=== PATIENT | female | born 1985 | race Two or more races ===

== ENCOUNTER 2019-12-15 15:09 | Outpatient (CLI) | payer OTHER, SELFPAY ==
--- NOTE | ~2019-12-15 | XR_ITS ---
EXAMINATION: XR knee LT 2V DATE: 12/15/2019 15:41 INDICATION: Left knee pain. TECHNIQUE: 2 views of left knee were obtained. COMPARISON: None. FINDINGS: Bone alignment is normal. No fracture. Joint spaces are well maintained. There is no knee j oint effusion. IMPRESSION: 1. Normal left knee. Reviewed, dictated and finalized at location A. IMPRESSION: 1. Normal left knee.
== END 2019-12-15 15:10 | disposition home or self-care (01) ==
PROVIDERS: PCP Emergency Medicine; Visit Provider Emergency Medicine
DX: M25.562 Pain in left knee (principal)
CPT/HCPCS: 73560

== ENCOUNTER 2020-07-22 13:12 | Emergency (ER) | payer OTHER, SELFPAY ==
--- NOTE | ~2020-07-22 | XR_ITS ---
EXAMINATION: XR lumbar spine 2-3V DATE: 07/22/2020 14:59 INDICATION: Low back pain. TECHNIQUE: 3 views of lumbar spine were obtained. COMPARISON: None. FINDINGS: Bone alignment is normal. Vertebral body heights and intervertebral disc heights are normal . The facet joints are unremarkable. There is an intrauterine device in expected position. IMPRESSION: 1. Normal lumbar spine. Reviewed, dictated and finalized at location A. IMPRESSION: 1. Normal lumbar spine.
--- NOTE | ~2020-07-22 | XR_ITS ---
EXAMINATION: XR pelvis 1-2V DATE: 07/22/2020 14:59 INDICATION: Right sacroiliac joint pain. TECHNIQUE: An anteroposterior view of the pelvis was obtained. COMPARISON: CT abdomen and pelvis 08/07/2018 FINDINGS: Bone alignment is normal. No fracture. There is mild osteoarthritis of the hips. The sacroi liac joints are normal. There is an intrauterine device in expected position. IMPRESSION: 1. Mild osteoarthritis of the hips. Reviewed, dictated and finalized at location A.
[2020-07-22 13:16] VITALS: BP 110/71; PULSE 92; RESP 20; TEMP 36.6; O2SAT 100
--- NOTE | 2020-07-22 14:34 | ED.GENADULT ---
HPI - General Adult General Chief complaint: Back Pain/Injury Stated complaint: LOW BACK Time Seen by Provider: 07/22/20 13:25 Source: patient Mode of arrival: ambulatory Limitations: no limitations History of Present Illness HPI narrative: Patient presents for evaluation of low back pain. She indicates she has chronic low back pain following 3 falls several years ago. She not sustained any fracture at that time. However she has had intermittent low back pain since that time. States that pain is in the right lower back with radiation of the right buttock. She describes the pain as sharp and rates it 10 out of 10 in severity. She also has a aching sensation in bilateral lower extremities. She states she saw a chiropractor in March of this year and x-ray and performed some therapy. She states in the last 2-3 days her pain has worsened, although she cannot identify cause for her worsening symptoms. She denies paresthesias and urinary symptoms. She has a hx of ulcerative colitis and was previously on remicade. She has not been on any therapies for UC in a few years. She had a GI provider at [facility] but she has not seen them since the start of the COVID pandemic. She denies any abdominal pain and change in bowel pattern. She has chronic diarrhea. She states that movement worsens her pain. No additional complaints or concerns. Related Data Home Medications Medication Instructions Recorded Confirmed ibuprofen 07/22/20 Allergies Allergy/AdvReac Type Severity Reaction Status Date / Time No Known Allergies Allergy Unverified 07/22/20 13:33 Review of Systems Review of Systems: Narrative: CONSTITUTIONAL: Denies fever, chills, or sweats. EYES: Denies visual changes, redness, or discharge. ENT: Denies rhinorrhea, congestion, sore throat, or otalgia. CARDIOVASCULAR: Denies chest pain, palpitations, or edema. RESPIRATORY: Denies cough or dyspnea. GASTROINTESTINAL: Denies abdominal pain, nausea, vomiting, or diarrhea. GENITOURINARY: Denies dysuria or hematuria. SKIN: Denies rash or itching. MUSCULOSKELETAL: Reports low back pain with radiation into the right lower extremity. Reports bilateral lower extremity myalgias. NEUROLOGIC: Denies headache, numbness, dizziness, or weakness. PSYCHIATRIC: Denies anxiety or depression. [facility] Past Medical History Medical History (Updated 07/22/20 @ 17:38 by Gonzales Be, DISEASE AND INSECT CONTROL BOSS, ) Iron deficiency Thalassemia Ulcerative colitis Surgical History Surgical History History of section Family History Family History Mother No pertinent family history Social History Social History Living arrangements: with family Gender identity (if verbalized by the patient): Female Sexual Orientation (if Verbalized by the Patient): Straight or Heterosexual Spiritual care concerns: No Exam Narrative: Exam Narrative: GENERAL: Well-appearing, well-nourished, and in no acute distress. HEAD: Normocephalic, atraumatic. EYES: PERRLA and EOMI. ENT: Nares clear, no rhinorrhea or epistaxis. Mucous membranes moist. Oropharynx without tonsillar hypertrophy exudate or other lesions. Bilateral TMs pearly cheung nonbulging NECK: Supple. No adenopathy or masses. No carotid bruits or JVD CHEST: Clear to auscultation. No respiratory distress. No wheezes rales or rhonchi HEART: Regular rate and rhythm. No murmur heard. Normal peripheral pulses. ABDOMEN: Soft, nontender, nondistended, normal active bowel sounds. EXTREMITIES: Tenderness over the right SI joint. No tenderness in midline or paraspinous muscles bilaterally of lumbar spine. Positive straight leg raise bilaterally at approximately 30 degrees. Exhibits facial grimacing when asked to perform movements during my exam. SKIN: Warm, dry, no rash. NEURO: No focal
[2020-07-22] MEDS: HYDROcodone/acetaminophen (*CRX) 5-325 MG TABLET 2 TAB PO (14:53)
[2020-07-22] MEDS: CYCLOBENZAPRINE HCL 10 MG TABLET PO (14:54)
[2020-07-22 14:59] LABS: Add Urine Microscopic? NO; Appearance Urine Clear (Clear); Bilirubin Urine Negative (Negative); Blood Urine Negative (Negative); Color Urine Yellow (Yellow); Glucose Urine UA Negative (Negative); Ketones Urine Negative (Negative); Leukocyte Esterase Ur Negative LEU/UL (Negative); Nitrate Urine Negative (Negative); Protein Urine Negative (Negative); Specific Grav Ur 1.009 (1.001-1.035); Urobilinogen Urine Negative mg/dL (<2.0)
[2020-07-22 15:23] VITALS: TEMP 36.6
[2020-07-22] MEDS: methylPREDNISolone SOD SUCC 125 MG VIAL IM (16:22)
[2020-07-22] MEDS: diazePAM (*CRX) 5 MG TABLET PO (16:22)
[2020-07-22 16:24] VITALS: BP 111/71; PULSE 65; RESP 18; O2SAT 100
[2020-07-22 16:37] LABS: Basophils Absolute Auto 0.1 K/mm3 (0.0-0.1); Basophils Percent Auto 0.6 % (0.2-1.2); Eosinophils Absolute Auto 0.1 K/mm3 (0-0.3); Eosinophils Percent Auto 1.6 % (0-4.4); Hematocrit 32.2 % (37.0-47.0); Hemoglobin 10.1 g/dL (12.0-15.0); Immature Granulocyte Absolute 0.03 K/mm3 (0.00-0.031); Immature Granulocyte Percent A 0.4 % (0-0.5); Immature Platelet Fraction Pct 7.2 % (0.9-11.2); Lymphocytes Percent Auto 30.6 % (18.3-44.2); Mean Corpuscular HGB Conc 31.4 g/dl (32-36); Mean Corpuscular Hemoglobin 22.1 pg (26-34); Mean Corpuscular Volume 70.3 fl (80-100); Monocytes Absolute Auto 0.5 K/mm3 (0.1-0.6); Monocytes Percent Auto 6.4 % (2.6-8.5); Neutrophils Percent Auto 60.4 % (45.5-73.1); Platelet Count Result 204 k/mm3 (150-375); Red Blood Count 4.58 M/mm3 (4.2-5.4); White Blood Count 8.2 K/mm3 (4.5-10.0)
[2020-07-22 16:48] LABS: Alanine Aminotransferase 14 U/L (4-35); Albumin Level 4.2 g/dL (3.5-5.1); Alkaline Phosphatase 34 U/L (38-126); Anion Gap 5 mmol/L (8-16); Aspartate Amino Transferase 17 U/L (14-36); Bilirubin,Total 0.6 mg/dL (0.2-1.3); Blood Urea Nitrogen 12 mg/dL (7-17); CRP 0.7 mg/dL (<1.0); Calcium 9.1 mg/dL (8.4-10.2); Carbon Dioxide 26 mmol/L (22-30); Chloride 107 mmol/L (98-107); Estimated CRCL calculation 120 ml/min; Estimated Glomerular Filt Rate > 60; Glucose 95 mg/dL (65-105); Potassium 4.1 mmol/L (3.4-5.0); Sodium 138 mmol/L (137-145)
[2020-07-22 17:14] LABS: Erythrocyte Sedimentation Rate 17 mm/hr (0-20)
[2020-07-22 17:48] VITALS: BP 118/78; PULSE 78; RESP 18; O2SAT 98
== END 2020-07-22 18:03 | disposition home or self-care (01) ==
PROVIDERS: Emergency Provider Nurse Practitioner; PCP Emergency Medicine
DX: M54.16 Radiculopathy, lumbar region (principal); K51.90 Ulcerative colitis, unspecified, without complications; M16.0 Bilateral primary osteoarthritis of hip; D56.9 Thalassemia, unspecified; E61.1 Iron deficiency
CPT/HCPCS: 36415; 72100; 72170; 80053; 81003; 81025; 85025; 85055; 85652; 86140; 96372; 99284; A9270; J2930

== ENCOUNTER 2021-07-21 23:39 | Emergency (ER) | payer OTHER, SELFPAY ==
--- NOTE | ~2021-07-21 | XR_ITS ---
EXAMINATION: XR chest 2V DATE: 07/22/2021 00:50 INDICATION: Cough TECHNIQUE: PA and lateral views of the chest are obtained. COMPARISON: None available FINDINGS: The lungs are free of acute opacities. There is no pleural effusion or pneumothorax. The ca rdiomediastinal silhouette is normal. The visualized bones and soft tissues are unremarkable. IMPRESSION: 1. No acute cardiopulmonary abnormality. Reviewed, dictated and finalized at location A.
[2021-07-21 23:45] VITALS: BP 104/67; PULSE 99; RESP 16; TEMP 36.1; O2SAT 100
--- NOTE | 2021-07-22 00:37 | ED.URI ---
HPI - URI/Sore Throat General Chief Complaint: Upper Respiratory Infection Stated Complaint: cough/sore throat/ pink eye Time Seen by Provider: 07/21/21 23:47 History of Present Illness HPI Narrative: 36-year-old female presents the emergency room with complaints of right ear pain, headache, cough, sore throat and right eye pain. Patient states she was recently [place] and returned and was exposed to multiple sick contacts within her family. Patient states that both of her children were recently diagnosed with COVID, and one of her children was diagnosed with conjunctivitis. Patient denies fever. Patient reports mild shortness of breath. Patient denies chest pain Related Data Allergies Allergy/AdvReac Type Severity Reaction Status Date / Time No Known Allergies Allergy Verified 07/21/21 23:48 Review of Systems Review of Systems: CONSTITUTIONAL: Denies fever, chills, or sweats. EYES: Denies visual changes. Erythema and purulent drainage in the right eye ENT: Reports rhinorrhea, congestion, sore throat, and otalgia CARDIOVASCULAR: Denies chest pain, palpitations, or edema. RESPIRATORY: Denies cough or dyspnea. GASTROINTESTINAL: Denies abdominal pain, nausea, vomiting, or diarrhea. GENITOURINARY: Denies dysuria or hematuria. SKIN: Denies rash or itching. MUSCULOSKELETAL: Denies back pain, joint pain, or myalgia. NEUROLOGIC: Denies headache, numbness, dizziness, or weakness. PSYCHIATRIC: Denies anxiety or depression. 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 HEAD: Normocephalic, atraumatic. EYES: PERRLA and EOMI. right eye conjunctival erythema with purulent drainage ENT: Nares clear, no rhinorrhea or epistaxis. Mucous membranes moist. Oropharynx without tonsillar hypertrophy exudate or other lesions. Bilateral TMs pearly cheung nonbulging. Clear effusion bilaterally NECK: Supple. No adenopathy or masses. No carotid bruits or JVD CHEST: Clear to auscultation. No respiratory distress. No wheezes rales or rhonchi HEART: Regular rate and rhythm. No murmur heard. Normal peripheral pulses. ABDOMEN: Soft, nontender, nondistended, normal active bowel sounds. EXTREMITIES: Normal range of motion. No edema. SKIN: Warm, dry, no rash. NEURO: No focal deficits. Alert and oriented x3. PSYCH: Normal mood and affect. Course Vital Signs Vital signs: Vital Signs Temperature 36.1 C L 07/21/21 23:45 Pulse Rate 99 07/21/21 23:45 Respiratory Rate 16 07/21/21 23:45 Blood Pressure 104/67 07/21/21 23:45 Pulse Oximetry 100 07/21/21 23:45 Temperature 36.1 C L 07/21/21 23:45 Pulse Rate 87 07/22/21 00:57 Respiratory Rate 18 07/22/21 00:57 Blood Pressure 94/63 L 07/22/21 00:57 Pulse Oximetry 98 07/22/21 00:57 MDM - URI/Sore Throat Lab Data Labs: Lab Results 07/22/21 Range/Units 01:02 Influenza A (RT-PCR) Negative (Negative) Influenza B (RT-PCR) Negative (Negative) SARS-CoV-2 RNA (RT-PCR) Negative Imaging Data My impression: CXR: No acute cardiopulmonary process Discharge Plan Discharge Clinical
[2021-07-22 00:57] VITALS: BP 94/63; PULSE 87; RESP 18; O2SAT 98
[2021-07-22 01:46] LABS: Influenza A QL RT-PCR Negative (Negative); Influenza B QL RT-PCR Negative (Negative); SARS-CoV-2 RNA PCR Negative
[2021-07-22 02:37] VITALS: BP 95/72; PULSE 89; RESP 18; O2SAT 100
== END 2021-07-22 02:38 | disposition home or self-care (01) ==
PROVIDERS: Emergency Provider Nurse Practitioner Family; PCP Emergency Medicine
DX: J06.9 Acute upper respiratory infection, unspecified (principal); H10.31 Unspecified acute conjunctivitis, right eye; Z20.822 Contact with and (suspected) exposure to COVID-19; D56.9 Thalassemia, unspecified; E61.1 Iron deficiency; F17.210 Nicotine dependence, cigarettes, uncomplicated
CPT/HCPCS: 71046; 87502; 96372; 99283; C9803; J1100; U0003; U0005

== ENCOUNTER 2022-01-04 00:42 | Day surgery (SDC) | payer OTHER, SELFPAY ==
[2021-12-20 13:57] VITALS: BMI 25.3
--- NOTE | 2022-01-03 15:06 | PM.HPGS ---
History of Present Illness History of Present Illness Consent: Risks, benefits, and alternatives have been discussed and questions answered. Patient agrees to proceed with procedure. Chief complaint: ulcerative colitis, nausea Narrative: Tessy Medina is a 36 year old female was referred for investigation of a poor appetite, early satiety and nausea, and also because she has a history of ulcerative colitis. She is not on any medication for that, it states that the last automobile damage field appraiser she saw said that she did not have ulcerative colitis. She denies diarrhea in fact is often constipated. One of her main complaints that she is extremely gassy. She develops bloating particularly after eating. She burps a lot and passes gas a lot. She does not use a CPAP machine. 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 Gender identity (if verbalized by the patient): Female Sexual Orientation (if Verbalized by the Patient): Straight or Heterosexual Spiritual care concerns: No Meds Home Medications and Allergies Home Medications Medication Instructions Recorded Confirmed Type doxycycline hyclate 100 mg capsule 100 mg PO DAILY 08/30/21 12/20/21 History Allergies Allergy/AdvReac Type Severity Reaction Status Date / Time No Known Allergies Allergy Verified 01/04/22 08:46 Exam Const: General: alert Orientation/consciousness: patient oriented x3 Resp: Auscultation: clear to auscultation bilaterally Cardio: Rhythm: regular rhythm GI: GI Palp: Yes Soft to palpation and No Tenderness to palpation present (GI) Neuro: General: patient oriented x3 Assessment and Plan Assessment and plan (1) Nausea: Code(s): R11.0 - Nausea Status: Acute Assessment and Plan: EGD with possible biopsy or dilatation or cautery. (2) Ulcerative colitis: Qualifiers: Digestive disease complication type: unspecified complication Ulcerative colitis location: unspecified ulcerative colitis location Qualified Code(s): K51.919 - Ulcerative colitis, unspecified with unspecified complications Code(s): K51.90 - Ulcerative colitis, unspecified, without complications Status: Acute Assessment and Plan: Colonoscopy with possible biopsy or polypectomy or cautery or injection of substances.
[2022-01-04 08:47] VITALS: BP 105/69; PULSE 90; RESP 18; TEMP 36.4; O2SAT 100
[2022-01-04] MEDS: LACTATED RINGERS 1,000 ML 150 ML IV CONT (08:55)
--- NOTE | 2022-01-04 09:19 | WPDANESEPPF ---
Anes - Initial Pre Proc Eval Procedure: Operation Date: 01/04/22 09:30 Proposed Procedures p Esophagogastroduodenoscopy & Colonoscopy - Byron Tsang MD Date/Time: 01/04/22 09:19 Surgeon: Byron Tsang MD Pre Op Diagnosis: ulcerative colitis, nausea Patient Data Age: 36 Gender: F Height: 1.65 m Weight: 74.7 kg Last Vital Signs Temp 97.6 F 01/04/22 08:47 Pulse 90 01/04/22 08:47 Resp 18 01/04/22 08:47 BP 105/69 01/04/22 08:47 Pulse Ox 100 01/04/22 08:47 O2 Del Method Room Air 01/04/22 08:47 Allergies Allergy/AdvReac Type Severity Reaction Status Date / Time No Known Allergies Allergy Verified 01/04/22 08:46 Home Medications Medication Instructions Recorded Confirmed Type doxycycline hyclate 100 mg capsule 100 mg PO DAILY 08/30/21 12/20/21 History Patient hx anesthesia problems: none Family hx anesthesia problems: none Results Review: All pre-operative results and documents have been reviewed as part of the pre-operative evaluation. 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 Gender identity (if verbalized by the patient): Female Sexual Orientation (if Verbalized by the Patient): Straight or Heterosexual Spiritual care concerns: No Anes - Eval Final PreProcedure Day of Procedure 01/04/22 09:19 Patient weight: normal Heart: regular rate and rhythm Lungs: clear to auscultation Airway: Mallampati scale class II Neurological: alert and oriented Last oral intake: >/= 8 hours ASA classification: III Emergent: no Anesthetic plan: proceed Anesthesia type and monitoring: general GIVS and standard monitoring Results Review: All pre-operative results and documents have been reviewed as part of the pre-operative evaluation. Informed Consent: The patient's anesthetic plan and its attendant risks and benefits were discussed with the patient/family/POA. Questions were solicited and answers provided to the satisfaction of the patient/family/POA.
--- NOTE | 2022-01-04 09:53 | SUR.OPER ---
EGD START: 931; END: 934. COLONOSCOPY START: 940; END: 950.
[2022-01-04 09:54] VITALS: BP 94/62; PULSE 69; RESP 20; O2SAT 100
[2022-01-04 10:04] VITALS: BP 96/58; PULSE 55; RESP 16; O2SAT 100
[2022-01-04 10:14] VITALS: BP 98/56; PULSE 60; RESP 24; O2SAT 100
--- NOTE | 2022-01-04 10:23 | SUR.PHASEII ---
Informed spouse that patient received sedation and cannot drive for 24 hours - per patient request.
== END 2022-01-04 10:25 | disposition home or self-care (01) ==
PROVIDERS: PCP Emergency Medicine; Visit Provider Internal Medicine Gastroenterology
PROC: 0DJ08ZZ Inspection of Upper Intestinal Tract, Via Natural or Artificial Opening Endoscopic (ICD-10-PCS; CPT 43235; principal; 2022-01-04 09:30)
DX: K62.6 Ulcer of anus and rectum (principal); K21.9 Gastro-esophageal reflux disease without esophagitis; F17.210 Nicotine dependence, cigarettes, uncomplicated
CPT/HCPCS: 45380; 43239; 87081; 88305; J2704; J7120

== ENCOUNTER 2022-04-09 09:33 | Outpatient (CLI) | payer OTHER, SELFPAY ==
--- NOTE | ~2022-04-09 | US_ITS ---
Abdominal Sonogram: Real-time sonographic imaging of the abdomen was performed. Clinical History: High ferritin Findings: The liver appears normal with no evidence of mass lesion or bile duct dilatation. Main por elida vein demonstrates normal direction of flow. The spleen is normal in size without evidence of foca l lesion. The gallbladder is well distended, and appears normal with no evidence of gallstone or wal l thickening. The common bile duct measures 5 mm. The visualized pancreas, aorta, and IVC are unrema rkable. The right kidney measures 12.4 cm in length and the left kidney measures 12.2 cm. There is no hydronephrosis or renal calculus. Impression: Unremarkable abdominal ultrasound. Reviewed, dictated and finalized at location . ICAL SUPERVISOR Impression: Unremarkable abdominal ultrasound.
== END 2022-04-09 09:34 | disposition home or self-care (01) ==
PROVIDERS: PCP Emergency Medicine; Visit Provider Emergency Medicine
DX: R79.89 Other specified abnormal findings of blood chemistry (principal)
CPT/HCPCS: 76700

== ENCOUNTER 2022-04-23 11:10 | Outpatient (CLI) | payer OTHER, SELFPAY ==
--- NOTE | ~2022-04-23 | XR_ITS ---
EXAMINATION: XR abdomen/kub 1V INDICATION: Abdominal distention with constipation TECHNIQUE: Supine views of the abdomen were obtained on 2 radiographs. COMPARISON: None FINDINGS: No free intraperitoneal gas or evidence of bowel obstruction. There is a normal volume of c olonic stool. The visualized left lung base is clear. An IUD is noted in the pelvis. IMPRESSION: 1. No radiographic correlate for the patient's symptoms. Reviewed, dictated and finalized at location L. [employer] SALES ASSISTANT
== END 2022-04-23 11:11 | disposition home or self-care (01) ==
PROVIDERS: PCP Emergency Medicine; Visit Provider Internal Medicine Gastroenterology
DX: R14.0 Abdominal distension (gaseous) (principal)
CPT/HCPCS: 74018

== ENCOUNTER 2023-04-28 00:49 | Day surgery (SDC) | payer OTHER, SELFPAY ==
[2023-04-14 14:26] VITALS: BMI 28.7
--- NOTE | 2023-04-25 10:57 | SUR.PREOP ---
Patient called regarding upcoming procedure. Reviewed preop instructions, new appointment times, and procedure prep.
--- NOTE | 2023-04-25 14:03 | PM.HPGS ---
History of Present Illness History of Present Illness Consent: Risks, benefits, and alternatives have been discussed and questions answered. Patient agrees to proceed with procedure. Chief complaint: Dysphagia Narrative: Tessy Medina is a 37 year old female Referred for investigation of dysphagia. She did have a EGD a little over a year ago which revealed only reflux changes. At that time she was troubled by nausea. Now she often feels as though there is a lump in her throat. She feels that something swallows by her larynx had will rise up and go back down. She has appointment to see an ENT physician next week. She does occasionally but very rarely feel that food is not going down all the way. Usually it is something spicy. She also feels that she has acid overload. Review of Systems Review of Systems: All systems reviewed & are unremarkable except as noted in HPI and below PMFSH Past Medical History Medical History Iron deficiency Thalassemia Ulcerative colitis Surgical History Surgical History History of section Family History Family History Mother , age 58 Ovarian cancer Sibling Hypertension Other Thalassemia Social History Social History Years smoked: 5 Smoking status: Current every day smoker Tobacco type: cigarettes Alcohol intake: never Substance use: never Substance use type: does not use Living arrangements: with family Occupation/Education: other 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 Gender identity (if verbalized by the patient): Female Sexual Orientation (if Verbalized by the Patient): Straight or Heterosexual Spiritual care concerns: No Meds Home Medications and Allergies Home Medications Medication Instructions Recorded Confirmed Type omeprazole 40 mg capsule,delayed 40 mg PO DAILY 04/14/23 04/14/23 History release Allergies Allergy/AdvReac Type Severity Reaction Status Date / Time No Known Allergies Allergy Verified 04/14/23 14:27 Exam Const: General: alert Orientation/consciousness: patient oriented x3 Resp: Auscultation: clear to auscultation bilaterally Cardio: Rhythm: regular rhythm GI: GI Palp: Yes Soft to palpation and No Tenderness to palpation present (GI) Neuro: General: patient oriented x3 Assessment and Plan Assessment and plan (1) Dysphagia: Code(s): R13.10 - Dysphagia, unspecified Status: Acute Assessment and Plan: EGD with possible biopsy or dilatation or cautery.
[2023-04-28 10:36] VITALS: BP 97/78; PULSE 91; RESP 17; TEMP 36.8; O2SAT 100
[2023-04-28] MEDS: LACTATED RINGERS 1,000 ML 150 ML IV CONT (11:02)
--- NOTE | 2023-04-28 11:13 | P.PNAN_ITS ---
Anes - Initial Pre Proc Eval Procedure: Operation Date: 04/28/23 11:30 Proposed Procedures p Esophagogastroduodenoscopy - Byron Tsang MD Date/Time: 04/28/23 11:13 Surgeon: yBron Tsang MD Pre Op Diagnosis: Dysphagia Patient Data Age: 37 Gender: F Height: 1.65 m Weight: 78.4 kg Last Vital Signs Temp 98.3 F 04/28/23 10:36 Pulse 91 04/28/23 10:36 Resp 17 04/28/23 10:36 BP 97/78 L 04/28/23 10:36 Pulse Ox 100 04/28/23 10:36 O2 Del Method Room Air 04/28/23 10:36 Allergies Allergy/AdvReac Type Severity Reaction Status Date / Time No Known Allergies Allergy Verified 04/14/23 14:27 Home Medications Medication Instructions Recorded Confirmed Type omeprazole 40 mg capsule,delayed 40 mg PO DAILY 04/14/23 04/14/23 History release Patient hx anesthesia problems: none Family hx anesthesia problems: none Results Review: All pre-operative results and documents have been reviewed as part of the pre- operative evaluation. 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 Gender identity (if verbalized by the patient): Female Sexual Orientation (if Verbalized by the Patient): Straight or Heterosexual Spiritual care concerns: No Anes - Eval Final PreProcedure Day of Procedure 04/28/23 11:13 Patient weight: obese Heart: regular rate and rhythm Lungs: clear to auscultation Airway: Mallampati scale class II Neurological: alert and oriented Last oral intake: >/= 8 hours ASA classification: III Emergent: no Anesthetic plan: proceed Anesthesia type and monitoring: general GIVS and standard monitoring Results Review: All pre-operative results and documents have been reviewed as part of the pre- operative evaluation. Informed Consent: The patient's anesthetic plan and its attendant risks and benefits were discussed with the patient/family/POA. Questions were solicited and answers provided to the satisfaction of the patient/family/POA.
[2023-04-28 11:29] VITALS: BP 101/68; PULSE 60; RESP 20; O2SAT 100
[2023-04-28 11:39] VITALS: BP 106/54; PULSE 60; RESP 20; O2SAT 100
[2023-04-28 11:49] VITALS: BP 88/54; PULSE 70; RESP 20; O2SAT 100
[2023-04-28 11:59] VITALS: BP 98/61; PULSE 74; RESP 20; O2SAT 100
[2023-04-28 12:09] VITALS: BP 95/65; PULSE 67; RESP 18; O2SAT 100
--- NOTE | 2023-04-28 13:08 | SUR.PHASEII ---
PT INTO POST OP 1129, BLOOD PRESSURE 73/41. PT SLEEPING. ANAY Chang CRNA AT BEDSIDE MEDICATING PT AND MONITORING WITH RN. PT'S BLOOD PRESSURE SOON 101/61, ORDERS RECEIVED FROM ANAY Chang CRNA IF NEEDED. PT AWAKE, ALERT AND DRINKING WATER. DR HENDERSON MADE AWARE, ORDERS RECEIVED TO GIVE PT MORE IVFs. ORDER CARRIED OUT BY THIS RN. VITAL SIGNS REMAIN STABLE AND BACK TO BASELINE (90/60s) PRIOR TO DISCHARGE. PT GIVEN DISCHARGE INSTRUCTIONS AND STATES UNDERSTANDING.
== END 2023-04-28 12:05 | disposition home or self-care (01) ==
PROVIDERS: PCP Emergency Medicine; Visit Provider Internal Medicine Gastroenterology
PROC: 0DJ08ZZ Inspection of Upper Intestinal Tract, Via Natural or Artificial Opening Endoscopic (ICD-10-PCS; CPT 43235; principal; 2023-04-28 11:30)
DX: K21.9 Gastro-esophageal reflux disease without esophagitis (principal); E61.1 Iron deficiency; D56.9 Thalassemia, unspecified; K51.90 Ulcerative colitis, unspecified, without complications; F17.210 Nicotine dependence, cigarettes, uncomplicated; E66.9 Obesity, unspecified; Z68.28 Body mass index [BMI] 28.0-28.9, adult; Z80.41 Family history of malignant neoplasm of ovary
CPT/HCPCS: 43239; 88305; J2001; J2371; J2704; J7120

== ENCOUNTER 2023-12-08 11:38 | Outpatient (CLI) | payer OTHER, SELFPAY ==
--- NOTE | ~2023-12-08 | XR_ITS ---
Clinical Indication: Acute bronchitis PA and lateral views of the chest: Comparison: None Findings: The lungs are clear, without evidence of focal consolidation or pleural effusion. Cardiome diastinal silhouette is within normal limits. Bones and soft tissues are unremarkable. Impression: Normal chest. Reviewed, dictated and finalized at location . Impression: Normal chest.
== END 2023-12-08 11:39 | disposition home or self-care (01) ==
PROVIDERS: PCP Emergency Medicine; Visit Provider Emergency Medicine
DX: J20.9 Acute bronchitis, unspecified (principal)
CPT/HCPCS: 71046

== ENCOUNTER 2024-03-12 00:19 | Day surgery (SDC) | payer OTHER, SELFPAY ==
[2024-03-05 14:50] VITALS: BMI 28.0
--- NOTE | 2024-03-05 14:56 | PC.NURSE ---
Report to the Outpatient Waiting Room, entrance under the green pavilion located off [facility], at time _0830_ on date _[id number]_. Planned Procedure Time: _1030_.? Time changes happen often and if your time is changed the preop area will call you the afternoon before. - You and your visitor will be asked to self-screen and do not enter if you have any COVID symptoms. Please call surgeon if you need to reschedule. - A mask is optional within the hospital at this time. Patients may have clear liquids (water, carbonated beverages, clear teas, apple juice) until 3 hours prior to surgery with a maximum of 20 ounces. - No food from midnight until time of surgery and no smoking. This includes no chewing gum, candy or mints. Take only the following medications with a SIP of water on the morning of surgery: __None DO NOT STOP ANY OF YOUR OTHER PRESCRIPTION MEDICATIONS PRIOR TO SURGERY EXCEPT THE FOLLOWING Medications to discontinue per physician ____None Please no make-up, nail malaysian, hairspray, perfume, deodorant, or body powder the day of surgery.? No jewelry (including any body piercings) or valuables the day of surgery, leave them at home.? Please take a shower or bath the night before, or the morning of, surgery with an antibacterial soap.? Wear comfortable, loose fitting clothing.? - Jewelry must be removed prior to entering the operating room.? Rings and piercings that are not removed may be cut off. - The hospital will not accept responsibility for valuables.? - Please leave all valuables, including medications, at home the day of surgery. If you are going home after surgery, a licensed truck driver salesperson must drive you home.? - NO public transportation without another adult if you receive anesthesia. - We recommend that an adult stay with you for 24 hours following discharge. - We also recommend that you do not drive, make important decision, drink alcoholic beverages, or take any drugs that were not prescribed by your health care provider for at least 24 hours after your discharge time. Follow any additional instructions given to you from your surgeon. Telephone instructions given to __Tabby__and asked if any additional questions and then verbalized understanding. Patient advised to call surgeon office or pre surgery nurse liaison [phone] if any additional questions.
[2024-03-12] VITALS (11 sets, daily range): BP systolic 87–99; BP diastolic 43–67; PULSE 50–74; RESP 10–18; TEMP 36.2–36.3; O2SAT 98–100
[2024-03-12] MEDS: ACETAMINOPHEN 500 MG TABLET 1000 MG PO (09:35)
[2024-03-12] MEDS: LACTATED RINGERS 1,000 ML 30 ML IV CONT ×2 (09:40→13:17)
[2024-03-12] MEDS: KETOROLAC 15 MG/ML VIAL (*BKC) IV PUSH (09:42)
--- NOTE | 2024-03-12 09:57 | WPDANESEPPF ---
Anes - Initial Pre Proc Eval Procedure: Operation Date: 03/12/24 10:30 Proposed Procedures p Laparoscopic Bilateral Salpingectomy with Right Salpingo-oophorectomy - Lexx Baryr MD Date/Time: 03/12/24 09:57 Surgeon: Lexx Barry MD Pre Op Diagnosis: cyst of right ovary Patient Data Age: 38 Gender: F Height: 1.65 m Weight: 78 kg Last Vital Signs Temp 97.2 F L 03/12/24 09:11 Pulse 73 03/12/24 09:11 Resp 18 03/12/24 09:11 BP 90/56 L 03/12/24 09:11 Pulse Ox 100 03/12/24 09:11 O2 Del Method Room Air 03/12/24 09:11 Allergies Allergy/AdvReac Type Severity Reaction Status Date / Time No Known Allergies Allergy Verified 03/12/24 09:21 Home Medications ?Medication ?Instructions ?Recorded ?Confirmed ?Type omeprazole 40 mg capsule,delayed 40 mg PO DAILY 04/14/23 03/12/24 History release folic acid 1 mg tablet 1 mg PO DAILY 03/05/24 03/12/24 History Patient hx anesthesia problems: none Family hx anesthesia problems: none Results Review: All pre-operative results and documents have been reviewed as part of the pre-operative evaluation. [facility] Past Medical History Medical History Iron deficiency Thalassemia Ulcerative colitis Surgical History Surgical History History of section Family History Family History Mother , age 58 Ovarian cancer Sibling Hypertension Other Thalassemia Social History Social History Years smoked: 10 Smoking status: Current every day smoker Tobacco type: cigarettes Alcohol intake: never Substance use: never Substance use type: does not use Do You Feel Safe in your Home?: Yes Lack of Transportation: No Lack of Food: Never True Current Housing: I Have Housing Concerned About Future Housing: No Difficulty Paying Gas/Electric Bills: No Difficulty Paying for Meds: No Currently Unemployed: No Education: High School Diploma/GED Difficulty w/ Childcare or Family Care: No Living arrangements: with family Occupation/Education: other 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 Gender identity (if verbalized by the patient): Female Sexual Orientation (if Verbalized by the Patient): Straight or Heterosexual Spiritual care concerns: No Anes - Eval Final PreProcedure Day of Procedure 03/12/24 09:57 Patient weight: overweight Heart: regular rate and rhythm Lungs: clear to auscultation Airway: Mallampati scale class II Neurological: alert and oriented Last oral intake: >/= 8 hours ASA classification: II Emergent: no Anesthetic plan: proceed Anesthesia type and monitoring: general ETT and standard monitoring Results Review: All pre-operative results and documents have been reviewed as part of the pre-operative evaluation. Thalaseemia, only on folate. Poss IBD but pt states dx is uncertain after recent GI workup. Pt can walk 1-2 fos, no cp, only mild dyspnea if walking quickly. Informed Consent: The patient's anesthetic plan and its attendant risks and benefits were discussed with the patient/family/POA. Questions were solicited and answers provided to the satisfaction of the patient/family/POA.
--- NOTE | 2024-03-12 10:11 | PM.IMHP ---
H&P: HPI History of Present Illness Date/Time: 03/12/24 10:11 Chief Complaint: Pelvic pain Narrative: This patient is a 38-year-old female with right ovarian cyst unwanted fertility. We have agreed to perform laparoscopic right oophorectomy and bilateral salpingectomy with IUD removal. The patient understands the details of the procedure. The procedure has been explained in detail. She understands the risks. She understands that injuries may occur that result in hospitalization, more surgery, and severe illness. She understands risk of hemorrhage and infection. She denies any chest pain or shortness of breath. She denies any nausea, vomiting, fever, chills. Review of Systems Review of Systems: All systems reviewed & are unremarkable except as noted in HPI and below Constitutional: Constitutional: Denies chills, Denies fatigue, Denies fever(s) and Denies weakness Eyes: Eyes: Denies blurry vision, Denies change in vision, Denies loss of peripheral vision, Denies loss of vision, Denies other visual disturbances and Denies eye pain ENT: Denies vertigo, Denies dizziness, Denies hearing loss, Denies mouth pain, Denies nasal obstruction, Denies neck mass and Denies neck pain Cardiovascular: Cardiovascular: Denies chest pain, Denies diaphoresis, Denies syncope, Denies leg edema and Denies dyspnea Respiratory: Respiratory: Denies chest congestion, Denies cough, Denies hemoptysis, Denies dyspnea and Denies wheezing Gastrointestinal: Gastrointestinal: Denies abdominal pain, Denies constipation, Denies diarrhea, Denies nausea and Denies vomiting Genitourinary: Genitourinary: Denies hematuria, Denies change in libido, Denies nocturia, Denies genital lesions, Denies flank pain and Denies urinary urgency Musculoskeletal: Musculoskeletal: Denies abnormal gait, Denies back pain, Denies myalgias, Denies arthralgias, Denies joint swelling, Denies muscle weakness and Denies neck pain Integumentary/Breasts: Skin/Breast: Denies swelling, Denies breast pain, Denies breast mass, Denies dry skin, Denies nipple discharge, Denies unusual bruising and Denies jaundice Neurologic: Denies Neuro-related abnormal movements, Denies Abnormal speech present, Denies abnormal gait, Denies behavioral changes, Denies confusion, Denies vertigo, Denies dizziness, Denies syncope, Denies loss of vision, Denies memory loss, Denies convulsions and Denies weakness Psychiatric: Psychiatric: Denies abnormal sleep pattern, Denies behavioral changes, Denies change in libido, Denies confusion, Denies depression, Denies anhedonia and Denies memory loss Endocrine: Endocrine: Reports no additional endocrine complaints, Denies change in libido and Denies fatigue Hematologic/Lymphatic: Hematologic/Lymphatic: Reports no additional hematologic/lymphatic complaints Allergic/Immunologic: Allergic/Immunologic: Reports no additional allergic/immunologic complaints and Denies wheezing PMFSH Past Medical History Medical History Iron deficiency Thalassemia Ulcerative colitis Surgical History Surgical History History of section Family History Family History Mother , age 58 Ovarian cancer Sibling Hypertension Other Thalassemia Social History Social History Years smoked: 10 Smoking status: Current every day smoker Tobacco type: cigarettes Alcohol intake: never Substance use: never Substance use type: does not use Do You Feel Safe in your Home?: Yes Lack of Transportation: No Lack of Food: Never True Current Housing: I Have Housing Concerned About Future Housing: No Difficulty Paying Gas/Electric Bills: No Difficulty Paying for Meds: No Currently Unemployed: No Education: High School Diploma/GED Difficulty w/ Childcare or Family Care: No Living arrangements: with family Occupation/Education: other 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 Gender identity (if verbalized by the patient): Female Sexual Orientation (if Verbalized by the Patient): Straight or Heterosexual Spiritual care concerns: No Meds Home Medications and Allergies Home Medications ?Medication ?Instructions ?Recorded ?Confirmed ?Type omeprazole 40 mg capsule,delayed 40 mg PO DAILY 04/14/23 03/12/24 History release folic acid 1 mg tablet 1 mg PO DAILY 03/05/24 03/12/24 History Allergies Allergy/AdvReac Type Severity Reaction Status Date / Time No Known Allergies Allergy Verified 03/12/24 09:21 Vital Signs Vital Signs - 24 hr 03/12/24 09:11 Temperature 97.2 F L Pulse Rate 73 Respiratory Rate 18 Blood Pressure 90/56 L Pulse Oximetry 100 Oxygen Delivery Room Air Exam Const: General: cooperative, healthy appearing, comfortable and no acute distress Orientation/consciousness: oriented to person, oriented to place and oriented to time HENMT: Head: normal to inspection Ears: external ears normal Face/Nose/Sinus: Normal external nose present and normal facial exam Face and sinus: normal facial exam Eyes: General: appearance normal, both eyes and all related structures Neck: Neck: normal visual inspection, trachea midline and supple Resp: Auscultation: clear to auscultation bilaterally, no crackles, no rales, no rhonchi and no wheezes Cardio: Rate: regular rate Rhythm: regular rhythm Heart sounds: no click, no murmurs and no rubs GI: GI Palp: No abdominal tenderness, No Soft to palpation, No Tenderness to palpation present (GI) and No Palpable mass present Auscultation: normal bowel sounds Skin: General skin exam: normal color and no rashes or lesions noted Neuro: General: oriented to person, oriented to place and oriented to time Extrem: General: normal to inspection, no joint enlargement, no clubbing, cyanosis or edema, no pedal edema and no calf tenderness Psych: Appearance: grossly normal Mental Status: mental status grossly normal Speech and movement: Normal speech and movement present Assessment and Plan Assessment and plan (1) Ovarian cyst: Code(s): N83.209 - Unspecified ovarian cyst, unspecified side Status: Acute (2) Pelvic pain: Code(s): R10.2 - Pelvic and perineal pain Status: Acute (3) Unwanted fertility: Code(s): Z30.09 - Encounter for other general counseling and advice on contraception Status: Acute Plan This patient is a 38-year-old female with right ovarian cyst unwanted fertility. We have agreed to perform laparoscopic right oophorectomy and bilateral salpingectomy with IUD removal. She understands risks, benefits, and alternatives. She has completed the informed consent process is ready to proceed.
--- NOTE | 2024-03-12 10:14 | WPDHPUPDATE1 ---
History and Physical Update Update Date/Time: 03/12/24 10:14 History and Physical has been reviewed, including an updated exam of the patient. There are NO changes in the patient's condition. Risks, benefits, and alternatives have been discussed and questions answered. Patient agrees to proceed with procedure.
[2024-03-12] MEDS: SCOPOLAMINE 1 MG PATCH 1 PATCH TRANSDERM (10:35)
--- NOTE | 2024-03-12 11:33 | W.PM.PROC2 ---
Procedure Note - Detailed Date of Procedure 03/12/24 Pre-op Diagnosis cyst of right ovary, pelvic pain, unwanted fertility Post-op Diagnosis Same Procedure Performed Laparoscopic bilateral salpingectomy with right oophorectomy, IUD removal Surgeon Lexx Barry MD Anesthesia General Indications Unwanted fertility Findings Right ovarian cyst, otherwise, Normal pelvic anatomy Description of Procedure The patient was taken the operating room. She was prepped and draped in the dorsal lithotomy position after induction of general anesthesia. A 5 mm skin incision was made in the left upper quadrant of the abdominal skin. A 5 mm trocar was inserted the intra-abdominal cavity under direct visualization of the scope. Pneumoperitoneum was achieved. A 11 mm trocar was inserted in the left lower quadrant identical fashion. A 5 mm infraumbilical trocar was inserted in identical fashion as well. The bilateral fallopian tubes were removed. This was done by using a LigaSure cautery. The mesosalpinx adjacent to the tube was cauterized transected with LigaSure. This was initiated in the area the ovary and in a stepwise fashion moved medially to the area of the cornu of the uterus. Once there the fallopian tube was cauterized and transected. This was done in identical fashion on each side. The right ovary was removed by a cauterized infundibulopelvic ligament and a suspensory ligament of the ovary pain. the paraovrian tissue was cauterized, transected in a stepwise fashion. The ovary and the fallopian tubes were placed in an endobag and were taken out through the left lower quadrant trocar site. The pneumoperitoneum was reduced. The trocars removed. The skin was closed with subcuticular 4 Monocryl and covered with Dermabond. She was taken to cover stable condition. Sponge lap and needle counts were correct x2. IUD was removed using a speculum and a ring forceps. Estimated Blood Loss 5 Drains No Packing No Pathology Yes Complications No immediate complications Condition Stable Disposition PACU
[2024-03-12] MEDS: fentaNYL CITRATE INJ (*CRX) 100 MCG/2 ML VIAL 25 MCG IV PUSH ×7 (11:55→13:04)
[2024-03-12] MEDS: oxyCODONE HCL (*CRX) 5 MG TAB IR PO ×2 (12:45→14:14)
[2024-03-12] MEDS: ONDANSETRON INJ 4 MG/2 ML VIAL IV PUSH (13:39)
--- OUTSIDE RECORDS SUMMARY | 2024-03-19 00:49 | XMS_ITS | Data Portability ---
Author Organization [facility] [place] Address [address] [place] [address] Care Team Providers Care Database Report Writer Name Role Phone GREGORY AYOUB Primary Care Provider Assessment Encounter Date Assessment Date Assessment LastModified by Organization Details LastModified Time 02/23/2024 02/23/2024 Annual gynecological exam performed. Patient will come back in a year unless there are new symptoms. [email or web address] Not available 02/23/2024 11:35:36 Plan of Treatment Reminders Order Date Submit Date Provider Last Modified By Organization Details Last Modified Time Details Appointments SURG POST OP 2024 11:15A Christel BARRY MD Not available Not available Not available Lab CBC w/ auto diff [address] (Lab), [address] [place], [address], 09/30/2023 11:39:44 CMP, serum or plasma [address] (Lab), [address] [place], [address], 09/30/2023 11:39:44 lipid panel, blood [address] (Lab), [address] [place], [address], 09/30/2023 11:39:45 TSH, serum or plasma [address] (Lab), [address] [place], [address], 09/30/2023 11:39:45 25-hydrox yvitamin D2 + 25-hydrox yvitamin D3, QN, serum or plasma [address] (Lab), [address], [place], [address], 09/30/2023 11:39:45 ova1, serum [address] (Lab), [address], [place], [address], 09/30/2023 11:39:45 ova1, serum 2023 024 [facility] (Lab), [address] [facility], [place], [address], 02/24/2024 10:48:39 Referral None recorded. Procedures None recorded. Surgeries salpingec jose enrique, laparosco pic (SURG) [address], [facility], [address], 03/15/2024 09:24:01 oophorect shan (SURG) 2023 024 [facility], [address], [address], 03/12/2024 12:42:57 Imaging US, transvagi nal [address], [address], [address], [place], [address], 08/05/2023 20:58:23 US, transvagi nal [address], [address], [place], [address], 02/17/2024 21:47:15 Medication Orders None recorded. Patient TargetsNo targets recorded. Patient InstructionsNo instructions recorded. Reason for Referral None Reported. Results Created Date Observation Date Name Description Value Unit Range Abnormal Flag Note LastModifiedBy Organization Detail LastModifiedTime 02/19/20 24 02/19/2024 OVA 1 scan result See Scanne d Result Not Available [facility] (Lab) [address], [place], [address], 02/24/2024 10:48:39 02/23/20 24 02/23/2024 IMAGE GUIDE D PAP AND HPV REGAR DLESS image guided Pap, HPV regardless of Pap result SEE RESULT S BELOW CASE REPOR T: Cytol ogy Gynec ologi daisy Repor t Case: [id number] Autho annette g Provi janeth: Husam Barry MD Colle cted: 02/22 1324 Order ing Locat ion: [place] Patho logy Recei milka: 02/23 0236 First Scree n: Radha Agarwal ret, CT Speci men: Scree bowen Pap - Image d, Cervi x STATE MENT OF ADEQU ACY: Satis facto ry for evalu ation Trans forma tion zone compo nent prese nt Parti ally obscu ring infla mmati on prese nt. ----- ----- ----- ----- ----- ----- ----- ----- ----- ----- ----- ----- ----- ----- ----- ----- ----- ---- FINAL DIAGN OSIS: Negat clif for Intra epith elial Lesio n or Isael garcia (NIL) . Shift in melissa sugge stive of bacte rial vagin osis. Elect marilynn haji tiffanie d by ANN MARIE Ramirez ret on 03/02 at 1619 MANAGER HYDRAULIC ----- ----- ----- ----- ----- ----- ----- ----- ----- ----- ----- ----- ----- ----- ----- ----- ----- ---- HPV RESUL TS: HPV mRNA E6/E7 : No HPV mRNA Detec chago NOTE: This high risk HPV mRNA assay detec ts fourt een high- risk HPV types (16, 18, 31, 33, 35, 39, 45, 51, 52, 56, 58, 59, 66, 68) witho ut diffe renti ation . COMME NT: This speci men was revie wed by a Cytot echno logis t and/o r Patho logis t (as indic ated in this repor t) after evalu ation using the Thinp rep Imagi ng Syste m. CLINI DAISY INFOR MATIO N: Menst rual Statu s: LMP (if appli cable ): Clini daisy Histo ry/Pr eviou s Pap: Type of Neopl abdirahman (if appli cable ): Signi fican t Clini daisy Findi ngs: Other Histo ry: Hormo candice (if appli cable ): PAP EDUCA RIZWANA L NOTE: The Pap Test is a scree bowen test with an inher ent false negat clif rate. Liqui d-bas ed sampl ing may decre ase, but will not elimi benjamin, false negat clif resul ts. A negat clif resul t does not precl ude the prese nce and/o r devel opmen t of disea se, since the prese nce of abnor mal cells in the sampl e depen ds on the locat ion of the lesio n and sampl ing techn ique. Tere nued regul ar scree bowen is the best metho d of cance r preve ntion . If repor chago cytol ogic findi ng do not corre late with physi daisy and/o r histo rical findi ngs, furth er inves tigat ion is recom elvia d, as carlitoi bryn peters nted. Not Available [facility] (Lab) [address], [place], [address], 03/02/2024 17:25:16 08/05/19 24 08/05/2023 US, trans vagin al No observ ation record ed. [email or web address] [place] [address], [place], [address], 08/05/2023 13:06:07 08/05/19 24 08/05/2023 US, trans vagin al No observ ation record ed. [email or web address] [address], [place], [address], 08/05/2023 21:41:45 02/17/20 24 02/17/2024 US, trans vagin al No observ ation record ed. [email or web address] [place] [address], [place], [address], 02/17/2024 18:19:16 02/17/20 24 02/17/2024 US, trans vagin al No observ ation record ed. [email or web address] [address], [place], [address], 02/18/2024 15:04:30 Result Notes None recorded. Problems Name Problem SNOMED Code Status Onset Date Resolution Date Notes Provider Name and Address Organization Details Recorded Time Disorder of labor / delivery Completed 201607/17/2020 Twin pregnanc y, dichorio heather/diam niotic, first trimeste r;Practi ce ID: 0001 Hanna Zenia carr [facility] 15:04:09 Antenata l screenin g Completed 201607/17/2020 Encounte r for antenata l screenin g for nuchal transluc ency;Pra ctice ID: 0001 Hanna carr [facility] 15:03:40 Gestatio n period, 13 weeks [id number] Completed 201607/17/2020 13 weeks gestatio n of pregnanc y;Practi ce ID: 0001 Hanna carr [facility] 15:05:01 Normal pregnanc y in multigra kamari [id number] Completed 201607/17/2020 Encounte r for suprvsn of normal pregnanc y, second trimeste r;Practi ce ID: 0001 Hanna carr, [facility] 15:16:28 Spotting per vagina in pregnanc y [id number] Completed 201607/17/2020 Spotting complica ting pregnanc y, second trimeste r;Practi ce ID: 0001 Hanna carr, [facility] 15:21:34 Gestatio n period, 17 weeks [id number] Completed 201607/17/2020 17 weeks gestatio n of pregnanc y;P[facility]i ce ID: 0001 [facility] 15:05:03 Disorder of labor / delivery Completed 201607/17/2020 Twin pregnanc y, dichorio heather/diam niotic, second trimeste r;Practi ce ID: 0001 Hanna carr, [facility] 15:04:12 Antenata l screenin g for malforma tion Completed 201607/17/2020 Encounte r for antenata l screenin g for malforma tions;Pr actice ID: 0001 Hanna carr [facility] 15:03:43 Gestatio n period, 19 weeks [id number] Completed 201607/17/2020 19 weeks gestatio n of pregnanc y;Practi ce ID: 0001 Hanna carr [facility] 15:05:05 Prematur e labor [id number] Completed 201707/17/2020 labor without delivery , second trimeste r;Practi ce ID: 0001 Hanna carr [facility] 15:17:06 Gestatio n period, 22 weeks [id number] Completed 201707/17/2020 22 weeks gestatio n of pregnanc y;Practi ce ID: 0001 Hanna carr, [facility] 15:14:39 Complica tion of pregnanc y, childbir th and/or puerperi [id number] Completed 201707/17/2020 Oth diseases and conditio ns compl preg/chl dbrth;Pr actice ID: 0001 Hanna carr, [facility] 15:21:44 Gestatio n period, 23 weeks [id number] Completed 201707/17/2020 23 weeks gestatio n of pregnanc y;Practi ce ID: 0001 Hanna carr, [facility] 15:05:[address] Concept Completed 201707/17/2020 Decrease d movement s, second trimeste r, unsp;Pra ctice ID: 0001 Hanna carr, [facility] 15:17:23 Clinical finding Completed 201707/17/2020 Pain in right leg;Prac batsheva ID: 0001 Hanna carr, [facility] 15:04:43 Clinical finding Completed 201707/17/2020 Pain in left leg;Prac batsheva ID: 0001 Hanna carr, [facility] 15:04:45 Gestatio n period, 28 weeks [id number] Completed 201707/17/2020 28 weeks gestatio n of pregnanc y;Practi ce ID: 0001 Hanna carr, [facility] 15:14:41 Disorder of labor / delivery Completed 02/12/ 2018 07/17/2020 Twin pregnanc y, dichorio heather/diam niotic, third trimeste r;Practi ce ID: 0001 Hanna carr, [facility] 15:04:14 Pelvic and perineal pain [id number] Completed 201707/17/2020 Pelvic and perineal pain;Pra ctice ID: 0001 Hanna carr, [facility] 15:16:[address] Concept Completed 201707/17/2020 Decrease d movement s, third trimeste r, fetus 1;Practi ce ID: 0001 Hanna carr, [facility] 15:17:[address] Concept Completed 201707/17/2020 Decrease d movement s, third trimeste r, fetus 2;Practi ce ID: 0001 Hanna carr, [facility] 15:17:27 Gestatio n period, 31 weeks [id number] Completed 201707/17/2020 31 weeks gestatio n of pregnanc y;Practi ce ID: 0001 Hanna carr, [facility] 15:14:43 finding Completed 201707/17/2020 Matern care for oth or susp poor fetl grth, third tri, unsp;Pra ctice ID: 0001 Hanna carr, [facility] 15:04:41 Gestatio n period, 32 weeks [id number] Completed 201707/17/2020 32 weeks gestatio n of pregnanc y;Practi ce ID: 0001 Hanna carr, [facility] 15:14:45 Gestatio n period, 33 weeks [id number] Completed 201707/17/2020 33 weeks gestatio n of pregnanc y;Practi ce ID: 0001 [facility] 15:14:47 Oligohyd ramnios Completed 201707/17/2020 Oligohyd ramnios, third trimeste r, not applicab le or unsp;Pra ctice ID: 0001 [facility] 15:04:50 Urinary tract infectio us disease [id number] Completed 201707/17/2020 Urinary tract infectio n, site not specifie d;Practi ce ID: 0001 [facility] 15:21:46 Lochia finding Completed 201707/17/2020 Encounte r for routine postpart um follow-u p;Practi ce ID: 0001 [facility] 15:16:15 Subacute and chronic vaginiti s [id number] Completed 201707/17/2020 Subacute and chronic vaginiti s;Practi ce ID: 0001 [facility] 15:21:36 Pain Completed 201707/17/2020 Upper abdomina l pain, unspecif ied;Prac batsheva ID: 0001 [facility] 15:16:30 Imaging of abdomen abnormal [id number] Completed 201707/17/2020 Abn findings on dx imaging of abd regions, inc retroper iton;Pra ctice ID: 0001 [facility] 15:16:05 Genetic predispo sition 74155687 Completed 201707/17/2020 Genetic suscepti bility to malignan t neoplasm of ovary;Pr actice ID: 0001 [facility] 15:04:59 Family history of malignan t neoplasm of ovary 106186002 Completed 201707/17/2020 Family history of malignan t neoplasm of ovary;Pr actice ID: 0001 Hanna carr [facility] 15:05:23 Foreign body in cervix 211268009 Completed 201707/17/2020 Foreign body in uterus, initial encounte r;Practi ce ID: 0001 Hanna carr [facility] 15:04:57 Insertio n of intraute rine contrace ptive device Completed 201707/17/2020 Encounte r for insertio n of intraute rine contrace ptive device;P ractice ID: 0001 [facility] 15:16:10 Pregnanc y test negative [id number] Completed 201707/17/2020 Encounte r for pregnanc y test, result negative ;Practic e ID: 0001 Hanna carr [facility] 15:17:03 Acute vaginiti s [id number] Completed 201707/17/2020 Acute vaginiti s;Practi ce ID: 0001 [facility]:03:[address] Concept Completed 201707/17/2020 Encntr for customer acquisition specialist exam (general ) (routine ) w/o abn findings ;Practic e ID: 0001 Hanna carr [facility] 15:17:30 Mass of right breast [id number] Completed 201807/17/2020 Unspecif ied lump in the right breast, unspecif ied quadrant ;Practic e ID: 0001 Hanna carr [facility] 15:16:18 Lesion of ovary Completed 201807/17/2020 Other ovarian cyst, right side;Pra ctice ID: 0001 Hanna carr [facility] 1 15:04:07 Cyst of ovary Completed 201807/17/2020 Unspecif ied ovarian cyst, unspecif ied side;Pra ctice ID: 0001 Hanna carr [facility] 1 15:03:50 Family planning surveill ance Completed 201107/17/2020 Contrace ptive surveill ance, unspecif ied;Chace rded Elsewher e: No Locat ion: [facility] S ource: EHR Photography Instructor heather: N Practi ce ID: 0001 Melchor lable Time: 02:00:00 PM Hanna carr [facility] 15:04:33 Clinical finding Completed 201707/17/2020 Presence of (intraut erine) contrace ptive device;R ecorded Elsewher e: No Locat ion: [facility] ource: EHR Photography Instructor heather: N Practi ce ID: 0001 Melchor lable Time: 02:00:00 PM Hanna carr [facility] 15:03:48 Removal of intraute rine device Completed 201507/17/2020 Encounte r for removal of intraute rine contrace ptive device;R ecorded Elsewher e: No Locat ion: [facility] S ource: EHR Photography Instructor heather: N Practi ce ID: 0001 Melchor lable Time: 05:00:00 PM Hanna Knutson [facility] 1 15:17:09 Uses IUD (intraut erine device) contrace ption [id number] Completed 201407/17/2020 IUD check;Re corded Elsewher e: No Locat ion: [facility] ource: EHR Photography Instructor heather: N Practi ce ID: 0001 Melchor lable Time: 01:45:[address] [facility] 1 15:16:13 Breast lump [id number] Completed 201607/17/2020 Unspecif ied lump in breast;R ecorded Elsewher e: No Locat ion: [facility] ource: EHR Photography Instructor heather: N Leonti ce ID: 0001 Melchor lable Time: 09:30:00 AM Hanna Knutson [facility] 1 15:03:45 Speciali zed medical examinat ion Completed 201407/17/2020 Well woman check;Re corded Elsewher e: No Locat ion: [facility] S ource: EHR Photography Instructor heather: N Leonti ce ID: 0001 Melchor lable Time: 01:45:00 PM Hannaeliza Knutson [facility] 15:21:31 Infectio n screenin g Completed 201707/17/2020 Encounte r for screenin g for oth infec/pa rastc diseases ;Recorde d Elsewher e: No Locat ion: [facility] ource: EHR Photography Instructor heather: N Leonti ce ID: 0001 Melchor lable Time: 03:15:00 PM Hanna Knutson [facility] 1 15:16:08 Screenin g for malignan t neoplasm of cervix Completed 201707/17/2020 Encounte r for screenin g for malignan t neoplasm of cervix;R ecorded Elsewher e: No Locat ion: [facility] ource: EHR Photography Instructor heather: N Leonti ce ID: 0001 Melchor lable Time: 03:15:00 PM Hanna Knutson [facility] 15:17:18 Depressi ve disorder [id number] Completed 201107/17/2020 Depressi on;Recor ded Elsewher e: No Locat ion: [facility] ource: EHR Photography Instructor heather: N Practi ce ID: 0001 Melchor lable Time: 02:00:00 PM Hanna carr [facility] 15:04:02 Syphilis test finding [id number] Completed 201607/17/2020 Encntr screen for infectio ns w sexl mode of transmis s;Record ed Elsewher e: No Locat ion: [facility] S ource: EHR Photography Instructor heather: N Practi ce ID: 0001 Melchor lable Time: 03:00:00 PM Hanna carr [facility] 15:21:38 Routine antenata l care Completed 201007/17/2020 Supervis ion of other normal pregnanc y;Practi ce ID: 0001 Hanna carr [facility] 15:17:16 Excessiv e growth affectin g manageme nt of mother [id number] Completed 201007/17/2020 GROWTH LARGE LGA;Prac batsheva ID: 0001 Hanna carr [facility] 15:04:25 Poor growth affectin g manageme nt 154804569 Completed 201007/17/2020 GROWTH POOR SGA;Prac batsheva ID: 0001 Hanna carr [facility] 15:16:55 Delivery normal [id number] Completed 201007/17/2020 Normal delivery ;Practic e ID: 0001 Hanna carr [facility] 15:04:00 Single live 938203145 Completed 201007/17/2020 Mother with single liveborn ;Practic e ID: 0001 Hanna carr [facility] 15:17:21 Postpart um care Completed 201007/17/2020 Routine postpart um follow-u p;Practi ce ID: 0001 Hanna carr [facility] 15:16:58 Ill-defi reece intestin al infectio n Completed 201007/17/2020 No Show Fee;Prac batsheva ID: 0001 Hanna carr, [facility] 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 15:16:25 Vaginiti s and vulvovag initis Completed 201107/17/2020 Vaginiti s and vulvovag initis, unspecif ied;Prac batsheva ID: 0001 [facility] 15:21:48 Nausea and vomiting 90590173 Completed 201607/17/2020 Nausea with vomiting , unspecif ied;Chace rded Elsewher e: No Locat ion: [facility] S ource: EHR Photography Instructor heather: N Practi ce ID: 0001 Melchor lable Time: 03:00:00 PM Hanna carr [facility] 15:16:22 Evaluati on finding Completed 201607/17/2020 Hematuri a, unspecif ied;Chace rded Elsewher e: No Locat ion: [facility] S ource: EHR Photography Instructor heather: N Practi ce ID: 0001 Melchor lable Time: 09:30:00 AM Hannaeliza carr [facility] 15:04:16 Disorder of breast 77153723 Completed 201807/17/2020 Disorder of breast, unspecif ied;Chace rded Elsewher e: No Locat ion: [facility] ource: EHR Photography Instructor heather: N Practi ce ID: 0001 Melchor lable Time: 10:30:00 AM Hanna carr [facility] 1 15:04:05 Threaten ed miscarri age 71422291 Completed 201607/17/2020 Threaten ed ;Recorde d Elsewher e: No [facility] EHR Photography Instructor heather: Lola Brito ce ID: 0001 Melchor lable Time: 05:00:00 PM Hanna carr [facility] 1 15:21:40 Vaginola bial hernia Completed 201707/17/2020 Other specifie d noninfla mmatory disorder s of vagina;R ecorded Elsewher e: No Locat ion: [facility] ource: EHR Photography Instructor heather: Lola Brito ce ID: 0001 Melchor lable Time: 10:15:00 AM Hanna Knutson [facility] 1 15:21:51 Malaise and fatigue [id number] Completed 201207/17/2020 Fatigue / Malaise; Recorded Elsewher e: No Locat ion: [facility] S ource: EHR Photography Instructor heather: Lola Brito ce ID: 0001 Melchor lable Time: 05:00:00 PM Hannaeliza Knutson [facility] 1 15:16:20 Finding of defecati on Completed 201607/17/2020 Constipa tion;Rec orded Elsewher e: No Locat ion: [facility] S ource: EHR Photography Instructor heather: Lola Brito ce ID: 0001 Melchor lable Time: 03:00:00 PM Hanna Knutson [facility] 15:04:48 Abdomina l pain [id number] Completed 201107/17/2020 Abdomina l pain, other specifie d site;Rec orded Elsewher e: No Locat ion: [facility] ource: EHR Photography Instructor heather: N Practi ce ID: 0001 Melchor lable Time: 11:15:00 AM Hanna carr [facility] 15:03:32 Exposure to sexually transmis sible disorder Completed 201807/17/2020 Exposure to infectio n with a predomin antly sexual mode of transmis shyann;Rec orded Elsewher e: No Locat ion: [facility] N Leonti ce ID: 0001 Melchor lable Time: 01:45:00 PM Hanna carr [facility] 15:04:28 Finding of trunk structur e 293371184 Completed 201107/17/2020 Abdomina l or pelvic swelling , mass, or lump, other specifie d site;Rec orded Elsewher e: No Locat ion: [facility]: N Leonti ce ID: 0001 Melchor lable Time: 08:30:00 AM Hanna Knutson [facility] 15:04:54 Female genital organ symptoms [id number] Completed 201207/17/2020 Unspecif ied symptom associat ed with female genital organs;R ecorded Elsewher e: No Locat ion: [facility] N Daryl ce ID: [id number] Melchor lable Time: 01:45:00 PM Hanna Knutson [facility] 15:04:38 Pregnanc y detectio n examinat ion Completed 201607/17/2020 Encounte r for pregnanc y test, result positive ;Recorde d Elsewher e: No Locat ion: [facility] N Leonti ce ID: [id number] Melchor lable Time: 03:00:00 PM Hanna [facility] 15:17:01 Gestatio n period, 9 weeks [id number] Completed 201607/17/2020 9 weeks gestatio n of pregnanc y;Record ed Elsewher e: No Locat ion: [facility] S ource: [employer] heather: N Leonti ce ID: [id number] Melchor lable Time: 10:00:00 AM Hanna carr [facility] 1 15:14:49 Retained placenta , without hemorrha ge [id number] Completed 201707/17/2020 Retained placenta w/o hemorrha ge;Recor ded Elsewher e: No Locat ion: [facility] S ource: EHR Photography Instructor heather: N Leonti ce ID: 0001 Melchor lable Time: 01:30:00 PM Hanna carr [facility] 1 15:17:13 Amenorrh ea [id number] Completed 201607/17/2020 Amenorrh ea, unspecif ied;Chace rded Elsewher e: No Locat ion: [facility] S ource: EHR Photography Instructor heather: N Leonti ce ID: 0001 Melchor lable Time: 03:00:00 PM Hanna carr [facility] 1 15:03:37 Delayed delivery of second twin, triplet etc Completed 201707/17/2020 Delayed delivery of other multiple gestatio n fetus;Re corded Elsewher e: No Locat ion: [facility] S ource: EHR Photography Instructor heather: N Leonti ce ID: 0001 Melchor lable Time: 10:00:00 AM Hanna carr [facility] 1 15:03:54 BRCA2 gene mutation detected [id number] Active 2022 Lexx Barry MD [address], [place], [address], [place] [facility] 3 16:17:40 Problem Notes None recorded. Procedures Surgical History Date Name Laterality Status Provider Name and Address Organization Details Recorded Time 12/27/20 24 OOPHORECTOMY (SURG) completed Leeanna Huynh [facility] 03/12/2024 12:57:26 01/16/20 24 Date of Last Mammogram completed Shelley Haque [facility] 02/23/2024 11:41:42 09/27/19 23 Date of Last Pap Smear completed Ivon Hernandez [facility] 08/08/2023 12:29:58 08/16/19 22 procedure on back completed [facility] 09/24/2021 12:35:12 Dilation and Curettage completed [facility] 11/03/2019 10:27:24 Hysteroscopy completed [facility] 11/03/2019 10:27:38 Imaging Results Imaging Date Name Status LastModified by Organization Details LastModified Time 08/05/2023 US, transvaginal completed [email or web address] [place] [address], [place], [address], 08/05/2023 13:06:07 08/05/2023 US, transvaginal completed [email or web address] [address], [place], [address], 08/05/2023 21:41:45 02/17/2024 US, transvaginal completed [email or web address] [place] [address], [place], [address], 02/17/2024 18:19:16 02/17/2024 US, transvaginal completed [email or web address] [address], [place], [address], 02/18/2024 15:04:30 Procedure Notes None recorded. Medical Equipment None Reported. Allergies No known drug allergies Medications Name Sig Start Date Stop Date Status Note LastModified by Organization Details LastModified Time Mirena 21 mcg/24 hr (up to 8 years) 52 mg intrauter ine device Take by intraute rine route. active Not Available Not Available No t Available buspirone 5 mg tablet take 1 tablet by oral route 2 times every day 05/04 completed Prescrib ed Elsewher e: No Locat ion: [facility] odify By: [email or web address] Yessica kirby DateTime : 05/07/19 10:30:00 AM Not Available Not Available Not Available doxycycli ne hyclate 100 mg capsule TAKE 1 CAPSULE BY MOUTH TWICE DAILY 09/05 completed Not Available Not Available Not Available azithromy india 250 mg tablet take 2 tablet (500MG) by oral route every day for 1 day then 1 tablet (250 mg) by oral route once daily for 4 days 02/18 completed Not Available Not Available Not Available ibuprofen 800 mg tablet Take 1 tablet 3 times a day by oral route. 2023 active Not Available Not Available Not Avai lable fluconazo le 150 mg tablet TAKE 1 TABLET BY MOUTH 1 TIME NEEDED 09/05 completed Not Available Not Available Not Available hydrocodo ne 5 mg-acetam inophen 325 mg tablet TAKE 1 TABLET BY MOUTH EVERY 6 HOURS NEEDED FOR PAIN 10/14 completed Not Available Not Available Not Available tretinoin 0.025 % topical cream APPLY PEA SIZED AMOUNT TOPICALL Y TO FACE AT NIGHT TOLERATE D 02/18 completed Not Available Not Available Not Available fluconazo le 200 mg tablet 09/24 completed Not Available Not Available Not Available meloxicam 15 mg tablet TAKE 1 TABLET BY MOUTH EVERY DAY 12/27 completed Not Available Not Available Not Available promethaz ine 12.5 mg tablet take 1 tablet by oral route 4 times every day before meals and at bedtime 07/02 completed Prescrib ed Elsewher e: No [facility] By: amkuhcandida garay DateTime : 12/18/19 17 10:00:00 AM Not Available Not Available Not Available metronida zole 0.75 % (37.5 mg/5 gram) vaginal gel INSERT 1 APPLICAT ORFUL VAGINALL Y EVERY NIGHT AT BEDTIME 09/24 completed Not Available Not Available Not Available prednison e 20 mg tablet TAKE 3 TABLETS BY MOUTH EVERY DAY 12/28 completed Not Available Not Available Not Available Compazine 10 mg tablet take 1 tablet by oral route every 8 hours 07/02 completed Prescrib ed Elsewher e: No Locat ion: [facility] odify By: amzev smalluntdiane DateTime : 11/30/19 17 03:00:00 PM Not Available Not Available Not Available spironola ctone 100 mg tablet TAKE 1 TABLET BY MOUTH EVERY DAY 02/18 completed Not Available Not Available Not Available topiramat e 25 mg tablet TAKE 1 TABLET BY MOUTH EVERY EVENING 09/24 completed Not Available Not Available Not Available ciproflox acin 500 mg tablet TAKE 1 TABLET BY MOUTH TWICE DAILY FOR 5 DAYS 09/24 completed Not Available Not Available Not Available sulfameth oxazole 800 mg-trimet hoprim 160 mg tablet TAKE 1 TABLET BY MOUTH TWICE DAILY FOR 7 DAYS 12/27 completed Not Available Not Available Not Available omeprazol e 40 mg capsule,d elayed release active Not Available Not Available Not Available Reglan 10 mg tablet take 1 tablet by oral route 4 times every day 30 minutes before meals and at bedtime 07/02 completed Prescrib ed Elsewher e: No Locat ion: [facility]i [facility] odify By: rita smalluntdiane DateTime : 12/13/19 17 04:20:18 PM Not Available Not Available Not Available Macrobid 100 mg capsule take 1 capsule by oral route every 12 hours with food, as directed 07/23 completed Prescrib ed Elsewher e: No [facility] By: amzev Goddard ncodiane DateTime : 06/24/19 18 04:12:42 PM Not Available Not Available Not Available oxycodone -acetamin ophen 5 mg-325 mg tablet 09/24 completed Not Available Not Available Not Available Zoloft 50 mg tablet take 1 tablet (50MG) by oral route every day 11/11 completed Prescrib ed Elsewher e: No Locat ion: [facility]ria rupesh [facility] odify By: amkuhcandida Goddard ncounter DateTime : 08/21/19 12 02:00:00 PM Not Available Not Available Not Available Flagyl 500 mg tablet take 1 tablet by oral route 2 times every day 06/24 completed Prescrib ed Elsewher e: No Locat ion: [facility] odify By: amkuhcandida Goddard ncounter DateTime : 05/30/19 18 02:30:00 PM Not Available Not Available Not Available benzonata te 100 mg capsule TAKE 1 CAPSULE BY MOUTH THREE TIMES DAILY 08/04 completed Not Available Not Available Not Available doxycycli ne monohydra te 100 mg capsule TAKE 1 CAPSULE BY MOUTH TWICE DAILY 09/05 completed Not Available Not Available Not Available cephalexi n 500 mg capsule TAKE 1 CAPSULE BY MOUTH EVERY 12 HOURS 09/26 completed Not Available Not Available Not Available nortripty line 10 mg capsule take 1 capsule by oral route 2 times every day 07/23 completed Prescrib ed Elsewher e: No Locat ion: [facility] odify By: amkuhcandida Goddard ncounter DateTime : 07/03/19 18 04:00:00 PM Not Available Not Available Not Available polymyxin B sulfate 10,000 unit-trim ethoprim 1 mg/mL eye drops INSTILL 1 DROP IN RIGHT EYE EVERY 3 HOURS FOR 7 DAYS WHILE AWAKE. DO NOT EXCEED 6 DOSES IN 24 HOURS 09/26 completed Not Available Not Available Not Available ibuprofen 200 mg tablet take 1 tablet by oral route every 6 hours as needed with food 12/27 completed Prescrib ed Elsewher e: Yes Loca tion: [facility] odify By: amkuhcandida Goddard ncounter DateTime : 07/03/19 18 04:00:00 PM Not Available Not Available Not Available omeprazol e 20 mg capsule,d elayed release TAKE 1 CAPSULE BY MOUTH EVERY DAY BEFORE A MEAL active Not Available Not Available No t Available Tylenol 325 mg tablet take 1 tablet by oral route every 4 hours as needed 02/18 completed Prescrib ed Elsewher e: Yes Loca tion: [facility] odify By: amksusanne Goddard ncounter DateTime : 07/03/19 04:00:00 PM Not Available Not Available Not Available diclofena c sodium 75 mg tablet,de layed release TAKE 1 TABLET BY MOUTH TWICE DAILY 09/24 completed Not Available Not Available Not Available folic acid 1 mg tablet TAKE 1 TABLET BY MOUTH DAILY active Not Available Not Available No t Available clindamyc in 2 % vaginal cream insert 1 applicat orful by vaginal route every day for 7 days at bedtime 05/17 completed Prescrib ed Elsewher e: No [facility] By: [email or web address] Encounte r DateTime : 05/11/19 11:15:00 AM Not Available Not Available Not Available Spiro 10 mg-325 mg tablet take 1 tablet by oral route every 4 - 6 hours as needed for pain 07/02 completed Prescrib ed Elsewher e: No Locat ion: [facility] odify By: amzev Goddard ncounter DateTime : 06/20/19 04:30:00 PM Not Available Not Available Not Available ergocalci ferol (vitamin D2) 1,250 mcg (50,000 unit) capsule TAKE 1 CAPSULE BY MOUTH EVERY WEEK active Not Available Not Available No t Available polyethyl summer glycol 3350 17 gram/dose oral powder active Not Available Not Available Not Available methylpre dnisolone 4 mg tablets in a dose pack FOLLOW PACKAGE DIRECTIO NS 12/27 completed Not Available Not Available Not Available albuterol sulfate HFA 90 mcg/actua tion aerosol inhaler INHALE 1 PUFF BY MOUTH EVERY 4 TO 6 HOURS NEEDED active Not Available Not Available No t Available doxycycli ne hyclate 100 mg tablet TAKE 1 TABLET BY MOUTH TWICE DAILY 02/18 completed Not Available Not Available Not Available clindamyc in 1 % lotion APPLY EXTERNAL LY TO THE AFFECTED AREA OF BODY ACNE TWICE DAILY WHEN PRESENT. 02/18 completed Not Available Not Available Not Available Vitamins and Minerals tablet 08/04 completed Prescrib ed Elsewher e: Yes Loca tion: [facility] odify By: [email or web address] Encounte r DateTime : 05/04/19 11:00:00 AM Not Available Not Available Not Available cyclobenz aprine 5 mg tablet TAKE 1 TABLET BY MOUTH THREE TIMES DAILY NEEDED FOR MUSCLE SPASM 09/26 completed Not Available Not Available Not Available Pepcid AC 20 mg tablet take 1 tablet (20MG) by oral route 2 times every day 11/11 completed Prescrib ed Elsewher e: No Locat ion: [facility] odify By: rita hennessyer DateTime : 09/04/19 12 08:30:00 AM Not Available Not Available Not Available mesalamin e 1,000 mg rectal supposito ry UNWRAP AND INSERT 1 SUPPOSIT ORY RECTALLY EVERY DAY AT BEDTIME 08/04 completed Not Available Not Available Not Available Tylenol 12/27 completed Not Available Not Available Not Available Doxycycli ne 09/26 completed Not Available Not Available Not Available cephalexi n 750 mg capsule take 1 capsule by oral route 2 times every day 07/02 completed Prescrib ed Elsewher e: No Locat ion: [facility] odify By: amzev smallunter DateTime : 05/16/19 18 10:45:00 AM Not Available Not Available Not Available Anusol-HC 2.5 % topical cream with perineal applicato r apply by topical route 2 times every day to the affected area(s) 07/23 completed Prescrib ed Elsewher e: No Locat ion: [facility] odify By: rita garay DateTime : 12/18/19 17 10:00:00 AM Not Available Not Available Not Available ID NOW COVID-19 Test Kit TEST DIRECTED 12/28 completed Not Available Not Available Not Available Vitals Date Recorded Body height Body mass index (BMI) Body weight Systolic blood pressure Diastolic blood pressure Provider Name and Address Organization Details Last Updated DateTime 08/09/2023 162.56 cm 30.4 kg/m2 51038.85 g 127 mm[Hg] 72 mm[Hg] Ivon Hernandez [facility] 12:25:12 Date Recorded Body height Body mass index (BMI) Body weight Systolic blood pressure Diastolic blood pressure Provider Name and Address Organization Details Last Updated DateTime 02/19/2024 162.56 cm 29.5 kg/m2 58544.89 g 98 mm[Hg] 66 mm[Hg] [facility] 4 14:47:19 Date Recorded Body height Body mass index (BMI) Body weight Systolic blood pressure Diastolic blood pressure Provider Name and Address Organization Details Last Updated DateTime 02/23/2024 162.56 cm 29.9 kg/m2 92360.07 g 106 mm[Hg] 74 mm[Hg] [facility] 4 11:39:08 Social History Question Answer Notes LastModified by Organizat ion Details LastModified Time Tobacco Smoking Status Current Every [facility] 09/26/2022 15:51:26 Do You Have An Advance Directive? No Information n ot available 12/28/2020 What Is Your Level Of Alcohol Consumption? None Information not available 12/28/2020 Are You Blind Or Do You Have Difficulty Seeing? No Information n ot available 12/27/2020 What Is Your Level Of Caffeine Consumption? Moderate Information not available 09/24/2021 How Much Tobacco Do You Chew? None Information not available 12/28/2020 In The 14 Days Before Symptom Onset, Have You Had Close Contact With A Laboratory-confirm ed COVID-19 While That Case Was Ill? No Information n ot available 09/24/2021 In The 14 Days Before Symptom Onset, Have You Had Close Contact With A Person Who Is Under Investigation For COVID-19 While That Person Was Ill? No Information not available 12/28/2020 Have You Been To An Area Known To Be High Risk For COVID-19? No Information not available 09/24/2021 Are You Deaf Or Do You Have Serious Difficulty Hearing? No Information not available 12/27/2020 What Type Of Diet Are You Following? REGULAR Information n ot available 12/27/2020 What Is The Highest Grade Or Level Of School You Have Completed Or The Highest Degree You Have Received? 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 No Information not available 12/28/2020 Do You Use Protection During Sex? No Information not available 12/28/2020 Do You Use Your Seat Belt Or Car Seat Routinely? Yes Information not available 12/27/2020 Do You Have Smoke And Carbon Monoxide Detectors In Your Home? Yes Information not available 12/27/2020 How Much Tobacco Do You Smoke? No Information not available 12/28/2020 Do You Feel Stressed (tense, Restless, Nervous, Or Anxious, Or Unable To Sleep At Night)? [id number] Information not available 12/27/2020 Do You Use Any Illicit Or Recreational Drugs? No Information not available 12/27/2020 Do You Use Sunscreen Routinely? Yes Information not available 12/08/2021 Have You Used IV Drugs? No Information not available 12/28/2020 Sex: Unknown Functional Status Question Answer Note LastModified by Organization D etails LastModified Time Are you able to walk? YESWOREST Information not available 12/27/2020 What is your exercise level? Moderate Information not available 12/27/2020 Mental Status None recorded. Family History Relationship Description Onset Age of this Age Resolved Age Notes LastModified by Organization Details LastModified Time Mother Anemia Not available 11/03/2019 10:19:02 Mother Asthma Not available 11/03/2019 10:19:12 Mother Malignant tumor of ovary Not available 2019 10:20:52 Brother Anemia Not available 11/03/2019 10:19:02 Maternal Grandmother Diabetes mellitus Not available 2019 10:20:07 Sister Cyst of ovary Not available 2023 12:34:34 Maternal Uncle Carcinoma of prostate [email or web address] Not available 2023 12:34:34 Maternal Uncle Malignant tumor of pancreas [email or web address] Not available 2023 12:34:34 Paternal Uncle Malignant lymphoma [email or web address] Not available 2023 12:34:34 Medical History Condition Response Other Y Acid Reflux (GERD) Y Anemia Y GI Problems Y Blood Transfusion Y Gynecological History Statement/Question Response Abnormal Pap N Date of Last Mammogram 01/16/2024 Date of LMP 06/12/2017 N Was last menstrual period normal N STIs/STDs N HPV Vaccine N Colposcopy Current Control Method IUD Age at First Child 22 Are cycles usually normal N Date of Last Colonoscopy Sexually Active? Y Menses Monthly N Date of DEXA bone scan Age of first menstrual cycle 13 Date of Last Pap Smear 09/26/2022 Sexual Problems? Y Desired Control Method IUD LMP Unknown N Obstetrics History GPAL:G 3 P 2 0 0 4 Type Value Multiple Births 1 Full Term 2 Living 4 Total 3 Past Encounters Encounter ID Performer Location Encounter Start Date Encounter Closed Date Diagnosis/Indication Diagnosis SNOMED-CT Code Diagnosis ICD10 Code [id number] Shanell Reyes [place] [address] [address] 12/27/2019 14:06:13 12/27/2019 16:36:24 Ovarian cancer genetic marker of susceptibility positive 5776164642 9100 Z15.02 Z80.41 [id number] Lexx Barry MD [place] [address] [address] 12/27/2019 14:07:07 12/27/2019 16:36:38 Cyst of ovary 39725962 N83.209 BRCA1 gene mutation detected 719631815 Z15.01 [id number] [facility] [address],[place] [address] 07/17/2020 14:07:42 07/17/2020 14:44:52 Family history of malignant neoplasm of ovary 196142744 Z80.41 [id number] Lexx Barry MD [place] [address],[place] [address] 07/17/2020 14:08:18 07/17/2020 15:28:24 Polycystic ovary syndrome 942489480 E28.2 Cyst of ovary 00352005 N 83.209 Venereal d isease screening 091098890 Z11.3 Sexually t ransmitted infectious disease 4898097 A64 [id number] Laura Mathews [facility] [address],[place] [address] 12/28/2020 09:58:34 12/28/2020 12:51:59 Urinary symptoms 699771232 R39.9 Vaginitis 31490997 N76.0 [id number] Betzy Lambert [place] [address] [address] 01/03/2021 14:02:25 01/03/2021 15:19:39 Family history of malignant neoplasm of ovary 195130582 Z80.41 [id number] Lexx Barry MD [place] [address] [address] 01/10/2021 17:37:09 01/11/2021 17:19:10 Venereal disease screening 455843814 Z11.3 Sexually t ransmitted infectious disease 6403947 A64 Cyst of ovary 32939192 N 83.209 [id number] Lakeisha Lange [place] [address] [place] [address] 08/23/2021 16:36:27 08/23/2021 17:29:24 Family history of malignant neoplasm of ovary 531206215 Z80.41 N83.292 [id number] Lexx Barry MD [place] [address] [address] 09/05/2021 16:59:31 09/05/2021 18:00:05 Cyst of ovary 73794927 N83.209 [id number] Lexx Barry MD [place] [address] [place] [address] 09/24/2021 12:09:02 09/24/2021 14:01:00 Gynecologic examination 70597793 Z01.419 BRCA1 gene mutation detected 870761271 Z15.01 [id number] Lexx Barry MD [place] [address] [address] 09/26/2022 15:51:14 09/26/2022 16:56:50 Gynecologic examination 47496975 Z01.419 Z11.51 [id number] [facility] [address] [address] 12/06/2021 16:51:54 12/06/2021 17:46:58 Cyst of right ovary 8115699626 6453334 N83.291 Z80.41 [id number] Lexx Barry MD [place] [address] [address] 12/08/2021 10:35:55 12/08/2021 11:27:14 Hidradenitis suppurativa 74075149 L73.2 Cyst of ovary 68402908 N 83.209 [id number] [facility] [address] [address] 03/04/2022 17:16:26 03/04/2022 18:23:47 Cyst of left ovary 2248965971 7955376 N83.292 Z80.41 [id number] Lexx Barry MD [place] [address] [address] 03/22/2022 15:47:35 03/22/2022 16:39:22 Cyst of ovary 52411285 N83.209 [id number] [facility] [address] [address] 06/19/2022 14:38:57 06/19/2022 15:25:33 Cyst of left ovary 4726908879 [id number] N83.292 Z80.41 [id number] Lexx Barry MD [place] [address],[place] [address] 06/28/2022 14:09:05 06/28/2022 14:44:28 Cyst of left ovary 7266796615 1888040 N83.292 Z80.41 Hirsutism 559432366 L68. 0 [id number] [facility] [address],[place] [address] 10/01/2022 12:40:53 10/01/2022 13:16:46 Family history of malignant neoplasm of ovary 036082320 Z80.41 Z15.01 [id number] Lexx Barry MD [place] [address] [address] 10/14/2022 14:27:43 10/14/2022 15:19:17 Cyst of ovary 57384247 N83.209 Anemia 505193232 D64.9 [id number] [facility] [address],[place] [address] 08/05/2023 12:34:22 08/05/2023 13:10:26 Family history of malignant neoplasm of ovary 527156713 Z80.41 [id number] MD Kourtney Mathias [address] [address] 08/09/2023 12:22:24 08/11/2023 08:23:26 Gynecologic examination 84588871 Z01.419 Family his tory of malignant neoplasm of ovary 270046413 Z80.41 [id number] [facility] [address] [address] 02/17/2024 17:32:13 02/17/2024 18:20:36 Family history of malignant neoplasm of ovary 518034684 Z80.41 [id number] Lexx Barry MD [place] [address],[place] [address] 02/19/2024 14:29:38 02/19/2024 15:39:07 Cyst of ovary 12632086 N83.209 [id number] Lexx Barry MD [place] [address] [place] [address] 02/23/2024 11:27:04 02/24/2024 09:48:52 Cyst of right ovary 3744096470 [id number] N83.291 Z80.41 Gynecologi c examination 74150198 Z01.419 Z11.51 Health Concerns Section Related Observation LastModified by Organization Detai ls LastModified Time None Recorded Concern Status LastModified by Organization Details LastModified Time None Recorded Advance Directives Directive N: Payers Encounter Date Sequence Insurance Name Policy Number Policy Serrano Covered Member ID Serrano Member ID Guarantor Name 08/05/2023 1 [place]: [facility] Tessy Changma [id number] Tessy Dany 08/09/2023 1 MED[place]ID[place]: [facility] Tessy Dany [id number] Tessy Dany 02/17/2024 1 [facility] ON OR AFTER 09/14/20 (MEDICAID REPLACEMENT - HMO) Tessycarrie hCangma [id number] Tessy Dany 02/19/2024 1 [facility] ON OR AFTER 09/14/20 (MEDICAID REPLACEMENT - HMO) Tessy Dany [id number] Tessy Dany 02/23/2024 1 [facility] DOS ON OR AFTER 20 (MEDICAID REPLACEMENT - HMO) Tessy Changma [id number] Tessy Dany Notes Date Note Type Note Provider Name and Address Organization Details Recorded Time 08/09/2023 text/html this patient is a 38-year-old female presents for follow-up on family history of malignant neoplasm Of the ovary. she has a pelvic ultrasound that is normal/ stable. She has a 1.8 cm paratubal cyst that is unchanged. Her ovaries appear normal. Her uterus appears normal with normally placed IUD. We reviewed these results together. Patient will repeat ovarian cancer tumor marker testing. To return for well-woman exam. Lexx Barry MD [address], [place], [address], [facility] 08/09/2023 12:59:52 02/19/2024 text/html 38-year-old fema le with an ovarian cyst. She is also BRCA1 positive. There are some septations in the cyst. There was no blood flow. We talked about options for managing the ovarian cyst. Talked about oophorectomy versus cystectomy versus observation. I spent over 20 minutes with the patient and on her care. In total we agreed to obtain OVA1 testing along with repeat ultrasound in 6 weeks and to discuss treatment options again at that time. Considering oophorectomy. Lexx Barry MD [address], [place], [address], [facility] 02/19/2024 15:25:38 02/23/2024 text/html Annual GYNReport ed bypatient.History: no gynecologic complaints Menstrual cycle:Normal menses Urinary symptoms:No hematuria Vulva:No genital lesion Vagina:Normal vaginal discharge Breast:No breast pain; No breast lump Current Contraception:Mil h control not practiced Sexual complaints:No sexual complaints Menopausal Symptoms:No menopausal symptoms; Normal vaginal lubrication Psychological symptoms:No depression; No anxiety Preventive measures:Encourage self breast examination; Encourage regular exercise Lexx Barry MD [address], [place], [id number], [facility] 02/23/2024 21:07:56 OBGyn Episode Ob Episode Information Episode Created Date Number of Fetuses Patient Bloodtype Patient rh Status Prepregnancy Weight lbs Domestic Partner Domestic Partner Phone Father Name Subacute Nurse Status 12/27/19 20 2 CLOSED Fetus Data First Name Last Name Admitted to NICU Weight (g) Sex Living Outcome Pediatric Complications Fetus ID Race Codes Race Delivery Type M [id number] Primary F [id number] Primary [place] Calculation [place] Calculation Method Initial [place] Date Initial Exam Date Initial Exam Provider Initial Ultrasound Date Last Menstrual Period Date Ultra Sound Weeks Gestation Conception by IVF Embryo Age at Transfer Date of Transfer 0 Eighteen To Twenty Week [place] Update Ultra Sound Date Fundal Height At Umbil Quickening Date Ultra Sound Latest Weeks Gestation Final [place] Confirmed By Final [place] Confirmed Date Final [place] Date Ultra Sound Latest Days Gestation 0 0 Menstrual History Last Menstrual Date Menses Monthly On Bcp Conception Prior Menses Frequency Hcg Plus Date Menarche Onset Age Delivery Information Delivery Date Delivery Type Labor Anesthesia Weeks Gestation Incision Type Labor Labor Length Hrs Delivered By Post Complications Tubal Sterilization Discharge Date Comments 8 Prateek twins, ulcerativ e colitus, TPTL Discharge Information Feeding Method Contraceptive Method Maternal HG B and HCT Levels Ob Episode Information Episode Created Date Number of Fetuses Patient Bloodtype Patient rh Status Prepregnancy Weight lbs Domestic Partner Domestic Partner Phone Father Name Subacute Nurse Status 12/27/19 20 1 CLOSED Fetus Data First Name Last Name Admitted to NICU Weight (g) Sex Living Outcome Pediatric Complications Fetus ID Race Codes Race Delivery Type [id number] M [id number] Vaginal Delivery [place] Calculation [place] Calculation Method Initial [place] Date Initial Exam Date Initial Exam Provider Initial Ultrasound Date Last Menstrual Period Date Ultra Sound Weeks Gestation Conception by IVF Embryo Age at Transfer Date of Transfer 0 Eighteen To Twenty Week [place] Update Ultra Sound Date Fundal Height At Umbil Quickening Date Ultra Sound Latest Weeks Gestation Final [place] Confirmed By Final [place] Confirmed Date Final [place] Date Ultra Sound Latest Days Gestation 0 0 Menstrual History Last Menstrual Date Menses Monthly On Bcp Conception Prior Menses Frequency Hcg Plus Date Menarche Onset Age Delivery Information Delivery Date Delivery Type Labor Anesthesia Weeks Gestation Incision Type Labor Labor Length Hrs Delivered By Post Complications Tubal Sterilization Discharge Date Comments 1 39 Discharge Information Feeding Method Contraceptive Method Maternal HG B and HCT Levels Ob Episode Information Episode Created Date Number of Fetuses Patient Bloodtype Patient rh Status Prepregnancy Weight lbs Domestic Partner Domestic Partner Phone Father Name Subacute Nurse Status 12/27/19 20 1 CLOSED Fetus Data First Name Last Name Admitted to NICU Weight (g) Sex Living Outcome Pediatric Complications Fetus ID Race Codes Race Delivery Type [id number] Vaginal Delivery [place] Calculation [place] Calculation Method Initial [place] Date Initial Exam Date Initial Exam Provider Initial Ultrasound Date Last Menstrual Period Date Ultra Sound Weeks Gestation Conception by IVF Embryo Age at Transfer Date of Transfer 0 Eighteen To Twenty Week [place] Update Ultra Sound Date Fundal Height At Umbil Quickening Date Ultra Sound Latest Weeks Gestation Final [place] Confirmed By Final [place] Confirmed Date Final [place] Date Ultra Sound Latest Days Gestation 0 0 Menstrual History Last Menstrual Date Menses Monthly On Bcp Conception Prior Menses Frequency Hcg Plus Date Menarche Onset Age Delivery Information Delivery Date Delivery Type Labor Anesthesia Weeks Gestation Incision Type Labor Labor Length Hrs Delivered By Post Complications Tubal Sterilization Discharge Date Comments 8 39 Discharge Information Feeding Method Contraceptive Method Maternal HG B and HCT Levels
--- OUTSIDE RECORDS SUMMARY | 2024-03-19 00:49 | XMS_ITS | Continuity of Care Document ---
Author Organization [facility] [place] Address [address] [place] [address] [place] [address] Care Team Providers Care Urology Surgeon Name Role Phone GREGORY AYOUB Primary Care Provider Assessment No assessment recorded. Plan of Treatment Reminders Order Date Submit Date Provider Last Modified By Organization Details Last Modified Time Details Appointments SURG POST OP 025 11:15AM Herminia BARRY MD Not available Not available Not available Lab ova1, serum 024 024 [facility] (Lab), [address], [place], [address], 02/24/2024 10:48:39 Referral None recorde d. Procedures None recorde d. Surgeries None recorde d. Imaging None recorde d. Medication Orders None recorde d. Patient TargetsNo targets recorded. Patient InstructionsNo instructions recorded. Reason for Referral None Reported. Results Created Date Observation Date Name Description Value Unit Range Abnormal Flag Note LastModifiedBy Organization Detail LastModifiedTime 02/17/2002/17/2024 , josé coello No observ ation record ed. [facility] [address], [place], [address], 02/17/2024 18:19:16 02/17/20 24 02/17/2024 , josé arias al No observ ation record ed. [email or web address] [address], [place], [address], 02/18/2024 15:04:30 Result Notes None recorded. Problems Name Problem SNOMED Code Status Onset Date Resolution Date Notes Provider Name and Address Organization Details Recorded Time Disorder of labor / delivery Completed 201607/17/2020 Twin pregnanc y, dichorio heather/diam niotic, first trimeste r;Practi ce ID: 0001 Hanna carr, [facility] 15:04:09 Antenata l screenin g Completed 201607/17/2020 Encounte r for antenata l screenin g for nuchal transluc ency;Pra ctice ID: 0001 Hanna carr, [facility] 15:03:40 Gestatio n period, 13 weeks [id number] Completed 201607/17/2020 13 weeks gestatio n of pregnanc y;Practi ce ID: 0001 [facility] 15:05:01 Normal pregnanc y in multigra kamari [id number] Completed 201607/17/2020 Encounte r for suprvsn of normal pregnanc y, second trimeste r;Practi ce ID: 0001 Hanna carr, [facility] 15:16:28 Spotting per vagina in pregnanc y [id number] Completed 201607/17/2020 Spotting complica ting pregnanc y, second trimeste r;Practi ce ID: 0001 Hanna carr, [facility] 15:21:34 Gestatio n period, 17 weeks [id number] Completed 201607/17/2020 17 weeks gestatio n of pregnanc y;Practi ce ID: 0001 Hanna carr, [facility] 15:05:03 Disorder of labor / delivery Completed 201607/17/2020 Twin pregnanc y, dichorio heather/diam niotic, second trimeste r;Practi ce ID: 0001 [facility] 15:04:12 Antenata l screenin g for malforma tion Completed 201607/17/2020 Encounte r for antenata l screenin g for malforma tions;Pr actice ID: 0001 Hanna carr [facility] 15:03:43 Gestatio n period, 19 weeks [id number] Completed 201607/17/2020 19 weeks gestatio n of pregnanc y;Practi ce ID: 0001 [facility] 15:05:05 Prematur e labor [id number] Completed 201707/17/2020 labor without delivery , second trimeste r;Practi ce ID: 0001 [facility] 15:17:06 Gestatio n period, 22 weeks [id number] Completed 201707/17/2020 22 weeks gestatio n of pregnanc y;Practi ce ID: 0001 [facility] 15:14:39 Complica tion of pregnanc y, childbir th and/or puerperi [id number] Completed 201707/17/2020 Oth diseases and conditio ns compl preg/chl dbrth;Pr actice ID: 0001 Hanna carr [facility] 15:21:44 Gestatio n period, 23 weeks [id number] Completed 201707/17/2020 23 weeks gestatio n of pregnanc y;Practi ce ID: 0001 Hanna carr [facility] 15:05:[address] Concept Completed 201707/17/2020 Decrease d movement s, second trimeste r, unsp;Pra ctice ID: 0001 Hanna carr, [facility] 15:17:23 Clinical finding Completed 201707/17/2020 Pain in right leg;Prac batsheva ID: 0001 Hanna carr, [facility] 15:04:43 Clinical finding Completed 201707/17/2020 Pain in left leg;Prac batsheva ID: 0001 Hanna carr, [facility] 15:04:45 Gestatio n period, 28 weeks [id number] Completed 201707/17/2020 28 weeks gestatio n of pregnanc y;Practi ce ID: 0001 Hanna carr, [facility] 15:14:41 Disorder of labor / delivery Completed 201707/17/2020 Twin pregnanc y, dichorio heather/diam niotic, third trimeste r;Practi ce ID: 0001 Hanna carr, [facility] 15:04:14 Pelvic and perineal pain [id number] Completed 201707/17/2020 Pelvic and perineal pain;Pra ctice ID: 0001 Hanna carr, [facility] 15:16:[address] Concept Completed 201707/17/2020 Decrease d movement s, third trimeste r, fetus 1;Practi ce ID: 0001 Hanna carr, [facility] 15:17:[address] Concept Completed 201707/17/2020 Decrease d movement s, third trimeste r, fetus 2;Practi ce ID: 0001 Hanna carr, [facility] 15:17:27 Gestatio n period, 31 weeks [id number] Completed 201707/17/2020 31 weeks gestatio n of pregnanc y;Practi ce ID: 0001 Hanna carr [facility] 15:14:43 finding Completed 201707/17/2020 Matern care for oth or susp poor fetl grth, third tri, unsp;Pra ctice ID: 0001 Hanna carr [facility] 15:04:41 Gestatio n period, 32 weeks [id number] Completed 201707/17/2020 32 weeks gestatio n of pregnanc y;Practi ce ID: 0001 Hanna Knutson [facility] 15:14:45 Gestatio n period, 33 weeks [id number] Completed 201707/17/2020 33 weeks gestatio n of pregnanc y;Practi ce ID: 0001 [facility] 15:14:47 Oligohyd ramnios Completed 201707/17/2020 Oligohyd ramnios, third trimeste r, not applicab le or unsp;Pra ctice ID: 0001 Hanna carr [facility] 15:04:50 Urinary tract infectio us disease [id number] Completed 201707/17/2020 Urinary tract infectio n, site not specifie d;Practi ce ID: 0001 Hanna carr [facility] 15:21:46 Lochia finding Completed 201707/17/2020 Encounte r for routine postpart um follow-u p;Practi ce ID: 0001 Hanna carr [facility] 15:16:15 Subacute and chronic vaginiti s [id number] Completed 201707/17/2020 Subacute and chronic vaginiti s;Practi ce ID: 0001 [facility] 15:21:36 Pain Completed 201707/17/2020 Upper abdomina l pain, unspecif ied;Prac batsheva ID: 0001 [facility] 15:16:30 Imaging of abdomen abnormal [id number] Completed 201707/17/2020 Abn findings on dx imaging of abd regions, inc retroper iton;Pra ctice ID: 0001 [facility] 15:16:05 Genetic predispo sition [id number] Completed 201707/17/2020 Genetic suscepti bility to malignan t neoplasm of ovary;Pr actice ID: 0001 [facility] 15:04:59 Family history of malignan t neoplasm of ovary 409822121 Completed 201707/17/2020 Family history of malignan t neoplasm of ovary;Pr actice ID: 0001 [facility] 15:05:23 Foreign body in cervix 409376571 Completed 201707/17/2020 Foreign body in uterus, initial encounte r;Practi ce ID: 0001 [facility] 15:04:57 Insertio n of intraute rine contrace ptive device Completed 201707/17/2020 Encounte r for insertio n of intraute rine contrace ptive device;P ractice ID: 0001 [facility] 15:16:10 Pregnanc y test negative [id number] Completed 201707/17/2020 Encounte r for pregnanc y test, result negative ;Practic e ID: 0001 [facility] 15:17:03 Acute vaginiti s 53967089 Completed 201707/17/2020 Acute vaginiti s;Practi ce ID: 0001 Hanna carr [facility] 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 15:17:30 Mass of right breast [id number] 5751861 Completed 201807/17/2020 Unspecif ied lump in the right breast, unspecif ied quadrant ;Practic e ID: 0001 Hanna carr [facility] 15:16:18 Lesion of ovary Completed 201807/17/2020 Other ovarian cyst, right side;Pra ctice ID: 0001 Hanna carr [facility] 15:04:07 Cyst of ovary Completed 201807/17/2020 Unspecif ied ovarian cyst, unspecif ied side;Pra ctice ID: 0001 Hanna carr [facility] 15:03:50 Family planning surveill ance Completed 201107/17/2020 Contrace ptive surveill ance, unspecif ied;Chace rded Elsewher e: No Locat ion: [facility] S ource: [employer] heather: N Practi ce ID: 0001 Melchor lable Time: 02:00:00 PM Hanna carr [facility] 15:04:33 Clinical finding Completed 201707/17/2020 Presence of (intraut erine) contrace ptive device;R ecorded Elsewher e: No Locat ion: [facility] S ource: [employer] heather: N Practi ce ID: 0001 Melchor lable Time: 02:00:00 PM Hanna Zenia null, [facility] 1 15:03:48 Removal of intraute rine device Completed 201507/17/2020 Encounte r for removal of intraute rine contrace ptive device;R ecorded Elsewher e: No Locat ion: [facility] S ource: [employer] heather: N Daryl ce ID: 0001 Melchor lable Time: 05:00:00 PM Hanna carr [facility] 15:17:09 Uses IUD (intraut erine device) contrace ption [id number] Completed 201407/17/2020 IUD check;Re corded Elsewher e: No Locat ion: [facility] S ource: [employer] heather: Lola Brito ce ID: 0001 Melchor lable Time: 01:45:00 PM Hanna Knutson [facility] 15:16:13 Breast lump [id number] Completed 201607/17/2020 Unspecif ied lump in breast;R ecorded Elsewher e: No Locat ion: [facility] S ource: [employer] heather: Lola Brito ce ID: 0001 Melchor lable Time: 09:30:00 AM Hannaeliza Knutson [facility] 15:03:45 Speciali zed medical examinat ion Completed 201407/17/2020 Well woman check;Re corded Elsewher e: No Locat ion: [facility] S ource: [employer] heather: Lola Brito ce ID: 0001 Melchor lable Time: 01:45:00 PM Hanna carr [facility] 15:21:31 Infectio n screenin g Completed 201707/17/2020 Encounte r for screenin g for oth infec/pa rastc diseases ;Recorde d Elsewher e: No Locat ion: [facility] S ource: [employer] heather: N Practi ce ID: 0001 Melchor lable Time: 03:15:00 PM Hanna Knutson [facility] 15:16:08 Screenin g for malignan t neoplasm of cervix Completed 201707/17/2020 Encounte r for screenin g for malignan t neoplasm of cervix;R ecorded Elsewher e: No Locat ion: [facility] S ource: [employer] heather: N Practi ce ID: 0001 Melchor lable Time: 03:15:00 PM Hanna Knutson [facility] 15:17:18 Depressi ve disorder [id number] Completed 201107/17/2020 Depressi on;Recor ded Elsewher e: No Locat ion: [facility] S ource: [employer] heather: N Practi ce ID: 0001 Melchor lable Time: 02:00:00 PM Hanna Knutson [facility] 15:04:02 Syphilis test finding [id number] Completed 201607/17/2020 Encntr screen for infectio ns w sexl mode of transmis s;Record ed Elsewher e: No Locat ion: [facility] S ource: [employer] heather: N Practi ce ID: 0001 Melchor lable Time: 03:00:00 PM Hanna Knutson [facility] 15:21:38 Routine antenata l care Completed 201007/17/2020 Supervis ion of other normal pregnanc y;Practi ce ID: 0001 Hanna Knutson [facility] 15:17:16 Excessiv e growth affectin g manageme nt of mother 88424071 Completed 201007/17/2020 GROWTH LARGE LGA;Prac batsheva ID: 0001 Hanna Knutson [facility] 15:04:25 Poor growth affectin g manageme nt 198018564 Completed 201007/17/2020 GROWTH POOR SGA;Prac batsheva ID: 0001 [facility] 15:16:55 Delivery normal [id number] Completed 201007/17/2020 Normal delivery ;Practic e ID: 0001 [facility] 15:04:00 Single live 985538621 Completed 201007/17/2020 Mother with single liveborn ;Practic e ID: 0001 [facility] 15:17:21 Postpart um care Completed 201007/17/2020 Routine postpart um follow-u p;Daryl ce ID: 0001 [facility] 15:16:58 Ill-defi reece intestin al infectio n Completed 201007/17/2020 No Show Fee;Prac batsheva ID: 0001 [facility] 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 15:16:25 Vaginiti s and vulvovag initis Completed 201107/17/2020 Vaginiti s and vulvovag initis, unspecif ied;Prac batsheva ID: 0001 [facility] 15:21:48 Nausea and vomiting 09113984 Completed 201607/17/2020 Nausea with vomiting , unspecif ied;Chace rded Elsewher e: No [facility]: [employer] heather: N Leonti ce ID: 0001 Melchor lable Time: 03:00:00 PM Hanna Knutson [facility] 1 15:16:22 Evaluati on finding Completed 201607/17/2020 Hematuri a, unspecif ied;Chace rded Elsewher e: No Locat ion: [facility] S ource: [employer] heather: N Leonti ce ID: 0001 Melchor lable Time: 09:30:00 AM Hanna [facility] 15:04:16 Disorder of breast [id number] Completed 201807/17/2020 Disorder of breast, unspecif ied;Chace rded Elsewher e: No Locat ion: [facility] S ource: [employer] heather: N Leonti ce ID: 0001 Melchor lable Time: 10:30:00 AM Hanna Knutson [facility] 1 15:04:05 Threaten ed miscarri age 56991654 Completed 201607/17/2020 Threaten ed ;Recorde d Elsewher e: No Locat ion: [facility] S ource: [employer] heather: N Leonti ce ID: 0001 Melchor lable Time: 05:00:00 PM Hanna Knutson [facility] 15:21:40 Vaginola bial hernia Completed 201707/17/2020 Other specifie d noninfla mmatory disorder s of vagina;R ecorded Elsewher e: No Locat ion: [facility] S ource: [employer] heather: N Leonti ce ID: 0001 Melchor lable Time: 10:15:00 AM Hanna Knutson [facility] 15:21:51 Malaise and fatigue [id number] Completed 201207/17/2020 Fatigue / Malaise; Recorded Elsewher e: No Locat ion: [facility] S ource: [employer] heather: N Practi ce ID: 0001 Melchor lable Time: 05:00:00 PM Hanna carr [facility] 1 15:16:20 Finding of defecati on Completed 201607/17/2020 Constipa tion;Rec orded Elsewher e: No Locat ion: [facility] Pract[facility] ID: 0001 Melchor lable Time: 03:00:00 PM Hanna Knutson [facility] 15:04:48 Abdomina l pain [id number] Completed 201107/17/2020 Abdomina l pain, other specifie d site;Rec orded Elsewher e: No Locat ion: [facility] N Practi ce ID: 0001 Melchor lable Time: 11:15:00 AM Hanna carr [facility] 1 15:03:32 Exposure to sexually transmis sible disorder Completed 201807/17/2020 Exposure to infectio n with a predomin antly sexual mode of transmis shyann;Rec orded Elsewher e: No [facility]: [employer] heather: N Practi ce ID: 0001 Melchor lable Time: 01:45:00 PM Hanna Knutson [facility] 1 15:04:28 Finding of trunk structur e [id number] Completed 201107/17/2020 Abdomina l or pelvic swelling , mass, or lump, other specifie d site;Rec orded Elsewher e: No [facility]: [employer] heather: N Practi ce ID: 0001 Melchor lable Time: 08:30:00 AM Hanna [facility] 15:04:54 Female genital organ symptoms [id number] Completed 201207/17/2020 Unspecif ied symptom associat ed with female genital organs;R ecorded Elsewher e: No Locat ion: [facility] S ource: [employer] heather: N Leonti ce ID: 0001 Melchor lable Time: 01:45:00 PM Hanna Knutson [facility] 15:04:38 Pregnanc y detectio n examinat ion Completed 201607/17/2020 Encounte r for pregnanc y test, result positive ;Recorde d Elsewher e: No Locat ion: [facility] S ource: [employer] heather: N Leonti ce ID: 0001 Melchor lable Time: 03:00:00 PM [facility] 15:17:01 Gestatio n period, 9 weeks [id number] Completed 201607/17/2020 9 weeks gestatio n of pregnanc y;Record ed Elsewher e: No Locat ion: [facility] S ource: [employer] heather: N Leonti ce ID: 0001 Melchor lable Time: 10:00:00 AM Hanna Knutson [facility] 15:14:49 Retained placenta , without hemorrha ge [id number] Completed 201707/17/2020 Retained placenta w/o hemorrha ge;Recor ded Elsewher e: No Locat ion: [facility] S ource: [employer] heather: N Practi ce ID: 0001 Melchor lable Time: 01:30:00 PM Hannaeliza Knutson [facility] 15:17:13 Amenorrh ea [id number] Completed 201607/17/2020 Amenorrh ea, unspecif ied;Chace rded Elsewher e: No Locat ion: [facility] S ource: [employer] heather: N Practi ce ID: 0001 Melchor lable Time: 03:00:00 PM Hanna carr [facility] 1 15:03:37 Delayed delivery of second twin, triplet etc Completed 201707/17/2020 Delayed delivery of other multiple gestatio n fetus;Re corded Elsewher e: No [facility] S [facility]: [employer] heather: N Daryl ce ID: 0001 Melchor lable Time: 10:00:00 AM Hanna carr, [facility] 1 15:03:54 BRCA2 gene mutation detected [id number] Active 2022 Lexx Barry MD [address], [place], [address], [facility] 3 16:17:40 Problem Notes None recorded. Procedures Surgical History Date Name Laterality Status Provider Name and Address Organization Details Recorded Time 03/12/20 24 OOPHORECTOMY (SURG) completed Leeanna Huynh [facility] 03/12/2024 12:57:26 01/16/20 24 Date of Last Mammogram completed Shelley Haque [facility] 02/23/2024 11:41:42 09/27/19 23 Date of Last Pap Smear completed Ivon Hernandez [facility] 08/08/2023 12:29:58 08/16/19 22 procedure on back completed [facility] 09/24/2021 12:35:12 Dilation and Curettage completed [facility] 11/03/2019 10:27:24 Hysteroscopy completed [facility] 11/03/2019 10:27:38 Imaging Results None recorded. Procedure Notes None recorded. Medical Equipment None [...] e: No Locat ion: [facility] odify By: [email or web address] Encounte r DateTime : 05/07/19 10:30:00 AM Not Available [...] ed Elsewher e: No Locat ion: [facility] odify By: amzev garay DateTime : 12/18/19 17 10:00:00 AM [...] Prescrib ed Elsewher e: No [facility] By: amzev Goddard ncounter DateTime : 11/30/19 17 03:00:00 PM Not [...] Prescrib ed Elsewher e: No [facility] By: amzev Goddard ncounter DateTime : 12/13/19 17 04:20:18 PM Not Available Not Available Not Available Macrobid 100 mg capsule take 1 capsule by oral route every 12 hours with food, as directed 07/23 completed Prescrib ed Elsewher e: No [facility] odify By: [email or web address] Goddard ncounter DateTime : 06/24/19 18 04:12:42 PM Not Available Not Available Not Available oxycodone -acetamin ophen 5 mg-325 mg tablet 09/24 completed Not Available Not Available Not Available Zoloft 50 mg tablet take 1 tablet (50MG) by oral route every day 11/11 completed Prescrib ed Elsewher e: No [facility] odify By: warrenzev Goddard ncountdiane DateTime : 08/21/19 12 02:00:00 PM Not Available Not Available Not Available Flagyl 500 mg tablet take 1 tablet by oral route 2 times every day 06/24 completed Prescrib ed Elsewher e: No Locat ion: [facility] odify By: amzev Goddard ncounter DateTime : 05/30/19 18 02:30:00 [...] Elsewher e: No Locat ion: [facility] odify By: rita Goddard ncounter DateTime : 07/03/19 04:00:00 PM [...] Prescrib ed Elsewher e: Yes [facility] By: amzev Goddard ncounter DateTime : 07/03/19 04:00:00 PM Not Available Not Available Not Available omeprazol e 20 mg capsule,d elayed release TAKE 1 CAPSULE BY MOUTH EVERY DAY BEFORE A MEAL active Not Available Not Available No t Available Tylenol 325 mg tablet take 1 tablet by oral route every 4 hours as needed 02/18 completed Prescrib ed Elsewher e: Yes [facility] By: rita Goddard ncounter DateTime : 07/03/19 04:00:00 PM [...] Prescrib ed Elsewher e: No Locat ion: [facility] odify By: [email or web address] Encounte r DateTime : 05/11/19 11:15:00 AM Not Available Not Available Not Available Nordman 10 mg-325 mg tablet take 1 tablet by oral route every 4 - 6 hours as needed for pain 07/02 completed Prescrib ed Elsewher e: No Locat ion: [facility] odify By: amzev Goddard ncounter DateTime : 06/20/19 18 04:30:00 PM Not Available Not Available Not [...] Prescrib ed Elsewher e: Yes Loca tion: [facility] odify By: [email or web address] Encounte r DateTime : [...] Prescrib ed Elsewher e: No Locat ion: [facility] odify By: rita garay DateTime : 09/04/19 12 08:30:00 AM Not [...] Prescrib ed Elsewher e: No Locat ion: [facility] odify By: rita garay DateTime : 05/16/19 18 10:45:00 AM Not Available Not Available Not Available Anusol-HC 2.5 % topical cream with perineal applicato r apply by topical route 2 times every day to the affected area(s) 07/23 completed Prescrib ed Elsewher e: No Locat ion: [facility] odify By: rita garay DateTime : 12/18/19 17 10:00:00 AM Not Available Not Available Not Available ID NOW COVID-19 Test Kit TEST DIRECTED 12/28 completed Not Available Not Available Not Available Vitals Date Recorded Body height Body mass index (BMI) Body weight Systolic blood pressure Diastolic blood pressure Provider Name and Address Organization Details Last Updated DateTime 02/19/2024 162.56 cm 29.5 kg/m2 63932.89 g 98 mm[Hg] 66 mm[Hg] Shelley Haque [place] - [facility] 4 14:47:19 Social History Question Answer Notes LastModified by Organizat ion Details LastModified Time Tobacco Smoking Status Current Every Day Smoker [facility] 09/26/2022 15:51:26 Do You Have An [...] Or The Highest Degree You Have Received? [id number] Information not available 12/28/2020 What Is Your [...] Anxious, Or Unable To Sleep At Night)? [id number] Information not available 12/27/2020 Do You Use [...] available 2019 10:20:07 Sister Cyst of ovary [email or web address] Not available 2023 12:34:34 Maternal Uncle Carcinoma of prostate [email or web address] Not available 2023 12:34:34 Maternal Uncle Malignant tumor of pancreas [email or web address] Not available 2023 12:34:34 Paternal Uncle Malignant lymphoma [email or web address] Not available 2023 12:34:34 Medical History Condition Response Other Y Blood Transfusion Y Acid Reflux (GERD) Y GI Problems Y Anemia Y Gynecological History Statement/Question Response Abnormal Pap [...] Diagnosis/Indication Diagnosis SNOMED-CT Code Diagnosis ICD10 Code [id number] Lakeisha Lange [place] [address] [address] 02/17/2024 17:32:13 02/17/2024 18:20:36 Family history of malignant neoplasm of ovary [id number] Z80.41 [id number] Lexx Barry MD [place] [address] [address] 02/19/2024 14:29:38 02/19/2024 15:39:07 Cyst of ovary [id number] N83.209 Health Concerns Section Related Observation LastModified by Organization Detai ls LastModified Time None Recorded Concern Status LastModified by Organization Details LastModified Time None Recorded Payers Encounter Date Sequence Insurance Name Policy Number Policy Serrano Covered Member ID Serrano Member ID Guarantor Name 02/19/2024 1 [facility] - DOS ON OR AFTER 20 (MEDICAID REPLACEMENT - HMO) Tessy Saenz [id number] Tessy Saenz Notes Date Note Type Note Provider Name and Address Organization Details Recorded Time 02/19/2024 text/html 38-year-old fema le with an [...] time. Considering oophorectomy. Lexx Barry MD [address], [place], [address], [facility] 02/19/2024 15:25:38 OBGyn Episode No OBEpisode recorded.
--- OUTSIDE RECORDS SUMMARY | 2024-03-19 00:49 | XMS_ITS | Clinical Summary ---
Author Organization [facility] [email or web address] Address [address] [place] [address] Care Team Providers Care Modeling Agent Name Role Phone Demar Campbell MD Primary Care Provider [phone] Source Comments [facility] [email or web address],non-owned Affiliates and Associated Physician Practices is amultiple site organization consisting of ambulatory clinics and hospital sitesin [place], [place], [place] and [place]. This disclosure is being madepursuant to the Care Everywhere program and may not contain all information available regarding this patient. Last updated 17.[facility] [email or web address] Allergies No known active allergies Medications * Be aware that medications may not be up to date on this document. Alwaysverify current medications with the patient. Medication Sig Dispensed Refills Start Date End Date Status clindamycin (CLEOCIN) 1 % lotionIndication s:Hidradenitis suppurativa,Acne vulgaris Apply to affected areas of HS/body acne twice daily when present. 60 mL 11 08/22/2021 Active doxycycline hyclate (VIBRAMYCIN) 100 MG tabletIndication s:Acne Vulgaris Take 1 pill twice daily with food. Reasons: Common Acne 60 tablet 3 10/02/2021 Active Additional Information Patient not taking.Reported on 03/01/2024 levonorgestrel (Mirena, 52 MG,) 20 MCG/DAY IUD Active spironolactone (Aldactone) 100 MG tablet Take 1 (one) tablet by mouth once daily 12/08/2021 Active albuterol HFA (Proventil; Ventolin; Proair) 108 (90 Base) MCG/ACT inhaler Inhale 1 (one) puff by mouth every 4 hours as needed for Shortness of Breath or Wheezing 12/03/2023 Active folic acid (Folvite) 1 MG tablet Take 1 (one) tablet by mouth once daily 01/30/2024 Active polyethylene glycol 3350 (Miralax) 17 GM/SCOOP powder Take 17 (seventeen) g by mouth once daily 238 g 03/03/2024 Active psyllium (Metamucil) CAPS capsule Take 1 (one) capsule by mouth 2 times daily for 90 days 180 capsule 03/03/2024 5 Active ergocalciferol (Drisdol) 1.25 MG (68460 UT) capsuleIndicatio ns:Vitamin D Deficiency Take 1 (one) capsule by mouth every 7 days for 8 doses Reasons: Vitamin D Deficiency 8 capsule 03/03/2024 5 Active folic acid (Folvite) 1 MG tabletIndication s:Folate Deficiency Anemia Take 1 (one) tablet by mouth once daily for 90 days Reasons: Anemia From Inadequate Folic Acid 90 tablet 03/03/2024 5 Active omeprazole (PriLOSEC) 40 MG capsuleIndicatio ns:Erosive Esophagitis Take 1 (one) capsule by mouth daily before breakfast for 90 days Reasons: Esophagus Inflammation with Erosion 90 capsule 03/03/2024 5 Active cephalexin (KEFLEX) 500 MG capsule Take 500 mg by mouth every 12 hours 04/11/2020 4 Discontinue d(List Clean-Up) ibuprofen (MOTRIN) 800 MG tablet TK 1 T PO Q 6 TO 8 H WF PRN 12/14/2019 4 Discontinue d(List Clean-Up) cyclobenzaprine (FLEXERIL) 5 MG tablet Take 5 mg by mouth 3 times daily as needed FOR MUSCLE SPASM 07/23/2020 4 Discontinue d(List Clean-Up) oxyCODONE-acetam inophen (PERCOCET) 5-325 MG tablet Take 1 tablet by mouth every 6 hours as needed 07/26/2020 4 Discontinue d(List Clean-Up) HYDROcodone-acet aminophen (NORCO) 5-325 MG tablet Take 1 (one) tablet by mouth every 6 hours as needed pain 08/16/2021 4 Discontinue d(List Clean-Up) tretinoin (RETIN-A) 0.025 % creamIndications :Acne vulgaris Pea sized amount to entire face at night as tolerated. 30 days supply. 45 g 11 08/22/2021 4 Discontinue d(List Clean-Up) tretinoin (Retin-A) 0.025 % cream APPLY TOPICALLY TO THE AFFECTED AREA EVERY DAY 07/05/2020 4 Discontinue d(List Clean-Up) omeprazole (PriLOSEC) 20 MG capsule Take 1 (one) capsule by mouth 2 times daily, before breakfast and supper 11/19/2023 4 Discontinue d(Reorder) Active Problems Problem Noted Date Diagnosed Date Metabolic dysfunction-associ ated steatotic liver disease (MASLD) 03/01/2024 Overview (03/03/2024): 03/01/24 Fibroscan CAP 342, LSM 4.2 kPa BRCA gene positive 11/25/2017 Ulcerative colitis without complications 018 Anemia 07/20/2014 Encounters Date Type Department Care Team Description 03/03/2024 1:35 PM DEVELOPMENT WRITER Anesthesia Event [facility] [address] [place] [phone] Terry Michael MD 03/03/2024 12:45 PM DEVELOPMENT WRITER - 03/03/2024 1:30 PM DEVELOPMENT WRITER Surgery [facility] [address] [place] [phone] Milka Soni MD EGD w/ loyda 03/03/2024 11:48 AM DEVELOPMENT WRITER - 03/03/2024 3:56 PM DEVELOPMENT WRITER Hospital Encounter [facility] [address] [place] [address] Milka Soni MD Surgery General Discharge Disposition: Home or Self Care 03/03/2024 Orders Only [facility] [address] [facility] [place] [address] Milka Soni MD Hidradenitis suppurativa 03/03/2024 Orders Only [facility] [address] [place] [phone] Milka Soni MD 03/03/2024 Travel 03/01/2024 4:15 PM DEVELOPMENT WRITER - 03/01/2024 11:59 PM DEVELOPMENT WRITER Hospital Encounter [facility] DRAW STATION [address] [place] [address] Milka Soni MD Discharge Disposition: Home or Self Care 03/01/2024 3:30 PM DEVELOPMENT WRITER Procedure visit [facility] - [facility] [address] [place] [phone] Milka Soni MD NAFLD (nonalcoholic fatty liver disease) 03/01/2024 2:00 PM DEVELOPMENT WRITER Office Visit [facility] - GI [address] [place] [phone] Milka Soni MD Ulcerative colitis with complication, unspecified location (HCC) (Primary Dx); Hepatic fibrosis; Intestinal malabsorption, unspecified type (HCC); Therapeutic drug monitoring; Gastroesophageal reflux disease, unspecified whether esophagitis present 03/01/2024 Travel 02/09/2024 10:30 AM DEVELOPMENT WRITER Office Visit [facility] - General Surgery [address] [place] [address] Linda Dueñas MD BRCA2 positive (Primary Dx); BRCA gene positive; BRCA2 genetic carrier 02/09/2024 9:45 AM DEVELOPMENT WRITER - 02/09/2024 11:59 PM DEVELOPMENT WRITER Hospital Encounter [facility] [address] [place] [address] Linda Dueñas MD Discharge Disposition: Home or Self Care 02/04/2024 Travel 12/23/2023 Telephone [facility] [address] [place] [address] Sofy Galvan Follow-up from Last 3 Months Family History Medical History Relation Name Comments Cancer - Prostate Maternal Uncle 1 ocbar Cancer - Liver Maternal Uncle 2 hasan Cancer - Ovarian Mother Relation Name Status Comments Maternal Uncle 1 ocbar Maternal Uncle 2 hasan Alive Mother Social History Tobacco Use Types Packs/Day Years Used Date Smoking Tobacco: Some Days Cigarettes Smokeless Tobacco: Never Tobacco Cessation:Ready to Q uit: Not Asked; Counseling Given: Not Answered Alcohol Use Standard Drinks/Week Comments Not Currently 0 (1 standard drink = 0.6 oz pur e alcohol) Sex and Gender Information Value Date Recorded Sex Assigned at Not on file Gender Identity Not on file Sexual Orientation Not on file Last Filed Vital Signs Vital Sign Reading Time Taken Comments Blood Pressure 88/63 03/03/2024 3:15 PM DEVELOPMENT WRITER Pulse 53 03/03/2024 3:15 PM DEVELOPMENT WRITER Temperature 36.4 ??C (97.6 ??F) 03/03/2024 2:30 PM CS T Respiratory Rate 11 03/03/2024 3:15 PM DEVELOPMENT WRITER Oxygen Saturation 100% 03/03/2024 3:15 PM DEVELOPMENT WRITER Inhaled Oxygen Concentration - - Weight 76.7 kg (169 lb) 03/03/2024 12:05 PM DEVELOPMENT WRITER Height 165.1 cm (5' 5 ) 03/03/2024 12:05 PM DEVELOPMENT WRITER Body Mass Index 28.12 03/03/2024 12:05 PM DEVELOPMENT WRITER Plan of Treatment Upcoming Encounters Date Type Department Care Team (Late st Contact Info) Description 04/09/2024 8:00 AM DEVELOPMENT WRITER Office Visit [facility] - GI [address] [place] [phone] Gigi Bueno MD [address] [place] [address] [place] [address] 07/01/2024 1:30 PM CDT Office Visit [facility] - GI [address] [place] [phone] Milka Soni MD [address] [place] [phone] 08/02/2024 9:30 AM CDT Appointment [address] [phone] Linda Dueñas MD [address] [facility] [place] [address] 08/02/2024 10:30 AM CDT Office Visit [facility] - General Surgery [address] [place] [phone] Linda Dueñas MD [address] [facility] [place] [address] 02/07/2025 10:30 AM DEVELOPMENT WRITER Appointment [address] [address] Linda Dueñas MD [address] [facility] [place] [address] 02/07/2025 11:00 AM DEVELOPMENT WRITER Office Visit [facility] General Surgery [address] [place] [phone] Linda Dueñas MD [address] [facility] [place] [address] Health Maintenance Due Date Last Done Comments PAP SMEAR 1985 PNEUMOCOCCAL VACCINE (1 of 2 - PCV) 06/16/1993 HIV SCREENING 06/16/2002 DTAP/TDAP/TD VACCINES (1 - Tdap) 06/16/2006 HEPATITIS B VACCINE (1 of 3 - 19+ 3-dose series) 06/16/2006 COVID-19 VACCINE (1 - 2023-2 5 season) 2023 INFLUENZA VACCINE (#1) 2023 DEPRESSION SCREENING 03/17/2024 ZOSTER VACCINE (1 of 2) 06/16/2037 HEPATITIS C SCREENING Completed 03/01/2024 HIB VACCINE Aged Out No longer eligi ble based on patient's age to complete this topic HPV VACCINE Aged Out No longer eligi ble based on patient's age to complete this topic MENINGOCOCCAL VACCINE Aged Out No brisa liz eligible based on patient's age to complete this topic Goals Goal Patient Goal Type Associated Problems Recent Progress Patient-Stated? Author Medication Management General On track( 024 2:10 PM DEVELOPMENT WRITER) No Gordy Farnsworth, HAM Note: Expected end date: ongoing Interventions: Take all medications as prescribed Let your doctor know right away about any changes in your medications Make sure to request a refill of your medication at least one week prior to your last dose Procedures Procedure Name Priority Date/Time Associated Diagnosis Comments ENDOSCOPY, COLON, DIAGNOSTIC Routine 03/03/2024 1:56 PM DEVELOPMENT WRITER PATHOLOGY TISSUE Routine 03/03/2024 1:45 PM DEVELOPMENT WRITER Ulcerative colitis with complication, unspecified location (HCC) Gastroesophageal reflux disease, unspecified whether esophagitis present EGD Routine 03/03/2024 1:30 PM DEVELOPMENT WRITER OH COLONOSCOPY, DIAGNOSTIC 03/03/2024 1:29 PM DEVELOPMENT WRITER Ulcerative colitis with complication, unspecified location (HCC) Gastroesophageal reflux disease, unspecified whether esophagitis present Special Needs Message Received: Today Milka Soni MD Johnson, Sarah N., RN Jarred Santacruz, Please can you schedule EGD and Colonoscopy for this patient this coming Friday!! She has another surgery next Friday and I want to get her in!! Thanks! Received Date Received Time Mar 01, 2024 3:37 PM OH ED EGD FLEX TRANSORAL DX 03/03/2024 1:29 PM DEVELOPMENT WRITER Ulcerative colitis with complication, unspecified location (HCC) Gastroesophageal reflux disease, unspecified whether esophagitis present Special Needs Message Received: Today Milka Soni MD Johnson, Sarah N., RN Jarred Santacruz, Please can you schedule EGD and Colonoscopy for this patient this coming Friday!! She has another surgery next Friday and I want to get her in!! Thanks! Received Date Received Time Mar 01, 2024 3:37 PM HCG URINE QUALITATIVE - POCT (IP) INTERFACED Routine 03/03/2024 12:09 PM DEVELOPMENT WRITER HCG URINE QUAL POCT NOTIFICATION STAT 03/03/2024 11:53 AM DEVELOPMENT WRITER Pre-op exam SMOOTH MUSCLE ANTIBODY W REFLEX TITER Routine 03/01/2024 4:29 PM DEVELOPMENT WRITER Hepatic fibrosis Ulcerative colitis without complications, unspecified location (HCC) Intestinal malabsorption, unspecified type (HCC) Therapeutic drug monitoring VITAMIN D 25-HYDROXY Routine 03/01/2024 4:29 PM DEVELOPMENT WRITER Hepatic fibrosis Ulcerative colitis with complication, unspecified location (HCC) Intestinal malabsorption, unspecified type (HCC) Therapeutic drug monitoring VITAMIN B12 Routine 03/01/2024 4:29 PM DEVELOPMENT WRITER Hepatic fibrosis Ulcerative colitis with complication, unspecified location (HCC) Intestinal malabsorption, unspecified type (HCC) Therapeutic drug monitoring FERRITIN Routine 03/01/2024 4:29 PM DEVELOPMENT WRITER Hepatic fibrosis Ulcerative colitis with complication, unspecified location (HCC) Intestinal malabsorption, unspecified type (HCC) Therapeutic drug monitoring FOLATE Routine 03/01/2024 4:29 PM DEVELOPMENT WRITER Hepatic fibrosis Ulcerative colitis with complication, unspecified location (HCC) Intestinal malabsorption, unspecified type (HCC) Therapeutic drug monitoring IRON + TRANSFERRIN PANEL Routine 03/01/2024 4:29 PM DEVELOPMENT WRITER Hepatic fibrosis Ulcerative colitis with complication, unspecified location (HCC) Intestinal malabsorption, unspecified type (HCC) Therapeutic drug monitoring C-REACTIVE PROTEIN Routine 03/01/2024 4:29 PM DEVELOPMENT WRITER Hepatic fibrosis Ulcerative colitis with complication, unspecified location (HCC) Intestinal malabsorption, unspecified type (HCC) Therapeutic drug monitoring COMPREHENSIVE METABOLIC PANEL Routine 03/01/2024 4:29 PM DEVELOPMENT WRITER Hepatic fibrosis Ulcerative colitis with complication, unspecified location (HCC) Intestinal malabsorption, unspecified type (HCC) Therapeutic drug monitoring CBC W AUTO DIFFERENTIAL Routine 03/01/2024 4:29 PM DEVELOPMENT WRITER Hepatic fibrosis Ulcerative colitis with complication, unspecified location (HCC) Intestinal malabsorption, unspecified type (HCC) Therapeutic drug monitoring HEPATITIS C ANTIBODY Routine 03/01/2024 4:29 PM DEVELOPMENT WRITER Hepatic fibrosis Ulcerative colitis with complication, unspecified location (HCC) Intestinal malabsorption, unspecified type (HCC) Therapeutic drug monitoring HEPATITIS B CORE ANTIBODY TOTAL Routine 03/01/2024 4:29 PM DEVELOPMENT WRITER Hepatic fibrosis Ulcerative colitis with complication, unspecified location (HCC) Intestinal malabsorption, unspecified type (HCC) Therapeutic drug monitoring HEPATITIS B SURFACE ANTIBODY Routine 03/01/2024 4:29 PM DEVELOPMENT WRITER Hepatic fibrosis Ulcerative colitis with complication, unspecified location (HCC) Intestinal malabsorption, unspecified type (HCC) Therapeutic drug monitoring HEPATITIS B SURFACE ANTIGEN W RFLX CONFIRMATION Routine 03/01/2024 4:29 PM DEVELOPMENT WRITER Hepatic fibrosis Ulcerative colitis with complication, unspecified location (HCC) Intestinal malabsorption, unspecified type (HCC) Therapeutic drug monitoring NERI BLOOD SCREEN W/REFLEX TITER Routine 03/01/2024 4:29 PM DEVELOPMENT WRITER Hepatic fibrosis Ulcerative colitis with complication, unspecified location (HCC) Intestinal malabsorption, unspecified type (HCC) Therapeutic drug monitoring QUANTIFERON-TB GOLD PLUS 4-TUBE Routine 03/01/2024 4:29 PM DEVELOPMENT WRITER Hepatic fibrosis Ulcerative colitis with complication, unspecified location (HCC) Intestinal malabsorption, unspecified type (HCC) Therapeutic drug monitoring OH LIVER ELASTOGRAPHY Routine 03/01/2024 3:55 PM DEVELOPMENT WRITER Hepatic fibrosis MAMMO BILAT SCREENING W CLEMENTE Routine 02/09/2024 10:58 AM DEVELOPMENT WRITER BRCA gene positive from Last 3 Months Results * ENDOSCOPY, COLON, DIAGNOSTIC (03/03/2024 1:56 PM DEVELOPMENT WRITER) Report Endoscopy POC Endoscopy Department Report _ Patient Name: Tessy Medina ?Procedure Date: 03/03/2024 1:56 PM ?Date of : 1985 Classification: Outpatient ?Gender: Female Ethnicity: Not or ? Race: Patient Declined _ Providers: ?Milka Soni MD Referring MD: ? Demar Campbell (Referring MD) Procedure: ?Colonoscopy Indications: ?Disease activity assessment of reported chronic ?ulcerative pancolitis- off therapy Medications: ?Monitored Anesthesia Care Patient Profile: ?This is a 38 year old female. Description of Procedure: Pre-Anesthesia Assessment: ?- Prior to the procedure, a History and Physical ?was performed, and patient medications and ?allergies were reviewed. The patient's tolerance of ?previous anesthesia was also reviewed. The risks ?and benefits of the procedure and the sedation ?options and risks were discussed with the patient. ?All questions were answered, and informed consent ?was obtained. Prior Anticoagulants: The patient has ?taken no anticoagulant or antiplatelet agents. ASA ?Grade Assessment: I - A normal, healthy patient. ?After reviewing the risks and benefits, the patient ?was deemed in satisfactory condition to undergo the ?procedure. ?After I obtained informed consent, the scope was ?passed under direct vision. Throughout the ?procedure, the patient's blood pressure, pulse, and ?oxygen saturations were monitored continuously. The ?Colonoscope was introduced through the anus and ?advanced to the terminal ileum. The colonoscopy was ?performed without difficulty. The patient tolerated ?the procedure well. The quality of the bowel ?preparation was good. Anatomical landmarks were ?photographed. ? Findings: ? The perianal and digital rectal examinations were normal. ? The terminal ileum appeared normal. Biopsies were taken with a cold ? forceps for histology. ? Inflammation was not found based on the endoscopic appearance of the ? mucosa in the colon. This was graded as Dominguez Score 0 (normal or inactive ? disease), and when compared to the previous examination, the findings ? are quiescent. Multiple biopsies were obtained with cold forceps for ? ulcerative colitis surveillance randomly from right and left colon. ? There was a single large (3 cm) nonbleeding ulcer with no stigmata of ? recent bleeding was present in the rectum. Biopsies were taken with a ? cold forceps for histology. ? Estimated Blood Loss: ? Estimated blood loss was minimal. Complications: ?No immediate complications. Impression: ? - The examined portion of the ileum was normal. ?Biopsied. ?- Inactive (Dominguez Score 0) pancolitis ulcerative ?colitis, quiescent since the last examination. ?- Large rectal ulcer could be related to solitary ?rectal ulcer syndrome. Biopsied. ?- Multiple biopsies were obtained. Recommendation: ? - Resume regular diet. ?- Continue present medications. ?- Await pathology results. ?- Review the previous colonoscopy reports ?- Repeat colonoscopy for surveillance based on ?pathology results. ?- Return to GI clinic as previously scheduled. ? Procedure Code(s): ? --- Professional --- ? 34623, Colonoscopy, flexible; with biopsy, single or multiple Diagnosis Code(s): ?--- Professional --- ?K51.00, Ulcerative (chronic) pancolitis without ?complications ?K63.3, Ulcer of intestine CPT copyright 2021 [employer]. All rights reserved. The codes documented in this report are preliminary and upon veterinary medicine teacher review may be revised to meet current compliance requirements. Milka Soni MD 03/03/2024 2:39:48 PM Note Initiated On: 03/03/2024 1:56 PM Number of Addenda: 0 ? [facility] ? [address] [place], [place] [id number] [place] [address] PROVATION 03/03/2024 1:56 PM DEVELOPMENT WRITER Milka Soni MD GI PROCEDURE ORDERAB LES Performing Organization Address [facility]/State/[facility] Co de Phone Number [facility] * PATHOLOGY TISSUE (03/03/2024 1:45 PM DEVELOPMENT WRITER) Case Report Surgical Pathology Report ? Case: [id number] ? Authorizing Provider: ??Milka Soni MD ?Collected: ? 03/03/2024 01:49 PM ? Ordering Location: ? [facility] ?Received: ?03/03/2024 03:06 PM ? Pathologist: ? Jessa Bland MD ? Specimens: ?? A) - Duodenum, A. Duodenal Polyp Biopsy ? B) - Gastric, Gastric Biopsy r/o H-Pylori ? C) - Colon, Terminal Ileum Biopsy r/o Ileoitis ? D) - Colon, Right Colon Biopsy r/o Colitis ? E) - Colon, Left Colon Biopsy r/o Colitis ? F) - Rectum, Rectal Ulcer Biopsy ? 03/04/2024 10:45 AM DEVELOPMENT WRITER [facility] Final Diagnosis Small intestine, duodenal polyp, biopsy (A): - No histopathologic abnormality (superficial biopsy) Stomach, biopsy (B): - No histopathologic abnormality - No active inflammation or H. pylori organisms (H&E examination) Small intestine, terminal ileum, biopsy (C): - No histopathologic abnormality Large intestine, right colon, biopsy (D): - No histopathologic abnormality Large intestine, left colon, biopsy (E): - No histopathologic abnormality Large intestine, rectal ulcer, biopsy (F): - Ulcer, fibrosis, and reactive changes 03/04/2024 10:45 AM [facility] Microscopic Description and Comment The rectal ulcer biopsy (part F) is several fragments of necroinflammatory ulcer debris and few fragments of more intact surrounding mucosa. In this surrounding mucosa, there is not a background of chronic active proctitis, but instead there is very dense lamina propria fibrosis and reactive changes including mild crypt withering. Such findings are not entirely specific but are compatible with solitary rectal ulcer syndrome, mucosal prolapse with mechanical injury, or stercoral ulcer. The relatively uninflamed mucosa would not be typical ulcerative colitis. None of the biopsies has overt features of chronic inflammatory bowel disease, or dysplasia. 03/04/2024 10:45 AM [facility] Clinical History The patient is a 38-year-old woman with heartburn who also presents for disease activity assessment of reported chronic ulcerative pancolitis, off therapy. Operative procedure/findings: EGD - normal stomach, biopsied to rule out H. pylori; 1 duodenal polyp, biopsied. Colonoscopy - normal ileum, biopsy; inactive Dominguez score 0 pancolitis ulcerative colitis, quiescent since last examination, biopsied; large rectal ulcer could be related to solitary rectal ulcer syndrome, biopsied. 03/04/2024 10:45 AM [facility] Gross Description The requisition and specimen(s) are identified with the patient's name, Tessy Medina. Received in formalin, specimen A , is one pink-onofre and flocculent segment of soft tissue measuring 0.2 x 0.2 x 0.1 cm, submitted in toto as cassette A1. Received in formalin, specimen B are 3 onofre-white and glistening soft tissue fragments, ranging from 0.3 to 0.4 cm and measuring 0.4 x 0.4 x 0.2 cm in aggregate, submitted in toto as cassette B1. Received in formalin, specimen C are two onofre-white and flocculent segments of soft tissue measuring 0.2 and 0.3 cm, submitted in toto as cassette C1. Received in formalin, specimen D are 5 onofre-white and friable soft tissue fragments, ranging from 0.1 to 0.3 cm and measuring 0.5 x 0.4 x 0.1 cm in aggregate, submitted in toto as cassette D1. Received in formalin, specimen E are 6 onofre-white and friable soft tissue fragments, ranging from 0.1 to 0.4 cm and measuring 0.5 x 0.4 x 0.1 cm in aggregate, submitted in toto as cassette E1. Received in formalin, specimen F are multiple onofre-white soft tissue fragments, ranging from 0.1 to 0.3 cm and measuring 0.5 x 0.3 x 0.1 cm in aggregate, submitted in toto as cassette F1. NATTY 03/04/2024 10:45 AM [facility] Pathologist Location at [facility] 03/04/2024 10:45 AM [facility] Disclaimer The performance characteristics of all immunohistochemical and indirect immunofluorescence stains (if any) cited in this report were determined by the Histopathology Laboratory of [facility]. Some of these tests were developed by our own laboratory and have not been cleared or approved by the US Food and Drug Administration. The FDA does not require this test to go through premarket FDA review. These tests are used for clinical purposes. They should not be regarded as investigational or for research. This laboratory is certified under the Clinical Laboratory Improvement Amendments (CLIA) as qualified to perform high complexity clinical laboratory testing. This case has been personally reviewed and interpreted by the attending (teaching) pathologist. 03/04/2024 10:45 AM [facility] Embedded Images 03/04/2024 10:45 AM [facility] Biopsy, NOS PART OF DUODENUM / Unknown 03/03/2024 1:45 PM DEVELOPMENT WRITER 03/03/2024 3:06 PM DEVELOPMENT WRITER Comment:Pre-op diagnosis: Ulcerative colitis with complication, unspecified location (HCC) [K51.919] Gastroesophageal reflux disease, unspecified whether esophagitis present [K21.9] Biopsy, NOS GASTRIC CONTENTS SPECIMEN / Unknown 03/03/2024 1:49 PM DEVELOPMENT WRITER 03/03/2024 3:06 PM DEVELOPMENT WRITER Comment:Pre-op diagnosis: Ulcerative colitis with complication, unspecified location (HCC) [K51.919] Gastroesophageal reflux disease, unspecified whether esophagitis present [K21.9] Biopsy, NOS COLON PART / Unknown 03/03/2024 2:09 PM DEVELOPMENT WRITER 03/03/2024 3:06 PM DEVELOPMENT WRITER Comment:Pre-op diagnosis: Ulcerative colitis with complication, unspecified location (HCC) [K51.919] Gastroesophageal reflux disease, unspecified whether esophagitis present [K21.9] Biopsy, NOS COLON PART / Unknown 03/03/2024 2:12 PM DEVELOPMENT WRITER 03/03/2024 3:06 PM DEVELOPMENT WRITER Comment:Pre-op diagnosis: Ulcerative colitis with complication, unspecified location (HCC) [K51.919] Gastroesophageal reflux disease, unspecified whether esophagitis present [K21.9] Biopsy, NOS COLON PART / Unknown 03/03/2024 2:14 PM DEVELOPMENT WRITER 03/03/2024 3:06 PM DEVELOPMENT WRITER Comment:Pre-op diagnosis: Ulcerative colitis with complication, unspecified location (HCC) [K51.919] Gastroesophageal reflux disease, unspecified whether esophagitis present [K21.9] Biopsy, NOS ENTIRE RECTUM / Unknown 03/03/2024 2:17 PM DEVELOPMENT WRITER 03/03/2024 3:06 PM DEVELOPMENT WRITER Comment:Pre-op diagnosis: Ulcerative colitis with complication, unspecified location (HCC) [K51.919] Gastroesophageal reflux disease, unspecified whether esophagitis present [K21.9] Milka Soni MD LAB - PATHOLOGY/CYTO LOGY ORDERABLES Performing Organization Address City/State/[facility] Co de Phone Number [facility] [address] [phone] * EGD (03/03/2024 1:30 PM DEVELOPMENT WRITER) Report Endoscopy POC Endoscopy Department Report _ Patient Name: Tessy Medina ?Procedure Date: 03/03/2024 1:30 PM ?Date of : 1985 Classification: Outpatient ?Gender: Female Ethnicity: Not or ? Race: Patient Declined _ Providers: ?Milka Soni MD Referring MD: ? Demar Campbell (Referring MD) Procedure: ?Upper GI endoscopy Indications: ?Heartburn Medications: ?Monitored Anesthesia Care Patient Profile: ?This is a 38 year old female. Description of Procedure: Pre-Anesthesia Assessment: ?- Prior to the procedure, a History and Physical ?was performed, and patient medications and ?allergies were reviewed. The patient's tolerance of ?previous anesthesia was also reviewed. The risks ?and benefits of the procedure and the sedation ?options and risks were discussed with the patient. ?All questions were answered, and informed consent ?was obtained. Prior Anticoagulants: The patient has ?taken no anticoagulant or antiplatelet agents. ASA ?Grade Assessment: I - A normal, healthy patient. ?After reviewing the risks and benefits, the patient ?was deemed in satisfactory condition to undergo the ?procedure. ?After obtaining informed consent, the endoscope was ?passed under direct vision. Throughout the ?procedure, the patient's blood pressure, pulse, and ?oxygen saturations were monitored continuously. The ?Endoscope was introduced through the mouth, and ?advanced to the second part of duodenum. The upper ?GI endoscopy was accomplished without difficulty. ?The patient tolerated the procedure well. ? Findings: ? LA Grade A (one or more mucosal breaks less than 5 mm, not extending ? between tops of 2 mucosal folds) esophagitis with no bleeding was found ? 35 cm from the incisors. ? A 2 cm hiatal hernia was present. ? No esophageal varices ? The entire examined stomach was normal. Biopsies were taken with a cold ? forceps for histology. ? One 8 mm sessile polyp with no bleeding was found in the second portion ? of the duodenum. Area was successfully injected with 2 mL Eleview for a ? lift polypectomy. However continuous bleeding occured and the polyp ? margins could not be confidently determined. So polypectomy was not ? attempted and two small biopsy bites were taken. ? The rest of the duodenum was normal ? Estimated Blood Loss: ? Estimated blood loss was minimal. Complications: ?No immediate complications. Impression: ? - 2 cm hiatal hernia. ?- LA Grade A reflux esophagitis with no bleeding. ?- Normal stomach. Biopsied. ?- One duodenal polyp. Biopsied Recommendation: ? - GERD prevention diet. ?- Await pathology results. If duodenal polyp turned ?to be adenoma , will schedule for removal. ?- Use Prilosec (omeprazole) 40 mg PO daily. ? Procedure Code(s): ? --- Professional --- ? 73481, Esophagogastroduo denoscopy, flexible, transoral; with biopsy, ? single or multiple Diagnosis Code(s): ?--- Professional --- ?K44.9, Diaphragmatic hernia without obstruction or ?gangrene ?K21.00, Gastro-esophageal reflux disease with ?esophagitis, without bleeding ?K31.7, Polyp of stomach and duodenum ?R12, Heartburn CPT copyright 2021 [employer]. All rights reserved. The codes documented in this report are preliminary and upon veterinary medicine teacher review may be revised to meet current compliance requirements. Milka Soni MD 03/03/2024 2:30:52 PM Note Initiated On: 03/03/2024 1:30 PM Number of Addenda: 0 ? [facility] ? [address] [place] [address] [facility] 03/03/2024 1:30 PM DEVELOPMENT WRITER Milka Soni MD GI PROCEDURE ORDERAB LES Performing Organization Address [facility]/ZIP Co de Phone Number [facility] * HCG URINE QUALITATIVE - POCT (IP) INTERFACED (03/03/2024 12:09 PM DEVELOPMENT WRITER) HCG Qual Urine Negative Negative 03/03/2024 12:16 PM DEVELOPMENT WRITER [facility] Urine URINE / Unknown 03/03/2024 1 2:09 PM DEVELOPMENT WRITER 03/03/2024 12:16 PM DEVELOPMENT WRITER Milka Soni MD LAB - POINT OF CARE ORDERABLES Performing Organization Address [facility] Co de Phone Number [facility] [address] [place] [phone], [facility] [phone] * HCG URINE QUAL POCT NOTIFICATION (03/03/2024 11:53 AM DEVELOPMENT WRITER) Comment Notification Label Only - See Separate Report 03/03/2024 1:02 PM DEVELOPMENT WRITER [facility] Urine URINE / Unknown 03/03/2024 1 1:53 AM DEVELOPMENT WRITER 03/03/2024 11:53 AM DEVELOPMENT WRITER Milka Soni MD LAB - URINALYSIS ORD ERABLES [facility] [place] [address], [facility] [phone] * QUANTIFERON-TB GOLD PLUS 4-TUBE (03/01/2024 4:29 PM DEVELOPMENT WRITER) QuantiFERON Mitogen Minus NIL 10.00 IU/mL 03/04/2024 2:04 AM DEVELOPMENT WRITER [facility] ([facility]) QuantiFERON Nil Value 0.00 IU/mL 03/04/2024 2:04 AM DEVELOPMENT WRITER [facility] ([facility]) QuantiFERON Plus TB1 Minus NIL 0.00 <=0.34 IU/mL 03/04/2024 2:04 AM DEVELOPMENT WRITER [facility] ([facility]) QuantiFERON Plus TB2 Minus NIL 0.00 <=0.34 IU/mL 03/04/2024 2:04 AM DEVELOPMENT WRITER [facility] ([facility]) QuantiFERON-TB Gold Plus Negative Negative 03/04/2024 2:04 AM [facility] ([facility]) Comment: INTERPRETIVE INFORMATION:Quantiferon TB Gold Plus Interferon gamma release is measured for specimens from each of the four collection tubes. A qualitative result (Negative, Positive, or Indeterminate) is based on interpretation of the four values: NIL, MITOGEN minus NIL (MITOGEN-NIL), TB1 minus NIL (TB1-NIL), and TB2 minus NIL (TB2-NIL). The NIL value represents nonspecific reactivity produced by the patient specimen. The MITOGEN-NIL value serves as the positive control for the patient specimen, demonstrating successful lymphocyte activity. The TB1-NIL tube specifically detects CD4+ lymphocyte reactivity, specifically stimulated by the TB1 antigens. The TB2-NIL tube detects both CD4+ and CD8+ lymphocyte reactivity, stimulated by TB2 antigens. An overall Negative result does not completely rule out TB infection. A false-positive result in the absence of other clinical evidence of TB infection is not uncommon. Refer to: Updated Guidelines for Using Interferon Gamma Release Assays to Detect Mycobacterium tuberculosis Infection -- [place], 2010 (http://www.cdc.gov/mmwr/preview/mmwrhtml/zo2193k9.htm), for more information concerning test performance in low-prevalence populations and use in occupational screening. Performed By: [facility] [address] [place] [address] Group Director Experience: Dm Mike MD, PhD CLIA Number: [id number] Blood BLOOD SPECIMEN / Unknown Lab Venipuncture / Unknown 03/01/2024 4:29 PM DEVELOPMENT WRITER 03/01/2024 5:10 PM DEVELOPMENT WRITER Mariel Short CHILD SUPPORT CASE OFFICER-DEV OPS ENGINEER LAB - CH EMISTRY ORDERABLES [facility] ([facility]) [address] [place] [address], [facility] * SMOOTH MUSCLE ANTIBODY W REFLEX TITER (03/01/2024 4:29 PM DEVELOPMENT WRITER) F-Actin Antibody IgG 9 0 - 19 Units 03/03/2024 6:31 AM DEVELOPMENT WRITER [facility] [employer] ([facility]) Comment: If F-Actin (Smooth Muscle) Antibody, IgG is negative, the Smooth Muscle Antibody titer by IFA is not performed. REFERENCE INTERVAL: F-Actin (Smooth Muscle) Antibody, IgG by ?LOUISA ??19 Units or less ....... Negative ??20 - 30 Units .......... Weak Positive-Suggest repeat ? testing in two to three weeks ? with fresh specimen. ??31 Units or greater..... Positive-Suggestive of ? autoimmune hepatitis type 1 ? or chronic active hepatitis. F-actin IgG antibodies have been shown to have increased sensitivity for autoimmune hepatitis (AIH) but lower specificity than smooth muscle antibodies (SMA). F-actin IgG antibodies can also be seen in SMA-negative disease controls (non-AIH), especially in patients with primary biliary cirrhosis and chronic hepatitis C infections. Some patients with AIH may be SMA-positive but negative for F-actin IgG. Consider testing for SMA by IFA if suspicion for AIH is strong. Performed by [facility], [address] [place] [id number] [email or web address], Junior Linares MD, Lab. Director [place] Number: [id number] Blood BLOOD SPECIMEN / Unknown Lab Venipuncture / Unknown 03/01/2024 4:29 PM DEVELOPMENT WRITER 03/01/2024 4:57 PM DEVELOPMENT WRITER Mariel Short [facility] ORDERABLES [facility]) [address] [place], [place] [id number] [place] [address] * C-REACTIVE PROTEIN (03/01/2024 4:29 PM DEVELOPMENT WRITER) Pathologist [facility] C-Reactive Protein <0.5 <=0.5 mg/dL 03/01/2024 5:38 PM DEVELOPMENT WRITER [facility] Blood BLOOD SPECIMEN / Unknown Lab Venipuncture / Unknown 03/01/2024 4:29 PM DEVELOPMENT WRITER 03/01/2024 5:04 PM DEVELOPMENT WRITER Mariel Short [facility] - CH EMISTRY ORDERABLES [address] [address], [facility] [phone] * NERI BLOOD SCREEN W/REFLEX TITER (03/01/2024 4:29 PM DEVELOPMENT WRITER) NERI IgG None Detected None Detected 03/03/2024 7:09 AM DEVELOPMENT WRITER [facility] ([facility]) Comment: If suspicion of connective tissue disease is strong and NERI EIA is negative, consider testing for NREI by IFA ([id number]). INTERPRETIVE INFORMATION: Anti-Nuclear Antibodies (NERI), IgG by LOUISA Antinuclear Antibodies (NERI), IgG by LOUISA: NERI specimens are screened using enzyme-linked immunosorbent assay (LOUISA) methodology. All LOUISA results reported as Detected are further tested by indirect fluorescent assay (IFA) using HEp-2 substrate with an IgG-specific conjugate. The NERI LOUISA screen is designed to detect antibodies against dsDNA, histones, SS-A (Ro), SS-B (La), Diallo, Diallo/INFRASTRUCTURE [employer]URITY ARCHITECT, Scl-70, Cora-1, centromeric proteins, other antigens extracted from the HEp-2 cell nucleus. NERI LOUISA assays have been reported to have lower sensitivities than NERI IFA for systemic autoimmune rheumatic diseases (SARD). Negative results do not necessarily rule out SARD. Performed by [facility], [address] [place] [address] [email or web address], Junior Linares MD, Lab. Director [facility] Number: [id number] Blood BLOOD SPECIMEN / Unknown Lab Venipuncture / Unknown 03/01/2024 4:29 PM DEVELOPMENT WRITER 03/01/2024 4:57 PM DEVELOPMENT WRITER Mariel Short CHILD SUPPORT CASE OFFICER-DEV OPS ENGINEER LAB - CH EMISTRY ORDERABLES [facility] [employer] ([facility]) [address] [place] [address], [facility] * (ABNORMAL) VITAMIN D 25-HYDROXY (03/01/2024 4:29 PM DEVELOPMENT WRITER) Vitamin D, 25 Hydroxy 10.3(L) 30.0 - 80.0 ng/mL 03/01/2024 6:09 PM DEVELOPMENT WRITER [facility] Comment: The recommendations for 25-Hydroxy Vitamin D clinical decision points are as follows: ? Deficient: ? <20.0 ng/mL ? Insufficient: ? 20.0 - 29.9 ng/mL ? Sufficient: ? 30.0 - 100.0 ng/mL ? Potential Toxicity: ??>100 ng/mL Reference: The Endocrine Society Clinical Practice Guidelines. 2011 If the 25-Hydroxy Vitamin D results are inconsitent with clinical evidence, it is recommended that follow-up testing using a method such as LC/MS/MS be performed to confirm the result. ? Blood BLOOD SPECIMEN / Unknown Lab Venipuncture / Unknown 03/01/2024 4:29 PM DEVELOPMENT WRITER 03/01/2024 5:04 PM DEVELOPMENT WRITER Mariel Short CHILD SUPPORT CASE OFFICER-DEV OPS ENGINEER LAB - CH EMISTRY ORDERABLES Performing Organization Address City/State/[facility] Co de Phone Number [facility] [address] [place] [address], [facility] [phone] * (ABNORMAL) CBC W/ DIFFERENTIAL (03/01/2024 4:29 PM DEVELOPMENT WRITER) WBC 8.7 4.0 - 10.7 x10E9/L 03/01/2024 6:04 PM [facility] RBC Count 4.82 3.90 - 5.20 x10E12/L 03/01/2024 6:04 PM [facility] Hemoglobin 10.8(L) 11.9 - 15.8 g/dL 03/01/2024 6:04 PM [facility] Hematocrit 33.7(L) 34.8 - 46.1 % 03/01/2024 6:04 PM [facility] MCV 69.9(L) 80.0 - 98.0 fL 03/01/2024 6:04 PM [facility] MCH 22.4(L) 26.7 - 33.6 pg 03/01/2024 6:04 PM [facility] MCHC 32.0 31.7 - 36.3 g/dL 03/01/2024 6:04 PM [facility] RDW-CV 18.7(H) 11.3 - 14.8 % 03/01/2024 6:04 PM [facility] Platelet Count 205 150 - 420 x10E9/L 03/01/2024 6:04 PM [facility] Neutrophil % 55.9 41.0 - 74.0 % 03/01/2024 6:04 PM [facility] Lymphocyte % 34.4 17.0 - 47.0 % 03/01/2024 6:04 PM [facility] Monocyte % 7.2 3.0 - 11.0 % 03/01/2024 6:04 PM [facility] Eosinophil % 1.6 0.0 - 7.0 % 03/01/2024 6:04 PM [facility] Basophil % 0.6 0.0 - 1.6 % 03/01/2024 6:04 PM [facility] Immature Granulocytes % 0.3 0.0 - 1.0 % 03/01/2024 6:04 PM [facility] Neutrophil Absolute 4.87 1.60 - 7.50 x10E9/L 03/01/2024 6:04 PM [facility] Lymphocyte Absolute 3.00 1.00 - 4.40 x10E9/L 03/01/2024 6:04 PM [facility] Monocyte Absolute 0.63 0.15 - 1.00 x10E9/L 03/01/2024 6:04 PM [facility] Eosinophil Absolute 0.14 0.00 - 0.60 x10E9/L 03/01/2024 6:04 PM [facility] Basophil Absolute 0.05 0.00 - 0.13 x10E9/L 03/01/2024 6:04 PM [facility] Blood BLOOD SPECIMEN / Unknown Lab Venipuncture / Unknown 03/01/2024 4:29 PM DEVELOPMENT WRITER 03/01/2024 5:04 PM DEVELOPMENT WRITER Mariel Short CHILD SUPPORT CASE OFFICER-DEV OPS ENGINEER LAB - HE MATOLOGY ORDERABLES [facility] [address] [place] [phone], [facility] [phone] * (ABNORMAL) COMPREHENSIVE METABOLIC PANEL (03/01/2024 4:29 PM DEVELOPMENT WRITER) Pathologist [facility] BUN 12 7 - 26 mg/dL 03/01/2024 5:37 PM [facility] Creatinine 0.55(L) 0.56 - 0.96 mg/dL 03/01/2024 5:37 PM [facility] Sodium 138 136 - 145 mmol/L 03/01/2024 5:37 PM [facility] Potassium 4.2 3.5 - 4.5 mmol/L 03/01/2024 5:37 PM [facility] Chloride 108(H) 98 - 107 mmol/L 03/01/2024 5:37 PM [facility] CO2 26 22 - 29 mmol/L 03/01/2024 5:37 PM [facility] Glucose 88 70 - 99 mg/dL 03/01/2024 5:37 PM [facility] Calcium 9.1 8.4 - 10.2 mg/dL 03/01/2024 5:37 PM [facility] Protein Total 7.4 6.0 - 8.3 g/dL 03/01/2024 5:37 PM [facility] Albumin 4.1 3.4 - 5.0 g/dL 03/01/2024 5:37 PM [facility] Bilirubin Total 0.8 0.2 - 1.2 mg/dL 03/01/2024 5:37 PM [facility] Alkaline Phosphatase 42 40 - 150 U/L 03/01/2024 5:37 PM [facility] ALT 12 5 - 55 U/L 03/01/2024 5:37 PM [facility] AST 13 5 - 34 U/L 03/01/2024 5:37 PM [facility] Anion Gap 4(L) 6 - 16 03/01/2024 5:37 PM [facility] BUN/Creatinine Ratio 22 7 - 23 03/01/2024 5:37 PM [facility] Osmolality Calculated 285 275 - 295 mOsm/kg 03/01/2024 5:37 PM [facility] Albumin/Globulin Ratio 1.2 1.1 - 2.3 03/01/2024 5:37 PM [facility] eGFR by CKD-EPI >90 >=90 mL/min/1.7 3 m2 03/01/2024 5:37 PM [facility] Blood BLOOD SPECIMEN / Unknown Lab Venipuncture / Unknown 03/01/2024 4:29 PM DEVELOPMENT WRITER 03/01/2024 5:04 PM DEVELOPMENT WRITER Mariel Short CHILD SUPPORT CASE OFFICER-DEV OPS ENGINEER LAB - CH EMISTRY ORDERABLES Performing Organization Address [facility] de Phone Number [facility] [address] [place] [phone], [facility] [phone] * (ABNORMAL) HEPATITIS B SURFACE ANTIBODY (03/01/2024 4:29 PM DEVELOPMENT WRITER) Hepatitis B Virus Surface Antibody Reactive( A) Non-react clif 03/01/2024 5:52 PM DEVELOPMENT WRITER [facility] Comment: > 12 mIU/mL Hepatitis B surface Antibody (HBsAb). Reactive for HBsAb - individual is considered immune to Hepatitis B Virus infection. Hepatitis B Surface Antibody Quantitative 101.7(H) <8.0 mIU/mL 03/01/2024 5:52 PM DEVELOPMENT WRITER [facility] Comment: Hepatitis B Surface Antibody Numeric Result Interpretation: ? Nonreactive: ?<8.0 mIU/mL ? Indeterminate: ??8.0 - 12.0 mIU/mL ? Reactive: ?>12.0 mIU/mL ? Blood BLOOD SPECIMEN / Unknown Lab Venipuncture / Unknown 03/01/2024 4:29 PM DEVELOPMENT WRITER 03/01/2024 4:57 PM DEVELOPMENT WRITER Mariel Short APRN-DEV OPS ENGINEER LAB - CH EMISTRY ORDERABLES Performing Organization Address [facility] de Phone Number [facility] [address] [place] [phone], [facility] [phone] * HEPATITIS B CORE ANTIBODY TOTAL (03/01/2024 4:29 PM DEVELOPMENT WRITER) HBc Antibody Total Non-reacti ve Non-reacti ve 03/01/2024 5:52 PM DEVELOPMENT WRITER [facility] Blood BLOOD SPECIMEN / Unknown Lab Venipuncture / Unknown 03/01/2024 4:29 PM DEVELOPMENT WRITER 03/01/2024 4:57 PM DEVELOPMENT WRITER Mraiel Short [facility] LAB - CH EMISTRY ORDERABLES [facility] [address] [place] [phone], [facility] [phone] * HEPATITIS B SURFACE ANTIGEN W RFLX CONFIRMATION (03/01/2024 4:29 PM DEVELOPMENT WRITER) Hepatitis B Virus Surface Antigen Non-reacti ve Non-reacti ve 03/01/2024 5:52 PM DEVELOPMENT WRITER [facility] Blood BLOOD SPECIMEN / Unknown Lab Venipuncture / Unknown 03/01/2024 4:29 PM DEVELOPMENT WRITER 03/01/2024 4:57 PM DEVELOPMENT WRITER Mariel Short CHILD SUPPORT CASE [facility] [place] EMISTRY ORDERABLES Performing Organization Address City/[facility]/ZIP Co de Phone Number [address] [address], [facility] [phone] * (ABNORMAL) FOLATE (03/01/2024 4:29 PM DEVELOPMENT WRITER) Pathologist [facility] Folate 5.9(L) 7.0 - 31.4 ng/mL 03/01/2024 6:09 PM DEVELOPMENT WRITER [facility] Blood BLOOD SPECIMEN / Unknown Lab Venipuncture / Unknown 03/01/2024 4:29 PM DEVELOPMENT WRITER 03/01/2024 5:04 PM DEVELOPMENT WRITER Mariel Short CHILD SUPPORT [facility] EMISTRY ORDERABLES [address] [address], [facility] [phone] * (ABNORMAL) VITAMIN B12 (03/01/2024 4:29 PM DEVELOPMENT WRITER) Vitamin B12 822(H) 213 - 816 pg/mL 03/01/2024 6:09 PM DEVELOPMENT WRITER [facility] Blood BLOOD SPECIMEN / Unknown Lab Venipuncture / Unknown 03/01/2024 4:29 PM DEVELOPMENT WRITER 03/01/2024 5:04 PM DEVELOPMENT WRITER Mariel Shrot [facility] EMISTRY ORDERABLES Performing Organization Address City/[facility]/ZIP Co de Phone Number [facility] [address] [place] [address], [facility] [phone] * (ABNORMAL) IRON + TRANSFERRIN PANEL [w/Transferrin Sat % + TIBC] (03/01/2024 4:29 PM DEVELOPMENT WRITER) [facility] [place] 88 40 - 150 ug/dL 03/01/2024 5:33 PM [facility] Transferrin 185 174 - 382 mg/dL 03/01/2024 5:33 PM [facility] Transferrin Saturation % 38 16 - 50 % 03/01/2024 5:33 PM [facility] TIBC Calculated 231(L) 240 - 450 ug/dL 03/01/2024 5:33 PM [facility] Blood BLOOD SPECIMEN / Unknown Lab Venipuncture / Unknown 03/01/2024 4:29 PM DEVELOPMENT WRITER 03/01/2024 4:57 PM DEVELOPMENT WRITER Mariel Short [facility] EMISTRY ORDERABLES Performing Organization Address City/[facility]/ZIP Co de Phone Number [facility] [address] [place] [address], [place] [phone] * HEPATITIS C ANTIBODY (03/01/2024 4:29 PM DEVELOPMENT WRITER) Pathologist [facility] Hepatitis C Antibody Non-react clif Non-reac tive 03/01/2024 5:52 PM [facility] Comment:Hepatitis C Antibody screen indicates no serologic evidence of past or current infection with Hepatitis C Virus. Patients with unexplained liver disease who are immunocompromised or suspected of having acute Hepatitis C infection may benefit from Nucleic Acid Test (JULIA) for Hepatitis C Viral RNA to confirm Hepatitis C status. Blood BLOOD SPECIMEN / Unknown Lab Venipuncture / Unknown 03/01/2024 4:29 PM DEVELOPMENT WRITER 03/01/2024 4:57 PM DEVELOPMENT WRITER Mariel Short APRNK[facility] - CH EMISTRY ORDERABLES Performing Organization Address [facility] Co de Phone Number [address] [address], [facility] [phone] * (ABNORMAL) FERRITIN (03/01/2024 4:29 PM DEVELOPMENT WRITER) Ferritin 355(H) 13 - 204 ng/mL 03/01/2024 5:52 PM DEVELOPMENT WRITER [facility] Blood BLOOD SPECIMEN / Unknown Lab Venipuncture / Unknown 03/01/2024 4:29 PM DEVELOPMENT WRITER 03/01/2024 4:57 PM DEVELOPMENT WRITER Mariel [facility] - CH EMISTRY ORDERABLES Performing Organization Address [facility] Co de Phone Number [address] [address], [place] [phone] * [place] LIVER ELASTOGRAPHY (03/01/2024 3:55 PM DEVELOPMENT WRITER) Narrative Eligio Ayala MD - 03/01/2024 3:55 PM DEVELOPMENT WRITER Eligio Ayala MD ? 03/03/2024 ??6:26 PM Diagnosis: Hepatic Fibrosis RN verified patient NPO for prior 3 hours. Procedure explained. Date of Exam: 03/01/2024 Liver Stiffness: (LSM, kPa) median: ??4.2 IQR/Median% (ideally < 30%): ??7% CAP (controlled attenuation parameter): ??342 Technical Difficulty: None Ordering Provider: ELI Chávez Phone Fax ?? Fibroscan interpretation: I have personally reviewed the Fibroscan report and associated tracings. The calculated Liver Stiffness Measurement (LSM, kPa) indicates that: The probability of advanced liver fibrosis is: low. The loss of ultrasound signal, (controlled attenuation parameter, CAP [dB/m]), indicates that the probability of hepatic steatosis is: high. Eligio Alfonso MD The following criteria are used to indicate the probability of advanced (stage 3-4) fibrosis: < 7.0 kPa: low 7.0-8.9 kPa: low to moderate 9.0-14.9 kPa: moderate 15-20 kPa: high > 20 kPa: very high Liver stiffness > 20 kPa is also associated with a high probability of complications of portal hypertension including varices and ascites. Liver stiffness > 50 kPa is associated with a high risk of variceal bleeding. These interpretations are based on the following published data: Campos PJ, Elle M, Trice M, et al. Accuracy of FibroScan controlled attenuation parameter and liver stiffness measurement in assessing steatosis and fibrosis in patients with nonalcoholic fatty liver disease. Gastroenterology 2019;156:5172-1374. Zeeshan MS, Carmina R, Van Yu ML, et al. Vibration-controlled transient elastography to assess fibrosis and steatosis in patients with nonalcoholic fatty liver disease. Clin Gastroenterol Hepatol 2019;17:156-163. Note that scores have been developed that incorporate the Fibroscan liver stiffness measurement from large cohorts of patients with liver biopsies to further refine the ability of Fibroscan to identify patients ??with MASH and advanced fibrosis. These include the FAST (Fibroscan-AST) score (Rodolfo, 202) and the Agile3+ and Agile4 scores (Jazmin, 202). Rodolfo TA, Van Natta ML, Sotelo M, Rocco A, et al. Validation of the accuracy of the FAST score for detecting patients with at-risk nonalcoholic steatohepatitis (PARADA) in a [place] cohort and comparison to other non-invasive algorithms. PLoS ONE (2021) 17: [id number]. Jazmin AJ, Sara J, Primo ZM, et al. Enhanced diagnosis of advanced fibrosis and cirrhosis in individuals with NAFLD using FibroScan-based Agile scores. J Hepatol (2022) 78: 247-259. Fibroscan LSM can also be used with laboratory parameters without formulas to assess prognosis. According to the Baveno-VII criteria (de Franchis, 202), Fibroscan LSM <=15 kPa plus a platelet count of >=[id number]/L rules out clinically significant portal hypertension (sensitivity and negative predictive value >90%) in patients with compensated advanced chronic liver disease. de Matt R, Norman J, Pavan-Rhonda G, Sanjeev T, Douglas Armas on behalf of the [facility] Faculty. [facility]--Renewing consensus in portal hypertension. J Hepatol (2021) 76: 959-974 Assessing the likelihood of advanced fibrosis in patients with intermediate liver stiffness measurement (LSM) by Fibroscan (e.g., 8-15 kPa) can be improved by also calculating the FIB-4 score (Ashly et al. Hepatology Communications 2019;3:5059-3359) or NAFLD Fibrosis score (Rodgers et al. Clinical Gastroenterology and Hepatology 2019;17:3099-6707 using ??routine clinical data. Note: 1. Fibroscan cannot reliably identify earlier stages of fibrosis (ie distinguish F0 from F1 and F2) and thus a histologic stage cannot be predicted from the Fibroscan reading. 2. Liver stiffness can be increased by factors other than fibrosis including passive congestion, infiltrative processes, active alcoholism, recent moderate alcohol consumption in the 2 weeks before the exam, ??biliary obstruction and marked inflammation. The interpretation of the Fibroscan result provided above may not have taken such clinical factors into account. Disease etiology also influences Fibroscan cutoff values for fibrosis stages and the following cutoffs have been proposed (Karthik et al, Clin Gastro Hepatol 2015; 13:27-36): Cutoffs for Stage 3 and Stage 4 fibrosis respectively: Hepatitis B: >9 and >11.7 kPa Hepatitis C: >9.5 and >12.5 kPa HCV-HIV: >11 and >14 kPa Cholestatic liver diseases: >10 and >17.9 kPa MASLD/MASH: >10 and >14 kPa CAP estimates of steatosis: normal <200 dB/m mild 200 to 250 dB/m moderate 250-290 dB/m substantial > 290 dB/m (Note that Fibroscan is not a quantitative measure of liver fat.) These criteria are estimates and may change as additional supporting data becomes available. (This additional interpretive data was last updated 07/20/22.) [email or web address] Mariel Short CHILD SUPPORT CASE OFFICER-DEV OPS ENGINEER PROCEDUR E/MINOR SURGICAL ORDERABLES * MAMMO BILAT SCREENING W CLEMENTE (02/09/2024 10:58 AM DEVELOPMENT WRITER) Anatomical Region Laterality Modality Breast Bilateral Mammography 02/09/2024 10:5 8 AM DEVELOPMENT WRITER Impressions 02/09/2024 11:02 AM DEVELOPMENT WRITER IMPRESSION: ??No mammographic evidence of malignancy. Extremely dense breast parenchyma. RECOMMENDATION: 1. Screening mammography in one year, pending no interval breast concerns. 2. Annual screening breast MRI is recommended, given the history of a BRCA2 gene mutation, according to the [place] [employer] guidelines. Her next exam is due in July 2024. Patient was notified of the results at the time of the exam and will see Dr. Dueñas in the breast clinic today. Patient will also receive the exam results by lay letter. OVERALL ASSESSMENT: ??BI-RADS CATEGORY 1: NEGATIVE. > Interpreting Provider: Funmilayo Vidal MD, FACR on 02/09/2024 11:02 AM Narrative 02/09/2024 11:02 AM DEVELOPMENT WRITER EXAMINATIONS: ??BILATERAL DIGITAL SCREENING MAMMOGRAM AND BILATERAL BREAST TOMOSYNTHESIS LOCATION: [facility] EXAM DATE: ??02/09/2024 HISTORY: ??Screening. Patient has a BRCA2 gene mutation with a lifetime risk of developing breast cancer greater than 20%. Patient reports history of ovarian cancer in her mother. COMPARISON: Comparison is made to prior mammograms back to 2017. TECHNIQUE: Tomosynthesis (3D) and reconstructed synthetic 2-D images acquired and reviewed in the bilateral craniocaudal and mediolateral oblique projections. ??A total of 5 images obtained. Transpara AI was utilized in the interpretation. BREAST PARENCHYMAL COMPOSITION: Category D: The breasts are extremely dense which lowers the sensitivity of mammography. FINDINGS: There are no suspicious findings or evidence of malignancy on mammography. There is no significant change from the prior. ?? Linda Dueñas MD MAMMO ORDERABLES from Last 3 Months Care Teams Modeling Agent Relationship Specialty Start Date End Date Demar Campbell MD [address] [place] [address] PCP - General 08/08/17
--- OUTSIDE RECORDS SUMMARY | 2024-03-19 00:49 | XMS_ITS | Continuity of Care Document ---
Author Organization [facility] [place] Address [address] [place] [address] Care Team Providers Care Special Education Supervisor Name Role Phone GREGORY AYOUB Primary Care Provider [phone] Assessment Encounter Date Assessment Date Assessment LastModified [...] Not available Not available Not available Lab None recorded. Referral None recorded. Procedures None recorded. Surgeries salpingec jose enrique, laparosco pic (SURG) [address] [facility], [facility], [address], 03/15/2024 09:24:01 oophorect shan (SURG) 2023 024 [facility], [address], [address], 03/12/2024 12:42:57 Imaging None recorded. Medication Orders None recorded. Patient TargetsNo targets recorded. Patient InstructionsNo instructions recorded. Reason for Referral None Reported. Results Created Date Observation Date Name Description Value Unit Range Abnormal Flag Note LastModifiedBy Organization Detail LastModifiedTime 02/17/20 24 02/17/2024 US, trans vagin al No observ ation record ed. [facility] [address], [place], [address], 02/17/2024 18:19:16 02/17/20 24 02/17/2024 US, trans vagin al No observ ation record ed. [email or web address], [place], [address], 02/18/2024 15:04:30 Result Notes None recorded. Problems Name Problem SNOMED Code Status Onset Date Resolution Date Notes Provider Name and Address Organization Details Recorded Time Disorder of labor / delivery Completed 201607/17/2020 Twin pregnanc y, dichorio heather/diam niotic, first trimeste r;Practi ce ID: 0001 Hanna carr, [facility] 15:04:09 Antenata l screenin g Completed 201607/17/2020 Encounte r for antenata l screenin g for nuchal transluc ency;Pra ctice ID: 0001 Hanna carr, [facility] 15:03:40 Gestatio n period, 13 weeks [id number] Completed 201607/17/2020 13 weeks gestatio n of pregnanc y;Practi ce ID: 0001 Hanna carr, [facility] 15:05:01 Normal pregnanc y in multigra kamari [id number] Completed 201607/17/2020 Encounte r for suprvsn of normal pregnanc y, second trimeste r;Practi ce ID: 0001 Hanna carr, [facility] 15:16:28 Spotting per vagina in pregnanc y [id number] Completed 201607/17/2020 Spotting complica ting pregnanc y, second trimeste r;Practi ce ID: 0001 Hanna carr, [facility] 15:21:34 Gestatio n period, 17 weeks [id number] Completed 201607/17/2020 17 weeks gestatio n of pregnanc y;[facility]i ce [facility]:05:03 Disorder of labor / delivery Completed 201607/17/2020 Twin pregnanc y, dichorio heather/diam niotic, second trimeste r;Practi ce ID: 0001 [facility] 15:04:12 Antenata l screenin g for malforma tion Completed 201607/17/2020 Encounte r for antenata l screenin g for malforma tions;Pr actice ID: 0001 [facility] 15:03:43 Gestatio n period, 19 weeks [id number] Completed 201607/17/2020 19 weeks gestatio n of pregnanc y;Practi ce ID: 0001 [facility] 15:05:05 Prematur e labor [id number] Completed 201707/17/2020 labor without delivery , second trimeste r;Practi ce ID: 0001 [facility] 15:17:06 Gestatio n period, 22 weeks [id number] Completed 201707/17/2020 22 weeks gestatio n of pregnanc y;Practi ce ID: 0001 [facility] 15:14:39 Complica tion of pregnanc y, childbir th and/or puerperi [id number] Completed 201707/17/2020 Oth diseases and conditio ns compl preg/chl dbrth;Pr actice ID: 0001 [facility] 15:21:44 Gestatio n period, 23 weeks [id number] Completed 201707/17/2020 23 weeks gestatio n of pregnanc y;Practi ce ID: 0001 [facility] 15:05:[address] Concept Completed 201707/17/2020 Decrease d movement s, second trimeste r, unsp;Pra ctice ID: 0001 [facility] 15:17:23 Clinical finding Completed 201707/17/2020 Pain in right leg;Prac batsheva ID: 0001 [facility] 15:04:43 Clinical finding Completed 201707/17/2020 Pain in left leg;Prac batsheva ID: 0001 Hanna Knutson [facility] 15:04:45 Gestatio n period, 28 weeks [id number] Completed 201707/17/2020 28 weeks gestatio n of pregnanc y;Practi ce ID: 0001 Hanna Knutson [facility] 15:14:41 Disorder of labor / delivery Completed 201707/17/2020 Twin pregnanc y, dichorio heather/diam niotic, third trimeste r;Practi ce ID: 0001 [facility] 15:04:14 Pelvic and perineal pain [id number] Completed 201707/17/2020 Pelvic and perineal pain;Pra ctice ID: 0001 [facility] 15:16:[address] Concept Completed 201707/17/2020 Decrease d movement s, third trimeste r, fetus 1;Practi ce ID: 0001 Hanna carr, [facility] 15:17:[address] Concept Completed 201707/17/2020 Decrease d movement s, third trimeste r, fetus 2;Practi ce ID: 0001 Hanna carr [facility] 15:17:27 Gestatio n period, 31 weeks [id number] Completed 201707/17/2020 31 weeks gestatio n of pregnanc y;Practi ce ID: 0001 Hanna carr, [facility] 15:14:43 finding Completed 201707/17/2020 Matern care for oth or susp poor fetl grth, third tri, unsp;Pra ctice ID: 0001 [facility] 15:04:41 Gestatio n period, 32 weeks [id number] Completed 201707/17/2020 32 weeks gestatio n of pregnanc y;Practi ce ID: 0001 [facility] 15:14:45 Gestatio n period, 33 weeks [id number] Completed 201707/17/2020 33 weeks gestatio n of pregnanc y;Practi ce ID: 0001 Hanna carr, [facility] 15:14:47 Oligohyd ramnios Completed 201707/17/2020 Oligohyd ramnios, third trimeste r, not applicab le or unsp;Pra ctice ID: 0001 Hanna carr, [facility] 15:04:50 Urinary tract infectio us disease [id number] Completed 201707/17/2020 Urinary tract infectio n, site not specifie d;Practi ce ID: 0001 Hanna carr, [facility] 15:21:46 Lochia finding Completed 201707/17/2020 Encounte r for routine postpart um follow-u p;Leonti ce ID: 0001 Hanna Knutson [facility] 15:16:15 Subacute and chronic vaginiti s [id number] Completed 201707/17/2020 Subacute and chronic vaginiti s;Practi ce ID: 0001 Hanna Knutson [facility] 15:21:36 Pain Completed 201707/17/2020 Upper abdomina l pain, unspecif ied;Leon batsheva ID: 0001 Hanna Knutson [facility] 15:16:30 Imaging of abdomen abnormal [id number] Completed 201707/17/2020 Abn findings on dx imaging of abd regions, inc retroper iton;Pra ctice ID: 0001 Hanna Knutson [facility] 15:16:05 Genetic predispo sition [id number] Completed 201707/17/2020 Genetic suscepti bility to malignan t neoplasm of ovary;Pr actice ID: 0001 Hanna Knutson [facility] 15:04:59 Family history of malignan t neoplasm of ovary 817980985 Completed 201707/17/2020 Family history of malignan t neoplasm of ovary;Pr actice ID: 0001 Hanna Knutson [facility] 15:05:23 Foreign body in cervix 816571705 Completed 201707/17/2020 Foreign body in uterus, initial encounte r;Leonti ce ID: 0001 Hanna Knutson [facility] 15:04:57 Insertio n of intraute rine contrace ptive device Completed 201707/17/2020 Encounte r for insertio n of intraute rine contrace ptive device;P ractice ID: 0001 Hanna carr [facility] 15:16:10 Pregnanc y test negative [id number] Completed 201707/17/2020 Encounte r for pregnanc y test, result negative ;Practic e ID: 0001 Hanna carr [facility] 15:17:03 Acute vaginiti s [id number] Completed 201707/17/2020 Acute vaginiti s;Practi ce ID: 0001 Hanna carr [facility] 15:03:[address] Concept Completed 201707/17/2020 Encntr for claims manager exam (general ) (routine ) w/o abn findings ;Practic e ID: 0001 Hanna carr [facility] 15:17:30 Mass of right breast [id number] Completed 201807/17/2020 Unspecif ied lump in the right breast, unspecif ied quadrant ;Practic e ID: 0001 Hanna carr [facility] 15:16:18 Lesion of ovary Completed 201807/17/2020 Other ovarian cyst, right side;Pra ctice ID: 0001 Hanna carr [facility] 15:04:07 Cyst of ovary Completed 201807/17/2020 Unspecif ied ovarian cyst, unspecif ied side;Pra ctice ID: 0001 Hanna carr [facility] 15:03:50 Family planning surveill ance Completed 201107/17/2020 Contrace ptive surveill ance, unspecif ied;Chace rded Elsewher e: No Locat ion: Cesra goddard [facility] S ource: EHR Head Pastry Chef heather: N Practi ce ID: 0001 Melchor lable Time: 02:00:00 PM Hanna Knutson [facility] 1 15:04:33 Clinical finding Completed 201707/17/2020 Presence of (intraut erine) contrace ptive device;R ecorded Elsewher e: No Locat ion: [facility] S ource: EHR Head Pastry Chef heather: N Leonti ce ID: 0001 Melchor lable Time: 02:00:00 PM Hanna carr [facility] 1 15:03:48 Removal of intraute rine device Completed 201507/17/2020 Encounte r for removal of intraute rine contrace ptive device;R ecorded Elsewher e: No Locat ion: [facility] S ource: EHR Head Pastry Chef heather: N Leonti ce ID: 0001 Melchor lable Time: 05:00:00 PM Hanna Knutson [facility] 1 15:17:09 Uses IUD (intraut erine device) contrace ption [id number] Completed 201407/17/2020 IUD check;Re corded Elsewher e: No Locat ion: [facility] S ource: EHR Head Pastry Chef heather: N Leonti ce ID: 0001 Melchor lable Time: 01:45:00 PM Hanna Knutson [facility] 1 15:16:13 Breast lump [id number] Completed 201607/17/2020 Unspecif ied lump in breast;R ecorded Elsewher e: No Locat ion: [facility] S ource: EHR Head Pastry Chef heather: N Leonti ce ID: 0001 Melchor lable Time: 09:30:00 AM Hanna Knutson [facility] 1 15:03:45 Speciali zed medical examinat ion Completed 201407/17/2020 Well woman check;Re corded Elsewher e: No Locat ion: [facility] S ource: EHR Head Pastry Chef heather: N Practi ce ID: 0001 Melchor lable Time: 01:45:00 PM Hanna carr [facility] 15:21:31 Infectio n screenin g Completed 201707/17/2020 Encounte r for screenin g for oth infec/pa rastc diseases ;Recorde d Elsewher e: No Locat ion: [facility] S ource: EHR Head Pastry Chef heather: N Practi ce ID: 0001 Melchor lable Time: 03:15:00 PM Hanna carr [facility] 15:16:08 Screenin g for malignan t neoplasm of cervix Completed 201707/17/2020 Encounte r for screenin g for malignan t neoplasm of cervix;R ecorded Elsewher e: No [facility]: EHR Head Pastry Chef heather: N Practi ce ID: 0001 Melchor lable Time: 03:15:00 PM Hanna Knutson [facility] 15:17:18 Depressi ve disorder [id number] Completed 201107/17/2020 Depressi on;Recor ded Elsewher e: No Locat ion: [facility] S ource: EHR Head Pastry Chef heather: N Practi ce ID: 0001 Melchor lable Time: 02:00:00 PM Hanna Knutson [facility] 1 15:04:02 Syphilis test finding [id number] Completed 201607/17/2020 Encntr screen for infectio ns w sexl mode of transmis s;Record ed Elsewher e: No Locat ion: [facility] S ource: EHR Head Pastry Chef heather: N Practi ce ID: 0001 Melchor lable Time: 03:00:00 PM Hanna Knutson [facility] 15:21:38 Routine antenata l care Completed 201007/17/2020 Supervis ion of other normal pregnanc y;[facility]:17:16 Excessiv e growth affectin g manageme nt of mother [id number] Completed 201007/17/2020 GROWTH LARGE LGA;Prac batsheva ID: 0001 [facility] 15:04:25 Poor growth affectin g manageme nt [id number] Completed 201007/17/2020 GROWTH POOR SGA;Prac batsheva ID: 0001 [facility] 15:16:55 Delivery normal [id number] Completed 201007/17/2020 Normal delivery ;Practic e ID: 0001 [facility] 15:04:00 Single live [id number] Completed 201007/17/2020 Mother with single liveborn ;Practic e ID: 0001 [facility] 15:17:21 Postpart um care Completed 201007/17/2020 Routine postpart um follow-u p;Practi ce ID: 0001 [facility] 15:16:58 Ill-defi reece intestin al infectio n Completed 201007/17/2020 No Show Fee;Prac batsheva ID: 0001 [facility] 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 15:16:25 Vaginiti s and vulvovag initis Completed 201107/17/2020 Vaginiti s and vulvovag initis, unspecif ied;Prac batsheva ID: 0001 Hanna carr [facility] 15:21:48 Nausea and vomiting 48153830 Completed 201607/17/2020 Nausea with vomiting , unspecif ied;Chace rded Elsewher e: No [facility]: EHR Head Pastry Chef heather: N Practi ce ID: 0001 Melchor lable Time: 03:00:00 PM Hanna Knutson [facility] 15:16:22 Evaluati on finding Completed 201607/17/2020 Hematuri a, unspecif ied;Chace rded Elsewher e: No [facility]: EHR Head Pastry Chef heather: N Practi ce ID: 0001 Melchor lable Time: 09:30:00 AM Hanna carr [facility] 15:04:16 Disorder of breast [id number] Completed 201807/17/2020 Disorder of breast, unspecif ied;Chace rded Elsewher e: No Locat ion: [facility] S ource: EHR Head Pastry Chef heather: N Practi ce ID: 0001 Melchor lable Time: 10:30:00 AM Hanna carr [facility] 15:04:05 Threaten ed miscarri age [id number] Completed 201607/17/2020 Threaten ed ;Recorde d Elsewher e: No Locat ion: [facility] S ource: EHR Head Pastry Chef heather: N Practi ce ID: 0001 Melchor lable Time: 05:00:00 PM Hanna carr [facility] 15:21:40 Vaginola bial hernia Completed 201707/17/2020 Other specifie d noninfla mmatory disorder s of vagina;R ecorded Elsewher e: No Locat ion: Latricemaxi rupesh [facility] S ource: EHR Head Pastry Chef heather: N Leonti ce ID: 0001 Melchor lable Time: 10:15:00 AM Hanna Knutson [facility] 1 15:21:51 Malaise and fatigue [id number] Completed 201207/17/2020 Fatigue / Malaise; Recorded Elsewher e: No [facility]: EHR Head Pastry Chef heather: Lola Quinteroti ce ID: 0001 Melchor lable Time: 05:00:00 PM Hanna Knutson [facility] 1 15:16:20 Finding of defecati on Completed 201607/17/2020 Constipa tion;Rec orded Elsewher e: No [facility] Lola Quinteroti ce ID: 0001 Melchor lable Time: 03:00:00 PM Hannaeliza Knutson [facility] 1 15:04:48 Abdomina l pain [id number] Completed 201107/17/2020 Abdomina l pain, other specifie d site;Rec orded Elsewher e: No Locat ion: [facility] S ource: BANNER Head Pastry Chef heather: Lola Quinteroti ce ID: 0001 Melchor lable Time: 11:15:00 AM Hanna Knutson [facility] 1 15:03:32 Exposure to sexually transmis sible disorder Completed 201807/17/2020 Exposure to infectio n with a predomin antly sexual mode of transmis shyann;Rec orded Elsewher e: No [facility]: EHR Head Pastry Chef heather: Lola Quinteroti ce ID: 0001 Melchor lable Time: 01:45:00 PM Hanna Knutson [facility] 15:04:28 Finding of trunk structur e [id number] Completed 201107/17/2020 Abdomina l or pelvic swelling , mass, or lump, other specifie d site;Rec orded Elsewher e: No Locat ion: [facility] S ource: EHR Head Pastry Chef heather: N Practi ce ID: 0001 Melchor lable Time: 08:30:00 AM Hanna Knutson [facility] 15:04:54 Female genital organ symptoms [id number] Completed 201207/17/2020 Unspecif ied symptom associat ed with female genital organs;R ecorded Elsewher e: No Locat ion: [facility] S ource: EHR Head Pastry Chef heather: N Practi ce ID: 0001 Melchor lable Time: 01:45:00 PM Hannaeliza Knutson [facility] 15:04:38 Pregnanc y detectio n examinat ion Completed 201607/17/2020 Encounte r for pregnanc y test, result positive ;Recorde d Elsewher e: No Locat ion: [facility] S ource: EHR Head Pastry Chef heather: N Practi ce ID: 0001 Melchor lable Time: 03:00:00 PM Hanna carr [facility] 15:17:01 Gestatio n period, 9 weeks [id number] Completed 201607/17/2020 9 weeks gestatio n of pregnanc y;Record ed Elsewher e: No Locat ion: [facility] S ource: EHR Head Pastry Chef heather: N Practi ce ID: 0001 Melchor lable Time: 10:00:00 AM Hanna Knutson [facility] 15:14:49 Retained placenta , without hemorrha ge [id number] Completed 201707/17/2020 Retained placenta w/o hemorrha ge;Recor ded Elsewher e: No Locat ion: [facility] S ource: EHR Head Pastry Chef heather: N Daryl ce ID: 0001 Melchor lable Time: 01:30:00 PM Hanna carr [facility] 1 15:17:13 Amenorrh ea [id number] Completed 201607/17/2020 Amenorrh ea, unspecif ied;Chace rded Elsewher e: No Locat ion: [facility] S ource: EHR Head Pastry Chef heather: N Leonti ce ID: 0001 Melchor lable Time: 03:00:00 PM Hanna carr [facility] 1 15:03:37 Delayed delivery of second twin, triplet etc Completed 201707/17/2020 Delayed delivery of other multiple gestatio n fetus;Re corded Elsewher e: No Locat ion: [facility] S ource: EHR Head Pastry Chef heather: N Daryl ce ID: 0001 Melchor lable Time: 10:00:00 AM Hanna carr [facility] 1 15:03:54 BRCA2 gene mutation detected [id number] Active 2022 Lexx Barry MD [address], [place], [address], [facility] 3 16:17:40 Problem Notes None recorded. Procedures Surgical History Date Name Laterality Status Provider Name and Address Organization Details Recorded Time 03/12/20 24 OOPHORECTOMY (SURG) completed Leeanna Huynh [facility] 03/12/2024 12:57:26 01/16/20 24 Date of Last Mammogram completed Shelley Haque [facility] 02/23/2024 11:41:42 09/27/19 23 Date of Last Pap Smear completed Ivon Hernandez [facility] 08/08/2023 12:29:58 08/16/19 22 procedure on back completed Hanna Knutson [facility] 09/24/2021 12:35:12 Dilation and Curettage completed [facility] 11/03/2019 10:27:24 Hysteroscopy completed [facility] 11/03/2019 10:27:38 Imaging Results None recorded. [...] 2 times every day 05/04 completed Prescrib trupti Portillo e: No Locat ion: [facility] M odify By: [email or web address] Yessica r DateTime : 05/07/19 10:30:00 AM Not [...] Prescrib ed Elsewher e: No [facility] By: amzev smalluntdiane DateTime : 12/18/19 17 10:00:00 AM Not [...] Prescrib ed Elsewher e: No [facility] odify By: [email or web address] Goddard ncounter DateTime : 11/30/19 17 03:00:00 [...] Prescrib ed Elsewher e: No Locat ion: [facility] odify By: amzev smalluntdiane DateTime : 12/13/19 17 04:20:18 PM Not Available Not Available Not Available Macrobid 100 mg capsule take 1 capsule by oral route every 12 hours with food, as directed 07/23 completed Prescrib ed Elsewher e: No Locat ion: [facility] M odify By: rita Goddard ncounter DateTime : 06/24/19 18 04:12:42 PM Not Available Not Available Not Available oxycodone -acetamin ophen 5 mg-325 mg tablet 09/24 completed Not Available Not Available Not Available Zoloft 50 mg tablet take 1 tablet (50MG) by oral route every day 11/11 completed Prescrib ed Elsewher e: No Locat ion: [facility] odify By: rita Goddard ncounter DateTime : 08/21/19 12 02:00:00 PM Not Available Not Available Not Available Flagyl 500 mg tablet take 1 tablet by oral route 2 times every day 06/24 completed Prescrib ed Elsewher e: No Locat ion: [facility] odify By: rita Goddard ncountdiane DateTime : 05/30/19 18 02:30:00 PM Not [...] Prescrib ed Elsewher e: No Locat ion: [facility] odify By: rita Goddard ncounter DateTime : 07/03/19 18 04:00:00 [...] Prescrib ed Elsewher e: Yes Loca tion: [facility] odify By: amksusanne garay DateTime : 07/03/19 18 04:00:00 PM Not Available Not Available Not Available omeprazol e 20 mg capsule,d elayed release TAKE 1 CAPSULE BY MOUTH EVERY DAY BEFORE A MEAL active Not Available Not Available No t Available Tylenol 325 mg tablet take 1 tablet by oral route every 4 hours as needed 02/18 completed Prescrib ed Elsewher e: Yes Loca tion: [facility] odify By: amzev smalluntdiane DateTime : 07/03/19 18 04:00:00 PM Not [...] Prescrib ed Elsewher e: No Locat ion: [facility] odify By: [email or web address] Encounte r DateTime : 05/11/19 19 11:15:00 AM Not Available Not Available Not Available Say[place] 10 mg-325 mg tablet take 1 tablet by oral route every 4 - 6 hours as needed for pain 07/02 completed Prescrib ed Elsewher e: No Locat ion: [facility] odify By: amzev garay DateTime : 06/20/19 18 04:30:00 PM Not [...] Prescrib ed Elsewher e: Yes Loca tion: [facility] odify By: marcela kirby DateTime : 05/04/19 11:00:00 AM Not Available Not Available Not Available cyclobenz aprine 5 mg tablet TAKE 1 TABLET BY MOUTH THREE TIMES DAILY NEEDED FOR MUSCLE SPASM 09/26 completed Not Available Not Available Not Available Pepcid AC 20 mg tablet take 1 tablet (20MG) by oral route 2 times every day 11/11 completed Prescrib ed Elsewher e: No [facility] By: rita garay DateTime : 09/04/19 [...] Prescrib ed Elsewher e: No [facility] By: rita garay DateTime : 05/16/19 18 10:45:00 AM Not Available Not Available Not Available Anusol-HC 2.5 % topical cream with perineal applicato r apply by topical route 2 times every day to the affected area(s) 07/23 completed Prescrib ed Elsewher e: No [facility] By: rita garay DateTime : 12/18/19 17 10:00:00 AM Not Available Not Available Not Available ID NOW COVID-19 Test Kit TEST DIRECTED 12/28 completed Not Available Not Available Not Available Vitals Date Recorded Body height Body mass index (BMI) Body weight Systolic blood pressure Diastolic blood pressure Provider Name and Address Organization Details Last Updated DateTime 02/23/2024 162.56 cm 29.9 kg/m2 47207.07 g 106 mm[Hg] 74 mm[Hg] Shelley Haque [facility] 4 11:39:08 Social History Question Answer Notes LastModified by Organizat ion Details LastModified Time Tobacco Smoking Status Current Every Day Smoker Chiquita Palencia [facility], [facility] 09/26/2022 15:51:26 Do You Have [...] Or The Highest Degree You Have Received? [id number] Information not available 12/28/2020 What Is Your [...] Anxious, Or Unable To Sleep At Night)? [id number] Information not available 12/27/2020 Do You Use [...] available 2019 10:20:07 Sister Cyst of ovary [email or web address] Not available 2023 12:34:34 Maternal Uncle Carcinoma of prostate [email or web address] Not available 2023 12:34:34 Maternal Uncle Malignant tumor of pancreas Not available 2023 12:34:34 Paternal Uncle Malignant lymphoma [email or web address] Not available 2023 12:34:34 Medical History Condition [...] Diagnosis/Indication Diagnosis SNOMED-CT Code Diagnosis ICD10 Code [id number] Lakeisha Lange [place] [address],[place] [address] 02/17/2024 17:32:13 02/17/2024 18:20:36 Family history of malignant neoplasm of ovary 189981499 Z80.41 [id number] Lexx Barry MD [place] [address],[place] [address] 02/19/2024 14:29:38 02/19/2024 15:39:07 Cyst of ovary 54421882 N83.209 [id number] Lexx Barry MD [place] [address],[place] [address] 02/23/2024 11:27:04 02/24/2024 09:48:52 Cyst of right ovary [id number] N83.291 Z80.41 Gynecologi c examination 22338434 Z01.419 Z11.51 Health Concerns Section Related Observation LastModified by Organization Detai ls LastModified Time None Recorded Concern Status LastModified by Organization Details LastModified Time None Recorded Payers Encounter Date Sequence Insurance Name Policy Number Policy Serrano Covered Member ID Serrano Member ID Guarantor Name 02/23/2024 1 [facility] ON OR AFTER 09/14/20 (MEDICAID REPLACEMENT - HMO) Tessy Saenz [id number] Tessy Saenz Notes Date Note Type Note Provider Name and Address Organization Details Recorded Time 02/23/2024 text/html Annual GYNReported bypatient.History :no gynecologic complaints Menstrual cycle:Normal menses Urinary symptoms:No hematuria Vulva:No genital lesion Vagina:Normal vaginal discharge Breast:No breast pain; No breast lump Current Contraception:Bir th control not practiced Sexual complaints:No sexual complaints Menopausal Symptoms:No menopausal symptoms; Normal vaginal lubrication Psychological symptoms:No depression; No anxiety Preventive measures:Encourag e self breast examination; Encourage regular exercise Lexx Barry MD [address], [place], [address], [facility] 02/23/2024 21:07:56 OBGyn Episode No OBEpisode recorded.
--- OUTSIDE RECORDS SUMMARY | 2024-03-19 00:49 | XMS_ITS | Continuity of Care Document ---
Author Organization [facility] [place] Address [address] [place] [address] [place] [address] Care Team Providers Care Bunch Breaker Name Role Phone GREGORY AYOUB Primary Care Provider Assessment No assessment recorded. Plan of Treatment Reminders Order Date Submit Date Provider Last Modified By Organization Details Last Modified Time Details Appointments SURG POST OP 2024 11:15A Christel BARRY MD Not available Not available Not available Lab None recorded. Referral None recorded. Procedures None recorded. Surgeries None recorded. Imaging US, transvagi nal 2023 024 [email or web address] [place], [address], [address], [place], [address], 02/17/2024 21:47:15 Medication Orders None recorded. Patient TargetsNo targets recorded. Patient InstructionsNo instructions recorded. Reason for Referral None Reported. Results Created Date Observation Date Name Description Value Unit Range Abnormal Flag Note LastModifiedBy Organization Detail LastModifiedTime 02/17/2002/17/2024 US, josé coello No observ ation record ed. [facility] [address], [place], [address], 02/17/2024 18:19:16 02/17/2002/17/2024 USjosé al No observ ation record ed. [email or web address], [place], [address], 02/18/2024 15:04:30 Result Notes None recorded. Problems Name Problem SNOMED Code Status Onset Date Resolution Date Notes Provider Name and Address Organization Details Recorded Time Disorder of labor / delivery Completed 201607/17/2020 Twin pregnanc y, dichorio heather/diam niotic, first trimeste r;Practi ce ID: 0001 Hanna carr, [facility] 15:04:09 Antenata l screenin g Completed 201607/17/2020 Encounte r for antenata l screenin g for nuchal transluc ency;Pra ctice ID: 0001 Hanna carr, [facility] 15:03:40 Gestatio n period, 13 weeks [id number] Completed 201607/17/2020 13 weeks gestatio n of pregnanc y;Practi ce ID: 0001 Hanna carr [facility] 15:05:01 Normal pregnanc y in multigra kamari [id number] Completed 201607/17/2020 Encounte r for suprvsn of normal pregnanc y, second trimeste r;Practi ce ID: 0001 Hanna carr, [facility] 15:16:28 Spotting per vagina in pregnanc y [id number] Completed 201607/17/2020 Spotting complica ting pregnanc y, second trimeste r;Practi ce ID: 0001 Hanna carr, [facility] 15:21:34 Gestatio n period, 17 weeks [id number] Completed 201607/17/2020 17 weeks gestatio n of pregnanc y;Practi ce ID: 0001 Hanna carr [facility] 15:05:03 Disorder of labor / delivery Completed 201607/17/2020 Twin pregnanc y, dichorio heather/diam niotic, second trimeste r;Practi ce ID: 0001 Hanna carr [facility] 15:04:12 Antenata l screenin g for malforma tion Completed 201607/17/2020 Encounte r for antenata l screenin g for malforma tions;Pr actice ID: 0001 Hanna carr [facility] 15:03:43 Gestatio n period, 19 weeks [id number] Completed 201607/17/2020 19 weeks gestatio n of pregnanc y;Practi ce ID: 0001 Hanna carr [facility] 15:05:05 Prematur e labor [id number] Completed 201707/17/2020 labor without delivery , second trimeste r;Practi ce ID: 0001 [facility] 15:17:06 Gestatio n period, 22 weeks [id number] Completed 201707/17/2020 22 weeks gestatio n of pregnanc y;Practi ce ID: 0001 Hanna carr [facility] 15:14:39 Complica tion of pregnanc y, childbir th and/or puerperi [id number] Completed 201707/17/2020 Oth diseases and conditio ns compl preg/chl dbrth;Pr actice ID: 0001 Hanna carr [facility] 15:21:44 Gestatio n period, 23 weeks [id number] Completed 201707/17/2020 23 weeks gestatio n of pregnanc y;Practi ce ID: 0001 Hanna carr [facility] 15:05:[address] Concept Completed 201707/17/2020 Decrease d movement s, second trimeste r, unsp;Pra ctice ID: 0001 Hanna carr [facility] 15:17:23 Clinical finding Completed 201707/17/2020 Pain in right leg;Prac batsheva ID: 0001 Hanna carr, [facility] 15:04:43 Clinical finding Completed 201707/17/2020 Pain in left leg;Prac batsheva ID: 0001 Hanna carr, [facility] 15:04:45 Gestatio n period, 28 weeks [id number] Completed 201707/17/2020 28 weeks gestatio n of pregnanc y;Practi ce ID: 0001 [facility] 15:14:41 Disorder of labor / delivery Completed 201707/17/2020 Twin pregnanc y, dichorio heather/diam niotic, third trimeste r;Practi ce ID: 0001 Hanna carr, [facility] 15:04:14 Pelvic and perineal pain [id number] Completed 201707/17/2020 Pelvic and perineal pain;Pra ctice ID: 0001 [facility] 15:16:[address] Concept Completed 201707/17/2020 Decrease d movement s, third trimeste r, fetus 1;Practi ce ID: 0001 Hanna carr, [facility] 15:17:[address] Concept Completed 201707/17/2020 Decrease d movement s, third trimeste r, fetus 2;Practi ce ID: 0001 Hanna carr, [facility] 15:17:27 Gestatio n period, 31 weeks [id number] Completed 201707/17/2020 31 weeks gestatio n of pregnanc y;Practi ce ID: 0001 Hanna carr [facility] 15:14:43 finding Completed 201707/17/2020 Matern care for oth or susp poor fetl grth, third tri, unsp;Pra ctice ID: 0001 Hanna carr [facility] 15:04:41 Gestatio n period, 32 weeks [id number] Completed 201707/17/2020 32 weeks gestatio n of pregnanc y;Practi ce ID: 0001 Hanna carr [facility] 15:14:45 Gestatio n period, 33 weeks [id number] Completed 201707/17/2020 33 weeks gestatio n of pregnanc y;Practi ce ID: 0001 Hanna carr [facility] 15:14:47 Oligohyd ramnios Completed 201707/17/2020 Oligohyd ramnios, third trimeste r, not applicab le or unsp;Pra ctice ID: 0001 Hanna carr [facility] 15:04:50 Urinary tract infectio us disease [id number] Completed 201707/17/2020 Urinary tract infectio n, site not specifie d;Practi ce ID: 0001 Hanna carr [facility] 15:21:46 Lochia finding Completed 201707/17/2020 Encounte r for routine postpart um follow-u p;Practi ce ID: 0001 Hanna carr [facility] 15:16:15 Subacute and chronic vaginiti s [id number] Completed 201707/17/2020 Subacute and chronic vaginiti s;Practi ce ID: 0001 Hanna carr [facility] 15:21:36 Pain Completed 201707/17/2020 Upper abdomina l pain, unspecif ied;Prac batsheva ID: 0001 [facility] 15:16:30 Imaging of abdomen abnormal [id number] Completed 201707/17/2020 Abn findings on dx imaging of abd regions, inc retroper iton;Pra ctice ID: 0001 [facility] 15:16:05 Genetic predispo sition [id number] Completed 201707/17/2020 Genetic suscepti bility to malignan t neoplasm of ovary;Pr actice ID: 0001 Hanna Knutson [facility] 15:04:59 Family history of malignan t neoplasm of ovary 919366565 Completed 201707/17/2020 Family history of malignan t neoplasm of ovary;Pr actice ID: 0001 Hanna Knutson [facility] 15:05:23 Foreign body in cervix 720107749 Completed 201707/17/2020 Foreign body in uterus, initial encounte r;Practi ce ID: 0001 Hanna Knutson [facility] 15:04:57 Insertio n of intraute rine contrace ptive device Completed 201707/17/2020 Encounte r for insertio n of intraute rine contrace ptive device;P ractice ID: 0001 Hanna Knutson [facility] 15:16:10 Pregnanc y test negative [id number] Completed 201707/17/2020 Encounte r for pregnanc y test, result negative ;Practic e ID: 0001 Hanna Knutson [facility] 15:17:03 Acute vaginiti s [id number] Completed 201707/17/2020 Acute vaginiti s;Practi ce ID: 0001 Hanna carr [facility] 15:03:[address] Concept Completed 201707/17/2020 Encntr for ob gyn exam (general ) (routine ) w/o abn findings ;Practic e ID: 0001 Hanna carr [facility] 15:17:30 Mass of right breast [id number] Completed 201807/17/2020 Unspecif ied lump in the right breast, unspecif ied quadrant ;Practic e ID: 0001 Hanna carr [facility] 15:16:18 Lesion of ovary Completed 201807/17/2020 Other ovarian cyst, right side;Pra ctice ID: 0001 [facility] 15:04:07 Cyst of ovary Completed 201807/17/2020 Unspecif ied ovarian cyst, unspecif ied side;Pra ctice ID: 0001 [facility] 15:03:50 Family planning surveill ance Completed 201107/17/2020 Contrace ptive surveill ance, unspecif ied;Chace rded Elsewher e: No Locat ion: [facility] S ource: EHR Flight Test Engineer heather: N Practi ce ID: 0001 Melchor lable Time: 02:00:00 PM [facility] 15:04:33 Clinical finding Completed 201707/17/2020 Presence of (intraut erine) contrace ptive device;R ecorded Elsewher e: No Locat ion: [facility] S ource: EHR Flight Test Engineer heather: N Practi ce ID: 0001 Melchor lable Time: 02:00:00 PM Hanna carr [facility] 1 15:03:48 Removal of intraute rine device Completed 201507/17/2020 Encounte r for removal of intraute rine contrace ptive device;R ecorded Elsewher e: No Locat ion: [facility] S ource: EHR Flight Test Engineer heather: N Daryl ce ID: 0001 Melchor lable Time: 05:00:00 PM Hanna carr [facility] 1 15:17:09 Uses IUD (intraut erine device) contrace ption [id number] Completed 201407/17/2020 IUD check;Re corded Elsewher e: No Locat ion: [facility] S ource: EHR [employer] Test Engineer heather: N Daryl ce ID: 0001 Melchor lable Time: 01:45:00 PM Hanna Knutson [facility] 1 15:16:13 Breast lump [id number] Completed 201607/17/2020 Unspecif ied lump in breast;R ecorded Elsewher e: No Locat ion: [facility] S ource: E[employer] Test Engineer heather: N Leonti ce ID: 0001 Melchor lable Time: 09:30:00 AM Hanna Knutson [facility] 1 15:03:45 Speciali zed medical examinat ion Completed 201407/17/2020 Well woman check;Re corded Elsewher e: No Locat ion: [facility] S ource: EHR [employer] Test Engineer heather: N Leonti ce ID: 0001 Melchor lable Time: 01:45:00 PM Hanna carr [facility] 1 15:21:31 Infectio n screenin g Completed 201707/17/2020 Encounte r for screenin g for oth infec/pa rastc diseases ;Recorde d Elsewher e: No Locat ion: [facility] S ource: EHR Flight Test Engineer heather: N Practi ce ID: 0001 Melchor lable Time: 03:15:00 PM Hanna Knutson [facility] 1 15:16:08 Screenin g for malignan t neoplasm of cervix Completed 201707/17/2020 Encounte r for screenin g for malignan t neoplasm of cervix;R ecorded Elsewher e: No Locat ion: [facility] S ource: EHR Flight Test Engineer heather: N Practi ce ID: 0001 Melchor lable Time: 03:15:00 PM Hanna Knutson [facility] 15:17:18 Depressi ve disorder [id number] Completed 201107/17/2020 Depressi on;Recor ded Elsewher e: No Locat ion: [facility] S ource: EHR Flight Test Engineer heather: N Practi ce ID: 0001 Melchor lable Time: 02:00:00 PM Hanna Knutson [facility] 1 15:04:02 Syphilis test finding [id number] Completed 201607/17/2020 Encntr screen for infectio ns w sexl mode of transmis s;Record ed Elsewher e: No Locat ion: [facility] S ource: EHR Flight Test Engineer heather: N Practi ce ID: 0001 Melchor lable Time: 03:00:00 PM Hanna Knutson [facility] 15:21:38 Routine antenata l care Completed 201007/17/2020 Supervis ion of other normal pregnanc y;Practi ce ID: 0001 Hanna Knutson [facility] 15:17:16 Excessiv e growth affectin g manageme nt of mother [id number] Completed 201007/17/2020 GROWTH LARGE LGA;Prac batsheva ID: 0001 Hanna Knutson [facility] 15:04:25 Poor growth affectin g manageme nt [id number] Completed 201007/17/2020 GROWTH POOR SGA;Prac batsheva ID: 0001 [facility] 15:16:55 Delivery normal [id number] Completed 201007/17/2020 Normal delivery ;Practic e ID: 0001 [facility] 15:04:00 Single live [id number] Completed 201007/17/2020 Mother with single liveborn ;Practic e ID: 0001 Hanna Knutson [facility] 15:17:21 Postpart um care Completed 201007/17/2020 Routine postpart um follow-u p;Leonti ce ID: 0001 Hanna Knutson [facility] 15:16:58 Ill-defi reece intestin al infectio n Completed 201007/17/2020 No Show Fee;Prac batsheva ID: 0001 Hanna Knutson [facility] 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 15:16:25 Vaginiti s and vulvovag initis Completed 201107/17/2020 Vaginiti s and vulvovag initis, unspecif ied;Prac batsheva ID: 0001 Hanna Knutson [facility] 15:21:48 Nausea and vomiting 80598754 Completed 201607/17/2020 Nausea with vomiting , unspecif ied;Chace rded Elsewher e: No [facility]at [facility] S [facility]ce: EHR Flight Test Engineer heather: N Leonti ce ID: 0001 Melchor lable Time: 03:00:00 PM Hanna carr [facility] 1 15:16:22 Evaluati on finding Completed 201607/17/2020 Hematuri a, unspecif ied;Chace rded Elsewher e: No Locat ion: [facility] S ource: EHR Flight Test Engineer heather: N Leonti ce ID: 0001 Melchor lable Time: 09:30:00 AM Hanna Knutson [facility] 1 15:04:16 Disorder of breast [id number] Completed 201807/17/2020 Disorder of breast, unspecif ied;Chace rded Elsewher e: No Locat ion: [facility] S ource: EHR Flight Test Engineer heather: N Daryl ce ID: 0001 Melchor lable Time: 10:30:00 AM Hanna Knutson [facility] 1 15:04:05 Threaten ed miscarri age [id number] Completed 201607/17/2020 Threaten ed ;Recorde d Elsewher e: No Locat ion: [facility] S ource: EHR Flight Test Engineer heather: N Leonti ce ID: 0001 Melchor lable Time: 05:00:00 PM Hanna Knutson [facility] 15:21:40 Vaginola bial hernia Completed 201707/17/2020 Other specifie d noninfla mmatory disorder s of vagina;R ecorded Elsewher e: No Locat ion: [facility] S ource: EHR Flight Test Engineer heather: N Leonti ce ID: 0001 Melchor lable Time: 10:15:00 AM Hanna Knutson [facility] 15:21:51 Malaise and fatigue [id number] Completed 201207/17/2020 Fatigue / Malaise; Recorded Elsewher e: No Locat ion: [facility] S ource: EHR Flight Test Engineer heather: N Practi ce ID: 0001 Melchor lable Time: 05:00:00 PM Hanna Knutson [facility] 1 15:16:20 Finding of defecati on Completed 201607/17/2020 Constipa tion;Rec orded Elsewher e: No Locat ion: [facility] Practi ce ID: 0001 Melchor lable Time: 03:00:00 PM Hanna [facility] 1 15:04:48 Abdomina l pain [id number] Completed 201107/17/2020 Abdomina l pain, other specifie d site;Rec orded Elsewher e: No Locat ion: [facility]: N Practi ce ID: 0001 Melchor lable Time: 11:15:00 AM Hanna Knutson [facility] 1 15:03:32 Exposure to sexually transmis sible disorder Completed 201807/17/2020 Exposure to infectio n with a predomin antly sexual mode of transmis shyann;Rec orded Elsewher e: No [facility]: N Practi ce ID: 0001 Melchor lable Time: 01:45:00 PM Hanna Knutson [facility] 1 15:04:28 Finding of trunk structur e [id number] Completed 201107/17/2020 Abdomina l or pelvic swelling , mass, or lump, other specifie d site;Rec orded Elsewher e: No Locat ion: [facility]: N Practi ce ID: 0001 Melchor lable Time: 08:30:00 AM Hanna [facility] 1 15:04:54 Female genital organ symptoms [id number] Completed 201207/17/2020 Unspecif ied symptom associat ed with female genital organs;R ecorded Elsewher e: No Locat ion: [facility] S ource: EHR Flight Test Engineer heather: N Leonti ce ID: 0001 Melchor lable Time: 01:45:00 PM Hanna Knutson [facility] 15:04:38 Pregnanc y detectio n examinat ion Completed 201607/17/2020 Encounte r for pregnanc y test, result positive ;Recorde d Elsewher e: No Locat ion: [facility] S ource: EHR Flight Test Engineer heather: N Leonti ce ID: 0001 Melchor lable Time: 03:00:00 PM Hanna Knutson [facility] 15:17:01 Gestatio n period, 9 weeks [id number] Completed 201607/17/2020 9 weeks gestatio n of pregnanc y;Record ed Elsewher e: No Locat ion: [facility] S ource: EHR Flight Test Engineer heather: N Leonti ce ID: 0001 Melchor lable Time: 10:00:00 AM Hanna Knutson [facility] 15:14:49 Retained placenta , without hemorrha ge [id number] Completed 201707/17/2020 Retained placenta w/o hemorrha ge;Recor ded Elsewher e: No Locat ion: [facility] S ource: EHR [employer] Test Engineer heather: N Leonti ce ID: 0001 Melchor lable Time: 01:30:00 PM Hannaeliza Knutson [facility] 15:17:13 Amenorrh ea [id number] Completed 201607/17/2020 Amenorrh ea, unspecif ied;Chace rded Elsewher e: No Locat ion: [facility] S ource: EHR [employer] Test Engineer heather: N Leonti ce ID: 0001 Melchor lable Time: 03:00:00 PM Hanna carr, [facility] 1 15:03:37 Delayed delivery of second twin, triplet etc Completed 201707/17/2020 Delayed delivery of other multiple gestatio n fetus;Re corded Elsewher e: No [facility] S ource: EHR Flight Test Engineer heather: N Practi ce ID: 0001 Melchor lable Time: 10:00:00 AM Hanna carr, [facility] 1 15:03:54 BRCA2 gene mutation detected [id number] Active 2022 Lexx Barry MD [address], [place], [address], [facility] 3 16:17:40 Problem Notes None recorded. Procedures Surgical History Date Name Laterality Status Provider Name and Address Organization Details Recorded Time 03/12/20 24 OOPHORECTOMY (SURG) completed Leeanna Huynh [facility] 03/12/2024 12:57:26 01/16/20 24 Date of Last Mammogram completed Shelley Haque [facility] 02/23/2024 11:41:42 09/27/19 23 Date of Last Pap Smear completed Ivon Hernandez [facility] 08/08/2023 12:29:58 08/16/19 22 procedure on back completed [facility] 09/24/2021 12:35:12 Dilation and Curettage completed [facility] 11/03/2019 10:27:24 Hysteroscopy completed [facility] 11/03/2019 10:27:38 Imaging Results Imaging Date Name Status LastModified by Organization Details LastModified Time 02/17/2024 US, transvaginal completed sharath goddard [address], [place], [address], 02/17/2024 18:19:16 02/17/2024 US, transvaginal completed [email or web address], [place], [address], 02/18/2024 15:04:30 Procedure Notes None recorded. Medical [...] Prescrib trupti Portillo e: No Locat ion: [facility] odify By: [email or web address] Yessica r DateTime : 05/07/19 10:30:00 AM [...] Prescrib ed Elsewher e: No [facility] By: rita Goddard ncountdiane DateTime : 12/18/19 10:00:00 AM Not Available Not Available Not [...] ed Elsewher e: No Locat ion: [facility] odify By: amzev Goddard ncounter DateTime : 11/30/19 03:00:00 PM Not Available Not Available Not [...] Prescrib ed Elsewher e: No [facility] By: amzev Goddard ncountdiane DateTime : 12/13/19 17 04:20:18 PM Not Available Not Available Not Available Macrobid 100 mg capsule take 1 capsule by oral route every 12 hours with food, as directed 07/23 completed Prescrib ed Elsewher e: No Locat ion: [facility] odify By: [email or web address] Goddard ncounter DateTime : 06/24/19 18 04:12:42 PM Not Available Not Available Not Available oxycodone -acetamin ophen 5 mg-325 mg tablet 09/24 completed Not Available Not Available Not Available Zoloft 50 mg tablet take 1 tablet (50MG) by oral route every day 11/11 completed Prescrib ed Elsewher e: No [facility]at [facility] odify By: [email or web address] Goddard ncounter DateTime : 08/21/19 12 02:00:00 PM Not Available Not Available Not Available Flagyl 500 mg tablet take 1 tablet by oral route 2 times every day 06/24 completed Prescrib ed Elsewher e: No Locat [facility]: [facility] odify By: [email or web address] Goddard ncounter DateTime [...] Elsewher e: No Locat ion: [facility] odify By: [email or web address] Goddard ncounter DateTime [...] Prescrib ed Elsewher e: Yes Loca tion: [facility] odify By: amksusanne Goddard ncountdiane DateTime : 07/03/19 18 04:00:00 PM Not Available Not Available Not Available omeprazol e 20 mg capsule,d elayed release TAKE 1 CAPSULE BY MOUTH EVERY DAY BEFORE A MEAL active Not Available Not Available No t Available Tylenol 325 mg tablet take 1 tablet by oral route every 4 hours as needed 02/18 completed Prescrib ed Elsewher e: Yes Loca tion: [facility] odify By: amzev Goddard ncounter DateTime : 07/03/19 18 04:00:00 [...] Elsewher e: No Locat ion: [facility] odify By: [email or web address] Encounte r DateTime : 05/11/19 19 11:15:00 AM Not Available Not Available Not Available [place] 10 mg-325 mg tablet take 1 tablet by oral route every 4 - 6 hours as needed for pain 07/02 completed Prescrib ed Elsewher e: No Locat ion: [facility] odify By: amksusanne smalluntdiane DateTime : 06/20/19 18 04:30:00 PM Not [...] ed Elsewher e: Yes Loca tion: [facility] odify By: marcela kirby DateTime : 05/04/19 [...] Elsewher e: No Locat ion: [facility] odify By: rita garay DateTime : [...] Elsewher e: No Locat ion: [facility] [facility]ify By: rita smalluntdiane DateTime : 05/16/19 18 10:45:00 AM Not Available Not Available Not Available Anusol-HC 2.5 % topical cream with perineal applicato r apply by topical route 2 times every day to the affected area(s) 07/23 completed Prescrib ed Elsewher e: No Locat ion: Cesar [facility]ify By: rita garay DateTime : 12/18/19 17 10:00:00 AM Not Available Not Available Not Available ID NOW COVID-19 Test Kit TEST DIRECTED 12/28 completed Not Available Not Available Not Available Vitals None Recorded Social History Question Answer Notes LastModified by Organizat ion Details LastModified Time Tobacco Smoking Status Current Every Day Smoker Chiquita Palencia [facility] 09/26/2022 15:51:26 Do You Have An [...] Or The Highest Degree You Have Received? [id number] Information not available 12/28/2020 What Is Your [...] Anxious, Or Unable To Sleep At Night)? [id number] Information not available 12/27/2020 Do You Use [...] available 2019 10:20:07 Sister Cyst of ovary [id number] Not available 2023 12:34:34 Maternal Uncle Carcinoma of prostate Not available 2023 12:34:34 Maternal Uncle Malignant tumor of pancreas [id number] Not available 2023 12:34:34 Paternal Uncle Malignant lymphoma [email or web address] Not available 2023 12:34:34 Medical History Condition [...] Diagnosis/Indication Diagnosis SNOMED-CT Code Diagnosis ICD10 Code [id number] Lakeisha Lange [place] [address] [address] 02/17/2024 17:32:13 02/17/2024 18:20:36 Family history of malignant neoplasm of ovary [id number] Z80.41 Health Concerns Section Related Observation LastModified by Organization Detai ls LastModified Time None Recorded Concern Status LastModified by Organization Details LastModified Time None Recorded Payers Encounter Date Sequence Insurance Name Policy Number Policy Serrano Covered Member ID Serrano Member ID Guarantor Name 02/17/2024 1 [facility] - DOS ON OR AFTER 20 (MEDICAID REPLACEMENT - HMO) Tessy Saenz [id number] Tessy Saenz OBGyn Episode No OBEpisode recorded.
--- OUTSIDE RECORDS SUMMARY | 2024-03-19 00:50 | XMS_ITS | Encounter Summary ---
Author Organization [facility] Address [address] [place] [address] Care Team Providers Care Bulk Cooler Installer Name Role Phone Demar Campbell MD Primary Care Provider [phone] Encounter Details Date Type Department Care Team (Latest Contact Info) Description 03/01/2024 Travel Social History Tobacco Use Types Packs/Day Years Used Date Smoking Tobacco: Some Days Cigarettes Smokeless Tobacco: Never Alcohol Use Standard Drinks/Week Comments Not Currently 0 (1 standard drink = 0.6 oz pur e alcohol) Sex and Gender Information Value Date Recorded Sex Assigned at Not on file Gender Identity Not on file Sexual Orientation Not on file documented as of this encounter Functional Status Functional Status Response Date of Assess ment Is person deaf or have serious hearing difficult y? No 12/29/2018 Is person blind or have serious difficulty seein g? No 12/29/2018 Does person have serious dif ficulty walking/climbing stairs? No 12/29/2018 Does person have difficulty dressing/bathing? No 12/29/2018 Does person have difficulty doing errands alone? No 12/29/2018 Cognitive Status Response Date of Assessm ent Does person have difficulty concentrating/remembering/making decisions? No 12/29/2018 documented as of this encounter Plan of Treatment Upcoming Encounters Date Type Department Care Team (Late st Contact Info) Description 04/09/2024 8:00 AM CUPOLA LINER Office Visit [facility] [address] [place] [address], [place] [phone] Gigi Bueno MD [address] [place] [address] [place] [address] 07/01/2024 1:30 PM CDT Office Visit [facility] - GI [address] [facility], [place] [address] Milka Soni MD [address] [place] [address] 08/02/2024 9:30 AM CDT Appointment [facility] [address] [place] [address] Linda Dueñas MD [address] [facility] [place] [address] 08/02/2024 10:30 AM CDT Office Visit [facility] - General Surgery [address] [place] [phone] Linda Dueñas MD [address] [facility] [place] [address] 02/07/2025 10:30 AM CUPOLA LINER Appointment [address] [address] Linda Dueñas MD [address] [facility] [place] [address] 02/07/2025 11:00 AM CUPOLA LINER Office Visit [facility] - General Surgery [address] [place] [phone] Linda Dueñas MD [address] [facility] [place] [address] documented as of this encounter Goals Goal Patient Goal Type Associated Problems Recent Progress Patient-Stated? Author Medication Management General On track( 024 2:10 PM CUPOLA LINER) Gordy Rodriguez, HAM Note: Expected end date: ongoing Interventions: Take all medications as prescribed Let your doctor know right away about any changes in your medications Make sure to request a refill of your medication at least one week prior to your last dose documented as of this encounter Visit Diagnoses Not on filedocumented in this encounter Care Teams Bulk Cooler Installer Relationship Specialty Start Date End Date Demar Campbell MD [address] [facility] [address] [facility] [address] [place] [address] PCP - General 08/08/17 documented as of this encounter
--- OUTSIDE RECORDS SUMMARY | 2024-03-19 00:50 | XMS_ITS | Encounter Summary ---
Author Organization [facility] Address [address] [place] [address] Care Team Providers Care Painter Hand Name Role Phone Demar Campbell MD Primary Care Provider [phone] Encounter Details Date Type Department Care Team (Latest Contact Info) Description 03/01/2024 4:15 PM GAMING COMMISSIONER - 03/01/2024 11:59 PM [facility] Hospital Encounter [facility] OP DRAW STATION [address] [place] [address] [phone] Milka Soni MD [address] [place] [address] [phone] Discharge Disposition: Home or Self Care Social History Tobacco Use Types Packs/Day Years [...] No 12/29/2018 documented as of this encounter Medications at Time of Discharge Medication Sig Dispensed Refills Start Date End Date albuterol HFA (Proventil; Ventolin; Proair) 108 (90 Base) MCG/ACT inhaler Inhale 1 (one) puff by mouth every 4 hours as needed for Shortness of Breath or Wheezing 12/03/2023 clindamycin (CLEOCIN) 1 % lotionIndications:Hidr adenitis suppurativa,Acne vulgaris Apply to affected areas of HS/body acne twice daily when present. 60 mL 11 08/22/2021 doxycycline hyclate (VIBRAMYCIN) 100 MG tabletIndications:Acne Vulgaris Take 1 pill twice daily with food. Reasons: Common Acne 60 tablet 3 10/02/2021 folic acid (Folvite) 1 MG tablet Take 1 (one) tablet by mouth once daily 01/30/2024 levonorgestrel (Mirena, 52 MG,) 20 MCG/DAY IUD spironolactone (Aldactone) 100 MG tablet Take 1 (one) tablet by mouth once daily 12/08/2021 omeprazole (PriLOSEC) 20 MG capsule Take 1 (one) capsule by mouth 2 times daily, before breakfast and supper 11/19/2023 03/03/2024 documented as of this encounter Plan of Treatment Upcoming Encounters Date Type Department Care Team (Late st Contact Info) Description 04/09/2024 8:00 AM GAMING COMMISSIONER Office Visit [facility] [address] [place] [phone] Gigi Bueno MD [address] [place] [address] [place] [address] 07/01/2024 1:30 PM CDT Office Visit [facility] [address] [place] [address] [phone] Milka Soni MD [address] [place] [phone] 08/02/2024 9:30 AM CDT Appointment [address] [phone] Linda Dueñas MD [address] [place] [address] 08/02/2024 10:30 AM CDT Office Visit [facility] General Surgery [address] [place] [address] [phone] Linda Dueñas MD [address] [place] [address] 02/07/2025 10:30 AM GAMING COMMISSIONER Appointment [address] [phone] Linda Dueñas MD [address] [facility] [place] [address] 02/07/2025 11:00 AM GAMING COMMISSIONER Office Visit [address] [phone] Linda Dueñas MD [address] [facility] [place] [address] documented as of this encounter Goals Goal Patient Goal Type Associated Problems Recent Progress Patient-Stated? Author Medication Management General On track( 024 2:10 PM GAMING COMMISSIONER) Gordy Rodriguez, RN Note: Expected end date: ongoing Interventions: Take all medications as prescribed Let your doctor know right away about any changes in your medications Make sure to request a refill of your medication at least one week prior to your last dose documented as of this encounter Procedures Procedure Name Priority Date/Time Associated Diagnosis Comments QUANTIFERON-TB GOLD PLUS 4-TUBE Routine 03/01/2024 4:29 PM GAMING COMMISSIONER Hepatic fibrosis Ulcerative colitis with complication, unspecified location (HCC) Intestinal malabsorption, unspecified type (HCC) Therapeutic drug monitoring SMOOTH MUSCLE ANTIBODY W REFLEX TITER Routine 03/01/2024 4:29 PM GAMING COMMISSIONER Hepatic fibrosis Ulcerative colitis without complications, unspecified location (HCC) Intestinal malabsorption, unspecified type (HCC) Therapeutic drug monitoring C-REACTIVE PROTEIN Routine 03/01/2024 4: 29 PM GAMING COMMISSIONER Hepatic fibrosis Ulcerative colitis with complication, unspecified location (HCC) Intestinal malabsorption, unspecified type (HCC) Therapeutic drug monitoring NERI BLOOD SCREEN W/REFLEX TITER Routine 03/01/2024 4:29 PM GAMING COMMISSIONER Hepatic fibrosis Ulcerative colitis with complication, unspecified location (HCC) Intestinal malabsorption, unspecified type (HCC) Therapeutic drug monitoring VITAMIN D 25-HYDROXY Routine 03/01/2024 4:29 PM GAMING COMMISSIONER Hepatic fibrosis Ulcerative colitis with complication, unspecified location (HCC) Intestinal malabsorption, unspecified type (HCC) Therapeutic drug monitoring CBC W AUTO DIFFERENTIAL Routine 03/01/2024 4:29 PM GAMING COMMISSIONER Hepatic fibrosis Ulcerative colitis with complication, unspecified location (HCC) Intestinal malabsorption, unspecified type (HCC) Therapeutic drug monitoring COMPREHENSIVE METABOLIC PANEL Routine 03/01/2024 4:29 PM GAMING COMMISSIONER Hepatic fibrosis Ulcerative colitis with complication, unspecified location (HCC) Intestinal malabsorption, unspecified type (HCC) Therapeutic drug monitoring HEPATITIS B SURFACE ANTIBODY Routine 03/01/2024 4:29 PM GAMING COMMISSIONER Hepatic fibrosis Ulcerative colitis with complication, unspecified location (HCC) Intestinal malabsorption, unspecified type (HCC) Therapeutic drug monitoring HEPATITIS B CORE ANTIBODY TOTAL Routine 03/01/2024 4:29 PM GAMING COMMISSIONER Hepatic fibrosis Ulcerative colitis with complication, unspecified location (HCC) Intestinal malabsorption, unspecified type (HCC) Therapeutic drug monitoring HEPATITIS B SURFACE ANTIGEN W RFLX CONFIRMATION Routine 03/01/2024 4:29 PM GAMING COMMISSIONER Hepatic fibrosis Ulcerative colitis with complication, unspecified location (HCC) Intestinal malabsorption, unspecified type (HCC) Therapeutic drug monitoring FOLATE Routine 03/01/2024 4:29 PM GAMING COMMISSIONER Hepatic fibrosis Ulcerative colitis with complication, unspecified location (HCC) Intestinal malabsorption, unspecified type (HCC) Therapeutic drug monitoring VITAMIN B12 Routine 03/01/2024 4:29 PM GAMING COMMISSIONER Hepatic fibrosis Ulcerative colitis with complication, unspecified location (HCC) Intestinal malabsorption, unspecified type (HCC) Therapeutic drug monitoring IRON + TRANSFERRIN PANEL Routine 03/01/2024 4:29 PM GAMING COMMISSIONER Hepatic fibrosis Ulcerative colitis with complication, unspecified location (HCC) Intestinal malabsorption, unspecified type (HCC) Therapeutic drug monitoring HEPATITIS C ANTIBODY Routine 03/01/2024 4:29 PM GAMING COMMISSIONER Hepatic fibrosis Ulcerative colitis with complication, unspecified location (HCC) Intestinal malabsorption, unspecified type (HCC) Therapeutic drug monitoring FERRITIN Routine 03/01/2024 4:29 PM GAMING COMMISSIONER Hepatic fibrosis Ulcerative colitis with complication, unspecified location (HCC) Intestinal malabsorption, unspecified type (HCC) Therapeutic drug monitoring documented in this encounter Results * (ABNORMAL) VITAMIN D 25-HYDROXY (03/01/2024 4:29 PM GAMING COMMISSIONER) Vitamin D, 25 Hydroxy 10.3(L) 30.0 - 80.0 ng/mL 03/01/2024 6:09 PM GAMING COMMISSIONER [facility] Comment: The recommendations for 25-Hydroxy Vitamin [...] Lab Venipuncture / Unknown 03/01/2024 4:29 PM GAMING COMMISSIONER 03/01/2024 5:04 PM GAMING COMMISSIONER Mariel Short [facility] CH EMISTRY ORDERABLES Performing Organization Address City/[facility]/ZIP Co de Phone Number [address] [address], [facility] [phone] * (ABNORMAL) VITAMIN B12 (03/01/2024 4:29 PM GAMING COMMISSIONER) Vitamin B12 822(H) 213 - 816 pg/mL 03/01/2024 6:09 PM GAMING COMMISSIONER [facility] Blood BLOOD SPECIMEN / Unknown Lab Venipuncture / Unknown 03/01/2024 4:29 PM GAMING COMMISSIONER 03/01/2024 5:04 PM GAMING COMMISSIONER Mariel Short [facility] - CH EMISTRY ORDERABLES Performing Organization Address [facility] Co de Phone Number [address] [address], [place] [phone] * (ABNORMAL) FERRITIN (03/01/2024 4:29 PM GAMING COMMISSIONER) Ferritin 355(H) 13 - 204 ng/mL 03/01/2024 5:52 PM GAMING COMMISSIONER [facility] Blood BLOOD SPECIMEN / Unknown Lab Venipuncture / Unknown 03/01/2024 4:29 PM GAMING COMMISSIONER 03/01/2024 4:57 PM GAMING COMMISSIONER Mariel Short [facility] - CH EMISTRY ORDERABLES Performing Organization Address [facility] Co de Phone Number [address] [address], [place] [phone] * (ABNORMAL) FOLATE (03/01/2024 4:29 PM GAMING COMMISSIONER) Folate 5.9(L) 7.0 - 31.4 ng/mL 03/01/2024 6:09 PM GAMING COMMISSIONER [facility] Blood BLOOD SPECIMEN / Unknown Lab Venipuncture / Unknown 03/01/2024 4:29 PM GAMING COMMISSIONER 03/01/2024 5:04 PM GAMING COMMISSIONER Mariel Short BATCH UNIT TREATER-[facility] LAB - CH EMISTRY ORDERABLES [facility] [address] [place] [address], [facility] [phone] * (ABNORMAL) IRON + TRANSFERRIN PANEL [w/Transferrin Sat % + TIBC] (03/01/2024 4:29 PM GAMING COMMISSIONER) Iron 88 40 - 150 ug/dL 03/01/2024 5:33 PM GAMING COMMISSIONER [facility] Transferrin 185 174 - 382 mg/dL 03/01/2024 5:33 PM GAMING COMMISSIONER [facility] Transferrin Saturation % 38 16 - 50 % 03/01/2024 5:33 PM [facility] TIBC Calculated 231(L) 240 - 450 ug/dL 03/01/2024 5:33 PM GAMING COMMISSIONER [facility] Blood BLOOD SPECIMEN / Unknown Lab Venipuncture / Unknown 03/01/2024 4:29 PM GAMING COMMISSIONER 03/01/2024 4:57 PM GAMING COMMISSIONER Mariel Short BATCH UNIT TREATER-[facility] LAB - CH EMISTRY ORDERABLES [facility] [address] [place] [address], [place] [phone] * C-REACTIVE PROTEIN (03/01/2024 4:29 PM GAMING COMMISSIONER) C-Reactive Protein <0.5 <=0.5 mg/dL 03/01/2024 5:38 PM GAMING COMMISSIONER [facility] Blood BLOOD SPECIMEN / Unknown Lab Venipuncture / Unknown 03/01/2024 4:29 PM GAMING COMMISSIONER 03/01/2024 5:04 PM GAMING COMMISSIONER Mariel Short BATCH UNIT TREATER-[employer] LAB - CH EMISTRY ORDERABLES [facility] [address] [place] [address], [facility] [phone] * (ABNORMAL) COMPREHENSIVE METABOLIC PANEL (03/01/2024 4:29 PM GAMING COMMISSIONER) BUN 12 7 - 26 mg/dL 03/01/2024 5:37 PM [facility] Creatinine 0.55(L) 0.56 - 0.96 mg/dL 03/01/2024 5:37 PM [facility] Sodium 138 136 - 145 mmol/L 03/01/2024 5:37 PM [facility] Potassium 4.2 3.5 - 4.5 mmol/L 03/01/2024 5:37 PM [facility] Chloride 108(H) 98 - 107 mmol/L 03/01/2024 5:37 PM [facility] CO2 26 22 - 29 mmol/L 03/01/2024 5:37 PM [facility] Glucose 88 70 - 99 mg/dL 03/01/2024 5:37 PM [facility] Calcium 9.1 8.4 - 10.2 mg/dL 03/01/2024 5:37 PM [facility] Protein Total 7.4 6.0 - 8.3 g/dL 03/01/2024 5:37 PM [facility] Albumin 4.1 3.4 - 5.0 g/dL 03/01/2024 5:37 PM [facility] Bilirubin Total 0.8 0.2 - 1.2 mg/dL 03/01/2024 5:37 PM [facility] Alkaline Phosphatase 42 40 - 150 U/L 03/01/2024 5:37 PM [facility] ALT 12 5 - 55 U/L 03/01/2024 5:37 PM [facility] AST 13 5 - 34 U/L 03/01/2024 5:37 PM [facility] Anion Gap 4(L) 6 - 16 03/01/2024 5:37 PM [facility] BUN/Creatinine Ratio 22 7 - 23 03/01/2024 5:37 PM [facility] Osmolality Calculated 285 275 - 295 mOsm/kg 03/01/2024 5:37 PM [facility] Albumin/Globulin Ratio 1.2 1.1 - 2.3 03/01/2024 5:37 PM [facility] eGFR by CKD-EPI >90 >=90 mL/min/1.7 3 m2 03/01/2024 5:37 PM [facility] Blood BLOOD SPECIMEN / Unknown Lab Venipuncture / Unknown 03/01/2024 4:29 PM GAMING COMMISSIONER 03/01/2024 5:04 PM GAMING COMMISSIONER Mariel Short BATCH UNIT TREATER-[employer]HE[employer] LAB - CH EMISTRY ORDERABLES Performing Organization Address City/State/[facility] Co de Phone Number [address] [address] [phone] * (ABNORMAL) CBC W/ DIFFERENTIAL (03/01/2024 4:29 PM GAMING COMMISSIONER) WBC 8.7 4.0 - 10.7 x10E9/L 03/01/2024 6:04 PM [facility] RBC Count 4.82 3.90 - 5.20 x10E12/L 03/01/2024 6:04 PM [facility] Hemoglobin 10.8(L) 11.9 - 15.8 g/dL 03/01/2024 6:04 PM [facility] Hematocrit 33.7(L) 34.8 - 46.1 % 03/01/2024 6:04 PM [facility] MCV 69.9(L) 80.0 - 98.0 fL 03/01/2024 6:04 PM [facility] MCH 22.4(L) 26.7 - 33.6 pg 03/01/2024 6:04 PM [facility] MCHC 32.0 31.7 - 36.3 g/dL 03/01/2024 6:04 PM [facility] RDW-CV 18.7(H) 11.3 - 14.8 % 03/01/2024 6:04 PM [facility] Platelet Count 205 150 - 420 x10E9/L 03/01/2024 6:04 PM [facility] Neutrophil % 55.9 41.0 - 74.0 % 03/01/2024 6:04 PM [facility] Lymphocyte % 34.4 17.0 - 47.0 % 03/01/2024 6:04 PM [facility] Monocyte % 7.2 3.0 - 11.0 % 03/01/2024 6:04 PM [facility] Eosinophil % 1.6 0.0 - 7.0 % 03/01/2024 6:04 PM [facility] Basophil % 0.6 0.0 - 1.6 % 03/01/2024 6:04 PM [facility] Immature Granulocytes % 0.3 0.0 - 1.0 % 03/01/2024 6:04 PM [facility] Neutrophil Absolute 4.87 1.60 - 7.50 x10E9/L 03/01/2024 6:04 PM [facility] Lymphocyte Absolute 3.00 1.00 - 4.40 x10E9/L 03/01/2024 6:04 PM [facility] Monocyte Absolute 0.63 0.15 - 1.00 x10E9/L 03/01/2024 6:04 PM [facility] Eosinophil Absolute 0.14 0.00 - 0.60 x10E9/L 03/01/2024 6:04 PM [facility] Basophil Absolute 0.05 0.00 - 0.13 x10E9/L 03/01/2024 6:04 PM [facility] Blood BLOOD SPECIMEN / Unknown Lab Venipuncture / Unknown 03/01/2024 4:29 PM GAMING COMMISSIONER 03/01/2024 5:04 PM [facility] Mariel Short BATCH UNIT TREATER-[employer]HE[employer] LAB - HE MATOLOGY ORDERABLES [facility] [address] [place] [address] [phone] * HEPATITIS C ANTIBODY (03/01/2024 4:29 PM GAMING COMMISSIONER) [facility] Hepatitis C Antibody Non-react clif Non-reac tive 03/01/2024 5:52 PM GAMING COMMISSIONER [facility] Comment:Hepatitis C Antibody screen indicates no serologic evidence of past or current infection with Hepatitis C Virus. Patients with unexplained liver disease who are immunocompromised or suspected of having acute Hepatitis C infection may benefit from Nucleic Acid Test (JULIA) for Hepatitis C Viral RNA to confirm Hepatitis C status. Blood BLOOD SPECIMEN / Unknown Lab Venipuncture / Unknown 03/01/2024 4:29 PM GAMING COMMISSIONER 03/01/2024 4:57 PM GAMING COMMISSIONER Mariel Short [facility] - CH EMISTRY ORDERABLES Performing Organization Address [facility]/ZIP Co de Phone Number [address] [address], [facility] [phone] * HEPATITIS B CORE ANTIBODY TOTAL (03/01/2024 4:29 PM GAMING COMMISSIONER) [facility] HBc Antibody Total Non-reacti ve Non-reacti ve 03/01/2024 5:52 PM GAMING COMMISSIONER [facility] Blood BLOOD SPECIMEN / Unknown Lab Venipuncture / Unknown 03/01/2024 4:29 PM GAMING COMMISSIONER 03/01/2024 4:57 PM GAMING COMMISSIONER Mariel Short [facility] - CH EMISTRY ORDERABLES Performing Organization Address [facility]/ZIP Co de Phone Number [address] [address], [facility] [phone] * (ABNORMAL) HEPATITIS B SURFACE ANTIBODY (03/01/2024 4:29 PM GAMING COMMISSIONER) [facility] Hepatitis B Virus Surface Antibody Reactive( A) Non-react clif 03/01/2024 5:52 PM GAMING COMMISSIONER [facility] Comment: > 12 mIU/mL Hepatitis B surface Antibody (HBsAb). Reactive for HBsAb - individual is considered immune to Hepatitis B Virus infection. Hepatitis B Surface Antibody Quantitative 101.7(H) <8.0 mIU/mL 03/01/2024 5:52 PM GAMING COMMISSIONER [facility] Comment: Hepatitis B Surface Antibody Numeric Result Interpretation: ? Nonreactive: ?<8.0 mIU/mL ? Indeterminate: ??8.0 - 12.0 mIU/mL ? Reactive: ?>12.0 mIU/mL ? Blood BLOOD SPECIMEN / Unknown Lab Venipuncture / Unknown 03/01/2024 4:29 PM GAMING COMMISSIONER 03/01/2024 4:57 PM GAMING COMMISSIONER Mariel Short [facility] - CH EMISTRY ORDERABLES Performing Organization Address [facility] Co de Phone Number [address] [address], [facility] [phone] * HEPATITIS B SURFACE ANTIGEN W RFLX CONFIRMATION (03/01/2024 4:29 PM GAMING COMMISSIONER) Pathologist [facility] Hepatitis B Virus Surface Antigen Non-reacti ve Non-reacti ve 03/01/2024 5:52 PM GAMING COMMISSIONER [facility] Blood BLOOD SPECIMEN / Unknown Lab Venipuncture / Unknown 03/01/2024 4:29 PM GAMING COMMISSIONER 03/01/2024 4:57 PM GAMING COMMISSIONER Mariel Short [facility] - CH EMISTRY ORDERABLES Performing Organization Address [facility] de Phone Number [facility] [address] [place] [phone], [place] [phone] * NERI BLOOD SCREEN W/REFLEX TITER (03/01/2024 4:29 PM GAMING COMMISSIONER) NERI IgG None Detected None Detected 03/03/2024 7:09 AM GAMING COMMISSIONER [employer] [facility] ([facility]) Comment: If suspicion of connective tissue disease is strong and NERI EIA is negative, consider testing for NERI by IFA ([id number]). INTERPRETIVE INFORMATION: Anti-Nuclear Antibodies (NERI), IgG by LOUISA Antinuclear Antibodies (NERI), IgG by LOUISA: NERI specimens are screened using enzyme-linked immunosorbent assay (LOUISA) methodology. All LOUISA results reported as Detected are further tested by indirect fluorescent assay (IFA) using HEp-2 substrate with an IgG-specific conjugate. The NERI LOUISA screen is designed to detect antibodies against dsDNA, histones, SS-A (Ro), SS-B (La), Diallo, Diallo/COM WRITER, Scl-70, Cora-1, centromeric proteins, other antigens extracted from the HEp-2 cell nucleus. NERI LOUISA assays have been reported to have lower sensitivities than NERI IFA for systemic autoimmune rheumatic diseases (SARD). Negative results do not necessarily rule out SARD. Performed by [facility], [address] [place] [address] [email or web address], Junior Linares MD, Lab. Director CLIA Number: [id number] Blood BLOOD SPECIMEN / Unknown Lab Venipuncture / Unknown 03/01/2024 4:29 PM GAMING COMMISSIONER 03/01/2024 4:57 PM GAMING COMMISSIONER Mariel Short BATCH UNIT TREATER-WHEAT CLEANER LAB - EMISTRY ORDERABLES [employer] [facility]) [address] [place] [address], [facility] * QUANTIFERON-TB GOLD PLUS 4-TUBE (03/01/2024 4:29 PM GAMING COMMISSIONER) QuantiFERON Mitogen Minus NIL 10.00 IU/mL 03/04/2024 2:04 AM GAMING COMMISSIONER ARSprig [facility]) QuantiFERON Nil Value 0.00 IU/mL 03/04/2024 2:04 AM GAMING COMMISSIONER ARSprig [facility]) QuantiFERON Plus TB1 Minus NIL 0.00 <=0.34 IU/mL 03/04/2024 2:04 AM GAMING COMMISSIONER ARSprig [facility]) QuantiFERON Plus TB2 Minus NIL 0.00 <=0.34 IU/mL 03/04/2024 2:04 AM GAMING COMMISSIONER ARSpr[facility] ([facility]) QuantiFERON-TB Gold Plus Negative Negative 03/04/2024 2:04 AM GAMING COMMISSIONER [employer] [facility] ([facility]) Comment: INTERPRETIVE INFORMATION:Quantiferon TB Gold Plus Interferon [...] Mycobacterium tuberculosis Infection -- [place], 2010 (http://www.cdc.gov/mmwr/preview/mmwrhtml/fz1434i3.htm), for more information concerning test performance in low-prevalence populations and use in occupational screening. Performed By: [facility] [address] [place] [address] [employer]elly Filter Tender: Dm Mike MD, PhD CLIA Number: [id number] Blood BLOOD SPECIMEN / Unknown Lab Venipuncture / Unknown 03/01/2024 4:29 PM GAMING COMMISSIONER 03/01/2024 5:10 PM GAMING COMMISSIONER Mariel Short BATCH UNIT TREATER-[facility] LAB - EMISTRY ORDERABLES [employer] [facility] ([facility]) [address] [place] [address], [facility] * SMOOTH MUSCLE ANTIBODY W REFLEX TITER (03/01/2024 4:29 PM GAMING COMMISSIONER) F-Actin Antibody IgG 9 0 - 19 Units 03/03/2024 6:31 AM GAMING COMMISSIONER [employer] ([facility]) Comment: If F-Actin (Smooth Muscle) Antibody, IgG [...] suspicion for AIH is strong. Performed by [facility], [address] [place] [address] [email or web address], Junior Linares MD, Lab. Director [place] Number: [id number] Blood BLOOD SPECIMEN / Unknown Lab Venipuncture / Unknown 03/01/2024 4:29 PM GAMING COMMISSIONER 03/01/2024 4:57 PM GAMING COMMISSIONER Mariel Short BATCH UNIT TREATER-WHEAT CLEANER LAB - SE ROLOGY ORDERABLES [employer] ([facility]) [address] [place] [address], [facility] documented in this encounter Visit Diagnoses Diagnosis Hepatic fibrosis- Primary Cirrhosis of liver without mention of alcohol Ulcerative colitis without complications, unspecified location (HCC) Intestinal malabsorption, unspecified type (HCC) Therapeutic drug monitoring Encounter for therapeutic drug monitoring Ulcerative colitis with complication, unspecified location (HCC) documented in this encounter Care Teams Painter Hand Relationship Specialty Start Date End Date Demar Campbell MD [address] [facility] [address] [place] [address] PCP - General 08/08/17 documented as of this encounter
--- OUTSIDE RECORDS SUMMARY | 2024-03-19 00:50 | XMS_ITS | Patient Health Summary ---
Author Organization [facility] Address [address] [facility] [facility] [facility] [place] [address] Care Team Providers Care Registered Nurse Cardiac Telemetry Name Role Phone Demar Campbell MD Primary Care Provider [phone] Note from [facility],non-owned Affiliates and Associated Physician Practices is amultiple site organization consisting of ambulatory clinics and hospital sitesin [place], [place], [place] and [place]. This disclosure is being madepursuant to the Care Everywhere program and may not contain all information available regarding this patient. Last updated 17.[facility] Allergies No known active allergies Medications * Be aware that medications may not be up to date on this document. Alwaysverify current medications with the patient. * clindamycin (CLEOCIN) 1 % lotion(Started 08/22/2021) Apply to affected areas of HS/body acne twice daily when present. 11 refills by 08/22/2022 * doxycycline hyclate (VIBRAMYCIN) 100 MG tablet(Started 10/02/2021) Take 1 pill twice daily with food. Reasons: Common Acne 3 refills by 10/02/2022 * levonorgestrel (Mirena, 52 MG,) 20 MCG/DAY IUD * spironolactone (Aldactone) 100 MG tablet(Started 12/08/2021) Take 1 (one) tablet by mouth once daily * albuterol HFA (Proventil; Ventolin; Proair) 108 (90 Base) MCG/ACT inhaler (Started 12/03/2023) Inhale 1 (one) puff by mouth every 4 hours as needed for Shortness of Breath or Wheezing * folic acid (Folvite) 1 MG tablet(Started 01/30/2024) Take 1 (one) tablet by mouth once daily * polyethylene glycol 3350 (Miralax) 17 GM/SCOOP powder(Started 03/03/2024) Take 17 (seventeen) g by mouth once daily * psyllium (Metamucil) CAPS capsule(Started 03/03/2024) Take 1 (one) capsule by mouth 2 times daily for 90 days * ergocalciferol (Drisdol) 1.25 MG (87814 UT) capsule(Started 03/03/2024) Take 1 (one) capsule by mouth every 7 days for 8 doses Reasons: Vitamin D Deficiency * folic acid (Folvite) 1 MG tablet(Started 03/03/2024) Take 1 (one) tablet by mouth once daily for 90 days Reasons: Anemia From Inadequate Folic Acid * omeprazole (PriLOSEC) 40 MG capsule(Started 03/03/2024) Take 1 (one) capsule by mouth daily before breakfast for 90 days Reasons: Esophagus Inflammation with Erosion Ended Medications* cephalexin (KEFLEX) 500 MG capsule(Started 04/11/2020) (Discontinued) Take 500 mg by mouth every 12 hours * ibuprofen (MOTRIN) 800 MG tablet(Started 12/14/2019)(Discontinued) TK 1 T PO Q 6 TO 8 H WF PRN * cyclobenzaprine (FLEXERIL) 5 MG tablet(Started 07/23/2020)(Discontinued) Take 5 mg by mouth 3 times daily as needed FOR MUSCLE SPASM * oxyCODONE-acetaminophen (PERCOCET) 5-325 MG tablet(Started 07/26/2020) (Discontinued) Take 1 tablet by mouth every 6 hours as needed * HYDROcodone-acetaminophen (NORCO) 5-325 MG tablet(Started 08/16/2021) (Discontinued) Take 1 (one) tablet by mouth every 6 hours as needed pain * tretinoin (RETIN-A) 0.025 % cream(Started 08/22/2021)(Discontinued) Pea sized amount to entire face at night as tolerated. 30 days supply. 11 refills by 08/22/2022 * tretinoin (Retin-A) 0.025 % cream(Started 07/05/2020)(Discontinued) APPLY TOPICALLY TO THE AFFECTED AREA EVERY DAY * omeprazole (PriLOSEC) 20 MG capsule(Started 11/19/2023)(Discontinued) Take 1 (one) capsule by mouth 2 times daily, before breakfast and supper Active Problems Problem Noted Date Diagnosed Date Metabolic dysfunction-associ ated steatotic liver disease (MASLD) 03/01/2024 BRCA gene positive 11/25/2017 Ulcerative colitis without complications 018 Anemia 07/20/2014 Social History Tobacco Use Types Packs/Day Years [...] Comments Blood Pressure 88/63 03/03/2024 3:15 PM BELLOWS CHARGER ASSEMBLER Pulse 53 03/03/2024 3:15 PM BELLOWS CHARGER ASSEMBLER Temperature 36.4 ??C (97.6 ??F) 03/03/2024 2:30 PM CS T Respiratory Rate 11 03/03/2024 3:15 PM BELLOWS CHARGER ASSEMBLER Oxygen Saturation 100% 03/03/2024 3:15 PM BELLOWS CHARGER ASSEMBLER Inhaled Oxygen Concentration - - Weight 76.7 kg (169 lb) 03/03/2024 12:05 PM BELLOWS CHARGER ASSEMBLER Height 165.1 cm (5' 5 ) 03/03/2024 12:05 PM BELLOWS CHARGER ASSEMBLER Body Mass Index 28.12 03/03/2024 12:05 PM BELLOWS CHARGER ASSEMBLER Procedures * ENDOSCOPY, COLON, DIAGNOSTIC(Performed 03/03/2024) * PATHOLOGY TISSUE(Performed 03/03/2024) Performed for Ulcerative colitis with complication, unspecified location (HCC), Gastroesophageal reflux disease, unspecified whether esophagitis present * EGD(Performed 03/03/2024) * KS COLONOSCOPY, DIAGNOSTIC(Performed 03/03/2024) Performed for Ulcerative colitis with complication, unspecified location (HCC), Gastroesophageal reflux disease, unspecified whether esophagitis present * KS ED EGD FLEX TRANSORAL DX(Performed 03/03/2024) Performed for Ulcerative colitis with complication, unspecified location (HCC), Gastroesophageal reflux disease, unspecified whether esophagitis present * HCG URINE QUALITATIVE - POCT (IP) INTERFACED(Performed 03/03/2024) * HCG URINE QUAL POCT NOTIFICATION(Performed 03/03/2024) Performed for Pre-op exam * SMOOTH MUSCLE ANTIBODY W REFLEX TITER(Performed 03/01/2024) Performed for Hepatic fibrosis, Ulcerative colitis without complications, unspecified location (HCC), Intestinal malabsorption, unspecified type (HCC), Therapeutic drug monitoring * VITAMIN D 25-HYDROXY(Performed 03/01/2024) Performed for Hepatic fibrosis, Ulcerative colitis with complication, unspecified location (HCC), Intestinal malabsorption, unspecified type (HCC), Therapeutic drug monitoring * VITAMIN B12(Performed 03/01/2024) Performed for Hepatic fibrosis, Ulcerative colitis with complication, unspecified location (HCC), Intestinal malabsorption, unspecified type (HCC), Therapeutic drug monitoring * FERRITIN(Performed 03/01/2024) Performed for Hepatic fibrosis, Ulcerative colitis with complication, unspecified location (HCC), Intestinal malabsorption, unspecified type (HCC), Therapeutic drug monitoring * FOLATE(Performed 03/01/2024) Performed for Hepatic fibrosis, Ulcerative colitis with complication, unspecified location (HCC), Intestinal malabsorption, unspecified type (HCC), Therapeutic drug monitoring * IRON + TRANSFERRIN PANEL(Performed 03/01/2024) Performed for Hepatic fibrosis, Ulcerative colitis with complication, unspecified location (HCC), Intestinal malabsorption, unspecified type (HCC), Therapeutic drug monitoring * C-REACTIVE PROTEIN(Performed 03/01/2024) Performed for Hepatic fibrosis, Ulcerative colitis with complication, unspecified location (HCC), Intestinal malabsorption, unspecified type (HCC), Therapeutic drug monitoring * COMPREHENSIVE METABOLIC PANEL(Performed 03/01/2024) Performed for Hepatic fibrosis, Ulcerative colitis with complication, unspecified location (HCC), Intestinal malabsorption, unspecified type (HCC), Therapeutic drug monitoring * CBC W AUTO DIFFERENTIAL(Performed 03/01/2024) Performed for Hepatic fibrosis, Ulcerative colitis with complication, unspecified location (HCC), Intestinal malabsorption, unspecified type (HCC), Therapeutic drug monitoring * HEPATITIS C ANTIBODY(Performed 03/01/2024) Performed for Hepatic fibrosis, Ulcerative colitis with complication, unspecified location (HCC), Intestinal malabsorption, unspecified type (HCC), Therapeutic drug monitoring * HEPATITIS B CORE ANTIBODY TOTAL(Performed 03/01/2024) Performed for Hepatic fibrosis, Ulcerative colitis with complication, unspecified location (HCC), Intestinal malabsorption, unspecified type (HCC), Therapeutic drug monitoring * HEPATITIS B SURFACE ANTIBODY(Performed 03/01/2024) Performed for Hepatic fibrosis, Ulcerative colitis with complication, unspecified location (HCC), Intestinal malabsorption, unspecified type (HCC), Therapeutic drug monitoring * HEPATITIS B SURFACE ANTIGEN W RFLX CONFIRMATION(Performed 03/01/2024) Performed for Hepatic fibrosis, Ulcerative colitis with complication, unspecified location (HCC), Intestinal malabsorption, unspecified type (HCC), Therapeutic drug monitoring * NERI BLOOD SCREEN W/REFLEX TITER(Performed 03/01/2024) Performed for Hepatic fibrosis, Ulcerative colitis with complication, unspecified location (HCC), Intestinal malabsorption, unspecified type (HCC), Therapeutic drug monitoring * QUANTIFERON-TB GOLD PLUS 4-TUBE(Performed 03/01/2024) Performed for Hepatic fibrosis, Ulcerative colitis with complication, unspecified location (HCC), Intestinal malabsorption, unspecified type (HCC), Therapeutic drug monitoring * KS LIVER ELASTOGRAPHY(Performed 03/01/2024) Performed for Hepatic fibrosis * MAMMO BILAT SCREENING W CLEMENTE(Performed 02/09/2024) Performed for BRCA gene positive * MRI BREAST BILAT SCREENING WWO(Performed 08/04/2023) Performed for BRCA gene positive * CREATININE - POCT INTERFACED(Performed 08/04/2023) * MAMMO BILAT SCREENING W CLEMENTE(Performed 01/27/2023) Performed for BRCA gene positive * MRI BREAST BILAT SCREENING WWO(Performed 07/29/2022) Performed for BRCA gene positive * CREATININE - POCT INTERFACED(Performed 07/29/2022) * HCG URINE QUALITATIVE - POINT OF CARE (AMB)(Performed 01/23/2022) Performed for Hidradenitis suppurativa * US BREAST LEFT LTD(Performed 11/15/2021) Performed for BRCA gene positive * MAMMO BILAT SCREENING W CLEMENTE(Performed 11/15/2021) Performed for BRCA gene positive * US BREAST BILATERAL COMPLETE(Performed 04/20/2020) Performed for BRCA2 positive * MAMMO BILAT DIAGNOSTIC(Performed 04/20/2020) Performed for BRCA2 positive * KS DRAIN/INJECT LARGE JOINT/BURSA(Performed 12/24/2019) Performed for Acute pain of left knee * XR KNEE LEFT 4VW OR MORE(Performed 12/24/2019) Performed for Left knee pain, unspecified chronicity * MRI PELVIS WO CONTRAST DEFECOGRAM(Performed 05/13/2019) Performed for Ulcerative pancolitis without complication (HCC), Diarrhea, unspecified type * MRI BREAST BILAT WWO CONTRAST(Performed 05/10/2019) Performed for BRCA2 positive * MRI BREAST BILAT WO CONTRAST(Performed 05/05/2019) Performed for Lump or mass in breast * CREATININE BLOOD - POCT (IP) [facility](Performed 05/05/2019) Performed for BRCA2 positive * US BREAST RIGHT LTD(Performed 05/05/2019) Performed for BRCA2 positive * MAMMO BILAT DIAGNOSTIC(Performed 05/05/2019) Performed for BRCA2 positive * MRI ENTEROGRAPHY(Performed 04/07/2019) Performed for Ulcerative pancolitis without complication (HCC) * CREATININE BLOOD - POCT (IP) [facility](Performed 04/07/2019) Performed for Ulcerative pancolitis without complication (HCC) * IGA BLOOD(Performed 02/24/2019) Performed for Diarrhea, unspecified type * TISSUE TRANSGLUTAMINASE AB IGA(Performed 02/24/2019) Performed for Diarrhea, unspecified type * HEMOGLOBIN ELECTROPHORESIS(Performed 02/24/2019) Performed for Microcytic anemia * EGD(Performed 12/29/2018) * PATHOLOGY TISSUE(Performed 12/29/2018) Performed for Ulcerative pancolitis without complication (HCC) * KS COLONOSCOPY, DIAGNOSTIC(Performed 12/29/2018) Performed for Ulcerative pancolitis without complication (HCC) * KS ED EGD FLEX TRANSORAL DX(Performed 12/29/2018) Performed for Ulcerative pancolitis without complication (HCC) * ENDOSCOPY, COLON, DIAGNOSTIC(Performed 12/29/2018) * HCG URINE QUALITATIVE - POINT OF CARE(Performed 12/29/2018) * RBC MORPHOLOGY(Performed 12/23/2018) Performed for Ulcerative pancolitis without complication (HCC) * QUANTIFERON-TB GOLD PLUS 4-TUBE(Performed 12/23/2018) Performed for Ulcerative pancolitis without complication (HCC) * VITAMIN D 25-HYDROXY(Performed 12/23/2018) Performed for Ulcerative pancolitis without complication (HCC) * HEPATITIS B SURFACE ANTIBODY(Performed 12/23/2018) Performed for Ulcerative pancolitis without complication (HCC) * HEPATITIS B CORE ANTIBODY TOTAL(Performed 12/23/2018) Performed for Ulcerative pancolitis without complication (HCC) * HEPATITIS A ANTIBODY(Performed 12/23/2018) Performed for Ulcerative pancolitis without complication (HCC) * VITAMIN B12(Performed 12/23/2018) Performed for Ulcerative pancolitis without complication (HCC) * FOLATE(Performed 12/23/2018) Performed for Ulcerative pancolitis without complication (HCC) * TRANSFERRIN(Performed 12/23/2018) Performed for Ulcerative pancolitis without complication (HCC) * IRON BLOOD(Performed 12/23/2018) Performed for Ulcerative pancolitis without complication (HCC) * FERRITIN(Performed 12/23/2018) Performed for Ulcerative pancolitis without complication (HCC) * HEPATITIS B SURFACE ANTIGEN W RFLX CONFIRMATION(Performed 12/23/2018) Performed for Ulcerative pancolitis without complication (HCC) * C-REACTIVE PROTEIN(Performed 12/23/2018) Performed for Ulcerative pancolitis without complication (HCC) * ERYTHROCYTE SEDIMENTATION RATE(Performed 12/23/2018) Performed for Ulcerative pancolitis without complication (HCC) * COMPREHENSIVE METABOLIC PANEL(Performed 12/23/2018) Performed for Ulcerative pancolitis without complication (HCC) * CBC W AUTO DIFFERENTIAL(Performed 12/23/2018) Performed for Ulcerative pancolitis without complication (HCC) Results * ENDOSCOPY, COLON, DIAGNOSTIC (03/03/2024 1:56 PM BELLOWS CHARGER ASSEMBLER) Report Endoscopy POC Endoscopy Department Report _ [...] Procedure Code(s): ? --- Professional --- ? 41989, Colonoscopy, flexible; with biopsy, single or multiple Diagnosis Code(s): ?--- Professional --- ?K51.00, Ulcerative (chronic) pancolitis without ?complications ?K63.3, Ulcer of intestine CPT copyright 2021 [employer]. All rights reserved. The codes documented in this report are preliminary and upon hand bindery assembly worker review may be revised to meet current compliance requirements. Milka Soni MD 03/03/2024 2:39:48 PM Note Initiated On: 03/03/2024 1:56 PM Number of Addenda: 0 ? [facility] ? [address] [place], [place] [id number] [place] [address] PROVATION 03/03/2024 1:56 PM BELLOWS CHARGER ASSEMBLER Milka Soni MD GI PROCEDURE ORDERAB LES [facility] PROVATION * PATHOLOGY TISSUE (03/03/2024 1:45 PM BELLOWS CHARGER ASSEMBLER) Only the most recent of2 resultswithin the time period is included. Case Report Surgical Pathology Report ? Case: [id number] ? Authorizing Provider: ??Milka Soni MD ?Collected: ? 03/03/2024 01:49 PM ? Ordering Location: ? [facility] ENDOSCOPY ?Received: ?03/03/2024 03:06 PM ? [...] Rectal Ulcer Biopsy ? 03/04/2024 10:45 AM BELLOWS CHARGER ASSEMBLER [facility] Final Diagnosis Small intestine, [...] fibrosis, and reactive changes 03/04/2024 10:45 AM [facility] Microscopic Description and [...] bowel disease, or dysplasia. 03/04/2024 10:45 AM [facility] Clinical History The [...] rectal ulcer syndrome, biopsied. 03/04/2024 10:45 AM [facility] Gross Description The [...] aggregate, submitted in toto as cassette F1. AL 03/04/2024 10:45 AM [facility] Pathologist Location at [facility] 03/04/2024 10:45 AM [facility] Disclaimer The performance characteristics of all immunohistochemical and indirect immunofluorescence stains (if any) cited in this report were determined by the Histopathology Laboratory of [facility]. Some of these tests were developed by [...] the attending (teaching) pathologist. 03/04/2024 10:45 AM [facility] Embedded Images 03/04/2024 10:45 AM [facility] Biopsy, NOS PART OF DUODENUM / Unknown 03/03/2024 1:45 PM BELLOWS CHARGER ASSEMBLER 03/03/2024 3:06 PM BELLOWS CHARGER ASSEMBLER Comment:Pre-op diagnosis: Ulcerative colitis with complication, unspecified location (HCC) [K51.919] Gastroesophageal reflux disease, unspecified whether esophagitis present [K21.9] Biopsy, NOS GASTRIC CONTENTS SPECIMEN / Unknown 03/03/2024 1:49 PM BELLOWS CHARGER ASSEMBLER 03/03/2024 3:06 PM BELLOWS CHARGER ASSEMBLER Comment:Pre-op diagnosis: Ulcerative colitis with complication, unspecified location (HCC) [K51.919] Gastroesophageal reflux disease, unspecified whether esophagitis present [K21.9] Biopsy, NOS COLON PART / Unknown 03/03/2024 2:09 PM BELLOWS CHARGER ASSEMBLER 03/03/2024 3:06 PM BELLOWS CHARGER ASSEMBLER Comment:Pre-op diagnosis: Ulcerative colitis with complication, unspecified location (HCC) [K51.919] Gastroesophageal reflux disease, unspecified whether esophagitis present [K21.9] Biopsy, NOS COLON PART / Unknown 03/03/2024 2:12 PM BELLOWS CHARGER ASSEMBLER 03/03/2024 3:06 PM BELLOWS CHARGER ASSEMBLER Comment:Pre-op diagnosis: Ulcerative colitis with complication, unspecified location (HCC) [K51.919] Gastroesophageal reflux disease, unspecified whether esophagitis present [K21.9] Biopsy, NOS COLON PART / Unknown 03/03/2024 2:14 PM BELLOWS CHARGER ASSEMBLER 03/03/2024 3:06 PM BELLOWS CHARGER ASSEMBLER Comment:Pre-op diagnosis: Ulcerative colitis with complication, unspecified location (HCC) [K51.919] Gastroesophageal reflux disease, unspecified whether esophagitis present [K21.9] Biopsy, NOS ENTIRE RECTUM / Unknown 03/03/2024 2:17 PM BELLOWS CHARGER ASSEMBLER 03/03/2024 3:06 PM BELLOWS CHARGER ASSEMBLER Comment:Pre-op diagnosis: Ulcerative colitis with complication, unspecified location (HCC) [K51.919] Gastroesophageal reflux disease, unspecified whether esophagitis present [K21.9] Milka Soni MD LAB - PATHOLOGY/CYTO LOGY ORDERABLES Performing Organization Address [facility]/State/[facility] Co de Phone Number [facility] [address] [phone] * EGD (03/03/2024 1:30 PM BELLOWS CHARGER ASSEMBLER) Report Endoscopy POC Endoscopy Department Report _ [...] Procedure Code(s): ? --- Professional --- ? 39580, Esophagogastroduo denoscopy, flexible, transoral; with biopsy, ? single or multiple Diagnosis Code(s): ?--- Professional --- ?K44.9, Diaphragmatic hernia without obstruction or ?gangrene ?K21.00, Gastro-esophageal reflux disease with ?esophagitis, without bleeding ?K31.7, Polyp of stomach and duodenum ?R12, Heartburn CPT copyright 202 [employer]. All rights reserved. The codes documented in this report are preliminary and upon hand bindery assembly worker review may be revised to meet current compliance requirements. Milka Soni MD 03/03/2024 2:30:52 PM Note Initiated On: 03/03/2024 1:30 PM Number of Addenda: 0 ? [facility] ? [address] [place] [address] [facility] 03/03/2024 1:30 PM BELLOWS CHARGER ASSEMBLER Milka Soni MD GI PROCEDURE ORDERAB LES Performing Organization Address City/[facility]/ZIP Co de Phone Number [facility] * HCG URINE QUALITATIVE - POCT (IP) INTERFACED (03/03/2024 12:09 PM BELLOWS CHARGER ASSEMBLER) HCG Qual Urine Negative Negative 03/03/2024 12:16 PM BELLOWS CHARGER ASSEMBLER [facility] Urine URINE / Unknown 03/03/2024 1 2:09 PM BELLOWS CHARGER ASSEMBLER 03/03/2024 12:16 PM BELLOWS CHARGER ASSEMBLER Mikla Soni MD LAB - POINT OF CARE ORDERABLES Performing Organization Address [facility] Co de Phone Number [address] [address], [facility] [phone] * HCG URINE QUAL POCT NOTIFICATION (03/03/2024 11:53 AM BELLOWS CHARGER ASSEMBLER) Comment Notification Label Only - See Separate Report 03/03/2024 1:02 PM BELLOWS CHARGER ASSEMBLER [facility] Urine URINE / Unknown 03/03/2024 1 1:53 AM BELLOWS CHARGER ASSEMBLER 03/03/2024 11:53 AM BELLOWS CHARGER ASSEMBLER Milka Soni MD LAB - URINALYSIS ORD ERABLES Performing Organization Address [facility]/ZIP Co de Phone Number [address] [address], [place] [phone] * QUANTIFERON-TB GOLD PLUS 4-TUBE (03/01/2024 4:29 PM BELLOWS CHARGER ASSEMBLER) Only the most recent of2 resultswithin the time period is included. [facility] QuantiFERON Mitogen Minus NIL 10.00 IU/mL 03/04/2024 2:04 AM BELLOWS CHARGER ASSEMBLER [employer] ([facility]) QuantiFERON Nil Value 0.00 IU/mL 03/04/2024 2:04 AM BELLOWS CHARGER ASSEMBLER [facility]) QuantiFERON Plus TB1 Minus NIL 0.00 <=0.34 IU/mL 03/04/2024 2:04 AM BELLOWS CHARGER ASSEMBLER [employer] ([facility]) QuantiFERON Plus TB2 Minus NIL 0.00 <=0.34 IU/mL 03/04/2024 2:04 AM BELLOWS CHARGER ASSEMBLER [employer] ([facility]) QuantiFERON-TB Gold Plus Negative Negative 03/04/2024 2:04 AM [facility] [employer] ([facility]) Comment: INTERPRETIVE INFORMATION:Quantiferon TB Gold Plus [...] Mycobacterium tuberculosis Infection -- [place], 2010 (http://www.cdc.gov/mmwr/preview/mmwrhtml/tl4574l1.htm), for more information concerning test performance in low-prevalence populations and use in occupational screening. Performed By: [facility] [address] [place] [id number] Dry Pan Operator: Dm Mike MD, PhD CLIA Number: [id number] Blood BLOOD SPECIMEN / Unknown Lab Venipuncture / Unknown 03/01/2024 4:29 PM BELLOWS CHARGER ASSEMBLER 03/01/2024 5:10 PM BELLOWS CHARGER ASSEMBLER Mariel Short [employer] [facility] LAB - CH EMISTRY ORDERABLES [employer] ([facility]) [address] [place] [address], [facility] * SMOOTH MUSCLE ANTIBODY W REFLEX TITER (03/01/2024 4:29 PM BELLOWS CHARGER ASSEMBLER) F-Actin Antibody IgG 9 0 - 19 Units 03/03/2024 6:31 AM BELLOWS CHARGER ASSEMBLER [facility] [employer] ([facility]) Comment: If F-Actin (Smooth Muscle) Antibody, [...] suspicion for AIH is strong. Performed by [facility], [address] [place], [place] [id number] [email or web address], Junior Linares MD, Lab. Director CLIA Number: [id number] Blood BLOOD SPECIMEN / Unknown Lab Venipuncture / Unknown 03/01/2024 4:29 PM BELLOWS CHARGER ASSEMBLER 03/01/2024 4:57 PM BELLOWS CHARGER ASSEMBLER Mariel Short APRNASCENSION [facility] ROLOGY ORDERABLES [facility] [employer] [facility]) [address] [place] [address], [facility] * C-REACTIVE PROTEIN (03/01/2024 4:29 PM BELLOWS CHARGER ASSEMBLER) Only the most recent of2 resultswithin the time period is included. Pathologist [facility] C-Reactive Protein <0.5 <=0.5 mg/dL 03/01/2024 5:38 PM BELLOWS CHARGER ASSEMBLER [facility] Blood BLOOD SPECIMEN / Unknown Lab Venipuncture / Unknown 03/01/2024 4:29 PM BELLOWS CHARGER ASSEMBLER 03/01/2024 5:04 PM BELLOWS CHARGER ASSEMBLER Mariel Short APRNASCENSION ST. [facility] EMISTRY ORDERABLES Performing Organization Address City/[facility]/ZIP Co de Phone Number [address] [address], [facility] [phone] * NERI BLOOD SCREEN W/REFLEX TITER (03/01/2024 4:29 PM BELLOWS CHARGER ASSEMBLER) Pathologist [facility] NERI IgG None Detected None Detected 03/03/2024 7:09 AM BELLOWS CHARGER ASSEMBLER [facility] ([facility]) Comment: If suspicion of connective tissue disease is strong and NERI EIA is negative, consider testing for NERI by IFA ([id number]). INTERPRETIVE INFORMATION: Anti-Nuclear Antibodies (NERI), IgG by LOUISA Antinuclear Antibodies (NERI), IgG by LOUISA: NERI specimens are screened using enzyme-linked immunosorbent assay (LOUISA) methodology. All LOUISA results reported as Detected are further tested by indirect fluorescent assay (IFA) using HEp-2 substrate with an IgG-specific conjugate. The NERI LOUISA screen is designed to detect antibodies against dsDNA, histones, SS-A (Ro), SS-B (La), Diallo, Diallo/STATOR WINDER, Scl-70, Cora-1, centromeric proteins, other antigens extracted from the HEp-2 cell nucleus. NERI LOUISA assays have been reported to have lower sensitivities than NERI IFA for systemic autoimmune rheumatic diseases (SARD). Negative results do not necessarily rule out SARD. Performed by [employer], [address] [place] [address] [email or web address], Junior Linares MD, Lab. Director [place] Number: [id number] Blood BLOOD SPECIMEN / Unknown Lab Venipuncture / Unknown 03/01/2024 4:29 PM BELLOWS CHARGER ASSEMBLER 03/01/2024 4:57 PM BELLOWS CHARGER ASSEMBLER Mariel Short [employer] [facility] - CH EMISTRY ORDERABLES FORMERLY [facility] ([facility]) [address] [place] [address], [facility] * (ABNORMAL) VITAMIN D 25-HYDROXY (03/01/2024 4:29 PM BELLOWS CHARGER ASSEMBLER) Only the most recent of2 resultswithin the time period is included. [facility] Vitamin D, 25 Hydroxy 10.3(L) 30.0 - 80.0 ng/mL 03/01/2024 6:09 PM BELLOWS CHARGER ASSEMBLER [facility] Comment: The recommendations for [...] Lab Venipuncture / Unknown 03/01/2024 4:29 PM BELLOWS CHARGER ASSEMBLER 03/01/2024 5:04 PM BELLOWS CHARGER ASSEMBLER Mariel Short [employer] LAB - CH EMISTRY ORDERABLES [facility] [address] [place] [address], [facility] [phone] * (ABNORMAL) CBC W/ DIFFERENTIAL (03/01/2024 4:29 PM BELLOWS CHARGER ASSEMBLER) Only the most recent of2 resultswithin the time period is included. WBC 8.7 4.0 - 10.7 x10E9/L 03/01/2024 [...] Lab Venipuncture / Unknown 03/01/2024 4:29 PM BELLOWS CHARGER ASSEMBLER 03/01/2024 5:04 PM [facility] Mariel Short [employer] LAB - HE MATOLOGY ORDERABLES [address] [address], [facility] [phone] * (ABNORMAL) COMPREHENSIVE METABOLIC PANEL (03/01/2024 4:29 PM BELLOWS CHARGER ASSEMBLER) Only the most recent of2 resultswithin the time period is included. BUN 12 7 - 26 mg/dL 03/01/2024 [...] Lab Venipuncture / Unknown 03/01/2024 4:29 PM BELLOWS CHARGER ASSEMBLER 03/01/2024 5:04 PM BELLOWS CHARGER ASSEMBLER Mariel Short APRN-[employer] LAB - CH EMISTRY ORDERABLES Performing Organization Address City/[facility] Co de Phone Number [facility] [address] [place] [address], [facility] [phone] * (ABNORMAL) HEPATITIS B SURFACE ANTIBODY (03/01/2024 4:29 PM BELLOWS CHARGER ASSEMBLER) Only the most recent of2 resultswithin the time period is included. Hepatitis B Virus Surface Antibody Reactive( A) Non-react clif 03/01/2024 5:52 PM BELLOWS CHARGER ASSEMBLER [facility] Comment: > 12 mIU/mL Hepatitis B surface Antibody (HBsAb). Reactive for HBsAb - individual is considered immune to Hepatitis B Virus infection. Hepatitis B Surface Antibody Quantitative 101.7(H) <8.0 mIU/mL 03/01/2024 5:52 PM BELLOWS CHARGER ASSEMBLER [facility] Comment: Hepatitis B Surface Antibody Numeric Result Interpretation: ? Nonreactive: ?<8.0 mIU/mL ? Indeterminate: ??8.0 - 12.0 mIU/mL ? Reactive: ?>12.0 mIU/mL ? Blood BLOOD SPECIMEN / Unknown Lab Venipuncture / Unknown 03/01/2024 4:29 PM BELLOWS CHARGER ASSEMBLER 03/01/2024 4:57 PM BELLOWS CHARGER ASSEMBLER Mariel Short APRN-[employer] LAB - CH EMISTRY ORDERABLES [facility] [address] [place] [address], [facility] [phone] * HEPATITIS B CORE ANTIBODY TOTAL (03/01/2024 4:29 PM BELLOWS CHARGER ASSEMBLER) Only the most recent of2 resultswithin the time period is included. HBc Antibody Total Non-reacti ve Non-reacti ve 03/01/2024 5:52 PM BELLOWS CHARGER ASSEMBLER [facility] Blood BLOOD SPECIMEN / Unknown Lab Venipuncture / Unknown 03/01/2024 4:29 PM BELLOWS CHARGER ASSEMBLER 03/01/2024 4:57 PM BELLOWS CHARGER ASSEMBLER [facility] EMISTRY ORDERABLES Performing Organization Address City/[facility]/ZIP Co de Phone Number [address] [address], [facility] [phone] * HEPATITIS B SURFACE ANTIGEN W RFLX CONFIRMATION (03/01/2024 4:29 PM BELLOWS CHARGER ASSEMBLER) Only the most recent of2 resultswithin the time period is included. Hepatitis B Virus Surface Antigen Non-reacti ve Non-reacti ve 03/01/2024 5:52 PM BELLOWS CHARGER ASSEMBLER [facility] Blood BLOOD SPECIMEN / Unknown Lab Venipuncture / Unknown 03/01/2024 4:29 PM BELLOWS CHARGER ASSEMBLER 03/01/2024 4:57 PM BELLOWS CHARGER ASSEMBLER [facility] [employer] EMISTRY ORDERABLES Performing Organization Address [facility] Co de Phone Number [address] [address], [facility] [phone] * (ABNORMAL) FOLATE (03/01/2024 4:29 PM BELLOWS CHARGER ASSEMBLER) Only the most recent of2 resultswithin the time period is included. Folate 5.9(L) 7.0 - 31.4 ng/mL 03/01/2024 6:09 PM BELLOWS CHARGER ASSEMBLER [facility] Blood BLOOD SPECIMEN / Unknown Lab Venipuncture / Unknown 03/01/2024 4:29 PM BELLOWS CHARGER ASSEMBLER 03/01/2024 5:04 PM BELLOWS CHARGER ASSEMBLER [facility] - CH EMISTRY ORDERABLES Performing Organization Address City/[facility]/ZIP Co de Phone Number [address] [address], [facility] [phone] * (ABNORMAL) VITAMIN B12 (03/01/2024 4:29 PM BELLOWS CHARGER ASSEMBLER) Only the most recent of2 resultswithin the time period is included. [facility] Vitamin B12 822(H) 213 - 816 pg/mL 03/01/2024 6:09 PM BELLOWS CHARGER ASSEMBLER [facility] Blood BLOOD SPECIMEN / Unknown Lab Venipuncture / Unknown 03/01/2024 4:29 PM BELLOWS CHARGER ASSEMBLER 03/01/2024 5:04 PM BELLOWS CHARGER ASSEMBLER Mariel Short [facility] LAB - CH EMISTRY ORDERABLES [address] [address], [facility] [phone] * (ABNORMAL) IRON + TRANSFERRIN PANEL [w/Transferrin Sat % + TIBC] (03/01/2024 4:29 PM BELLOWS CHARGER ASSEMBLER) [facility] Iron 88 40 - 150 ug/dL 03/01/2024 5:33 PM BELLOWS CHARGER ASSEMBLER [facility] Transferrin 185 174 - 382 mg/dL 03/01/2024 5:33 PM [facility] Transferrin Saturation % 38 16 - 50 % 03/01/2024 5:33 PM [facility] TIBC Calculated 231(L) 240 - 450 ug/dL 03/01/2024 5:33 PM BELLOWS CHARGER ASSEMBLER [facility] Blood BLOOD SPECIMEN / Unknown Lab Venipuncture / Unknown 03/01/2024 4:29 PM BELLOWS CHARGER ASSEMBLER 03/01/2024 4:57 PM BELLOWS CHARGER ASSEMBLER [facility] E[facility] ORDERABLES [address] [address], [facility] [phone] * HEPATITIS C ANTIBODY (03/01/2024 4:29 PM BELLOWS CHARGER ASSEMBLER) [facility] Hepatitis C Antibody Non-react clif Non-reac tive 03/01/2024 5:52 PM BELLOWS CHARGER ASSEMBLER [facility] Comment:Hepatitis C Antibody screen indicates no serologic evidence of past or current infection with Hepatitis C Virus. Patients with unexplained liver disease who are immunocompromised or suspected of having acute Hepatitis C infection may benefit from Nucleic Acid Test (JULIA) for Hepatitis C Viral RNA to confirm Hepatitis C status. Blood BLOOD SPECIMEN / Unknown Lab Venipuncture / Unknown 03/01/2024 4:29 PM BELLOWS CHARGER ASSEMBLER 03/01/2024 4:57 PM BELLOWS CHARGER ASSEMBLER Mariel Short [facility] LAB - CH EMISTRY ORDERABLES Performing Organization Address City/[facility]/ZIP Co de Phone Number [facility] [address] [place] [address], [facility] [phone] * (ABNORMAL) FERRITIN (03/01/2024 4:29 PM BELLOWS CHARGER ASSEMBLER) Only the most recent of2 resultswithin the time period is included. Ferritin 355(H) 13 - 204 ng/mL 03/01/2024 5:52 PM BELLOWS CHARGER ASSEMBLER [facility] Blood BLOOD SPECIMEN / Unknown Lab Venipuncture / Unknown 03/01/2024 4:29 PM BELLOWS CHARGER ASSEMBLER 03/01/2024 4:57 PM BELLOWS CHARGER ASSEMBLER [facility] EMI[facility] ORDERABLES Performing Organization Address [facility] Co de Phone Number [facility] [address] [place] [address], [place] [phone] * [place] LIVER ELASTOGRAPHY (03/01/2024 3:55 PM BELLOWS CHARGER ASSEMBLER) Narrative Eligio Ayala MD - 03/01/2024 3:55 PM BELLOWS CHARGER ASSEMBLER Eligio Ayala MD ? 03/03/2024 ??6:26 PM [...] are based on the following published data: Capmos PJ, Elle M, Trice M, et al. Accuracy of FibroScan controlled attenuation parameter and liver stiffness measurement in assessing steatosis and fibrosis in patients with nonalcoholic fatty liver disease. Gastroenterology 2019;156:0757-3280. Zeeshan MS, Carmina R, Van Natta ML, et al. Vibration-controlled transient elastography to [...] (Jazmin, 202). Rodolfo TA, Van Natta ML, Ashleigh M, Rocco A, et al. Validation of the accuracy of the FAST score for detecting patients with at-risk nonalcoholic steatohepatitis (PARADA) in a [place] cohort and comparison to other non-invasive algorithms. PLoS ONE (2021) 17: o1829590. Jazmin ELENA, Sara J, Primo FERGUSON, et al. Enhanced diagnosis of advanced fibrosis and cirrhosis in individuals with NAFLD using FibroScan-based Agile scores. J Hepatol (2022) 78: 247-259. Fibroscan LSM can also be used with laboratory parameters without formulas to assess prognosis. According to the Baveno-VII criteria (Cunha, 202), Fibroscan LSM <=15 kPa plus a platelet count of >=315k063/L rules out clinically significant portal hypertension (sensitivity and negative predictive value >90%) in patients with compensated advanced chronic liver disease. Cunha R, Norman J, Sulema G, Sanjeev T, Douglas Armas on behalf of the Baveno VII Faculty. Baveno VII--Renewing consensus in portal hypertension. J Hepatol (2021) 76: 959-974 Assessing the likelihood of advanced fibrosis in patients with intermediate liver stiffness measurement (LSM) by Fibroscan (e.g., 8-15 kPa) can be improved by also calculating the FIB-4 score (Ashly et al. Hepatology Communications 2019;3:6518-2548) or NAFLD Fibrosis score (Rodgers et al. Clinical Gastroenterology and Hepatology 2019;17:4237-3945 using ??routine clinical data. Note: 1. Fibroscan [...] additional interpretive data was last updated 07/20/22.) [email or web address] Mariel Short [employer] PROCEDUR E/MINOR SURGICAL ORDERABLES * MAMMO BILAT SCREENING W CLEMENTE (02/09/2024 10:58 AM BELLOWS CHARGER ASSEMBLER) Only the most recent of3 resultswithin the time period is included. Anatomical Region Laterality Modality Breast Bilateral Mammography 02/09/2024 10:5 8 AM BELLOWS CHARGER ASSEMBLER Impressions 02/09/2024 11:02 AM BELLOWS CHARGER ASSEMBLER IMPRESSION: ??No mammographic evidence of malignancy. Extremely dense breast parenchyma. RECOMMENDATION: 1. Screening mammography in one year, pending no interval breast concerns. 2. Annual screening breast MRI is recommended, given the history of a BRCA2 gene mutation, according to the [place] [employer] guidelines. Her next exam is due in July 2024. Patient was notified of the results at the time of the exam and will see Dr. Dueñas in the breast clinic today. Patient will also receive the exam results by lay letter. OVERALL ASSESSMENT: ??BI-RADS CATEGORY 1: NEGATIVE. > Interpreting Provider: Funmilayo Queen MD, FACR on 02/09/2024 11:02 AM Narrative 02/09/2024 11:02 AM BELLOWS CHARGER ASSEMBLER EXAMINATIONS: ??BILATERAL DIGITAL SCREENING MAMMOGRAM AND BILATERAL BREAST TOMOSYNTHESIS LOCATION: [facility] EXAM DATE: ??02/09/2024 HISTORY: ??Screening. Patient has [...] prior. ?? Linda Dueñas MD MAMMO ORDERABLES * MRI BREAST BILAT SCREENING WWO (08/04/2023 11:58 AM CDT) Only the most recent of2 resultswithin the time period is included. Anatomical Region Laterality Modality Breast Bilateral Magnetic Resonan ce 08/04/2023 12:1 2 PM CDT Impressions 08/04/2023 12:54 PM CDT : No bilateral breast MRI evidence of malignancy. ?? RECOMMENDATION: ?? 1. Screening mammography is due in January 2024. 2. Given the history of a BRCA2 gene mutation and the elevated lifetime risk of developing breast cancer of greater than 20 %, screening breast MRI is recommended in 1 year. Patient will receive breast MRI results from Dr. Dueñas. OVERALL ASSESSMENT: ??BI-RADS CATEGORY 1: NEGATIVE. > Interpreting Provider: Funmilayo Queen MD on 08/04/2023 12:54 PM Narrative 08/04/2023 12:54 PM CDT EXAM: ??BILATERAL SCREENING BREAST MRI WITH AND WITHOUT CONTRAST WITH DYNACAD ANALYSIS LOCATION: [facility] EXAM DATE: ??08/04/2023 HISTORY: ?Screening. This is a 38-year-old female with a history of a BRCA2 gene mutation, with lifetime risk of developing breast cancer greater than 20%. Patient reports history of BRCA gene mutation in her mother in her sister also. Cancer Extremely dense breast parenchyma. Last menstrual period: Patient states she is no longer demonstrating. COMPARISON: ?? Prior breast MRI scans 07/29/2022 and 05/10/2019 as well as mammogram 01/27/2023. Also compare with outside breast MRI scan from [facility] dated 10/23/2016 and outside breast MRI also from [facility] dated 12/25/2017. CONTRAST: ??14 cc Dotarem IV. TECHNICAL INFORMATION: ??Study performed on a 3.0 Merlyn magnet. A breast coil was utilized. ??Bilateral axial T1 and axial STIR images obtained, followed by axial 3-D gradient T1 fat sat and sagittal 3-D gradient T1 fat-sat images precontrast. After the administration of contrast, 2 postcontrasted 3D gradient axial T1 fat sat -series were obtained dynamically, one at 90 seconds and the other at 5-6 minutes after contrast administration. Between the two 3-D axial T1 weighted fat-sat postcontrasted images, a sagittal 3-D gradient T1 fat-sat series was performed of each breast. Subtraction was performed of the 2 axial 3-D gradient T1 weighted postcontrast images. Images were reviewed on a workstation with 3D post processing and [employer] was utilized. FINDINGS: Parenchymal breast pattern: Extreme fibroglandular tissue. Background parenchymal enhancement: Mild ?Enhancement is Symmetric. Right breast: ??There is no suspicious enhancement or evidence of malignancy. There is small subcentimeter benign cysts in the breast. No abnormal enhancement of the nipple areolar complex or the visualized chest wall. No enlarged axillary or internal mammary lymph nodes. Left breast: ??There is no suspicious enhancement or evidence of malignancy. There are small subcentimeter benign cysts in the breast. No abnormal enhancement of the nipple areolar complex or the visualized chest wall. No enlarged axillary or internal mammary lymph nodes. Linda Dueñas MD MR ORDERABLES * CREATININE - POCT INTERFACED (08/04/2023 11:18 AM CDT) Only the most recent of2 resultswithin the time period is included. Creatinine POCT 0.61 0.30 - 1.30 mg/dL 08/04/2023 11:22 AM CDT [facility] eGFR >90 >=90 mL/min/1.7 3 m2 08/04/2023 11:22 AM CDT [facility] Blood BLOOD SPECIMEN / Unknown 08/04/2023 11:18 AM CDT 08/04/2023 11:22 AM CDT Linda Dueñas MD LAB - POINT OF CARE ORDERABLES [facility] [address] [place] [address], [facility] [phone] * HCG URINE QUALITATIVE - POINT OF CARE (AMB) (01/23/2022) HCG Qual Urine Negative Negative QC Verified Yes Yes Urine URINE / Unknown 01/23/2022 Florinda Montenegro MD LAB - POINT OF CARE ORDERABLES * US BREAST LEFT LTD (11/15/2021 11:01 AM CDT) Anatomical Region Laterality Modality Breast Left Mammography 11/15/2021 10:5 6 AM CDT Impressions 11/15/2021 10:57 AM CDT IMPRESSION: ??No targeted left sonographic evidence of malignancy. RECOMMENDATION: ?? 1. Screening mammography in one year, pending no interval breast concerns. 2. Given her elevated lifetime risk of developing breast cancer greater than 20%, screening breast MRI is recommended, according to the [place] Cancer [employer] guidelines. This could be alternated at 6 month intervals with mammography performed at the time of screening mammography. Patient is scheduled to see Dr. Dueñas breast clinic today. Dr. Queen discussed the ultrasound findings and recommendations with the patient the time of her exam. OVERALL ASSESSMENT: ??BI-RADS CATEGORY 1: NEGATIVE. > Interpreting Provider: Funmilayo Queen MD on 11/15/2021 10:57 AM Narrative 11/15/2021 10:57 AM CDT EXAMINATION: US BREAST LEFT LTD DATE: ??11/15/2021 HISTORY: History of BRCA2 gene mutation. Possible slight flattening of the left periareolar region on mammography. Patient states she stopped nursing approximately one year ago. COMPARISON: Mammogram 11/15/2021 and prior studies back to 2019. TECHNIQUE: Targeted ultrasound of the left breast performed with attention the periareolar region. FINDINGS: Ultrasound is normal, without mass. No suspicious finding. Linda Dueñas MD US ORDERABLES * US BREAST BILATERAL COMPLETE (04/20/2020 12:12 PM BELLOWS CHARGER ASSEMBLER) Anatomical Region Laterality Modality Breast Bilateral Mammography 04/20/2020 12:1 3 PM BELLOWS CHARGER ASSEMBLER Impressions 04/20/2020 5:06 PM BELLOWS CHARGER ASSEMBLER IMPRESSION: No bilateral diagnostic mammographic or bilateral complete sonographic evidence of malignancy. Small benign sebaceous cysts noted in the right breast 2:00 region as well as in the right axilla. RECOMMENDATION: 1. Clinical follow-up of the sebaceous cysts in the right breast/axilla. Patient will be seen in the breast clinic today. 2. Screening mammography in one year, pending no interval breast concerns. 3. Given her history of a BRCA2 gene mutation, screening breast MRI is recommended as an adjunct to screening mammography and could be performed in 6 months, if patient is no longer breast feeding. If she is breast feeding at that time, then complete breast ultrasound could be performed as an adjunct to screening mammography, until she ceases breast-feeding. I discussed the mammogram and ultrasound findings and recommendations with the patient the time of her exam. FINAL BI-RADS CATEGORY 2: BENIGN This report was electronically signed by FUNMILAYO QUEEN M.D. ??on 04/20/2020 5:06 PM . Narrative 04/20/2020 5:06 PM BELLOWS CHARGER ASSEMBLER EXAM: ??MAMMO BILAT DIAGNOSTIC WITH 3D AND WITH CAD AND COMPLETE ??BILATERAL BREAST ULTRASOUND (COMBINED REPORT) DATE OF EXAM: 04/20/2020 11:15 AM HISTORY: This is a 34-year-old female with a history of BRCA2 gene mutation. Patient reports lump in the upper inner quadrant of the right breast and in the right axilla. Patient has been on antibiotics for presumed sebaceous cysts. Patient is breast-feeding. COMPARISON: Prior mammograms 04/15/2016 and 05/05/2019. Also compare with prior breast MRI 05/05/2019 and breast ultrasound 05/05/2019. MAMMOGRAPHY TECHNICAL INFORMATION: Diagnostic Bilateral mammogram obtained with full-field digital mammography. Tomosynthesis (3-D) and reconstructed C- view (synthetic 2-D) images acquired and reviewed as part of this examination. ??Bilateral craniocaudal, mediolateral oblique images were obtained. Triangular marker was placed on the inner aspect of the right breast were patient has a lump/sebaceous cyst. Triangular marker also placed in the right axillary region were patient feels a lump. CAD was utilized. FINDINGS: Mammogram: Breast composition: Category ??D: Extremely dense, which lowers the sensitivity of mammography. No suspicious findings on bilateral diagnostic mammography. No suspicious microcalcification or mass. Ultrasound: Complete bilateral breast ultrasound: Ultrasound of the bilateral breasts with scanning of all 4 quadrants, the subareolar region, and the axilla was performed. I also scanned the patient. Scanning also performed with attention to the palpable lump in the upper inner quadrant of the right breast as well as the right axilla. Left side: Ultrasound is unremarkable. There is no mass. Unremarkable appearing locule noted in the 10:00 region, 1 cm from the nipple. No enlarged axillary lymph nodes. Right side: At 2:00, 5 cm from the nipple and corresponding with her palpable lump/skin changes is a 2.1 x 1.6 x 0.3 cm oval hypoechoic lesion within the skin with surrounding hyperemia. This is compatible with a sebaceous cyst. In the right axilla and corresponding with the palpable lump is a oval 1.3 x 1.9 x 0.3 cm hypoechoic lesion within the skin, compatible with a benign sebaceous cyst. Again, there is increased vascularity surrounding this area. No enlarged axillary lymph nodes. Linda Dueñas MD US ORDERABLES * MAMMO BILAT DIAGNOSTIC (04/20/2020 11:14 AM BELLOWS CHARGER ASSEMBLER) Only the most recent of2 resultswithin the time period is included. Anatomical Region Laterality Modality Breast Bilateral Mammography 04/20/2020 12:1 3 PM BELLOWS CHARGER ASSEMBLER Impressions 04/20/2020 5:06 PM BELLOWS CHARGER ASSEMBLER IMPRESSION: No bilateral diagnostic mammographic or bilateral complete sonographic evidence of malignancy. Small benign sebaceous cysts noted in the right breast 2:00 region as well as in the right axilla. RECOMMENDATION: 1. Clinical follow-up of the sebaceous cysts in the right breast/axilla. Patient will be seen in the breast clinic today. 2. Screening mammography in one year, pending no interval breast concerns. 3. Given her history of a BRCA2 gene mutation, screening breast MRI is recommended as an adjunct to screening mammography and could be performed in 6 months, if patient is no longer breast feeding. If she is breast feeding at that time, then complete breast ultrasound could be performed as an adjunct to screening mammography, until she ceases breast-feeding. I discussed the mammogram and ultrasound findings and recommendations with the patient the time of her exam. FINAL BI-RADS CATEGORY 2: BENIGN This report was electronically signed by FUNMILAYO QUEEN M.D. ??on 04/20/2020 5:06 PM . Narrative 04/20/2020 5:06 PM BELLOWS CHARGER ASSEMBLER EXAM: ??MAMMO BILAT DIAGNOSTIC WITH 3D AND WITH CAD AND COMPLETE ??BILATERAL BREAST ULTRASOUND (COMBINED REPORT) DATE OF EXAM: 04/20/2020 11:15 AM HISTORY: This is a 34-year-old female with a history of BRCA2 gene mutation. Patient reports lump in the upper inner quadrant of the right breast and in the right axilla. Patient has been on antibiotics for presumed sebaceous cysts. Patient is breast-feeding. COMPARISON: Prior mammograms 04/15/2016 and 05/05/2019. Also compare with prior breast MRI 05/05/2019 and breast ultrasound 05/05/2019. MAMMOGRAPHY TECHNICAL INFORMATION: Diagnostic Bilateral mammogram obtained with full-field digital mammography. Tomosynthesis (3-D) and reconstructed C- view (synthetic 2-D) images acquired and reviewed as part of this examination. ??Bilateral craniocaudal, mediolateral oblique images were obtained. Triangular marker was placed on the inner aspect of the right breast were patient has a lump/sebaceous cyst. Triangular marker also placed in the right axillary region were patient feels a lump. CAD was utilized. FINDINGS: Mammogram: Breast composition: Category ??D: Extremely dense, which lowers the sensitivity of mammography. No suspicious findings on bilateral diagnostic mammography. No suspicious microcalcification or mass. Ultrasound: Complete bilateral breast ultrasound: Ultrasound of the bilateral breasts with scanning of all 4 quadrants, the subareolar region, and the axilla was performed. I also scanned the patient. Scanning also performed with attention to the palpable lump in the upper inner quadrant of the right breast as well as the right axilla. Left side: Ultrasound is unremarkable. There is no mass. Unremarkable appearing locule noted in the 10:00 region, 1 cm from the nipple. No enlarged axillary lymph nodes. Right side: At 2:00, 5 cm from the nipple and corresponding with her palpable lump/skin changes is a 2.1 x 1.6 x 0.3 cm oval hypoechoic lesion within the skin with surrounding hyperemia. This is compatible with a sebaceous cyst. In the right axilla and corresponding with the palpable lump is a oval 1.3 x 1.9 x 0.3 cm hypoechoic lesion within the skin, compatible with a benign sebaceous cyst. Again, there is increased vascularity surrounding this area. No enlarged axillary lymph nodes. Linda Dueñas MD MAMMO ORDERABLES * KS DRAIN/INJECT LARGE JOINT/BURSA (12/24/2019 1:38 PM CDT) Narrative Trice Lee PA - 12/24/2019 1:38 PM CDT Trice Lee PA ? 12/24/2019 ??1:47 PM Right Knee Injection: Patient placed in seated position with knee at 90 degrees. Skin cleansed with betadine and isopropyl alcohcol. Ethyl Chloride used to anesthetize skin. Joint accessed via anterolateral portal with 21g needle. Syringe aspirated with no bloody show. A combination of 3cc 1% lidocaine and 1cc 40mg/mL Kenalog infused into the joint. Needle removed and bandage placed. Patient tolerated the procedure well. Trice GONZALES PROCEDURE/MINOR SURG ICAL ORDERABLES * XR KNEE LEFT 4VW OR MORE (12/24/2019 1:13 PM CDT) Anatomical Region Laterality Modality Lower Extremity Radiographic Tia ging 12/24/2019 2:45 PM CDT Impressions 12/24/2019 2:48 PM CDT IMPRESSION: 1. Mild contour depression at the lateral aspect of the lateral femoral condyle articular surface on the AP view. The could be posttraumatic or due to anatomic variant. 2. Small effusion. This report was electronically signed by PATRICK BROWN MD ??on 12/24/2019 2:48 PM . Narrative 12/24/2019 2:48 PM CDT Exam: ??XR KNEE LEFT 4VW History: ??M25.562: Left knee pain, unspecified chronicity Comparison: None. Findings: There is mild contour depression at the lateral aspect of the lateral femoral condyle articular surface on the AP view which could be posttraumatic or due to anatomic variant. There is otherwise no evidence of fracture or dislocation. The joint spaces are normal. A small effusion is noted. Procedure Note Patrick Brown MD - 12/24/2019 Exam: XR KNEE LEFT 4VW History: M25.562: Left knee pain, unspecified chronicity Comparison: None. Findings: There is mild contour depression at the lateral aspect of the lateral femoral condyle articular surface on the AP view which could be posttraumatic or due to anatomic variant. There is otherwise no evidence of fracture or dislocation. The joint spaces are normal. A smalleffusion is noted. IMPRESSION: 1. Mild contour depression at the lateral aspect of the lateral femoral condyle articular surface on the AP view. The could be posttraumatic or due to anatomic variant. 2. Small effusion. This report was electronically signed by PATRICK BROWN MD on12/24/2019 2:48 PM . Trice GONZALES DIAGNOSTIC IMAGING O RDERABLES * MRI PELVIS WO CONTRAST DEFECOGRAM (05/13/2019 3:40 PM BELLOWS CHARGER ASSEMBLER) Anatomical Region Laterality Modality Pelvis Magnetic Resonan ce 05/13/2019 3:32 PM BELLOWS CHARGER ASSEMBLER Impressions 05/18/2019 8:37 AM BELLOWS CHARGER ASSEMBLER IMPRESSION: 1. Difficulty initiating defecation. Significant descent of the pelvic floor during attempted defecation with incomplete emptying of the rectum. 2. Mild rectal wall thickening, possibly related to prior inflammation. Dictated by Radha Azul MD (engineering vice president). I, Dr. JUNE NAVA M.D. have personally reviewed and interpreted this examination/study. This report was electronically signed by JUNE NAVA M.D. ??on 05/18/2019 8:37 AM . Narrative 05/18/2019 8:37 AM BELLOWS CHARGER ASSEMBLER EXAMINATION: Magnetic resonance imaging (MRI) defecography of the pelvis with rectal contrast HISTORY: History of ulcerative colitis, irritable bowel syndrome, and hemorrhoids. Study indicated to rule out rectal prolapse. TECHNIQUE: MRI of the pelvis was performed following the uneventful instillation of 300 mL of viscous jelly into the patient's rectum according to a defecography protocol. COMPARISON: MRI Enterography dated 04/05/2019 FINDINGS: The levator hiatus descends for a distance of 3.1 cm below the pubococcygeal line. There is normal sharpening of the anorectal angle and elevation of the pelvic floor with the vagal maneuver. Cine sequences during the defecation maneuver demonstrate difficulty initiating defecation and incomplete emptying of the rectum. There is significant descent of the pelvic floor during attempted defecation. No rectal prolapse or rectal intussusception is seen during the defecation maneuver. No bladder neck distention or bladder base descent is seen during straining maneuvers to indicate a cystocele. No vaginal descent is seen. No anterior rectal wall bulge is seen to suggest a rectocele. The anterior rectal wall is closely opposed to the posterior vagina. No interposition of peritoneal contents, such as a peritoneocele, mesenterocele, enterocele, or sigmoidocele is identified. A small external hemorrhoid is identified (series 7 image 78). The rectal wall appears mildly thickened without evidence of inflammatory changes in the mesorectal fat. The bladder is nondistended with fluid and appears normal. The uterus and adnexa appear normal. No free pelvic fluid is identified. Procedure Note June Nava MD - 05/18/2019 EXAMINATION: Magnetic resonance imaging (MRI) defecography of the pelvis with rectal contrast HISTORY: History of ulcerative colitis, irritable bowel syndrome, and hemorrhoids. Study indicated to rule out rectal prolapse. TECHNIQUE: MRI of the pelvis was performed following the uneventful instillation of 300 mL of viscous jelly into the patient's rectum according to a defecography protocol. COMPARISON: MRI Enterography dated 04/05/2019 FINDINGS: The levator hiatus descends for a distance of 3.1 cm below the pubococcygeal line. There is normal sharpening of the anorectal angleand elevation of the pelvic floor with the vagal maneuver. Cine sequences during the defecation maneuver demonstrate difficulty initiating defecation and incomplete emptying of the rectum. There is significant descent of the pelvic floor during attempted defecation. No rectal prolapse or rectal intussusception is seen during the defecationmaneuver. No bladder neck distention or bladder base descent is seen during straining maneuvers to indicate a cystocele. No vaginal descent is seen. No anterior rectal wall bulge is seen to suggest a rectocele. Theanterior rectal wall is closely opposed to the posterior vagina. No interposition of peritoneal contents, such as a peritoneocele, mesenterocele, enterocele, or sigmoidocele is identified. A small external hemorrhoidis identified (series 7 image 78). The rectal wall appears mildly thickened without evidence ofinflammatory changes in the mesorectal fat. The bladder is nondistended with fluidand appears normal. The uterus and adnexa appear normal. No free pelvicfluid is identified. IMPRESSION: 1. Difficulty initiating defecation. Significant descent of the pelvic floor during attempted defecation with incomplete emptying of therectum. 2. Mild rectal wall thickening, possibly related to prior inflammation. Dictated by Radha Azul MD (engineering vice president). Dr. JUNE Nair M.D. have personally reviewed and interpreted this examination/study. This report was electronically signed by JUNE NAVA M.D. on05/18/2019 8:37 AM . Mara Latif MD MR ORDERABLES * MRI BREAST BILAT WWO CONTRAST (05/10/2019 11:06 AM BELLOWS CHARGER ASSEMBLER) Anatomical Region Laterality Modality Breast Bilateral Magnetic Resonan ce 05/10/2019 2:10 PM BELLOWS CHARGER ASSEMBLER Impressions 05/10/2019 3:19 PM BELLOWS CHARGER ASSEMBLER IMPRESSION: Limited evaluation due to to marked background parenchymal enhancement and lactational status. The previously noted findings are not appreciated on this exam. ASSESSMENT: BI-RADS Category 2: Benign finding(s). RECOMMENDATION: While the patient is breast-feeding, bilateral whole breast ultrasound may be the best tool for supplemental screening. Otherwise, annual mammography and annual high-risk screening breast MRI would be recommended. Dr. GALE Nair M.D. have personally reviewed and interpreted this examination/study. This report was electronically signed by GALE NELSON M.D. ??on 05/10/2019 3:19 PM . Narrative 05/10/2019 3:19 PM BELLOWS CHARGER ASSEMBLER BILATERAL BREAST MRI HISTORY: ??33-year-old with a BRCA2 mutation referred for annual high risk screening breast MRI. She is breast-feeding her 2-year-old twins. She underwent breast MRI at [facility] on 10/23/2016. A 3 mm enhancing focus in the central left breast was identified and considered indeterminate. MR guided biopsy was recommended. However, biopsy was not performed because the patient became . On the 11/25/2017 breast imaging report from [facility], bilateral breast MRI was recommended for high-risk screening as well as to reassess the indeterminate focus in the left breast and to assist in assessing the right breast mass identified on mammography and ultrasound. On 12/25/2017, she underwent breast MRI at [facility]. It was considered limited due to marked background parenchymal enhancement and the patient's lactational status. The previously described indeterminate 3 mm enhancing focus in the central left breast was not appreciated on the 2018 MRI. There was no MR correlate for the 2 cm mass in the lateral right breast identified on recent mammogram and ultrasound. Follow-up MRI in one year or 6-8 weeks after discontinuation of , which ever happens first, was recommended. COMPARISON: Comparison was made to previous bilateral breast MRI dated 10/23/2016 and 12/25/2017, bilateral mammogram dated 05/05/2019, right breast ultrasound dated 05/05/2019 TECHNIQUE: Multiplanar multisequence MR imaging of both breasts before and following the administration of 10 cc of Gadavist. Dynamic phase imaging was performed in the axial plane. Exam was processed by and interpreted on a [employer] equipment monitor phototypesetting including 3-D volume rendering, subtraction image processing and contrast kinetic analysis. FINDINGS: Background tissue pattern: Extreme fibroglandular tissue. Degree of background parenchymal enhancement: Marked, symmetric background enhancement limits evaluation. RIGHT BREAST: Within the limitations of the exam, there is no suspicious mass or area of abnormal enhancement in the right breast. Specifically, there is no correlate for the mass previously identified on mammography and ultrasound of the right breast. The single prominent low right axillary lymph node is likely reactive. There is no abnormality of the right axilla, chest wall, or nipple areolar complex. LEFT BREAST: No suspicious mass or area of abnormal enhancement in the left breast. Specifically, the 0.3 cm focus identified in the central left breast on 2017 MRI is not appreciated on today's exam. There is no abnormality of the left axilla, chest wall, or nipple areolar complex. EXTRAMAMMARY FINDINGS: None. Linda Dueñas MD MR ORDERABLES * MRI BREAST BILAT WO CONTRAST (05/05/2019 3:11 PM BELLOWS CHARGER ASSEMBLER) Anatomical Region Laterality Modality Breast Bilateral Magnetic Resonan ce 05/10/2019 2:10 PM BELLOWS CHARGER ASSEMBLER Impressions 05/10/2019 3:19 PM BELLOWS CHARGER ASSEMBLER IMPRESSION: Limited evaluation due to to marked background parenchymal enhancement and lactational status. The previously noted findings are not appreciated on this exam. ASSESSMENT: BI-RADS Category 2: Benign finding(s). RECOMMENDATION: While the patient is breast-feeding, bilateral whole breast ultrasound may be the best tool for supplemental screening. Otherwise, annual mammography and annual high-risk screening breast MRI would be recommended. I, Dr. GALE NELSON M.D. have personally reviewed and interpreted this examination/study. This report was electronically signed by GALE NELSON M.D. ??on 05/10/2019 3:19 PM . Narrative 05/10/2019 3:19 PM BELLOWS CHARGER ASSEMBLER BILATERAL BREAST MRI HISTORY: ??33-year-old with a BRCA2 mutation referred for annual high risk screening breast MRI. She is breast-feeding her 2-year-old twins. She underwent breast MRI at [facility] on 10/23/2016. A 3 mm enhancing focus in the central left breast was identified and considered indeterminate. MR guided biopsy was recommended. However, biopsy was not performed because the patient became . On the 11/25/2017 breast imaging report from [facility], bilateral breast MRI was recommended for high-risk screening as well as to reassess the indeterminate focus in the left breast and to assist in assessing the right breast mass identified on mammography and ultrasound. On 12/25/2017, she underwent breast MRI at [facility]. It was considered limited due to marked background parenchymal enhancement and the patient's lactational status. The previously described indeterminate 3 mm enhancing focus in the central left breast was not appreciated on the 2018 MRI. There was no MR correlate for the 2 cm mass in the lateral right breast identified on recent mammogram and ultrasound. Follow-up MRI in one year or 6-8 weeks after discontinuation of , which ever happens first, was recommended. COMPARISON: Comparison was made to previous bilateral breast MRI dated 10/23/2016 and 12/25/2017, bilateral mammogram dated 05/05/2019, right breast ultrasound dated 05/05/2019 TECHNIQUE: Multiplanar multisequence MR imaging of both breasts before and following the administration of 10 cc of Gadavist. Dynamic phase imaging was performed in the axial plane. Exam was processed by and interpreted on a [employer] equipment monitor phototypesetting including 3-D volume rendering, subtraction image processing and contrast kinetic analysis. FINDINGS: Background tissue pattern: Extreme fibroglandular tissue. Degree of background parenchymal enhancement: Marked, symmetric background enhancement limits evaluation. RIGHT BREAST: Within the limitations of the exam, there is no suspicious mass or area of abnormal enhancement in the right breast. Specifically, there is no correlate for the mass previously identified on mammography and ultrasound of the right breast. The single prominent low right axillary lymph node is likely reactive. There is no abnormality of the right axilla, chest wall, or nipple areolar complex. LEFT BREAST: No suspicious mass or area of abnormal enhancement in the left breast. Specifically, the 0.3 cm focus identified in the central left breast on 2017 MRI is not appreciated on today's exam. There is no abnormality of the left axilla, chest wall, or nipple areolar complex. EXTRAMAMMARY FINDINGS: None. Linda Dueñas MD MR ORDERABLES * CREATININE BLOOD - POCT (IP) [facility] (05/05/2019 1:29 PM BELLOWS CHARGER ASSEMBLER) Only the most recent of2 resultswithin the time period is included. Creatinine POCT 0.88 0.3 - 1.3 mg/dL [facility] TEST[facility] eGFR POCT 60 60 ml/min [facility] Blood BLOOD SPECIMEN / Unknown 05/05/2019 1:29 PM BELLOWS CHARGER ASSEMBLER Linda Dueñas MD LAB - POINT OF CARE ORDERABLES Performing Organization Address City/State/[facility] Co de Phone Number [facility] [address] [place] [address] * US BREAST RIGHT LTD (05/05/2019 10:41 AM BELLOWS CHARGER ASSEMBLER) Anatomical Region Laterality Modality Breast Right Mammography 05/05/2019 9:59 AM BELLOWS CHARGER ASSEMBLER Impressions 05/05/2019 2:35 PM BELLOWS CHARGER ASSEMBLER IMPRESSION: No mammographic evidence of malignancy in either breast. The previously described right breast mass is no longer identified on mammography or ultrasound. Prominent right axillary lymph node. ASSESSMENT: BI-RADS Category 2: Benign finding(s). RECOMMENDATION: Breast MRI is recommended as soon as possible for high risk screening as well as follow-up of ??bilateral findings on prior exams. Findings discussed with the patient by Dr. Nelson. This report was electronically signed by GALE NELSON M.D. ??on 05/05/2019 2:35 PM . Narrative 05/05/2019 2:35 PM BELLOWS CHARGER ASSEMBLER BILATERAL DIAGNOSTIC MAMMOGRAM LIMITED RIGHT BREAST ULTRASOUND TECHNIQUE: Images were performed using 3D tomosynthesis images with reconstructed/synthetic 2D images. ??CAD analysis was performed. DATE: 05/05/2019. HISTORY: 33-year-old with a BRCA2 mutation referred for annual mammography as well as follow-up of a probably benign right breast mass. It was first identified on 11/25/2017 mammogram and targeted ultrasound performed at [facility]. She did not return for the recommended follow-up. She is breast-feeding her 2-year-old twins. Additionally, she underwent breast MRI at [facility] on 10/23/2016. A 3 mm enhancing focus in the central left breast was identified and considered indeterminate. MR guided biopsy was recommended. However, biopsy was not performed because the patient became . On the 11/25/2017 breast imaging report from [facility], bilateral breast MRI was recommended for high-risk screening as well as to reassess the indeterminate focus in the left breast and to assist in assessing the right breast mass identified on mammography and ultrasound. Scratch that On 12/25/2017, she underwent breast MRI at [facility]. It was considered limited due to marked background parenchymal enhancement and the patient's lactational status. The previously described indeterminate 3 mm enhancing focus in the central left breast was not appreciated on the 2018 MRI. There is no MR correlate for the 2 cm mass in the lateral right breast identified on recent mammogram and ultrasound. Follow-up MRI in one year or 6-8 weeks after discontinuation of , which ever happens first, was recommended. She was scheduled to undergo breast MRI today. However, per the MR technologist, she does not want to get intravenous contrast while breast feeding. COMPARISON: Bilateral mammography 11/25/2017, 04/15/2016. BREAST COMPOSITION: The breasts are extremely dense, which lowers the sensitivity of mammography. FINDINGS: No suspicious mass, architectural distortion, or calcifications in either breast. No significant change compared to the prior study. Follow-up ultrasound performed by the piling cutter and physician. At 10:00, 11 cm from the nipple, there is a prominent axillary lymph node with a cortex measuring up to 0.3 cm. This can be further evaluated with the pending breast MRI. There is no suspicious solid or cystic mass. The mass identified on 11/25/2017 ultrasound is not identified on today's exam. Linda Dueñas MD US ORDERABLES * MRI ENTEROGRAPHY (04/07/2019 3:35 PM BELLOWS CHARGER ASSEMBLER) Anatomical Region Laterality Modality Magnetic Resonan ce, Magnetic Resonance 04/07/2019 3:23 PM BELLOWS CHARGER ASSEMBLER Impressions 04/08/2019 9:18 AM BELLOWS CHARGER ASSEMBLER IMPRESSION: 1. No small or large bowel abnormality identified. Mild stranding in the perirectal fat may represent inflammatory reaction. 2. 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 Dictated by Gigi Simms MD (engineering vice president). I, Dr. JUNE NAVA M.D. have personally reviewed and interpreted this examination/study. This report was electronically signed by JUNE NAVA M.D. ??on 04/08/2019 9:18 AM . Narrative 04/08/2019 9:18 AM BELLOWS CHARGER ASSEMBLER EXAMINATION: Magnetic resonance imaging (MRI) abdomen and pelvis without and with contrast HISTORY: K51.00: Ulcerative pancolitis without complication TECHNIQUE: MRI of the abdomen and pelvis was performed prior to and following the uneventful administration of 15 mL of Multihance intravenous gadolinium contrast according to an enterography protocol. The patient drank Volumen prior to the study to distend the small bowel. COMPARISON: No prior study is available for comparison. FINDINGS: The visible lung bases are clear. Distension of the small bowel is satisfactory with intraluminal fluid to the level of the distal bowel. The small and large bowel are normal in caliber without evidence of obstruction. No enhancing bowel lesion is identified. There is no bowel wall thickening or abnormal enhancement. The terminal ileum appears normal. The large bowel appears normal in morphology, with normal-appearing haustra. Mild stranding in the perirectal fat may represent an inflammatory reaction (series 24 image 68). No bowel fistula, stricture, or abscess is seen. There is no evidence of hepatic steatosis. Signal drop on in-phase imaging of the liver is consistent with iron deposition. There is a 7 mm central cyst in hepatic segment 7. Otherwise, no focal hepatic lesion is seen. The intrahepatic and extrahepatic bile ducts are nondilated. There is focal interruption of the main portal vein with tortuous and dilated collateral veins, which may represent a congenital form of cavernous transformation. The gallbladder, spleen, pancreas, and adrenal glands are normal. Other than a 9 mm right renal cyst, the kidneys are normal. No free intraperitoneal fluid is identified. The bladder is distended with fluid and appears normal. The uterus and adnexa appear normal. An intrauterine contraceptive device is present. A 1.5 cm right adnexal cyst is within normal limits for a premenopausal female. No free pelvic fluid is identified. 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 Procedure Note June Nava MD - 04/08/2019 EXAMINATION: Magnetic resonance imaging (MRI) abdomen and pelvis without and with contrast HISTORY: K51.00: Ulcerative pancolitis without complication TECHNIQUE: MRI of the abdomen and pelvis was performed prior to and following the uneventful administration of 15 mL of Multihanceintravenous gadolinium contrast according to an enterography protocol. The patient drank Volumen prior to the study to distend the small bowel. COMPARISON: No prior study is available for comparison. FINDINGS: The visible lung bases are clear. Distension of the small bowel is satisfactory with intraluminal fluid to the level of the distal bowel. The small and large bowel are normal in caliber without evidence of obstruction. No enhancing bowel lesion is identified. There is no bowel wall thickening or abnormal enhancement.The terminal ileum appears normal. The large bowel appears normal in morphology, with normal-appearing haustra. Mild stranding in the perirectal fat may represent an inflammatory reaction (series 24 image 68). No bowel fistula, stricture, or abscess is seen. There is no evidence of hepatic steatosis. Signal drop on in-phaseimaging of the liver is consistent with iron deposition. There is a 7 mm central cyst in hepatic segment 7. Otherwise, no focal hepatic lesion is seen.The intrahepatic and extrahepatic bile ducts are nondilated. There is focal interruption of the main portal vein with tortuous and dilatedcollateral veins, which may represent a congenital form of cavernoustransformation. The gallbladder, spleen, pancreas, and adrenal glands are normal. Other than a 9 mm right renal cyst, the kidneys are normal. No free intraperitoneal fluid is identified. The bladder is distended with fluid and appears normal. The uterus and adnexa appear normal. An intrauterine contraceptive device is present. A 1.5 cm right adnexal cyst is within normal limits for a premenopausal female. No free pelvic fluid is identified. 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 IMPRESSION: 1. No small or large bowel abnormality identified. Mild stranding in the perirectal fat may represent inflammatory reaction. 2. 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 Dictated by Gigi Simms MD (engineering vice president). I, Dr. JUNE NAVA M.D. have personally reviewed and interpreted this examination/study. This report was electronically signed by JUNE NAVA M.D. on04/08/2019 9:18 AM . Mara Latif MD MR ORDERABLES * TISSUE TRANSGLUTAMINASE AB IGA (02/24/2019 3:52 PM BELLOWS CHARGER ASSEMBLER) TTG Antibody IgA <2 0 - 3 U/mL 02/26/2019 3:08 PM BELLOWS CHARGER ASSEMBLER [facility] ([facility]) Comment: ?Negative ?0 - ??3 ?Weak Positive ?? 4 - 10 ?Positive ? >10 Tissue Transglutaminase (tTG) has been identified as the endomysial antigen. ??Studies have demonstr- ated that endomysial IgA antibodies have over 99% specificity for gluten sensitive enteropathy. Blood BLOOD SPECIMEN / Unknown Lab Venipuncture / Unknown 02/24/2019 3:52 PM BELLOWS CHARGER ASSEMBLER 02/24/2019 4:22 PM BELLOWS CHARGER ASSEMBLER Narrative [facility] ([facility]) - 02/26/2019 3:08 PM BELLOWS CHARGER ASSEMBLER Performed at: ??01 - [facility] [address] [place], [place] ??[id number] Metal Template Maker: Frank Calderon PhD, Phone: ??[phone] Mara Latif MD LAB - SEROLOGY ORD ERABLES [facility] ([facility]) [address] [place] [address], [facility] * (ABNORMAL) HEMOGLOBIN ELECTROPHORESIS (02/24/2019 3:52 PM BELLOWS CHARGER ASSEMBLER) Interpretation Hemoglobin Pattern Abnormal Pattern(A) Normal Pattern 02/26/2019 3:51 PM [facility] Comment: Capillary hemoglobin (Hb) electrophoresis shows three Hb bands with electrophoretic mobilities corresponding to HbA, HbF, and HbA2. The increased relative amount of HbA2 in this specimen is consistent with the diagnosis of heterozygous beta-thalassemia (beta-thalassemia trait). ?? This is generally a relatively benign abnormality that is associated with mild anemia, microcytosis, increased numbers of target cells and a normal or decreased red cell population distribution width (RDW). ??These findings should be confirmed by ordering a complete blood count (CBC) and examining the peripheral blood smear. These results are confirmed by acid gel electrophoresis. Rosanna Harman PhD, [facility] Clinical Paint Spray Inspector creative developer *The electrophoresis pattern and the interpretation have been reviewed and verified by the teaching physician. Hemoglobin A 88.2(L) 97.0 - 98.2 % 02/26/2019 3:51 PM [facility] Hemoglobin A2 4.7(H) 1.8 - 3.0 % 02/26/2019 3:51 PM [facility] Hemoglobin F 7.1(H) <2.0 % 02/26/2019 3:51 PM [facility] Blood BLOOD SPECIMEN / Unknown Lab Venipuncture / Unknown 02/24/2019 3:52 PM BELLOWS CHARGER ASSEMBLER 02/24/2019 4:22 PM BELLOWS CHARGER ASSEMBLER Mara Latif MD LAB - CHEMISTRY OR DERABLES Performing Organization Address [facility]/State/[facility] Co de Phone Number [address] [phone] * IGA BLOOD (02/24/2019 3:52 PM BELLOWS CHARGER ASSEMBLER) Pathologist [facility] IgA 240 87 - 534 mg/dL 02/24/2019 5:00 PM [facility] Blood BLOOD SPECIMEN / Unknown Lab Venipuncture / Unknown 02/24/2019 3:52 PM BELLOWS CHARGER ASSEMBLER 02/24/2019 4:22 PM BELLOWS CHARGER ASSEMBLER Mara Latif MD LAB - CHEMISTRY OR DERABLES [facility] [address] [phone] * EGD (12/29/2018 3:06 PM CDT) Report Endoscopy POC Endoscopy Department Report _ Patient Name: Tessy Medina ?Procedure Date: 12/29/2018 3:06 PM ?Date of : 1985 Classification: Outpatient ?Gender: Female Ethnicity: Not or ? Race: White _ Providers: ?Mara Latif MD Referring MD: ? 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 Throughout the ?procedure, the patient's blood pressure, pulse, and ?oxygen saturations were monitored continuously. The ?[id number]-[id number] was introduced through the anus and ?advanced to the terminal ileum, with identification ?of the appendiceal orifice and IC valve. The ?colonoscopy was performed without difficulty. The ?patient tolerated the procedure well. The quality ?of the bowel preparation was evaluated using the ?BBPS ([place] Bowel Preparation Scale) with scores ?of: Right Colon = 2 (minor amount of residual ?staining, small fragments of stool and/or opaque ?liquid, but mucosa seen well), Transverse Colon = 3 ?(entire mucosa seen well with no residual staining, ?small fragments of stool or opaque liquid) and Left ?Colon = 3 (entire mucosa seen well with no residual ?staining, small fragments of stool or opaque ?liquid). The total BBPS score equals 8. The quality ?of the bowel preparation was good. ? Findings: ? Hemorrhoids were found on perianal exam. ? The terminal ileum appeared normal. ? The sigmoid colon appeared normal. ? The sigmoid colon, descending colon, transverse colon, ascending colon ? and cecum appeared normal. Biopsies were taken with a cold forceps for ? histology from right and left colon. Estimated blood loss was minimal. ? Two sessile polyps were found in the sigmoid colon and ascending colon. ? The polyps were 2 to 3 mm in size. These polyps were removed with a cold ? biopsy forceps. Resection and retrieval were complete. Estimated blood ? loss was minimal. ? A single (solitary) twenty mm ulcer was found in the rectum. The ulcer ? extended from 2to 3 cm from anal verge up to 8 cm from anal verge. No ? bleeding was present. No stigmata of recent bleeding were seen. Biopsies ? were taken with a cold forceps for histology. Estimated blood loss was ? minimal. ? A localized area of mildly erythematous mucosa with few erosions was ? found in the rectum next the ulcer. Biopsies were taken with a cold ? forceps for histology. Estimated blood loss was minimal. ? Non-bleeding internal hemorrhoids were found during retroflexion. The ? hemorrhoids were medium-sized. ? Estimated Blood Loss: ? Estimated blood loss was minimal. Complications: ?No immediate complications. Impression: ? - External hemorrhoids found on perianal exam. ?- The examined portion of the ileum was normal. ?- The sigmoid colon is normal. ?- The sigmoid colon, descending colon, transverse ?colon, ascending colon and cecum are normal. ?Biopsied. ?- Two 2 to 3 mm polyps in the sigmoid colon and in ?the ascending colon, removed with a cold biopsy ?forceps. Resected and retrieved. ?- A single (solitary) ulcer in the rectum. Biopsied. ?- Erythematous mucosa in the rectum. Biopsied. ?- Non-bleeding internal hemorrhoids. Recommendation: ? - Resume previous diet. ?- Patient has a contact number available for ?emergencies. The signs and symptoms of potential ?delayed complications were discussed with the ?patient. Return to normal activities tomorrow. ?Written discharge instructions were provided to the ?patient. ?- Await pathology results. ?- Return to GI office as previously scheduled. ? Attending Participation: ??I personally performed the entire procedure. ? Procedure Code(s): ? --- Professional --- ? 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 All rights reserved. The codes documented in this report are preliminary and upon hand bindery assembly worker review may be revised to meet current compliance requirements. ____ Mara Latif MD 12/29/2018 3:56:43 PM Note Initiated On: 12/29/2018 3:06 PM Number of Addenda: 0 ? [facility] ? [address] [facility], [place] [address] [facility] PROVATION 12/29/2018 3:06 PM CDT Mara Latif MD GI PROCEDURE ORDER АНДРЕЙ [facility] PROVATION * ENDOSCOPY, COLON, DIAGNOSTIC (12/29/2018 2:46 PM CDT) Report Endoscopy POC Endoscopy Department Report __ _ Patient Name: Tessy Medina ?Procedure Date: 12/29/2018 2:46 PM ?Date of : 1985 Classification: Outpatient ?Gender: Female Ethnicity: Not or ? Race: White __ _ Providers: ?Mara Latif MD Referring MD: ? Procedure: ?Upper GI endoscopy Indications: ?Abnormal CT of the GI tract, Diarrhea, Nausea, Comorbidities ? Ulcerative colitis Description of Procedure: Pre-Anesthesia Assessment: ?- Prior [...] Prior Anticoagulants: The patient has ?taken no previous anticoagulant or antiplatelet ?agents. ASA Grade Assessment: II - A patient with ?mild systemic disease. After reviewing the risks ?and benefits, the patient was deemed in ?satisfactory condition to undergo the procedure. ?After obtaining informed consent, the endoscope was ?passed under direct vision. Throughout the ?procedure, the patient's blood pressure, pulse, and ?oxygen saturations were monitored continuously. The ?[id number]-[id number] was introduced through the mouth, and ?advanced to the second part of duodenum. The upper ?GI endoscopy was accomplished without difficulty. ?The patient tolerated the procedure well. ? Findings: ? Esophagogastric landmarks were identified: the Z-line was found at 36 ? cm, the gastroesophageal junction was found at 36 cm and the site of ? hiatal narrowing was found at 36 cm from the incisors. ? The examined esophagus was normal. ? The entire examined stomach was normal. ? The cardia and gastric fundus were normal on retroflexion. ? The first portion of the duodenum and second portion of the duodenum ? were normal. Biopsies for histology were taken with a cold forceps for ? evaluation of celiac disease. Estimated blood loss was minimal. ? Estimated Blood Loss: ? Estimated blood loss was minimal. Complications: ?No immediate complications. Impression: ? - Esophagogastric landmarks identified. ?- Normal esophagus. ?- Normal stomach. ?- Normal first portion of the duodenum and second ?portion of the duodenum. Biopsied. Recommendation: ? - Discharge patient to home (with escort). ?- Resume previous diet. ?- Patient has a contact number available for ?emergencies. The signs and symptoms of potential ?delayed complications were discussed with the ?patient. Return to normal activities tomorrow. ?Written discharge instructions were provided to the ?patient. ? Attending Participation: ??I personally performed the entire procedure. ? Procedure Code(s): ? --- Professional --- ? 30031, Esophagogastroduode noscopy, flexible, transoral; with biopsy, ? single or multiple Diagnosis Code(s): ?--- Professional --- ?R19.7, Diarrhea, unspecified ?R11.0, Nausea ?R93.3, Abnormal findings on diagnostic imaging of ?other parts of digestive tract CPT copyright 2016 [employer]. All rights reserved. The codes documented in this report are preliminary and upon hand bindery assembly worker review may be revised to meet current compliance requirements. ___ Mara Latif MD 12/29/2018 3:45:54 PM Note Initiated On: 12/29/2018 2:46 PM Number of Addenda: 0 ? [facility] ? [address] [facility] [place] [address] [facility]OVATION 12/29/2018 2:46 PM CDT Mara Latif MD GI PROCEDURE ORDER АНДРЕЙ [facility]ATION * HCG URINE QUALITATIVE - POINT OF CARE (12/29/2018 2:14 PM CDT) HCG Qual Urine Negative Negative [facility] P OCT TESTING QC Verified Yes Yes [facility] POCT TESTING Urine URINE / Unknown 12/29/2018 2 :14 PM CDT Mara Latif MD LAB - POINT OF CAR E ORDERABLES Performing Organization Address [facility] Co de Phone Number [facility] POCT TESTING [address] [place] [address] * (ABNORMAL) TRANSFERRIN (12/23/2018 11:32 AM CDT) Transferrin 168(L) 174 - 382 mg/dL 12/23/2018 3:09 PM CDT [facility] Transferrin Saturation % 57(H) 16 - 50 % 12/23/2018 3:09 PM CDT [facility] Blood BLOOD SPECIMEN / Unknown Lab Venipuncture / Unknown 12/23/2018 11:32 AM CDT 12/23/2018 11:57 AM CDT Mara Latif MD LAB - CHEMISTRY OR DERABLES Performing Organization Address [facility] Co de Phone Number [address] [phone] * ERYTHROCYTE SEDIMENTATION RATE (12/23/2018 11:32 AM CDT) Erythrocyte Sedimentation Rate Westergren 4 0 - 20 MM/HR 12/23/2018 12:57 PM CDT [facility] Blood BLOOD SPECIMEN / Unknown Lab Venipuncture / Unknown 12/23/2018 11:32 AM CDT 12/23/2018 11:55 AM CDT Mara Latif MD LAB - HEMATOLOGY O RDERABLES Performing Organization Address [facility]/ZIP Co de Phone Number [address] [phone] * (ABNORMAL) RBC MORPHOLOGY (12/23/2018 11:32 AM CDT) Anisocytosis 1+(A) None 12/23/2018 1:23 PM CDT [facility] Poikilocytes 1+(A) None 12/23/2018 1:23 PM CDT [facility] Microcytes 1+(A) None 12/23/2018 1:23 PM CDT [facility] Hypochromia 1+(A) None 12/23/2018 1:23 PM CDT [facility] Schistocytes 1+(A) None 12/23/2018 1:23 PM CDT [facility] Ovalocytes 1+(A) None 12/23/2018 1:23 PM CDT [facility] Tear Drop Cells 1+(A) None 9 1:23 PM CDT [facility] Blood BLOOD SPECIMEN / Unknown Lab Venipuncture / Unknown 12/23/2018 11:32 AM CDT 12/23/2018 11:55 AM CDT Mara Latif MD LAB - HEMATOLOGY O RDERABLES [address] [phone] * IRON BLOOD (12/23/2018 11:32 AM CDT) Iron 120 40 - 150 mcg/dL 12/23/2018 12:54 PM CDT [facility] Blood BLOOD SPECIMEN / Unknown Lab Venipuncture / Unknown 12/23/2018 11:32 AM CDT 12/23/2018 11:57 AM CDT Mara Latif MD LAB - CHEMISTRY OR DERABLES [address] [phone] * (ABNORMAL) HEPATITIS A ANTIBODY (12/23/2018 11:32 AM CDT) Hepatitis A Virus Antibody Total Positive(A ) Negative 12/24/2018 5:07 AM CDT [facility] ([facility]) Blood BLOOD SPECIMEN / Unknown Lab Venipuncture / Unknown 12/23/2018 11:32 AM CDT 12/23/2018 11:57 AM CDT Narrative [facility] ([facility]) - 12/24/2018 5:07 AM CDT Performed at: ??01 - [facility] [address] [facility], [place], [place] ??[id number] Metal Template Maker: Frank Calderon PhD, Phone: ??[phone] Mara Latif MD LAB - CHEMISTRY OR DERABLES [facility] ([facility]) [address] [place] [address], [facility] Care Teams Registered Nurse Cardiac Telemetry Relationship Specialty Start Date End Date Demar Campbell MD [address] [facility] [address] [place] [address] PCP - General 08/08/17
--- OUTSIDE RECORDS SUMMARY | 2024-03-19 00:50 | XMS_ITS | Encounter Summary ---
Author Organization [facility] Address [address] [place] [address] Care Team Providers Care Pediatric Dental Hygienist Name Role Phone Demar Campbell MD Primary Care Provider [phone] Encounter Details Date Type Department Care Team (Late st Contact Info) Description 03/03/2024 Orders Only [facility] - [address] [facility] [place] [phone] Milka Soni MD [address] [place] [phone] Social History Tobacco Use Types Packs/Day Years [...] or have serious hearing difficult y? No 03/03/2024 Is person blind or have serious difficulty seein g? No 03/03/2024 Does person have serious dif ficulty walking/climbing stairs? No 03/03/2024 Does person have difficulty dressing/bathing? No 03/03/2024 Does person have difficulty doing errands alone? No 03/03/2024 Cognitive Status Response Date of Assessm ent Does person have difficulty concentrating/remembering/making decisions? No 03/03/2024 documented as of this encounter Plan of Treatment Upcoming Encounters Date Type Department Care Team (Late st Contact Info) Description 04/09/2024 8:00 AM INTEGRATION ARCHITECT Office Visit [facility] - GI [address] [place] [phone] Gigi Bueno MD [address] [place] [address] [place] [address] 07/01/2024 1:30 PM CDT [facility] GI [address] [place] [phone] Milka Soni MD [address] [place] [phone] 08/02/2024 9:30 AM CDT Appointment [address] [phone] Linda Dueñas MD [address] [facility] [place] [address] 08/02/2024 10:30 AM CDT Office Visit [facility] - General Surgery [address] [place] [phone] Linda Dueñas MD [address] [facility] [place] [address] 02/07/2025 10:30 AM INTEGRATION ARCHITECT Appointment [address] [address] Linda Dueñas MD [address] [facility] [place] [address] 02/07/2025 11:00 AM INTEGRATION ARCHITECT Office Visit [facility] - General Surgery [address] [place] [phone] Linda Dueñas MD [address] [facility] [place] [address] documented as of this encounter Goals Goal Patient Goal Type Associated Problems Recent Progress Patient-Stated? Author Medication Management General On track( 024 2:10 PM INTEGRATION ARCHITECT) Gordy Rodriguez, RN Note: Expected end date: ongoing Interventions: Take all medications as prescribed Let your doctor know right away about any changes in your medications Make sure to request a refill of your medication at least one week prior to your last dose documented as of this encounter Visit Diagnoses Not on filedocumented in this encounter Care Teams Pediatric Dental Hygienist Relationship Specialty Start Date End Date Demar Campbell MD [address] [phone] PCP - General 08/08/17 documented as of this encounter
--- OUTSIDE RECORDS SUMMARY | 2024-03-19 00:50 | XMS_ITS | Encounter Summary ---
Author Organization [facility] Address [address] [facility] [address] Care Team Providers Care Security Expert Name Role Phone Demar Campbell MD Primary Care Provider [phone] Reason for Visit * Auth/Cert (Routine) Specialty Diagnoses / Procedures Referred By Contac t Referred To Contact Diagnoses Ulcerative colitis with complication, unspecified location (HCC) Gastroesophageal reflux disease, unspecified whether esophagitis present Procedures [place] EGD FLEX TRANSORAL DX [place] COLONOSCOPY, DIAGNOSTIC EGD w/ shmais COLONOSCOPY DIAGNOSTIC ESOPHAGOGASTRODUODENOSCOPY (EGD) DIAGNOSTIC COLONOSCOPY DIAGNOSTIC Referral ID Status Reason Start Date Expiration Date Visits Re quested Visits Authorized [id number] 1 1 Encounter Details Date Type Department Care Team (Late st Contact Info) Description 03/03/2024 12:45 PM METAL WIRE COATING OPERATOR - 03/03/2024 1:30 PM METAL WIRE COATING OPERATOR Surgery [facility] [address] [place] [address] [phone] Milka Snoi MD [address] [place] [address] [phone] EGD w/ shmais Surgery Details Date/Time Status Location OR Service Patient Class Case Class Case Type Trauma Case? 03/03/2024 12:45 PM Posted [facility] Endoscopy ENDO 4 Gastroenterology Surgery Day Care Elective > 5 days Panel 1 Procedure LRB Anes Op Region Wound Class Comments EGD w/ shmais N/A MAC Esophagus NA A. Duodenal Polyp Biopsy / Lifted / Forcep B. Gastric Biopsy COLONOSCOPY DIAGNOSTIC N/A MAC NA C. Terminal Ileum Biopsy D. Right Colon Biopsy E. Left Colon Biopsy F. Rectal Ulcer Biopsy Surgeon Surgeon Role Service Panel Milka Soni MD Primary Gastroenterology 1 Special Needs Message Received: Today Milka Soni MD Johnson, Sarah N., RN Jarred Santacruz, Please can you schedule EGD and Colonoscopy for this patient this coming Friday!! She has another surgery next Friday and I want to get her in!! Thanks! Received Date Received Time Mar 01, 2024 3:37 PM documented in this encounter Social History Tobacco Use Types Packs/Day Years Used Date Smoking Tobacco: Some Days Cigarettes Smokeless Tobacco: Never Alcohol Use Standard Drinks/Week Comments Not Currently 0 (1 standard drink = 0.6 oz pur e alcohol) Sex and Gender Information Value Date Recorded Sex Assigned at Not on file Gender Identity Not on file Sexual Orientation Not on file documented as of this encounter Last Filed Vital Signs Vital Sign Reading Time Taken Comments Blood Pressure 97/64 03/03/2024 12:30 PM METAL WIRE COATING OPERATOR Pulse 50 03/03/2024 12:30 PM METAL WIRE COATING OPERATOR Temperature 36.7 ??C (98.1 ??F) 03/03/2024 12:[address] Respiratory Rate 20 03/03/2024 12:30 PM METAL WIRE COATING OPERATOR Oxygen Saturation 99% 03/03/2024 12:30 PM METAL WIRE COATING OPERATOR Inhaled Oxygen Concentration - - Weight 76.7 kg (169 lb) 03/03/2024 12:05 PM METAL WIRE COATING OPERATOR Height 165.1 cm (5' 5 ) 03/03/2024 12:05 PM METAL WIRE COATING OPERATOR Body Mass Index 28.12 03/03/2024 12:05 PM METAL WIRE COATING OPERATOR documented in this encounter Functional Status Functional Status Response [...] No 03/03/2024 documented as of this encounter Discharge Instructions * Discharge Instructions* Chante Du, HAM - 03/03/2024 2:36 PM METAL WIRE COATING OPERATOR Images from the original note were not included. Upper Endoscopy WHAT YOU NEED TO KNOW: An upper endoscopy is also called an upper gastrointestinal (GI) endoscopy, or an esophagogastroduodenoscopy (EGD). You may feel bloated, gassy, or have some abdominal discomfort after your procedure. Your throat may be sore for 24 to 36 hours. You may burp or pass gas from air that is still insideyour body. DISCHARGE INSTRUCTIONS: Call 911 if: You have sudden chest pain or trouble breathing. Seek care immediately if: You feel dizzy or faint. You have trouble swallowing. You have severe throat pain. Your bowel movements are very dark or black. Your abdomen is hard and firm and you have severe pain. You vomit blood. Contact your healthcare provider if: You feel full or bloated and cannot burp or pass gas. You have not had a bowel movement for 3 days after your procedure. You have neck pain. You have a fever or chills. You have nausea or are vomiting. You have a rash or hives. You have questions or concerns about your endoscopy. Relieve a sore throat: Suck on throat lozenges or crushed ice. Gargle with a small amount of warm salt water. Mix 1 teaspoon of salt and 1 cup of warm water to make salt water. Relieve gas and discomfort from bloating: Lie on your right side with a heating pad on your abdomen. Take short walks to help pass gas. Eat small meals until bloating is relieved. Rest after your procedure: Do not drive or make important decisions until the day after your procedure. Return to your normal activity as directed. You can usually return to work the day after your procedure. Follow up with your healthcare provider as directed: Write down your questions so you remember to ask them during your visits. ?? Copyright [employer] 2020 Information is for End User's use only and may not be sold, redistributed or otherwise used for commercial purposes. All illustrations and images included in CareNotes?? are the copyrighted property of [employer] or [employer] The above information is an educational interpreter only. It is not intended as medical advice for individual conditions or treatments. Talk to your doctor, nurse or pharmacist before following any medical regimen to see if it is safe and effective for you. L WIRE COATING OPERATOR documented in this encounter Medications at Time of Discharge Medication Sig Dispensed Refills Start Date End Date albuterol HFA (Proventil; Ventolin; Proair) 108 (90 Base) MCG/ACT inhaler Inhale 1 (one) puff by mouth every 4 hours as needed for Shortness of Breath or Wheezing 12/03/2023 clindamycin (CLEOCIN) 1 % lotionIndications:Hi dradenitis suppurativa,Acne vulgaris Apply to affected areas of HS/body acne twice daily when present. 60 mL 11 08/22/2021 doxycycline hyclate (VIBRAMYCIN) 100 MG tabletIndications:Ac ne Vulgaris Take 1 pill twice daily with food. Reasons: Common Acne 60 tablet 3 10/02/2021 ergocalciferol (Drisdol) 1.25 MG (89045 UT) capsuleIndications:V itamin D Deficiency Take 1 (one) capsule by mouth every 7 days for 8 doses Reasons: Vitamin D Deficiency 8 capsule 03/03/2024 04/22/2024 folic acid (Folvite) 1 MG tabletIndications:Fo late Deficiency Anemia Take 1 (one) tablet by mouth once daily for 90 days Reasons: Anemia From Inadequate Folic Acid 90 tablet 03/03/2024 06/01/2024 folic acid (Folvite) 1 MG tablet Take 1 (one) tablet by mouth once daily 01/30/2024 levonorgestrel (Mirena, 52 MG,) 20 MCG/DAY IUD omeprazole (PriLOSEC) 40 MG capsuleIndications:E rosive Esophagitis Take 1 (one) capsule by mouth daily before breakfast for 90 days Reasons: Esophagus Inflammation with Erosion 90 capsule 03/03/2024 06/01/2024 polyethylene glycol 3350 (Miralax) 17 GM/SCOOP powder Take 17 (seventeen) g by mouth once daily 238 g 03/03/2024 psyllium (Metamucil) CAPS capsule Take 1 (one) capsule by mouth 2 times daily for 90 days 180 capsule 03/03/2024 06/01/2024 spironolactone (Aldactone) 100 MG tablet Take 1 (one) tablet by mouth once daily 12/08/2021 documented as of this encounter H&P Notes * Milka Soni MD - 03/03/2024 1:18 PM CST PRE-PROCEDURE HISTORY & PHYSICAL NOTE 03/03/2024 1:18 PM Patient: Tessy Medina, date of 1985 Procedure(s) planned: EGD and Colonoscopy Indication(s): Ulcerative colitis and reflux History: Patient is a 38 year old female presenting with the chief complaint of UC for disease evaluation and reflux symptoms. Patient Active Problem List Diagnosis Date Noted Hepatic fibrosis 03/01/2024 Priority: Not Prioritized BRCA gene positive 11/25/2017 Priority: Not Prioritized Ulcerative colitis without complications (HCC) 07/22/2017 Priority: Not Prioritized Anemia 07/20/2014 Priority: Not Prioritized Past Medical History: Diagnosis Date BRCA2 positive Ulcerative colitis (HCC) Family History Problem Relation Name Age of Onset Cancer - Ovarian Mother Cancer - Prostate Maternal Uncle ocbar Cancer - Liver Maternal Uncle don Past Surgical History: Procedure Laterality Date Section 2017 COLONOSCOPY N/A 12/29/2018 N/A; COLONOSCOPY DIAGNOSTIC ENDOSCOPY, UPPER N/A 12/29/2018 N/A; ESOPHAGOGASTRODUODENOSCOPY (EGD) DIAGNOSTIC Social History Socioeconomic History Marital status: Spouse name: Not on file Number of children: Not on file Years of education: Not on file Highest education level: Not on file Occupational History Not on file Tobacco Use Smoking status: Some Days Types: Cigarettes Smokeless tobacco: Never Vaping Use Vaping status: Never Used Substance and Sexual Activity Alcohol use: Not Currently Drug use: Never Sexual activity: Not on file Other Topics Concern Not on file Social History Narrative Not on file Social Determinants of Health Financial Resource Strain: Not on file Food Insecurity: Not on file Transportation Needs: Not on file Stress: Not on file Housing Stability: Not on file No Known Allergies No current facility-administered medications on file prior to encounter. Current Outpatient Medications on File Prior to Encounter Medication Sig Dispense Refill albuterol HFA (Proventil; Ventolin; Proair) 108 (90 Base) MCG/ACT inhaler Inhale 1 (one) puff by mouth every 4 hours as needed for Shortness of Breath or Wheezing clindamycin (CLEOCIN) 1 % lotion Apply to affected areas of HS/body acne twice daily when present. 60 mL 11 doxycycline hyclate (VIBRAMYCIN) 100 MG tablet Take 1 pill twice daily with food. Reasons: Common Acne (Patient not taking: Reported on 03/01/2024) 60 tablet 3 folic acid (Folvite) 1 MG tablet Take 1 (one) tablet by mouth once daily levonorgestrel (Mirena, 52 MG,) 20 MCG/DAY IUD omeprazole (PriLOSEC) 20 MG capsule Take 1 (one) capsule by mouth 2 times daily, before breakfast and supper spironolactone (Aldactone) 100 MG tablet Take 1 (one) tablet by mouth once daily (Patient not taking: Reported on 03/01/2024) No current facility-administered medications for this encounter. ROS No Chest pain, no plapitations No shortness of breath No abdominal pain Physical Exam: BP 94/63 (BP Location: Left arm, Patient Position: Lying) Pulse 56 Temp 98.1 ??F (36.7 ??C) (Oral) Resp 18 Ht 1.651 m (5' 5 ) Wt 76.7 kg (169 lb) SpO2 97% General appearance: alert, cooperative, no distress Heart: regular rhythm, normal S1 and S2, without murmurs, rubs or gallops Lungs: breath sounds normal and symmetric; no rales or wheezes Abdomen: soft without mass, non-tender, with normal bowel sounds Extremities: no clubbing, cyanosis or edema Lab Results Component Value Date/Time HGB 10.8 (L) 03/01/2024 04:29 PM HGB 10.3 (L) 12/23/2018 11:32 AM CREATININE 0.55 (L) 03/01/2024 04:29 PM Sedation Plan: Monitored Anesthesia Care (MAC) by the anesthesia team. Procedure Plan: Based on the above assessment, we will perform the procedures indicated above. I have discussed the plan, risks, benefits and alternatives with the patient or guardian. When assessment above was not obtained immediately before the procedure, I have reassessed this patient and there are no changes. Milka Soni MD L WIRE COATING OPERATOR documented in this encounter Plan of Treatment Upcoming Encounters Date Type Department Care Team (Late st Contact Info) Description 04/09/2024 8:00 AM METAL WIRE COATING OPERATOR Office Visit [facility] - GI [address] [facility], [place] [phone] Gigi Bueno MD [address] [place] [address] [place] [address] 07/01/2024 1:30 PM CDT Office Visit [facility] - GI [address] [place] [address], [place] [phone] Milka Soni MD [address] [place] [phone] 08/02/2024 9:30 AM CDT Appointment [address] [phone] Linda Dueñas MD [address] [facility] [place] [address] 08/02/2024 10:30 AM CDT Office Visit [facility] - General Surgery [address] [place] [place] [phone] Linda Dueñas MD [address] [facility] [place] [address] 02/07/2025 10:30 AM METAL WIRE COATING OPERATOR Appointment [address] [phone] Linda Dueñas MD [address] [facility] [place] [address] 02/07/2025 11:00 AM METAL WIRE COATING OPERATOR [facility] - General Surgery [address] [place] [place] [phone] Linda Dueñas MD [address] [facility] [place] [address] documented as of this encounter Goals Goal Patient Goal Type Associated Problems Recent Progress Patient-Stated? Author Medication Management General On track( 024 2:10 PM METAL WIRE COATING OPERATOR) Gordy Rodriguez, HAM Note: Expected end date: [...] ENDOSCOPY, COLON, DIAGNOSTIC Routine 03/03/2024 1:56 PM METAL WIRE COATING OPERATOR PATHOLOGY TISSUE Routine 03/03/2024 1:45 PM METAL WIRE COATING OPERATOR Ulcerative colitis with complication, unspecified location (HCC) Gastroesophageal reflux disease, unspecified whether esophagitis present EGD Routine 03/03/2024 1:30 PM METAL WIRE COATING OPERATOR [place] COLONOSCOPY, DIAGNOSTIC 03/03/2024 1:29 PM METAL WIRE COATING OPERATOR Ulcerative colitis with complication, unspecified location (HCC) [...] Received Time Mar 01, 2024 3:37 PM [place] ED EGD FLEX TRANSORAL DX 03/03/2024 1:29 PM METAL WIRE COATING OPERATOR Ulcerative colitis with complication, unspecified location (HCC) [...] POCT (IP) INTERFACED Routine 03/03/2024 12:09 PM METAL WIRE COATING OPERATOR HCG URINE QUAL POCT NOTIFICATION STAT 03/03/2024 11:53 AM METAL WIRE COATING OPERATOR Pre-op exam documented in this encounter Results * ENDOSCOPY, COLON, DIAGNOSTIC (03/03/2024 1:56 PM METAL WIRE COATING OPERATOR) Report Endoscopy POC Endoscopy Department Report _ [...] Procedure Code(s): ? --- Professional --- ? 28288, Colonoscopy, flexible; with biopsy, single or multiple Diagnosis Code(s): ?--- Professional --- ?K51.00, Ulcerative (chronic) pancolitis without ?complications ?K63.3, Ulcer of intestine CPT copyright 2021 [employer]. All rights reserved. The codes documented in this report are preliminary and upon medical insurance coder review may be revised to meet current compliance requirements. Milka Soni MD 03/03/2024 2:39:48 PM Note Initiated On: 03/03/2024 1:56 PM Number of Addenda: 0 ? [facility] ? [address] [place] [address] [facility] 03/03/2024 1:56 PM METAL WIRE COATING OPERATOR Milka Soni MD GI PROCEDURE ORDERAB LES [facility] * PATHOLOGY TISSUE (03/03/2024 1:45 PM METAL WIRE COATING OPERATOR) Case Report Surgical Pathology Report ? Case: [id number] ? Authorizing Provider: ??Milka Soni MD ?Collected: ? 03/03/2024 01:49 PM ? Ordering Location: ? [facility] ?Received: ?03/03/2024 03:06 PM ? Pathologist: [...] Rectal Ulcer Biopsy ? 03/04/2024 10:45 AM [facility] Final Diagnosis Small intestine, duodenal [...] fibrosis, and reactive changes 03/04/2024 10:45 AM [facility] Microscopic Description and Comment The [...] bowel disease, or dysplasia. 03/04/2024 10:45 AM [facility] Clinical History The patient is [...] rectal ulcer syndrome, biopsied. 03/04/2024 10:45 AM [facility] Gross Description The requisition and [...] as cassette F1. NATTY 03/04/2024 10:45 AM [facility] Pathologist Location at [facility] 03/04/2024 10:45 AM [facility] Disclaimer The performance characteristics of all immunohistochemical and indirect immunofluorescence stains (if any) cited in this report were determined by the Histopathology Laboratory of [facility]. Some of these tests were developed by [...] the attending (teaching) pathologist. 03/04/2024 10:45 AM [facility] Embedded Images 03/04/2024 10:45 AM [facility] Biopsy, NOS PART OF DUODENUM / Unknown 03/03/2024 1:45 PM METAL WIRE COATING OPERATOR 03/03/2024 3:06 PM METAL WIRE COATING OPERATOR Comment:Pre-op diagnosis: Ulcerative colitis with complication, unspecified location (HCC) [K51.919] Gastroesophageal reflux disease, unspecified whether esophagitis present [K21.9] Biopsy, NOS GASTRIC CONTENTS SPECIMEN / Unknown 03/03/2024 1:49 PM METAL WIRE COATING OPERATOR 03/03/2024 3:06 PM METAL WIRE COATING OPERATOR Comment:Pre-op diagnosis: Ulcerative colitis with complication, unspecified location (HCC) [K51.919] Gastroesophageal reflux disease, unspecified whether esophagitis present [K21.9] Biopsy, NOS COLON PART / Unknown 03/03/2024 2:09 PM METAL WIRE COATING OPERATOR 03/03/2024 3:06 PM METAL WIRE COATING OPERATOR Comment:Pre-op diagnosis: Ulcerative colitis with complication, unspecified location (HCC) [K51.919] Gastroesophageal reflux disease, unspecified whether esophagitis present [K21.9] Biopsy, NOS COLON PART / Unknown 03/03/2024 2:12 PM METAL WIRE COATING OPERATOR 03/03/2024 3:06 PM METAL WIRE COATING OPERATOR Comment:Pre-op diagnosis: Ulcerative colitis with complication, unspecified location (HCC) [K51.919] Gastroesophageal reflux disease, unspecified whether esophagitis present [K21.9] Biopsy, NOS COLON PART / Unknown 03/03/2024 2:14 PM METAL WIRE COATING OPERATOR 03/03/2024 3:06 PM METAL WIRE COATING OPERATOR Comment:Pre-op diagnosis: Ulcerative colitis with complication, unspecified location (HCC) [K51.919] Gastroesophageal reflux disease, unspecified whether esophagitis present [K21.9] Biopsy, NOS ENTIRE RECTUM / Unknown 03/03/2024 2:17 PM METAL WIRE COATING OPERATOR 03/03/2024 3:06 PM METAL WIRE COATING OPERATOR Comment:Pre-op diagnosis: Ulcerative colitis with complication, unspecified location ([facility]) [K51.919] Gastroesophageal reflux disease, unspecified whether esophagitis present [K21.9] Milka Soni MD LAB - PATHOLOGY/CYTO LOGY ORDERABLES [facility] [address] [place] [address], [facility] [phone] * EGD (03/03/2024 1:30 PM METAL WIRE COATING OPERATOR) Report Endoscopy POC Endoscopy Department Report _ [...] Procedure Code(s): ? --- Professional --- ? 69424, Esophagogastroduo denoscopy, flexible, transoral; with biopsy, ? single or multiple Diagnosis Code(s): ?--- Professional --- ?K44.9, Diaphragmatic hernia without obstruction or ?gangrene ?K21.00, Gastro-esophageal reflux disease with ?esophagitis, without bleeding ?K31.7, Polyp of stomach and duodenum ?R12, Heartburn CPT copyright 2021 [employer]. All rights reserved. The codes documented in this report are preliminary and upon medical insurance coder review may be revised to meet current compliance requirements. Milka Soni MD 03/03/2024 2:30:52 PM Note Initiated On: 03/03/2024 1:30 PM Number of Addenda: 0 ? [facility] ? [address] [place], [place] [id number] [place] [address] 03/03/2024 1:30 PM METAL WIRE COATING OPERATOR Milka Soni MD GI PROCEDURE ORDERAB LES [facility] * HCG URINE QUALITATIVE - POCT (IP) INTERFACED (03/03/2024 12:09 PM METAL WIRE COATING OPERATOR) HCG Qual Urine Negative Negative 03/03/2024 12:16 PM METAL WIRE COATING OPERATOR [facility] Urine URINE / Unknown 03/03/2024 1 2:09 PM METAL WIRE COATING OPERATOR 03/03/2024 12:16 PM METAL WIRE COATING OPERATOR Milka Soni MD LAB - POINT OF CARE ORDERABLES Performing Organization Address City/[facility]/ZIP Co de Phone Number [facility] [address] [place] [address], [place] [phone] * HCG URINE QUAL POCT NOTIFICATION (03/03/2024 11:53 AM METAL WIRE COATING OPERATOR) Comment Notification Label Only - See Separate Report 03/03/2024 1:02 PM METAL WIRE COATING OPERATOR [facility] Urine URINE / Unknown 03/03/2024 1 1:53 AM METAL WIRE COATING OPERATOR 03/03/2024 11:53 AM METAL WIRE COATING OPERATOR Milka Soni MD LAB - URINALYSIS ORD ERABLES Performing Organization Address City/[facility]/[place]UST Co de Phone Number [facility] [address] [place] [phone], [facility] [phone] documented in this encounter Visit Diagnoses Diagnosis Pre-op exam- Primary Preoperative examination, unspecified Ulcerative colitis with complication, unspecified location (HCC) Gastroesophageal reflux disease, unspecified whether esophagitis present Ulcerative colitis with complication, unspecified location (HCC) Gastroesophageal reflux disease, unspecified whether esophagitis present documented in this encounter Administered Medications Inactive Administered Medications - up to 3 most recent administrations Medication Order MAR Action Action Date Dose Rate Site 0.9% NaCl infusion at 20 mL/hr, Intravenous, CONTINUOUS, Starting on Fri03/03/24 at 1330, Until Fri03/03/24 at 1656, Pre-procedure (GI) Restarted 03/03/2024 1:35 PM METAL WIRE COATING OPERATOR $ New Bag/Syringe 03/03/2024 1:32 PM METAL WIRE COATING OPERATOR 20 mL/ hr 0.9% NaCl injection 3 mL 3 mL, Intracatheter, PRE-PROCEDURE MULTIPLE, Starting on Fri03/03/24 at 1323, Until Fri03/03/24 at 1656, For Saline Lock flushes if one is inserted for Bronchoscopy/Endoscopy procedure., Pre-procedure (GI) documented in this encounter Active and Recently Administered Medications Times are shown in METAL WIRE COATING OPERATOR. Scheduled Medication Order 03/01/2024 03/02/2024 03/03/2024 0.9% NaCl injection 3 mL 3 mL, Intracatheter, PRE-PROCEDURE MULTIPLE, Starting on Fri03/03/24 at 1323, Until Fri03/03/24 at 1656, For Saline Lock flushes if one is inserted for Bronchoscopy/Endoscopy procedure., Pre-procedure (GI) Continuous Medication Order 03/01/2024 03/02/2024 03/03/2024 0.9% NaCl infusion at 20 mL/hr, Intravenous, CONTINUOUS, Starting on Fri03/03/24 at 1330, Until Fri03/03/24 at 1656, Pre-procedure (GI) 1332 ($ New Bag/Syri nge - Provider: Kelli Shah RN)1334 (Paused - Provider: Nii Del Rosario - Comment: Switch to gravity)1335 (Restarted - Provider: Nii Del Rosario)1422 (Anesthesia Volume Adjustment - Provider: Nii Del Rosario) documented in this encounter Care Teams Security Expert Relationship Specialty Start Date End Date Demar Campbell MD [address] [place] [phone] PCP - General 08/08/17 documented as of this encounter
--- OUTSIDE RECORDS SUMMARY | 2024-03-19 00:50 | XMS_ITS | Encounter Summary ---
Author Organization [facility] Address [address] [place] [address] Care Team Providers Care Front Desk Receptionist Name Role Phone Demar Campbell MD Primary Care Provider [phone] Encounter Details Date Type Department Care Team (Latest Contact Info) Description 03/03/2024 Travel Social History Tobacco Use Types Packs/Day [...] st Contact Info) Description 04/09/2024 8:00 AM CRATE ICER Office [place] [facility] [place] [address] [place] [address], [place] [phone] Gigi Bueno MD [address] [place] [address] OF GASTROENTEROLOGY [place] [id number] 07/01/2024 1:30 PM CDT Office Visit [facility] - GI [address] [facility], [place] [address] Milka Soni MD [address] [place] [address] 08/02/2024 9:30 AM CDT Appointment [facility] MRI [address] [place] [address] Linda Dueñas MD [address] [facility] [place] [address] 08/02/2024 10:30 AM CDT Office Visit [facility] - General Surgery [address] [place] [phone] Linda Dueñas MD [address] [facility] [place] [address] 02/07/2025 10:30 AM CRATE ICER Appointment [address] [address] Linda Dueñas MD [address] [facility] [place] [address] 02/07/2025 11:00 AM CRATE ICER Office Visit [facility] - General Surgery [address] [place] [phone] Linda Dueñas MD [address] [facility] [place] [address] documented as of this encounter Goals Goal Patient Goal Type Associated Problems Recent Progress Patient-Stated? Author Medication Management General On track( 024 2:10 PM CRATE ICER) Gordy Rodriguez, HAM Note: Expected end date: ongoing Interventions: Take all medications as prescribed Let your doctor know right away about any changes in your medications Make sure to request a refill of your medication at least one week prior to your last dose documented as of this encounter Visit Diagnoses Not on filedocumented in this encounter Care Teams Front Desk Receptionist Relationship Specialty Start Date End Date Demar Campbell MD [address] [facility] [address] [facility] [address] [place] [address] PCP - General 08/08/17 documented as of this encounter
--- OUTSIDE RECORDS SUMMARY | 2024-03-19 00:50 | XMS_ITS | Encounter Summary ---
Author Organization [facility] Address [address] [facility] [place] [address] Care Team Providers Care Plastic Surgery Technician Name Role Phone Demar Campbell MD Primary Care Provider [phone] Reason for Visit * Auth/Cert (Routine) Specialty Diagnoses / Procedures Referred By Contac t Referred To Contact Diagnoses Ulcerative colitis with complication, unspecified location (HCC) Gastroesophageal reflux disease, unspecified whether esophagitis present Procedures UT ED EGD FLEX TRANSORAL DX UT COLONOSCOPY, DIAGNOSTIC EGD w/ shmais COLONOSCOPY DIAGNOSTIC ESOPHAGOGASTRODUODENOSCOPY (EGD) DIAGNOSTIC COLONOSCOPY DIAGNOSTIC Referral ID Status Reason Start Date Expiration Date Visits Re quested Visits Authorized [id number] 1 1 Encounter Details Date Type Department Care Team (Late st Contact Info) Description 03/03/2024 1:35 PM MANAGER EPIC Anesthesia Event [facility]COPY [address] [place] [address] Terry Michael MD [address] [place] [address] Anesthesia Record Procedure Summary Procedure Name Responsible Anesthesiologist Anesthesia Start Time Anesthesia Stop Time EGD w/ shmais (Esophagus) Terry Michael MD 03/03/24 1335 03/03/24 1425 Events Date Time Event Comment 03/03/2024 1229 1335 An Start 1335 Pt In Room 1335 An Start Data 1336 PT Reassessment 1336 Timeout Anesthesia part icipated in timeout at the time documented in the record by nursing. 1339 Induction 1339 Anes Ready 1341 Proc Start egd 1355 Proc Stop 1358 Proc Start colon 1422 Proc Stop 1422 An Emergence 1424 an stop data 1425 Pt out of Room 1425 An Stop Meds Name Total lidocaine PF 2% 50 mg propofol 200mg/20mL injection 190 mg propofol 500 mg/50 mL injection 427.6 mg 0.9% NaCl infusion 600 mL * Agents Name Insp. N2O Exp. N2O O2 Flow - Auxiliary O2 * Blood No blood administrations on file. Lines, Drains, and Airways Type Details Placement Removal Peripheral IV Date: 03/03/24; Time : 1312; Orientation: Anterior, Right; Location: Hand; Gauge: 22 G 03/03/24 1313 by Arielle Quintana RN 03/03/24 1535 by Chante Du RN documented in this encounter Social History Tobacco [...] No 03/03/2024 documented as of this encounter Progress Notes * Terry Michael MD - 03/03/2024 4:14 PM CST ANESTHESIA POSTOP EVALUATION NOTE Procedure: EGD w/ shmais (Esophagus) COLONOSCOPY DIAGNOSTIC Tessy Sugar Medina is a 38 year old female Patient Vitals for the past 6 hrs: BP Temp Pulse Resp SpO2 Pain Rating Score #1 Pain Scale/Observation Pulse - (SPO2/Cuff) 03/03/24 1214 94/63 98.1 ??F (36.7 ??C) 56 18 97 % -- No/denies pain -- 03/03/24 1230 97/64 -- 50 20 99 % -- -- 52 bpm 03/03/24 1430 99/66 97.6 ??F (36.4 ??C) 66 14 100 % 0 Sleeping/Resting with Eyes Closed 67 bpm 03/03/24 1445 96/61 -- 52 10 100 % 0 No/denies pain 53 bpm 03/03/24 1500 90/63 -- 46 9 100 % 0 No/denies pain 48 bpm 03/03/24 1515 88/63 -- 53 11 100 % -- -- 54 bpm 03/03/24 1535 -- -- -- -- -- 0 No/denies pain -- Anesthesia Type: general Pre-op Diagnosis Codes: * Ulcerative colitis with complication, unspecified location (HCC) [K51.919] * Gastroesophageal reflux disease, unspecified whether esophagitis present [K21.9] Mental Status: awake, alert and oriented Respiratory Function: natural Cardiac Function: stable Postop Pain: acceptable to the patient Postop Hydration: adequate Postop Nausea: none Assessment: no apparent anesthetic complications and patient tolerated procedure well Patient Disposition: Release from Anesthesia Care NOTABLE EVENTS: No notable events documented. GER EPIC * Terry Michael MD - 03/03/2024 12:28 PM CST ANESTHESIA PREOPERATIVE EVALUATION NOTE Procedure: EGD w/ shmais (Esophagus) COLONOSCOPY DIAGNOSTIC Vitals: Patient Vitals for the past 6 hrs: BP Temp Pulse Resp SpO2 03/03/24 1214 94/63 98.1 ??F (36.7 ??C) 56 18 97 % LMP: No LMP recorded (lmp unknown). Patient is premenopausal. OB Status: Premenopausal ANESTHESIA PRE-EVALUATION NOTE History of Present Illness: 38 year old female here for EGD and colonoscopy Physical Exam: Orientation X3 Airway/Mallampati Score: II Mouth Opening Distance: 3 fingerwidths TM Distance: > 3 FB Teeth: normal Heart: normal - S1 S2 Lungs: clear to ausculation bilaterally Review of Systems: History of anesthetic complications: No Diagnostic Tests: Lab(s) reviewed: Yes. ANESTHESIA PLAN ASA Score: 2 NPO Status: No solids since midnight and No liquids within 2 hours Anesthesia Plan: general and TIVA Planned Induction: intravenous Planned Postop Destination: endo Anesthetic plan was discussed with: patient Anesthetic Plan discussion was: Consented The patient's procedural Anesthetic Plan was discussed with the anesthesiologist graduate research assistant. BMI, Height, Weight Tobacco History Estimated body mass index is 28.12 kg/m?? as calculated from the following: Height as of this encounter: 1.651 m (5' 5 ). Weight as of this encounter: 76.7 kg (169 lb). Social History Tobacco Use Smoking Status Some Days Types: Cigarettes Smokeless Tobacco Never Alcohol History Drug History Social History Substance and Sexual Activity Alcohol Use Not Currently Social History Substance and Sexual Activity Drug Use Never Outpatient Medications: Inpatient Medications: Outpatient Medications Marked as Taking for the 03/03/24 encounter (Hospital Encounter) Medication Sig Last Dose clindamycin Apply to affected areas of HS/body acne twice daily when present. 03/02/2024 folic acid Take 1 (one) tablet by mouth once daily Past Week omeprazole Take 1 (one) capsule by mouth 2 times daily, before breakfast and supper Past Week No current facility-administered medications for this encounter. Allergies: No Known Allergies Relevant Problems Other (+) Hepatic fibrosis Problem List: Patient Active Problem List Diagnosis Date Noted Hepatic fibrosis 03/01/2024 Priority: Not Prioritized BRCA gene positive 11/25/2017 Priority: Not Prioritized Ulcerative colitis without complications (HCC) 07/22/2017 Priority: Not Prioritized Anemia 07/20/2014 Priority: Not Prioritized Medical History: Past Medical History: Diagnosis Date BRCA2 positive Ulcerative colitis (HCC) Surgical History: Past Surgical History: Procedure Laterality Date Section 2018 COLONOSCOPY N/A 12/29/2018 N/A; COLONOSCOPY DIAGNOSTIC ENDOSCOPY, UPPER N/A 12/29/2018 N/A; ESOPHAGOGASTRODUODENOSCOPY (EGD) DIAGNOSTIC METAL PLATER Status: No LMP recorded (lmp unknown). Patient is premenopausal. Premenopausal OB History No obstetric history on file. Covid Vaccine: Lab Results: Recent Labs Component Name 03/03/24 1209 HCGURINE Negative Recent Labs Component Name 03/01/24 1629 WBC 8.7 RBC 4.82 HCT 33.7* HGB 10.8* PLTCOUNT 205 MCV 69.9* MCH 22.4* MCHC 32.0 Recent Labs Component Name 03/01/24 1629 POTASSIUM 4.2 CALCIUM 9.1 CO2 26 GLUCOSE 88 BUN 12 CREATININE 0.55* No results found for requested labs within last 120 days. Recent Labs Result Component Current Result Alkaline Phosphatase 42 (03/01/2024) ALT 12 (03/01/2024) Anion Gap 4 (L) (03/01/2024) AST 13 (03/01/2024) eGFR by CKD-EPI >90 (03/01/2024) GER EPIC documented in this encounter Miscellaneous Notes * Anesthesia Transfer of Care - Diann Ventura Anes Asst - 03/03/2024 2:24 PM CST ANESTHESIA TRANSFER OF CARE NOTE Today's Date: 03/03/2024 Date of : 1985 Patient: Tessy Medina Procedure(s) with comments: EGD w/ shmais - A. Duodenal Polyp Biopsy / Lifted / Forcep B. Gastric Biopsy COLONOSCOPY DIAGNOSTIC - C. Terminal Ileum Biopsy D. Right Colon Biopsy E. Left Colon Biopsy F. Rectal Ulcer Biopsy Surgeon(s): Primary: Milka Soni MD Preop Diagnosis: Pre-op Diagnois: * Ulcerative colitis with complication, unspecified location (HCC) [K51.919] * Gastroesophageal reflux disease, unspecified whether esophagitis present [K21.9] Pre-op Meds (From admission, onward) Start Stop Status Route Frequency Ordered 03/03/24 1330 0.9% NaCl infusion -- Dispensed IV CONTINUOUS 03/03/24 1323 03/03/24 1323 0.9% NaCl injection 3 mL -- Dispensed IK PRE-PROCEDURE MULTIPLE 03/03/24 1323 03/03/24 1339 lidocaine HCl (PF) (Xylocaine MPF) 2 % injection -- Sent IV PRN 03/03/24 1341 03/03/24 1339 propofol (Diprivan) infusion -- Sent IV CONTINUOUS PRN 03/03/24 1341 03/03/24 1339 propofol (Diprivan) injection -- Sent IV PRN 03/03/24 1341 Post-op Diagnosis: * Ulcerative colitis with complication, unspecified location (HCC) [K51.919] * Gastroesophageal reflux disease, unspecified whether esophagitis present [K21.9] . No Known Allergies Vitals: Patient Vitals for the past 3 hrs: BP Temp Pulse Resp SpO2 03/03/24 1214 94/63 98.1 ??F (36.7 ??C) 56 18 97 % Lines, Drains, and Airways Type Details Placement Removal Peripheral IV Date: 03/03/24; Time: 1313; Orientation: Anterior, Right; Location: Hand; Gauge: 22 03/03/24 1313 by Arielle Quintana RN Intraprocedure I/O Totals Intake 0.9% NaCl infusion 600.00 mL Total Intake 600 mL Patient Transfer Location: Endo Recovery Transport Airway: spontaneous respirations Notable Events: None Handoff Given? Yes Checklist or Protocol - The ramirez handoff elements that must be included in the transfer of care checklist include: 1. Identification of patient. 2. Identification of responsible practitioner (PACU nurse or advanced practitioner). 3. Discussion of pertinent medical history. 4. Discussion of the surgical/procedure course (procedure, reason for surgery, procedure performed). 5. Intraoperative anesthetic management and issue/concerns. 6. Expectations/Plans for the early post-procedure period. 7. Opportunity for questions and acknowledgement of understanding of report from the receiving PACUteam. NOTABLE EVENTS: No notable events documented. Nii Del Rosario GER EPIC documented in this encounter Plan of Treatment Upcoming Encounters Date Type Department Care Team (Late st Contact Info) Description 04/09/2024 8:00 AM MANAGER EPIC Office Visit [facility] - GI [address] [place] [phone] Gigi Bueno MD [address] [place] [address] [place] [address] 07/01/2024 1:30 PM CDT Office Visit [facility] - GI [address] [place] [phone] Milka Soni MD [address] [place] [phone] 08/02/2024 9:30 AM CDT Appointment [facility] MRI [address] [place] [address] Linda Dueñas MD [address] [facility] [place] [address] 08/02/2024 10:30 AM CDT Office Visit [facility] - General Surgery [address] [place] [phone] Linda Dueñas MD [address] [facility] [place] [address] 02/07/2025 10:30 AM MANAGER EPIC Appointment [address] [address] Linda Dueñas MD [address] [facility] [place] [address] 02/07/2025 11:00 AM MANAGER EPIC Office Visit [address] [phone] Linda Dueñas MD [address] [facility] [place] [address] documented as of this encounter Goals Goal Patient Goal Type Associated Problems Recent Progress Patient-Stated? Author Medication Management General On track( 024 2:10 PM MANAGER EPIC) Gordy Rodriguez, HAM Note: Expected end date: ongoing Interventions: Take all medications as prescribed Let your doctor know right away about any changes in your medications Make sure to request a refill of your medication at least one week prior to your last dose documented as of this encounter Visit Diagnoses Not on filedocumented in this encounter Administered Medications Inactive Administered Medications - up to 3 most recent administrations Medication Order MAR Action Action Date Dose Rate Site 0.9% NaCl infusion at 20 mL/hr, Intravenous, CONTINUOUS, Starting on Fri03/03/24 at 1330, Until Fri03/03/24 at 1656, Pre-procedure (GI) Restarted 03/03/2024 1:35 PM MANAGER EPIC $ New Bag/Syringe 03/03/2024 1:32 PM MANAGER EPIC 20 mL/ hr lidocaine HCl (PF) (Xylocaine MPF) 2 % injection Intravenous, PRN, Starting on Fri03/03/24 at 1339, Until Fri03/03/24 at 1425, Anesthesia Intra-op $ Given 03/03/2024 1:39 PM MANAGER EPIC 50 mg propofol (Diprivan) infusion Intravenous, CONTINUOUS PRN, Starting on Fri03/03/24 at 1339, Until Fri03/03/24 at 1425, Anesthesia Intra-op Rate Change 03/03/2024 2:07 PM MANAGER EPIC 125 mcg/kg/min 57.525 mL/hr $ New Bag/Syringe 03/03/2024 1:39 PM MANAGER EPIC 150 mcg/kg/min 69 .03 mL/hr propofol (Diprivan) injection Intravenous, PRN, Starting on Fri03/03/24 at 1339, Until Fri03/03/24 at 1425, Anesthesia Intra-op $ Given 03/03/2024 2:02 PM MANAGER EPIC 20 mg $ Given 03/03/2024 1:49 PM MANAGER EPIC 20 mg $ Given 03/03/2024 1:41 PM MANAGER EPIC 50 mg documented in this encounter Care Teams Plastic Surgery Technician Relationship Specialty Start Date End Date Demar Campbell MD [address] [address] [place] [address] PCP - General 08/08/17 documented as of this encounter
--- OUTSIDE RECORDS SUMMARY | 2024-03-19 00:50 | XMS_ITS | Encounter Summary ---
Author Organization [facility] Address [address] [place] [place] [address] Care Team Providers Care Plate Filler Name Role Phone Demar Campbell MD Primary Care Provider [phone] Reason for Visit * Auth/Cert (Routine) Specialty Diagnoses / Procedures Referred By Contac t Referred To Contact Diagnoses Ulcerative colitis with complication, unspecified location (HCC) Gastroesophageal reflux disease, unspecified whether esophagitis present Procedures GA ED EGD FLEX TRANSORAL DX GA COLONOSCOPY, DIAGNOSTIC EGD w/ loyda COLONOSCOPY DIAGNOSTIC ESOPHAGOGASTRODUODENOSCOPY (EGD) DIAGNOSTIC COLONOSCOPY DIAGNOSTIC Referral ID Status Reason Start Date Expiration Date Visits Re quested Visits Authorized [id number] 1 1 Encounter Details Date Type Department Care Team (Latest Contact Info) Description 03/03/2024 11:48 AM SEWAGE DISPOSAL ENGINEER - 03/03/2024 3:56 PM [facility] Hospital Encounter [facility] [address] [place] [phone] Milka Soni MD [address] [place] [phone] Surgery General Discharge Disposition: Home or Self Care Social [...] Comments Blood Pressure 88/63 03/03/2024 3:15 PM SEWAGE DISPOSAL ENGINEER Pulse 53 03/03/2024 3:15 PM SEWAGE DISPOSAL ENGINEER Temperature 36.4 ??C (97.6 ??F) 03/03/2024 2:30 PM CS T Respiratory Rate 11 03/03/2024 3:15 PM SEWAGE DISPOSAL ENGINEER Oxygen Saturation 100% 03/03/2024 3:15 PM SEWAGE DISPOSAL ENGINEER Inhaled Oxygen Concentration - - Weight 76.7 kg (169 lb) 03/03/2024 12:05 PM SEWAGE DISPOSAL ENGINEER Height 165.1 cm (5' 5 ) 03/03/2024 12:05 PM SEWAGE DISPOSAL ENGINEER Body Mass Index 28.12 03/03/2024 12:05 PM SEWAGE DISPOSAL ENGINEER documented in this encounter Functional Status Functional [...] encounter Discharge Instructions * Discharge Instructions* Chante Du RN - 03/03/2024 2:36 PM SEWAGE DISPOSAL ENGINEER Images from the original note were not [...] ask them during your visits. ?? Copyright [employer] 2020 Information is for End User's use only and may not be sold, redistributed or otherwise used for commercial purposes. All illustrations and images included in CareNotes?? are the copyrighted property of [employer]. or [employer] The above information is an medicaid plan compliance director only. It is not intended as medical advice for individual conditions or treatments. Talk to your doctor, nurse or pharmacist before following any medical regimen to see if it is safe and effective for you. GE DISPOSAL ENGINEER documented in this encounter Medications at Time [...] tablet 3 10/02/2021 ergocalciferol (Drisdol) 1.25 MG (45429 UT) capsuleIndications:V itamin D Deficiency Take 1 [...] there are no changes. Milka Soni MD GE DISPOSAL ENGINEER documented in this encounter Plan of Treatment Upcoming Encounters Date Type Department Care Team (Late st Contact Info) Description 04/09/2024 8:00 AM SEWAGE DISPOSAL ENGINEER Office Visit [facility] - GI [address] [place] [phone] Gigi Bueno MD [address] [place] [address] [place] [address] 07/01/2024 1:30 PM CDT Office Visit [facility] - GI [address] [place] [phone] Milka Soni MD [address] [place] [phone] 08/02/2024 9:30 AM CDT Appointment [address] [phone] Linda Dueñas MD [address] [facility] [place] [address] 08/02/2024 10:30 AM CDT Office Visit [facility] General Surgery [address] [place] [phone] Linda Dueñas MD [address] [facility] [place] [address] 02/07/2025 10:30 AM SEWAGE DISPOSAL ENGINEER Appointment [address] [phone] Linda Dueñas MD [address] [facility] [place] [address] 02/07/2025 11:00 AM SEWAGE DISPOSAL ENGINEER Office Visit [facility] Surgery [address] [place] [phone] Linda Dueñas MD [address] [facility] [place] [address] documented as of this encounter Goals Goal Patient Goal Type Associated Problems Recent Progress Patient-Stated? Author Medication Management General On track( 024 2:10 PM SEWAGE DISPOSAL ENGINEER) Gordy Rodriguez, HAM Note: Expected end date: [...] ENDOSCOPY, COLON, DIAGNOSTIC Routine 03/03/2024 1:56 PM SEWAGE DISPOSAL ENGINEER PATHOLOGY TISSUE Routine 03/03/2024 1:45 PM SEWAGE DISPOSAL ENGINEER Ulcerative colitis with complication, unspecified location (HCC) Gastroesophageal reflux disease, unspecified whether esophagitis present EGD Routine 03/03/2024 1:30 PM SEWAGE DISPOSAL ENGINEER GA COLONOSCOPY, DIAGNOSTIC 03/03/2024 1:29 PM SEWAGE DISPOSAL ENGINEER Ulcerative colitis with complication, unspecified location (HCC) [...] Received Time Mar 01, 2024 3:37 PM GA ED EGD FLEX TRANSORAL DX 03/03/2024 1:29 PM SEWAGE DISPOSAL ENGINEER Ulcerative colitis with complication, unspecified location (HCC) [...] POCT (IP) INTERFACED Routine 03/03/2024 12:09 PM SEWAGE DISPOSAL ENGINEER HCG URINE QUAL POCT NOTIFICATION STAT 03/03/2024 11:53 AM SEWAGE DISPOSAL ENGINEER Pre-op exam documented in this encounter Results * ENDOSCOPY, COLON, DIAGNOSTIC (03/03/2024 1:56 PM SEWAGE DISPOSAL ENGINEER) Report Endoscopy POC Endoscopy Department Report _ [...] Procedure Code(s): ? --- Professional --- ? 59688, Colonoscopy, flexible; with biopsy, single or multiple Diagnosis Code(s): ?--- Professional --- ?K51.00, Ulcerative (chronic) pancolitis without ?complications ?K63.3, Ulcer of intestine CPT copyright 2021 [employer]. All rights reserved. The codes documented in this report are preliminary and upon director of user experience review may be revised to meet current compliance requirements. Milka Soni MD 03/03/2024 2:39:48 PM Note Initiated On: 03/03/2024 1:56 PM Number of Addenda: 0 ? [facility] ? [address] [place] [address] [facility] 03/03/2024 1:56 PM SEWAGE DISPOSAL ENGINEER Milka Soni MD GI PROCEDURE ORDERAB LES [facility] * PATHOLOGY TISSUE (03/03/2024 1:45 PM SEWAGE DISPOSAL ENGINEER) Case Report Surgical Pathology Report ? Case: [id number] ? Authorizing Provider: ??Milka Soni MD ?Collected: ? 03/03/2024 01:49 PM ? Ordering Location: ? [facility] ?Received: ?03/03/2024 03:06 PM ? Pathologist: [...] Rectal Ulcer Biopsy ? 03/04/2024 10:45 AM SEWAGE DISPOSAL ENGINEER [facility] Final Diagnosis Small intestine, [...] fibrosis, and reactive changes 03/04/2024 10:45 AM [facility] Microscopic Description and [...] bowel disease, or dysplasia. 03/04/2024 10:45 AM [facility] Clinical History The [...] rectal ulcer syndrome, biopsied. 03/04/2024 10:45 AM [facility] Gross Description The [...] as cassette F1. AL 03/04/2024 10:45 AM [facility] Pathologist Location at [facility] 03/04/2024 10:45 AM [facility] Disclaimer The performance characteristics of all immunohistochemical and indirect immunofluorescence stains (if any) cited in this report were determined by the Histopathology Laboratory of [facility]. Some of these tests were developed by [...] the attending (teaching) pathologist. 03/04/2024 10:45 AM [facility] Embedded Images 03/04/2024 10:45 AM [facility] Biopsy, NOS PART OF DUODENUM / Unknown 03/03/2024 1:45 PM SEWAGE DISPOSAL ENGINEER 03/03/2024 3:06 PM SEWAGE DISPOSAL ENGINEER Comment:Pre-op diagnosis: Ulcerative colitis with complication, unspecified location (HCC) [K51.919] Gastroesophageal reflux disease, unspecified whether esophagitis present [K21.9] Biopsy, NOS GASTRIC CONTENTS SPECIMEN / Unknown 03/03/2024 1:49 PM SEWAGE DISPOSAL ENGINEER 03/03/2024 3:06 PM SEWAGE DISPOSAL ENGINEER Comment:Pre-op diagnosis: Ulcerative colitis with complication, unspecified location (HCC) [K51.919] Gastroesophageal reflux disease, unspecified whether esophagitis present [K21.9] Biopsy, NOS COLON PART / Unknown 03/03/2024 2:09 PM SEWAGE DISPOSAL ENGINEER 03/03/2024 3:06 PM SEWAGE DISPOSAL ENGINEER Comment:Pre-op diagnosis: Ulcerative colitis with complication, unspecified location (HCC) [K51.919] Gastroesophageal reflux disease, unspecified whether esophagitis present [K21.9] Biopsy, NOS COLON PART / Unknown 03/03/2024 2:12 PM SEWAGE DISPOSAL ENGINEER 03/03/2024 3:06 PM SEWAGE DISPOSAL ENGINEER Comment:Pre-op diagnosis: Ulcerative colitis with complication, unspecified location (HCC) [K51.919] Gastroesophageal reflux disease, unspecified whether esophagitis present [K21.9] Biopsy, NOS COLON PART / Unknown 03/03/2024 2:14 PM SEWAGE DISPOSAL ENGINEER 03/03/2024 3:06 PM SEWAGE DISPOSAL ENGINEER Comment:Pre-op diagnosis: Ulcerative colitis with complication, unspecified location (HCC) [K51.919] Gastroesophageal reflux disease, unspecified whether esophagitis present [K21.9] Biopsy, NOS ENTIRE RECTUM / Unknown 03/03/2024 2:17 PM SEWAGE DISPOSAL ENGINEER 03/03/2024 3:06 PM SEWAGE DISPOSAL ENGINEER Comment:Pre-op diagnosis: Ulcerative colitis with complication, unspecified location (HCC) [K51.919] Gastroesophageal reflux disease, unspecified whether esophagitis present [K21.9] Milka Soni MD LAB - PATHOLOGY/CYTO LOGY ORDERABLES Performing Organization Address [facility]/State/[facility] de Phone Number [facility] [address] [phone] * EGD (03/03/2024 1:30 PM SEWAGE DISPOSAL ENGINEER) Report Endoscopy POC Endoscopy Department Report _ [...] Procedure Code(s): ? --- Professional --- ? 69169, Esophagogastroduo denoscopy, flexible, transoral; with biopsy, ? single or multiple Diagnosis Code(s): ?--- Professional --- ?K44.9, Diaphragmatic hernia without obstruction or ?gangrene ?K21.00, Gastro-esophageal reflux disease with ?esophagitis, without bleeding ?K31.7, Polyp of stomach and duodenum ?R12, Heartburn CPT copyright 2021 [employer]. All rights reserved. The codes documented in this report are preliminary and upon director of user experience review may be revised to meet current compliance requirements. Milka Soni MD 03/03/2024 2:30:52 PM Note Initiated On: 03/03/2024 1:30 PM Number of Addenda: 0 ? [facility] ? [address] [place] [address] [facility] 03/03/2024 1:30 PM SEWAGE DISPOSAL ENGINEER Milka Soni MD GI PROCEDURE ORDERAB LES Performing Organization Address [facility] Phone Number [facility] * HCG URINE QUALITATIVE - POCT (IP) INTERFACED (03/03/2024 12:09 PM SEWAGE DISPOSAL ENGINEER) HCG Qual Urine Negative Negative 03/03/2024 12:16 PM SEWAGE DISPOSAL ENGINEER [facility] Urine URINE / Unknown 03/03/2024 1 2:09 PM SEWAGE DISPOSAL ENGINEER 03/03/2024 12:16 PM SEWAGE DISPOSAL ENGINEER Milka Soni MD LAB - POINT OF CARE ORDERABLES Performing Organization Address [facility] de Phone Number [address] [address], [facility] [phone] * HCG URINE QUAL POCT NOTIFICATION (03/03/2024 11:53 AM SEWAGE DISPOSAL ENGINEER) Comment Notification Label Only - See Separate Report 03/03/2024 1:02 PM SEWAGE DISPOSAL ENGINEER [facility] Urine URINE / Unknown 03/03/2024 1 1:53 AM SEWAGE DISPOSAL ENGINEER 03/03/2024 11:53 AM SEWAGE DISPOSAL ENGINEER Milka Soni MD LAB - URINALYSIS ORD ERABLES Performing Organization Address [facility] Co de Phone Number [address] [place] [address], [facility] [phone] documented in this encounter Visit Diagnoses Diagnosis [...] 1656, Pre-procedure (GI) Restarted 03/03/2024 1:35 PM SEWAGE DISPOSAL ENGINEER $ New Bag/Syringe 03/03/2024 1:32 PM SEWAGE DISPOSAL ENGINEER 20 mL/ hr 0.9% NaCl injection 3 mL 3 mL, Intracatheter, PRE-PROCEDURE MULTIPLE, Starting on Fri03/03/24 at 1323, Until Fri03/03/24 at 1656, For Saline Lock flushes if one is inserted for Bronchoscopy/Endoscopy procedure., Pre-procedure (GI) documented in this encounter Active and Recently Administered Medications Times are shown in SEWAGE DISPOSAL ENGINEER. Scheduled Medication Order 03/01/2024 03/02/2024 03/03/2024 0.9% [...] Rosario) documented in this encounter Care Teams Plate Filler Relationship Specialty Start Date End Date Demar Campbell MD [address] [facility] [address] [place] [phone] PCP - General 08/08/17 documented as of this encounter
--- OUTSIDE RECORDS SUMMARY | 2024-03-19 00:50 | XMS_ITS | Referral Summary ---
Author Organization [facility] Address [address] [place] [address] Care Team Providers Care Strategic Buyer Name Role Phone Demar Campbell MD Primary Care Provider [phone] Source Comments [facility],non-owned Affiliates and Associated Physician Practices is amultiple site organization consisting of ambulatory clinics and hospital sitesin [place], [place], [place] and [place]. This disclosure is being madepursuant to the Care Everywhere program and may not contain all information available regarding this patient. Last updated 17.[facility] Encounters Date Type Department Care Team Description 03/03/2024 Orders Only [facility] - GI [address] [place] [address] Milka Soni MD Hidradenitis suppurativa 03/03/2024 Orders Only [facility] [address] [place] [address] Milka Soni MD 03/03/2024 Travel 03/03/2024 1:35 PM NURSE RECRUITER Anesthesia Event [facility] END[facility]COPY [address] [place] [address] Terry Michael MD 03/03/2024 12:45 PM NURSE RECRUITER - 03/03/2024 1:30 PM NURSE RECRUITER Surgery [facility] [address] [place] [address] Milka Soni MD EGD w/ loyda 03/03/2024 11:48 AM NURSE RECRUITER - 03/03/2024 3:56 PM NURSE RECRUITER Hospital Encounter [facility] OP [address] [place] [address] Milka Soni MD Surgery General Discharge Disposition: Home or Self Care 03/01/2024 4:15 PM NURSE RECRUITER - 03/01/2024 11:59 PM NURSE RECRUITER Hospital Encounter [facility] OP DRAW STATION [address] [place] [address] Milka Soni MD Discharge Disposition: Home or Self Care 03/01/2024 3:30 PM NURSE RECRUITER Procedure visit [facility] - GI [address] [place] [phone] Milka Soni MD NAFLD (nonalcoholic fatty liver disease) 03/01/2024 Travel 03/01/2024 2:00 PM NURSE RECRUITER Office Visit [facility] - GI [address] [place] [phone] Milka Soni MD Ulcerative colitis with complication, unspecified location (HCC) (Primary Dx); Hepatic fibrosis; Intestinal malabsorption, unspecified type (HCC); Therapeutic drug monitoring; Gastroesophageal reflux disease, unspecified whether esophagitis present 02/09/2024 10:30 AM NURSE RECRUITER Office Visit [facility] - General Surgery [address] [place] [address] Linda Dueñas MD BRCA2 positive (Primary Dx); BRCA gene positive; BRCA2 genetic carrier 02/09/2024 9:45 AM NURSE RECRUITER - 02/09/2024 11:59 PM NURSE RECRUITER Hospital Encounter [facility] [address] [place] [address] Linda Dueñas MD Discharge Disposition: Home or Self Care 02/04/2024 Travel 12/23/2023 Telephone [facility] [address] [place] [address] Sofy Galvan Follow-up from Last 3 Months Allergies No known active allergies Medications * [...] 03/03/2024 5 Active ergocalciferol (Drisdol) 1.25 MG (81790 UT) capsuleIndicatio ns:Vitamin D Deficiency Take 1 [...] Comments Blood Pressure 88/63 03/03/2024 3:15 PM NURSE RECRUITER Pulse 53 03/03/2024 3:15 PM NURSE RECRUITER Temperature 36.4 ??C (97.6 ??F) 03/03/2024 2:30 PM CS T Respiratory Rate 11 03/03/2024 3:15 PM NURSE RECRUITER Oxygen Saturation 100% 03/03/2024 3:15 PM NURSE RECRUITER Inhaled Oxygen Concentration - - Weight 76.7 kg (169 lb) 03/03/2024 12:05 PM NURSE RECRUITER Height 165.1 cm (5' 5 ) 03/03/2024 12:05 PM NURSE RECRUITER Body Mass Index 28.12 03/03/2024 12:05 PM NURSE RECRUITER Functional Status Functional Status Response Date of [...] person have difficulty concentrating/remembering/making decisions? No 03/03/2024 Plan of Treatment Upcoming Encounters Date Type Department Care Team (Late st Contact Info) Description 04/09/2024 8:00 AM NURSE RECRUITER Office Visit [facility] [address] [place] [phone] Gigi Bueno MD [address] [place] [address] [place] [address] 07/01/2024 1:30 PM CDT Office Visit [facility] [address] [place] [phone] Milka Soni MD [address] [place] [phone] 08/02/2024 9:30 AM CDT Appointment [facility] MRI [address] [place] [address] Linda Dueñas MD [address] [facility] [place] [address] 08/02/2024 10:30 AM CDT Office Visit [facility] - General Surgery [address] [place] [phone] Linda Dueñas MD [address] [facility] [place] [address] 02/07/2025 10:30 AM NURSE RECRUITER Appointment [address] [address] Linda Dueñas MD [address] [facility] [place] [address] 02/07/2025 11:00 AM NURSE RECRUITER Office Visit [facility] Surgery [address] [place] [phone] Linda Dueñas MD [address] [facility] [place] [address] Goals Goal Patient Goal Type Associated Problems Recent Progress Patient-Stated? Author Medication Management General On track( 024 2:10 PM NURSE RECRUITER) Gordy Rodriguez, HAM Note: Expected end date: ongoing Interventions: Take all medications as prescribed Let your doctor know right away about any changes in your medications Make sure to request a refill of your medication at least one week prior to your last dose Procedures Procedure Name Priority Date/Time Associated Diagnosis Comments ENDOSCOPY, COLON, DIAGNOSTIC Routine 03/03/2024 1:56 PM NURSE RECRUITER PATHOLOGY TISSUE Routine 03/03/2024 1:45 PM NURSE RECRUITER Ulcerative colitis with complication, unspecified location (HCC) Gastroesophageal reflux disease, unspecified whether esophagitis present EGD Routine 03/03/2024 1:30 PM NURSE RECRUITER MT COLONOSCOPY, DIAGNOSTIC 03/03/2024 1:29 PM NURSE RECRUITER Ulcerative colitis with complication, unspecified location (HCC) [...] Received Time Mar 01, 2024 3:37 PM MT ED EGD FLEX TRANSORAL DX 03/03/2024 1:29 PM NURSE RECRUITER Ulcerative colitis with complication, unspecified location (HCC) [...] POCT (IP) INTERFACED Routine 03/03/2024 12:09 PM NURSE RECRUITER HCG URINE QUAL POCT NOTIFICATION STAT 03/03/2024 11:53 AM NURSE RECRUITER Pre-op exam SMOOTH MUSCLE ANTIBODY W REFLEX TITER Routine 03/01/2024 4:29 PM NURSE RECRUITER Hepatic fibrosis Ulcerative colitis without complications, unspecified location (HCC) Intestinal malabsorption, unspecified type (HCC) Therapeutic drug monitoring VITAMIN D 25-HYDROXY Routine 03/01/2024 4:29 PM NURSE RECRUITER Hepatic fibrosis Ulcerative colitis with complication, unspecified location (HCC) Intestinal malabsorption, unspecified type (HCC) Therapeutic drug monitoring VITAMIN B12 Routine 03/01/2024 4:29 PM NURSE RECRUITER Hepatic fibrosis Ulcerative colitis with complication, unspecified location (HCC) Intestinal malabsorption, unspecified type (HCC) Therapeutic drug monitoring FERRITIN Routine 03/01/2024 4:29 PM NURSE RECRUITER Hepatic fibrosis Ulcerative colitis with complication, unspecified location (HCC) Intestinal malabsorption, unspecified type (HCC) Therapeutic drug monitoring FOLATE Routine 03/01/2024 4:29 PM NURSE RECRUITER Hepatic fibrosis Ulcerative colitis with complication, unspecified location (HCC) Intestinal malabsorption, unspecified type (HCC) Therapeutic drug monitoring IRON + TRANSFERRIN PANEL Routine 03/01/2024 4:29 PM NURSE RECRUITER Hepatic fibrosis Ulcerative colitis with complication, unspecified location (HCC) Intestinal malabsorption, unspecified type (HCC) Therapeutic drug monitoring C-REACTIVE PROTEIN Routine 03/01/2024 4: 29 PM NURSE RECRUITER Hepatic fibrosis Ulcerative colitis with complication, unspecified location (HCC) Intestinal malabsorption, unspecified type (HCC) Therapeutic drug monitoring COMPREHENSIVE METABOLIC PANEL Routine 03/01/2024 4:29 PM NURSE RECRUITER Hepatic fibrosis Ulcerative colitis with complication, unspecified location (HCC) Intestinal malabsorption, unspecified type (HCC) Therapeutic drug monitoring CBC W AUTO DIFFERENTIAL Routine 03/01/2024 4:29 PM NURSE RECRUITER Hepatic fibrosis Ulcerative colitis with complication, unspecified location (HCC) Intestinal malabsorption, unspecified type (HCC) Therapeutic drug monitoring HEPATITIS C ANTIBODY Routine 03/01/2024 4:29 PM NURSE RECRUITER Hepatic fibrosis Ulcerative colitis with complication, unspecified location (HCC) Intestinal malabsorption, unspecified type (HCC) Therapeutic drug monitoring HEPATITIS B CORE ANTIBODY TOTAL Routine 03/01/2024 4:29 PM NURSE RECRUITER Hepatic fibrosis Ulcerative colitis with complication, unspecified location (HCC) Intestinal malabsorption, unspecified type (HCC) Therapeutic drug monitoring HEPATITIS B SURFACE ANTIBODY Routine 03/01/2024 4:29 PM NURSE RECRUITER Hepatic fibrosis Ulcerative colitis with complication, unspecified location (HCC) Intestinal malabsorption, unspecified type (HCC) Therapeutic drug monitoring HEPATITIS B SURFACE ANTIGEN W RFLX CONFIRMATION Routine 03/01/2024 4:29 PM NURSE RECRUITER Hepatic fibrosis Ulcerative colitis with complication, unspecified location (HCC) Intestinal malabsorption, unspecified type (HCC) Therapeutic drug monitoring NERI BLOOD SCREEN W/REFLEX TITER Routine 03/01/2024 4:29 PM NURSE RECRUITER Hepatic fibrosis Ulcerative colitis with complication, unspecified location (HCC) Intestinal malabsorption, unspecified type (HCC) Therapeutic drug monitoring QUANTIFERON-TB GOLD PLUS 4-TUBE Routine 03/01/2024 4:29 PM NURSE RECRUITER Hepatic fibrosis Ulcerative colitis with complication, unspecified location (HCC) Intestinal malabsorption, unspecified type (HCC) Therapeutic drug monitoring MT LIVER ELASTOGRAPHY Routine 03/01/2024 3:55 PM NURSE RECRUITER Hepatic fibrosis MAMMO BILAT SCREENING W CLEMENTE Routine 02/09/2024 10:58 AM NURSE RECRUITER BRCA gene positive from Last 3 Months Results * ENDOSCOPY, COLON, DIAGNOSTIC (03/03/2024 1:56 PM NURSE RECRUITER) Report Endoscopy POC Endoscopy Department Report _ Patient Name: Tessy Estrada ?Procedure Date: 03/03/2024 1:56 PM ?Date of : 1985 Classification: Outpatient ?Gender: Female Ethnicity: Not or ? Race: Patient Declined _ Providers: ?Milka Soni MD Referring MD: ? Demar Adrian (Referring MD) Procedure: ?Colonoscopy Indications: ?Disease activity [...] Procedure Code(s): ? --- Professional --- ? 09918, Colonoscopy, flexible; with biopsy, single or multiple Diagnosis Code(s): ?--- Professional --- ?K51.00, Ulcerative (chronic) pancolitis without ?complications ?K63.3, Ulcer of intestine CPT copyright 2021 [employer]. All rights reserved. The codes documented in this report are preliminary and upon fish bait picker review may be revised to meet current compliance requirements. Milka Soni MD 03/03/2024 2:39:48 PM Note Initiated On: 03/03/2024 1:56 PM Number of Addenda: 0 ? [facility] ? [address] [place], [place] [id number] [place] [address] [employer]OVATION 03/03/2024 1:56 PM NURSE RECRUITER Milka Soni MD GI PROCEDURE ORDERAB LES Performing Organization Address City/State/[facility] Co de Phone Number [facility] [employer] * PATHOLOGY TISSUE (03/03/2024 1:45 PM NURSE RECRUITER) Case Report Surgical Pathology Report ? Case: [id number] ? Authorizing Provider: ??Milka Soni MD ?Collected: ? 03/03/2024 01:49 PM ? Ordering Location: ? [facility] ?Received: ?03/03/2024 03:06 PM ? Pathologist: [...] Rectal Ulcer Biopsy ? 03/04/2024 10:45 AM NURSE RECRUITER [facility] PATHOLOGY LAB Final Diagnosis Small intestine, duodenal [...] fibrosis, and reactive changes 03/04/2024 10:45 AM [facility] PATHOLOGY LAB Microscopic Description and [...] bowel disease, or dysplasia. 03/04/2024 10:45 AM [facility] PATHOLOGY LAB Clinical History The [...] rectal ulcer syndrome, biopsied. 03/04/2024 10:45 AM [facility] PATHOLOGY LAB Gross Description The requisition and specimen(s) are identified with the patient's name, Tessy Estrada. Received in formalin, specimen A , is [...] as cassette F1. AL 03/04/2024 10:45 AM [facility] PATHOLOGY LAB Pathologist Location at [facility] 03/04/2024 10:45 AM [facility] PATHOLOGY LAB Disclaimer The performance characteristics of all immunohistochemical and indirect immunofluorescence stains (if any) cited in this report were determined by the Histopathology Laboratory of [facility]. Some of these tests were developed by [...] the attending (teaching) pathologist. 03/04/2024 10:45 AM [facility] PATHOLOGY LAB Embedded Images 03/04/2024 10:45 AM [facility] PATHOLOGY LAB Biopsy, NOS PART OF DUODENUM / Unknown 03/03/2024 1:45 PM NURSE RECRUITER 03/03/2024 3:06 PM NURSE RECRUITER Comment:Pre-op diagnosis: Ulcerative colitis with complication, unspecified location (HCC) [K51.919] Gastroesophageal reflux disease, unspecified whether esophagitis present [K21.9] Biopsy, NOS GASTRIC CONTENTS SPECIMEN / Unknown 03/03/2024 1:49 PM NURSE RECRUITER 03/03/2024 3:06 PM NURSE RECRUITER Comment:Pre-op diagnosis: Ulcerative colitis with complication, unspecified location (HCC) [K51.919] Gastroesophageal reflux disease, unspecified whether esophagitis present [K21.9] Biopsy, NOS COLON PART / Unknown 03/03/2024 2:09 PM NURSE RECRUITER 03/03/2024 3:06 PM NURSE RECRUITER Comment:Pre-op diagnosis: Ulcerative colitis with complication, unspecified location (HCC) [K51.919] Gastroesophageal reflux disease, unspecified whether esophagitis present [K21.9] Biopsy, NOS COLON PART / Unknown 03/03/2024 2:12 PM NURSE RECRUITER 03/03/2024 3:06 PM NURSE RECRUITER Comment:Pre-op diagnosis: Ulcerative colitis with complication, unspecified location (HCC) [K51.919] Gastroesophageal reflux disease, unspecified whether esophagitis present [K21.9] Biopsy, NOS COLON PART / Unknown 03/03/2024 2:14 PM NURSE RECRUITER 03/03/2024 3:06 PM NURSE RECRUITER Comment:Pre-op diagnosis: Ulcerative colitis with complication, unspecified location (HCC) [K51.919] Gastroesophageal reflux disease, unspecified whether esophagitis present [K21.9] Biopsy, NOS ENTIRE RECTUM / Unknown 03/03/2024 2:17 PM NURSE RECRUITER 03/03/2024 3:06 PM NURSE RECRUITER Comment:Pre-op diagnosis: Ulcerative colitis with complication, unspecified location (HCC) [K51.919] Gastroesophageal reflux disease, unspecified whether esophagitis present [K21.9] Milka Soni MD LAB - PATHOLOGY/CYTO LOGY ORDERABLES Performing Organization Address [facility]/State/[facility] Co de Phone Number [facility] PATHOLOGY LAB [address] [phone] * EGD (03/03/2024 1:30 PM NURSE RECRUITER) Report Endoscopy POC Endoscopy Department Report _ Patient Name: Tessy Estrada ?Procedure Date: 03/03/2024 1:30 PM ?Date of [...] Procedure Code(s): ? --- Professional --- ? 79883, Esophagogastroduo denoscopy, flexible, transoral; with biopsy, ? single or multiple Diagnosis Code(s): ?--- Professional --- ?K44.9, Diaphragmatic hernia without obstruction or ?gangrene ?K21.00, Gastro-esophageal reflux disease with ?esophagitis, without bleeding ?K31.7, Polyp of stomach and duodenum ?R12, Heartburn CPT copyright 2021 [employer]. All rights reserved. The codes documented in this report are preliminary and upon fish bait picker review may be revised to meet current compliance requirements. Milka Soni MD 03/03/2024 2:30:52 PM Note Initiated On: 03/03/2024 1:30 PM Number of Addenda: 0 ? [facility] ? [address] [place] [address] [facility] 03/03/2024 1:30 PM NURSE RECRUITER Milka Soni MD GI PROCEDURE ORDERAB LES Performing Organization Address [facility] Co de Phone Number [facility] * HCG URINE QUALITATIVE - POCT (IP) INTERFACED (03/03/2024 12:09 PM NURSE RECRUITER) HCG Qual Urine Negative Negative 03/03/2024 12:16 PM NURSE RECRUITER [facility] Urine URINE / Unknown 03/03/2024 1 2:09 PM NURSE RECRUITER 03/03/2024 12:16 PM NURSE RECRUITER Milka Soni MD LAB - POINT OF CARE ORDERABLES Performing Organization Address [facility] de Phone Number [address] [address], [facility] [phone] * HCG URINE QUAL POCT NOTIFICATION (03/03/2024 11:53 AM NURSE RECRUITER) Comment Notification Label Only - See Separate Report 03/03/2024 1:02 PM NURSE RECRUITER [facility] Urine URINE / Unknown 03/03/2024 1 1:53 AM NURSE RECRUITER 03/03/2024 11:53 AM NURSE RECRUITER Milka Soni MD LAB - URINALYSIS ORD ERABLES Performing Organization Address [facility] Co de Phone Number [address] [address], [facility] [phone] * QUANTIFERON-TB GOLD PLUS 4-TUBE (03/01/2024 4:29 PM NURSE RECRUITER) QuantiFERON Mitogen Minus NIL 10.00 IU/mL 03/04/2024 2:04 AM NURSE RECRUITER [employer] ([facility]) QuantiFERON Nil Value 0.00 IU/mL 03/04/2024 2:04 AM NURSE RECRUITER [employer] [facility] ([facility]) QuantiFERON Plus TB1 Minus NIL 0.00 <=0.34 IU/mL 03/04/2024 2:04 AM NURSE RECRUITER [employer] [facility] ([facility]) QuantiFERON Plus TB2 Minus NIL 0.00 <=0.34 IU/mL 03/04/2024 2:04 AM NURSE RECRUITER [employer] [facility] ([facility]) QuantiFERON-TB Gold Plus Negative Negative 03/04/2024 2:04 AM [facility] ([facility]) Comment: INTERPRETIVE INFORMATION:Quantiferon TB Gold Plus [...] Mycobacterium tuberculosis Infection -- [place], 2010 (http://www.cdc.gov/mmwr/preview/mmwrhtml/ai2088s5.htm), for more information concerning test performance in low-prevalence populations and use in occupational screening. Performed By: [facility] [address] [place] [address] Chemical Radiation Technician: Dm Mike MD, PhD CLIA Number: [id number] Blood BLOOD SPECIMEN / Unknown Lab Venipuncture / Unknown 03/01/2024 4:29 PM NURSE RECRUITER 03/01/2024 5:10 PM NURSE RECRUITER Mariel Short NATIONAL BUSINESS DIRECTOR-HEALTH SCIENCES DEPARTMENT CHAIR LAB - CH EMISTRY ORDERABLES [employer] ([facility]) [address] [place] [address], [facility] * SMOOTH MUSCLE ANTIBODY W REFLEX TITER (03/01/2024 4:29 PM NURSE RECRUITER) F-Actin Antibody IgG 9 0 - 19 Units 03/03/2024 6:31 AM NURSE RECRUITER [employer] ([facility]) Comment: If F-Actin (Smooth Muscle) Antibody, [...] suspicion for AIH is strong. Performed by [facility], [address] [place], [place] [id number] [email or web address], Junior Linares MD, Lab. Director SENAIT Number: [id number] Blood BLOOD SPECIMEN / Unknown Lab Venipuncture / Unknown 03/01/2024 4:29 PM NURSE RECRUITER 03/01/2024 4:57 PM NURSE RECRUITER Mariel Short [facility] - SE ROLOGY ORDERABLES [facility]) [address] [place] [address], [facility] * C-REACTIVE PROTEIN (03/01/2024 4:29 PM NURSE RECRUITER) Pathologist [facility] C-Reactive Protein <0.5 <=0.5 mg/dL 03/01/2024 5:38 PM NURSE RECRUITER [facility] Blood BLOOD SPECIMEN / Unknown Lab Venipuncture / Unknown 03/01/2024 4:29 PM NURSE RECRUITER 03/01/2024 5:04 PM NURSE RECRUITER Mariel Short [facility]NKAMILLA [facility] - CH EMISTRY ORDERABLES [facility] [address] [address], [facility] [phone] * NERI BLOOD SCREEN W/REFLEX TITER (03/01/2024 4:29 PM NURSE RECRUITER) Pathologist [facility] NERI IgG None Detected None Detected 03/03/2024 7:09 AM NURSE RECRUITER [facility] ([facility]) Comment: If suspicion of connective tissue disease is strong and NERI EIA is negative, consider testing for NERI by IFA ([id number]). INTERPRETIVE INFORMATION: Anti-Nuclear Antibodies (NERI), IgG by LOUISA Antinuclear Antibodies (NERI), IgG by LOUISA: NERI specimens are screened using enzyme-linked immunosorbent assay (LOUISA) methodology. All LOUISA results reported as Detected are further tested by indirect fluorescent assay (IFA) using HEp-2 substrate with an IgG-specific conjugate. The NERI LOUISA screen is designed to detect antibodies against dsDNA, histones, SS-A (Ro), SS-B (La), Diallo, Diallo/PROSTHETIC DENTIST, Scl-70, Cora-1, centromeric proteins, other antigens extracted from the HEp-2 cell nucleus. NERI LOUISA assays have been reported to have lower sensitivities than NERI IFA for systemic autoimmune rheumatic diseases (SARD). Negative results do not necessarily rule out SARD. Performed by [facility], [address] [place] [address] www[email or web address], Junior Linares MD, Lab. Director SENAIT Number: [id number] Blood BLOOD SPECIMEN / Unknown Lab Venipuncture / Unknown 03/01/2024 4:29 PM NURSE RECRUITER 03/01/2024 4:57 PM NURSE RECRUITER Mariel Short NATIONAL BUSINESS DIRECTOR-HEALTH SCIENCES DEPARTMENT CHAIR LAB - CH EMISTRY ORDERABLES [employer] ([facility]) [address] [place] [address], [facility] * (ABNORMAL) VITAMIN D 25-HYDROXY (03/01/2024 4:29 PM NURSE RECRUITER) [facility] Vitamin D, 25 Hydroxy 10.3(L) 30.0 - 80.0 ng/mL 03/01/2024 6:09 PM NURSE RECRUITER [facility] Comment: The recommendations for 25-Hydroxy Vitamin D [...] Lab Venipuncture / Unknown 03/01/2024 4:29 PM NURSE RECRUITER 03/01/2024 5:04 PM NURSE RECRUITER Mariel Short NATIONAL BUSINESS DIRECTOR-HEALTH SCIENCES DEPARTMENT CHAIR LAB - CH EMISTRY ORDERABLES [facility] [address] [place] [address], [facility] [phone] * (ABNORMAL) CBC W/ DIFFERENTIAL (03/01/2024 4:29 PM NURSE RECRUITER) WBC 8.7 4.0 - 10.7 x10E9/L 03/01/2024 6:04 PM [facility] RBC Count 4.82 3.90 - 5.20 x10E12/L 03/01/2024 6:04 PM [facility] Hemoglobin 10.8(L) 11.9 - 15.8 g/dL 03/01/2024 6:04 PM [facility] Hematocrit 33.7(L) 34.8 - 46.1 % 03/01/2024 6:04 PM [facility] MCV 69.9(L) 80.0 - 98.0 fL 03/01/2024 6:04 PM [facility] MCH 22.4(L) 26.7 - 33.6 pg 03/01/2024 6:04 PM [facility] MCHC 32.0 31.7 - 36.3 g/dL 03/01/2024 6:04 PM [facility] RDW-CV 18.7(H) 11.3 - 14.8 % 03/01/2024 6:04 PM [facility] Platelet Count 205 150 - 420 x10E9/L 03/01/2024 6:04 PM [facility] Neutrophil % 55.9 41.0 - 74.0 % 03/01/2024 6:04 PM [facility] Lymphocyte % 34.4 17.0 - 47.0 % 03/01/2024 6:04 PM [facility] Monocyte % 7.2 3.0 - 11.0 % 03/01/2024 6:04 PM [facility] Eosinophil % 1.6 0.0 - 7.0 % 03/01/2024 6:04 PM [facility] Basophil % 0.6 0.0 - 1.6 % 03/01/2024 6:04 PM [facility] Immature Granulocytes % 0.3 0.0 - 1.0 % 03/01/2024 6:04 PM [facility] Neutrophil Absolute 4.87 1.60 - 7.50 x10E9/L 03/01/2024 6:04 PM [facility] Lymphocyte Absolute 3.00 1.00 - 4.40 x10E9/L 03/01/2024 6:04 PM [facility] Monocyte Absolute 0.63 0.15 - 1.00 x10E9/L 03/01/2024 6:04 PM [facility] Eosinophil Absolute 0.14 0.00 - 0.60 x10E9/L 03/01/2024 6:04 PM [facility] Basophil Absolute 0.05 0.00 - 0.13 x10E9/L 03/01/2024 6:04 PM [facility] Blood BLOOD SPECIMEN / Unknown Lab Venipuncture / Unknown 03/01/2024 4:29 PM NURSE RECRUITER 03/01/2024 5:04 PM [facility] Mariel Short NATIONAL BUSINESS DIRECTOR-HEALTH SCIENCES DEPARTMENT CHAIR LAB - HE MATOLOGY ORDERABLES Performing Organization Address [facility]/State/ZIP Co de Phone Number [facility] [address] [place] [phone], [facility] [phone] * (ABNORMAL) COMPREHENSIVE METABOLIC PANEL (03/01/2024 4:29 PM NURSE RECRUITER) BUN 12 7 - 26 mg/dL 03/01/2024 5:37 PM [facility] Creatinine 0.55(L) 0.56 - 0.96 mg/dL 03/01/2024 5:37 PM [facility] Sodium 138 136 - 145 mmol/L 03/01/2024 5:37 PM [facility] Potassium 4.2 3.5 - 4.5 mmol/L 03/01/2024 5:37 PM [facility] Chloride 108(H) 98 - 107 mmol/L 03/01/2024 5:37 PM [facility] CO2 26 22 - 29 mmol/L 03/01/2024 5:37 PM [facility] Glucose 88 70 - 99 mg/dL 03/01/2024 5:37 PM [facility] Calcium 9.1 8.4 - 10.2 mg/dL 03/01/2024 5:37 PM [facility] Protein Total 7.4 6.0 - 8.3 g/dL 03/01/2024 5:37 PM [facility] Albumin 4.1 3.4 - 5.0 g/dL 03/01/2024 5:37 PM [facility] Bilirubin Total 0.8 0.2 - 1.2 mg/dL 03/01/2024 5:37 PM [facility] Alkaline Phosphatase 42 40 - 150 U/L 03/01/2024 5:37 PM [facility] ALT 12 5 - 55 U/L 03/01/2024 5:37 PM [facility] AST 13 5 - 34 U/L 03/01/2024 5:37 PM [facility] Anion Gap 4(L) 6 - 16 03/01/2024 5:37 PM [facility] BUN/Creatinine Ratio 22 7 - 23 03/01/2024 5:37 PM [facility] Osmolality Calculated 285 275 - 295 mOsm/kg 03/01/2024 5:37 PM [facility] Albumin/Globulin Ratio 1.2 1.1 - 2.3 03/01/2024 5:37 PM [facility] eGFR by CKD-EPI >90 >=90 mL/min/1.7 3 m2 03/01/2024 5:37 PM [facility] Blood BLOOD SPECIMEN / Unknown Lab Venipuncture / Unknown 03/01/2024 4:29 PM NURSE RECRUITER 03/01/2024 5:04 PM [facility] Mariel Short NATIONAL BUSINESS DIRECTOR-HEALTH SCIENCES DEPARTMENT CHAIR LAB - CH EMISTRY ORDERABLES [facility] [address] [place] [address], [facility] [phone] * (ABNORMAL) HEPATITIS B SURFACE ANTIBODY (03/01/2024 4:29 PM NURSE RECRUITER) Hepatitis B Virus Surface Antibody Reactive( A) Non-react clif 03/01/2024 5:52 PM NURSE RECRUITER [facility] Comment: > 12 mIU/mL Hepatitis B surface Antibody (HBsAb). Reactive for HBsAb - individual is considered immune to Hepatitis B Virus infection. Hepatitis B Surface Antibody Quantitative 101.7(H) <8.0 mIU/mL 03/01/2024 5:52 PM NURSE RECRUITER [facility] Comment: Hepatitis B Surface Antibody Numeric Result Interpretation: ? Nonreactive: ?<8.0 mIU/mL ? Indeterminate: ??8.0 - 12.0 mIU/mL ? Reactive: ?>12.0 mIU/mL ? Blood BLOOD SPECIMEN / Unknown Lab Venipuncture / Unknown 03/01/2024 4:29 PM NURSE RECRUITER 03/01/2024 4:57 PM NURSE RECRUITER Mariel Short NATIONAL BUSINESS DIRECTOR-[facility] LAB - CH EMISTRY ORDERABLES Performing Organization Address City/[facility]/ZIP Co de Phone Number [address] [address], [facility] [phone] * HEPATITIS B CORE ANTIBODY TOTAL (03/01/2024 4:29 PM NURSE RECRUITER) Pathologist [facility] Antibody Total Non-reacti ve Non-reacti ve 03/01/2024 5:52 PM NURSE RECRUITER [facility] Blood BLOOD SPECIMEN / Unknown Lab Venipuncture / Unknown 03/01/2024 4:29 PM NURSE RECRUITER 03/01/2024 4:57 PM NURSE RECRUITER Mariel Short [facility] - CH EMISTRY ORDERABLES Performing Organization Address City/[facility]/ZIP Co de Phone Number [address] [address], [facility] [phone] * HEPATITIS B SURFACE ANTIGEN W RFLX CONFIRMATION (03/01/2024 4:29 PM NURSE RECRUITER) Hepatitis B Virus Surface Antigen Non-reacti ve Non-reacti ve 03/01/2024 5:52 PM NURSE RECRUITER [facility] Blood BLOOD SPECIMEN / Unknown Lab Venipuncture / Unknown 03/01/2024 4:29 PM NURSE RECRUITER 03/01/2024 4:57 PM NURSE RECRUITER Mariel Short [facility] - CH EMISTRY ORDERABLES [address] [address], [facility] [phone] * (ABNORMAL) FOLATE (03/01/2024 4:29 PM NURSE RECRUITER) Folate 5.9(L) 7.0 - 31.4 ng/mL 03/01/2024 6:09 PM NURSE RECRUITER [facility] Blood BLOOD SPECIMEN / Unknown Lab Venipuncture / Unknown 03/01/2024 4:29 PM NURSE RECRUITER 03/01/2024 5:04 PM NURSE RECRUITER Mariel Short [facility] - CH EMISTRY ORDERABLES Performing Organization Address City/[facility]/ZIP Co de Phone Number [address] [address], [facility] [phone] * (ABNORMAL) VITAMIN B12 (03/01/2024 4:29 PM NURSE RECRUITER) Vitamin B12 822(H) 213 - 816 pg/mL 03/01/2024 6:09 PM NURSE RECRUITER [facility] Blood BLOOD SPECIMEN / Unknown Lab Venipuncture / Unknown 03/01/2024 4:29 PM NURSE RECRUITER 03/01/2024 5:04 PM NURSE RECRUITER Mariel Short [facility] - CH EMISTRY ORDERABLES [address] [place] [address], [facility] [phone] * (ABNORMAL) IRON + TRANSFERRIN PANEL [w/Transferrin Sat % + TIBC] (03/01/2024 4:29 PM NURSE RECRUITER) [facility] Iron 88 40 - 150 ug/dL 03/01/2024 5:33 PM [facility] Transferrin 185 174 - 382 mg/dL 03/01/2024 5:33 PM [facility] Transferrin Saturation % 38 16 - 50 % 03/01/2024 5:33 PM [facility] TIBC Calculated 231(L) 240 - 450 ug/dL 03/01/2024 5:33 PM [facility] Blood BLOOD SPECIMEN / Unknown Lab Venipuncture / Unknown 03/01/2024 4:29 PM NURSE RECRUITER 03/01/2024 4:57 PM NURSE RECRUITER Mariel Short [facility] [employer] EMISTRY ORDERABLES [address] [address], [facility] [phone] * HEPATITIS C ANTIBODY (03/01/2024 4:29 PM NURSE RECRUITER) [facility] Hepatitis C Antibody Non-react clif Non-reac tive 03/01/2024 5:52 PM [facility] Comment:Hepatitis C Antibody screen indicates no serologic evidence of past or current infection with Hepatitis C Virus. Patients with unexplained liver disease who are immunocompromised or suspected of having acute Hepatitis C infection may benefit from Nucleic Acid Test (JULIA) for Hepatitis C Viral RNA to confirm Hepatitis C status. Blood BLOOD SPECIMEN / Unknown Lab Venipuncture / Unknown 03/01/2024 4:29 PM NURSE RECRUITER 03/01/2024 4:57 PM NURSE RECRUITER Mariel Short [facility] [employer] CH EMISTRY ORDERABLES [address] [address], [facility] [phone] * (ABNORMAL) FERRITIN (03/01/2024 4:29 PM NURSE RECRUITER) Ferritin 355(H) 13 - 204 ng/mL 03/01/2024 5:52 PM NURSE RECRUITER [facility] Blood BLOOD SPECIMEN / Unknown Lab Venipuncture / Unknown 03/01/2024 4:29 PM NURSE RECRUITER 03/01/2024 4:57 PM NURSE RECRUITER Mariel Short APRNKAMILLA LAB - CH EMISTRY ORDERABLES [facility] [address] [place] [address], [facility] [phone] * MT LIVER ELASTOGRAPHY (03/01/2024 3:55 PM NURSE RECRUITER) Narrative Eligio Ayala MD - 03/01/2024 3:55 PM NURSE RECRUITER Eligio Ayala MD ? 03/03/2024 ??6:26 PM [...] patients with nonalcoholic fatty liver disease. Gastroenterology 2019;156:6894-0734. Zeeshan MS, Carmina R, Van Natta ML, [...] These include the FAST (Fibroscan-AST) score (Rodolfo, 2021) and the Agile3+ and Agile4 scores (Jazmin, 202). Rodolfo TA, Van Natta ML, Ashleigh M, Rocco A, et al. Validation of the accuracy of the FAST score for detecting patients with at-risk nonalcoholic steatohepatitis (PARADA) in a [facility] cohort and comparison to other non-invasive algorithms. PLoS ONE (2021) 17: e7969196. Jazmin AJ, Sara J, Primo ZM, et al. Enhanced diagnosis of advanced fibrosis and cirrhosis in individuals with NAFLD using FibroScan-based Agile scores. J Hepatol (2022) 78: 247-259. Fibroscan LSM can also be used with laboratory parameters without formulas to assess prognosis. According to the Baveno-VII criteria (Cunha, 2021), Fibroscan LSM <=15 kPa plus a platelet count of >=214k277/L rules out clinically significant portal hypertension (sensitivity and negative predictive value >90%) in patients with compensated advanced chronic liver disease. Cunha R, Norman J, Pavan-Rhonda G, Sanjeev T, Douglas Armas on behalf of the Baveno VII Faculty. Baveno VII--Renewing consensus in portal hypertension. J Hepatol (2021) 76: 959-974 Assessing the likelihood of advanced fibrosis in patients with intermediate liver stiffness measurement (LSM) by Fibroscan (e.g., 8-15 kPa) can be improved by also calculating the FIB-4 score (Ashly et al. Hepatology Communications 2019;3:4196-9972) or NAFLD Fibrosis score (Rodgers et al. Clinical Gastroenterology and Hepatology 2019;17:9429-1674 using ??routine clinical data. Note: 1. Fibroscan [...] additional interpretive data was last updated 07/20/22.) [email or web address] Mariel Short NATIONAL BUSINESS DIRECTOR-HEALTH SCIENCES DEPARTMENT CHAIR PROCEDUR E/MINOR SURGICAL ORDERABLES * MAMMO BILAT SCREENING W CLEMENTE (02/09/2024 10:58 AM NURSE RECRUITER) Anatomical Region Laterality Modality Breast Bilateral Mammography 02/09/2024 10:5 8 AM NURSE RECRUITER Impressions 02/09/2024 11:02 AM NURSE RECRUITER IMPRESSION: ??No mammographic evidence of malignancy. Extremely dense breast parenchyma. RECOMMENDATION: 1. Screening mammography in one year, pending no interval breast concerns. 2. Annual screening breast MRI is recommended, given the history of a BRCA2 gene mutation, according to the [place] [employer] guidelines. Her next exam is [...] 02/09/2024 11:02 AM Narrative 02/09/2024 11:02 AM NURSE RECRUITER EXAMINATIONS: ??BILATERAL DIGITAL SCREENING MAMMOGRAM AND BILATERAL BREAST TOMOSYNTHESIS LOCATION: [facility] EXAM DATE: ??02/09/2024 HISTORY: ??Screening. Patient has a BRCA2 gene mutation with a lifetime risk of developing breast cancer greater than 20%. Patient reports history of ovarian cancer in her mother. COMPARISON: Comparison is made to prior mammograms back to 2016. TECHNIQUE: Tomosynthesis (3D) and reconstructed synthetic 2-D [...] ORDERABLES from Last 3 Months Care Teams Strategic Buyer Relationship Specialty Start Date End Date Demar Campbell MD [address] [facility] [address] [place] [address] PCP - General 08/08/17
--- OUTSIDE RECORDS SUMMARY | 2024-03-19 00:50 | XMS_ITS | Encounter Summary ---
Author Organization [facility] Address [address] [place] [address] Care Team Providers Care Replanting Machine Operator Name Role Phone Demar Campbell MD Primary Care Provider [phone] Reason for Referral * Evaluate (Routine) - Open Specialty Diagnoses / Procedures Referred By Contac t Referred To Contact Dermatology Diagnoses Hidradenitis suppurativa Milka Soni MD [address] [place] [address] Yasmine Diallo MD [address] [place] [address] [place] [address] Referral ID Status Reason Start Date Expiration Date V isits Requested Visits Authorized [id number] Open Specialty Services Required 03/03/2024 03/03/2025 1 1 CCO FARMWORKER Encounter Details Date Type Department Care Team (Late st Contact Info) Description 03/03/2024 Orders Only [facility] - [place] [address] [facility] [place], [place] [address] Milka Soni MD [address] [place] [address] Hidradenitis suppurativa Social History Tobacco Use Types Packs/Day Years [...] st Contact Info) Description 04/09/2024 8:00 AM TOBACCO FARMWORKER Office Visit [facility] - [place] [address] [place] [phone] Gigi Bueno MD [address] [place] [address] [place] [address] 07/01/2024 1:30 PM CDT Office Visit [facility] - [place] [address] [place] [phone] Milka Soni MD [address] [place] [address] 08/02/2024 9:30 AM CDT Appointment [facility] MRI [address] [place] [address] Linda Dueñas MD [address] [place] [address] 08/02/2024 10:30 AM CDT Office Visit [facility] - General Surgery [address] [place] [address] Linda Dueñas MD [address] [facility] [place] [address] 02/07/2025 10:30 AM TOBACCO FARMWORKER Appointment [facility] [address] [place] [address] Linda Dueñas MD [address] [place] [address] 02/07/2025 11:00 AM TOBACCO FARMWORKER Office Visit [facility] - General Surgery [address] [place] [address] Linda Dueñas MD [address] [facility] [place] [address] Scheduled Referrals Name Type Priority Associated Diagnoses Order Schedule Ref to General Dermatology - [facility] Outpatient Referral Routine Hidradenitis suppurativa 1 Occurrences starting 03/03/2024 until 03/03/2025 documented as of this encounter Goals Goal Patient Goal Type Associated Problems Recent Progress Patient-Stated? Author Medication Management General On track( 024 2:10 PM TOBACCO FARMWORKER) No Gordy Farnsworth, RN Note: Expected end date: ongoing Interventions: Take all medications as prescribed Let your doctor know right away about any changes in your medications Make sure to request a refill of your medication at least one week prior to your last dose documented as of this encounter Visit Diagnoses Diagnosis Hidradenitis suppurativa- Primary Hidradenitis documented in this encounter Care Teams Replanting Machine Operator Relationship Specialty Start Date End Date Demar Campbell MD [address] [facility] [address] [place] [address] PCP - General 08/08/17 documented as of this encounter
--- OUTSIDE RECORDS SUMMARY | 2024-03-19 00:50 | XMS_ITS | Encounter Summary ---
Author Organization [facility] Address [address] [place] [address] Care Team Providers Care Coal Dumping Equipment Operator Name Role Phone Demar Campbell MD Primary Care Provider [phone] Encounter Details Date Type Department Care Team (Latest Contact Info) Description 03/01/2024 3:30 PM SUPERVISOR FRAMING MILL Procedure visit [facility] - [address] [place] [phone] Milka Soni MD [address] [place] [phone] NAFLD (nonalcoholic fatty liver disease) Social History Tobacco Use Types Packs/Day Years [...] No 12/29/2018 documented as of this encounter Procedure Notes * Shilpa Gardner RN - 03/01/2024 3:55 PM CSTAssociated Order(s): PROC FIBROSCAN Procedure(s): TN LIVER ELASTOGRAPHY Pre-Procedure Diagnose(s): Hepatic fibrosis Diagnosis: Hepatic Fibrosis RN verified patient NPO for prior 3 hours. Procedure explained. Date of Exam: 03/01/2024 Liver Stiffness: (LSM, kPa) median: 4.2 IQR/Median% (ideally < 30%): 7% CAP (controlled attenuation parameter): 342 Technical Difficulty: None Ordering Provider: Mariel Short APRN-FRONT DESK TEAM MEMBER Phone Fax Fibroscan interpretation: I have personally reviewed the [...] patients with nonalcoholic fatty liver disease. Gastroenterology 2019;156:9956-9236. Zeeshan MS, Carmina R, Van Natta ML, et al. Vibration-controlled transient elastography to assess fibrosis and steatosis in patients with nonalcoholic fatty liver disease. Clin Gastroenterol Hepatol 2019;17:156-163. Note that scores have been developed that incorporate the Fibroscan liver stiffness measurement from large cohorts of patients with liver biopsies to further refine the ability of Fibroscan to identify patients with MASH and advanced fibrosis. These include the FAST (Fibroscan-AST) score (Woreta, 2021) and the Agile3+ and Agile4 scores (aJzmin, 202). Rodolfo TA, Van Yu ML, Ashleigh M, Rocco A, et al. Validation of the accuracy of the FAST score for detecting patients with at-risk nonalcoholic steatohepatitis (PARADA) in a [place] cohort andcomparison to other non- invasive algorithms. PLoS ONE (2021) 17: n6543729. Jazmin AJ, Sara J, Primo ZM, et al. Enhanced diagnosis of advanced fibrosis and cirrhosis in individuals with NAFLD using FibroScan-based Agile scores. J Hepatol (2022) 78: 247-259. Fibroscan LSM can also be used with laboratory parameters without formulas to assess prognosis. According to the Baveno-VII criteria (Cunha, 202), Fibroscan LSM <=15 kPa plus a platelet count of >=004h982/L rules out clinically significant portal hypertension (sensitivity and negative predictive value >90%) in patients with compensated advanced chronic liver disease. Cunha R, Norman J, Pavan-Rhonda G, Sanjeev T, Douglas C on behalf of the Baveno VII Faculty. Baveno VII--Renewing consensus in portal hypertension. J Hepatol (2021) 76: 959-974 Assessing the likelihood of advanced fibrosis in patients with intermediate liver stiffness measurement (LSM) by Fibroscan (e.g., 8-15 kPa) can be improved by also calculating the FIB-4 score (Ashly et al. Hepatology Communications 2019;3:2133-8463) or NAFLD Fibrosis score (Rodgers et al. Clinical Gastroenterology and Hepatology 2019;17:8940-6347 using routine clinical data. Note: 1. Fibroscan cannot reliably identify earlier stages of fibrosis (ie distinguish F0 from F1 and F2)and thus a histologic stage cannot be predicted from the Fibroscan reading. 2. Liver stiffness can be increased by factors other than fibrosis including passive congestion, infiltrative processes, active alcoholism, recent moderate alcohol consumption in the 2 weeks before the exam, biliary obstruction and marked inflammation. The interpretation of [...] interpretive data was last updated 07/20/22.) [email or web address] RVISOR FRAMING MILL documented in this encounter Plan of Treatment Upcoming Encounters Date Type Department Care Team (Late st Contact Info) Description 04/09/2024 8: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 FRAMING MILL Office Visit [facility] - GI [address] [place] [phone] Gigi Bueno MD [address] [place] [address] [place] [address] 07/01/2024 1:30 PM CDT Office Visit [facility] [place] [address] [place] [phone] Milka Soni MD [facility] [place] [address] 08/02/2024 9:30 AM CDT Appointment [facility] MRI [address] [place] [phone] Linda Dueñas MD [address] [facility] [place] [address] 08/02/2024 10:30 AM CDT Office Visit [facility] - General Surgery [address] [place] [address] Linda Dueñas MD [address] [facility] [place] [address] 02/07/2025 10:30 AM SUPERVISOR FRAMING MILL Appointment [facility] [address] [place] [address] Linda Dueñas MD [address] [facility] [place] [address] 02/07/2025 11: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 FRAMING MILL Office Visit [facility] - General Surgery [address] [place] [phone] Linda Dueñas MD [address] [facility] [place] [address] documented as of this encounter Goals Goal Patient Goal Type Associated Problems Recent Progress Patient-Stated? Author Medication Management General On track( 024 2:10 PM SUPERVISOR FRAMING MILL) Gordy Rodriguez, HAM Note: Expected end date: ongoing Interventions: Take all medications as prescribed Let your doctor know right away about any changes in your medications Make sure to request a refill of your medication at least one week prior to your last dose documented as of this encounter Procedures Procedure Name Priority Date/Time Associated Diagnosis Comments TN LIVER ELASTOGRAPHY Routine 03/01/2024 3:55 PM SUPERVISOR FRAMING MILL Hepatic fibrosis documented in this encounter Visit Diagnoses Diagnosis NAFLD (nonalcoholic fatty liver disease)- Primary Other chronic nonalcoholic liver disease documented in this encounter Care Teams Coal Dumping Equipment Operator Relationship Specialty Start Date End Date Demar Campbell MD [address] [facility] [address] [facility] [address] [place] [phone] PCP - General 08/08/17 documented as of this encounter
--- OUTSIDE RECORDS SUMMARY | 2024-03-19 00:51 | XMS_ITS | Encounter Summary ---
Author Organization [facility] Address [address] [place] [address] Care Team Providers Care Sr. Unix System Administrator Name Role Phone Demar Campbell MD Primary Care Provider Reason for Referral * Radiology Services (Routine) - Closed Specialty Diagnoses / Procedures Referred By Contac t Referred To Contact Mammography Diagnoses BRCA gene positive Procedures MAMMO BILAT SCREENING W Linda Franklin MD [address] [place] [address] [facility] Breast Dexter Op [address] [place] [address] Referral ID Status Reason Start Date Expiration Date Visits Re quested Visits Authorized [id number] Closed 07/29/2022 07/29/2023 1 1 SILO TENDER Reason for Visit * Radiology Services (Routine) - Closed Specialty Diagnoses / Procedures Referred By Contac t Referred To Contact Mammography Diagnoses BRCA gene positive Procedures MAMMO BILAT SCREENING W Linda Franklin MD [address] [place] [address] [facility] Breast Center Op [address] [place] [address] Referral ID Status Reason Start Date Expiration Date Visits Re quested Visits Authorized [id number] Closed 07/29/2022 07/29/2023 1 1 Encounter Details Date Type Department Care Team (Latest Contact Info) Description 01/27/2023 9:45 AM CHIP SILO TENDER - 01/27/2023 11:59 PM CHIP SILO TENDER Hospital Encounter [facility] [address] [place] [address] Linda Dueñas MD [address] [place] [address] Discharge Disposition: Home or Self Care Social History Tobacco Use Types Packs/Day Years Used Date Smoking Tobacco: Some Days Smokeless Tobacco: Never Alcohol Use Standard Drinks/Week Comments Yes 0 (1 standard drink = 0.6 oz pur e alcohol) rare Sex and Gender Information Value Date Recorded [...] Sig Dispensed Refills Start Date End Date clindamycin (CLEOCIN) 1 % lotionIndications:Hidr adenitis suppurativa,Acne vulgaris Apply to affected areas of HS/body acne twice daily when present. 60 mL 11 08/22/2021 doxycycline hyclate (VIBRAMYCIN) 100 MG tabletIndications:Acne Vulgaris Take 1 pill twice daily with food. Reasons: Common Acne 60 tablet 3 10/02/2021 levonorgestrel (Mirena, 52 MG,) 20 MCG/DAY IUD spironolactone (Aldactone) 100 MG tablet Take 1 (one) tablet by mouth once daily 12/08/2021 cephalexin (KEFLEX) 500 MG capsule Take 500 mg by mouth every 12 hours 04/11/2020 03/01/2024 cyclobenzaprine (FLEXERIL) 5 MG tablet Take 5 mg by mouth 3 times daily as needed FOR MUSCLE SPASM 07/23/2020 03/01/2024 HYDROcodone-acetaminop hen (NORCO) 5-325 MG tablet Take 1 (one) tablet by mouth every 6 hours as needed pain 08/16/2021 03/01/2024 ibuprofen (MOTRIN) 800 MG tablet TK 1 T PO Q 6 TO 8 H WF PRN 12/14/2019 03/01/2024 oxyCODONE-acetaminophe n (PERCOCET) 5-325 MG tablet Take 1 tablet by mouth every 6 hours as needed 07/26/2020 03/01/2024 tretinoin (Retin-A) 0.025 % cream APPLY TOPICALLY TO THE AFFECTED AREA EVERY DAY 07/05/2020 03/01/2024 tretinoin (RETIN-A) 0.025 % creamIndications:Acne vulgaris Pea sized amount to entire face at night as tolerated. 30 days supply. 45 g 11 08/22/2021 03/01/2024 documented as of this encounter Plan of Treatment Upcoming Encounters Date Type Department Care Team (Late st Contact Info) Description 04/09/2024 8:00 AM CHIP SILO TENDER Office Visit [facility] - [address] [phone] Gigi Bueno MD [address] [place] [address] [place] [address] 07/01/2024 1:30 PM CDT Office Visit [facility] - [address] [phone] Milka Soni MD [address] [place] [phone] 08/02/2024 9:30 AM CDT Appointment [address] [phone] Linda Dueñas MD [address] [facility] [place] [address] 08/02/2024 10:30 AM CDT Office Visit [facility] - General Surgery [address] [place] [phone] Linda Dueñas MD [address] [facility] [place] [address] 02/07/2025 10:30 AM CHIP SILO TENDER Appointment [address] [address] Linda Dueñas MD [address] [facility] [place] [address] 02/07/2025 11:00 AM CHIP SILO TENDER Office Visit [facility] General Surgery [address] [place] [phone] Lnida Dueñas MD [address] [facility] [place] [address] documented as of this encounter Procedures Procedure Name Priority Date/Time Associated Diagnosis Comments MAMMO BILAT SCREENING W CLEMENTE Routine 01/27/2023 11:44 AM CHIP SILO TENDER BRCA gene positive documented in this encounter Results * MAMMO BILAT SCREENING W CLEMENTE (01/27/2023 11:44 AM CHIP SILO TENDER) Anatomical Region Laterality Modality Breast Bilateral Mammography 01/27/2023 11:2 8 AM CHIP SILO TENDER Impressions 01/27/2023 11:42 AM CHIP SILO TENDER : ??No mammographic evidence of malignancy. Extremely dense breast parenchyma. RECOMMENDATION: 1. Screening mammography in one year, pending no interval breast concerns. 2. Given the elevated lifetime risk of developing breast cancer greater than 20 screening breast MRI is recommended and her next exam is due in July 2023. Patient notified of results at time of exam and has an appointment with Dr. Dueñas in the breast clinic today. OVERALL ASSESSMENT: ??BI-RADS CATEGORY 1: NEGATIVE. > Interpreting Provider: Funmilayo Vidal MD on 01/27/2023 11:42 AM Narrative 01/27/2023 11:42 AM CHIP SILO TENDER EXAMINATIONS: ??BILATERAL DIGITAL SCREENING MAMMOGRAM AND BILATERAL BREAST TOMOSYNTHESIS WITH CAD LOCATION: [facility] EXAM DATE: ??01/27/2023 HISTORY: ??Screening.Patient has history of a BRCA2 gene mutation, with lifetime risk of developing breast cancer greater than 20%. COMPARISON: Compare prior mammograms back to 2017. TECHNIQUE: Tomosynthesis (3D) and reconstructed synthetic 2-D images acquired and reviewed in the bilateral craniocaudal and mediolateral oblique projections. ??A total of 5 images obtained. Computer-aided detection (CAD) was utilized. ?? BREAST PARENCHYMAL COMPOSITION: Category D: The breasts are extremely dense which lowers the sensitivity of mammography. FINDINGS: There are no suspicious findings or evidence of malignancy on mammography. There is no significant change from the prior. ?? Linda Dueñas MD MAMMO ORDERABLES documented in this encounter Visit Diagnoses Diagnosis BRCA gene positive Genetic susceptibility to malignant neoplasm of breast documented in this encounter Care Teams Sr. Unix System Administrator Relationship Specialty Start Date End Date Demar Campbell MD [address] [facility] [address] [place] [phone] PCP - General 08/08/17 documented as of this encounter
--- OUTSIDE RECORDS SUMMARY | 2024-03-19 00:51 | XMS_ITS | Encounter Summary ---
Author Organization [facility] Address [address] [facility] [place] [address] Care Team Providers Care Noise Abatement Engineer Name Role Phone Demar Campbell MD Primary Care Provider [phone] Reason for Referral * Radiology Services (Routine) - Closed Specialty Diagnoses / Procedures Referred By Contac t Referred To Contact Mammography Diagnoses BRCA gene positive Procedures MAMMO BILAT SCREENING W Linda Franklin MD [address] [phone] [facility] Breast Center Op [address] [place] [address] Referral ID Status Reason Start Date Expiration Date Visits Re quested Visits Authorized [id number] Closed 10/17/2021 10/17/2022 1 1 Encounter Details Date Type Department Care Team (Late st Contact Info) Description 10/17/2021 Orders Only [facility] Surgery [address] [place], [place] [phone] Pretty Ribera RN BRCA gene positive Social History Tobacco Use Types Packs/Day Years [...] st Contact Info) Description 04/09/2024 8:00 AM LOCK EXPERT Office Visit [facility] - GI [address] [place] [phone] Gigi Bueno MD [address] [place] [address] [place] [address] 07/01/2024 1:30 PM CDT Office Visit [facility] - GI [address] [place] [phone] Milka Soni MD [address] [place] [phone] 08/02/2024 9:30 AM CDT Appointment [facility] [address] [place] [phone] Linda Dueñas MD [address] [place] [address] 08/02/2024 10:30 AM CDT Office Visit [facility] - General Surgery [address] [place] [phone] Linda Dueñas MD [address] [place] [address] 02/07/2025 10:30 AM LOCK EXPERT Appointment [address] [place] [address] Linda Dueñas MD [address] [place] [address] 02/07/2025 11:00 AM LOCK EXPERT Office Visit [facility] - General Surgery [address] [place] [phone] Linda Dueñas MD [address] [place] [address] documented as of this encounter Results * MAMMO BILAT SCREENING W CLEMENTE (11/15/2021 10:22 AM CDT) Anatomical Region Laterality Modality Breast Bilateral Mammography 11/15/2021 10:2 4 AM CDT Impressions 11/15/2021 10:56 AM CDT IMPRESSION: ?? 1. Possible slight flattening of the left areola. 2. Stable negative extremely dense right mammogram. RECOMMENDATION: Targeted left breast ultrasound attention periareolar region this be done today. Dr. Vidal discussed the mammogram findings and recommendations with the patient the time of her exam. OVERALL ASSESSMENT: BI-RADS CATEGORY 0: INCOMPLETE: NEED ADDITIONAL IMAGING EVALUATION. > Interpreting Provider: Funmilayo Vidal MD on 11/15/2021 10:56 AM Narrative 11/15/2021 10:56 AM CDT EXAMINATION: DIGITAL MAMMO BILAT SCREENING W CLEMENTE DATE: ??11/15/2021 HISTORY: ??Screening. ??History of BRCA2 gene mutation. COMPARISON: Prior breast imaging dating back to 2018. TECHNIQUE: ??Bilateral synthetic 2-D (C-view) digital mammogram images and bilateral digital breast tomosynthesis were obtained in the craniocaudal and mediolateral oblique projections. ??Total of 5 images obtained. Computer-aided detection (CAD) was utilized. BREAST PARENCHYMAL COMPOSITION: Category D: The breasts are extremely dense which lowers the sensitivity of mammography. FINDINGS: ?? Right side: No suspicious findings or evidence of malignancy. No change from the prior studies. Left side: Possible slight flattening of the left nipple noted. No mass or suspicious finding otherwise. Linda Dueñas MD MAMMO ORDERABLES documented in this encounter Visit Diagnoses Diagnosis BRCA gene positive- Primary Genetic susceptibility to malignant neoplasm of breast BRCA gene positive Genetic susceptibility to malignant neoplasm of breast documented in this encounter Care Teams Noise Abatement Engineer Relationship Specialty Start Date End Date Demar Campbell MD [address] [facility] [address] [facility] [address] [place] [phone] PCP - General 08/08/17 documented as of this encounter
--- OUTSIDE RECORDS SUMMARY | 2024-03-19 00:51 | XMS_ITS | Encounter Summary ---
Author Organization [facility] Address [address] [facility] [place] [address] Care Team Providers Care Display Decorator Name Role Phone Demar Campbell MD Primary Care Provider [phone] Reason for Visit * Radiology Services (Routine) - Closed Specialty Diagnoses / Procedures Referred By Contac t Referred To Contact MRI Diagnoses BRCA gene positive Procedures MRI BREAST BILAT SCREENING WWO MRI BREAST BILAT WWO CONTRAST Linda Dueñas MD [address] [place] [address] [facility] Mri [address] [place] [address] Referral ID Status Reason Start Date Expiration Date Visits Re quested Visits Authorized [id number] Closed 05/06/2022 05/06/2023 1 1 Encounter Details Date Type Department Care Team (Latest Contact Info) Description 07/29/2022 6:30 AM CDT - 07/29/2022 11:59 PM CDT Hospital Encounter [facility] MRI [address] [place] [phone] Linda Dueñas MD [address] [place] [address] Discharge Disposition: Home or Self Care Social History Tobacco Use Types Packs/Day Years Used Date Smoking Tobacco: Some Days Smokeless Tobacco: Never Alcohol Use Standard Drinks/Week Comments Yes 0 (1 standard drink = 0.6 oz pur e alcohol) rare Sex and Gender Information Value Date Recorded Sex Assigned at Not on file Gender Identity Not on file Sexual Orientation Not on file COVID-19 Exposure Response Date Recorded In the last 10 days, have yo u been in contact with someone who was confirmed or suspected to have Coronavirus/COVID-19? No / Unsure 07/29/2022 10:14 AM CDT documented as of this encounter Functional Status [...] st Contact Info) Description 04/09/2024 8:00 AM CHIEF INVESTIGATOR Office Visit [facility] - GI [address] [place] [phone] Gigi Bueno MD [address] [place] [address] [place] [address] 07/01/2024 1:30 PM CDT Office Visit [facility] - GI [address] [place] [phone] Milka Soni MD [address] [place] [phone] 08/02/2024 9:30 AM CDT Appointment [address] [phone] Linda Dueñas MD [address] [place] [address] 08/02/2024 10:30 AM CDT Office Visit [facility] - General Surgery [address] [place] [phone] Linda Dueñas MD [address] [place] [address] 02/07/2025 10:30 AM CHIEF INVESTIGATOR Appointment [address] [place] [address] Linda Dueñas MD [address] [place] [address] 02/07/2025 11:00 AM CHIEF INVESTIGATOR Office Visit [facility] - General Surgery [address] [place] [phone] Linda Dueñas MD [address] [place] [address] documented as of this encounter Procedures Procedure Name Priority Date/Time Associated Diagnosis Comments MRI BREAST BILAT SCREENING WWO Routine 07/29/2022 8:08 AM CDT BRCA gene positive CREATININE - POCT INTERFACED Routine 07/29/2022 7:22 AM CDT documented in this encounter Results * MRI BREAST BILAT SCREENING WWO (07/29/2022 8:08 AM CDT) Anatomical Region Laterality Modality Breast Bilateral Magnetic Resonan ce 07/29/2022 8:30 AM CDT Impressions 07/29/2022 9:47 AM CDT : No MRI evidence of malignancy in either breast. RECOMMENDATION: ?? 1. Continue annual screening mammography, next due in November 2022. 2. Given her elevated lifetime risk of developing breast cancer of greater than 20 %, continued screening breast MRI is recommended, next due in July 2023. Patient will receive breast MRI results from Dr. Dueñas. Left breast MRI: ??BI-RADS category: 1: Negative Right breast MRI: ??BI-RADS category: 1: Negative OVERALL ASSESSMENT: ??BI-RADS CATEGORY 1: NEGATIVE. ?? Drafted by Arielle ScottBrien (vice president integrated). I, Natalia Buckner MD have personally reviewed and interpreted this examination/study. > Interpreting Provider: Natalia Buckner MD on 07/29/2022 9:47 AM Narrative 07/29/2022 9:47 AM CDT EXAM: ??BILATERAL SCREENING BREAST MRI WITH AND WITHOUT CONTRAST WITH DYNACAD ANALYSIS LOCATION: [facility] DATE OF EXAM: ??07/29/2022 HISTORY: 37-year-old with BRCA2 mutation referred for annual high risk screening breast MRI. Patient has history of right breast and right axillary sebaceous cysts. Most recent prior comparison breast MRI on 05/05/2019 performed at [facility] was negative (previously described 3 mm enhancing focus in the central left beast was not re-identified). ??Patient was also breast-feeding at that time. ??She is no longer breast-feeding. ?? LAST MENSTRUAL PERIOD: Patient reports not menstruating, with IUD in place. COMPARISON: ?? 05/05/2019 breast MRI. Comparison/correlation is also made to bilateral screening mammogram 11/15/2021 and left breast ultrasound 11/15/2021. CONTRAST: ??15 cc Dotarem IV. TECHNICAL INFORMATION: ??Study performed on a 3.0 Merlyn magnet. A breast coil was utilized. ??Bilateral axial T1 and axial STIR images, followed by 3D axial T1 fat sat images precontrast and 2 postcontrasted 3D axial fat sat series dynamically, one at 90 seconds and the other at 5 minutes after contrast administration. Between the 2 axial postcontrast images, a sagittal T1-weighted gradient with fat sat was performed of each breast. Subtraction was performed of the 2 axial T1 weighted postcontrast images. Images were reviewed on a workstation with 3D post processing and DynaCAD was utilized. FINDINGS: Parenchymal breast pattern: Extreme fibroglandular tissue. Background parenchymal enhancement: Minimal ?Enhancement is Symmetric. Right breast: ??There is no suspicious enhancement or evidence of malignancy. No enlarged axillary lymph nodes. Left breast: ??There is no suspicious enhancement or evidence of malignancy. No enlarged axillary lymph nodes. Linda Dueñas MD MR ORDERABLES * CREATININE - POCT INTERFACED (07/29/2022 7:22 AM CDT) Creatinine POCT 0.62 0.30 - 1.30 mg/dL 07/29/2022 7:24 AM CDT [facility] eGFR >90 >90 mL/min/1.7 3 m2 07/29/2022 7:24 AM T [facility] Blood BLOOD SPECIMEN / Unknown 07/29/2022 7:22 AM CDT 07/29/2022 7:24 AM CDT Linda Dueñas MD LAB - POINT OF CARE ORDERABLES [facility] [address] [place] [phone], [facility] [phone] documented in this encounter Visit Diagnoses Diagnosis BRCA gene positive Genetic susceptibility to malignant neoplasm of breast documented in this encounter Administered Medications Inactive Administered Medications - up to 3 most recent administrations Medication Order MAR Action Action Date Dose Rate Site gadoterate meglumine (Dotarem/Clariscan) injection Intravenous, CONTRAST ONCE, Starting on 07/29/22 at 0730, Until Tu07/30/22 at 0136 $ Given - Contrast 07/29/2022 8:09 AM CDT 15 mL documented in this encounter Care Teams Display Decorator Relationship Specialty Start Date End Date Demar Campbell MD [address] [facility] [address] [place] [phone] PCP - General 08/08/17 documented as of this encounter
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
--- OUTSIDE RECORDS SUMMARY | 2024-03-19 00:51 | XMS_ITS | Encounter Summary ---
Author Organization [facility] Address [address] [place] [address] Care Team Providers Care Senior Sales Operations Analyst Name Role Phone Demar Campbell MD Primary Care Provider [phone] Encounter Details Date Type Department Care Team (Latest Contact Info) Description 11/15/2021 Travel Social History Tobacco Use Types Packs/Day [...] Recorded In the last 10 days, have germania u been in contact with someone who was confirmed or suspected to have Coronavirus/COVID-19? No / Unsure 11/15/2021 11:28 AM CDT documented as of this encounter [...] st Contact Info) Description 04/09/2024 8:00 AM MULE SPINNER Office Visit [facility] [address] [facility] ([place], [place]), [place] [address] Gigi Bueno MD [address] [place] [address] [place] [address] 07/01/2024 1:30 PM CDT Office Visit [facility] - GI [address] [place] [address], [place] [phone] Milka Soni MD [address] [place] [phone] 08/02/2024 9:30 AM CDT Appointment [address] [phone] Linda Dueñas MD [address] [facility] SURGERY [place] [address] 08/02/2024 10:30 AM CDT Office Visit [facility] - General Surgery [address] [place] [phone] Linda Dueñas MD [address] [facility] SURGERY [place] [address] 02/07/2025 10:30 AM MULE SPINNER Appointment [address] [address] Linda Dueñas MD [address] [facility] SURGERY [place] [address] 02/07/2025 11:00 AM MULE SPINNER Office Visit [facility] - General Surgery [address] [place] [phone] Linda Dueñas MD [address] [facility] SURGERY [place] [address] documented as of this encounter Visit Diagnoses Not on filedocumented in this encounter Care Teams Senior Sales Operations Analyst Relationship Specialty Start Date End Date Demar Campbell MD [address] [facility] [address] [facility] 20 [place] [phone] PCP - General 08/08/17 documented as of this encounter
--- OUTSIDE RECORDS SUMMARY | 2024-03-19 00:51 | XMS_ITS | Encounter Summary ---
Author Organization [facility] Address [address] [place] [address] Care Team Providers Care Car Shifter Name Role Phone Demar Campbell MD Primary Care Provider [phone] Reason for Referral * Radiology Services (Routine) - Closed Specialty Diagnoses / Procedures Referred By Contac t Referred To Contact MRI Diagnoses BRCA gene positive Procedures MRI BREAST BILAT SCREENING Linda Avalos MD [address] [place] [address] [facility] [address] [place] [phone] Referral ID Status Reason Start Date Expiration Date Visits Re quested Visits Authorized [id number] Closed 01/27/2023 01/27/2024 1 1 Reason for Visit * Radiology Services (Routine) - Closed Specialty Diagnoses / Procedures Referred By Contac t Referred To Contact MRI Diagnoses BRCA gene positive Procedures MRI BREAST BILAT SCREENING Linda Avalos MD [address] [facility] [place] [address] [facility] [address] [place] [address] Referral ID Status Reason Start Date Expiration Date Visits Re quested Visits Authorized [id number] Closed 01/27/2023 01/27/2024 1 1 Encounter Details Date Type Department Care Team (Latest Contact Info) Description 08/04/2023 9:30 AM CDT - 08/04/2023 11:59 PM CDT Hospital Encounter [facility] MRI [address] [place] [address] Linda Dueñas MD [address] [place] [address] Discharge Disposition: Home or Self Care Social [...] st Contact Info) Description 04/09/2024 8:00 AM STORAGE WORKER Office Visit [facility] - [address] [phone] Gigi Bueno MD [address] [place] [address] [place] [address] 07/01/2024 1:30 PM CDT Office Visit [facility] - [address] [phone] Milka Soni MD [address] [place] [phone] 08/02/2024 9:30 AM CDT Appointment [address] [phone] Linda Dueñas MD [address] [facility] [place] [address] 08/02/2024 10:30 AM CDT Office Visit [facility] - General Surgery [address] [place] [phone] Linda Dueñas MD [address] [facility] [place] [address] 02/07/2025 10:30 AM STORAGE WORKER Appointment [address] [address] Linda Dueñas MD [address] [facility] [place] [address] 02/07/2025 11:00 AM STORAGE WORKER Office Visit [facility] Physician [facility] Surgery [address] [place] [phone] Linda Dueñas MD [address] [facility] [place] [address] documented as of this encounter Procedures Procedure Name Priority Date/Time Associated Diagnosis Comments MRI BREAST BILAT SCREENING WWO Routine 08/04/2023 11:58 AM CDT BRCA gene positive CREATININE - POCT INTERFACED Routine 08/04/2023 11:18 AM CDT documented in this encounter Results * MRI BREAST BILAT SCREENING WWO (08/04/2023 11:58 AM CDT) Anatomical Region Laterality Modality Breast [...] > Interpreting Provider: Funmilayo Vidal MD on 08/04/2023 12:54 PM Narrative 08/04/2023 12:54 PM CDT EXAM: ??BILATERAL SCREENING BREAST MRI WITH AND WITHOUT CONTRAST WITH DYNACAD ANALYSIS LOCATION: [facility] EXAM DATE: ??08/04/2023 HISTORY: ?Screening. [...] with outside breast MRI scan from [facility] dated 10/23/2016 and outside breast MRI also from [facility] dated 12/25/2017. CONTRAST: ??14 cc Dotarem IV. [...] - POCT INTERFACED (08/04/2023 11:18 AM CDT) Creatinine POCT 0.61 0.30 - 1.30 mg/dL 08/04/2023 11:22 AM CDT [facility] eGFR >90 >=90 mL/min/1.7 3 m2 08/04/2023 11:22 AM CDT [facility] Blood BLOOD SPECIMEN / Unknown 08/04/2023 11:18 AM CDT 08/04/2023 11:22 AM CDT Linda Dueñas MD LAB - POINT OF CARE ORDERABLES Performing Organization Address City/[facility] Co de Phone Number [place] [phone] [phone] documented in this encounter Visit Diagnoses Diagnosis BRCA gene positive Genetic susceptibility to malignant neoplasm of breast documented in this encounter Administered Medications Inactive Administered Medications - up to 3 most recent administrations Medication Order MAR Action Action Date Dose Rate Site gadoterate meglumine (Dotarem/Clariscan) injection Intravenous, CONTRAST ONCE, Starting on 08/04/23 at 1131, Until Tu08/05/23 at 0131 $ Given - Contrast 08/04/2023 11:46 AM CDT 14 mL documented in this encounter Care Teams Car Shifter Relationship Specialty Start Date End Date Demar Campbell MD [address] [facility] 20 [place] [phone] PCP - General 08/08/17 documented as of this encounter
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
--- OUTSIDE RECORDS SUMMARY | 2024-03-19 00:51 | XMS_ITS | Encounter Summary ---
Author Organization [facility] Address [address] [facility] [address] [place] [address] Care Team Providers Care Registered Nurse Hh Case Manager Name Role Phone Demar Campbell MD Primary Care Provider [phone] Encounter Details Date Type Department Care Team (Late st Contact Info) Description 04/12/2022 Orders Only [facility] [address] [place] [address], [place] [address] Florinda Montenegro MD [address] [place] [address] [address] [place] [address] Encounter for long-term (current) use of high-risk medication Social History Tobacco Use Types Packs/Day Years [...] st Contact Info) Description 04/09/2024 8:00 AM PATTERN STORAGE CLERK Office Visit [facility] - GI [address] [place] [phone] Gigi Bueno MD [address] [place] [address] [place] [address] 07/01/2024 1:30 PM CDT [facility] [address] [place] [phone] Milka Soni MD [address] [place] [phone] 08/02/2024 9:30 AM CDT Appointment [address] [phone] Linda Dueñas MD [address] [place] [address] 08/02/2024 10:30 AM CDT Office Visit [facility] - General Surgery [address] [place] [phone] Linda Dueñas MD [address] [place] [address] 02/07/2025 10:30 AM PATTERN STORAGE CLERK Appointment [address] [address] Linda Dueñas MD [address] [place] [address] 02/07/2025 11:00 AM PATTERN STORAGE CLERK Office Visit [facility] - General Surgery [address] [place] [phone] Linda Dueñas MD [address] [place] [address] documented as of this encounter Visit Diagnoses Diagnosis Encounter for long-term (current) use of high-risk medication Encounter for long-term (current) use of other medications documented in this encounter Care Teams Registered Nurse Hh Case Manager Relationship Specialty Start Date End Date Demar Campbell MD [address] [facility] [address] [facility] [address] [place] [address] PCP - General 08/08/17 documented as of this encounter
--- OUTSIDE RECORDS SUMMARY | 2024-03-19 00:51 | XMS_ITS | Encounter Summary ---
Author Organization [facility] Address [address] [place] [address] Care Team Providers Care Cross Country And Track And Field Coach Name Role Phone Demra Campbell MD Primary Care Provider [phone] Reason for Visit * Reason Comments Establish Care Encounter Details Date Type Department Care Team (Late st Contact Info) Description 08/02/2020 12:45 PM CDT Office Visit [facility] Plastic Surgery [address] [place] [address], [place] [phone] Bela Schrader MD [address] [place] [address] OF PLASTIC SURGERY [place], [place] [id number] BRCA2 gene mutation positive in female (Primary Dx); Smoking; Family history of breast cancer Social History [...] Sign Reading Time Taken Comments Blood Pressure 102/71 08/02/2020 12:43 PM CDT Pulse 68 08/02/2020 12:43 PM CDT Temperature 36.8 ??C (98.2 ??F) 08/02/2020 12:43 PM C DT Respiratory Rate - - Oxygen Saturation 98% 08/02/2020 12:43 PM CDT Inhaled Oxygen Concentration - - Weight 79.4 kg (175 lb) 08/02/2020 12:43 PM CDT Height 165.1 cm (5' 5 ) 08/02/2020 12:43 PM CDT Body Mass Index 29.12 08/02/2020 12:43 PM CDT documented in this encounter Functional Status [...] this encounter Patient Instructions * Patient Instructions* Sofy Rivera MD - 08/02/2020 1:37 PM CDT Quit smoking. Follow up in 3 months. documented in this encounter Progress Notes * Bela Schrader MD - 08/02/2020 1:15 PM CDT Plastic Surgery Clinic Note 08/02/2020 HISTORY: Tessy Medina is a 35 year old female with a long family history of breast cancer and history ofBRCA2 gene mutation who presents to our clinic to discuss possible breast reconstruction. She hadd recent lower back pain radiating to the right hip 10 days ago, on oxycodone and steroid pack, weaning pain meds and steroids. Plans to have therapy for lower back pain. As for her breast reconstruction, she is interested in bilateral prophylactic mastectomy with plastic tile layer/implant-based reconstruction. She unfortunately is an active smoker, keeps smoking off and on, her last cigarette was about a week ago. I would defer any prophylactic mastectomy and reconstructiontill patient has quit smoking completely. I had an extensive discussion with the patient that with her being an active smoker and having large breasts with ptosis, she would not be a candidate for nipple sparing mastectomy. Also she finally stopped breast feeding recently. PAST MEDICAL HISTORY: Past Medical History: Diagnosis Date ??? BRCA2 positive ??? Ulcerative colitis PAST SURGICAL HISTORY: Past Surgical History: Procedure Laterality Date ??? Section 2017 ??? COLONOSCOPY N/A 12/29/2018 N/A; COLONOSCOPY DIAGNOSTIC ??? ENDOSCOPY, UPPER N/A 12/29/2018 N/A; ESOPHAGOGASTRODUODENOSCOPY (EGD) DIAGNOSTIC MEDICATIONS: Current Outpatient Medications Medication Sig Dispense Refill ??? cephalexin (KEFLEX) 500 MG capsule Take 500 mg by mouth every 12 hours ??? cyclobenzaprine (FLEXERIL) 5 MG tablet Take 5 mg by mouth 3 times daily as needed FOR MUSCLE SPASM ??? ibuprofen (MOTRIN) 800 MG tablet TK 1 T PO Q 6 TO 8 H WF PRN ??? methylPREDNISolone (MEDROL DOSEPAK) 4 MG tablet as directed ??? oxyCODONE-acetaminophen (PERCOCET) 5-325 MG tablet Take 1 tablet by mouth every 6 hours as needed ??? tretinoin (RETIN-A) 0.025 % cream APPLY TOPICALLY TO THE AFFECTED AREA EVERY DAY No current facility-administered medications for this visit. ALLERGIES: has No Known Allergies. SOCIAL HISTORY: Social History Tobacco Use ??? Smoking status: Current Some Day Smoker ??? Smokeless tobacco: Never Used Vaping Use ??? Vaping Use: Never used Substance Use Topics ??? Alcohol use: Yes Comment: rare ??? Drug use: Never FAMILY HISTORY: Family History Problem Relation Name Age of Onset ??? Cancer - Ovarian Mother ??? Cancer - Prostate Maternal Uncle ocbar ??? Cancer - Liver Maternal Uncle hasan REVIEW OF SYSTEMS: As per HPI otherwise non-contributory Exam- BP 102/71 Pulse 68 Temp 98.2 ??F (36.8 ??C) Ht 5' 5 (1.651 m) Wt 175 lb (79.4 kg) SpO2 98% BMI 29.12 kg/m2 Endo: Resting comfortably psych: Normal affect CVS: RRR respiration: Normal respiratory effort Breasts: Large breasts with bilateral grade 2. She does have superficial wounds over the breasts which are healing well, no active infection currently noted, as patient scratches her breasts frequently. No palpable breast masses or axillary lymphadenopathy appreciated. Abdomen: Soft, nondistended, nontender extremities: Warm and well-perfused A/P- 35-year-old female with the long-standing family history of breast cancer and BRCA2 gene mutation with the high lifetime risk of breast cancer - we had an extensive discussion with the patient regarding various reconstructive options following prophylactic mastectomies for immediate breast reconstruction - primarily interested in staged breast reconstruction with tissue expanders followed by implants - she is trying to quit smoking, still continues to smoke off and on. Ideally I would recommend that she quit smoking before we proceed with surgery. - She is fairly adamant about having a nipple sparing mastectomy, I had an extensive discussion with the patient that she is currently not a good candidate for nipple sparing mastectomy as she has large breasts with ptosis and she is an active smoker. On account of that she would be a candidate primarily for the skin sparing mastectomy. We also discussed various options for nipple reconstruction. - In addition, patient had significant concerns with nipple sensation. I did mention to her that even if she were to be a candidate for nipple sparing mastectomy, she would lose most of her nipple sensation even after a nipple sparing mastectomy and the loss of nipple sensation is permanent. In hercase, if she has nipple reconstruction, she will not have any nipple sensation in the nipple reconstruction. - Patient mentioned that she is having marital issues with her and would like to delay any breast reconstruction surgery at least till after the summer. Finally, she did mention that she is okay with a standard skin sparing mastectomy but is afraid her would push for nipple sparing mastectomy - I'll see her back in 3-4 months - I again strongly encouraged her to quit smoking and also not to restart Bela Schrader MD, FACS Division of Plastic Surgery [facility] documented in this encounter Plan of Treatment Upcoming Encounters Date Type Department Care Team (Late st Contact Info) Description 04/09/2024 8:00 AM WATER/WASTEWATER ENGINEER Office Visit [facility] - GI [address] [place] [address], [place] [address] Gigi Bueno MD [address] [place] [address] [place] [address] 07/01/2024 1:30 PM CDT Office Visit [facility] - GI [address] [facility], [place] [address] Milka Soni MD [address] [place] [phone] 08/02/2024 9:[address] [facility] [address] [place] [address] Linda Dueñas MD [address] [place] [address] 08/02/2024 10:30 AM CDT Office Visit [facility] - General Surgery [address] [place] [phone] Linda Dueñas MD [address] [facility] [place] [address] 02/07/2025 10:30 AM WATER/WASTEWATER ENGINEER Appointment [address] [address] Linda Dueñas MD [address] [facility] [place] [address] 02/07/2025 11:00 AM WATER/WASTEWATER ENGINEER Office Visit [facility] Physician [facility] Surgery [address] [place] [phone] Linda Dueñas MD [address] [facility] [place] [address] documented as of this encounter Visit Diagnoses Diagnosis BRCA2 gene mutation positive in female- Primary Smoking Tobacco use disorder Family history of breast cancer Family history of malignant neoplasm of breast documented in this encounter Care Teams Cross Country And Track And Field Coach Relationship Specialty Start Date End Date Demar Campbell MD [address] [phone] PCP - General 08/08/17 documented as of this encounter
--- OUTSIDE RECORDS SUMMARY | 2024-03-19 00:51 | XMS_ITS | Encounter Summary ---
Author Organization [facility] Address [address] [place] [address] Care Team Providers Care Dope And Fabric Worker Name Role Phone Demar Campbell MD Primary Care Provider [phone] Reason for Visit * Reason Onset Date Comments MEDICATION REFILL 10/02/2021 Encounter Details Date Type Department Care Team (Late st Contact Info) Description 10/02/2021 Refill [facility] [address] [place] [address], [place] [address] Sophie Hanson MD [address] [place] [address] [address] [place] [address] MEDICATION REFILL Social History Tobacco Use Types Packs/Day Years [...] No 12/29/2018 documented as of this encounter Miscellaneous Notes * Telephone Encounter - Ania Chavez MA - 10/02/2021 3:22 PM CDT LV: 08-22-21 NV: 9 RTC: 4 months documented in this encounter Plan of Treatment Upcoming Encounters Date Type Department Care Team (Late st Contact Info) Description 04/09/2024 8:00 AM DUMPLING MACHINE OPERATOR Office Visit [facility] - GI [address] [place] [phone] Gigi Bueno MD [address] [place] [address] [place] [address] 07/01/2024 1:30 PM CDT Office Visit [facility] - GI [address] [place] [phone] Milka Soni MD [facility] [place] [address] 08/02/2024 9:30 AM CDT Appointment [facility] [address] [place] [address] Linda Dueñas MD [address] [place] [address] 08/02/2024 10:30 AM CDT Office Visit [facility] Group - General Surgery [address] [place] [address] Linda Dueñas MD [address] [place] [address] 02/07/2025 10:30 AM DUMPLING MACHINE OPERATOR Appointment [address] [address] Linda Dueñas MD [address] [place] [address] 02/07/2025 11:00 AM DUMPLING MACHINE OPERATOR Office Visit [facility] - General Surgery [address] [place] [address] Linda Dueñas MD [address] [facility] [place] [address] documented as of this encounter Visit Diagnoses Diagnosis Hidradenitis suppurativa Hidradenitis Acne vulgaris Other acne documented in this encounter Care Teams Dope And Fabric Worker Relationship Specialty Start Date End Date Demar Campbell MD [address] [facility] [address] [phone] PCP - General 08/08/17 documented as of this encounter
--- OUTSIDE RECORDS SUMMARY | 2024-03-19 00:51 | XMS_ITS | Encounter Summary ---
Author Organization [facility] Address [address] [facility] [place] [address] Care Team Providers Care Lime Kiln And Recausticizing Operator Name Role Phone Demar Campbell MD Primary Care Provider [phone] Reason for Visit * Radiology Services (Routine) - Closed Specialty Diagnoses / Procedures Referred By Contac t Referred To Contact Diagnoses BRCA2 positive Procedures MAMMO BILAT DIAGNOSTIC MAMMO BILAT SCREENING Linda Duñeas MD [address] [place] [address] Referral ID Status Reason Start Date Expiration Date Visits Re quested Visits Authorized [id number] Closed 04/20/2020 04/20/2021 1 1 Encounter Details Date Type Department Care Team (Latest Contact Info) Description 04/20/2020 10:22 AM DEVIL DOG - 04/20/2020 11:59 PM [facility] Hospital Encounter [facility] [address] [place] [address] Linda Dueñas MD [address] [facility] [place] [address] Discharge Disposition: Home or Self Care Social [...] Exposure Response Date Recorded In the last month, have you been in contact with someone who was confirmed or suspected to have Coronavirus / COVID-19? Unable to assess 04/05/2020 11:47 AM DEVIL DOG documented as of this encounter Functional Status [...] Sig Dispensed Refills Start Date End Date cephalexin (KEFLEX) 500 MG capsule Take 500 mg by mouth every 12 hours 04/11/2020 03/01/2024 ibuprofen (MOTRIN) 800 MG tablet TK 1 T PO Q 6 TO 8 H WF PRN 12/14/2019 03/01/2024 documented as of this encounter Plan of Treatment Upcoming Encounters Date Type Department Care Team (Late st Contact Info) Description 04/09/2024 8:00 AM DEVIL DOG Office Visit [facility]ician Group - GI [address] [place] [phone] Gigi Bueno MD [address] [place] [address] [place] [address] 07/01/2024 1:30 PM CDT Office Visit [facility] - GI [address] [place] [phone] Milka Soni MD [address] [place] [phone] 08/02/2024 9:30 AM CDT Appointment [address] [phone] Linda Dueñas MD [address] [facility] [place] [address] 08/02/2024 10:30 AM CDT Office Visit [facility] Physician [facility] - General Surgery [address] [place] [phone] Linda Dueñas MD [address] [facility] [place] [address] 02/07/2025 10:30 AM DEVIL DOG Appointment [address] [address] Linda Dueñas MD [address] [facility] [place] [address] 02/07/2025 11:00 AM DEVIL DOG Office Visit [address] [phone] Linda Dueñas MD [address] [facility] [place] [address] documented as of this encounter Procedures Procedure Name Priority Date/Time Associated Diagnosis Comments MAMMO BILAT DIAGNOSTIC Routine 04/20/2020 11:14 AM DEVIL DOG BRCA2 positive documented in this encounter Results * MAMMO BILAT DIAGNOSTIC (04/20/2020 11:14 AM DEVIL DOG) Anatomical Region Laterality Modality Breast Bilateral Mammography 04/20/2020 12:1 3 PM DEVIL DOG Impressions 04/20/2020 5:06 PM DEVIL DOG IMPRESSION: No bilateral diagnostic mammographic or bilateral [...] BENIGN This report was electronically signed by FER QUEEN M.D. ??on 04/20/2020 5:06 PM . Narrative 04/20/2020 5:06 PM DEVIL DOG EXAM: ??MAMMO BILAT DIAGNOSTIC WITH 3D AND [...] lymph nodes. Linda Dueñas MD MAMMO ORDERABLES documented in this encounter Visit Diagnoses Diagnosis BRCA2 positive Genetic susceptibility to malignant neoplasm of breast documented in this encounter Care Teams Lime Kiln And Recausticizing Operator Relationship Specialty Start Date End Date Demar Campbell MD [address] [phone] PCP - General 08/08/17 documented as of this encounter
--- OUTSIDE RECORDS SUMMARY | 2024-03-19 00:51 | XMS_ITS | Encounter Summary ---
Author Organization [facility] Address [address] [facility] [place] [address] Care Team Providers Care Electronic Repair Troubleshooter Name Role Phone Demar Campbell MD Primary Care Provider [phone] Reason for Referral * Radiology Services (Routine) - Closed Specialty Diagnoses / Procedures Referred By Contac t Referred To Contact Mammography Diagnoses BRCA gene positive Procedures MAMMO BILAT SCREENING W Linda Franklin MD [address] [facility] [place] [address] [facility] [address] [place] [address] Referral ID Status Reason Start Date Expiration Date Visits Re quested Visits Authorized [id number] Closed 08/05/2023 08/04/2024 1 1 LSTERY TECH Reason for Visit * Radiology Services (Routine) - Closed Specialty Diagnoses / Procedures Referred By Contac t Referred To Contact Mammography Diagnoses BRCA gene positive Procedures MAMMO BILAT SCREENING W Linda Franklin MD [address] [facility] [place] [address] [facility] Op [address] [place] [address] Referral ID Status Reason Start Date Expiration Date Visits Re quested Visits Authorized [id number] Closed 08/05/2023 08/04/2024 1 1 Encounter Details Date Type Department Care Team (Latest Contact Info) Description 02/09/2024 9:45 AM UPHOLSTERY TECH - 02/09/2024 11:59 PM UPHOLSTERY TECH Hospital Encounter [facility] [address] [place] [address] Linda Dueñas MD [address] [place] [address] Discharge Disposition: Home or Self Care Social [...] Sign Reading Time Taken Comments Blood Pressure - - Pulse - - Temperature - - Respiratory Rate - - Oxygen Saturation - - Inhaled Oxygen Concentration - - Weight 77.1 kg (170 lb) 02/09/2024 10:02 AM UPHOLSTERY TECH Height - - Body Mass Index 28.29 01/27/2023 11:44 AM UPHOLSTERY TECH documented in this encounter Functional Status Functional [...] TO 8 H WF PRN 12/14/2019 03/01/2024 omeprazole (PriLOSEC) 20 MG capsule Take 1 (one) capsule by mouth 2 times daily, before breakfast and supper 11/19/2023 03/03/2024 oxyCODONE-acetaminophe n (PERCOCET) 5-325 MG tablet Take [...] st Contact Info) Description 04/09/2024 8:00 AM UPHOLSTERY TECH Office Visit [facility] - [address] [facility], [place] [address] Gigi Bueno MD [address] [place] [address] [place] [address] 07/01/2024 1:30 PM CDT Office Visit [facility] - GI [address] [place] [address], [place] [address] Milka Soni MD [address] [place] [address] 08/02/2024 9:30 AM CDT Appointment [facility] MRI [address] [place] [phone] Linda Dueñas MD [address] [facility] [place] [address] 08/02/2024 10:30 AM CDT Office Visit [facility] - General Surgery [address] [place] [phone] Linda Dueñas MD [address] [place] [address] 02/07/2025 10:30 AM UPHOLSTERY TECH Appointment [address] [address] Linda Dueñas MD [address] [facility] [place] [address] 02/07/2025 11:00 AM UPHOLSTERY TECH Office Visit [facility] - General Surgery [address] [place] [phone] Linda Dueñas MD [address] [facility] [place] [address] documented as of this encounter Procedures Procedure Name Priority Date/Time Associated Diagnosis Comments MAMMO BILAT SCREENING W CLEMENTE Routine 02/09/2024 10:58 AM UPHOLSTERY TECH BRCA gene positive documented in this encounter Results * MAMMO BILAT SCREENING W CLEMENTE (02/09/2024 10:58 AM UPHOLSTERY TECH) Anatomical Region Laterality Modality Breast Bilateral Mammography 02/09/2024 10:5 8 AM UPHOLSTERY TECH Impressions 02/09/2024 11:02 AM UPHOLSTERY TECH IMPRESSION: ??No mammographic evidence of malignancy. Extremely dense breast parenchyma. RECOMMENDATION: 1. Screening mammography in one year, pending no interval breast concerns. 2. Annual screening breast MRI is recommended, given the history of a BRCA2 gene mutation, according to the [employer] guidelines. Her next exam is [...] 02/09/2024 11:02 AM Narrative 02/09/2024 11:02 AM UPHOLSTERY TECH EXAMINATIONS: ??BILATERAL DIGITAL SCREENING MAMMOGRAM AND BILATERAL BREAST TOMOSYNTHESIS LOCATION: [facility] EXAM DATE: ??02/09/2024 HISTORY: ??Screening. Patient [...] documented in this encounter Care Teams Electronic Repair Troubleshooter Relationship Specialty Start Date End Date Demar Campbell MD [address] [phone] PCP - General 08/08/17 documented as of this encounter
--- OUTSIDE RECORDS SUMMARY | 2024-03-19 00:51 | XMS_ITS | Encounter Summary ---
Author Organization [facility] Address [address] [place] [address] Care Team Providers Care Bus Person Dishwasher Name Role Phone Demar Campbell MD Primary Care Provider [phone] Reason for Referral * Radiology Services (Routine) - Closed Specialty Diagnoses / Procedures Referred By Vj heredia Referred To Contact Diagnoses BRCA gene positive Procedures US BREAST LEFT LTD Linda Dueñas MD [address] [place] [address] Referral ID Status Reason Start Date Expiration Date Visits Re quested Visits Authorized [id number] Closed 11/15/2021 11/15/2022 1 1 Reason for Visit * Radiology Services (Routine) - Closed Specialty Diagnoses / Procedures Referred By Vj heredia Referred To Contact Diagnoses BRCA gene positive Procedures US BREAST LEFT LTD Linda Dueñas MD [address] [place] [address] Referral ID Status Reason Start Date Expiration Date Visits Re quested Visits Authorized [id number] Closed 11/15/2021 11/15/2022 1 1 Encounter Details Date Type Department Care Team (Latest Contact Info) Description 11/15/2021 10:33 AM CDT - 11/15/2021 11:59 PM CDT Hospital Encounter [address] [address] Linda Dueñas MD [address] [facility] [place] [address] Discharge Disposition: Home or Self Care Social [...] levonorgestrel (Mirena, 52 MG,) 20 MCG/DAY IUD cephalexin (KEFLEX) 500 MG capsule Take 500 [...] TO 8 H WF PRN 12/14/2019 03/01/2024 methylPREDNISolone (MEDROL DOSEPAK) 4 MG tablet as directed 07/23/2020 01/03/2022 oxyCODONE-acetaminophe n (PERCOCET) 5-325 MG tablet Take 1 tablet by mouth every 6 hours as needed 07/26/2020 03/01/2024 predniSONE (Deltasone) 20 MG tablet Take 60 mg by mouth once daily 11/08/2020 01/03/2022 tretinoin (Retin-A) 0.025 % cream APPLY TOPICALLY TO THE AFFECTED AREA EVERY DAY 07/05/2020 03/01/2024 tretinoin (RETIN-A) 0.025 % creamIndications:Acne vulgaris Pea sized amount to entire face at night as tolerated. 30 days supply. 45 g 11 08/22/2021 03/01/2024 documented as of this encounter Plan of Treatment Upcoming Encounters Date Type Department Care Team (Late st Contact Info) Description 04/09/2024 8:00 AM RUBBER GOODS INSPECTOR Office Visit [facility] - GI [address] [place] [phone] Gigi Bueno MD [address] [place] [address] [place] [address] 07/01/2024 1:30 PM CDT Office Visit [facility] - [address] [phone] Milka Soni MD [address] [place] [phone] 08/02/2024 9:30 AM CDT Appointment [address] [phone] Linda Dueñas MD [address] [facility] [place] [address] 08/02/2024 10:30 AM CDT Office Visit [facility] - General Surgery [address] [place] [phone] Linda Dueñas MD [address] [facility] [place] [address] 02/07/2025 10:30 AM RUBBER GOODS INSPECTOR Appointment [address] [address] Linda Dueñas MD [address] [facility] [place] [address] 02/07/2025 11:00 AM RUBBER GOODS INSPECTOR Office Visit [facility] Surgery [address] [place] [phone] Linda Dueñas MD [address] [facility] [place] [address] documented as of this encounter Procedures Procedure Name Priority Date/Time Associated Diagnosis Comments US BREAST LEFT LTD Routine 11/15/2021 11 :01 AM CDT BRCA gene positive documented in this encounter Results * US BREAST LEFT LTD (11/15/2021 11:01 [...] breast MRI is recommended, according to the [employer] guidelines. This could be alternated at 6 month intervals with mammography performed at the time of screening mammography. Patient is scheduled to see Dr. Dueñas breast clinic today. Dr. [place] discussed the ultrasound findings and recommendations with the patient the time of her exam. OVERALL ASSESSMENT: ??BI-RADS CATEGORY 1: NEGATIVE. > Interpreting Provider: Funmilayo [place] MD on 11/15/2021 10:57 AM Narrative 11/15/2021 [...] suspicious finding. Linda Dueñas MD US ORDERABLES documented in this encounter Visit Diagnoses Diagnosis BRCA gene positive Genetic susceptibility to malignant neoplasm of breast documented in this encounter Care Teams Bus Person Dishwasher Relationship Specialty Start Date End Date Demar Campbell MD [address] [facility] 20 [place] [address] PCP - General 08/08/17 documented as of this encounter
--- OUTSIDE RECORDS SUMMARY | 2024-03-19 00:51 | XMS_ITS | Encounter Summary ---
Author Organization [facility] Address [address] [facility] [place] [address] Care Team Providers Care Pump Installation And Servicer Name Role Phone Demar Campbell MD Primary Care Provider [phone] Encounter Details Date Type Department Care Team (Late st Contact Info) Description 03/15/2022 Orders Only [facility] [address] [place] [address], [place] [address] Florinda Montenegro MD [address] [place] [address] 3 [place] [address] Encounter for long-term (current) use [...] st Contact Info) Description 04/09/2024 8:00 AM PLASTER DIE MAKER Office Visit [facility] - GI [address] [place] [phone] Gigi Bueno MD [address] [place] [address] [place] [address] 07/01/2024 1:30 PM CDT Office Visit [facility] - GI [address] [place] [phone] Milka Soni MD [address] [place] [phone] 08/02/2024 9:30 AM CDT Appointment [address] [phone] Linda Dueñas MD [address] [place] [address] 08/02/2024 10:30 AM CDT Office Visit [facility] - General Surgery [address] [place] [phone] Linda Dueñas MD [address] [place] [address] 02/07/2025 10:30 AM PLASTER DIE MAKER Appointment [address] [phone] Linda Dueñas MD [address] [place] [address] 02/07/2025 11:00 AM PLASTER DIE MAKER Office Visit [facility] - General Surgery [address] [place] [phone] Linda Dueñas MD [address] [place] [address] documented as of this encounter Visit Diagnoses Diagnosis Encounter for long-term (current) use of high-risk medication Encounter for long-term (current) use of other medications documented in this encounter Care Teams Pump Installation And Servicer Relationship Specialty Start Date End Date Demar Campbell MD [address] [facility] 162 [facility] 20 [place] [address] PCP - General 08/08/17 documented as of this encounter
--- OUTSIDE RECORDS SUMMARY | 2024-03-19 00:51 | XMS_ITS | Encounter Summary ---
Author Organization [facility] Address [address] [place] [address] Care Team Providers Care Client Support Associate Name Role Phone Demar Campbell MD Primary Care Provider [phone] Encounter Details Date Type Department Care Team (Late st Contact Info) Description 12/22/2019 Orders Only [facility] - Orthopedics [address] [place] [address] Trice Lee PA No Information available Left knee pain, unspecified chronicity Social History Tobacco Use Types Packs/Day Years [...] st Contact Info) Description 04/09/2024 8:00 AM SILICA MIXER OPERATOR Office Visit [facility] - GI [address] [facility] [place], [place] [address] Gigi Bueno MD [address] [place] [place] [address] [place] [address] 07/01/2024 1:30 PM CDT Office Visit [facility] - GI [address] [place] [phone] Milka Soni MD [address] [place] [phone] 08/02/2024 9:30 AM CDT Appointment [address] [phone] Linda Dueñas MD [address] [place] [address] [place] [address] 08/02/2024 10:30 AM CDT Office Visit [facility] - General Surgery [address] [place] [phone] Linda Dueñas MD [address] [facility] [place] [address] 02/07/2025 10:30 AM SILICA MIXER OPERATOR Appointment [address] [address] Linda Dueñas MD [address] [facility] [place] [address] 02/07/2025 11:00 AM SILICA MIXER OPERATOR Office Visit [facility] - General Surgery [address] [place] [phone] Linda Dueñas MD [address] [place] [address] [place] [address] documented as of this encounter Results * XR KNEE LEFT 4VW OR MORE [...] . Trice [facility] documented in this encounter Visit Diagnoses Diagnosis Left knee pain, unspecified chronicity- Primary Left knee pain, unspecified chronicity documented in this encounter Care Teams Client Support Associate Relationship Specialty Start Date End Date Demar Campbell MD [address] [facility] 20 [place] [address] PCP - General 08/08/17 documented as of this encounter
--- OUTSIDE RECORDS SUMMARY | 2024-03-19 00:51 | XMS_ITS | Encounter Summary ---
Author Organization [facility] Address [address] [facility] [place] [address] Care Team Providers Care Screen Printing Machine Loader Unloader Name Role Phone Demar Campbell MD Primary Care Provider [phone] Reason for Referral * Radiology Services (Routine) - Pending Review Specialty Diagnoses / Procedures Referred By Contac t Referred To Contact Mammography Diagnoses BRCA gene positive Procedures Mammo Bilat Screening W Linda Reynolds MD [address] [facility] [address] [facility] Op [address] [place] [address] Referral ID Status Reason Start Date Expiration Date V isits Requested Visits Authorized [id number] Pending Review 02/09/2024 02/08/[address]RICIAN * Radiology Services (Routine) - Pending Review Specialty Diagnoses / Procedures Referred By Contac t Referred To Contact MRI Diagnoses BRCA gene positive Procedures MRI Breast Bilat Screening Linda Scruggs MD [address] [facility] [address] [facility] Mri [address] [place] [address] Referral ID Status Reason Start Date Expiration Date V isits Requested Visits Authorized [id number] Pending Review 02/09/2024 02/08/[address]RICIAN Reason for Visit * Reason Comments Follow-up BRCA2 genetic mutati on Encounter Details Date Type Department Care Team (Late st Contact Info) Description 02/09/2024 10:30 AM RAILWAY SIGNAL ELECTRICIAN Office Visit [facility] - General Surgery [address] [place] [address] Linda Dueñas MD [address] [facility] SURGERY DEPARTMENT [address] BRCA2 positive (Primary Dx); BRCA gene positive; BRCA2 genetic carrier Social History Tobacco Use Types Packs/Day Years Used Date Smoking Tobacco: Some Days Smokeless Tobacco: Never Tobacco Cessation:Ready to Q uit: Not Asked; Counseling Given: Not Answered Alcohol Use Standard Drinks/Week Comments Yes 0 (1 standard drink = 0.6 oz pur e alcohol) rare Sex and Gender Information Value Date Recorded Sex Assigned at Not on file Gender Identity Not on file Sexual Orientation Not on file documented as of this encounter Last Filed Vital Signs Vital Sign Reading Time Taken Comments Blood Pressure 91/64 02/09/2024 10:33 AM RAILWAY SIGNAL ELECTRICIAN Pulse 69 02/09/2024 10:33 AM RAILWAY SIGNAL ELECTRICIAN Temperature 36.1 ??C (97 ??F) 02/09/2024 10:33 AM RAILWAY SIGNAL ELECTRICIAN Respiratory Rate - - Oxygen Saturation 97% 02/09/2024 10:33 AM RAILWAY SIGNAL ELECTRICIAN Inhaled Oxygen Concentration - - Weight 77.1 kg (170 lb) 02/09/2024 10:33 AM RAILWAY SIGNAL ELECTRICIAN Height 165.1 cm (5' 5 ) 02/09/2024 10:33 AM RAILWAY SIGNAL ELECTRICIAN Body Mass Index 28.29 02/09/2024 10:33 AM RAILWAY SIGNAL ELECTRICIAN documented in this encounter Functional Status Functional [...] this encounter Patient Instructions * Patient Instructions* Pretty Ribera RN - 02/09/2024 11:25 AM RAILWAY SIGNAL ELECTRICIAN Follow up with Dr. Dueñas in 6 months with a breast MRI before visit. WAY SIGNAL ELECTRICIAN documented in this encounter Progress Notes * Linda Dueñas MD - 02/09/2024 10:30 AM CST Patient Name: Tessy Medina : 1985 Chief Complaint Patient presents with Follow-up BRCA2 genetic mutation HISTORY OF PRESENT ILLNESS: Tessy Medina is a 38 year old female with a BRCA2 genetic mutation and ulcerative colitis who presents for follow up. Her last visit was 01/27/2023. Today she has no new breast masses, nipple discharge, or skin changes. She has been under a significant amount of stress - she has pancolitis and has follow up with GI for UC. Also recently diagnosedwith liver fibrosis and was referred to a specialist that she has not seen yet. Had covid in September and has been much more fatigued and intermittently dizzy with abdominal pain. 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 She presents today for clinical exam, mammogram, and high risk surveillance visit. ALLERGIES: No Known Allergies PAST MEDICAL HISTORY: Past Medical History: Diagnosis Date BRCA2 positive Ulcerative colitis (HCC) PAST SURGICAL HISTORY: Past Surgical History: Procedure Laterality Date Section 2018 COLONOSCOPY N/A 12/29/2018 N/A; COLONOSCOPY DIAGNOSTIC ENDOSCOPY, UPPER N/A 12/29/2018 N/A; ESOPHAGOGASTRODUODENOSCOPY (EGD) DIAGNOSTIC MEDICATIONS: Current Outpatient Medications Medication Sig Dispense Refill cephalexin (KEFLEX) 500 MG capsule Take 500 mg by mouth every 12 hours (Patient not taking: Reported on 08/22/2021) clindamycin (CLEOCIN) 1 % lotion Apply to affected areas of HS/body acne twice daily when present. 60 mL 11 cyclobenzaprine (FLEXERIL) 5 MG tablet Take 5 mg by mouth 3 times daily as needed FOR MUSCLE SPASM (Patient not taking: Reported on 08/22/2021) doxycycline hyclate (VIBRAMYCIN) 100 MG tablet Take 1 pill twice daily with food. Reasons: Common Acne 60 tablet 3 HYDROcodone-acetaminophen (NORCO) 5-325 MG tablet Take 1 (one) tablet by mouth every 6 hours as needed pain ibuprofen (MOTRIN) 800 MG tablet TK 1 T PO Q 6 TO 8 H WF PRN (Patient not taking: Reported on 08/22/2021) levonorgestrel (Mirena, 52 MG,) 20 MCG/DAY IUD oxyCODONE-acetaminophen (PERCOCET) 5-325 MG tablet Take 1 tablet by mouth every 6 hours as needed (Patient not taking: Reported on 08/22/2021) spironolactone (Aldactone) 100 MG tablet Take 1 (one) tablet by mouth once daily tretinoin (Retin-A) 0.025 % cream APPLY TOPICALLY TO THE AFFECTED AREA EVERY DAY (Patient not taking: Reported on 07/29/2022) tretinoin (RETIN-A) 0.025 % cream Pea sized amount to entire face at night as tolerated. 30 days supply. (Patient not taking: Reported on 07/29/2022) 45 g 11 FAMILY HISTORY: Family History Problem Relation Name Age of Onset Cancer - Ovarian Mother Cancer - Prostate Maternal Uncle ocbar Cancer - Liver Maternal Uncle hasan Sister and mother positive for BRCA2 mutation. SOCIAL HISTORY: Social History Tobacco Use Smoking status: Some Days Smokeless tobacco: Never Vaping Use Vaping status: Never Used Substance Use Topics Alcohol use: Yes Comment: rare Drug use: Never GYNECOLOGIC HISTORY: Menarche at age 14 years with first delivery at age 21 years History of ? - yes, breastfed all children for 2 years History of OCP use? - uses mirena (no OCP) History of HRT use? - no REVIEW OF SYSTEMS See HPI PHYSICAL EXAM (unchanged except as noted) BP 91/64 Pulse 69 Temp 97 ??F (36.1 ??C) (Temporal) Ht 1.651 m (5' 5 ) Wt 77.1 kg (170 lb) SpO2 97% General: alert, cooperative, in no distress Eyes: conjunctiva and lids normal ENT/Mouth: neck supple, no visible oral lesions Respiratory: unlabored respirations CV: regular heart rate Musculoskeletal: warm with no deformities On breast exam in both the upright and supine positions, she has symmetrical breasts that are of normal contour and shape. No dominant masses in either breast -- dense breast tissue laterally symmetric bilaterally. No nipple retraction or discharge. No cervical, supraclavicular or axillary lymphadenopathy bilaterally. RADIOLOGY REVIEW: Bilateral screening mammogram 02/09/2024 -- no suspicious masses, microcalcifications, or architectural distortion. BIRADS-1 DIAGNOSIS: 38 year old female with a BRCA2 genetic mutation conferring an approximately 60-80% lifetime risk of breast cancer. PLAN: -- All pertinent records and reports available to me reviewed and summarized -- She has no concerning findings today on clinical exam. -- Mammogram performed today showed no suspicious masses or evidence of malignancy (BIRADS-1) -- She understands that she can undergo risk reducing surgery at any time. She previously saw Dr. Schrader and Dr. Birmingham. Dr Birmingham recommended a reduction/lift with staged nipple sparing mastectomy as she would like to have nipples preserved -- At this time, she is under significant stress with her own health and family - will continue high risk screening for now with yearly mammograms and breast MRIs -- Follows with her choir leader in [place] for ovarian cancer surveillance -- Follows with GI for ulcerative colitis and was referred to hepatology for possible liver fibrosis -- Follows with dermatology for HS. -- Return to clinic in 6 months for clinical exam and breast MRI or sooner with any changes, questions, or concerns. 30 minutes were spent in review of records, evaluation, treatment, counseling, and documentation. Linda Dueñas MD 02/09/2024 8:[address] ELECTRICIAN documented in this encounter Plan of Treatment Upcoming Encounters Date Type Department Care Team (Late st Contact Info) Description 04/09/2024 8:00 AM RAILWAY SIGNAL ELECTRICIAN Office Visit [facility] - GI [address] [place] [address], [place] [phone] Gigi Bueno MD [address] [place] [address] [place] [address] 07/01/2024 1:30 PM CDT Office Visit [facility] - GI [address] [facility], Third Level [phone] Milka Soni MD [address] [place] [address] 08/02/2024 9:30 AM CDT Appointment [facility] [place] [place] [address] [place] [address] Linda Dueñas MD [address] [facility] [address] 08/02/2024 10:30 AM CDT Office Visit [facility] - General Surgery [address] [place] [phone] Linda Dueñas MD [address] [facility] DEPARTMENT [address] 02/07/2025 10:30 AM RAILWAY SIGNAL ELECTRICIAN Appointment [address] [address] Linda Dueñas MD [address] SURGERY DEPARTMENT [address] 02/07/2025 11:00 AM RAILWAY SIGNAL ELECTRICIAN Office Visit [facility] Physician [address] [phone] Linda Dueñas MD [address] SURGERY DEPARTMENT [address] Scheduled Orders Name Type Priority Associated Diagnoses Orde r Schedule MRI Breast Bilat Screening [facility] Imaging Routine BRCA gene positive 1 Occurrences starting 02/09/2024 until 02/08/2025 Mammo Bilat Screening W [facility] Routine BRCA gene positive 1 Occurrences starting 02/09/2024 until 05/13/2025 documented as of this encounter Visit Diagnoses Diagnosis BRCA2 positive- Primary Genetic susceptibility to malignant neoplasm of breast BRCA gene positive Genetic susceptibility to malignant neoplasm of breast BRCA2 genetic carrier Genetic susceptibility to malignant neoplasm of breast documented in this encounter Care Teams Screen Printing Machine Loader Unloader Relationship Specialty Start Date End Date Demar Campbell MD [address] [facility] 20 [place] [address] PCP - General 08/08/17 documented as of this encounter
--- OUTSIDE RECORDS SUMMARY | 2024-03-19 00:51 | XMS_ITS | Encounter Summary ---
Author Organization [facility] Address [address] [facility] [place] [address] Care Team Providers Care Dx Board Operator Name Role Phone Demar Campbell MD Primary Care Provider [phone] Encounter Details Date Type Department Care Team (Late st Contact Info) Description 12/24/2019 1:03 PM CDT - 12/24/2019 11:59 PM CDT Hospital Encounter [facility] [address] [place] [address] Trice eLe PA No Information available Discharge Disposition: Home or Self Care Social [...] Sig Dispensed Refills Start Date End Date ibuprofen (MOTRIN) 800 MG tablet TK 1 T PO Q 6 TO 8 H WF PRN 12/14/2019 03/01/2024 documented as of this encounter Plan of Treatment Upcoming Encounters Date Type Department Care Team (Late st Contact Info) Description 04/09/2024 8:00 AM OPERATIONAL METEOROLOGIST Office Visit [facility] - GI [address] [place] [phone] Gigi Bueno MD [address] [place] [address] [place] [address] 07/01/2024 1:30 PM CDT Office Visit [facility] - GI [address] [place] [phone] Milka Soni MD [address] [place] [phone] 08/02/2024 9:30 AM CDT Appointment [address] [phone] Linda Dueñas MD [address] [place] [address] 08/02/2024 10:30 AM CDT Office Visit [facility] - General Surgery [address] [place] [phone] Linda Dueñas MD [address] [place] [address] 02/07/2025 10:30 AM OPERATIONAL METEOROLOGIST Appointment [address] [address] Linda Dueñas MD [address] [facility] [place] [address] 02/07/2025 11:00 AM OPERATIONAL METEOROLOGIST Office Visit [facility] - General Surgery [address] [place] [phone] Linda Dueñas MD [address] [facility] [place] [address] documented as of this encounter Procedures Procedure Name Priority Date/Time Associated Diagnosis Comments XR KNEE LEFT 4VW OR MORE Routine 12/24/2019 1:13 PM CDT Left knee pain, unspecified chronicity documented in this encounter Results * XR KNEE LEFT [...] PM . Trice [facility] [place] documented in this encounter Visit Diagnoses Diagnosis Left knee pain, unspecified chronicity documented in this encounter Care Teams Dx Board Operator Relationship Specialty Start Date End Date Demar Campbell MD [address] [facility] [address] [facility] 20 [place] [address] PCP - General 08/08/17 documented as of this encounter
--- OUTSIDE RECORDS SUMMARY | 2024-03-19 00:51 | XMS_ITS | Encounter Summary ---
Author Organization [facility] Address [address] [place] [address] Care Team Providers Care Training Professional Name Role Phone Demar Campbell MD Primary Care Provider [phone] Reason for Visit * Reason Comments Breast Cancer Encounter Details Date Type Department Care Team (Late st Contact Info) Description 05/17/2020 9:00 AM APPEALS REVIEWER VETERAN Office Visit [facility] Plastic Surgery [address] [place] [address], [place] [phone] Bela Schrader MD [address] [place] [address] OF PLASTIC SURGERY [place], [place] [id number] BRCA2 gene mutation positive in female (Primary Dx); Infected cyst of skin; Smoking Social History Tobacco Use Types Packs/Day Years [...] Sign Reading Time Taken Comments Blood Pressure 115/70 05/17/2020 9:25 AM APPEALS REVIEWER VETERAN Pulse 78 05/17/2020 9:25 AM APPEALS REVIEWER VETERAN Temperature 36.3 ??C (97.3 ??F) 05/17/2020 9:25 AM CS T Respiratory Rate - - Oxygen Saturation 98% 05/17/2020 9:25 AM APPEALS REVIEWER VETERAN Inhaled Oxygen Concentration - - Weight 77.1 kg (170 lb) 05/17/2020 9:25 AM APPEALS REVIEWER VETERAN Height 165.1 cm (5' 5 ) 05/17/2020 9:25 AM APPEALS REVIEWER VETERAN Body Mass Index 28.29 05/17/2020 9:25 AM APPEALS REVIEWER VETERAN documented in this encounter Functional Status Functional [...] this encounter Patient Instructions * Patient Instructions* Bela Schrader MD - 05/17/2020 10:32 AM APPEALS REVIEWER VETERAN - Stop smoking - Stop nursing - Take antibiotic (bactrim) - Follow up in 6 weeks ALS REVIEWER VETERAN documented in this encounter Progress Notes * Bela Schrader MD - 06/08/2020 1:01 PM CDT Patient seen and examined with Resident. Please see note for further details. I confirm history, exam, assessment and plan. In addition I note: Brief History: Patient is a pleasant 34-year-old female who has a history of ulcerative colitis andBRCA2 gene mutation who presents to our clinic to discuss possible breast reconstruction surgery. In addition patient has a strong family history of breast cancer. On account of her BRCA2 gene mutation, patient is interested in prophylactic mastectomies for risk reduction purposes. She is also interested in bilateral immediate breast reconstruction at the time of her mastectomies. Her sister had bilateral breast reconstruction with MONICA flaps and had a bad experience, patient is primarily leaning towards implant-based reconstruction. She is still nursing intermittently. Does not plan on having any more kids. She does get superficial abscesses over her breasts. Her current bra size is 36C, she would like to be a full C/small D cup. She is currently a smoker, smoking 3-4 cigarettes per day, states that she can stop smoking at any time. Off note she has a history of ulcerative colitis, previously she was on Remicade, she has stopped it a few months ago. Examination: BP 115/70 Pulse 78 Temp 97.3 ??F (36.3 ??C) Ht 5' 5 (1.651 m) Wt 170 lb (77.1 kg) SpO2 98% BMI 28.29 kg/m2 general: Resting comfortably psych: Normal affect CVS: RRR Respiration: Normal respiratory effort Breasts: Bilateral grade 2 ptosis. She does have superficial abscesses on her breasts which are healing, no active drainage or cellulitis noted. Axillary lymphadenopathy or breast masses appreciated bilaterally. Right (in cm) Left (in cm) Sternal notch to nipple 26 25 nipple to IMF 12 11 Breast width 13 13 NAC diameter 6 6 abdomen: Soft, nondistended, nontender extremities: Warm and well-perfused Assessment and plan: 34-year-old female with a history ulcerative colitis and BRCA2 gene mutation with higher lifetime risk of breast cancer - on account of high lifetime risk of breast cancer due to BRCA2 gene mutation, patient is interested in bilateral prophylactic mastectomy and bilateral immediate breast reconstruction - all of her recent breast imaging has been negative for malignancy - she is an active smoker, I strongly recommended that she quit smoking prior to doing any breast reconstruction - he is actively lactating also, I recommended that she quit lactating prior to her breast reconstruction as it increases wound healing complications. - Patient is interested in nipple sparing mastectomy, I mentioned to her that given her ptosis, it would be challenging to do a pull sparing mastectomy - patient was given a prescription for Bactrim for her superficial breast abscesses - We did discuss various reconstructive options in detail including autologous reconstruction (TRAM/ Bilateral Latissimus dorsi flap) and tissue high school mathematics teacher/implant reconstruction with & without AlloDerm. - After considering the various reconstructive options she decided to proceed with tissue high school mathematics teacher/implant reconstruction with AlloDerm - We did discuss the staged nature of the reconstruction involving the initial stage with tissue high school mathematics teacher/AlloDerm placement at the time of mastectomy with serial expansion in the office followed by another surgery for implant exchange. - We did discuss the risks of surgery including bleeding/hematoma requiring re- operation, mastectomy skin flap necrosis, infection requiring return to the OR with the removal of the implant/exchange and subsequent surgery mo later date for replacement of the implant/high school mathematics teacher, scarring, wound healing complications like wound dehiscence, asymmetry from one side to another requiring matching procedures for symmetry and need for revisional surgery in the future - We discussed the option of choosing saline vs silicone implant with the recommendation of MRI at 5-6 yrs and then every 2-3 yrs if she proceeds with silicone implants as per the current FDA recommendations. - We also discussed the option of nipple reconstruction and fat grafting at a later date for any contour abnormalities - Finally, we did discuss the topic of breast radiation. In her case, it will not affect her reconstruction as she is having B/L prophylactic mastectomies and will not be getting radiation - I will see her back once she quits smoking and has stopped lactating, to plan for breast reconstruction - Patient is a smoker and I discussed the deleterious effects of smoking on wound healing especially increased risk of wound dehiscence with poor scarring and increased risk of infection. I encouraged the patient to quit smoking. Patient reports smoking _0.25_-ppd/_10__years cigarettes. This constitutes ongoing moderate dependency Patient was advised of the risks of continuing to smoke including but not limited to risk of cancer, increased risk of complications with breast reconstruction, heart attack, stroke, vascular diseaseand amputation. Patient's willingness to stop smoking was assessed and expressed as _X_very willing Methods for smoking cessation were discussed including but not limited to smoking cessation clinic,ongoing supportive therapy, nicotine gum, patches, and pharmacologic drugs including but not limited to Chantix and Wellbutrin Appropriate resources regarding all of the above were provided to the patient. Patient is willing to set a quit date of 1 month Follow up has been arranged as noted in the after visit summary. Amount of time spent counseling patient face to face__5__minutes Bela Schrader MD, FACS [facility] Division of Plastic Surgery Pager: Date of service: 05/17/2020 * Raymundo Segura MD - 05/17/2020 9:44 AM CST Plastic Surgery History and Physical Note Attending: Dr. Schrader Name: Tessy Wooten Carol Date: 05/17/20 Chief Complaint: Chief Complaint Patient presents with ??? Breast Cancer HPI: 34yo F with hx of Ulcerative colitis (previously on remicade, stopped many months ago, not on steroids) and known BRCA2 mutation who presents to discuss bilateral breast reconstruction. She has already seen Dr. Dueñas. Her sister also had breast reconstruction with bilateral MONICA flaps and did nothave a good experience. Her mother to breast cancer. She has had prior cysts of her breasts that have been biopsied and came back as benign. She has intermittently had palpable masses that were appreciated by her male infertility specialist, so she would like to have her mastectomy for peace of mind. Patient is currently an everyday smoker, 3-4 cigarettes per day, states she can stop at any time Patients current bra size is 36D, but she is currently nursing which she plans to stop when she hasa surgery date Baseline bra size is 34C, would like to be a D or DD cup size Does not plan to have anymore children No history of wound healing or keloid scarring She would like to have her surgery as soon as possible 04/20/20 Mammogram with bilateral breast ultrasound: No bilateral diagnostic mammographic or bilateral complete sonographic evidence of malignancy. Small benign sebaceous cysts noted in the right breast 2:00 region as well as in the right axilla. Review of Systems General ROS: negative Psychological ROS: negative Ophthalmic ROS: negative Allergy and Immunology ROS: see HPI Hematological and Lymphatic ROS: negative Endocrine ROS: negative Breast ROS: see HPI Respiratory ROS: negative Cardiovascular ROS: negative Gastrointestinal ROS: negative Genito-Urinary ROS: negative Musculoskeletal ROS: negative Neurological ROS: negative Dermatological ROS: see HPI Past Medical History: Past Medical History: Diagnosis Date ??? BRCA2 positive ??? Ulcerative colitis Past Surgical History: Past Surgical History: Procedure Laterality Date ??? Section 2018 ??? COLONOSCOPY N/A 12/29/2018 N/A; COLONOSCOPY DIAGNOSTIC ??? ENDOSCOPY, UPPER N/A 12/29/2018 N/A; ESOPHAGOGASTRODUODENOSCOPY (EGD) DIAGNOSTIC Medications: Current Outpatient Medications: ??? cephalexin (KEFLEX) 500 MG capsule, Take 500 mg by mouth every 12 hours, Disp: , Rfl: ??? ibuprofen (MOTRIN) 800 MG tablet, TK 1 T PO Q 6 TO 8 H WF PRN, Disp: , Rfl: Allergies: No Known Allergies Family History: Family History Problem Relation Name Age of Onset ??? Cancer - Ovarian Mother ??? Cancer - Prostate Maternal Uncle ocbar ??? Cancer - Liver Maternal Uncle hasan Social History: Social History Tobacco Use ??? Smoking status: Current Some Day Smoker ??? Smokeless tobacco: Never Used Substance Use Topics ??? Alcohol use: Yes Comment: rare ??? Drug use: Never Objective: Vitals: 05/17/20 0925 BP: 115/70 Pulse: 78 Temp: 97.3 ??F (36.3 ??C) SpO2: 98% Weight: 170 lb (77.1 kg) Height: 5' 5 (1.651 m) Estimated body mass index is 28.29 kg/m?? as calculated from the following: Height as of this encounter: 5' 5 (1.651 m). Weight as of this encounter: 170 lb (77.1 kg). Gen: Alert and cooperative, NAD HEENT: MMM Lungs: NLB on room air CV: RR Abd: Soft Ext: WWP Breast: Bilateral breast grade 2 Ptosis Right Left SN-N 26 25 N-IMF 12 11 BW 13 13 NAC 6 6 Assessment/Plan: 34yo F with hx of BRCA2 mutation who wishes bilateral prophylactic mastectomies and implant based reconstruction -Patient will need optimization as surgical candidate prior to reconstruction. She is otherwise a potential good candidate for implant based reconstruction. Discussed timeline and staging of TE with alloderm and implant exchange later down the road - Patient must stop smoking and stop nursing - NSM or skin sparing mastectomy will have to be judged once patient has stopped nursing, will discuss with Dr. Dueñas, particularly with her having grade 2 ptosis. May not be a candidate for NSM - Will need to be off of nicotine for one month prior to reconstruction - Risks, benefits, alternatives, procedure, recovery discussed with patient, who demonstrated understanding. - Risks include but are not limited to bleeding, infection, damage to surrounding structures, scarring, wound healing problems, need for further surgery - Patient demonstrates understanding and wishes to proceed Patient seen and discussed with Dr. Schrader. Raymundo Segura MD 05/17/2020 9:45 AM documented in this encounter Plan of Treatment Upcoming Encounters Date Type Department Care Team (Late st Contact Info) Description 04/09/2024 8:00 AM APPEALS REVIEWER VETERAN Office Visit [facility] - GI [address] [place] [phone] Gigi Bueno MD [address] [place] [address] [place] [address] 07/01/2024 1:30 PM CDT Office Visit [facility] - GI [address] [place] [address], [place] [address] Milka Soni MD [address] [place] [phone] 08/02/2024 9:30 AM CDT Appointment [address] [phone] Linda Dueñas MD [address] [facility] [place] [address] 08/02/2024 10:30 AM CDT Office Visit [facility] - General Surgery [address] [place] [phone] Linda Dueñas MD [address] [place] [address] 02/07/2025 10:30 AM APPEALS REVIEWER VETERAN Appointment [address] [address] Linda Dueñas MD [address] [place] [address] 02/07/2025 11:00 AM APPEALS REVIEWER VETERAN Office Visit [facility] - General Surgery [address] [place] [phone] Linda Dueñas MD [address] [place] [address] documented as of this encounter Visit Diagnoses Diagnosis BRCA2 gene mutation positive in female- Primary Infected cyst of skin Sebaceous cyst Smoking Tobacco use disorder documented in this encounter Care Teams Training Professional Relationship Specialty Start Date End Date Demar Campbell MD [address] [facility] [address] [place] [address] PCP - General 08/08/17 documented as of this encounter
--- OUTSIDE RECORDS SUMMARY | 2024-03-19 00:51 | XMS_ITS | Encounter Summary ---
Author Organization [facility] Address [address] [facility] [place] [address] Care Team Providers Care Pasting Machine Operator Name Role Phone Demar Campbell MD Primary Care Provider [phone] Reason for Visit * Reason Comments Positive For Genetic Mutation BRCA2 muta tion Encounter Details Date Type Department Care Team (Late st Contact Info) Description 04/20/2020 11:00 AM DANCING MASTER Office Visit [facility] General Surgery [address] [place] [address] Linda Dueñas MD [address] [facility] SURGERY DEPARTMENT [address] BRCA2 positive (Primary Dx) Social History Tobacco Use Types Packs/Day Years [...] COVID-19? Unable to assess 04/05/2020 11:47 AM DANCING MASTER documented as of this encounter Last Filed Vital Signs Vital Sign Reading Time Taken Comments Blood Pressure 96/70 04/20/2020 12:16 PM DANCING MASTER Pulse 57 04/20/2020 12:16 PM DANCING MASTER Temperature 36.1 ??C (96.9 ??F) 04/20/2020 12:[address] Respiratory Rate 18 04/20/2020 12:16 PM DANCING MASTER Oxygen Saturation 100% 04/20/2020 12:16 PM DANCING MASTER Inhaled Oxygen Concentration - - Weight 76.7 kg (169 lb) 04/20/2020 12:16 PM DANCING MASTER Height 165.1 cm (5' 5 ) 04/20/2020 12:16 PM DANCING MASTER Body Mass Index 28.12 04/20/2020 12:16 PM DANCING MASTER documented in this encounter Functional Status Functional [...] encounter Patient Instructions * Patient Instructions* Pretty Lerner RN - 04/20/2020 12:28 PM DANCING MASTER Appointment with Dr. Ernandez (BRCA 2 mutation) Appointment with Dr. Schrader (BRCA 2 mutation) You will be contacted with a date and time for surgery after your consultation with Dr. Schrader. ING MASTER documented in this encounter Progress Notes * Linda Dueñas MD - 04/20/2020 11:00 AM CST Patient Name: Tessy Medina : 1985 Chief Complaint Patient presents with ??? Positive For Genetic Mutation BRCA2 mutation HISTORY OF PRESENT ILLNESS: Tessy Zarate is a 34 year old female with a BRCA2 genetic mutation and ulcerative colitis who presents for follow up. She was last seen one year ago in 04/2019 -- she reports a recent right breast skin infection a few weeks ago that drained pus. This wound is improving but is still not completely healed -- she has a couple more days left of antibiotics. She has no new breast masses, nipple discharge, or skin changes. She is planning on weaning her twins from in the next month. Today she is interested in talking about prophylactic surgery. Her sister underwent prophylactic surgery with autologous MONICA flap reconstruction. She presents today for clinical exam, bilateral breast ultrasound, [facility]. ALLERGIES: No Known Allergies PAST [...] mg by mouth every 12 hours ??? ibuprofen (MOTRIN) 800 MG tablet TK 1 T PO Q 6 TO 8 H WF PRN FAMILY HISTORY: Family History Problem Relation Name Age of Onset ??? Cancer - Ovarian Mother ??? Cancer - Prostate Maternal Uncle ocbar ??? Cancer - Liver Maternal Uncle hasan Sister and mother positive for BRCA2 mutation. SOCIAL HISTORY: Social History Tobacco Use ??? Smoking status: Current Some Day Smoker ??? Smokeless tobacco: Never Used Substance Use Topics ??? Alcohol use: Yes Comment: rare ??? Drug use: Never GYNECOLOGIC HISTORY: Menarche at age 14 years with first delivery at age 21 years History of ? - yes, breastfed all children for 2 years and is still her kids History of OCP use? - uses mirena (no OCP) History of HRT use? - no REVIEW OF SYSTEMS See HPI PHYSICAL EXAM BP 96/70 Pulse 57 Temp 96.9 ??F (36.1 ??C) Resp 18 Ht 5' 5 (1.651 m) Wt 169 lb (76.7 kg) SpO2 100%BMI 28.12 kg/m2 General: alert, cooperative, in no distress Eyes: conjunctiva and lids normal ENT/Mouth: neck supple, no visible oral lesions Respiratory: unlabored respirations CV: regular heart rate Abd: soft, non-tender, non-distended Musculoskeletal: warm with no deformities On breast exam in both the upright and supine positions, she has symmetrical breasts that are of normal contour and shape. Right upper inner 2cm hyperpigmented area of induration and ulceration consistent with possible sebaceous cyst. No dominant masses in the left breast. No nipple retraction or discharge. No cervical, supraclavicular or axillary lymphadenopathy bilaterally. RADIOLOGY REVIEW: Bilateral diagnostic mammogram and breast ultrasound 04/19/2020 -- small benign sebaceous cysts in the right breast at the 2:00 position (2.1x1.6x0.3cm) and right axilla (1.3x1.9x0.3cm). no evidence ofmalignancy. BIRADS-2 DIAGNOSIS: 34 year old female with a BRCA2 genetic mutation PLAN: -- All pertinent records and reports available to me reviewed and summarized -- She has no concerning findings today on clinical exam. Recommended that she complete the antibiotics for right breast infected sebaceous cyst. -- Bilateral diagnostic mammogram and ultrasound today showed no evidence of malignancy (BIRADS-2) -- We discussed continued high risk screening with twice yearly clinical exams and yearly mammograms and breast MRIs as well as surgical risk reduction. She understands the increased lifetime risk ofup to 60% with a BRCA2 mutation -- She is interested in pursuing prophylactic surgery for maximal risk reduction. She understands that the risk is never zero, but is approximately 90- 95% risk reduction -- She is interested in immediate reconstruction with plastic surgery. Will refer to discuss -- She reports that her verifying specialist has moved. Will refer to Dr. kNechi Ernandez for ovarian cancer screening -- Follows with Dr. Latif () for ulcerative colitis -- OR orders placed for bilateral mastectomies. She will be called with a date and time for surgeryonce she has a consultation with plastic surgery. 35 minutes were spent in review of records, evaluation, treatment, counseling, and documentation. Linda Dueñas MD 04/20/2020 8:47 PM ING MASTER documented in this encounter Plan of Treatment Upcoming Encounters Date Type Department Care Team (Late st Contact Info) Description 04/09/2024 8:00 AM DANCING MASTER Office Visit [facility] - GI [address] [place] [address], Third Level [phone] Gigi Bueno MD [address] [place] [address] [place] [address] 07/01/2024 1:30 PM CDT Office Visit [facility] - GI [address] [facility], Third Level [phone] Milka Soni MD [address] [place] [address] 08/02/2024 9:30 AM CDT Appointment [facility] MRI [address] [place] [address] Linda Dueñas MD [address] [facility] SURGERY DEPARTMENT [address] 08/02/2024 10:30 AM CDT Office Visit [facility] - General Surgery [address] [place] [phone] Linda Dueñas MD [address] [facility] SURGERY DEPARTMENT [address] 02/07/2025 10:30 AM DANCING MASTER Appointment [address] [address] Linda Dueñas MD [address] [facility] SURGERY DEPARTMENT [address] 02/07/2025 11:00 AM DANCING MASTER Office Visit [facility] - General Surgery [address] [place] [phone] Linda Dueñas MD [address] [facility] SURGERY DEPARTMENT [address] documented as of this encounter Visit Diagnoses Diagnosis BRCA2 positive- Primary Genetic susceptibility to malignant neoplasm of breast documented in this encounter Care Teams Pasting Machine Operator Relationship Specialty Start Date End Date Demar Campbell MD [address] [facility] [address] [facility] [address] [place] [phone] PCP - General 08/08/17 documented as of this encounter
--- OUTSIDE RECORDS SUMMARY | 2024-03-19 00:51 | XMS_ITS | Encounter Summary ---
Author Organization [facility] Address [address] [facility] [place] [address] Care Team Providers Care Order Dispatcher Chief Name Role Phone Demar Campbell MD Primary Care Provider [phone] Encounter Details Date Type Department Care Team (Late st Contact Info) Description 06/07/2022 Orders Only [facility] [address] [place] [address], [place] [address] Florinda Montenegro MD [address] [place] [address] [address] [place] [address] Encounter for long-term (current) use [...] st Contact Info) Description 04/09/2024 8:00 AM ENVIRONMENTAL PROTECTION OFFICER Office Visit [facility] GI [address] [place] [phone] Gigi Bueno MD [address] [place] [address] [place] [address] 07/01/2024 1:30 PM CDT [facility] [address] [place] [phone] Milka Soni MD [address] [place] [phone] 08/02/2024 9:30 AM CDT Appointment [address] [phone] Linda Dueñas MD [address] [place] [address] 08/02/2024 10:30 AM CDT Office Visit [facility] - General Surgery [address] [place] [phone] Linda Dueñas MD [address] [place] [address] 02/07/2025 10:30 AM ENVIRONMENTAL PROTECTION OFFICER Appointment [address] [address] Linda Dueñas MD [address] [place] [address] 02/07/2025 11:00 AM ENVIRONMENTAL PROTECTION OFFICER Office Visit [facility] - General Surgery [address] [place] [phone] Linda Dueñas MD [address] [place] [address] documented as of this encounter Visit Diagnoses Diagnosis Encounter for long-term (current) use of high-risk medication Encounter for long-term (current) use of other medications documented in this encounter Care Teams Order Dispatcher Chief Relationship Specialty Start Date End Date Demar Campbell MD [address] [facility] [address] [facility] [address] [place] [address] PCP - General 08/08/17 documented as of this encounter
--- OUTSIDE RECORDS SUMMARY | 2024-03-19 00:51 | XMS_ITS | Encounter Summary ---
Author Organization [facility] Address [address] [facility] [place] [address] Care Team Providers Care Casting And Locker Room Servicer Name Role Phone Demar Campbell MD Primary Care Provider [phone] Reason for Referral * Radiology Services (Routine) - Closed Specialty Diagnoses / Procedures Referred By Contac t Referred To Contact Mammography Diagnoses BRCA2 positive Procedures US BREAST BILATERAL COMPLETE Linda Dueñas MD [address] [place] [address] [facility] Op [address] [place] [address] Referral ID Status Reason Start Date Expiration Date Visits Re quested Visits Authorized [id number] Closed 04/04/2020 04/04/2021 1 1 INTERN Encounter Details Date Type Department Care Team (Late st Contact Info) Description 04/04/2020 Orders Only [facility] General Surgery [address] [place], [place] [phone] Pretty Ribera RN BRCA2 positive Social History Tobacco Use Types Packs/Day [...] st Contact Info) Description 04/09/2024 8:00 AM GRAD INTERN Office Visit [facility] - GI [address] [place] [phone] Gigi Bueno MD [address] [place] [address] [place] [address] 07/01/2024 1:30 PM CDT Office Visit [facility] - GI [address] [place] [phone] Milka Soni MD [address] [place] [phone] 08/02/2024 9:30 AM CDT Appointment [address] [phone] Linda Dueñas MD [address] [facility] SURGERY [place] [address] 08/02/2024 10:30 AM CDT Office Visit [facility] - General Surgery [address] [place] [phone] Linda Dueñas MD [address] SURGERY [place] [address] 02/07/2025 10:30 AM GRAD INTERN Appointment [address] [address] Linda Dueñas MD [address] [facility] SURGERY [place] [address] 02/07/2025 11:00 AM GRAD INTERN Office Visit [facility] - General Surgery [address] [place] [phone] Linda Dueñas MD [address] [facility] SURGERY [place] [address] documented as of this encounter Results * US BREAST BILATERAL COMPLETE (04/20/2020 12:12 PM GRAD INTERN) Anatomical Region Laterality Modality Breast Bilateral Mammography 04/20/2020 12:1 3 PM GRAD INTERN Impressions 04/20/2020 5:06 PM GRAD INTERN IMPRESSION: No bilateral diagnostic mammographic or bilateral [...] 5:06 PM . Narrative 04/20/2020 5:06 PM GRAD INTERN EXAM: ??MAMMO BILAT DIAGNOSTIC WITH 3D AND [...] enlarged axillary lymph nodes. Linda Dueñas MD ORDERABLES documented in this encounter Visit Diagnoses Diagnosis BRCA2 positive- Primary Genetic susceptibility to malignant neoplasm of breast BRCA2 positive Genetic susceptibility to malignant neoplasm of breast documented in this encounter Care Teams Casting And Locker Room Servicer Relationship Specialty Start Date End Date Demar Campbell MD [address] [place] [phone] PCP - General 08/08/17 documented as of this encounter
--- OUTSIDE RECORDS SUMMARY | 2024-03-19 00:51 | XMS_ITS | Encounter Summary ---
Author Organization [facility] Address [address] [place] [address] Care Team Providers Care Shoe Stamper Name Role Phone Demar Campbell MD Primary Care Provider [phone] Reason for Referral * Radiology Services (Routine) - Closed Specialty Diagnoses / Procedures Referred By Contac t Referred To Contact Mammography Diagnoses BRCA gene positive Procedures MAMMO BILAT SCREENING W Linda Franklin MD [address] [place] [address] [facility] Breast [place] Op [address] [place] [address] Referral ID Status Reason Start Date Expiration Date Visits Re quested Visits Authorized [id number] Closed 10/17/2021 10/17/2022 1 1 Reason for Visit * Radiology Services (Routine) - Closed Specialty Diagnoses / Procedures Referred By Contac t Referred To Contact Mammography Diagnoses BRCA gene positive Procedures MAMMO BILAT SCREENING W Linda Franklin MD [address] [place] [address] [facility] Breast Center Op [address] [place] [address] Referral ID Status Reason Start Date Expiration Date Visits Re quested Visits Authorized [id number] Closed 10/17/2021 10/17/2022 1 1 Encounter Details Date Type Department Care Team (Latest Contact Info) Description 11/15/2021 9:56 AM CDT - 11/15/2021 10:32 AM CDT Hospital Encounter [facility] [address] [place] [address] Linda Dueñas MD [address] [place] [address] Discharge Disposition: Home or Self Care Social [...] Reasons: Common Acne 60 tablet 3 10/02/2021 cephalexin (KEFLEX) 500 MG capsule Take 500 [...] st Contact Info) Description 04/09/2024 8:00 AM HARDWOOD FLOORING SPECIALIST Office Visit [facility] - GI [address] [place] [phone] Gigi Bueno MD [address] [place] [address] [place] [address] 07/01/2024 1:30 PM CDT Office Visit [facility] - [address] [phone] Milka Soni MD [address] [place] [phone] 08/02/2024 9:30 AM CDT Appointment [address] [phone] Linda Dueñas MD [address] [facility] [place] [address] 08/02/2024 10:30 AM CDT Office Visit [facility] - General Surgery [address] [place] [phone] Linda Dueñas MD [address] [facility] [place] [address] 02/07/2025 10:30 AM HARDWOOD FLOORING SPECIALIST Appointment [address] [address] Linda Dueñas MD [address] [facility] [place] [address] 02/07/2025 11:00 AM HARDWOOD FLOORING SPECIALIST Office Visit [facility] Physician [facility] Surgery [address] [place] [phone] Linda Dueñas MD [address] [facility] [place] [address] documented as of this encounter Procedures Procedure Name Priority Date/Time Associated Diagnosis Comments MAMMO BILAT SCREENING W CLEMENTE Routine 11/15/2021 10:22 AM CDT BRCA gene positive documented in [...] breast documented in this encounter Care Teams Shoe Stamper Relationship Specialty Start Date End Date Demar Campbell MD [address] [place] [address] PCP - General 08/08/17 documented as of this encounter
--- OUTSIDE RECORDS SUMMARY | 2024-03-19 00:51 | XMS_ITS | Encounter Summary ---
Author Organization [facility] Address [address] [facility] [place] [address] Care Team Providers Care Seed Mill Superintendent Name Role Phone Demar Campbell MD Primary Care Provider [phone] Reason for Referral * Radiology Services (Routine) - Closed Specialty Diagnoses / Procedures Referred By Contac t Referred To Contact Mammography Diagnoses BRCA gene positive Procedures MAMMO BILAT SCREENING W Linda Franklin MD [address] [place] [address] [facility] Op [address] [place] [address] Referral ID Status Reason Start Date Expiration Date Visits Re quested Visits Authorized [id number] Closed 07/29/2022 07/29/2023 1 1 Reason for Visit * Reason Comments Follow-up Follow up BRCA2 gene tic mutation Encounter Details Date Type Department Care Team (Late st Contact Info) Description 07/29/2022 9:30 AM CDT Office Visit [facility] - General Surgery [address] [place] [address] Linda Dueñas MD [address] [place] [address] BRCA gene positive (Primary Dx) Social History Tobacco Use [...] AM CDT documented as of this encounter Last Filed Vital Signs Vital Sign Reading Time Taken Comments Blood Pressure 96/69 07/29/2022 9:22 AM CDT Pulse 60 07/29/2022 9:22 AM CDT Temperature 36.6 ??C (97.8 ??F) 07/29/2022 9:22 AM CD T Respiratory Rate - - Oxygen Saturation 100% 07/29/2022 9:22 AM CDT Inhaled Oxygen Concentration - - Weight 77.1 kg (170 lb) 07/29/2022 9:22 AM CDT Height 165.1 cm (5' 5 ) 07/29/2022 9:22 AM CDT Body Mass Index 28.29 07/29/2022 9:22 AM CDT documented in this encounter Functional [...] No 12/29/2018 documented as of this encounter Progress Notes * Linda Dueñas MD - 07/29/2022 9:30 AM CDT Patient Name: Tessy Medina : 1985 Chief Complaint Patient presents with ??? Follow-up Follow up BRCA2 genetic mutation HISTORY OF PRESENT ILLNESS: Tessy Medina is a 37 year old female with a BRCA2 genetic mutation and ulcerative colitis who presents for follow up. Her last visit was 11/15/2021.. Following last visit, she saw Dr. Birmingham to discuss breast reconstruction -- it was recommended thatshe undergo a reduction/pexy prior to considered NSM. She would also have to stop all nicotine products. At that time, she was opposed to reducing the size of her breasts. Today she has no new breastmasses, nipple discharge, or skin changes. She isn't ready to pursue surgery right now. She said her home life isn't stable enough -- she assures me that she and her kids are safe. She is seeing a counselor and doesn't need any resources right now. She also had a UC flare and is on mesalamine, doing better. She also has been following with her television news anchor for a new ovarian cyst -- she has follow up in3 months. She still follows with dermatology and is using topical clindamycin for HS. She presents today for clinical exam, breast MRI, and high risk surveillance visit. ALLERGIES: No Known Allergies PAST MEDICAL HISTORY: Past Medical History: Diagnosis Date ??? BRCA2 positive ??? Ulcerative colitis (CMS/HCC) PAST SURGICAL HISTORY: Past Surgical History: Procedure Laterality Date ??? Section 2017 ??? COLONOSCOPY N/A 12/29/2018 N/A; COLONOSCOPY DIAGNOSTIC ??? ENDOSCOPY, UPPER N/A 12/29/2018 N/A; ESOPHAGOGASTRODUODENOSCOPY (EGD) DIAGNOSTIC MEDICATIONS: Current Outpatient Medications Medication Sig Dispense Refill ??? cephalexin (KEFLEX) 500 MG capsule Take 500 mg by mouth every 12 hours (Patient not taking: Reported on 08/22/2021) ??? clindamycin (CLEOCIN) 1 % lotion Apply to affected areas of HS/body acne twice daily when present. (Patient not taking: Reported on 07/29/2022) 60 mL 11 ??? cyclobenzaprine (FLEXERIL) 5 MG tablet Take 5 mg by mouth 3 times daily as needed FOR MUSCLE SPASM (Patient not taking: Reported on 08/22/2021) ??? doxycycline hyclate (VIBRAMYCIN) 100 MG tablet Take 1 pill twice daily with food. Reasons: Common Acne (Patient not taking: Reported on 01/02/2022) 60 tablet 3 ??? HYDROcodone-acetaminophen (NORCO) 5-325 MG tablet Take 1 (one) tablet by mouth every 6 hours asneeded pain ??? ibuprofen (MOTRIN) 800 MG tablet TK 1 T PO Q 6 TO 8 H WF PRN (Patient not taking: Reported on 08/22/2021) ??? levonorgestrel (Mirena, 52 MG,) 20 MCG/DAY IUD Mirena 20 mcg/24 hours (7 yrs) 52 mg intrauterine device Take by intrauterine route. (Patient not taking: Reported on 07/29/2022) ??? oxyCODONE-acetaminophen (PERCOCET) 5-325 MG tablet Take 1 tablet by mouth every 6 hours as needed (Patient not taking: Reported on 08/22/2021) ??? spironolactone (Aldactone) 100 MG tablet Take 1 (one) tablet by mouth once daily (Patient not taking: Reported on 07/29/2022) ??? tretinoin (Retin-A) 0.025 % cream APPLY TOPICALLY TO THE AFFECTED AREA EVERY DAY (Patient not taking: Reported on 07/29/2022) ??? tretinoin (RETIN-A) 0.025 % cream Pea sized [...] Social History Tobacco Use ??? Smoking status: Some Days ??? Smokeless tobacco: Never Vaping Use ??? Vaping status: Never Used Substance Use Topics ??? Alcohol [...] PHYSICAL EXAM (unchanged except as noted) BP 96/69 (BP SITE: LEFT ARM) Pulse 60 Temp 97.8 ??F (36.6 ??C) (Temporal) Ht 1.651 m (5' 5 ) Wt 77.1 kg (170 lb) SpO2 100% General: alert, cooperative, in no distress Eyes: [...] or axillary lymphadenopathy bilaterally. RADIOLOGY REVIEW: Bilateral breast MRI 07/29/2022 -- no suspicious enhancement or evidence of malignancy; no enlarged axillary LNs. BIRADS-1 DIAGNOSIS: 37 year old female with a BRCA2 genetic mutation conferring an approximately 60-80% lifetime risk of breast cancer. PLAN: -- All pertinent records and reports available to me reviewed and summarized -- She has no concerning findings today on clinical exam. -- Breast MRI performed today reviewed and showed no suspicious areas of enhancement (BIRADS-1) -- She would like to continue high risk screening with twice yearly clinical exams and yearly mammograms and breast MRIs for now. She is not at a place where she can pursue surgery right now as she has minimal support -- Discussed risk reducing surgery. When she decides to have surgery, she wants to keep her nipples. She saw Dr. Schrader and Dr. Birmingham. Dr Birmingham recommended a reduction/lift with staged nipple sparingmastectomy. -- Needs follow up with break out man/onc for ovarian cancer screening. Follows with her supervisor garage in [place] and she had a new ovarian cyst. She has scheduled 3 month follow up -- Follows with Dr. Latif (GI) for ulcerative colitis -- Follows with dermatology for HS. Currently controlled with no breast lesions. She says she has adraining area on the left hip -- She said she and her family are safe at home and she does not require additional resources at this time -- Return to clinic in 6 months for clinical exam and mammogram or sooner with any changes, questions, or concerns. 35 minutes were spent in review of records, evaluation, treatment, counseling, and documentation. Linda Dueñas MD 07/29/2022 7:54 PM documented in this encounter Plan of Treatment Upcoming Encounters Date Type Department Care Team (Late st Contact Info) Description 04/09/2024 8:00 AM BELT CUTTER Office Visit [facility] - GI [address] [place] [address], [place] [address] Gigi Bueno MD [address] [place] [address] [place] [address] 07/01/2024 1:30 PM CDT Office Visit [facility] - GI [address] [place] [phone] Milka Soni MD [address] [place] [phone] 08/02/2024 9:30 AM CDT Appointment [address] [phone] Linda Dueñas MD [address] [place] [address] 08/02/2024 10:30 AM CDT Office Visit [facility] - General Surgery [address] [place] [phone] Linda Dueñas MD [address] [place] [address] 02/07/2025 10:30 AM BELT CUTTER Appointment [address] [address] Linda Dueñas MD [address] [place] [address] 02/07/2025 11:00 AM BELT CUTTER Office Visit [facility] - General Surgery [address] [place] [phone] Linda Dueñas MD [address] [facility] [place] [address] documented as of this encounter Results * MAMMO BILAT SCREENING W CLEMENTE (01/27/2023 11:44 AM BELT CUTTER) Anatomical Region Laterality Modality Breast Bilateral Mammography 01/27/2023 11:2 8 AM BELT CUTTER Impressions 01/27/2023 11:42 AM BELT CUTTER : ??No mammographic evidence of malignancy. Extremely [...] 01/27/2023 11:42 AM Narrative 01/27/2023 11:42 AM BELT CUTTER EXAMINATIONS: ??BILATERAL DIGITAL SCREENING MAMMOGRAM AND BILATERAL BREAST TOMOSYNTHESIS WITH CAD LOCATION: [facility] EXAM DATE: ??01/27/2023 HISTORY: ??Screening.Patient has history [...] breast documented in this encounter Care Teams Seed Mill Superintendent Relationship Specialty Start Date End Date Demar Campbell MD [address] [facility] [address] [phone] PCP - General 08/08/17 documented as of this encounter
--- OUTSIDE RECORDS SUMMARY | 2024-03-19 00:51 | XMS_ITS | Encounter Summary ---
Author Organization [facility] Address [address] [facility] [place] [address] Care Team Providers Care Wire Rigger Name Role Phone Demar Campbell MD Primary Care Provider [phone] Encounter Details Date Type Department Care Team (Latest Contact Info) Description 01/27/2023 Travel Social History Tobacco Use Types Packs/Day [...] st Contact Info) Description 04/09/2024 8:00 AM GIS DEVELOPER [place] [facility] [place] [address] [place] [address], [place] [address] Gigi Bueno MD [address] [place] [address] [place] [address] 07/01/2024 1:30 PM CDT Office Visit [facility] - GI [address] [facility], [place] [address] Milka Soni MD [address] [place] [address] 08/02/2024 9:30 AM CDT Appointment [facility] MRI [address] [place] [phone] Linda Dueñas MD [address] [facility] [place] [address] 08/02/2024 10:30 AM CDT Office Visit [facility] - General Surgery [address] [place] [phone] Linda Dueñas MD [address] [facility] [place] [address] 02/07/2025 10:30 AM GIS DEVELOPER Appointment [address] [address] Linda Dueñas MD [address] [facility] [place] [address] 02/07/2025 11:00 AM GIS DEVELOPER Office Visit [facility] - General Surgery [address] [place] [phone] Linda Dueñas MD [address] [facility] [place] [address] documented as of this encounter Visit Diagnoses Not on filedocumented in this encounter Care Teams Wire Rigger Relationship Specialty Start Date End Date Demar Campbell MD [address] [phone] PCP - General 08/08/17 documented as of this encounter
--- OUTSIDE RECORDS SUMMARY | 2024-03-19 00:51 | XMS_ITS | Encounter Summary ---
Author Organization [facility] Address [address] [facility] [place] [address] Care Team Providers Care Cloth Shrinker Name Role Phone Demar Campbell MD Primary Care Provider [phone] Reason for Visit * Reason Onset Date Comments Follow-up 12/23/2023 Encounter Details Date Type Department Care Team (Late st Contact Info) Description 12/23/2023 Telephone [facility] ENDOSCOPY [address] [place] [phone] Sofy Galvan Follow-up Social History Tobacco Use Types Packs/Day Years [...] encounter Miscellaneous Notes * Telephone Encounter - Sofy Galvan - 12/23/2023 9:09 AM CDT Images from the original note were not included. Advanced GI referral received sent for review Scheduling pending Mathew Ferrer RN Warren, Amanda J; Stephani Espana; Ann Turner - Patient needs to see General GI for consult for ulcerative pancolitis. Anitha / Deya - please schedule with General GI for consult. Referral recs in media. documented in this encounter Plan of Treatment Upcoming Encounters Date Type Department Care Team (Late st Contact Info) Description 04/09/2024 8:00 AM SYSTEMS INTEGRATION ADVISOR Office Visit [facility] - GI [address] [place] [phone] Gigi Bueno MD [address] [place] [address] [place] [address] 07/01/2024 1:30 PM CDT Office Visit [facility] - GI [address] [place] [phone] Milka Soni MD [address] [place] [phone] 08/02/2024 9:30 AM CDT Appointment [facility] [address] [place] [phone] Linda Dueñas MD [address] [place] [address] 08/02/2024 10:30 AM CDT Office Visit [facility] - General Surgery [address] [place] [phone] Linda Dueñas MD [address] [place] [address] 02/07/2025 10:30 AM SYSTEMS INTEGRATION ADVISOR Appointment [address] [address] Linda Dueñas MD [address] [place] [address] 02/07/2025 11:00 AM SYSTEMS INTEGRATION ADVISOR Office Visit [facility] - General Surgery [address] [place] [phone] Linda Dueñas MD [address] [facility] [place] [address] documented as of this encounter Visit Diagnoses Not on filedocumented in this encounter Care Teams Cloth Shrinker Relationship Specialty Start Date End Date Demar Campbell MD [address] [facility] [address] [facility] 20 [place] [phone] PCP - General 08/08/17 documented as of this encounter
--- OUTSIDE RECORDS SUMMARY | 2024-03-19 00:51 | XMS_ITS | Encounter Summary ---
Author Organization [facility] Address [address] [facility] [place] [address] Care Team Providers Care Veterinary Radiologist Name Role Phone Demar Campbell MD Primary Care Provider [phone] Encounter Details Date Type Department Care Team (Latest Contact Info) Description 07/29/2022 Travel Social History Tobacco Use Types Packs/Day [...] st Contact Info) Description 04/09/2024 8:00 AM MULTIPLE GAMES DEALER Office Visit [facility] - GI [address] [facility], [place] [phone] Gigi Bueno MD [address] [place] [address] [place] [address] 07/01/2024 1:30 PM CDT Office Visit [facility] - GI [address] [place] [address], [place] [phone] Milka Soni MD [address] [place] [phone] 08/02/2024 9:30 AM CDT Appointment [address] [phone] Linda Dueñas MD [address] [facility] [place] [address] 08/02/2024 10:30 AM CDT Office Visit [facility] - General Surgery [address] [place] [phone] Linda Dueñas MD [address] [facility] [address] 02/07/2025 10:30 AM MULTIPLE GAMES DEALER Appointment [address] [address] Linda Dueñas MD [address] [facility] [address] 02/07/2025 11:00 AM MULTIPLE GAMES DEALER Office Visit [facility] - General Surgery [address] [place] [phone] Linda Dueñas MD [address] [facility] [address] documented as of this encounter Visit Diagnoses Not on filedocumented in this encounter Care Teams Veterinary Radiologist Relationship Specialty Start Date End Date Demar Campbell MD [address] [facility] [address] [facility] 20 [place] [address] PCP - General 08/08/17 documented as of this encounter
--- OUTSIDE RECORDS SUMMARY | 2024-03-19 00:51 | XMS_ITS | Encounter Summary ---
Author Organization [facility] Address [address] [facility] [place] [address] Care Team Providers Care Computational Biologist Name Role Phone Demar Campbell MD Primary Care Provider Encounter Details Date Type Department Care Team (Latest Contact Info) Description 04/05/2020 Travel Social History Tobacco Use Types Packs/Day [...] COVID-19? Unable to assess 04/05/2020 11:47 AM HEAD OF MAINTENANCE documented as of this encounter Functional Status [...] st Contact Info) Description 04/09/2024 8:00 AM HEAD OF MAINTENANCE Office Visit [facility] - GI [address] [facility], [place] [phone] Gigi Bueno MD [address] [place] [address] [place] [address] 07/01/2024 1:30 PM CDT Office Visit [facility] - GI [address] [place] [phone] [place] [address] [place] [phone] 08/02/2024 9:30 AM CDT Appointment [facility] [address] [place] [phone] Linda Dueñas MD [address] [facility] [place] [address] 08/02/2024 10:30 AM CDT Office Visit [facility] - General Surgery [address] [place] [phone] Linda Dueñas MD [address] [facility] [place] [address] 02/07/2025 10:30 AM HEAD OF MAINTENANCE Appointment [address] [address] Linda Dueñas MD [address] [facility] [place] [address] 02/07/2025 11:00 AM HEAD OF MAINTENANCE Office Visit [facility] - General Surgery [address] [place] [phone] Linda Dueñas MD [address] [facility] [place] [address] documented as of this encounter Visit Diagnoses Not on filedocumented in this encounter Care Teams Computational Biologist Relationship Specialty Start Date End Date Demar Campbell MD [address] [place] [phone] PCP - General 08/08/17 documented as of this encounter
--- OUTSIDE RECORDS SUMMARY | 2024-03-19 00:51 | XMS_ITS | Encounter Summary ---
Author Organization [facility] Address [address] [facility] [address] Care Team Providers Care Church History Professor Name Role Phone Demar Campbell MD Primary Care Provider [phone] Reason for Referral * Radiology Services (Routine) - Closed Specialty Diagnoses / Procedures Referred By Contac t Referred To Contact Mammography Diagnoses BRCA2 positive Procedures US BREAST BILATERAL COMPLETE Linda Dueñas MD [address] [place] [address] [facility] Breast [place] [address] [place] [address] Referral ID Status Reason Start Date Expiration Date Visits Re quested Visits Authorized [id number] Closed 04/04/2020 04/04/2021 1 1 NAVIGATOR Reason for Visit * Radiology Services (Routine) - Closed Specialty Diagnoses / Procedures Referred By Contac t Referred To Contact Mammography Diagnoses BRCA2 positive Procedures US BREAST BILATERAL COMPLETE Linda Dueñas MD [address] [place] [phone] [facility] [address] [place] [address] Referral ID Status Reason Start Date Expiration Date Visits Re quested Visits Authorized [id number] Closed 04/04/2020 04/04/2021 1 1 Encounter Details Date Type Department Care Team (Latest Contact Info) Description 04/20/2020 10:00 AM CARE NAVIGATOR - 04/20/2020 10:21 AM CARE NAVIGATOR Hospital Encounter [facility] [address] [place] [address] Linda Dueñas MD [address] [facility] [place] [address] Discharge Disposition: Home or Self [...] COVID-19? Unable to assess 04/05/2020 11:47 AM CARE NAVIGATOR documented as of this encounter Functional Status [...] st Contact Info) Description 04/09/2024 8:00 AM CARE NAVIGATOR Office Visit [facility] - [address] [place] [phone] Gigi Bueno MD [address] [place] [address] [place] [address] 07/01/2024 1:30 PM CDT Office Visit [facility] - GI [address] [place] [address], [place] [phone] [place] [address] [place] [phone] 08/02/2024 9:30 AM CDT Appointment [facility] MRI [address] [place] [phone] Linda Dueñas MD [address] [facility] [place] [address] 08/02/2024 10:30 AM CDT Office Visit [facility] - General Surgery [address] [place] [phone] Linda Dueñas MD [address] [facility] [place] [address] 02/07/2025 10:30 AM CARE NAVIGATOR Appointment [address] [address] Linda Dueñas MD [address] [facility] [place] [address] 02/07/2025 11:00 AM CARE NAVIGATOR Office Visit [facility] - General Surgery [address] [place] [phone] Linda Dueñas MD [address] [facility] [place] [address] documented as of this encounter Procedures Procedure Name Priority Date/Time Associated Diagnosis Comments US BREAST BILATERAL COMPLETE Routine 04/20/2020 12:12 PM CARE NAVIGATOR BRCA2 positive documented in this encounter Results * US BREAST BILATERAL COMPLETE (04/20/2020 12:12 PM CARE NAVIGATOR) Anatomical Region Laterality Modality Breast Bilateral Mammography 04/20/2020 12:1 3 PM CARE NAVIGATOR Impressions 04/20/2020 5:06 PM CARE NAVIGATOR IMPRESSION: No bilateral diagnostic mammographic or bilateral [...] 5:06 PM . Narrative 04/20/2020 5:06 PM CARE NAVIGATOR EXAM: ??MAMMO BILAT DIAGNOSTIC WITH 3D AND [...] breast documented in this encounter Care Teams Church History Professor Relationship Specialty Start Date End Date Demar Campbell MD [address] [facility] [address] [place] [phone] PCP - General 08/08/17 documented as of this encounter
--- OUTSIDE RECORDS SUMMARY | 2024-03-19 00:51 | XMS_ITS | Encounter Summary ---
Author Organization [facility] Address [address] [facility] [place] [address] Care Team Providers Care Custom Seamstress Name Role Phone Demar Campbell MD Primary Care Provider [phone] Reason for Referral * Radiology Services (Routine) - Closed Specialty Diagnoses / Procedures Referred By Contac t Referred To Contact Mammography Diagnoses BRCA gene positive Procedures MAMMO BILAT SCREENING W Linda Franklin MD [address] [facility] [place] [address] [facility] [address] [place] [address] Referral ID Status Reason Start Date Expiration Date Visits Re quested Visits Authorized [id number] Closed 08/05/2023 08/04/2024 1 1 Reason for Visit * Reason Onset Date Comments Results 08/05/2023 Encounter Details Date Type Department Care Team (Late st Contact Info) Description 08/05/2023 Telephone [facility] - General Surgery [address] [place] [phone] Pretty Ribera, RN Results Social History Tobacco Use Types Packs/Day Years [...] encounter Miscellaneous Notes * Telephone Encounter - Pretty Ribera RN - 08/05/2023 11:26 AM CDT Call to pt with negative breast MRI results. She will follow up with Dr. Dueñas in 6 months with abilateral screening mammogram. documented in this encounter Plan of Treatment Upcoming Encounters Date Type Department Care Team (Late st Contact Info) Description 04/09/2024 8:00 AM FILAMENT TESTER Office Visit [facility] - GI [address] [place] [phone] Gigi Bueno MD [address] [place] [address] [place] [address] 07/01/2024 1:30 PM CDT Office Visit [facility] - GI [address] [place] [phone] Milka Soni MD [facility] [place] [phone] 08/02/2024 9:30 AM CDT Appointment [address] [phone] Linda Dueñas MD [address] [facility] [place] [address] 08/02/2024 10:30 AM CDT Office Visit [facility] - General Surgery [address] [place] [phone] Linda Dueñas MD [address] [facility] [place] [address] 02/07/2025 10:30 AM FILAMENT TESTER Appointment [address] [address] Linda Dueñas MD [address] [facility] [place] [address] 02/07/2025 11:00 AM FILAMENT TESTER Office Visit [facility]ician [facility] General Surgery [address] [place] [phone] Linda Dueñas MD [address] [facility] [place] [address] documented as of this encounter Results * MAMMO BILAT SCREENING W CLEMENTE (02/09/2024 10:58 AM FILAMENT TESTER) Anatomical Region Laterality Modality Breast Bilateral Mammography 02/09/2024 10:5 8 AM FILAMENT TESTER Impressions 02/09/2024 11:02 AM FILAMENT TESTER IMPRESSION: ??No mammographic evidence of malignancy. Extremely dense breast parenchyma. RECOMMENDATION: 1. Screening mammography in one year, pending no interval breast concerns. 2. Annual screening breast MRI is recommended, given the history of a BRCA2 gene mutation, according to the [place] [employer] guidelines. Her next exam is [...] 02/09/2024 11:02 AM Narrative 02/09/2024 11:02 AM FILAMENT TESTER EXAMINATIONS: ??BILATERAL DIGITAL SCREENING MAMMOGRAM AND BILATERAL BREAST TOMOSYNTHESIS LOCATION: [facility] EXAM DATE: ??02/09/2024 HISTORY: ??Screening. Patient has [...] breast documented in this encounter Care Teams Custom Seamstress Relationship Specialty Start Date End Date Demar Campbell MD [address] [facility] [address] [place] [phone] PCP - General 08/08/17 documented as of this encounter
--- OUTSIDE RECORDS SUMMARY | 2024-03-19 00:51 | XMS_ITS | Encounter Summary ---
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 Ratio 1.2 1.1 - 2.3 03/01/2024 5:37 PM [facility] eGFR by CKD-EPI >90 >=90 mL/min/1.7 3 m2 03/01/2024 5:37 PM [facility] Blood BLOOD SPECIMEN / Unknown Lab Venipuncture / Unknown 03/01/2024 4:29 PM LIGHT BULB ASSEMBLER 03/01/2024 5:04 PM [facility] Mariel Short MULTIPLE GAMES DEALER-PHOTOGRAPHY SPOTTER LAB - CH EMISTRY ORDERABLES [facility] [address] [place] [address], [facility] [phone] * (ABNORMAL) CBC W/ DIFFERENTIAL (03/01/2024 4:29 PM [facility]) WBC 8.7 4.0 - 10.7 x10E9/L 03/01/2024 6:04 PM [facility] RBC Count 4.82 3.90 - 5.20 x10E12/L 03/01/2024 6:04 PM [facility] Hemoglobin 10.8(L) 11.9 - 15.8 g/dL 03/01/2024 6:04 PM [facility] Hematocrit 33.7(L) 34.8 - 46.1 % 03/01/2024 6:04 PM [facility] MCV 69.9(L) 80.0 - 98.0 fL 03/01/2024 6:04 PM [facility] MCH 22.4(L) 26.7 - 33.6 pg 03/01/2024 6:04 PM [facility] MCHC 32.0 31.7 - 36.3 g/dL 03/01/2024 6:04 PM [facility] RDW-CV 18.7(H) 11.3 - 14.8 % 03/01/2024 6:04 PM [facility] Platelet Count 205 150 - 420 x10E9/L 03/01/2024 6:04 PM [facility] Neutrophil % 55.9 41.0 - 74.0 % 03/01/2024 6:04 PM [facility] Lymphocyte % 34.4 17.0 - 47.0 % 03/01/2024 6:04 PM [facility] Monocyte % 7.2 3.0 - 11.0 % 03/01/2024 6:04 PM [facility] Eosinophil % 1.6 0.0 - 7.0 % 03/01/2024 6:04 PM [facility] Basophil % 0.6 0.0 - 1.6 % 03/01/2024 6:04 PM [facility] Immature Granulocytes % 0.3 0.0 - 1.0 % 03/01/2024 6:04 PM [facility] Neutrophil Absolute 4.87 1.60 - 7.50 x10E9/L 03/01/2024 6:04 PM [facility] Lymphocyte Absolute 3.00 1.00 - 4.40 x10E9/L 03/01/2024 6:04 PM [facility] Monocyte Absolute 0.63 0.15 - 1.00 x10E9/L 03/01/2024 6:04 PM [facility] Eosinophil Absolute 0.14 0.00 - 0.60 x10E9/L 03/01/2024 6:04 PM [facility] Basophil Absolute 0.05 0.00 - 0.13 x10E9/L 03/01/2024 6:04 PM [facility] Blood BLOOD SPECIMEN / Unknown Lab Venipuncture / Unknown 03/01/2024 4:29 PM LIGHT BULB ASSEMBLER 03/01/2024 5:04 PM LIGHT BULB ASSEMBLER Mariel Short APRNKAMILLA LAB - HE MATOLOGY ORDERABLES [address] [address] [phone] * HEPATITIS C ANTIBODY (03/01/2024 4:29 PM LIGHT BULB ASSEMBLER) Hepatitis C Antibody Non-react clif Non-reac tive 03/01/2024 5:52 PM [facility] Comment:Hepatitis C Antibody screen indicates no serologic evidence of past or current infection with Hepatitis C Virus. Patients with unexplained liver disease who are immunocompromised or suspected of having acute Hepatitis C infection may benefit from Nucleic Acid Test (JULIA) for Hepatitis C Viral RNA to confirm Hepatitis C status. Blood BLOOD SPECIMEN / Unknown Lab Venipuncture / Unknown 03/01/2024 4:29 PM LIGHT BULB ASSEMBLER 03/01/2024 4:57 PM LIGHT BULB ASSEMBLER Mariel Short APRNKAMILL[facility] LAB - CH EMISTRY ORDERABLES [address] [place] [address], [facility] [phone] * HEPATITIS B CORE ANTIBODY TOTAL (03/01/2024 4:29 PM LIGHT BULB ASSEMBLER) HBc Antibody Total Non-reacti ve Non-reacti ve 03/01/2024 5:52 PM LIGHT BULB ASSEMBLER [facility] Blood BLOOD SPECIMEN / Unknown Lab Venipuncture / Unknown 03/01/2024 4:29 PM LIGHT BULB ASSEMBLER 03/01/2024 4:57 PM LIGHT BULB ASSEMBLER Mariel Short MULTIPLE GAMES DEALER-PHOTOGRAPHY SPOTTER LAB - CH EMISTRY ORDERABLES Performing Organization Address [facility] Phone Number [facility] [address] [place] [address], [facility] [phone] * (ABNORMAL) HEPATITIS B SURFACE ANTIBODY (03/01/2024 4:29 PM LIGHT BULB ASSEMBLER) [facility] Hepatitis B Virus Surface Antibody Reactive( A) Non-react clif 03/01/2024 5:52 PM LIGHT BULB ASSEMBLER [facility] Comment: > 12 mIU/mL Hepatitis B surface Antibody (HBsAb). Reactive for HBsAb - individual is considered immune to Hepatitis B Virus infection. Hepatitis B Surface Antibody Quantitative 101.7(H) <8.0 mIU/mL 03/01/2024 5:52 PM LIGHT BULB ASSEMBLER [facility] Comment: Hepatitis B Surface Antibody Numeric Result Interpretation: ? Nonreactive: ?<8.0 mIU/mL ? Indeterminate: ??8.0 - 12.0 mIU/mL ? Reactive: ?>12.0 mIU/mL ? Blood BLOOD SPECIMEN / Unknown Lab Venipuncture / Unknown 03/01/2024 4:29 PM LIGHT BULB ASSEMBLER 03/01/2024 4:57 PM LIGHT BULB ASSEMBLER Mariel Short MULTIPLE GAMES DEALER-PHOTOGRAPHY SPOTTER LAB - CH EMISTRY ORDERABLES [facility] [address] [place] [address], [facility] [phone] * HEPATITIS B SURFACE ANTIGEN W RFLX CONFIRMATION (03/01/2024 4:29 PM LIGHT BULB ASSEMBLER) Pathologist [facility] Hepatitis B Virus Surface Antigen Non-reacti ve Non-reacti ve 03/01/2024 5:52 PM LIGHT BULB ASSEMBLER [facility] Blood BLOOD SPECIMEN / Unknown Lab Venipuncture / Unknown 03/01/2024 4:29 PM LIGHT BULB ASSEMBLER 03/01/2024 4:57 PM LIGHT BULB ASSEMBLER Mariel Short MULTIPLE GAMES DEALER-PHOTOGRAPHY SPOTTER LAB - CH EMISTRY ORDERABLES Performing Organization Address [facility]/ZIP Co de Phone Number [address] [address], [facility] [phone] * NERI BLOOD SCREEN W/REFLEX TITER (03/01/2024 4:29 PM LIGHT BULB ASSEMBLER) Pathologist [facility] NERI IgG None Detected None Detected 03/03/2024 7:09 AM LIGHT BULB ASSEMBLER [employer] ([facility]) Comment: If suspicion of connective tissue disease is strong and NERI EIA is negative, consider testing for NERI by IFA ([id number]). INTERPRETIVE INFORMATION: Anti-Nuclear Antibodies (NERI), IgG by OLUISA Antinuclear Antibodies (NERI), IgG by LOUISA: NERI specimens are screened using enzyme-linked immunosorbent assay (LOUISA) methodology. All LOUISA results reported as Detected are further tested by indirect fluorescent assay (IFA) using HEp-2 substrate with an IgG-specific conjugate. The NERI LOUISA screen is designed to detect antibodies against dsDNA, histones, SS-A (Ro), SS-B (La), Diallo, Diallo/PNEUMATIC TOOL OPERATOR, Scl-70, Cora-1, centromeric proteins, other antigens extracted from the HEp-2 cell nucleus. NERI LOUISA assays have been reported to have lower sensitivities than NERI IFA for systemic autoimmune rheumatic diseases (SARD). Negative results do not necessarily rule out SARD. Performed by [facility], [address] [place] [id number] [email or web address] PERL, Junior Linares MD, Lab. Director CLIA Number: [id number] Blood BLOOD SPECIMEN / Unknown Lab Venipuncture / Unknown 03/01/2024 4:29 PM LIGHT BULB ASSEMBLER 03/01/2024 4:57 PM LIGHT BULB ASSEMBLER Mariel CarreroJasperwandysamanta MULTIPLE GAMES DEALER-PHOTOGRAPHY SPOTTER LAB - CH EMISTRY ORDERABLES [employer]) [address] [place] [address], [facility] * QUANTIFERON-TB GOLD PLUS 4-TUBE (03/01/2024 4:29 PM LIGHT BULB ASSEMBLER) [facility] QuantiFERON Mitogen Minus NIL 10.00 IU/mL 03/04/2024 2:04 AM LIGHT BULB ASSEMBLER [facility]) QuantiFERON Nil Value 0.00 IU/mL 03/04/2024 2:04 AM LIGHT BULB ASSEMBLER [facility] [employer] [facility]) QuantiFERON Plus TB1 Minus NIL 0.00 <=0.34 IU/mL 03/04/2024 2:04 AM LIGHT BULB ASSEMBLER [facility] ([facility]) QuantiFERON Plus TB2 Minus NIL 0.00 <=0.34 IU/mL 03/04/2024 2:04 AM LIGHT BULB ASSEMBLER [facility] ([facility]) QuantiFERON-TB Gold Plus Negative Negative 03/04/2024 2:04 AM LIGHT BULB ASSEMBLER [facility] ([facility]) Comment: INTERPRETIVE INFORMATION:Quantiferon TB Gold Plus [...] Mycobacterium tuberculosis Infection -- [place], 2010 (http://www.cdc.gov/mmwr/preview/mmwrhtml/ac3516o8.htm), for more information concerning test performance in low-prevalence populations and use in occupational screening. Performed By: [facility] [address] [place] [address] Customer Resolution Specialist: Dm Mike MD, PhD CLIA Number: [id number] Blood BLOOD SPECIMEN / Unknown Lab Venipuncture / Unknown 03/01/2024 4:29 PM LIGHT BULB ASSEMBLER 03/01/2024 5:10 PM LIGHT BULB ASSEMBLER Mariel BENITEZ LAB - CH EMISTRY ORDERABLES [employer] ([facility]) [address] [place] [address], [facility] * OR LIVER ELASTOGRAPHY (03/01/2024 3:55 PM LIGHT BULB ASSEMBLER) Narrative Eligio Ayala MD - 03/01/2024 3:55 PM LIGHT BULB ASSEMBLER Eligio Ayala MD ? 03/03/2024 ??6:26 [...] patients with nonalcoholic fatty liver disease. Gastroenterology 2019;156:9285-0766. Zeeshan MS, Carmina R, Van Natta ML, [...] at-risk nonalcoholic steatohepatitis (PARADA) in a [place] cohort and comparison to other non-invasive algorithms. PLoS ONE (2021) 17: a0001857. Jazmin AJ, Sara J, Primo ZM, et al. Enhanced diagnosis of advanced fibrosis and cirrhosis in individuals with NAFLD using FibroScan-based Agile scores. J Hepatol (2022) 78: 247-259. Fibroscan LSM can also be used with laboratory parameters without formulas to assess prognosis. According to the Baveno-VII criteria (Cunha, 2021), Fibroscan LSM <=15 kPa plus a platelet count of >=[id number]/L rules out clinically significant portal hypertension (sensitivity and negative predictive value >90%) in patients with compensated advanced chronic liver disease. Rodas, Norman J, Sulema G, Sanjeev T, Douglas Armas on behalf of the Baveno VII Faculty. Baveno VII--Renewing consensus in portal hypertension. J Hepatol (2021) 76: 959-97 Assessing the likelihood of advanced fibrosis in patients with intermediate liver stiffness measurement (LSM) by Fibroscan (e.g., 8-15 kPa) can be improved by also calculating the FIB-4 score (Ashly et al. Hepatology Communications 2019;3:3444-8112) or NAFLD Fibrosis score (Rodgers et al. Clinical Gastroenterology and Hepatology 2019;17:4181-2626 using ??routine clinical data. Note: 1. Fibroscan [...] interpretive data was last updated 07/20/22.) [email or web address] Mariel Short MULTIPLE GAMES DEALER-PHOTOGRAPHY SPOTTER PROCEDUR E/MINOR SURGICAL ORDERABLES documented in this encounter Visit Diagnoses Diagnosis Ulcerative colitis with complication, unspecified location (HCC)- Primary Hepatic fibrosis Cirrhosis of liver without mention of alcohol Intestinal malabsorption, unspecified type (HCC) Therapeutic drug monitoring Encounter for therapeutic drug monitoring Gastroesophageal reflux disease, unspecified whether esophagitis present documented in this encounter Care Teams Environmental Protection Officer Relationship Specialty Start Date End Date Demar Campbell MD [address] [place] [phone] PCP - General 08/08/17 documented as of this encounter
--- OUTSIDE RECORDS SUMMARY | 2024-03-19 00:51 | XMS_ITS | Encounter Summary ---
Author Organization [facility] Address [address] [place] [address] Care Team Providers Care Warehouse Consultant Name Role Phone Demar Campbell MD Primary Care Provider [phone] Reason for Referral * Radiology Services (Routine) - Closed Specialty Diagnoses / Procedures Referred By Contac t Referred To Contact MRI Diagnoses BRCA gene positive Procedures MRI BREAST BILAT SCREENING WWO Linda Dueñas MD [address] [place] [address] [facility] Mri [address] [place] [address] Referral ID Status Reason Start Date Expiration Date Visits Re quested Visits Authorized [id number] Closed 01/27/2023 01/27/2024 1 1 NG ASSISTANT Reason for Visit * Reason Comments Follow-up BRCA2 genetic mutati on Encounter Details Date Type Department Care Team (Late st Contact Info) Description 01/27/2023 10:30 AM ZONING ASSISTANT Office Visit [facility] - General Surgery [address] [place] [phone] Linda Dueñas MD [address] [place] [address] BRCA gene positive (Primary Dx) [...] Sign Reading Time Taken Comments Blood Pressure 104/70 01/27/2023 11:44 AM ZONING ASSISTANT Pulse 66 01/27/2023 11:44 AM ZONING ASSISTANT Temperature 36.1 ??C (97 ??F) 01/27/2023 11:44 AM ZONING ASSISTANT Respiratory Rate - - Oxygen Saturation 98% 01/27/2023 11:44 AM ZONING ASSISTANT Inhaled Oxygen Concentration - - Weight 77.1 kg (170 lb) 01/27/2023 11:44 AM ZONING ASSISTANT Height 165.1 cm (5' 5 ) 01/27/2023 11:44 AM ZONING ASSISTANT Body Mass Index 28.29 01/27/2023 11:44 AM ZONING ASSISTANT documented in this encounter Functional Status Functional [...] * Patient Instructions* Pretty Ribera RN - 01/27/2023 12:28 PM ZONING ASSISTANT Follow up with Dr. Dueñas in 6 months with a breast MRI before visit. NG ASSISTANT documented in this encounter Progress Notes * Linda Dueñas MD - 01/27/2023 10:30 AM CST Patient Name: Tessy Medina : 1985 Chief Complaint Patient presents with ??? Follow-up BRCA2 genetic mutation HISTORY OF PRESENT ILLNESS: Tessy Medina is a 37 year old female with a BRCA2 genetic mutation and ulcerative colitis who presents for follow up. Her last visit was 07/19/2022. Today she has no new breast masses, nipple discharge, or skin changes. She is still not sure that she can have surgery right now, but is trying to work through how she could do this and will need to talk with her . She has seen plastic surgery and will need a reduction mammoplasty to [facility]. She has been seeing her medical claims manager for the ovarian cyst and reports that this is stable.. She presents today for clinical exam, mammogram, [...] twice daily when present. 60 mL 11 ??? cyclobenzaprine (FLEXERIL) 5 MG tablet Take 5 mg by mouth 3 times daily as needed FOR MUSCLE SPASM (Patient not taking: Reported on 08/22/2021) ??? doxycycline hyclate (VIBRAMYCIN) 100 MG tablet Take 1 pill twice daily with food. Reasons: Common Acne 60 tablet 3 ??? HYDROcodone-acetaminophen (NORCO) 5-325 MG tablet Take 1 (one) tablet by mouth every 6 hours asneeded pain ??? ibuprofen (MOTRIN) 800 MG tablet TK 1 T PO Q 6 TO 8 H WF PRN (Patient not taking: Reported on 08/22/2021) ??? levonorgestrel (Mirena, 52 MG,) 20 MCG/DAY IUD ??? oxyCODONE-acetaminophen (PERCOCET) 5-325 MG tablet Take 1 tablet by mouth every 6 hours as needed (Patient not taking: Reported on 08/22/2021) ??? spironolactone (Aldactone) 100 MG tablet Take 1 (one) tablet by mouth once daily ??? tretinoin (Retin-A) 0.025 % cream APPLY [...] Smokeless tobacco: Never Vaping Use ??? Vaping Use: Never used [...] PHYSICAL EXAM (unchanged except as noted) BP 104/70 (BP SITE: LEFT ARM) Pulse 66 Temp 97 ??F (36.1 ??C) (Temporal) Ht 1.651 m (5' 5 ) Wt 77.1 kg (170 lb) SpO2 98% General: alert, cooperative, in no distress Eyes: [...] lymphadenopathy bilaterally. RADIOLOGY REVIEW: Bilateral screening mammogram 01/27/2023 -- no suspicious findings or evidence of malignancy bilaterally. BIRADS-2 DIAGNOSIS: 37 year old female with a BRCA2 genetic mutation conferring an approximately 60-80% lifetime risk of breast cancer. PLAN: -- All pertinent records and reports available to me reviewed and summarized -- She has no concerning findings today on clinical exam. -- Mammogram performed today showed no suspicious findings (BIRADS-2) -- We reviewed risk reducing surgery again today. She previously saw Dr. Schrader and Dr. Birmingham. Dr Birmingham recommended a reduction/lift with staged nipple sparing mastectomy. -- She is more interested in surgery but conflicted as she needs to clear it with her . She would like to continue high risk screening with twice yearly clinical exams and yearly mammograms and breast MRIs for now. -- Follows with her medical claims manager in [place] -- Follows with Dr. Latif (GI) for ulcerative colitis -- Follows with dermatology for HS. -- Return to clinic in 6 months for clinical exam and breast MRI or sooner with any changes, questions, or concerns. Emphasized that she could change her mind and opt for surgery at any time. 35 minutes were spent in review of records, evaluation, treatment, counseling, and documentation. Linda Dueñas MD 01/28/2023 9:58 PM NG ASSISTANT documented in this encounter Plan of Treatment Upcoming Encounters Date Type Department Care Team (Late st Contact Info) Description 04/09/2024 8:00 AM ZONING ASSISTANT Office Visit [facility] - GI [address] [place] [phone] Gigi Bueno MD [address] [place] [address] [place] [address] 07/01/2024 1:30 PM CDT Office Visit [facility] - GI [address] [place] [phone] Milka Soni MD [address] [place] [address] 08/02/2024 9:30 AM CDT Appointment [address] [phone] Linda Dueñas MD [address] [facility] [place] [address] 08/02/2024 10:30 AM CDT Office Visit [facility] - General Surgery [address] [place] [phone] Linda Dueñas MD [address] [facility] [place] [address] 02/07/2025 10:30 AM ZONING ASSISTANT Appointment [address] [address] Linda Dueñas MD [address] [facility] [place] [address] 02/07/2025 11:00 AM ZONING ASSISTANT Office Visit [facility] General Surgery [address] [place] [phone] Linda Dueñas MD [address] [facility] [place] [address] documented as of this encounter Results * MRI BREAST BILAT [...] AND WITHOUT CONTRAST WITH DYNACAD ANALYSIS LOCATION: [facility] EXAM DATE: ??08/04/2023 HISTORY: ?Screening. This is [...] compare with outside breast MRI scan from [facility] dated 10/23/2016 and outside breast MRI also from [facility] dated 12/25/2017. CONTRAST: ??14 cc Dotarem IV. [...] lymph nodes. Linda Dueñas MD MR ORDERABLES documented in this encounter Visit Diagnoses Diagnosis BRCA gene positive- Primary Genetic susceptibility to malignant neoplasm of breast BRCA gene positive Genetic susceptibility to malignant neoplasm of breast documented in this encounter Care Teams Warehouse Consultant Relationship Specialty Start Date End Date Demar Campbell MD [address] [facility] [address] [place] [phone] PCP - General 08/08/17 documented as of this encounter
--- OUTSIDE RECORDS SUMMARY | 2024-03-19 00:51 | XMS_ITS | Encounter Summary ---
Author Organization [facility] Address [address] [facility] [place] [address] Care Team Providers Care Lightout Examiner Name Role Phone Demar Campbell MD Primary Care Provider [phone] Encounter Details Date Type Department Care Team (Late st Contact Info) Description 05/10/2022 Orders Only [facility] [address] [place] [address], [place] [address] Florinda Montenegro MD [address] [place] [address] [address] [place] [address] Encounter for long-term (current) use [...] st Contact Info) Description 04/09/2024 8:00 AM DOPE POURER Office Visit [facility] - GI [address] [place] [phone] Gigi Bueno MD [address] [place] [address] [place] [address] 07/01/2024 1:30 PM CDT [facility] [address] [place] [phone] Milka Soni MD [address] [place] [phone] 08/02/2024 9:30 AM CDT Appointment [address] [phone] Linda Dueñas MD [address] [place] [address] 08/02/2024 10:30 AM CDT Office Visit [facility] - General Surgery [address] [place] [phone] Linda Dueñas MD [address] [place] [address] 02/07/2025 10:30 AM DOPE POURER Appointment [address] [address] Linda Dueñas MD [address] [place] [address] 02/07/2025 11:00 AM DOPE POURER Office Visit [facility] - General Surgery [address] [place] [phone] Linda Dueñas MD [address] [place] [address] documented as of this encounter Visit Diagnoses Diagnosis Encounter for long-term (current) use of high-risk medication Encounter for long-term (current) use of other medications documented in this encounter Care Teams Lightout Examiner Relationship Specialty Start Date End Date Demar Campbell MD [address] [facility] [address] [facility] [address] [place] [address] PCP - General 08/08/17 documented as of this encounter
--- OUTSIDE RECORDS SUMMARY | 2024-03-19 00:51 | XMS_ITS | Encounter Summary ---
Author Organization [facility] Address [address] [place] [address] Care Team Providers Care Head Esthetician Name Role Phone Demar Campbell MD Primary Care Provider [phone] Reason for Visit * Reason Comments Results Encounter Details Date Type Department Care Team ([facility] Contact Info) Description 05/28/2019 Telephone [facility] [phone] [place], [place] [id number] Liz Diallo, RN Results Social History Tobacco Use Types [...] encounter Miscellaneous Notes * Telephone Encounter - Liz Diallo RN - 05/28/2019 3:50 PM CDT Attempted to call patient again to discuss her results and to see if she would like to move forwardwith the anorectal manometry. Unable to reach patient, LM on cell phone. documented in this encounter Plan of Treatment Upcoming Encounters Date Type Department Care Team (Late st Contact Info) Description 04/09/2024 8:00 AM HAZARDOUS SUBSTANCES SCIENTIST Office Visit [facility] - GI [address] [place] [phone] Gigi Bueno MD [address] [place] [address] [place] [address] 07/01/2024 1:30 PM CDT Office Visit [facility] - GI [address] [place] [phone] Milka Soni MD [address] [place] [phone] 08/02/2024 9:30 AM CDT Appointment [facility] [address] [place] [phone] Linda Dueñas MD [address] [facility] [place] [address] 08/02/2024 10:30 AM CDT Office Visit [facility] - General Surgery [address] [place] [phone] Linda Dueñas MD [address] [place] [address] 02/07/2025 10:30 AM HAZARDOUS SUBSTANCES SCIENTIST Appointment [address] [address] Linda Dueñas MD [address] [facility] [place] [address] 02/07/2025 11:00 AM HAZARDOUS SUBSTANCES SCIENTIST Office Visit [facility] - General Surgery [address] [place] [address] Linda Dueñas MD [address] [facility] [place] [address] documented as of this encounter Visit Diagnoses Not on filedocumented in this encounter Care Teams Head Esthetician Relationship Specialty Start Date End Date Demar Campbell MD [address] [place] [phone] PCP - General 08/08/17 documented as of this encounter
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
--- OUTSIDE RECORDS SUMMARY | 2024-03-19 00:51 | XMS_ITS | Encounter Summary ---
Author Organization [facility] Address [address] [facility] [place] [address] Care Team Providers Care Oil Field Pumper Name Role Phone Demar Campbell MD Primary Care Provider [phone] Encounter Details Date Type Department Care Team (Late st Contact Info) Description 02/15/2022 Orders Only [facility] [address] [place] [address], [place] [address] Florinda Montenegro MD [address] [place] [address] 3 [place] [address] Encounter for long-term (current) use [...] st Contact Info) Description 04/09/2024 8:00 AM WOOD CAR BUILDER Office Visit [facility] [address] [place] [phone] Gigi Bueno MD [address] [place] [address] [place] [address] 07/01/2024 1:30 PM CDT [facility] [address] [place] [phone] Milka Soni MD [address] [place] [phone] 08/02/2024 9:30 AM CDT Appointment [address] [phone] Linda Duñeas MD [address] [place] [address] 08/02/2024 10:30 AM CDT Office Visit [facility] - General Surgery [address] [place] [phone] Linda Dueñas MD [address] [place] [address] 02/07/2025 10:30 AM WOOD CAR BUILDER Appointment [address] [address] Linda Dueñas MD [address] [place] [address] 02/07/2025 11:00 AM WOOD CAR BUILDER Office Visit [facility] - General Surgery [address] [place] [phone] Linda Dueñas MD [address] [place] [address] documented as of this encounter Visit Diagnoses Diagnosis Encounter for long-term (current) use of high-risk medication Encounter for long-term (current) use of other medications documented in this encounter Care Teams Oil Field Pumper Relationship Specialty Start Date End Date Demar Campbell MD [address] [facility] [address] [facility] 20 [place] [phone] PCP - General 08/08/17 documented as of this encounter
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
--- OUTSIDE RECORDS SUMMARY | 2024-03-19 00:51 | XMS_ITS | Encounter Summary ---
Author Organization [facility] Address [address] [facility] [place] [address] Care Team Providers Care Wood Heel Flap Rubber Name Role Phone Demar Campbell MD Primary Care Provider [phone] Reason for Visit * Reason Onset Date Comments Pain Knee Pain Knee 12/24/2019 Encounter Details Date Type Department Care Team (Late st Contact Info) Description 12/24/2019 1:00 PM CDT Office Visit [facility] [address] [place] [address] Trice Lee PA No Information available Acute pain of left knee (Primary Dx) Social History Tobacco Use Types [...] this encounter Patient Instructions * Patient Instructions* Millie Tovar - 12/24/2019 1:29 PM CDT Images from the original note were not included. - [email or web address] Tessy Medina 12/24/2019 Thank you for coming in to see us today. Work/School Excuse: Excused from Work/School on 12/24/19 DIAGNOSIS: Acute pain of left knee Plan: We discussed and recommended conservative treatment and education which includes: icing, corticosteroid injections, tylenol, ibuprofen and xltd-hrk-nwlusse Voltaren gel applied directly to the knee Recommend yarn worker Dr. Junior Soares at [facility], Follow up: As needed. Call or return to clinic prn if these symptoms worsen or fail to improve as anticipated. If approved to take by your primary care physician, NSAIDs (non-steroidal anti- inflammatory drugs) such as Aleve/naproxen and Motrin/ibuprofen are suggested to relieve inflammation and pain for a short course of therapy for 3 weeks, advised to take with food. If you develop any adverse side effectssuch as dysphasia, stomach pain, or changes in bladder, please discontinue the medication immediately. Please take the following to promote bone health: ?? Multivitamin 1 tablet daily ?? Vitamin D3 2000 IU 1 tablet daily ?? Calcium 600mg with Vitamin D 400 IU 2 tablets daily Cryotherapy is commonly used to reduce temperature, inflammation, pain, muscle spasm and symptoms of delayed onset muscle soreness. There are various methods of ice application such as ice pack, coldpack, cold water immersion, ice massage. You may apply ice to the affected area for 10 minutes at atime. To Find out more info about your diagnosis, visit: [email or web address]/ Patient was educated and given information regarding their diagnosis today. [facility] office contact information: Please contact our call center at , option #1 to make an appointment Our Locations: [facility] Office: [address] [place] [address], [address] [address] Please contact the MA at , if you have any further questions or concerns. [facility] [address] [facility], [address] [id number] Please contact the MA at , if you have any further questions or concerns. [facility] [address] [place] [address] Please contact HAM [phone] if you have any further questions or concerns. Sincerely, LASHON Blulard PA-C [email or web address] documented in this encounter Progress Notes * Trice Lee PA - 12/24/2019 1:04 PM CDT NEW PATIENT VISIT Patient ID: Tessy Medina is a 34 year old female. CHIEF COMPLAINT Left knee pain HISTORY OF PRESENT ILLNESS Patient is a 34 year old female who presents for initial evaluation of left knee pain for 2 weeks. She fell last year 3x times, but no acute injury within the last weeks. Pain is located anteromedialaspect. Pain is a 10/10 with walking. At baseline, pain is a 7/10. Pain is described as sharp, withintermittent aching and dullness. Symptoms worsen with physical activity, especially taking care of her 4 children. Symptoms are relieved with nothing. Patient has tried ibuprofen 800 mg, tylenol, rest, and hot showers without relief. She has not been to physical therapy and has never had injections. PMH She has a past medical history of BRCA2 positive and Ulcerative colitis. PSH She Past Surgical History: Procedure Laterality Date ??? Section 2017 ??? COLONOSCOPY N/A 12/29/2018 N/A; COLONOSCOPY DIAGNOSTIC ??? ENDOSCOPY, UPPER N/A 12/29/2018 N/A; ESOPHAGOGASTRODUODENOSCOPY (EGD) DIAGNOSTIC FAMILY HISTORY She family history includes Cancer - Liver in her maternal uncle; Cancer - Ovarian in her mother; Cancer - Prostate in her maternal uncle. ALLERGIES She has No Known Allergies. MEDICATIONS Reviewed in Chart SOCIAL HISTORY She reports that she has been smoking. She has never used smokeless tobacco. She reports current alcohol use. She reports that she does not use drugs. REVIEW OF SYSTEMS: 12 systems review negative PHYSICAL EXAM: Alert, oriented and cooperative. Mood and affect appropriate. Gait without deviation. Skin warm and dry. Standing posture erect without forward leaning or hyperlordosis. Respirations even unlabored. No cyanosis, clubbing or edema. LEFT KNEE EXAMINATION: There is no enderness to palpation along medial and lateral joint line, quad tendon insertion, patellar tendon insertion. Mild tenderness over tibial tubercle Range of motion includes: Extension 0 deg; Flexion 120 deg. Alignment is neutral. There is no crepitus with range of motion. There is no joint effusion. Stability testing shows: 1 Annita, negative pivot shift, 0posterior drawer, varus laxity normal at 0 and 30 degrees, valgus laxity normal at 0 and 30 degrees. Quadriceps strength is 5 out of 5. Hamstring strength is 5 out of 5. Jacquelnie test is Negative. SKIN: Inspection and palpation of the skin of the lower extremities demonstrates no erythema, rashes, or lesions. LOWER DERMATOMES Right: Anterior & Medial Thigh (L3) Intact Medial Leg & Ankle (L4) Intact Dorsal Foot & 1st Web Space (L5) Intact Lateral & Plantar Foot (S1) Intact Left: Anterior & Medial Thigh (L3) Intact Medial Leg & Ankle (L4) Intact Dorsal Foot & 1st Web Space (L5) Intact Lateral & Plantar Foot (S1) Intact VASCULAR: Bilateral lower extremities with no pallor or rubor, brisk capillary refill. PULMONARY: Unlabored respirations. IMAGING: Imaging of left knee ordered today and reviewed by me revealing well maintained joint space. No soft tissue swelling, fracture, or dislocation. ASSESSMENT: Acute left knee pain TREATMENT PLAN: 34 year old female with left knee pain. 1. Patient was counseled to the nature of the diagnosis and demonstrated understanding. All questions answered. 2. Discussed conservative options including PT, NSAIDs, tylenol, ice/heat, voltaren gel, and steroid injections. Given the acuity of her pain, she would like to proceed with a steroid injection. Discussed side effects of possible flare and how to manage it. Please see procedure note for further detail. 3. PT orders given and patient encouraged to attend at least 2 visits to get a HEP together. 4. Patient can continue ibuprofen prn. 5. Lifting/Activity restrictions: none 6. Follow up as needed. She is to call with any questions or concerns. LASHON Bullard, JANET-C [facility] Orthopaedic Surgery Collaborative practice with Dr. Vinicio Khan, Dr. Vish Arevalo, Dr. Dagmar Huffman, and Dr. Gilbert documented in this encounter Procedure Notes * Trice Lee PA - 12/24/2019 1:38 PM CDTAssociated Order(s): PROCDOC LARGE JOINT INJECTION Procedure(s): [place] DRAIN/INJECT LARGE JOINT/BURSA Pre-Procedure Diagnose(s): Acute pain of left knee Post-Procedure Diagnose(s): Acute pain of left knee Right Knee Injection: Patient placed in seated position with knee at 90 degrees. Skin cleansed withbetadine and isopropyl alcohcol. Ethyl Chloride used to anesthetize skin. Joint accessed via anterolateral portal with 21g needle. Syringe aspirated with no bloody show. A combination of 3cc 1% lidocaine and 1cc 40mg/mL Kenalog infused into the joint. Needle removed and bandage placed. Patient tolerated the procedure well. documented in this encounter Plan of Treatment Upcoming Encounters Date Type Department Care Team (Late st Contact Info) Description 04/09/2024 8:00 AM WILDLIFE OFFICER Office Visit [facility] [address] [place] [phone] Gigi Bueno MD [address] [place] [address] [place] [address] 07/01/2024 1:30 PM CDT Office Visit [facility] [address] [place] [phone] Milka Soni MD [address] [place] [address] 08/02/2024 9:30 AM CDT Appointment [facility] MRI [address] [place] [address] Linda Dueñas MD [address] [facility] [place] [address] 08/02/2024 10:30 AM CDT Office Visit [facility] - General Surgery [address] [place] [phone] Linda Dueñas MD [address] [facility] [place] [address] 02/07/2025 10:30 AM WILDLIFE OFFICER Appointment [address] [address] Linda Dueñas MD [address] [facility] [address] 02/07/2025 11:00 AM WILDLIFE OFFICER Office Visit [facility] - General Surgery [address] [place] [phone] Linda Dueñas MD [address] [facility] [address] documented as of this encounter Procedures Procedure Name Priority Date/Time Associated Diagnosis Comments WY DRAIN/INJECT LARGE JOINT/BURSA Routine 12/24/2019 1:38 PM CDT Acute pain of left knee documented in this encounter Results * WY DRAIN/INJECT LARGE JOINT/BURSA (12/24/2019 1:38 PM CDT) [...] well. Trice GONZALES PROCEDURE/MINOR SURG ICAL ORDERABLES documented in this encounter Visit Diagnoses Diagnosis Acute pain of left knee- Primary documented in this encounter Administered Medications Inactive Administered Medications - up to 3 most recent administrations Medication Order MAR Action Action Date Dose Rate Site lidocaine PF (XYLOCAINE MPF) 1 % injection Infiltration, ONCE, 1 dose, On Fri12/24/19 at 1400 $ Given 12/24/2019 1:39 PM CDT Left Knee triamcinolone acetonide (KENALOG-40) injection 40 mg 40 mg, Intra-articular, ONCE, 1 dose, On Fri12/24/19 at 1400, Shake well before using. $ Given 12/24/2019 1:39 PM CDT 40 mg Left Knee documented in this encounter Care Teams Wood Heel Flap Rubber Relationship Specialty Start Date End Date Demar Campbell MD [address] [facility] [address] [phone] PCP - General 08/08/17 documented as of this encounter
--- OUTSIDE RECORDS SUMMARY | 2024-03-19 00:51 | XMS_ITS | Encounter Summary ---
Author Organization [facility] Address [address] [facility] [place] [address] Care Team Providers Care Plaster Mold Maker Name Role Phone Demar Campbell MD Primary Care Provider [phone] Encounter Details Date Type Department Care Team (Latest Contact Info) Description 02/04/2024 Travel Social History Tobacco Use Types Packs/Day [...] st Contact Info) Description 04/09/2024 8:00 AM SOFTWARE DEVELOPER MANAGER Office [place] [facility] [place] [address] [place] [address], [place] [address] Gigi Bueno MD [address] [place] [address] [place] [address] 07/01/2024 1:30 PM CDT Office Visit [facility] [address] [facility], [place] [address] Milka Soni MD [address] [place] [address] 08/02/2024 9:30 AM CDT Appointment [facility] MRI [address] [place] [address] Linda Dueñas MD [address] [facility] [place] [address] 08/02/2024 10:30 AM CDT Office [facility] - General Surgery [address] [place] [phone] Linda Dueñas MD [address] [facility] [place] [address] 02/07/2025 10:30 AM SOFTWARE DEVELOPER MANAGER Appointment [address] [address] Linda Dueñas MD [address] [facility] [place] [address] 02/07/2025 11:00 AM SOFTWARE DEVELOPER MANAGER Office [facility] - General Surgery [address] [place] [phone] Linda Dueñas MD [address] [facility] [place] [address] documented as of this encounter Visit Diagnoses Not on filedocumented in this encounter Care Teams Plaster Mold Maker Relationship Specialty Start Date End Date Demar Campbell MD [address] [phone] PCP - General 08/08/17 documented as of this encounter
--- OUTSIDE RECORDS SUMMARY | 2024-03-19 00:52 | XMS_ITS | Encounter Summary ---
Author Organization [facility] Address [address] [facility] [place] [address] Care Team Providers Care Supervisor Cartography Name Role Phone Demar Campbell MD Primary Care Provider [phone] Reason for Visit * Reason Onset Date Comments Encounter Opened In Error 04/07/2019 Encounter Details Date Type Department Care Team (Late st Contact Info) Description 04/07/2019 Telephone [facility] General Surgery [address] [place] [address] Linda Dueñas MD [address] [facility] [place] [address] Encounter Opened In Error Social History Tobacco Use Types Packs/Day Years [...] Contact Info) Description 04/09/2024 8:00 AM METAL MOLDER Office Visit [facility] [address] [place] [phone] Gigi Bueno MD [address] [place] [address] [place] [address] 07/01/2024 1:30 PM CDT [facility] [address] [place] [phone] Milka Soni MD [address] [place] [phone] 08/02/2024 9:30 AM CDT Appointment [address] [phone] Linda Dueñas MD [address] [place] [address] 08/02/2024 10:30 AM CDT Office Visit [facility] - General Surgery [address] [place] [phone] Linda Dueñas MD [address] [place] [address] 02/07/2025 10:30 AM METAL MOLDER Appointment [address] [address] Linda Dueñas MD [address] [place] [address] 02/07/2025 11:00 AM METAL MOLDER Office Visit [facility] - General Surgery [address] [place] [phone] Linda Dueñas MD [address] [facility] [place] [address] documented as of this encounter Visit Diagnoses Not on filedocumented in this encounter Care Teams Supervisor Cartography Relationship Specialty Start Date End Date Demar Campbell MD [address] [place] [address] PCP - General 08/08/17 documented as of this encounter
--- OUTSIDE RECORDS SUMMARY | 2024-03-19 00:52 | XMS_ITS | Encounter Summary ---
Author Organization [facility] Address [address] [place] [address] Care Team Providers Care Director Selection And Administration Name Role Phone Demar Campbell MD Primary Care Provider [phone] Reason for Visit * Reason Onset Date Comments Results 05/21/2019 Encounter Details Date Type Department Care Team (Late st Contact Info) Description 05/21/2019 Telephone [facility] [address] [place], [place] [phone] Mara Latif MD Need updated address Results Social History Tobacco Use Types Packs/Day [...] as of this encounter Progress Notes * Lindsey Miles RN - 05/24/2019 3:01 PM CDT Pt returns call to triage line. Explained Dr Latif's message. Pt would like a call back from Dr Latif or her nurse re the difference between the MR defecography and an Anorectal manometry. documented in this encounter Miscellaneous Notes * Telephone Encounter - Mara Latif MD - 05/21/2019 2:06 PM SUPERINTENDENT SERVICE Attempted to call patient about recent MR defecography results, will plan on Anorectal manometry, no answer left VM to call us back RINTENDENT SERVICE documented in this encounter Plan of Treatment Upcoming Encounters Date Type Department Care Team (Late st Contact Info) Description 04/09/2024 8:00 AM SUPERINTENDENT SERVICE Office Visit [facility] - GI [address] [place] [phone] Gigi Bueno MD [address] [place] [address] OF [place]STR[place] [address] 07/01/2024 1:30 PM CDT Office Visit [facility] - GI [address] [place] [phone] Milka Soni MD [address] [place] [address] 08/02/2024 9:30 AM CDT Appointment [facility] MRI [address] [place] [address] Linda Dueñas MD [address] [place] [address] 08/02/2024 10:30 AM CDT Office Visit [facility] - General Surgery [address] [place] [phone] Linda Dueñas MD [address] [facility] [place] [address] 02/07/2025 10:30 AM SUPERINTENDENT SERVICE Appointment [facility] [address] [place] [address] Linda Dueñas MD [address] [place] [address] 02/07/2025 11:00 AM SUPERINTENDENT SERVICE Office Visit [facility] - General Surgery [address] [place] [phone] Linda Dueñas MD [address] [facility] [place] [address] documented as of this encounter Visit Diagnoses Diagnosis Solitary rectal ulcer syndrome- Primary documented in this encounter Care Teams Director Selection And Administration Relationship Specialty Start Date End Date Demar Campbell MD [address] [facility] [address] [phone] PCP - General 08/08/17 documented as of this encounter
--- OUTSIDE RECORDS SUMMARY | 2024-03-19 00:52 | XMS_ITS | Encounter Summary ---
Author Organization [facility] Address [address] [facility] [place] [address] Care Team Providers Care Addresser Name Role Phone Demar Campbell MD Primary Care Provider [phone] Reason for Referral * Radiology Services (Routine) - Closed Specialty Diagnoses / Procedures Referred By Vj heredia Referred To Contact Mammography Diagnoses BRCA2 positive Procedures MAMMO BILAT DIAGNOSTIC Linda Dueñas MD [address] [place] [address] [facility] Breast [place] [facility] [address] [place] [address] Referral ID Status Reason Start Date Expiration Date Visits Re quested Visits Authorized [id number] Closed 03/29/2019 09/25/2019 1 1 STEAMER Reason for Visit * Radiology Services (Routine) - Closed Specialty Diagnoses / Procedures Referred By Conthesham heredia Referred To Contact Mammography Diagnoses BRCA2 positive Procedures MAMMO BILAT DIAGNOSTIC Linda Dueñas MD [address] [place] [address] [facility] Breast [facility] Op [address] [place] [address] Referral ID Status Reason Start Date Expiration Date Visits Re quested Visits Authorized [id number] Closed 03/29/2019 09/25/2019 1 1 Encounter Details Date Type Department Care Team (Latest Contact Info) Description 05/05/2019 9:00 AM SEAM STEAMER - 05/05/2019 9:19 AM SEAM STEAMER Hospital Encounter [facility] [address] [place] [address] Linda Dueñas MD [address] [facility] [address] Discharge Disposition: Home or Self Care Social [...] st Contact Info) Description 04/09/2024 8:00 AM SEAM STEAMER Office Visit [facility] [address] [place] [phone] Gigi Bueno MD [address] [place] [address] [place] [address] 07/01/2024 1:30 PM CDT Office Visit [facility] [address] [place] [phone] Milka Soni MD [address] [place] [phone] 08/02/2024 9:30 AM CDT Appointment [facility] MRI [address] [place] [address] Linda Dueñas MD [address] [facility] [place] [address] 08/02/2024 10:30 AM CDT Office Visit [facility] - General Surgery [address] [place] [phone] Linda Dueñas MD [address] [facility] [address] 02/07/2025 10:30 AM SEAM STEAMER Appointment [address] [address] Linda Dueñas MD [address] [facility] [place] [address] 02/07/2025 11:00 AM SEAM STEAMER Office Visit [facility] Physician [facility] General Surgery [address] [place] [phone] Linda Dueñas MD [address] [facility] [place] [address] documented as of this encounter Procedures Procedure Name Priority Date/Time Associated Diagnosis Comments MAMMO BILAT DIAGNOSTIC Routine 05/05/2019 10:13 AM SEAM STEAMER BRCA2 positive documented in this encounter Results * MAMMO BILAT DIAGNOSTIC (05/05/2019 10:13 AM SEAM STEAMER) Anatomical Region Laterality Modality Breast Bilateral Mammography 05/05/2019 9:59 AM SEAM STEAMER Impressions 05/05/2019 2:35 PM SEAM STEAMER IMPRESSION: No mammographic evidence of malignancy in [...] 2:35 PM . Narrative 05/05/2019 2:35 PM SEAM STEAMER BILATERAL DIAGNOSTIC MAMMOGRAM LIMITED RIGHT BREAST ULTRASOUND TECHNIQUE: Images were performed using 3D tomosynthesis images with reconstructed/synthetic 2D images. ??CAD analysis was performed. DATE: 05/05/2019. HISTORY: 33-year-old with a BRCA2 mutation referred for annual mammography as well as follow-up of a probably benign right breast mass. It was first identified on 11/25/2017 mammogram and targeted ultrasound performed at [facility]. She did not return for the recommended follow-up. She is breast-feeding her 2-year-old twins. Additionally, she underwent breast MRI at [facility] on 10/23/2016. A 3 mm enhancing focus in the central left breast was identified and considered indeterminate. MR guided biopsy was recommended. However, biopsy was not performed because the patient became . On the 11/25/2017 breast imaging report from [facility], bilateral breast MRI was recommended for high-risk screening as well as to reassess the indeterminate focus in the left breast and to assist in assessing the right breast mass identified on mammography and ultrasound. Scratch that On 12/25/2017, she underwent breast MRI at [facility]. It was considered limited due to [...] prior study. Follow-up ultrasound performed by the telecommunication engineer and physician. At 10:00, 11 cm from the nipple, there is a prominent axillary lymph node with a cortex measuring up to 0.3 cm. This can be further evaluated with the pending breast MRI. There is no suspicious solid or cystic mass. The mass identified on 11/25/2017 ultrasound is not identified on today's exam. Linda Dueñas MD MAMMO ORDERABLES documented in this encounter Visit Diagnoses Diagnosis BRCA2 positive Genetic susceptibility to malignant neoplasm of breast documented in this encounter Care Teams Addresser Relationship Specialty Start Date End Date Demar Campbell MD [address] [facility] [address] [facility] [address] [place] [address] PCP - General 08/08/17 documented as of this encounter
--- OUTSIDE RECORDS SUMMARY | 2024-03-19 00:52 | XMS_ITS | Encounter Summary ---
Author Organization [facility] Address [address] [facility] [place] [address] Care Team Providers Care Plumbing Service Technician Name Role Phone Demar Campbell MD Primary Care Provider [phone] Reason for Visit * Reason Onset Date Comments Results 04/14/2019 Encounter Details Date Type Department Care Team (Late st Contact Info) Description 04/14/2019 Telephone [facility] [address] [place], [place] [phone] Mara Latif MD Need updated address Results [...] as of this encounter Progress Notes * Shena Gutierrez RN - 04/16/2019 2:46 PM CST Pt calls triage line, requests return call from Dr. Latif at home # on file. D ASSESSOR documented in this encounter Miscellaneous Notes * Telephone Encounter - Mara Latif MD - 04/14/2019 10:38 AM FIELD ASSESSOR Attempted to call patient to discuss with her MRI results, no answer left VM for her to call me back. D ASSESSOR documented in this encounter Plan of Treatment Upcoming Encounters Date Type Department Care Team (Late st Contact Info) Description 04/09/2024 8:00 AM FIELD ASSESSOR Office Visit [facility] - GI [address] [place] [phone] Gigi Bueno MD [address] [place] [address] [place] [address] 07/01/2024 1:30 PM CDT Office Visit [facility] - GI [address] [place] [phone] Milka Soni MD [address] [place] [address] 08/02/2024 9:[address] [facility] MRI [address] [place] [address] Linda Dueñas MD [address] [place] [address] 08/02/2024 10:30 AM CDT [facility] General Surgery [address] [place] [phone] Linda Dueñas MD [address] [place] [address] 02/07/2025 10:30 AM FIELD ASSESSOR Appointment [facility] [address] [place] [address] Linda Dueñas MD [address] [place] [address] 02/07/2025 11:00 AM FIELD ASSESSOR Office Visit [facility] - General Surgery [address] [place] [phone] Linda Dueñas MD [address] [place] [address] documented as of this encounter Visit Diagnoses Not on filedocumented in this encounter Care Teams Plumbing Service Technician Relationship Specialty Start Date End Date Demar Campbell MD [address] [facility] 20 [place] [address] PCP - General 08/08/17 documented as of this encounter
--- OUTSIDE RECORDS SUMMARY | 2024-03-19 00:52 | XMS_ITS | Encounter Summary ---
Author Organization [facility] Address [address] [facility] [place] [address] Care Team Providers Care Silver Wrapper Name Role Phone Demar Campbell MD Primary Care Provider [phone] Reason for Visit * Reason Comments Results Encounter Details Date Type Department Care Team ([facility] st Contact Info) Description 05/25/2019 Telephone [facility] 302 [address] [place], [place] [phone] Liz Diallo, RN Results Social History Tobacco [...] Telephone Encounter - Liz Diallo RN - 05/25/2019 10:01 AM CDT Called patient to discuss the following per Dr. Latif, please let her know her MRI showed that she has difficulty initiating defecation and incomplete emptying of her rectum. I would like to sendher for anorectal manometry to test her pelvic muscles and will plan on therapy according to results I was unable to reach patient and LM on cell phone, I also discussed how the manometry works. I asked that she call back to let us know if she would like us to schedule this for her and to answer any questions she has. documented in this encounter Plan of Treatment Upcoming Encounters Date Type Department Care Team (Late st Contact Info) Description 04/09/2024 8:00 AM SWEET PICKLE MAKER Office Visit [facility] - GI [address] [place] [phone] Gigi Bueno MD [address] [place] [address] [place] [address] 07/01/2024 1:30 PM CDT Office Visit [facility] - GI [address] [place] [phone] Milka Soni MD [address] [place] [phone] 08/02/2024 9:30 AM CDT Appointment [facility] MRI [address] [place] [phone] Linda Dueñas MD [address] [place] [address] 08/02/2024 10:30 AM CDT Office Visit [facility] - General Surgery [address] [place] [phone] Linda Dueñas MD [address] [place] [address] 02/07/2025 10:30 AM SWEET PICKLE MAKER Appointment [address] [place] [address] Linda Dueñas MD [address] [place] [address] 02/07/2025 11:00 AM SWEET PICKLE MAKER Office Visit [facility] - General Surgery [address] [place] [phone] Linad Dueñas MD [address] [place] [address] documented as of this encounter Visit Diagnoses Not on filedocumented in this encounter Care Teams Silver Wrapper Relationship Specialty Start Date End Date Demar Campbell MD [address] [facility] [address] [facility] 20 [place] [phone] PCP - General 08/08/17 documented as of this encounter
--- OUTSIDE RECORDS SUMMARY | 2024-03-19 00:52 | XMS_ITS | Encounter Summary ---
Author Organization [facility] Address [address] [facility] [place] [address] Care Team Providers Care Roll Forming Supervisor Name Role Phone Demar Campbell MD Primary Care Provider [phone] Reason for Referral * Radiology Services (Routine) - Closed Specialty Diagnoses / Procedures Referred By Contac t Referred To Contact MRI Diagnoses Ulcerative pancolitis without complication (HCC) Diarrhea, unspecified type Procedures MRI PELVIS WO CONTRAST DEFECOGRAM Mara Latif MD Need updated address [facility] Mri [address] [place] [address] Referral ID Status Reason Start Date Expiration Date Visits Re quested Visits Authorized [id number] Closed 05/09/2019 06/19/2019 1 1 OSAL CONSULTANT Encounter Details Date Type Department Care Team (Late st Contact Info) Description 04/14/2019 Orders Only [facility] GI [address] [place] [address] Mara Latif MD Need updated address Ulcerative pancolitis without complication (HCC) ; Diarrhea, unspecified type Social History Tobacco Use Types Packs/Day Years [...] st Contact Info) Description 04/09/2024 8:00 AM PROPOSAL CONSULTANT Office Visit [facility] - GI [address] [place] [phone] Gigi Bueno MD [address] [place] [address] [place] [address] 07/01/2024 1:30 PM CDT Office Visit [facility] - GI [address] [place] [phone] Milka Soni MD [facility]1 [place] [address] 08/02/2024 9:30 AM CDT Appointment [facility] [address] [place] [address] Linda Dueñas MD [address] [place] [address] 08/02/2024 10:30 AM CDT Office Visit [facility] - General Surgery [address] [place] [phone] Linda Dueñas MD [address] [place] [address] 02/07/2025 10:30 AM PROPOSAL CONSULTANT Appointment [address] [address] Linda Dueñas MD [address] [place] [address] 02/07/2025 11:00 AM PROPOSAL CONSULTANT Office Visit [facility] - General Surgery [address] [place] [phone] Linda Dueñas MD [address] [place] [address] documented as of this encounter Results * MRI PELVIS WO CONTRAST DEFECOGRAM (05/13/2019 3:40 PM PROPOSAL CONSULTANT) Anatomical Region Laterality Modality Pelvis Magnetic Resonan ce 05/13/2019 3:32 PM PROPOSAL CONSULTANT Impressions 05/18/2019 8:37 AM PROPOSAL CONSULTANT IMPRESSION: 1. Difficulty initiating defecation. Significant descent of the pelvic floor during attempted defecation with incomplete emptying of the rectum. 2. Mild rectal wall thickening, possibly related to prior inflammation. Dictated by Radha Azul MD (resident assistant). I, Dr. JUNE NAVA M.D. have personally reviewed and interpreted this examination/study. This report was electronically signed by JUNE NAVA M.D. ??on 05/18/2019 8:37 AM . Narrative 05/18/2019 8:37 AM PROPOSAL CONSULTANT EXAMINATION: Magnetic resonance imaging (MRI) defecography of [...] prior inflammation. Dictated by Radha Azul MD (resident assistant). I, Dr. JUNE NAVA M.D. have personally reviewed and interpreted this examination/study. This report was electronically signed by JUNE NAVA M.D. on05/18/2019 8:37 AM . Mara Latif MD MR ORDERABLES documented in this encounter Visit Diagnoses Diagnosis Ulcerative pancolitis without complication (HCC)- Primary Diarrhea, unspecified type Ulcerative pancolitis without complication (HCC) Diarrhea, unspecified type documented in this encounter Care Teams Roll Forming Supervisor Relationship Specialty Start Date End Date Demar Campbell MD [address] [facility] [address] [facility] 20 [place] [address] PCP - General 08/08/17 documented as of this encounter
--- OUTSIDE RECORDS SUMMARY | 2024-03-19 00:52 | XMS_ITS | Encounter Summary ---
Author Organization [facility] Address [address] [facility] [place] [address] Care Team Providers Care Boner Meat Name Role Phone Demar Campbell MD Primary Care Provider [phone] Reason for Visit * Radiology Services (Routine) - Closed Specialty Diagnoses / Procedures Referred By Contac t Referred To Contact Mammography Diagnoses BRCA2 positive Procedures US BREAST RIGHT LTD US BREAST LEFT LTD Linda Dueñas MD [address] [place] [address] [facility] Op [address] [place] [address] Referral ID Status Reason Start Date Expiration Date Visits Re quested Visits Authorized [id number] Closed 03/27/2019 09/23/2019 1 1 Encounter Details Date Type Department Care Team (Latest Contact Info) Description 05/05/2019 9:20 AM TAXICAB DISPATCHER - 05/05/2019 11:59 AM TAXICAB DISPATCHER Hospital Encounter [facility] BREAST [place] [address] [place] [address] Linda Dueñas MD [address] [place] [address] Discharge Disposition: Home or Self [...] st Contact Info) Description 04/09/2024 8:00 AM TAXICAB DISPATCHER Office Visit [facility] - GI [address] [place] [phone] Gigi Bueno MD [address] [place] [address] [place] [address] 07/01/2024 1:30 PM CDT Office Visit [facility] - GI [address] [place] [phone] Milka Soni MD [address] [place] [address] 08/02/2024 9:30 AM CDT Appointment [facility] [address] [place] [address] Linda Dueñas MD [address] [place] [address] 08/02/2024 10:30 AM CDT Office Visit [facility] - General Surgery [address] [place] [phone] Linda Dueñas MD [address] [place] [address] 02/07/2025 10:30 AM TAXICAB DISPATCHER Appointment [facility] [address] [place] [address] Linda Dueñas MD [address] [place] [address] 02/07/2025 11:00 AM TAXICAB DISPATCHER Office Visit [facility] - General Surgery [address] [place] [phone] Linda Dueñas MD [address] [place] [address] documented as of this encounter Procedures Procedure Name Priority Date/Time Associated Diagnosis Comments US BREAST RIGHT LTD Routine 05/05/2019 1 0:41 AM TAXICAB DISPATCHER BRCA2 positive documented in this encounter Results * US BREAST RIGHT LTD (05/05/2019 10:41 AM TAXICAB DISPATCHER) Anatomical Region Laterality Modality Breast Right Mammography 05/05/2019 9:59 AM TAXICAB DISPATCHER Impressions 05/05/2019 2:35 PM TAXICAB DISPATCHER IMPRESSION: No mammographic evidence of malignancy in [...] 2:35 PM . Narrative 05/05/2019 2:35 PM TAXICAB DISPATCHER BILATERAL DIAGNOSTIC MAMMOGRAM LIMITED RIGHT BREAST ULTRASOUND TECHNIQUE: Images were performed using 3D tomosynthesis images with reconstructed/synthetic 2D images. ??CAD analysis was performed. DATE: 05/05/2019. HISTORY: 33-year-old with a BRCA2 mutation referred for annual mammography as well as follow-up of a probably benign right breast mass. It was first identified on 11/25/2017 mammogram and targeted ultrasound performed at [facility]. She did not return for the recommended follow-up. She is breast-feeding her 2-year-old twins. Additionally, she underwent breast MRI at [facility] on 10/23/2016. A 3 mm enhancing focus in the central left breast was identified and considered indeterminate. MR guided biopsy was recommended. However, biopsy was not performed because the patient became . On the 11/25/2017 breast imaging report from [facility], bilateral breast MRI was recommended for high-risk screening as well as to reassess the indeterminate focus in the left breast and to assist in assessing the right breast mass identified on mammography and ultrasound. Scratch that On 12/25/2017, she underwent breast MRI at [facility]. It was considered limited due to [...] prior study. Follow-up ultrasound performed by the portfolio director and physician. At 10:00, 11 cm from the nipple, there is a prominent axillary lymph node with a cortex measuring up to 0.3 cm. This can be further evaluated with the pending breast MRI. There is no suspicious solid or cystic mass. The mass identified on 11/25/2017 ultrasound is not identified on today's exam. Linda Dueñas MD ORDERABLES documented in this encounter Visit Diagnoses Diagnosis BRCA2 positive Genetic susceptibility to malignant neoplasm of breast documented in this encounter Care Teams Boner Meat Relationship Specialty Start Date End Date Demar Campbell MD [address] [place] [phone] PCP - General 08/08/17 documented as of this encounter
--- OUTSIDE RECORDS SUMMARY | 2024-03-19 00:52 | XMS_ITS | Encounter Summary ---
Author Organization [facility] Address [address] [facility] [place] [address] Care Team Providers Care Financial Economist Name Role Phone Demar Campbell MD Primary Care Provider [phone] Reason for Visit * Reason Comments Appointment Encounter Details Date Type Department Care Team (Late st Contact Info) Description 04/22/2019 Telephone [facility] 302 [address] [place] [address] Mara Latif MD Need updated address Appointment Social History Tobacco Use Types Packs/Day Years [...] encounter Miscellaneous Notes * Telephone Encounter - Nelda Brown RN - 04/22/2019 9:02 AM CST Called pt to inform her that her appointment was changed to May [address]. Also informed her that her MRI of the pelvis that the Dr ordered is scheduled for May 01 at 3 pm. She is to have clear liquids the day before the test and she is to start the prep on this day. She is to take 4 ducolax tablets with water at 1200pm and at 6 pm she is to put 238 gm of miralax in a 64 oz bottle of gatorade. Any color gatorade except red or blue. She is to drink 8 oz every 15 min until it is gone. Informed her that the MRI department will send her the instructions again and someone from the department should call her to remind her. She is then to be NPO after mid night Pt states understanding and confirms appointment. R EMPLOYMENT ASSOCIATE documented in this encounter Plan of Treatment Upcoming Encounters Date Type Department Care Team (Late st Contact Info) Description 04/09/2024 8:00 AM LABOR EMPLOYMENT ASSOCIATE Office Visit [facility] - GI [address] [place] [phone] Gigi Bueno MD [address] [place] [address] [place] [address] 07/01/2024 1:30 PM CDT Office Visit [facility] [place] [address] [place] [phone] Milka Soni MD [address] [place] [address] 08/02/2024 9:30 AM CDT Appointment [facility] MRI [address] [place] [phone] Linda Dueñas MD [address] [facility] [place] [address] 08/02/2024 10:30 AM CDT Office Visit [facility] - General Surgery [address] [place] [phone] Linda Dueñas MD [address] [place] [address] 02/07/2025 10:30 AM LABOR EMPLOYMENT ASSOCIATE Appointment [facility] [address] [place] [address] Linda Dueñas MD [address] [facility] [place] [address] 02/07/2025 11:00 AM LABOR EMPLOYMENT ASSOCIATE Office Visit [facility] - General Surgery [address] [place] [phone] Linda Dueñas MD [address] [facility] [place] [address] documented as of this encounter Visit Diagnoses Not on filedocumented in this encounter Care Teams Financial Economist Relationship Specialty Start Date End Date Demar Campbell MD [address] [facility] [address] [phone] PCP - General 08/08/17 documented as of this encounter
--- OUTSIDE RECORDS SUMMARY | 2024-03-19 00:52 | XMS_ITS | Encounter Summary ---
Author Organization [facility] Address [address] [facility] [place] [address] Care Team Providers Care Websphere Commerce Developer Name Role Phone Demar Campbell MD Primary Care Provider [phone] Reason for Visit * Reason Onset Date Comments Follow-up 03/05/2019 Encounter Details Date Type Department Care Team (Late st Contact Info) Description 03/05/2019 Telephone [facility] [address] [place], [place] [phone] Mara Latif MD Need updated address Follow-up Social History Tobacco Use Types Packs/Day [...] Telephone Encounter - Mara Latif MD - 03/05/2019 11:22 AM ADMINISTRATIVE ASSISTANT COORDINATOR Called patient to discuss with her outside records left her VM to call back NISTRATIVE ASSISTANT COORDINATOR documented in this encounter Plan of Treatment Upcoming Encounters Date Type Department Care Team (Late st Contact Info) Description 04/09/2024 8:00 AM ADMINISTRATIVE ASSISTANT COORDINATOR Office Visit [facility] - GI [address] [place] [phone] Gigi Bueno MD [address] [place] [address] [place] [address] 07/01/2024 1:30 PM CDT Office Visit [facility] - GI [address] [place] [phone] Milka Soni MD [facility] [place] [address] 08/02/2024 9:30 AM CDT Appointment [facility] MRI [address] [place] [phone] Linda Dueñas MD [address] [facility] [place] [address] 08/02/2024 10:30 AM CDT Office Visit [facility] - General Surgery [address] [place] [address] Linda Dueñas MD [address] [place] [address] 02/07/2025 10:30 AM ADMINISTRATIVE ASSISTANT COORDINATOR Appointment [address] [address] Linda Dueñas MD [address] [place] [address] 02/07/2025 11:00 AM ADMINISTRATIVE ASSISTANT COORDINATOR Office Visit [facility] - General Surgery [address] [place] [address] Linda Dueñas MD [address] [facility] [place] [address] documented as of this encounter Visit Diagnoses Not on filedocumented in this encounter Care Teams Websphere Commerce Developer Relationship Specialty Start Date End Date Demar Campbell MD [address] [facility] 162 [facility] 20 [place] [phone] PCP - General 08/08/17 documented as of this encounter
--- OUTSIDE RECORDS SUMMARY | 2024-03-19 00:52 | XMS_ITS | Encounter Summary ---
Author Organization [facility] Address [address] [place] [address] Care Team Providers Care Boiler Installer Name Role Phone Demar Campbell MD Primary Care Provider [phone] Reason for Visit * Reason Onset Date Comments Future Appointment 04/07/2019 Encounter Details Date Type Department Care Team (Late st Contact Info) Description 04/07/2019 Telephone [facility] General Surgery [address] [place] [address] Ivon Coyle RN Future Appointment Social History Tobacco Use Types Packs/Day [...] encounter Miscellaneous Notes * Telephone Encounter - Ivon Coyle RN - 04/07/2019 10:55 AM CST Called patient and let her know that if she is able to pump or breast feed her children prior to the breast imaging then we can proceed with imaging. Imaging set up as follows: Friday Mammogram 9 am US 930 am MRI at 12 pm Patient aware and stated an understanding. ASTRUCTURE SECURITY ARCHITECT documented in this encounter Plan of Treatment Upcoming Encounters Date Type Department Care Team (Late st Contact Info) Description 04/09/2024 8:00 AM INFRASTRUCTURE SECURITY ARCHITECT Office Visit [facility] - GI [address] [place] [phone] Gigi Bueno MD [address] [place] [address] [place] [address] 07/01/2024 1:30 PM CDT Office [facility] - GI [address] [place] [phone] Milka Soni MD [facility] [place] [address] 08/02/2024 9:30 AM CDT Appointment [facility] MRI [address] [place] [address] Linda Dueñas MD [address] [place] [address] 08/02/2024 10:30 AM CDT Office [facility] - General Surgery [address] [place] [phone] Linda Dueñas MD [address] [place] [address] 02/07/2025 10:30 AM INFRASTRUCTURE SECURITY ARCHITECT Appointment [address] [address] Linda Dueñas MD [address] [facility] [place] [address] 02/07/2025 11:00 AM INFRASTRUCTURE SECURITY ARCHITECT Office Visit [facility] - General Surgery [address] [place] [address] Linda Dueñas MD [address] [facility] [place] [address] documented as of this encounter Visit Diagnoses Not on filedocumented in this encounter Care Teams Boiler Installer Relationship Specialty Start Date End Date Demar Campbell MD [address] [facility] [address] [facility] 20 [place] [address] PCP - General 08/08/17 documented as of this encounter
--- OUTSIDE RECORDS SUMMARY | 2024-03-19 00:52 | XMS_ITS | Encounter Summary ---
Author Organization [facility] Address [address] [place] [address] Care Team Providers Care Weight Loss Centre Manager Name Role Phone Demar Campbell MD Primary Care Provider [phone] Encounter Details Date Type Department Care Team (Latest Contact Info) Description 02/24/2019 3:41 PM CLIENT SERVICE MANAGER - 02/24/2019 11:59 PM [facility] Hospital Encounter [facility] DRAW STATION [address] [place] [phone] Mara Latif MD Need updated address Discharge Disposition: Home or Self Care Social [...] Sig Dispensed Refills Start Date End Date folic acid (FOLVITE) 1 MG tablet Take 1 tablet by mouth once daily for 90 days 90 tablet 12/24/2018 03/24/2019 documented as of this encounter Plan of Treatment Upcoming Encounters Date Type Department Care Team (Late st Contact Info) Description 04/09/2024 8:00 AM CLIENT SERVICE MANAGER [facility] GI [address] [place] [phone] Gigi Bueno MD [address] [place] [address] [place] [address] 07/01/2024 1:30 PM CDT Office Visit [facility] - GI [address] [place] [phone] Milka Soni MD [address] [place] [phone] 08/02/2024 9:30 AM CDT Appointment [address] [phone] Linda Dueñas MD [address] [place] [address] 08/02/2024 10:30 AM CDT Office Visit [facility] - General Surgery [address] [place] [phone] Linda Dueñas MD [address] [place] [address] 02/07/2025 10:30 AM CLIENT SERVICE MANAGER Appointment [address] [address] Linda Dueñas MD [address] [place] [address] 02/07/2025 11:00 AM CLIENT SERVICE MANAGER Office Visit [facility] - General Surgery [address] [place] [phone] Linda Dueñas MD [address] [facility] [place] [address] documented as of this encounter Procedures Procedure Name Priority Date/Time Associated Diagnosis Comments TISSUE TRANSGLUTAMINASE AB IGA Routine 02/24/2019 3:52 PM CLIENT SERVICE MANAGER Diarrhea, unspecified type HEMOGLOBIN ELECTROPHORESIS Routine 02/24/2019 3:52 PM CLIENT SERVICE MANAGER Microcytic anemia IGA BLOOD Routine 02/24/2019 3:52 PM CLIENT SERVICE MANAGER Diarrhea, unspecified type documented in this encounter Results * IGA BLOOD (02/24/2019 3:52 PM CLIENT SERVICE MANAGER) [facility] IgA 240 87 - 534 mg/dL 02/24/2019 5:00 PM CLIENT SERVICE MANAGER [facility] Blood BLOOD SPECIMEN / Unknown Lab Venipuncture / Unknown 02/24/2019 3:52 PM CLIENT SERVICE MANAGER 02/24/2019 4:22 PM CLIENT SERVICE MANAGER Mara Latif MD LAB - CHEMISTRY OR DERABLES Performing Organization Address City/State/[facility] Co de Phone Number [facility] [address] [place] [address], [facility] [phone] * TISSUE TRANSGLUTAMINASE AB IGA (02/24/2019 3:52 PM CLIENT SERVICE MANAGER) [facility] TTG Antibody IgA <2 0 - 3 U/mL 02/26/2019 3:08 PM CLIENT SERVICE MANAGER [facility] ([facility]) Comment: ?Negative ?0 - ??3 ?Weak Positive ?? 4 - 10 ?Positive ? >10 Tissue Transglutaminase (tTG) has been identified as the endomysial antigen. ??Studies have demonstr- ated that endomysial IgA antibodies have over 99% specificity for gluten sensitive enteropathy. Blood BLOOD SPECIMEN / Unknown Lab Venipuncture / Unknown 02/24/2019 3:52 PM CLIENT SERVICE MANAGER 02/24/2019 4:22 PM CLIENT SERVICE MANAGER Narrative [facility] ([facility]) - 02/26/2019 3:08 PM CLIENT SERVICE MANAGER Performed at: ??01 - [facility] [address] [place], [place] ??[id number] Bag Making Machine Tender: Frank Calderon PhD, Phone: ??[phone] Mara Latif MD LAB - SEROLOGY ORD ERABLES [facility] ([facility]) [address] [place] [address], [facility] * (ABNORMAL) HEMOGLOBIN ELECTROPHORESIS (02/24/2019 3:52 PM CLIENT SERVICE MANAGER) Interpretation Hemoglobin Pattern Abnormal Pattern(A) Normal Pattern 02/26/2019 3:51 PM [facility] Comment: Capillary hemoglobin (Hb) electrophoresis shows three [...] by acid gel electrophoresis. Rosanna Harman PhD, [facility] Clinical [employer] Tender [employer] *The electrophoresis pattern and the interpretation have been reviewed and verified by the teaching physician. Hemoglobin A 88.2(L) 97.0 - 98.2 % 02/26/2019 3:51 PM [facility] Hemoglobin A2 4.7(H) 1.8 - 3.0 % 02/26/2019 3:51 PM [facility] Hemoglobin F 7.1(H) <2.0 % 02/26/2019 3:51 PM CLIENT SERVICE MANAGER [facility] Blood BLOOD SPECIMEN / Unknown Lab Venipuncture / Unknown 02/24/2019 3:52 PM CLIENT SERVICE MANAGER 02/24/2019 4:22 PM CLIENT SERVICE MANAGER Mara Latif MD LAB - CHEMISTRY OR DERABLES Performing Organization Address [facility]/State/[facility] Co de Phone Number [facility] [address] [phone] documented in this encounter Visit Diagnoses Diagnosis Microcytic anemia Iron deficiency anemia, unspecified Diarrhea, unspecified type documented in this encounter Care Teams Weight Loss Centre Manager Relationship Specialty Start Date End Date Demar Campbell MD [address] [facility] [address] [place] [address] PCP - General 08/08/17 documented as of this encounter
--- OUTSIDE RECORDS SUMMARY | 2024-03-19 00:52 | XMS_ITS | Encounter Summary ---
Author Organization [facility] Address [address] [facility] [place] [address] Care Team Providers Care Conservation Specialist Name Role Phone Demar Campbell MD Primary Care Provider [phone] Reason for Visit * Radiology Services (Routine) - Closed Specialty Diagnoses / Procedures Referred By Contac t Referred To Contact MRI Diagnoses Ulcerative pancolitis without complication (HCC) Procedures MRI ENTEROGRAPHY Mara Latif MD Need updated address [facility] Mri [address] [place] [address] Referral ID Status Reason Start Date Expiration Date Visits Re quested Visits Authorized [id number] Closed 03/30/2019 05/13/2019 1 1 Encounter Details Date Type Department Care Team (Latest Contact Info) Description 04/07/2019 1:15 PM NUCLEAR SCIENTIST - 04/07/2019 11:59 PM [facility] Hospital Encounter [facility] MRI [address] [place] [address] Mara Latif MD Need updated address Discharge [...] st Contact Info) Description 04/09/2024 8:00 AM NUCLEAR SCIENTIST Office Visit [facility] - GI [address] [place] [phone] Gigi Bueno MD [address] [place] [address] [place] [address] 07/01/2024 1:30 PM CDT Office Visit [facility] - GI [address] [place] [phone] Milka Soni MD [facility] [place] [address] 08/02/2024 9:30 AM CDT Appointment [facility] [address] [place] [address] Linda Dueñas MD [address] [place] [address] 08/02/2024 10:30 AM CDT Office Visit [facility] - General Surgery [address] [place] [address] Linda Dueñas MD [address] [place] [address] 02/07/2025 10:30 AM NUCLEAR SCIENTIST Appointment [facility] [address] [place] [address] Linda Dueñas MD [address] [place] [address] 02/07/2025 11:00 AM NUCLEAR SCIENTIST Office Visit [facility] - General Surgery [address] [place] [phone] Linda Dueñas MD [address] [facility] [place] [address] documented as of this encounter Procedures Procedure Name Priority Date/Time Associated Diagnosis Comments MRI ENTEROGRAPHY Routine 04/07/2019 3:35 PM NUCLEAR SCIENTIST Ulcerative pancolitis without complication (HCC) CREATININE BLOOD - POCT (IP) [facility] Routine 04/07/2019 1:51 PM NUCLEAR SCIENTIST Ulcerative pancolitis without complication (HCC) documented in this encounter Results * MRI ENTEROGRAPHY (04/07/2019 3:35 PM NUCLEAR SCIENTIST) Anatomical Region Laterality Modality Magnetic Resonan ce, Magnetic Resonance 04/07/2019 3:23 PM NUCLEAR SCIENTIST Impressions 04/08/2019 9:18 AM NUCLEAR SCIENTIST IMPRESSION: 1. No small or large bowel abnormality identified. Mild stranding in the perirectal fat may represent inflammatory reaction. 2. 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 Dictated by Gigi Simms MD (resident surgeon). I, Dr. JUNE NAVA M.D. have personally reviewed and interpreted this examination/study. This report was electronically signed by JUNE NAVA M.D. ??on 04/08/2019 9:18 AM . Narrative 04/08/2019 9:18 AM NUCLEAR SCIENTIST EXAMINATION: Magnetic resonance imaging (MRI) abdomen and [...] cavernous transformation. Dictated by Gigi Simms MD (resident surgeon). I, Dr. JUNE NAVA M.D. have personally reviewed and interpreted this examination/study. This report was electronically signed by JUNE NAVA M.D. on04/08/2019 9:18 AM . Mara Latif MD MR ORDERABLES * (ABNORMAL) CREATININE BLOOD - POCT (IP) [facility] (04/07/2019 1:51 PM NUCLEAR SCIENTIST) Creatinine POCT 1.14 0.3 - 1.3 mg/dL [facility] POCT TESTING eGFR POCT 59(A) 60 ml/min [facility] POCT TESTING Blood BLOOD SPECIMEN / Unknown 04/07/2019 1:51 PM NUCLEAR SCIENTIST Mara Latif MD LAB - POINT OF CAR E ORDERABLES [facility] POCT TESTING [address] [phone] documented in this encounter Visit Diagnoses Diagnosis Ulcerative pancolitis without complication (HCC) documented in this encounter Administered Medications Inactive Administered Medications - up to 3 most recent administrations Medication Order MAR Action Action Date Dose Rate Site gadobenate dimeglumine (MULTIHANCE) injection Intravenous, CONTRAST ONCE, Starting on Fri04/07/19 at 1357, Until Kristina 04/08/19 at 0135 $ Given - Contrast 04/07/2019 3:17 PM NUCLEAR SCIENTIST 15 mL documented in this encounter Care Teams Conservation Specialist Relationship Specialty Start Date End Date Demar Campbell MD [address] [facility] 20 [place] [address] PCP - General 08/08/17 documented as of this encounter
--- OUTSIDE RECORDS SUMMARY | 2024-03-19 00:52 | XMS_ITS | Encounter Summary ---
Author Organization [facility] Address [address] [facility] [place] [address] Care Team Providers Care Migratory Worker Name Role Phone Demar Campbell MD Primary Care Provider [phone] Reason for Visit * Radiology Services (Routine) - Closed Specialty Diagnoses / Procedures Referred By Contac t Referred To Contact Mammography Diagnoses Lump or mass in breast Procedures MRI BREAST BILAT WO CONTRAST Linda Dueñas MD [address] [place] [address] [facility] Breast Center Op [address] [place] [address] Referral ID Status Reason Start Date Expiration Date Visits Re quested Visits Authorized [id number] Closed 05/05/2019 11/01/2019 1 1 Encounter Details Date Type Department Care Team (Latest Contact Info) Description 05/05/2019 12:00 PM INTELLECTUAL PROPERTY MANAGER - 05/05/2019 11:59 PM [facility] MRI [address] [place] [address] Linda Dueñas MD [address] [place] [address] Discharge Disposition: Home or Self [...] st Contact Info) Description 04/09/2024 8:00 AM INTELLECTUAL PROPERTY MANAGER Office Visit [facility] - GI [address] [place] [phone] Gigi Bueno MD [address] [place] [address] [place] [address] 07/01/2024 1:30 PM CDT Office Visit [facility] - GI [address] [place] [phone] Milka Soni MD [address] [place] [address] 08/02/2024 9:30 AM CDT Appointment [facility] [address] [place] [address] Linda Dueñas MD [address] [place] [address] 08/02/2024 10:30 AM CDT Office Visit [facility] - General Surgery [address] [place] [phone] Linda Dueñas MD [address] [place] [address] 02/07/2025 10:30 AM INTELLECTUAL PROPERTY MANAGER Appointment [facility] [address] [place] [address] Linda Dueñas MD [address] [place] [address] 02/07/2025 11:00 AM INTELLECTUAL PROPERTY MANAGER Office Visit [facility] - General Surgery [address] [place] [phone] Linda Dueñas MD [address] [place] [address] documented as of this encounter Procedures Procedure Name Priority Date/Time Associated Diagnosis Comments MRI BREAST BILAT WWO CONTRAST Routine 05/10/2019 11:06 AM INTELLECTUAL PROPERTY MANAGER BRCA2 positive MRI BREAST BILAT WO CONTRAST Routine 05/05/2019 3:11 PM INTELLECTUAL PROPERTY MANAGER Lump or mass in breast CREATININE BLOOD - POCT (IP) [facility] Routine 05/05/2019 1:29 PM INTELLECTUAL PROPERTY MANAGER BRCA2 positive documented in this encounter Results * MRI BREAST BILAT WWO CONTRAST (05/10/2019 11:06 AM INTELLECTUAL PROPERTY MANAGER) Anatomical Region Laterality Modality Breast Bilateral Magnetic Resonan ce 05/10/2019 2:10 PM INTELLECTUAL PROPERTY MANAGER Impressions 05/10/2019 3:19 PM INTELLECTUAL PROPERTY MANAGER IMPRESSION: Limited evaluation due to to marked [...] 3:19 PM . Narrative 05/10/2019 3:19 PM INTELLECTUAL PROPERTY MANAGER BILATERAL BREAST MRI HISTORY: ??33-year-old with a BRCA2 mutation referred for annual high risk screening breast MRI. She is breast-feeding her 2-year-old twins. She underwent breast MRI at [facility] on 10/23/2016. A 3 mm enhancing focus in the central left breast was identified and considered indeterminate. MR guided biopsy was recommended. However, biopsy was not performed because the patient became . On the 11/25/2017 breast imaging report from [facility], bilateral breast MRI was recommended for high-risk screening as well as to reassess the indeterminate focus in the left breast and to assist in assessing the right breast mass identified on mammography and ultrasound. On 12/25/2017, she underwent breast MRI at [facility]. It was considered limited due to [...] was processed by and interpreted on a [employer] room service food server including 3-D volume rendering, subtraction image processing [...] BREAST BILAT WO CONTRAST (05/05/2019 3:11 PM INTELLECTUAL PROPERTY MANAGER) Anatomical Region Laterality Modality Breast Bilateral Magnetic Resonan ce 05/10/2019 2:10 PM INTELLECTUAL PROPERTY MANAGER Impressions 05/10/2019 3:19 PM INTELLECTUAL PROPERTY MANAGER IMPRESSION: Limited evaluation due to to marked [...] 3:19 PM . Narrative 05/10/2019 3:19 PM INTELLECTUAL PROPERTY MANAGER BILATERAL BREAST MRI HISTORY: ??33-year-old with a BRCA2 mutation referred for annual high risk screening breast MRI. She is breast-feeding her 2-year-old twins. She underwent breast MRI at [facility] on 10/23/2016. A 3 mm enhancing focus in the central left breast was identified and considered indeterminate. MR guided biopsy was recommended. However, biopsy was not performed because the patient became . On the 11/25/2017 breast imaging report from [facility], bilateral breast MRI was recommended for high-risk screening as well as to reassess the indeterminate focus in the left breast and to assist in assessing the right breast mass identified on mammography and ultrasound. On 12/25/2017, she underwent breast MRI at [facility]. It was considered limited due to [...] was processed by and interpreted on a Utility [employer] room service food server including 3-D volume rendering, subtraction image processing [...] ORDERABLES * CREATININE BLOOD - POCT (IP) [facility] (05/05/2019 1:29 PM INTELLECTUAL PROPERTY MANAGER) Creatinine POCT 0.88 0.3 - 1.3 mg/dL [facility] POCT TESTING eGFR POCT 60 60 ml/min [facility] POCT TESTING Blood BLOOD SPECIMEN / Unknown 05/05/2019 1:29 PM INTELLECTUAL PROPERTY MANAGER Linda Dueñas MD LAB - POINT OF CARE ORDERABLES [facility] POCT TESTING [address] [phone] documented in this encounter Visit Diagnoses Diagnosis BRCA2 positive Genetic susceptibility to malignant neoplasm of breast Lump or mass in breast documented in this encounter Care Teams Migratory Worker Relationship Specialty Start Date End Date Demar Campbell MD [address] [facility] 20 [place] [address] PCP - General 08/08/17 documented as of this encounter
--- OUTSIDE RECORDS SUMMARY | 2024-03-19 00:52 | XMS_ITS | Encounter Summary ---
Author Organization [facility] Address [address] [place] [address] Care Team Providers Care Marketing Assistant Name Role Phone Demar Campbell MD Primary Care Provider Reason for Visit * Radiology Services (Routine) - Closed Specialty Diagnoses / Procedures Referred By Contac t Referred To Contact Mammography Diagnoses BRCA2 positive Procedures MRI BREAST BILAT WWO CONTRAST Linda Dueñas MD [address] [place] [address] [facility] Breast Center Op [address] [place] [address] Referral ID Status Reason Start Date Expiration Date Visits Re quested Visits Authorized [id number] Closed 04/26/2019 06/10/2019 2 2 Encounter Details Date Type Department Care Team (Latest Contact Info) Description 05/10/2019 10:00 AM SOFTWARE PROJECT ENGINEER - 05/10/2019 11:59 PM [facility] Hospital Encounter [facility] MRI [address] [place] [phone] Linda Dueñas MD [address] [place] [address] Discharge Disposition: Home or Self [...] Contact Info) Description 04/09/2024 8:00 AM SOFTWARE PROJECT ENGINEER Office Visit [facility] - GI [address] [place] [phone] Gigi Bueno MD [address] [place] [address] [place] [address] 07/01/2024 1:30 PM CDT Office Visit [facility] - GI [address] [place] [phone] Milka Soni MD [facility] [place] [address] 08/02/2024 9:30 AM CDT Appointment [facility] [address] [place] [address] Linda Dueñas MD [address] [place] [address] 08/02/2024 10:30 AM CDT Office Visit [facility]ician [facility] - General Surgery [address] [place] [phone] Linda Dueñas MD [address] [place] [address] 02/07/2025 10:30 AM SOFTWARE PROJECT ENGINEER Appointment [facility] [address] [place] [address] Linda Dueñas MD [address] [place] [address] 02/07/2025 11:00 AM SOFTWARE PROJECT ENGINEER Office Visit [facility] - General Surgery [address] [place] [phone] Linda Dueñas MD [address] [place] [address] documented as of this encounter Procedures Procedure Name Priority Date/Time Associated Diagnosis Comments MRI BREAST BILAT WWO CONTRAST Routine 05/10/2019 11:06 AM SOFTWARE PROJECT ENGINEER BRCA2 positive documented in this encounter Visit Diagnoses Not on filedocumented in this encounter Administered Medications Inactive Administered Medications - up to 3 most recent administrations Medication Order MAR Action Action Date Dose Rate Site gadobutrol (GADAVIST) injection Intravenous, CONTRAST ONCE, Starting on 05/10/19 at 1006, Until Fri05/11/19 at 0136 $ Given - Contrast 05/10/2019 11:06 AM SOFTWARE PROJECT ENGINEER 6 mL documented in this encounter Care Teams Marketing Assistant Relationship Specialty Start Date End Date Demar Campbell MD [address] [facility] [address] [place] [address] PCP - General 08/08/17 documented as of this encounter
--- OUTSIDE RECORDS SUMMARY | 2024-03-19 00:52 | XMS_ITS | Encounter Summary ---
Author Organization [facility] Address [address] [facility] [place] [address] Care Team Providers Care Helicopter Pilot Instructor Name Role Phone Demar Campbell MD Primary Care Provider [phone] Reason for Visit * Reason Onset Date Comments Results 04/19/2019 Encounter Details Date Type Department Care Team (Late Contact Info) Description 04/19/2019 Telephone [facility] [address] [place] [address] Mara Latif MD Need updated address Results [...] Telephone Encounter - Mara Latif MD - 04/19/2019 10:35 AM PRODUCTION HAND Called patient and discussed with her results of her MRE and that after reviewing, all her records she always had a rectal ulcer that was indeterminate for IBD and did not have pancolitis on previousColonoscopy. She reports to me straining occasional manual disimpaction and sitting for long time on commode. Discussed with her concerns for SRUS and rectal prolapse. Discussed with her plan for MR defecography and gave her number to schedule test with radiology. Also educated her about avoidance of straining or anal digitation, minimization of time on the commode, and consumption of a high-fiber diet UCTION HAND documented in this encounter Plan of Treatment Upcoming Encounters Date Type Department Care Team (Late st Contact Info) Description 04/09/2024 8:00 AM PRODUCTION HAND Office Visit [facility] Physician Group - GI [address] [place] [phone] Gigi Bueno MD [address] [place] [address] [place] [address] 07/01/2024 1:30 PM CDT Office Visit [facility] Physician [facility] - GI [address] [place] [phone] Milka Soni MD [address] [place] [address] 08/02/2024 9:30 AM CDT Appointment [facility] MRI [address] [place] [address] Linda Dueñas MD [address] [place] [address] 08/02/2024 10:30 AM CDT Office Visit [facility] Physician Group - General Surgery [address] [place] [phone] Linda Dueñas MD [address] [place] [address] 02/07/2025 10:30 AM PRODUCTION HAND Appointment [facility] [address] [place] [address] Linda Dueñas MD [address] [place] [address] 02/07/2025 11:00 AM PRODUCTION HAND Office Visit [facility] - General Surgery [address] [place] [address] Linda Dueñas MD [address] SURGERY DEPARTMENT [place], [place] [phone] documented as of this encounter Visit Diagnoses Not on filedocumented in this encounter Care Teams Helicopter Pilot Instructor Relationship Specialty Start Date End Date Demar Campbell MD [address] [facility] [address] [facility] 20 [place] [address] PCP - General 08/08/17 documented as of this encounter
--- OUTSIDE RECORDS SUMMARY | 2024-03-19 00:52 | XMS_ITS | Encounter Summary ---
Author Organization [facility] Address [address] [place] [address] Care Team Providers Care Barrel Waterer Name Role Phone Demar Campbell MD Primary Care Provider [phone] Reason for Visit * Reason Comments Breast Mass lesion in breast Encounter Details Date Type Department Care Team (Late st Contact Info) Description 03/24/2019 1:00 PM EXAMINATION GRADER Office Visit [facility] General Surgery [address] [place] [address] Linda Dueñas MD [address] [facility] [address] BRCA2 positive (Primary Dx) Social History [...] Sign Reading Time Taken Comments Blood Pressure 111/72 03/27/2019 12:47 PM EXAMINATION GRADER Pulse 72 03/27/2019 12:47 PM EXAMINATION GRADER Temperature 36.5 ??C (97.7 ??F) 03/27/2019 12:[address] Respiratory Rate 16 03/27/2019 12:47 PM EXAMINATION GRADER Oxygen Saturation 100% 03/27/2019 12:47 PM EXAMINATION GRADER Inhaled Oxygen Concentration - - Weight 66.2 kg (146 lb) 03/27/2019 12:47 PM EXAMINATION GRADER Height 165.1 cm (5' 5 ) 03/27/2019 12:47 PM EXAMINATION GRADER Body Mass Index 24.3 03/27/2019 12:47 PM EXAMINATION GRADER documented in this encounter Functional Status Functional [...] this encounter Patient Instructions * Patient Instructions* Ivon Coyle RN - 03/24/2019 2:05 PM EXAMINATION GRADER We will call you with the plan on an ultrasound. Please notify our office at [phone] when you have completed breast feeding so we may obtain a Breast MRI INATION GRADER documented in this encounter Progress Notes * Linda Dueñas MD - 03/24/2019 1:00 PM CST Patient Name: Tessy Medina : 1985 Chief Complaint Patient presents with ??? Breast Mass lesion in breast HISTORY OF PRESENT ILLNESS: Tessy Medina is a 33 year old female with a history of ulcerative colitis (previously on remicaid- no medication currently) and known BRCA2 mutation who presents to establish care for breast cancer screening as her insurance recently changed. She has previously been followed at [facility] by Dr. Villaseñor and Marielos Saucedo APRN for breast cancer screening. Her history is as follows: - 2016: First noted a right breast mass. Breast imaging was negative - 2016: genetic testing performed after mother was diagnosed with ovarian cancer -- positive for BRCA2 mutation. Sister is also BRCA2 positive - Bilateral breast MRI performed 10/2016: an enhancing left central breast mass was noted (BIRADS-4) - Patient became with twins prior to planned biopsy of this area (delivered in May 2017) - Bilateral diagnostic mammogram 11/25/17 ([facility]): Oval circumscribed mass in the lateral right breastmay represent changes, fibroadenoma, or lactating adenoma (measures 2x0.9x0.9cm). BIRADS-3 - Right breast ultrasound ([facility]) 11/25/17: multiple dilated lymphatics and changes of are with benign appearing cystic vs lactational change in the lateral right breast at the 10:00 position 11cm from the nipple measuring 1.8x0.4x0.5cm. BIRADS-3 - Bilateral breast MRI performed 12/29/17: no MRI correlate for the 2cm circumscribed mass in the right lateral breast (seen on mammogram and ultrasound -- read shows possible changes, fibroadenoma, or lactating adenoma) and the previously seen 3mm enhancing left breast mass is not seen secondary to background parenchymal enhancement related to (recommended for further evaluation after she finishes ) Today she does not feel any breast masses and has not noted any nipple discharge other than milk asshe is still . She has no overlying skin changes. She has not had any breast imaging since the MRI performed in 12/2017 as she continues to breastfeed her twins. She presents today for further evaluation and treatment recommendations. ALLERGIES: No Known Allergies PAST MEDICAL HISTORY: Past Medical History: Diagnosis Date ??? BRCA2 positive ??? Ulcerative colitis PAST SURGICAL HISTORY: Past Surgical History: Procedure Laterality Date ??? Section 2017 ??? COLONOSCOPY N/A 12/29/2018 N/A; COLONOSCOPY DIAGNOSTIC ??? ENDOSCOPY, UPPER N/A 12/29/2018 N/A; ESOPHAGOGASTRODUODENOSCOPY (EGD) DIAGNOSTIC MEDICATIONS: No current outpatient medications on file. No current facility-administered medications for this visit. FAMILY HISTORY: Family History Problem Relation Name Age of Onset ??? Cancer - Ovarian Mother ??? Cancer - Prostate Maternal Uncle ocbar ??? Cancer - Liver Maternal Uncle hasan Her mother was diagnosed with ovarian cancer at 58 years old. No history of breast cancer. SOCIAL HISTORY: Social History Tobacco Use ??? Smoking status: Current Some Day Smoker ??? Smokeless tobacco: Never Used Substance Use Topics ??? Alcohol use: Yes Comment: rare ??? Drug use: Never She stays home with her 4 children. GYNECOLOGIC HISTORY: Menarche at age 14 years Last menstrual period 06/2017 with first delivery at age 21 years History of ? - yes, breastfed all children for 2 years and is still her kids History of OCP use? - uses mirena (no OCP) History of HRT use? - no REVIEW OF SYSTEMS Constitutional: no fevers, chills, fatigue or hot flashes Eyes: no cataracts, no glasses/contacts ENMT: no hearing loss, no hearing aid, no swallowing difficulties or sore throat Cardiovascular: no chest pain, no history of heart problems Respiratory: no shortness of breath, no cough GI: no abdominal pain, no nausea, no diarrhea or constipation Musculoskeletal: no arthritis, no back pain Neurological: no headaches Psychiatric: no anxiety, no depression : no change in libido, no dyspareunia, no vaginal dryness PHYSICAL EXAM BP 111/72 Pulse 72 Temp 97.7 ??F (36.5 ??C) Resp 16 Ht 5' 5 (1.651 m) Wt 146 lb (66.2 kg) SpO2 100% BMI 24.3 kg/m2 General: alert, cooperative, in no distress Eyes: conjunctiva and lids normal ENT/Mouth: neck supple, no visible oral lesions Respiratory: unlabored respirations CV: regular heart rate Abd: soft, non-tender, non-distended Musculoskeletal: warm with no deformities On breast exam in both the upright and supine positions, she has symmetrical ptotic breasts that are of normal contour and shape. No palpable abnormalities in the right breast. In the left breast - there is an approximately 3mm nodule that seems dermal based in the medial left breast along the sternum as well as an approximately 0.5x0.5cm upper outer mass with possible central pit consistent withsebaceous cyst. No nipple retraction or discharge. No cervical, supraclavicular or axillary lymphadenopathy bilaterally. RADIOLOGY REVIEW: Bilateral diagnostic mammogram ([facility]) 11/25/17: Oval circumscribed mass in the lateral right breast may represent changes, fibroadenoma, or lactating adenoma (measures 2x0.9x0.9cm) BIRADS-3 Right breast ultrasound ([facility]) 11/25/17: Multiple dilated lymphatics and changes of are with benign appearing cystic vs lactational change in the lateral right breast at the 10:00 position 11cm from the nipple measuring 1.8x0.4x0.5cm BIRADS-3 Bilateral breast MRI ([facility]) 12/29/17: The previously described indeterminate 3mm enhancing focus in the central left breast is not appreciated secondary to complete obscuration of the background parenchymal enhancement due to . There is no MRI correlate for the oval mass seen on mammo/ultrasound Repeat MRI recommended following completion of BIRADS-2 PATHOLOGY REVIEW: None DIAGNOSIS: 33 year old female with a BRCA2 mutation who presents for breast cancer screening PLAN: -- We discussed the implications of a BRCA2 genetic mutation in terms of future breast cancer development. She is aware that the data suggests she has a greater than 60-80% lifetime risk of breast cancer development. Options for management include either high risk surveillance with a breast MRI yearly in combination with once yearly mammogram/ultrasound. We also discussed the option of bilateral prophylactic mastectomies. At this point, she would like to continue to undergo high risk screening -- We will have her previous images from [facility] loaded in the system for internal review -- She is not sure when she plans to finish . Will discuss with breast imaging regarding timing for next breast MRI. Plan to obtain left breast ultrasound to evaluate the two likely dermal based lesions in the left breast --We also discussed the increased risk of ovarian cancer development with this mutation--she is aware that the general population risk of ovarian cancer is only 1.4%, whereas in BRCA2 patients it canbe up to 30%. She reports that her injection molding machine setter is already performing ovarian cancer screening --We also discussed the importance of a healthy lifestyle--minimizing sun exposure and wearing sunscreen, continuing with a healthy diet and regular exercise and complete avoidance of any tobacco products -- I will contact her following discussion with breast imaging regarding timing in relation to breast feeding. She will contact our office when she decides to stop --I will see her again in 6 months for a clinical exam. she will continue with monthly self exams in the interim; she was advised to return sooner if she would notice a change in her exam or with anyquestions or concerns. Over 45 minutes were spent on today's visit with over half in face to face counseling. Linda Dueñas MD Date of service 03/24/2019 INATION GRADER documented in this encounter Plan of Treatment Upcoming Encounters Date Type Department Care Team (Late st Contact Info) Description 04/09/2024 8:00 AM EXAMINATION GRADER [facility] [address] [place] [phone] Gigi Bueno MD [address] [place] [address] [place] [address] 07/01/2024 1:30 PM CDT Office Visit [facility] - GI [address] [place] [phone] Milka Soni MD [address] [place] [phone] 08/02/2024 9:30 AM CDT Appointment [address] [phone] Linda Dueñas MD [address] [place] [address] 08/02/2024 10:30 AM CDT Office Visit [facility] - General Surgery [address] [place] [phone] Linda Dueñas MD [address] [facility] [place] [address] 02/07/2025 10:30 AM EXAMINATION GRADER Appointment [address] [phone] Linda Dueñas MD [address] [place] [address] 02/07/2025 11:00 AM EXAMINATION GRADER [facility] Surgery [address] [place] [phone] Linda Dueñas MD [address] [place] [address] documented as of this encounter Visit Diagnoses Diagnosis BRCA2 positive- Primary Genetic susceptibility to malignant neoplasm of breast documented in this encounter Care Teams Barrel Waterer Relationship Specialty Start Date End Date Demar Campbell MD [address] [facility] [address] [facility] [address] [place] [phone] PCP - General 08/08/17 documented as of this encounter
--- OUTSIDE RECORDS SUMMARY | 2024-03-19 00:52 | XMS_ITS | Encounter Summary ---
Author Organization [facility] Address [address] [place] [address] Care Team Providers Care Automotive Metalsmith Name Role Phone Demar Campbell MD Primary Care Provider [phone] Reason for Referral * Radiology Services (Routine) - Closed Specialty Diagnoses / Procedures Referred By Contac t Referred To Contact MRI Diagnoses Ulcerative pancolitis without complication (HCC) Procedures MRI ENTEROGRAPHY Mara Latif MD Need updated address [facility] Mri [address] [place] [address] Referral ID Status Reason Start Date Expiration Date Visits Re quested Visits Authorized [id number] Closed 03/30/2019 05/13/2019 1 1 ICAL INFORMATICS PHYSICIAN Reason for Visit * Reason Comments Ulcerative Colitis Encounter Details Date Type Department Care Team (Late st Contact Info) Description 02/24/2019 1:40 PM CLINICAL INFORMATICS PHYSICIAN Office Visit [facility] GI [address] [place], [place] [phone] Mara Latif MD Need updated address Microcytic anemia (Primary Dx); Ulcerative pancolitis without complication (HCC); Diarrhea, unspecified type Social History Tobacco Use [...] Sign Reading Time Taken Comments Blood Pressure 97/56 02/24/2019 1:35 PM CLINICAL INFORMATICS PHYSICIAN Pulse 63 02/24/2019 1:35 PM CLINICAL INFORMATICS PHYSICIAN Temperature 36.4 ??C (97.6 ??F) 02/24/2019 1:35 PM CS T Respiratory Rate 18 02/24/2019 1:35 PM CLINICAL INFORMATICS PHYSICIAN Oxygen Saturation 100% 02/24/2019 1:35 PM CLINICAL INFORMATICS PHYSICIAN Inhaled Oxygen Concentration - - Weight 65.5 kg (144 lb 6.4 oz) 02/24/2019 1:35 P M CLINICAL INFORMATICS PHYSICIAN Height 165.1 cm (5' 5 ) 02/24/2019 1:35 PM CLINICAL INFORMATICS PHYSICIAN Body Mass Index 24.03 02/24/2019 1:35 PM CLINICAL INFORMATICS PHYSICIAN documented in this encounter Functional Status Functional [...] this encounter Patient Instructions * Patient Instructions* Georges Montes CPC - 02/24/2019 2:25 PM CLINICAL INFORMATICS PHYSICIAN Thank you for entrusting your healthcare to the physicians and other specialists at the [facility] clinic today. Following your visit, you may receive a Press Ganey survey via email or U.S. Mail. We encourage youto respond to this confidential survey about your care. Your feedback helps us to provide quality service at every visit. Thank you for your help in making our practice meet higher expectations. Contact information: To reach the clinic please call (8 am to noon, 1 to 4:30 pm weekdays). Press 1 to make schedule or cancel an appointment Press 2 for pharmacy refills Press 3 to speak with my nurse Viry Borrego RN regarding a change in your condition. Many times your nurse may be busy seeing patients in clinic. In order to meet your needs timely we have implemented a nurse triage line to take your calls. We are closed from 02-14 for lunch After hours please call (hospital main number), ask the gin pole operator to call the gastroenterology fellow protection officer. Emergency; call [phone] or go to your closest emergency room. The following information and instructions are from your visit today. IMPORTANT 1. Rheumatology referral to [facility] please schedule appointment today 2. Referral to breast surgeon please make appointment today 1. Labs today 2. Stool for calprotcetin 3. Continue to take folic acid 1 mg daily 4. Start Vitamin d 58458 units every week for 8 weeks after completing this you can take over the counter vitamin D 100 unit daily 5. MR enterography 6. Smoking cessation 3. We will plan to see you back in clinic in approx 2 months, but please feel free to contact us inthe interim with any questions/concerns. Sincerely, Mara Latif MD You are scheduled for a(n) MRI ENTEROGRAPHY on 04-02-2019, at 10:00 a.m. Please arrive at 09:30 a.m.Do not eat or drink 8 hours before your procedure. 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 *If you have any questions, concerns or need to cancel and reschedule please call the scheduling department at [phone]. ICAL INFORMATICS PHYSICIAN documented in this encounter Progress Notes * Mara Latif MD - 02/24/2019 2:10 PM CST Images from the original note were not included. [facility] Mara Latif MD Name: Tessy Medina PCP: Demar Campbell MD Reason For Referral/Chief Complaint: Follow up for Ulcerative colitis HPI: Ms. Daryl Medina is a 33 year old yo female White/ with history of yoder UC, IBD arthropathy, PE during , microcytic anemia, BRCA 2 positive gene who presents today to clinic for follow up on Ulcerative colitis. At today's visit she reports last week she started having abdominal pain, different than her LLQ pain, that is more diffuse associated with nausea and bloating, this has been happenning more often. She is having 4 to5 BMs loose or formed. She reports to me that she needs to use the restroom every 2to 3 hours to feel that she emptied her rectum. Reports blood in stools 2 to 3 days a day.Occasional nocturnal Bms two or three times a week. Reports urgency. No N/V Reports fatigue and diffuse body pain that occurs every 3 to 4 months. She reports to me did not have jpint pain prior to remicade infusion, reports previous leg and back pain could have been relatedto Occasional smoking. Since last visit reports her kid through her vitamin D and did not take it, is not taking folic acid daily. Previous GI clinic visit At today's visit she reports she has 3 to 4 Bms a day loose with blood, two weeks ago she started having 10 bloody BMs a day loose and watery, 50 % has blood, with left sided abdominal pain with occasional stabbing pain. Reports urgency. No fever or chills. 1 to 2 Nocturnal BMs. Reports fatigue anddizziness. Some nausea, no vomiting. No heartburn, no dysphagia or odynophagia. Reports some pain in the left lower extremity. Reports joint pain. No skins rashes. NO eyes issues.Reports weak eyesight She also reports she was evaluated in ED in July [address] abdomen and pelvis and told she has portal HTN with subsequent negative liver workup no records. IBD history: Apparently she was diagnosed in 2014 during a routine colonoscopy for evaluation of anemia and fatigue. She was sartetd on mesalamine products (lialda and Apriso). She got and [facility] and was followed by Dr Gomez. She was started Remicade in December 2016 and was doing well. She delivered in May 2017 and had three infusions afterwards and then developed joint pain and stiffness after the infusion so she stopped taking it. Reports her UC was better while on Remicade. Had premature delivery at 34 weeks with twins but started to have contractions at 28 weeks She had an Infliximab level Apr 2017 was 9,7 no Ab. She was last seen in clinic in August 2017 and was planned to recheck remicade level and her dose was escalated to 10 mg/kg due to persistent mild symptoms. It appears that her last infusion was in December 2017 and she no showed her February infusion appointment. She was also supposed to get infliximab level drawn but did not complete that She now has an IUD (confidential). No NSAIDs use She is still and her babies are 18 months. IBD history Date of diagnosis: 2014 in the setting of anemia and fatigue Extent of disease at time of diagnosis: Current disease location: Pancolitis Current medical therapy: None Previous medical therapy: Lialda, Apriso Previous steroid use: none Last colonoscopy: Flex sig 12/2016 with large rectal ulcer Dominguez 2 Previous surgeries related to IBD: Drug adverse events: Joint pain with remicade Extraintestinal manifestations: Joint pain Family hx of IBD: none Family hx of colon cancer: none Smoking status: no Mother with ovarian cancer at 58 M uncle prostate cancer at late 50s ROS: Gen: No weight loss, fevers, chills, or sweats. Normal appetite. Skin: No rashes, new lesions, No bruise HEENT: No yellowing of eyes or skin. No mouth sores CVS: No chest pain or palpitations. Respiratory: No cough,No Sputum, No hemoptysis, No SOB, No KRUSE GI: See HPI Musculoskeletal : No swelling or pain. Neuro: No confussion or drowsiness, Psych: No depression, anxiety. Exrem: No edema All other systems negative unless otherwise stated. Medical History: I updated the electronic medical records of any updates in patients medical, social, and family hx. PMH: Ulcerative colitis Pulmonary embolism IBD arthropathy Microcytic anemia PSH: C section Social History Socioeconomic History ??? Marital status: Spouse name: Not on file ??? Number of children: Not on file ??? Years of education: Not on file ??? Highest education level: Not on file Occupational History ??? Not on file Social Needs ??? Financial resource strain: Not on file ??? Food insecurity: Worry: Not on file Inability: Not on file ??? Transportation needs: Medical: Not on file Non-medical: Not on file Tobacco Use ??? Smoking status: Current Some Day Smoker ??? Smokeless tobacco: Never Used Substance and Sexual Activity ??? Alcohol use: Yes Comment: rare ??? Drug use: Never ??? Sexual activity: Not on file Lifestyle ??? Physical activity: Days per week: Not on file Minutes per session: Not on file ??? Stress: Not on file Relationships ??? Social connections: Talks on phone: Not on file Gets together: Not on file Attends judaism service: Not on file Active member of club or organization: Not on file Attends meetings of clubs or organizations: Not on file Relationship status: Not on file ??? Intimate partner violence: Fear of current or ex partner: Not on file Emotionally abused: Not on file Physically abused: Not on file Forced sexual activity: Not on file Other Topics Concern ??? Not on file Social History Narrative ??? Not on file No family history on file. Family Hx of GI Malignancy: None Family Hx of Liver Disease: None Family Hx of IBD (Crohn's, Ulcerative Colitis): None Allergies: Allergy Current meds: Current Outpatient Medications: ??? folic acid (FOLVITE) 1 MG tablet, Take 1 tablet by mouth once daily for 90 days, Disp: 90 tablet, Rfl: 0 Physical Exam: BP 97/56 (BP SITE: LEFT ARM, BP POSITION: SITTING, BP CUFF SIZE: 11) Pulse 63 Temp 97.6 ??F (36.4 ??C) (Oral) Resp 18 Ht 1.651 m (5' 5 ) Wt 65.5 kg (144 lb 6.4 oz) SpO2 100% BMI 24.03 kg/m2 Body mass index is 24.03 kg/m??. Gen: Comfortable, A&O x3 HEENT: Anicteric sclera, Neck: Supple Lungs: CTAB. Heart: RRR, Nl S1S2, - m,g,r Abdomen: Not distended, Bowel sounds are normal, Non-tender. Skin: No rashes noted Ext: No edema Musculoskeletal: Ambulates. Neurologic: Grossly nonfocal. Lab Data: Recent Labs Component Name 12/23/18 1132 WBC 7.7 HGB 10.3* Recent Labs Component Name 12/23/18 1132 MCV 69.9* Recent Labs Component Name 12/23/18 1132 NA 137 CL 105 CO2 26 BUN 12 CREATININE 0.5* Recent Labs Component Name 12/23/18 1132 AST 9 ALT 7 ALKPHOS 43 TBILI 0.9 ALB 4.0 Recent Labs Component Name 12/23/18 1132 CRP <0.5 !Error! . Vitamin D 28 Jul 2018 TSH normal Imaging: CT-scan of the abdomen 2017 IMPRESSION:?1.?Findings of concerning for endometritis with findings concerning for a uterine dehiscence with a small gas and fluid collection anterior to the incision. 2.?No pulmonary embolism. 3.?Small area of hypoattenuation within the liver in hepatic segment 5.?This is nonspecific and the differential diagnosis includes focal fat, or developing infection/abscess.?This could be further evaluated by abdominal MRI if clinically indicated. The results were communicated to Dr. NICHOLAS by Dr. Knight at 9:50 PM on 06/14/2017 ADDENDUM: This addendum is being placed on the report for a time dependent finding on a patient who is admitted to the hospital (Category 2B). 1.?There is mild cardiomegaly.?If clinically indicated this can be further evaluated by echocardiogram for post cardiomyopathy. 2.?The area of the hypoattenuation in the liver is strongly favored to represent focal fat, but the original differential diagnosis still applies. Previous Endoscopies: EGD Flex sig 12/2016 Large rectal ulcer Dominguez 2 Biopsies Chronic active clitis with ulceration Colonoscopy 2017 There is no immunization history on file for this patient. Assessment: Tessy Medina is a 33 year old female with history of yoder UC, IBD arthropathy, PE during , microcytic anemia, BRCA 2 positive gene who presents today to clinic for evaluation of Ulcerative colitis. 1. Yoder Ulcerative colitis diagnosed in 2014 (no records) failed mesalamine products escalated to Infliximab monotherapy in [address] Gomez did relatively well however had mild persistent symptoms requiring dose escalation to 10 mg/kg. She did experience significant joint pain with her last 2 infusions after delivery (May 2017) and subsequently stopped infliximab. I am concerned whether this was related to Antibody development to infliximab however she did not complete Ab testing at that time and in Apr 2017 her infliximab level was 9.8 with no Ab. Her most recent colonoscopy on 12/29/2018 showed a solitary rectal ulcer with bx negative for chronic inflammation, this was not typical of UC and would like to obtain more records of her initial colonoscopy as well as evaluate for CD with recent diffuse abdominal pain and bloating. I am concerned whether this is solitary rectal ulcer syndrome. I will obtain her 2014 records when she was diagnosed prior to initiating her on therapy. If this shows solitary rectal ulcer and no yoder colitis, she will likely benefit from evaluation ofrectal prolapse 2. BRCA 2 positive gene: Had a lesion on [facility]reat MRI from 12/2017 needs follow up with breast oncology surgery, [facility] 3. 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 Joint pain ? Related to IBD arthropathy,her records report hx of IBD arthropathy but she reportsshe did not have joint problems prior to remicade and that back and leg pain during were related to and her joint pain now is non specific and is not typical of IBD arthropathy 5. PE during 6. Complicated with delivery 7. Concerns of portal hypertension on recent CT, EGD with no sequela of protal HTN, normal liver enzymes, normal platelet count. Plan: 1. Rheumatology referral to [facility] 2. Referral to breast surgeon please make appointment today 1. Hemoglobin electrophoresis 2. Stool for calprotcetin 3. Continue to take folic acid 1 mg daily 4. Start Vitamin d 26034 units every week for 8 weeks after completing this you can take over the counter vitamin D 100 unit daily 5. MR enterography 6. Smoking cessation 7. Obtain records from 2014 Preventive measures: A. Bone health: 1. DEXA scan with dates: none 2. Vitamin D 25-OH level with dates: Obtain today B. Cancer screenin. Last colonoscopy: 2014 2. Annual surveillance colonoscopy 3. Annual skin exam by stone and concrete washer if on immunosuppression for non- melanoma skin cancer and screening for melanoma independent of the use of biologic therapy. Discussed today 4. Cervical cancer screening with annual PAP smears if female Discussed today C. Smoking cessation counselling: Non smoker D. Immunization: 1. Yearly flu vaccine with dates:Refused 2. Last pneumonia vaccine with dates:refused 3. Hepatitis B vaccination: Immune 4. Hepatitis A vaccination: Immune 5. Meningococcal meningitis vaccine: n/a 6. HPV vaccine (ages 9-26): n/a 7. MMR/Varicella: as a child 9. Herpes Zoster Vaccine: n/a 10. Diptheria and Pertussis: Up date with PCP F. Depression screening None today Return to clinic in 8 weeks Mara Latif MD Semiconductor Dies Loader Division of Gastroenterology and Hepatology ICAL INFORMATICS PHYSICIAN documented in this encounter Plan of Treatment Upcoming Encounters Date Type Department Care Team (Late st Contact Info) Description 04/09/2024 8:00 AM CLINICAL INFORMATICS PHYSICIAN Office Visit [facility] - GI [address] [place] [phone] Gigi Bueno MD [address] [place] [address] [place] [address] 07/01/2024 1:30 PM CDT [facility] [address] [place] [address], [place] [phone] Milka Soni MD [address] [place] [phone] 08/02/2024 9:30 AM CDT Appointment [facility] [address] [place] [phone] Linda Dueñas MD [address] [facility] [place] [address] 08/02/2024 10:30 AM CDT Office Visit [facility] - General Surgery [address] [place] [phone] Linda Dueñas MD [address] [facility] [place] [address] 02/07/2025 10:30 AM CLINICAL INFORMATICS PHYSICIAN Appointment [address] [address] Linda Dueñas MD [address] [facility] [place] [address] 02/07/2025 11:00 AM CLINICAL INFORMATICS PHYSICIAN [facility] [address] [place] [phone] Linda Dueñas MD [address] [facility] [place] [address] documented as of this encounter Results * MRI ENTEROGRAPHY (04/07/2019 3:35 PM CLINICAL INFORMATICS PHYSICIAN) Anatomical Region Laterality Modality Magnetic Resonan ce, Magnetic Resonance 04/07/2019 3:23 PM CLINICAL INFORMATICS PHYSICIAN Impressions 04/08/2019 9:18 AM CLINICAL INFORMATICS PHYSICIAN IMPRESSION: 1. No small or large bowel abnormality identified. Mild stranding in the perirectal fat may represent inflammatory reaction. 2. 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 Dictated by Gigi Simms MD (residential installer). I, Dr. JUNE NAVA M.D. have personally reviewed and interpreted this examination/study. This report was electronically signed by JUNE NAVA M.D. ??on 04/08/2019 9:18 AM . Narrative 04/08/2019 9:18 AM CLINICAL INFORMATICS PHYSICIAN EXAMINATION: Magnetic resonance imaging (MRI) abdomen and [...] cavernous transformation. Dictated by Gigi Simms MD (residential installer). I, Dr. JUNE NAVA M.D. have personally reviewed and interpreted this examination/study. This report was electronically signed by JUNE NAVA M.D. on04/08/2019 9:18 AM . Mara Latif MD MR ORDERABLES * IGA BLOOD (02/24/2019 3:52 PM CLINICAL INFORMATICS PHYSICIAN) Pathologist [facility] IgA 240 87 - 534 mg/dL 02/24/2019 5:[address] IN[address]ICS PHYSICIAN [facility] Blood BLOOD SPECIMEN / Unknown Lab Venipuncture / Unknown 02/24/2019 3:52 PM CLINICAL INFORMATICS PHYSICIAN 02/24/2019 4:22 PM CLINICAL INFORMATICS PHYSICIAN Mara Latif MD LAB - CHEMISTRY OR DERABLES [address] [phone] * TISSUE TRANSGLUTAMINASE AB IGA (02/24/2019 3:52 PM CLINICAL INFORMATICS PHYSICIAN) Pathologist [facility] TTG Antibody IgA <2 0 - 3 U/mL 02/26/2019 3:08 PM CLINICAL INFORMATICS PHYSICIAN [facility] ([facility]) Comment: ?Negative ?0 - ??3 ?Weak Positive ?? 4 - 10 ?Positive ? >10 Tissue Transglutaminase (tTG) has been identified as the endomysial antigen. ??Studies have demonstr- ated that endomysial IgA antibodies have over 99% specificity for gluten sensitive enteropathy. Blood BLOOD SPECIMEN / Unknown Lab Venipuncture / Unknown 02/24/2019 3:52 PM CLINICAL INFORMATICS PHYSICIAN 02/24/2019 4:22 PM CLINICAL INFORMATICS PHYSICIAN Narrative [facility] ([facility]) - 02/26/2019 3:08 PM CLINICAL INFORMATICS PHYSICIAN Performed at: ??01 - [facility] [address] [place], [place] ??[id number] Editorial Assistant: Frank Calderon PhD, Phone: ??[phone] Mara Latif MD LAB - SEROLOGY ORD ERABLES [facility] ([facility]) [address] [place] [address], [facility] * (ABNORMAL) HEMOGLOBIN ELECTROPHORESIS (02/24/2019 3:52 PM CLINICAL INFORMATICS PHYSICIAN) Interpretation Hemoglobin Pattern Abnormal Pattern(A) Normal Pattern [...] by acid gel electrophoresis. Rosanna Harman PhD, [facility] Clinical Assembler Body rn surgical pcu *The electrophoresis pattern and the interpretation have been reviewed and verified by the teaching physician. Hemoglobin A 88.2(L) 97.0 - 98.2 % 02/26/2019 3:51 PM [facility] Hemoglobin A2 4.7(H) 1.8 - 3.0 % 02/26/2019 3:51 PM [facility] Hemoglobin F 7.1(H) <2.0 % 02/26/2019 3:51 PM [facility] Blood BLOOD SPECIMEN / Unknown Lab Venipuncture / Unknown 02/24/2019 3:52 PM CLINICAL INFORMATICS PHYSICIAN 02/24/2019 4:22 PM CLINICAL INFORMATICS PHYSICIAN Mara Latif MD LAB - CHEMISTRY OR DERABLES [facility] [address] [place] [address] documented in this encounter Visit Diagnoses Diagnosis Microcytic anemia- Primary Iron deficiency anemia, unspecified Ulcerative pancolitis without complication (HCC) Diarrhea, unspecified type Ulcerative pancolitis without complication (HCC) documented in this encounter Care Teams Automotive Metalsmith Relationship Specialty Start Date End Date Demar Campbell MD [address] [facility] [address] [phone] PCP - General 08/08/17 documented as of this encounter
--- OUTSIDE RECORDS SUMMARY | 2024-03-19 00:52 | XMS_ITS | Encounter Summary ---
Author Organization [facility] Address [address] [place] [address] Care Team Providers Care Student Admissions Clerk Name Role Phone Demar Campbell MD Primary Care Provider [phone] Reason for Visit * Radiology Services (Routine) - Closed Specialty Diagnoses / Procedures Referred By Contac t Referred To Contact MRI Diagnoses Ulcerative pancolitis without complication (HCC) Diarrhea, unspecified type Procedures MRI PELVIS WO CONTRAST DEFECOGRAM Mara Latif MD Need updated address [facility] Mri [address] [place] [address] Referral ID Status Reason Start Date Expiration Date Visits Re quested Visits Authorized [id number] Closed 05/09/2019 06/19/2019 1 1 Encounter Details Date Type Department Care Team (Latest Contact Info) Description 05/13/2019 1:58 PM CEMENT OR CONCRETE FINISHING SUPERVISOR - 05/13/2019 11:59 PM [facility] Hospital Encounter [facility] MRI [address] [place] [phone] Mara Latif MD Need updated address Discharge [...] st Contact Info) Description 04/09/2024 8:00 AM CEMENT OR CONCRETE FINISHING SUPERVISOR Office Visit [facility] - GI [address] [place] [phone] Gigi Bueno MD [address] [place] [address] [place] [address] 07/01/2024 1:30 PM CDT Office Visit [facility] - GI [address] [place] [phone] Milka Soni MD [address] [place] [phone] 08/02/2024 9:30 AM CDT Appointment [address] [phone] Linda Dueñas MD [address] [place] [address] 08/02/2024 10:30 AM CDT Office Visit [facility] - General Surgery [address] [place] [phone] Linda Dueñas MD [address] [place] [address] 02/07/2025 10:30 AM CEMENT OR CONCRETE FINISHING SUPERVISOR Appointment [facility] [address] [place] [address] Linda Dueñas MD [address] [facility] [place] [address] 02/07/2025 11:00 AM CEMENT OR CONCRETE FINISHING SUPERVISOR Office Visit [facility] - General Surgery [address] [place] [phone] Linda Dueñas MD [address] [facility] [place] [address] documented as of this encounter Procedures Procedure Name Priority Date/Time Associated Diagnosis Comments MRI PELVIS WO CONTRAST DEFECOGRAM Routine 05/13/2019 3:40 PM CEMENT OR CONCRETE FINISHING SUPERVISOR Ulcerative pancolitis without complication (HCC) Diarrhea, unspecified type documented in this encounter Results * MRI PELVIS WO CONTRAST DEFECOGRAM (05/13/2019 3:40 PM CEMENT OR CONCRETE FINISHING SUPERVISOR) Anatomical Region Laterality Modality Pelvis Magnetic Resonan ce 05/13/2019 3:32 PM CEMENT OR CONCRETE FINISHING SUPERVISOR Impressions 05/18/2019 8:37 AM CEMENT OR CONCRETE FINISHING SUPERVISOR IMPRESSION: 1. Difficulty initiating defecation. Significant descent of the pelvic floor during attempted defecation with incomplete emptying of the rectum. 2. Mild rectal wall thickening, possibly related to prior inflammation. Dictated by Radha Azul MD (vice president & general manager [employer]). I, Dr. JUNE NAVA M.D. have personally reviewed and interpreted this examination/study. This report was electronically signed by JUNE NAVA M.D. ??on 05/18/2019 8:37 AM . Narrative 05/18/2019 8:37 AM CEMENT OR CONCRETE FINISHING SUPERVISOR EXAMINATION: Magnetic resonance imaging (MRI) defecography of [...] prior inflammation. Dictated by Radha Azul MD (vice president & general manager [employer]). I, Dr. JUNE NAVA M.D. have personally reviewed and interpreted this examination/study. This report was electronically signed by JUNE NAVA M.D. on05/18/2019 8:37 AM . Mara Latif MD MR ORDERABLES documented in this encounter Visit Diagnoses Diagnosis Ulcerative pancolitis without complication (HCC) Diarrhea, unspecified type documented in this encounter Care Teams Student Admissions Clerk Relationship Specialty Start Date End Date Demar Campbell MD [address] [facility] [address] [facility] [address] [place] [address] PCP - General 08/08/17 documented as of this encounter
--- OUTSIDE RECORDS SUMMARY | 2024-03-19 00:53 | XMS_ITS | Encounter Summary ---
Author Organization [facility] Address [address] [place] [address] Phone Care Team Providers Care Psychologist Private Practice Name Role Phone Campbell Demar Primary Care Provider [phone] Demar Campbell Unavailable Celina Ng MD Unavailable Reason for Visit * Reason Comments Follow-up Encounter Details Date Type Department Care Team (Latest Contact Info) Description 12/29/2023 10:15 AM CDT [facility] [address] [place] [address] Dickson Tavarez MD [address] [place] [phone] Ulcerative pancolitis without complication (HCC) (Primary Dx) Social History Tobacco Use Types Packs/Day Years Used Date Smoking Tobacco: Every Day Cigarettes Smokeless Tobacco: Never Tobacco Cessation:Ready to Q uit: Yes; Counseling Given: Yes PHQ-2 Answer Date Recorded Total Score - Questions 1-9 1 05/0 05/2020 Sexually Active Control Partners Comments Yes Comments No Sex and Gender Information Value Date Recorded Sex Assigned at Not on file Legal Sex Female 10:31 AM SIGN MAKER Gender Identity Not on file Sexual Orientation Not on file documented as of this encounter Last Filed Vital Signs Vital Sign Reading Time Taken Comments Blood Pressure 114/72 12/29/2023 10:43 AM CDT Pulse 90 12/29/2023 10:43 AM CDT Temperature 36.6 ??C (97.8 ??F) 12/29/2023 10:43 AM C DT Respiratory Rate 18 12/29/2023 10:43 AM CDT Oxygen Saturation 99% 12/29/2023 10:43 AM CDT Inhaled Oxygen Concentration - - Weight 78.6 kg (173 lb 4.8 oz) 12/29/2023 10:43 AM CDT Height 165.1 cm (5' 5 ) 12/29/2023 10:43 AM CDT Body Mass Index 28.84 12/29/2023 10:43 AM CDT documented in this encounter Functional Status * Question Answer Date of Assessment Author Little interest or pleasure in doing things Not at all 12/29/2023 10:43 AM CDT Unruly Trujillo CMA Feeling down, depressed, or hopeless Not at all 12/29/2023 10:43 AM CDT Ruba Trujillo CMA * Over the past 2 weeks, how often have you been bothered by any of the following problems? Question Answer Date of Assessment Author Patient Health Questionnaire-2 Score 0 12/29/2023 10:43 AM CDT Sophia Trujillo CMA documented as of this encounter Progress Notes * Dickson Tavarez MD - 12/29/2023 10:15 AM CDT Images from the original note were not included. Patient: Tessy Medina Age: 38 y.o. : 1985 [facility] En[facility] Date: 12/29/2023 Care Team: Current Providers PCP: Demar Campbell Care Team Provider: Demar Campbell Care Team Provider: Ceilna Ng MD Encounter Provider: Dickson Tavarez MD Referring Provider: not found Consulting Physician: Dickson Tavarez MD C: Dr. Demar Campbell (PCP) HISTORY OF PRESENT ILLNESS: Oralia returns. She is doing well. She has not been scheduled with Hepatology as of yet. We sent a referral weeks ago. Continue close followup. She feels a little bit better. She needs to probably also be scheduled with endoscopy with her history of ulcerative colitis. DIAGNOSIS: 1. Beta thalassemia trait with mild microcytosis and ferritin of 300. 2. BRCA-2 mutation. 3. Folic acid deficiency. 4. Ulcerative colitis. PAST TREATMENT: 1. None. CURRENT TREATMENT: 1. Folic acid 1 mg p.o. daily. 2. Yearly followups. 3. Bloodwork in a year. TREATMENT GUIDELINES: Consistent with NCCN guidelines. PROGNOSIS: EXPECTED RESPONSE TO TREATMENT: EXPECTED QUALITY OF LIFE DURING TREATMENT: ECOG: PAIN: PLAN FOR PAIN: CODE STATUS: END OF LIFE: ASSESSMENT: 1. Beta thalassemia trait with mild microcytosis and ferritin of 300. 2. BRCA-2 mutation. 3. Folic acid deficiency. 4. Ulcerative colitis. PLAN: 1. Get in to see Hepatology with fibrosis, splenomegaly, and portal hypertension in a 38-year-old. 2. Ruled out some pertinent negatives for liver failure. 3. Patient needs to get in and see with probably advanced endoscopy as well with a history of colitis TIME SPENT: REVIEW OF SYSTEMS: See HPI; otherwise, 12-point review of systems is negative. PHYSICAL EXAM: GENERAL: Patient is awake, alert and oriented x3. HEENT: Normocephalic, atraumatic, PERRLA, EOMI. Sclerae nonicteric, conjunctivae normal. Nasopharynx negative. Tongue normal, uvula midline, no thrush, no mucosal lesions present. NECK: Supple. No cervical, supraclavicular, or axillary lymphadenopathy. Thyroid not palpable. LUNGS: Clear to auscultation and percussion in all lung contreras, no focal wheezes, rales, or rhonchi. HEART: Regular rhythm and rate. Normal S1, S2, no S3, S4, no murmur, or rub. ABDOMEN: No hepatosplenomegaly, masses, ascites, areas of tenderness, bruits, or hernias. EXTREMITIES: No clubbing, cyanosis, or edema. SKIN: No ecchymosis, petechiae, or rashes. NEURO: Nonfocal. MUSCULOSKELETAL: No joint tenderness or effusion. No spine tenderness. LABORATORY/PATHOLOGY/IMAGING NOTES: Laboratory studies as per Care Everywhere. Dickson Tavarez MD, FACP/mgo Vitals: Vitals: 12/29/23 1043 BP: 114/72 BP Location: Left Arm BP Position: Sitting BP Cuff Size: Regular Pulse: 90 Resp: 18 Temp: 97.8 ??F (36.6 ??C) TempSrc: Temporal SpO2: 99% Weight: 173 lb 4.8 oz (78.6 kg) Height: 5' 5 (1.651 m) Body surface area is 1.9 meters squared. Body mass index is 28.84 kg/m??. Pain Score: 0 - No pain Allergies: No Known Allergies PMH/SgH/FH/SH: Past medical, surgical, family and social histories were reviewed at this visit. Past Medical History Positives Diagnosis Date Ulcerative colitis (HCC) Past Surgical History: Procedure Laterality Date SECTION Family History Problem Relation Age of Onset Cancer Mother Anemia Brother Family Status Relation Name Status Mother Father Alive Sister Alive Brother Alive Brother Alive Sister Alive No partnership data on file Social History Socioeconomic History Marital status: Unknown Spouse name: Seth Number of children: 4 Tobacco Use Smoking status: Every Day Types: Cigarettes Smokeless tobacco: Never Vaping Use Vaping status: Never Used Substance and Sexual Activity Sexual activity: Yes Other Topics Concern Occupational Exposure No Oncology History: Oncology History No history exists. Cancer Staging: Cancer Staging No matching staging information was found for the patient. Cumulative dose Purpose/Goal Comments Lifetime Dose Tracking No doses have been documented on this patient for the following tracked chemicals: Doxorubicin, Epirubicin, Idarubicin, Daunorubicin, Mitoxantrone, Bleomycin, Ifosfamide, Methotrexate, Cyclophosphamide, Cisplatin, Carboplatin Current Medications: Outpatient Encounter Medications as of 12/29/2023 Medication Sig Dispense Refill [DISCONTINUED] albuterol 108 (90 Base) MCG/ACT Aerosol Solution INHALE 1 PUFF BY MOUTH EVERY 4 TO 6HOURS NEEDED [DISCONTINUED] azithromycin (ZITHROMAX) 250 MG Tablet (Patient not taking: Reported on 12/08/2023) [DISCONTINUED] benzonatate (TESSALON) 100 MG Capsule Take 100 mg by mouth 3 times daily. (Patient not taking: Reported on 12/08/2023) [DISCONTINUED] clindamycin (CLEOCIN T) 1 % Lotion APPLY EXTERNALLY TO THE AFFECTED AREA OF BODY ACNE TWICE DAILY WHEN PRESENT. (Patient not taking: Reported on 12/08/2023) [DISCONTINUED] doxycycline hyclate (VIBRA-TABS) 100 MG Tablet Take 1 Tablet by mouth 2 times daily.(Patient not taking: Reported on 12/08/2023) folic acid (FOLVITE) 1 MG Tablet Take 1 Tablet by mouth daily. (Patient not taking: Reported on 01/24/2023) 90 Tablet 3 [DISCONTINUED] ibuprofen (MOTRIN) 800 MG Tablet TAKE 1 TABLET BY MOUTH EVERY 6 TO 8 HOURS WITH FOODAS NEEDED (Patient not taking: Reported on 12/08/2023) [DISCONTINUED] levonorgestrel (Mirena, 52 MG,) 20 MCG/DAY IUD Mirena 20 mcg/24 hours (7 yrs) 52 mg intrauterine device Take by intrauterine route. (Patient not taking: Reported on 12/08/2023) omeprazole (PriLOSEC) 20 MG CAPSULE DELAYED RELEASE TAKE 1 CAPSULE BY MOUTH EVERY DAY BEFORE A MEAL [DISCONTINUED] spironolactone (ALDACTONE) 100 MG Tablet Take 100 mg by mouth daily. (Patient not taking: Reported on 12/08/2023) No facility-administered encounter medications on file as of 12/29/2023. Labs: No visits with results within 7 Day(s) from this visit. Latest known visit with results is: Lab on 12/15/2023 Component Date Value Ref Range Status Ferritin 12/15/2023 239 11 - 307 ng/mL Final HEREDITARY HEMOCHROMATOSIS 12/15/2023 COMMENT Final Comment: RESULT: C.845G>A (P.[id number]) - NOT DETECTED C.187C>G (P.[id number]) - NOT DETECTED C.193A>T (P.[id number]) - NOT DETECTED NOT ASSOCIATED WITH INCREASED RISK TO DEVELOP CLINICAL SYMPTOMS OF HEREDITARY HEMOCHROMATOSIS. IN SYMPTOMATIC INDIVIDUALS, OTHER CAUSES OF IRON OVERLOAD SHOULD BE EVALUATED. SEE ADDITIONAL INFORMATION AND COMMENTS. ADDITIONAL CLINICAL INFORMATION: HEREDITARY HEMOCHROMATOSIS (HFE RELATED) IS AN AUTOSOMAL RECESSIVE IRON STORAGE DISORDER. PATIENTS MAY HAVE A GENETIC DIAGNOSIS OF HEREDITARY HEMOCHROMATOSIS AND NEVER SHOW CLINICAL SYMPTOMS. CLINICAL SYMPTOMS TYPICALLY APPEAR BETWEEN 40 TO 60 YEARS IN MALES AND AFTER MENOPAUSE IN FEMALES. SIGNS AND SYMPTOMS MAY INCLUDE ORGAN DAMAGE, PRIMARILY IN THE LIVER, RISK FOR HEPATOCELLULAR CARCINOMA, DIABETES, AND HEART DISEASE DUE TO IRON ACCUMULATION. LIFE EXPECTANCY MAY BE DECREASED IN INDIVIDUALS WHO DEVELOP CIRRHOSIS. TREATMENT FOR CLINICALLY SYMPTOMATIC INDIVIDUALS MAY INCLUDE THERAPEUTIC PHLEBOTOMY. LIVER T RANSPLANT MAY BE USED TO TREAT END STAGE LIVER FAILURE. FOR PREVENTIVE CARE, MONITORING FOR IRON OVERLOAD IS RECOMMENDED FOR PATIENTS WHO ARE HOMOZYGOUS FOR C.845G>A (P.[id number]) AND HAVE YET TO EXPERIENCE CLINICAL SYMPTOMS. COMMENTS: THE MOST COMMON HFE VARIANTS ASSOCIATED WITH HEREDITARY HEMOCHROMATOSIS ARE C.845G>A (P.[id number]), C.187C>G (P.[id number]), C.193A>T (P.[id number]). WHILE PATIENTS HOMOZYGOUS FOR C.845G>A (P.[id number]) ARE THE MOST LIKELY TO PRESENT CLINICAL SYMPTOMS, LESS THAN 10% DEVELOP CLINICALLY SIGNIFICANT IRON OVERLOAD WITH TISSUE AND ORGAN DAMAGE. GENETIC COUNSELING IS RECOMMENDED TO DISCUSS THE POTENTIAL CLINICAL IMPLICATIONS OF POSITIVE RESULTS, WELL RECOMMENDATIONS FOR TESTING FAMILY MEMBERS. GENETIC COORDINATORS ARE AVAILABLE FOR HEALTH CARE PROVIDERS TO DISCUSS RESULTS AT [phone]). TEST DETAILS: THREE VARIANTS ANALYZED: C.845G>A (P.[id number]), COMMONLY REFERRED TO C282Y C.187C>G (P.[id number]), COMMONLY REFERRED TO H6 3D C.193A>T (P.[id number]), COMMONLY REFERRED TO S65C METHODS/LIMITATIONS: DNA ANALYSIS OF THE HFE GENE ([id number]) WAS PERFORMED BY PCR AMPLIFICATION FOLLOWED BY RESTRICTION ENZYME DIGESTION ANALYSES. RESULTS MUST BE COMBINED WITH CLINICAL INFORMATION FOR THE MOST ACCURATE INTERPRETATION. MOLECULAR- BASED TESTING IS HIGHLY ACCURATE, BUT IN ANY LABORATORY TEST, DIAGNOSTIC ERRORS MAY OCCUR. FALSE POSITIVE OR FALSE NEGATIVE RESULTS MAY OCCUR FOR REASONS THAT INCLUDE GENETIC VARIANTS, BLOOD TRANSFUSIONS, BONE MARROW TRANSPLANTATION, SOMATIC OR TISSUE-SPECIFIC MOSAICISM, MISLABELED SAMPLES, OR ERRONEOUS REPRESENTATION OF FAMILY RELATIONSHIPS. THIS TEST WAS DEVELOPED AND ITS PERFORMANCE CHARACTERISTICS DETERMINED BY [employer]. IT HAS NOT BEEN CLEARED OR APPROVED BY THE FOOD AND DRUG ADMINISTRATION. REFERENCES: EB BR, JACE PC, NOY KV, KRISTA LW, HAI ; [employer] THE [employer]Y OF LIVER DISEASES. DIAGNOSIS AND MANAGEMENT OF HEMOCHROMATOSIS: 2011 MD ACTICE GUIDELINE BY THE [employer] THE [employer]UDY OF LIVER DISEASES. HEPATOLOGY. 2011 SEP;54(1):328-43. DOI: 10.1002/HEP.73399. PMID: 53420559; PMCID: [id number]. NUNU G, ASHWIN P, NANCY DW, DENISE H, NICKOLAS O, JOANNE S, CAROLYNWILDA Pascual KEENEY S. [facility] BEST PRACTICE GUIDELINES FOR THE MOLECULAR GENETIC DIAGNOSIS OF HEREDITARY HEMOCHROMATOSIS (HH). EUR J HUM ROBERT. 2016 APR;24(4):479-31. DOI: 10.1038/EJHG.2015.128. EPUB 2014SEP 21. PMID: [id number]; PMCID: [id number]. REVIEWED BY, [place] [id number] 12/15/2023 COMMENT Final Comment: TECHNICAL COMPONENT PERFORMED AT [facility] RTP PROFESSIONAL COMPONENT PERFORMED BY: [employer] MATTHEW DOUGLAS, PH.D., [facility] DIRECTOR, MOLECULAR GENETICS [address] [place] [address] [place] [id number] HEMOGLOBIN F 12/15/2023 8.1 (H) 0.0 - 2.0 % Final HEMOGLOBIN A 12/15/2023 87.3 (L) 96.4 - 98.8 % Final HEMOGLOBIN A2 12/15/2023 4.6 (H) 1.8 - 3.2 % Final HEMOGLOBIN S 12/15/2023 0.0 0.0 % Final HEMOGLOBIN PATTERN 12/15/2023 COMMENT Final Comment: HEMOGLOBIN PATTERN AND CONCENTRATIONS ARE CONSISTENT WITH BETA-THALASSEMIA MINOR. SUGGEST HEMATOLOGIC AND CLINICAL CORRELATION. HEMOGLOBIN PATTERN AND CONCENTRATIONS REVEAL AN ELEVATION OF HGB F WHICH MAY INDICATE THE PRESENCE OF A HEREDITARY PERSISTENCE GENE. HOWEVER, ELEVATIONS OF HGB F HAVE ALSO BEEN REPORTED TO OCCUR WITH CERTAIN ANEMIAS, , PORPHYRIAS, AND SOME MALIGNANCIES. documented in this encounter Plan of Treatment Upcoming Encounters Date Type Department Care Team (Late st Contact Info) Description 04/05/2024 11:30 AM SIGN MAKER Lab [facility] [address] [phone] Lab, [facility] 04/05/2024 11:45 AM SIGN MAKER Office Visit [facility] [address] [phone] Dickson Tavarez MD [address] [place] [phone] documented as of this encounter Visit Diagnoses Diagnosis Ulcerative pancolitis without complication (HCC)- Primary documented in this encounter Additional Health Concerns Assessment Noted Time PHQ-9 Depression Total Score: 1 07/18/19 21 8:20 AM CDT documented as of this encounter Care Teams Psychologist Private Practice Relationship Specialty Start Date End Date Demar Campbell [address] [place] [address] PCP - General Family Medicine 12/12/23 Demar Campbell [address] [place] [address] Family Medicine 12/12/23 Celina Ng MD [address] [place] [address] Consulting Physician Oncology 12/12/23 documented as of this encounter
--- OUTSIDE RECORDS SUMMARY | 2024-03-19 00:53 | XMS_ITS | Encounter Summary ---
Author Organization [facility] Address [address] [place] [address] Care Team Providers Care Handy Worker Name Role Phone Demar Campbell MD Primary Care Provider [phone] Encounter Details Date Type Department Care Team (Late Contact Info) Description 12/25/2018 Orders Only [facility] [address] [place] [phone] Neeta Byrne, RN Social History Tobacco Use Types Packs/Day Years Used Date Smoking Tobacco: Some Days Smokeless Tobacco: Never Alcohol Use Standard Drinks/Week Comments Yes 0 (1 standard drink = 0.6 oz pur e alcohol) rare Sex and Gender Information Value Date Recorded Sex Assigned at Not on file Gender Identity Not on file Sexual Orientation Not on file documented as of this encounter Progress Notes * Neeta Byrne RN - 12/25/2018 12:44 PM CDT Pt confirmed procedure appointment for EGD/colonoscopy on 12/29/2018 at 1pm. Verbalized understanding of prep instructions including NPO after midnight. Will arrive 1 hour prior to procedure time. Has mobile lounge driver (friend) and has no further questions at this time. This pt is not taking blood thinning medications. Prep E-scribed. Patient is nursing her 18mo old twins. Will discuss instructions with anesthesia prior to procedures on Friday. documented in this encounter Plan of Treatment Upcoming Encounters Date Type Department Care Team ([facility] Contact Info) Description 04/09/2024 8:00 AM AGRICULTURAL SERVICE TECHNICIAN Office Visit [facility] GI [address] [facility], [place] [address] Gigi Bueno MD [address] [place] [address] [place] [address] 07/01/2024 1:30 PM CDT Office [facility] [address] [place] [address], [place] [phone] Milka Soni MD [address] [place] [phone] 08/02/2024 9:30 AM CDT Appointment [facility] [address] [place] [phone] Linda Dueñas MD [address] [facility] [place] [address] 08/02/2024 10:30 AM CDT Office Visit [facility] - General Surgery [address] [place] [phone] Linda Dueñas MD [address] [facility] [place] [address] 02/07/2025 10:30 AM AGRICULTURAL SERVICE TECHNICIAN Appointment [address] [address] Linda Dueñas MD [address] [place] [address] 02/07/2025 11:00 AM AGRICULTURAL SERVICE TECHNICIAN Office Visit [facility] - General Surgery [address] [place] [phone] Linda Dueñas MD [address] [facility] [place] [address] documented as of this encounter Visit Diagnoses Not on filedocumented in this encounter Care Teams Handy Worker Relationship Specialty Start Date End Date Demar Cmapbell MD [address] [facility] [address] [place] [address] PCP - General 08/08/17 documented as of this encounter
--- OUTSIDE RECORDS SUMMARY | 2024-03-19 00:53 | XMS_ITS | Encounter Summary ---
Author Organization [facility] Address [address] [place] [address] Phone Care Team Providers Care Reagent Tender Helper Name Role Phone Demar Campbell Primary Care Provider [phone] Demar Campbell Unavailable Celina Ng MD Unavailable Encounter Details Date Type Department Care Team (Late st Contact Info) Description 01/30/2024 12:00 PM MANAGING JEWELER Lab [facility] [address] [address] Lab, Cc [facility] Ulcerative pancolitis without complication (HCC); BRCA positive Social History Tobacco Use Types Packs/Day Years Used Date Smoking Tobacco: Every Day Cigarettes Smokeless Tobacco: Never PHQ-2 Answer Date Recorded Total Score - Questions 1-9 1 05/2020 Sexually Active Control Partners Comments Yes Comments No Sex and Gender Information Value Date Recorded Sex Assigned at Not on file Legal Sex Female 10:31 AM MANAGING JEWELER Gender Identity Not on file Sexual Orientation Not on file documented as of this encounter Functional Status * Question Answer Date of Assessment Author Little interest or pleasure in doing things Not at all 01/30/2024 12:23 PM Unruly Angelo CMA Feeling down, depressed, or hopeless Not at all 01/30/2024 12:23 PM Ruba Angelo CMA * Over the past 2 weeks, how often have you been bothered by any of the following problems? Question Answer Date of Assessment Author Patient Health Questionnaire-2 Score 0 01/30/2024 12:23 PM MANAGING JEWELER Sophia Trujillo CMA documented as of this encounter Plan of Treatment Upcoming Encounters Date Type Department Care Team (Late st Contact Info) Description 04/05/2024 11:30 AM MANAGING JEWELER Lab [facility] [address] [address] Lab, [facility]c [facility] 04/05/2024 11:45 AM MANAGING JEWELER Office Visit [facility] [address] [address] Dickson Tavarez MD [address] [place] [phone] documented as of this encounter Procedures Procedure Name Priority Date/Time Associated Diagnosis Comments IRON W/ IRON BINDING CAPACITY [place] Routine 01/30/2024 12:19 PM MANAGING JEWELER Ulcerative pancolitis without complication (HCC) BRCA positive VITAMIN B12 Routine 01/30/2024 12:19 PM MANAGING JEWELER Ulcerative pancolitis without complication (HCC) BRCA positive RETICULOCYTE COUNT (RETIC) Routine 01/30/2024 12:19 PM MANAGING JEWELER Ulcerative pancolitis without complication (HCC) BRCA positive LACTATE DEHYDROGENASE (LD) Routine 01/30/2024 12:19 PM MANAGING JEWELER Ulcerative pancolitis without complication (HCC) BRCA positive FOLIC ACID (FOLATE) Routine 01/30/2024 1 2:19 PM MANAGING JEWELER Ulcerative pancolitis without complication (HCC) BRCA positive FERRITIN Routine 01/30/2024 12:19 PM MANAGING JEWELER Ulcerative pancolitis without complication (HCC) BRCA positive CMP (COMPREHENSIVE METABOLIC PANEL) Routine 01/30/2024 12:19 PM MANAGING JEWELER Ulcerative pancolitis without complication (HCC) BRCA positive COMPLETE BLOOD COUNT (CBC) WITH DIFF Routine 01/30/2024 12:19 PM MANAGING JEWELER Ulcerative pancolitis without complication (HCC) BRCA positive documented in this encounter Results * (ABNORMAL) RETICULOCYTE COUNT (RETIC) (01/30/2024 12:19 PM MANAGING JEWELER) Reticulocyte count 1.86(H) 0.50 - 1.70 % [facility] RET-He 22.10(L) 28.20 - 36.60 pg [facility] Comment: RET-He is a direct assessment of incorporation of iron into erythrocyte hemoglobin. It provides an indirect measure of the iron available for new erythropoiesis over past 2-4 days. Blood 01/30/2024 12:1 9 PM MANAGING JEWELER Narrative [facility] - 01/30/2024 12:27 PM MANAGING JEWELER Release to patient->Immediate Mariel De Dios APRN, [facility]AT[facility] ORDERA BLES Final Result Performing Organization Address [facility]/ZIP Co de Phone Number [facility] [address] [place] [address], [place] [phone] * (ABNORMAL) IRON W/ IRON BINDING CAPACITY [place] (01/30/2024 12:19 PM MANAGING JEWELER) Pathologist [facility] IRON 134 50 - 212 ug/dL [facility] UIBC 117(L) 155 - 355 ug/dL [facility] TIBC 251(L) 261 - 478 ug/dl [facility] % Saturation 53(H) 20 - 50 % [facility] 01/30/2024 12:1 9 PM MANAGING JEWELER Narrative [facility] - 01/30/2024 1:03 PM MANAGING JEWELER Release to patient->Immediate Mariel De Dios APRN, CLAMMER LAB SEND OUTS F inal Result Performing Organization Address [facility]/ZIP Co de Phone Number [facility] [address] [place] [address], [place] [phone] * FERRITIN (01/30/2024 12:19 PM MANAGING JEWELER) Ferritin 286 11 - 307 ng/mL [facility] Blood 01/30/2024 12:1 9 PM MANAGING JEWELER Narrative [facility] - 02/02/2024 2:56 PM MANAGING JEWELER Release to patient->Immediate Mariel De Dios COMPUTER TAPE LIBRARIAN, CLAMMER CHEMISTRY ORDERAB LES Final Result [facility] [address] [place] [address], [place] [phone] * FOLIC ACID (FOLATE) (01/30/2024 12:19 PM MANAGING JEWELER) Folate 7.80 >=5.90 ng/mL [facility] Blood 01/30/2024 12:1 9 PM MANAGING JEWELER Narrative [facility] - 02/02/2024 2:56 PM MANAGING JEWELER Release to patient->Immediate IS THE PATIENT REQUIRED TO BE FASTING FOR 12 HOURS?->No Mariel De Dios COMPUTER TAPE LIBRARIAN, CLAMMER CHEMISTRY ORDERAB LES Final Result Performing Organization Address [facility]/ZIP Co de Phone Number [facility] [address] [place] [address], [place] [phone] * VITAMIN B12 (01/30/2024 12:19 PM MANAGING JEWELER) Vitamin B12 >1,500 180 - 914 pg/mL [facility] Blood 01/30/2024 12:1 9 PM MANAGING JEWELER Narrative [facility] - 02/02/2024 2:56 PM MANAGING JEWELER Release to patient->Immediate Mariel De Dios COMPUTER TAPE LIBRARIAN, CLAMMER CHEMISTRY ORDERAB LES Final Result [facility] [address] [address], [place] [phone] * (ABNORMAL) LACTATE DEHYDROGENASE (LD) (01/30/2024 12:19 PM MANAGING JEWELER) LDH 94(L) 140 - 271 U/L [facility] Blood 01/30/2024 12:1 9 PM MANAGING JEWELER Narrative [facility] - 01/30/2024 1:03 PM MANAGING JEWELER Release to patient->Immediate us Mariel De Dios APRN, CLAMMER CHEMISTRY ORDERAB LES Final Result [facility] [address] [address], [place] [phone] * (ABNORMAL) CMP (COMPREHENSIVE METABOLIC PANEL) (01/30/2024 12:19 PM MANAGING JEWELER) Glucose 97 70 - 105 mg/dL [facility] Blood Urea Nitrogen 13 7 - 25 mg/dL [facility] Creatinine 0.6 0.6 - 1.2 mg/dL [facility] Sodium 139 136 - 145 mEq/L [facility] Potassium 3.9 3.5 - 5.1 mEq/L [facility] Chloride 103 98 - 107 mEq/L [facility] Bicarbonate 25 21 - 31 mEq/L [facility] Total Bilirubin 0.8 0.3 - 1.0 mg/dL [facility] Alk. Phosphatase 36 34 - 104 U/L [facility] Aspartate Aminotransferase 12(L) 13 - 39 U/L [facility] Alanine Aminotransferase 10 7 - 52 U/L [facility] Total Protein 6.9 6.4 - 8.9 g/dL [facility] Albumin 4.4 3.5 - 5.7 g/dL [facility] Calcium 9.1 8.6 - 10.3 mg/dL [facility] Anion Gap 14.9 7.0 - 15.0 mEq/L [facility] Globulin 2.5 2.0 - 3.5 g/dL [facility] EGFR 119 >60 ml/min/1. 73m2 [facility] Comment: This eGFR is calculated using 2020 CKD-EPI Creatinine equation without race modifier based on the NKF-ASN task force recommendations Blood 01/30/2024 12:1 9 PM MANAGING JEWELER Narrative [facility] - 01/30/2024 1:03 PM MANAGING JEWELER Release to patient->Immediate IS THE PATIENT REQUIRED TO BE FASTING FOR 8 HOURS?->No us Mariel De Dios COMPUTER TAPE LIBRARIAN, CLAMMER CHEMISTRY ORDERAB LES Final Result [facility] [place] [address], * (ABNORMAL) COMPLETE BLOOD COUNT (CBC) WITH DIFF (01/30/2024 12:19 PM MANAGING JEWELER) WBC 8.5 4.0 - 10.0 10*3/uL [facility] HGB 10.6(L) 11.2 - 15.7 g/dL [facility] HCT 34.2 34.1 - 44.9 % [facility] PLT 232 163 - 369 10*3/uL [facility] MPV See below 9.4 - 12.4 fL [facility] Comment:Instrument unable to provide an accurate result RBC 4.87 3.93 - 5.22 10*6/uL [facility] MCV 70(L) 79 - 95 fL [facility] MCH 21.8(L) 25.6 - 32.2 pg [facility] MCHC 31.0(L) 32.2 - 36.5 g/dL [facility] RDW 18.6(H) 11.6 - 14.4 % [facility] Absolute Neutrophil Count 4,828 cells/uL [facility] Absolute Seg Count 4,828 1,440 - 6,600 cells/uL [facility] Absolute Lymph Count 3,134 760 - 4,000 cells/uL [facility] Absolute [place] Count 339 160 - 1,200 cells/uL [facility] Absolute Eos Count 85 0 - 300 cells/uL [facility] Absolute Baso Count 85 0 - 100 cells/uL [facility] Segmented Neutrophils 57 36 - 66 % [facility] Lymphocytes 37 19 - 40 % [facility] Monocytes 4 4 - 12 % [facility] [address] [facility] Eosinophils 1 0 - 3 % [facility] Basophils 1 0 - 1 % [facility] [address] [facility] WBC Estimate Normal [facility] JIRA DEVELOPER [facility] Platelet Estimate Normal CA NCER [facility] DEVELOPER [facility] RBC Morphology Abnormal CANCE R JIRA DEVELOPER [facility] Microcytosis 1+ [facility] Hypochromasia 2+ [facility] DEVELOPER [facility] Anisocytosis 1+ CANCER JIRA DEVELOPER [facility] Poikilocytosis 1+ [facility] JIRA DEVELOPER [facility] Target Cells 1+ [facility] DEVELOPER [facility] Elliptocytes 1+ [facility] Blood 01/30/2024 12:1 9 PM MANAGING JEWELER Narrative [facility] JIRA DEVELOPER [facility] - 01/30/2024 2:18 PM MANAGING JEWELER Release to patient->Immediate Mariel De Dios COMPUTER TAPE LIBRARIAN, CLAMMER HEMATOLOGY ORDERA BLES Final Result [facility] [place] [address], documented in this encounter Visit Diagnoses Diagnosis Ulcerative pancolitis without complication (HCC) BRCA positive Genetic susceptibility to malignant neoplasm of breast documented in this encounter Additional Health Concerns Assessment Noted Time PHQ-9 Depression Total Score: 1 07/18/19 21 8:20 AM CDT documented as of this encounter Care Teams Reagent Tender Helper Relationship Specialty Start Date End Date Demar Campbell [address] [place] [address] PCP - General Family Medicine 12/12/23 Demar Campbell [address] [place] [address] Family Medicine 12/12/23 Celina Ng MD [address] [facility] [place] [address] Consulting Physician Oncology 12/12/23 documented as of this encounter
--- OUTSIDE RECORDS SUMMARY | 2024-03-19 00:53 | XMS_ITS | Encounter Summary ---
Author Organization [facility] Address [address] [place] [address] Care Team Providers Care Corrugated Fastener Driver Name Role Phone Demar Campbell MD Primary Care Provider [phone] Reason for Visit * Reason Comments Future Appointment Encounter Details Date Type Department Care Team (Late Contact Info) Description 08/07/2018 Telephone [facility] [address] [place] [phone] Demar Campbell MD [address] [place] [address] [place] [address] Future Appointment Social History Tobacco Use Types Packs/Day Years Used Date Smoking Tobacco: Never Assessed Sex and Gender Information Value Date Recorded Sex Assigned at Not on file Gender Identity Not on file Sexual Orientation Not on file documented as of this encounter Progress Notes * Rubi Mars - 08/07/2018 9:27 AM CDT PT TO MAKE AN APPT FOR ULCERATIVE COLITIS documented in this encounter Plan of Treatment Upcoming Encounters Date Type Department Care Team ([facility] Contact Info) Description 04/09/2024 8:00 AM CARGO SURVEYOR Office Visit [facility] [address] [place] [phone] Gigi Bueno MD [address] [place] [address] [place] [address] 07/01/2024 1:30 PM CDT Office Visit [facility] GI [address] [facility], [place] [address] Milka Soni MD [address] [place] [address] 08/02/2024 9:30 AM CDT Appointment [facility] MRI [address] [place] [address] Linda Dueñas MD [address] [facility] [place] [address] 08/02/2024 10:30 AM CDT Office Visit [facility] - General Surgery [address] [place] [phone] Linda Dueñas MD [address] [facility] [place] [address] 02/07/2025 10:30 AM CARGO SURVEYOR Appointment [address] [address] Linda Dueñas MD [address] [facility] [place] [address] 02/07/2025 11:00 AM CARGO SURVEYOR Office Visit [facility] - General Surgery [address] [place] [phone] Linda Dueñas MD [address] [facility] [place] [address] documented as of this encounter Visit Diagnoses Not on filedocumented in this encounter Care Teams Corrugated Fastener Driver Relationship Specialty Start Date End Date Demar Campbell MD [address] [facility] [address] [facility] [address] [place] [address] PCP - General 08/08/17 documented as of this encounter
--- OUTSIDE RECORDS SUMMARY | 2024-03-19 00:53 | XMS_ITS | Encounter Summary ---
Author Organization [facility] Care Team Providers Care Paranormal Investigator Name Role Phone Adrian Demar Primary Care Provider [phone] Demar Campbell Unavailable Celina Ng MD Unavailable Encounter Details Date Type Department Care Team (Latest Contact Info) Description 12/29/2023 Travel Social History Tobacco Use Types Packs/Day Years Used Date Smoking Tobacco: Every Day Cigarettes Smokeless Tobacco: Never PHQ-2 Answer Date Recorded Total Score - Questions 1-9 1 05/0 05/2020 Sexually Active Control Partners Comments Yes Comments No Sex and Gender Information Value Date Recorded Sex Assigned at Not on file Legal Sex Female 10:31 AM EDUCATIONAL ASSISTANT TEACHER Gender Identity Not on file Sexual Orientation Not on file documented as of this encounter Functional Status * Question Answer Date of Assessment Author Little interest or pleasure in doing things Not at all 12/29/2023 10:43 AM Unruly Price CMA Feeling down, depressed, or hopeless Not at all 12/29/2023 10:43 AM Ruba Price CMA * Over the past 2 weeks, how often have you been bothered by any of the following problems? Question Answer Date of Assessment Author Patient Health Questionnaire-2 Score 0 12/29/2023 10:43 AM Sophia Price CMA documented as of this encounter Plan of Treatment Upcoming Encounters Date Type Department Care Team (Late st Contact Info) Description 04/05/2024 11:30 AM EDUCATIONAL ASSISTANT TEACHER Lab [facility] [address] [phone] Lab, Cc [facility] 04/05/2024 11:45 AM EDUCATIONAL ASSISTANT TEACHER Office Visit [facility] [place] [address] [place] [address] Dickson Tavarez MD [address] [place] [phone] documented as of this encounter Visit Diagnoses Not on filedocumented in this encounter Additional Health Concerns Assessment Noted Time PHQ-9 Depression Total Score: 1 07/18/19 21 8:20 AM CDT documented as of this encounter Care Teams Paranormal Investigator Relationship Specialty Start Date End Date Demar Campbell [address] [address] PCP - General Family Medicine 12/12/23 Demar Campbell [address] [address] Family Medicine 12/12/23 Celina Ng MD [address] [place] [address] Consulting Physician Oncology 12/12/23 documented as of this encounter
--- OUTSIDE RECORDS SUMMARY | 2024-03-19 00:53 | XMS_ITS | Encounter Summary ---
Author Organization [facility] Address [address] [place] [address] Phone Care Team Providers Care Retail Sales Specialist Name Role Phone Demar Campbell Primary Care Provider [phone] Demar Campbell Unavailable Celina Ng MD Unavailable Encounter Details Date Type Department Care Team (Late st Contact Info) Description 12/15/2023 12:10 PM CDT Lab [facility] [address] [address] Lab, Cc [facility] Ulcerative pancolitis without complication (HCC) Social History Tobacco Use Types Packs/Day Years Used Date Smoking Tobacco: Every Day Cigarettes Smokeless Tobacco: Never PHQ-2 Answer Date Recorded Total Score - Questions 1-9 1 05/0 05/2020 Sexually Active Control Partners Comments Yes Comments No Sex and Gender Information Value Date Recorded Sex Assigned at Not on file Legal Sex Female 10:31 AM HOSE TURNER Gender Identity Not on file Sexual Orientation Not on file documented as of this encounter Functional Status * Question Answer Date of Assessment Author Little interest or pleasure in doing things Not at all 12/15/2023 10:37 AM CDT Ankur Solomon CMA Feeling down, depressed, or hopeless Not at all 12/15/2023 10:37 AM CDT Ankur Solomon CMA * Over the past 2 weeks, how often have you been bothered by any of the following problems? Question Answer Date of Assessment Author Patient Health Questionnaire -2 Score 0 12/15/2023 10:37 AM CDT Ankur Solomon CMA documented as of this encounter Plan of Treatment Upcoming Encounters Date Type Department Care Team (Late st Contact Info) Description 04/05/2024 11:30 AM HOSE TURNER Lab [facility] [address] [phone] Lab, Cc [facility] 04/05/2024 11:45 AM HOSE TURNER Office Visit [facility] [address] [address] Dickson Tavarez MD [address] [place] [phone] documented as of this encounter Procedures Procedure Name Priority Date/Time Associated Diagnosis Comments HEMOGLOB[place]OPATHY [place]FILE [place] [id number] Routine 12/15/2023 12:13 PM CDT Ulcerative pancolitis without complication (HCC) HERED.HEMOCHROMATOSIS, DNA [place] [id number] Routine 12/15/2023 12:13 PM CDT Ulcerative pancolitis without complication (HCC) FERRITIN Routine 12/15/2023 12:13 PM CDT Ulcerative pancolitis without complication (HCC) documented in this encounter Results * (ABNORMAL) HEMOGLOBINOPATHY PROFILE [place] [id number] (12/15/2023 12:13 PM CDT) HEMOGLOBIN F 8.1(H) 0.0 - 2.0 % [facility]ER ASSISTANT TRACK AND FIELD [facility] HEMOGLOBIN A 87.3(L) 96.4 - 98.8 % [facility] ASSISTANT TRACK AND FIELD [facility] HEMOGLOBIN A2 4.6(H) 1.8 - 3.2 % [facility] ASSISTANT TRACK AND FIELD [facility] HEMOGLOBIN S 0.0 0.0 % [facility] HEMOGLOBIN PATTERN COMMENT [facility] COACH [facility] Comment: HEMOGLOBIN PATTERN AND CONCENTRATIONS ARE CONSISTENT WITH BETA-THALASSEMIA MINOR. SUGGEST HEMATOLOGIC AND CLINICAL CORRELATION. HEMOGLOBIN PATTERN AND CONCENTRATIONS REVEAL AN ELEVATION OF HGB F WHICH MAY INDICATE THE PRESENCE OF A HEREDITARY PERSISTENCE GENE. HOWEVER, ELEVATIONS OF HGB F HAVE ALSO BEEN REPORTED TO OCCUR WITH CERTAIN ANEMIAS, , PORPHYRIAS, AND SOME MALIGNANCIES. 12/15/2023 12:1 3 PM CDT Narrative CANCER ASSISTANT TRACK AND FIELD COACH [facility] - 12/16/2023 1:10 PM CDT TESTING PERFORMED AT: [] [facility], [address] [place] [address], [place], [address], PHONE: [phone], BOARDING MACHINE OPERATOR: KELVIN GOULD, PHD Release to patient->Immediate us Dickson Tavarez MD LAB SEND OUTS Final Resul t CANCER ASSISTANT TRACK AND FIELD COACH [facility] [place] [address], * HERED.HEMOCHROMATOSIS, DNA [place] [id number] (12/15/2023 12:13 PM CDT) HEREDITARY HEMOCHROMATOSIS COMMENT [facility] Comment: RESULT: C.845G>A (P.[id number]) - NOT DETECTED C.187C>G (P.[id number]) - NOT DETECTED C.193A>T (P.[id number]) - NOT DETECTED NOT ASSOCIATED WITH INCREASED [...] SYMPTOMATIC INDIVIDUALS MAY INCLUDE THERAPEUTIC PHLEBOTOMY. LIVER TRANSPLANT MAY BE USED TO TREAT END STAGE LIVER FAILURE. FOR PREVENTIVE CARE, MONITORING FOR IRON OVERLOAD IS RECOMMENDED FOR PATIENTS WHO ARE HOMOZYGOUS FOR C.845G>A (P.[id number]) AND HAVE YET TO EXPERIENCE CLINICAL SYMPTOMS. COMMENTS: THE MOST COMMON HFE VARIANTS ASSOCIATED WITH HEREDITARY HEMOCHROMATOSIS ARE C.845G>A (P.[id number]), C.187C>G (P.[id number]), C.193A>T (P.[id number]). WHILE PATIENTS HOMOZYGOUS FOR C.845G>A (P.[id number]) ARE THE MOST LIKELY TO PRESENT CLINICAL SYMPTOMS, LESS THAN 10% DEVELOP CLINICALLY SIGNIFICANT IRON OVERLOAD WITH TISSUE AND ORGAN DAMAGE. GENETIC COUNSELING IS RECOMMENDED TO DISCUSS THE POTENTIAL CLINICAL IMPLICATIONS OF POSITIVE RESULTS, WELL RECOMMENDATIONS FOR TESTING FAMILY MEMBERS. GENETIC COORDINATORS ARE AVAILABLE FOR HEALTH CARE PROVIDERS TO DISCUSS RESULTS AT [phone] ([phone]). TEST DETAILS: THREE VARIANTS ANALYZED: C.845G>A (P.[id number]), COMMONLY REFERRED TO C282Y C.187C>G (P.[id number]), COMMONLY REFERRED TO H63D C.193A>T (P.[id number]), COMMONLY REFERRED TO S65C METHODS/LIMITATIONS: DNA ANALYSIS [...] DEVELOPED AND ITS PERFORMANCE CHARACTERISTICS DETERMINED BY [employer]. IT HAS NOT BEEN CLEARED OR APPROVED BY THE [employer]OD AND DR[employer]RATION. REFERENCES: EB BR, JACE PC, NOY KV, KRISTA LW, HAI ; [employer] [employer] LIVER DISEASES. DIAGNOSIS AND MANAGEMENT OF HEMOCHROMATOSIS: 2011 PRACTICE GUIDELINE BY THE [place] [employer] THE [employer] LIVER DISEASES. HEPATOLOGY. 2011 SEP;54(1):328-43. DOI: 10.1002/HEP.76501. PMID: 58500354; PMCID: [id number]. NUNU G, ASHWIN P, NANCY YAO, DENISE H, NICKOLAS O, JOANNE S, CAROLYN I, WILDA M, JOHNY S. [facility] PRACTICE GUIDELINES FOR THE MOLECULAR GENETIC DIAGNOSIS OF HEREDITARY HEMOCHROMATOSIS (HH). EUR J HUM ROBERT. 2016 APR;24(4):479-65. DOI: 10.1038/EJHG.2015.128. EPUB 2014SEP 21. PMID: [id number]; PMCID: [id number]. REVIEWED BY, ONIEL [id number] COMMENT [facility] ASSISTANT TRACK AND FIELD [facility] Comment: TECHNICAL COMPONENT PERFORMED AT [facility] RT PROFESSIONAL COMPONENT PERFORMED BY: [employer] MATTHEW DOUGLAS, PH.D., [facility] DIRECTOR, MOLECULAR GENETICS [address] [place] [address] [facility] [address] 12/15/2023 12:1 3 PM CDT Narrative [facility] - 12/29/2023 7:36 AM CDT TESTING PERFORMED AT: [TG] [facility], [address] [place] [address], [address], PHONE: [phone], BOARDING MACHINE OPERATOR: MONICA CORONA [facility] Release to patient->Immediate us Dickson Tavarez MD LAB SEND OUTS Final Resul t [facility] [address] [place] [address], [place] [phone] * FERRITIN (12/15/2023 12:13 PM CDT) Ferritin 239 11 - 307 ng/mL [facility] Blood 12/15/2023 12:1 3 PM CDT Narrative [facility] - 12/16/2023 2:58 PM CDT Release to patient->Immediate us Dickson Tavarez MD CHEMISTRY ORDERABLES Final Result Performing Organization Address [facility] Co de Phone Number [facility] [place] [address] [place] [address], [place] [phone] documented in this encounter Visit Diagnoses Diagnosis Ulcerative pancolitis without complication (HCC) documented in this encounter Additional Health Concerns Assessment Noted Time PHQ-9 Depression Total Score: 1 07/18/19 21 8:20 AM CDT documented as of this encounter Care Teams Retail Sales Specialist Relationship Specialty Start Date End Date Adrian Demar [address] [place] [address] PCP - General Family Medicine 12/12/23 CampbellDemar [address] [place] [address] Family Medicine 12/12/23 Celina Ng MD [address] [place] [address] Consulting Physician Oncology 12/12/23 documented as of this encounter
--- OUTSIDE RECORDS SUMMARY | 2024-03-19 00:53 | XMS_ITS | Encounter Summary ---
Author Organization [facility] Address [address] [place] [address] Care Team Providers Care Photographer'S Model Name Role Phone Demar Campbell MD Primary Care Provider [phone] Encounter Details Date Type Department Care Team (Late Contact Info) Description 12/23/2018 Orders Only [facility] GI [address] [place] [address] Mara Latif MD Need updated address Ulcerative pancolitis without complication (HCC) Social History [...] on file documented as of this encounter Plan of Treatment Upcoming Encounters Date Type Department Care Team (Late Contact Info) Description 04/09/2024 8:00 AM VINEYARD SUPERVISOR Office Visit [facility] - GI [address] [place] [phone] Gigi Bueno MD [address] [place] [address] [place] [address] 07/01/2024 1:30 PM CDT Office Visit [facility] - GI [address] [place] [phone] Milka Soni MD [address] [place] [address] 08/02/2024 9:30 AM CDT Appointment [facility] MRI [address] [place] [address] Linda Dueñas MD [address] [facility] [place] [address] 08/02/2024 10:30 AM CDT Office Visit [facility] - General Surgery [address] [place] [phone] Linda Dueñas MD [address] [facility] [place] [address] 02/07/2025 10:30 AM VINEYARD SUPERVISOR Appointment [address] [address] Linda Dueñas MD [address] [facility] [place] [address] 02/07/2025 11:00 AM VINEYARD SUPERVISOR Office Visit [facility] Physician [facility] General Surgery [address] [place] [phone] Linda Dueñas MD [address] [facility] [place] [address] documented as of this encounter Visit Diagnoses Diagnosis Ulcerative pancolitis without complication (HCC) documented in this encounter Care Teams Photographer'S Model Relationship Specialty Start Date End Date Demar Campbell MD [address] [facility] [address] [phone] PCP - General 08/08/17 documented as of this encounter
--- OUTSIDE RECORDS SUMMARY | 2024-03-19 00:53 | XMS_ITS | Encounter Summary ---
Author Organization [facility] Address [address] [place] [address] Care Team Providers Care Union Carpenter Name Role Phone Demar Campbell MD Primary Care Provider Reason for Visit * Reason Comments Scheduling referral- 3rd attemp t Encounter Details Date Type Department Care Team (Late Contact Info) Description 08/17/2018 Telephone [facility] [address] [place] [address] Tiffany Braga Scheduling (referral- 3rd attempt) Social History Tobacco Use Types Packs/Day Years Used Date Smoking Tobacco: Never Assessed Sex and Gender Information Value Date Recorded Sex Assigned at Not on file Gender Identity Not on file Sexual Orientation Not on file documented as of this encounter Miscellaneous Notes * Telephone Encounter - Tiffany Braga - 08/17/2018 10:25 AM CDT 3rd attempt to reach pt to sched appt per referral. Pt sts out of town and not sure when she will be returning. She will call to set up appt when she has a return date. Scanning referral docs into [facility] for when she calls back. documented in this encounter Plan of Treatment Upcoming Encounters Date Type Department Care Team ([facility] Contact Info) Description 04/09/2024 8:00 AM SHOOTING GALLERY OPERATOR Office Visit [facility] - [address] [facility], [place] [phone] Gigi Bueno MD [address] [place] [address] [place] [address] 07/01/2024 1:30 PM CDT Office Visit [facility] - GI [address] [facility], [place] [address] Milka Soni MD [address] [place] [address] 08/02/2024 9:30 AM CDT Appointment [facility] MRI [address] [place] [address] Linda Dueñas MD [address] [facility] [place] [address] 08/02/2024 10:30 AM CDT Office Visit [facility] - General Surgery [address] [place] [phone] Linda Dueñas MD [address] [facility] [place] [address] 02/07/2025 10:30 AM SHOOTING GALLERY OPERATOR Appointment [address] [address] Linda Dueñas MD [address] [facility] [place] [address] 02/07/2025 11:00 AM SHOOTING GALLERY OPERATOR [facility] General Surgery [address] [place] [phone] Linda Dueñas MD [address] [facility] [place] [address] documented as of this encounter Visit Diagnoses Not on filedocumented in this encounter Care Teams Union Carpenter Relationship Specialty Start Date End Date Demar Campbell MD [address] [phone] PCP - General 08/08/17 documented as of this encounter
--- OUTSIDE RECORDS SUMMARY | 2024-03-19 00:53 | XMS_ITS | Encounter Summary ---
Author Organization [facility] Address [address] [place] [place] [address] Care Team Providers Care Yarn Carrier Name Role Phone Demar Campbell MD Primary Care Provider [phone] Reason for Visit * Auth/Cert Specialty Diagnoses / Procedures Referred By Contac t Referred To Contact Diagnoses Ulcerative pancolitis without complication (HCC) K51.00 Ulcerative pancolitis without complication Procedures [place] ED EGD FLEX TRANSORAL DX NC COLONOSCOPY,BIOPSY ESOPHAGOGASTRODUODENOSCOPY (EGD) DIAGNOSTIC COLONOSCOPY DIAGNOSTIC Referral ID Status Reason Start Date Expiration Date Visits Re quested Visits Authorized [id number] 1 1 Encounter Details Date Type Department Care Team (Latest Contact Info) Description 12/29/2018 1:00 PM CDT - 12/29/2018 2:00 PM CDT Surgery [facility] ENDOSCOPY [address] [place] [address] Mara Latif MD Need updated address ESOPHAGOGASTRODUODENOSCOPY (EGD) DIAGNOSTIC Surgery Details Date/Time Status Location OR Service Patient Class Case Class Case Type Trauma Case? 12/29/2018 1:00 PM Posted [facility] Endoscopy ENDO 3 Gastroenterology Surgery Day Care Panel 1 Procedure LRB Anes Op Region Wound Class Comments ESOPHAGOGASTRODUODENOSCOPY ( EGD) DIAGNOSTIC N/A MAC Abdomen NA A. duodenal bx normal EGD COLONOSCOPY DIAGNOSTIC N/A MAC NA B. right colon bx C. colon polyps-bx x2 D. left colon bx E. rectal bx rectal inflammation/ulcer, hemorrhoids Surgeon Surgeon Role Service Panel Mara Latif MD Primary Gastroenterology 1 Special Needs Please schedule EGD and colonoscopy with me next week. Thanks documented in this encounter Social History Tobacco [...] No 12/29/2018 documented as of this encounter Discharge Instructions * Discharge Instructions* Samra Jackson RN - 12/29/2018 4:01 PM CDT Images from the original note were not included. Patient Education Patient Education Colonoscopy WHAT YOU NEED TO KNOW: A colonoscopy is a procedure to examine the inside of your colon (intestine) with a scope. Polyps or tissue growths may have been removed during your colonoscopy. It is normal to feel bloated and to have some abdominal discomfort. You should be passing gas. If you have hemorrhoids or you had polypsremoved, you may have a small amount of bleeding. DISCHARGE INSTRUCTIONS: Call your doctor if: ?? You have a large amount of bright red blood in your bowel movements. ?? Your abdomen is hard and firm and you have severe pain. ?? You have sudden trouble breathing. ?? You develop a rash or hives. ?? You have a fever within 24 hours of your procedure. ?? You have not had a bowel movement for 3 days after your procedure. ?? You have questions or concerns about your condition or care. After your colonoscopy: ?? Do not lift, strain, or run for 3 days. ?? Rest as much as possible. You have been given medicine to relax you. Do not drive or make important decisions for at least 24 hours. Return to your normal activity as directed. ?? Relieve gas and discomfort from bloating by lying on your left side with a heating pad on your abdomen. You may need to take short walks to help the gas move out. Eat small meals until bloating isrelieved. If you had polyps removed: For 7 days after your procedure: ?? Do not take aspirin. ?? Do not go on long car rides. Help prevent constipation: ?? Eat a variety of healthy foods. Healthy foods include fruit, vegetables, whole-grain breads, low-fat dairy products, beans, lean meat, and fish. Ask if you need to be on a special diet. Your healthcare provider may recommend that you eat high-fiber foods such as cooked beans. Fiber helps you have regular bowel movements. ?? Drink liquids as directed. Adults should drink between 9 and 13 eight-ounce cups of liquid everyday. Ask what amount is best for you. For most people, good liquids to drink are water, juice, and milk. ?? Exercise as directed. Talk to your healthcare provider about the best exercise plan for you. Exercise can help prevent constipation, decrease your blood pressure and improve your health. Follow up with your healthcare provider as directed: Write down your questions so you remember to ask them during your visits. ?? Copyright [employer] 2019 Information is for End User's use only and may not be sold, redistributed or otherwise used for commercial purposes. All illustrations and images included in CareNotes?? are the copyrighted property of [employer]. or [employer] The above information is an first aid director only. It is not intended as medical advice for individual conditions or treatments. Talk to your doctor, nurse or pharmacist before following any medical regimen to see if it is safe and effective for you. Upper Endoscopy WHAT YOU NEED TO KNOW: An upper endoscopy is also called an upper gastrointestinal (GI) endoscopy, or an esophagogastroduodenoscopy (EGD). You may feel bloated, gassy, or have some abdominal discomfort after your procedure. Your throat may be sore for 24 to 36 hours. You may burp or pass gas from air that is still insideyour body. DISCHARGE INSTRUCTIONS: Call 911 if: ?? You have sudden chest pain or trouble breathing. Seek care immediately if: ?? You feel dizzy or faint. ?? You have trouble swallowing. ?? You have severe throat pain. ?? Your bowel movements are very dark or black. ?? Your abdomen is hard and firm and you have severe pain. ?? You vomit blood. Contact your healthcare provider if: ?? You feel full or bloated and cannot burp or pass gas. ?? You have not had a bowel movement for 3 days after your procedure. ?? You have neck pain. ?? You have a fever or chills. ?? You have nausea or are vomiting. ?? You have a rash or hives. ?? You have questions or concerns about your [...] ask them during your visits. ?? Copyright [employer] 2019 Information is for End User's use only and may not be sold, redistributed or otherwise used for commercial purposes. All illustrations and images included in CareNotes?? are the copyrighted property of [employer] or [employer] The above information is an first aid director only. It is not intended as medical advice for individual conditions or treatments. Talk to your doctor, nurse or pharmacist before following any medical regimen to see if it is safe and effective for you. documented in this encounter Medications at Time of Discharge Medication Sig Dispensed Refills Start Date End Date Cholecalciferol (VITAMIN D3) 77659 units capsule Take 1 capsule by mouth every 7 days for 8 doses 8 capsule 12/24/2018 02/12/2019 folic acid (FOLVITE) 1 MG tablet Take 1 tablet by mouth once daily for 90 days 90 tablet 12/24/2018 03/24/2019 polyethylene glycol (GOLYTELY) 236 g solution Drink 1/2 of prep at 5pm the night before test. Finish the prep at 4am the day of test. 1 bottles 12/28/2018 02/24/2019 documented as of this encounter H&P Notes * Mara Latif MD - 12/29/2018 2:48 PM CDT PRE-PROCEDURE HISTORY & PHYSICAL NOTE 12/29/2018 2:48 PM Patient: Tessy Medina, date of 1985 Procedure(s) planned: EGD and colonsocopy Indication(s): Portal hypertension on imaging evaluate for sequale of portal hypertension, nausea. Ulcerative colitis History: Patient is a 33 year old female presenting with the chief complaint of EGD and colonoscopy History of yoder UC diagnosed in 2014 off meds for about a year having diarrhea There are no active problems to display for this patient. PMH: UC PE Microcytic anemia BRCA 2 positive Portal HTN on CT NO family hx of colon cancer PSH C section Social History Socioeconomic History ??? [...] file Gets together: Not on file Attends pentecostal service: Not on file Active member of [...] History Narrative ??? Not on file No Known Allergies No current facility-administered medications on file prior to encounter. Current Outpatient Medications on File Prior to Encounter Medication Sig Dispense Refill ??? Cholecalciferol (VITAMIN D3) 14009 units capsule Take 1 capsule by mouth every 7 days for 8 doses 8 capsule 0 ??? folic acid (FOLVITE) 1 MG tablet Take 1 tablet by mouth once daily for 90 days 90 tablet 0 Current Facility-Administered Medications Medication ??? 0.9% NaCl infusion Facility-Administered Medications Ordered in Other Encounters Medication ??? 0.9% NaCl infusion ROS No Chest pain, no plapitations No shortness of breath No abdominal pain Physical Exam: BP 95/51 Pulse 69 Temp 98.1 ??F (36.7 ??C) (Oral) Resp 16 Ht 1.651 m (5' 5 ) Wt 59 kg (130 lb) BnX872% BMI 21.63 kg/m2 General appearance: AOx3, no acute distress Lab Results Component Value Date/Time HGB 10.3 (L) 12/23/2018 11:32 AM CREATININE 0.5 (L) 12/23/2018 11:32 AM Sedation Plan: Monitored Anesthesia Care (MAC) by the anesthesia team. Procedure Plan: Based on the above assessment, we will perform the procedures indicated above. I have discussed the plan, risks, benefits and alternatives with the patient or guardian. When assessment above was not obtained immediately before the procedure, I have reassessed this patient and there are no changes. EGD and colonoscopy with MAC ASA II documented in this encounter Nursing Notes * Samra Jackson, RN - 12/29/2018 4:17 PM CDT Patient discharged at 1635. Provided with AVS and Provation report. Denies pain. Dr. Latif discussed instructions with patient. Verbalizes understanding of discharge instructions. VSS. Tolerating PO intake. Voided prior to leaving. Family informed. documented in this encounter Plan of Treatment Upcoming Encounters Date Type Department Care Team (Late st Contact Info) Description 04/09/2024 8:00 AM BOOSTER PLANT OPERATOR [facility] [address] [place] [phone] Gigi Bueno MD [address] [place] [address] [place] [address] 07/01/2024 1:30 PM CDT Office Visit [facility] - GI [address] [place] [phone] Milka Soni MD [address] [place] [phone] 08/02/2024 9:30 AM CDT Appointment [address] [phone] Linda Dueñas MD [address] [place] [address] 08/02/2024 10:30 AM CDT Office Visit [facility] - General Surgery [address] [place] [phone] Linda Dueñas MD [address] [facility] [place] [address] 02/07/2025 10:30 AM BOOSTER PLANT OPERATOR Appointment [address] [address] Linda Dueñas MD [address] [place] [address] 02/07/2025 11:00 AM BOOSTER PLANT OPERATOR [facility] [address] [place] [phone] Linda Dueñas MD [address] [place] [address] documented as of this encounter Procedures Procedure Name Priority Date/Time Associated Diagnosis Comments EGD Routine 12/29/2018 3:06 PM CDT PATHOLOGY TISSUE Routine 12/29/2018 3:02 PM CDT Ulcerative pancolitis without complication (HCC) NC COLONOSCOPY, DIAGNOSTIC 12/29/2018 2:59 PM CDT Ulcerative pancolitis without complication (HCC) Special Needs Please schedule EGD and colonoscopy with me next week. Thanks [place] ED EGD FLEX TRANSORAL DX 12/29/2018 2:59 PM CDT Ulcerative pancolitis without complication (HCC) Special Needs Please schedule EGD and colonoscopy with me next week. Thanks ENDOSCOPY, COLON, DIAGNOSTIC Routine 12/29/2018 2:46 PM CDT HCG URINE QUALITATIVE - POINT OF CARE Routine 12/29/2018 2:14 PM CDT documented in this encounter Results * EGD (12/29/2018 3:06 PM CDT) Report Endoscopy POC Endoscopy Department Report _ Patient Name: Tessy Mednia ?Procedure Date: 12/29/2018 3:06 PM ?Date of [...] bowel preparation was evaluated using the ?BBPS ([place] Bowel Preparation Scale) with scores ?of: Right [...] Procedure Code(s): ? --- Professional --- ? 53093, Colonoscopy, flexible; with biopsy, single or multiple Diagnosis Code(s): ?--- Professional --- ?K64.8, Other hemorrhoids ?D12.5, Benign neoplasm of sigmoid colon ?D12.2, Benign neoplasm of ascending colon ?K62.6, Ulcer of anus and rectum ?K62.89, Other specified diseases of anus and rectum ?K51.20, Ulcerative (chronic) proctitis without ?complications CPT copyright 2016 [employer]. All rights reserved. The codes documented in this report are preliminary and upon chief optometry service review may be revised to meet current compliance requirements. ____ Mara Latif MD 12/29/2018 3:56:43 PM Note Initiated On: 12/29/2018 3:06 PM Number of Addenda: 0 ? [facility] ? [address] [place] [address] [facility] 12/29/2018 3:06 PM CDT Mara Latif MD GI PROCEDURE ORDER АНДРЕЙ [facility] * PATHOLOGY TISSUE (12/29/2018 3:02 PM CDT) Case Report Surgical Pathology Report ? Case: [id number] ? Authorizing Provider: ??Mara Latif MD ?Collected: ? 12/29/2018 03:02 PM ? Ordering Location: ? [facility] ENDOSCOPY ?Received: ?12/29/2018 06:34 PM ? Pathologist: ? Jessa Bland MD ? Specimens: ?? A) - Duodenum, duodenal bx ? B) - Large Intestine, Right/Ascending Colon, right colon bx ? C) - Colon, colon polyps x2 ? D) - Large Intestine, Left/Descending Colon, left colon bx ? E) - Rectum, rectal bx ? 12/31/2018 4:19 PM CDT [facility] Final Diagnosis Small intestine, duodenum, biopsy (A): - Mild intraepithelial lymphocytosis - Intact villous and crypt architecture - See comment Large intestine, right colon, biopsy (B): - No histopathologic abnormality - No granulomas or dysplasia ?? Large intestine, colon polyps, biopsy (C): - Hyperplastic polyp Large intestine, left colon, biopsy (D): - No histopathologic abnormality - No granulomas or dysplasia Large intestine, rectum, biopsy (E): - Ulcer and reactive changes - Negative for CMV 12/31/2018 4:19 PM CDT [facility] Microscopic Description and Comment Microscopic examination including multiple deeper levels substantiates the final diagnosis. The duodenal biopsy (part A) has mild intraepithelial lymphocytosis, though with intact villous architecture and without crypt hyperplasia or a prominent chronic inflammatory infiltrate. Intrepithelial lymphocytosis is not a specific finding, but can be a mild manifestation of gluten sensitive enteropathy, though H. pylori infection, bacterial overgrowth, or other infection, peptic injury, drug effect (e.g., NSAIDs) could have similar histologic manifestations. Additional clinical correlation is recommended. The rectal biopsy has a fragment of necroinflammatory debris and several superficial fragments of mucosa with prominent lamina propria fibrosis. The findings are suggestive of mucosal injury due to prolapse or intraluminal pressure, though given the ulcer debris, an immunostain for CMV was performed (block E, with appropriate control staining) and is negative. 12/31/2018 4:19 PM [facility] PATH[facility]Y [facility] Clinical History The patient is a 33-year-old woman with chronic ulcerative colitis, abnormal CT of the GI tract, diarrhea and nausea. Operative procedure/findings: EGD- normal duodenum, biopsied; Colonoscopy- normal colon, biopsied; two (2 to 3 mm) polyps in the sigmoid colon and in the ascending colon, biopsied; a single (solitary) ulcer in the rectum, biopsied; erythematous mucosa in the rectum, biopsied. 12/31/2018 4:19 PM [facility] PATHOLOGY LAB Gross Description The requisition and specimen label(s) are identified with the patient name, Tessy Medina. Received in formalin, specimen A, duodenal bx , are five fragments of soft, yellow-onofre tissue ranging from 0.1 to 0.2 cm in greatest dimension, with an aggregate measurement of 1.0 x 0.2 x 0.2 cm. The specimen is inked with hematoxylin and submitted in toto in cassette A1. Received in formalin, specimen B, right colon bx , are multiple fragments of soft, yellow-onofre tissue ranging from 0.1 to 0.2 cm in greatest dimension, with an aggregate measurement of 0.8 x 0.4 x 0.2 cm. The specimen is inked with hematoxylin and submitted in toto in cassette B1. Received in formalin, specimen C, colon polyps x2 , are three fragments of soft, yellow-onofre tissue ranging from 0.1 to 0.3 cm in greatest dimension, with an aggregate measurement of 0.5 x 0.4 x 0.2 cm. The specimen is inked with hematoxylin and submitted in toto in cassette C1. Received in formalin, specimen D, left colon bx , are six fragments of soft, yellow-onofre tissue ranging from 0.2 to 0.3 cm in greatest dimension, with an aggregate measurement of 1.0 x 0.3 x 0.2 cm. The specimen is inked with hematoxylin and submitted in toto in cassette D1. Received in formalin, specimen E, rectal bx , are two soft, yellow-onofre tissue fragments measuring 0.1 x 0.1 x 0.1 cm and 0.3 x 0.1 x 0.1 cm. The specimen is inked with hematoxylin and submitted in toto in cassette E1. Note, the smaller fragment may be lost to processing. JH/ 12/31/2018 4:19 PM T [facility] PATH[facility]Y [facility] Disclaimer The performance characteristics of all immunohistochemical and indirect immunofluorescence stains (if any) cited in this report were determined by the Histopathology Laboratory of [facility]. Some of these tests were developed by [...] and interpreted by the attending (teaching) pathologist. 12/31/2018 4:19 PM [facility] Embedded Images 12/31/2018 4:19 PM [facility] Biopsy, NOS PART OF DUODENUM / Unknown 12/29/2018 3:02 PM CDT 12/29/2018 6:34 PM CDT Comment:Pre-op diagnosis: K51.00 Ulcerative pancolitis without complication Biopsy, NOS (Large Intestine, Right/Ascending Colon) 12/29/2018 3:17 PM CDT 12/29/2018 6:34 PM CDT Comment:Pre-op diagnosis: K51.00 Ulcerative pancolitis without complication Biopsy, NOS (Large Intestine, Left/Descending Colon) 12/29/2018 3:27 PM CDT 12/29/2018 6:34 PM CDT Comment:Pre-op diagnosis: K51.00 Ulcerative pancolitis without complication Biopsy, NOS COLON PART / Unknown 12/29/2018 3:33 PM CDT 12/29/2018 6:34 PM CDT Comment:Pre-op diagnosis: K51.00 Ulcerative pancolitis without complication Biopsy, NOS ENTIRE RECTUM / Unknown 12/29/2018 3:34 PM CDT 12/29/2018 6:34 PM CDT Comment:Pre-op diagnosis: K51.00 Ulcerative pancolitis without complication Mara Latif MD LAB - PATHOLOGY/MALLIKA FRAGA ORDERABLES [facility] [address] [place] [address], [facility] [phone] * ENDOSCOPY, COLON, DIAGNOSTIC (12/29/2018 2:46 PM [...] Procedure Code(s): ? --- Professional --- ? [address]9314, Esophagogastroduode noscopy, flexible, transoral; with biopsy, ? single or multiple Diagnosis Code(s): ?--- Professional --- ?R19.7, Diarrhea, unspecified ?R11.0, Nausea ?R93.3, Abnormal findings on diagnostic imaging of ?other parts of digestive tract CPT copyright 2016 [employer]. All rights reserved. The codes documented in this report are preliminary and upon chief optometry service review may be revised to meet current compliance requirements. ___ Mara Latif MD 12/29/2018 3:45:54 PM Note Initiated On: 12/29/2018 2:46 PM Number of Addenda: 0 ? [facility] ? [address] [place] [address] [facility] 12/29/2018 2:46 PM CDT Mara aLtif MD GI PROCEDURE ORDER АНДРЕЙ [facility] * HCG URINE QUALITATIVE - POINT OF CARE (12/29/2018 2:14 PM CDT) HCG Qual Urine Negative Negative [facility] P OCT TESTING QC Verified Yes Yes [facility] POCT TESTING Urine URINE / Unknown 12/29/2018 2 :14 PM CDT Mara Latif MD LAB - POINT OF CAR E ORDERABLES [facility] POCT TESTING [address] [phone] documented in this encounter Visit Diagnoses Diagnosis Ulcerative pancolitis without complication (HCC) Ulcerative pancolitis without complication (HCC) documented in this encounter Administered Medications Inactive Administered Medications - up to 3 most recent administrations Medication Order MAR Action Action Date Dose Rate Site 0.9% NaCl infusion at 20 mL/hr, Intravenous, CONTINUOUS, Starting on 12/29/18 at 1500, Until 12/29/18 at 1729 documented in this encounter Active and Recently Administered Medications Times are shown in CDT. Continuous Medication Order 12/27/2018 12/28/2018 12/29/2018 0.9% NaCl infusion at 20 mL/hr, Intravenous, CONTINUOUS, Starting on 12/29/18 at 1500, Until 12/29/18 at 1729 1500 (Due) documented in this encounter Care Teams Yarn Carrier Relationship Specialty Start Date End Date Demar Campbell MD [address] [facility] [address] [place] [phone] PCP - General 08/08/17 documented as of this encounter
--- OUTSIDE RECORDS SUMMARY | 2024-03-19 00:53 | XMS_ITS | Encounter Summary ---
Author Organization [facility] Address [address] [facility] [place] [address] Care Team Providers Care Automatic Furnace Operator Name Role Phone Demar Campbell MD Primary Care Provider [phone] Reason for Visit * Reason Onset Date Comments Results 01/08/2019 Encounter Details Date Type Department Care Team (Late Contact Info) Description 01/08/2019 Telephone [facility] [address] [place] [address] Mara Latif MD Need updated address Results [...] Telephone Encounter - Mara Latif MD - 01/08/2019 2:17 PM CDT Attempted to call patient to inform her of results. No answer, will discuss at time of clinic visit documented in this encounter Plan of Treatment Upcoming Encounters Date Type Department Care Team (Late st Contact Info) Description 04/09/2024 8:00 AM MACHINE CAGE MAKER Office Visit [facility] - GI [address] [place] [phone] Gigi Bueno MD [address] [place] [address] [place] [address] 07/01/2024 1:30 PM CDT Office Visit [facility] - GI [address] [place] [phone] Milka Soni MD [address] [place] [phone] 08/02/2024 9:30 AM CDT Appointment [id number] [place] [phone] Linda Dueñas MD [address] [facility] [address] 08/02/2024 10:30 AM CDT Office Visit [facility] - General Surgery [address] [place] [phone] Linda Dueñas MD [address] [facility] SUR[facility] [address] 02/07/2025 10:30 AM MACHINE CAGE MAKER Appointment [address] [address] Linda Dueñas MD [address] [facility] SUR[facility] [address] 02/07/2025 11:00 AM MACHINE CAGE MAKER Office Visit [facility] - General Surgery [address] [place] [phone] Linda Dueñas MD [address] [facility] SUR[facility]ERY [facility]PART[facility] [address] documented as of this encounter Visit Diagnoses Not on filedocumented in this encounter Care Teams Automatic Furnace Operator Relationship Specialty Start Date End Date Demar Campbell MD [address] [facility] [address] [facility] [address] [place] [phone] PCP - General 08/08/17 documented as of this encounter
--- OUTSIDE RECORDS SUMMARY | 2024-03-19 00:53 | XMS_ITS | Encounter Summary ---
Author Organization [facility] Address [address] [facility] [place] [address] Care Team Providers Care Hide Examiner Name Role Phone Demar Campbell MD Primary Care Provider [phone] Reason for Visit * Reason Comments Future Appointment Encounter Details Date Type Department Care Team (Late st Contact Info) Description 01/28/2019 Telephone [facility] - [address] [place] [address] Demar Campbell MD [address] [place] [address] Future Appointment Social History Tobacco [...] encounter Progress Notes * Rubi Mars - 01/28/2019 9:34 AM CST Pt to call if date doesn't work [employer] documented in this encounter Plan of Treatment Upcoming Encounters Date Type Department Care Team (Late st Contact Info) Description 04/09/2024 8: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 [employer] Office Visit [facility] - GI [address] [place] [phone] Gigi Bueno MD [address] [place] [address] [place] [address] 07/01/2024 1:30 PM CDT Office Visit [facility] - GI [address] [place] [phone] Milka Soni MD [address] [place] [phone] 08/02/2024 9:30 AM CDT Appointment [facility] [address] [place] [address] Linda Dueñas MD [address] [facility] [place] [address] 08/02/2024 10:30 AM CDT Office Visit [facility] - General Surgery [address] [place] [address] Linda Dueñas MD [address] [place] [address] 02/07/2025 10:30 AM [employer] Appointment [address] [address] Linda Dueñas MD [address] [place] [address] 02/07/2025 11: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 [employer] Office Visit [facility] - General Surgery [address] [place] [phone] Linda Dueñas MD [address] [place] [address] documented as of this encounter Visit Diagnoses Not on filedocumented in this encounter Care Teams Hide Examiner Relationship Specialty Start Date End Date Demar Campbell MD [address] [facility] [address] [place] [phone] PCP - General 08/08/17 documented as of this encounter
--- OUTSIDE RECORDS SUMMARY | 2024-03-19 00:53 | XMS_ITS | Encounter Summary ---
Author Organization [facility] Address [address] [facility] [place] [address] Care Team Providers Care Shovel Engineer Name Role Phone Demar Campbell MD Primary Care Provider [phone] Reason for Visit * Auth/Cert Specialty Diagnoses / Procedures Referred By Contac t Referred To Contact Diagnoses Ulcerative pancolitis without complication (HCC) K51.00 Ulcerative pancolitis without complication Procedures [place] ED EGD FLEX TRANSORAL DX [place] COLONOSCOPY,BIOPSY ESOPHAGOGASTRODUODENOSCOPY (EGD) DIAGNOSTIC COLONOSCOPY DIAGNOSTIC Referral ID Status Reason Start Date Expiration Date Visits Re quested Visits Authorized [id number] 1 1 Encounter Details Date Type Department Care Team (Latest Contact Info) Description 12/29/2018 12:36 PM CDT - 12/29/2018 4:17 PM CDT Hospital Encounter [facility] [address] [place] [address] Mara Latif MD Need updated address Gastroenterology Discharge Disposition: Home or Self Care Social [...] Sign Reading Time Taken Comments Blood Pressure 87/46 12/29/2018 4:06 PM CDT Pulse 63 12/29/2018 4:06 PM CDT Temperature 36.3 ??C (97.4 ??F) 12/29/2018 3:51 PM CD T Respiratory Rate 11 12/29/2018 4:06 PM CDT Oxygen Saturation 100% 12/29/2018 4:06 PM CDT Inhaled Oxygen Concentration - - Weight 59 kg (130 lb) 12/29/2018 2:18 PM CDT Height 165.1 cm (5' 5 ) 12/29/2018 2:18 PM CDT Body Mass Index 21.63 12/29/2018 2:18 PM CDT documented in this encounter Functional [...] move out. Eat small meals until bloating is relieved. If you had polyps removed: For 7 [...] ask them during your visits. ?? Copyright [employer] 2019 Information is for End User's use only and may not be sold, redistributed or otherwise used for commercial purposes. All illustrations and images included in CareNotes?? are the copyrighted property of [employer]. or [employer] The above information is an nutrition aide only. It is not intended as medical [...] ask them during your visits. ?? Copyright [employer] 2019 Information is for End User's use only and may not be sold, redistributed or otherwise used for commercial purposes. All illustrations and images included in CareNotes?? are the copyrighted property of [employer]. or [employer] The above information is an nutrition aide only. It is not intended as medical advice for individual conditions or treatments. Talk to your doctor, nurse or pharmacist before following any medical regimen to see if it is safe and effective for you. documented in this encounter Medications at Time of Discharge Medication Sig Dispensed Refills Start Date End Date Cholecalciferol (VITAMIN D3) 08420 units capsule Take 1 capsule by mouth [...] file Gets together: Not on file Attends orthodox service: Not on file Active member of [...] Sig Dispense Refill ??? Cholecalciferol (VITAMIN D3) 54682 units capsule Take 1 capsule by mouth [...] 5 ) Wt 59 kg (130 lb) VdW547% BMI 21.63 kg/m2 General appearance: AOx3, no [...] in this encounter Nursing Notes * Samra Jackson RN - 12/29/2018 4:17 PM CDT Patient discharged at 1635. Provided with AVS and Provation report. Denies pain. Dr. Latif discussed instructions with patient. Verbalizes understanding of discharge instructions. VSS. Tolerating PO intake. Voided prior to leaving. Family informed. 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 - General Surgery [address] [place] [phone] Linda Dueñas MD [address] [place] [address] 02/07/2025 10:30 AM PROMOTION MANAGER Appointment [address] [address] Linda Dueñas MD [address] [place] [address] 02/07/2025 11:00 AM PROMOTION MANAGER Office Visit [facility] - General Surgery [address] [place] [phone] Linda Dueñas MD [address] [place] [address] [phone] (work) documented as of this encounter Procedures Procedure Name Priority Date/Time Associated Diagnosis Comments EGD Routine 12/29/2018 3:06 PM CDT PATHOLOGY TISSUE Routine 12/29/2018 3:02 PM CDT Ulcerative pancolitis without complication (HCC) [place] COLONOSCOPY, DIAGNOSTIC 12/29/2018 2:59 PM CDT Ulcerative pancolitis without complication (HCC) Special Needs Please schedule EGD and colonoscopy with me next week. Thanks [place] ED EGD FLEX TRANSORAL DX 12/29/2018 2:59 [...] bowel preparation was evaluated using the ?BBPS ([place] Bowel Preparation Scale) with scores ?of: Right [...] Procedure Code(s): ? --- Professional --- ? 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 All rights reserved. The codes documented in this report are preliminary and upon heat and vent aircraft mechanic review may be revised to meet current compliance requirements. ____ Mara Latif MD 12/29/2018 3:56:43 PM Note Initiated On: 12/29/2018 3:06 PM Number of Addenda: 0 ? [facility] ? [address] [place] [address] [facility] 12/29/2018 3:06 PM CDT Mara Latif MD GI PROCEDURE ORDER АНДРЕЙ [facility] * PATHOLOGY TISSUE (12/29/2018 3:02 PM CDT) Case Report Surgical Pathology Report ? Case: [id number] ? Authorizing Provider: ??Mara Latif MD ?Collected: ? 12/29/2018 03:02 PM ? Ordering Location: ? [facility] ?Received: ?12/29/2018 06:34 PM ? Pathologist: [...] Negative for CMV 12/31/2018 4:19 PM CDT [facility] Microscopic Description and Comment Microscopic [...] staining) and is negative. 12/31/2018 4:19 PM [facility] Clinical History The [...] in the rectum, biopsied. 12/31/2018 4:19 PM [facility] Gross Description The [...] smaller fragment may be lost to processing. JOSHUA/ 12/31/2018 4:19 PM CDT [facility] Disclaimer The performance characteristics of all immunohistochemical and indirect immunofluorescence stains (if any) cited in this report were determined by the [facility]. Some of these tests were developed [...] the attending (teaching) pathologist. 12/31/2018 4:19 PM T [facility] Embedded Images 12/31/2018 4:19 PM [facility] Biopsy, NOS PART [...] ORDERABLES [facility] [address] [place] [address], [facility] [phone] * ENDOSCOPY, COLON, DIAGNOSTIC (12/29/2018 2:46 PM [...] Procedure Code(s): ? --- Professional --- ? 96783, Esophagogastroduode noscopy, flexible, transoral; with biopsy, ? single or multiple Diagnosis Code(s): ?--- Professional --- ?R19.7, Diarrhea, unspecified ?R11.0, Nausea ?R93.3, Abnormal findings on diagnostic imaging of ?other parts of digestive tract CPT copyright 2016 [employer]. All rights reserved. The codes documented in this report are preliminary and upon heat and vent aircraft mechanic review may be revised to meet current compliance requirements. ___ Mara Latif MD 12/29/2018 3:45:54 PM Note Initiated On: 12/29/2018 2:46 PM Number of Addenda: 0 ? [facility] ? [address] [place] [address] [facility] 12/29/2018 2:46 PM CDT Mara Latif MD GI PROCEDURE ORDER АНДРЕЙ [facility] * HCG URINE QUALITATIVE - POINT OF CARE (12/29/2018 2:14 PM CDT) HCG Qual Urine Negative Negative [facility] P OCT TESTING QC Verified Yes Yes [facility] POCT TESTING Urine URINE / Unknown 12/29/2018 2 :14 PM CDT Mara Latif MD LAB - POINT OF CAR E ORDERABLES [facility] POCT TESTING [address] [phone] documented in this encounter Visit Diagnoses Diagnosis [...] (Due) documented in this encounter Care Teams Shovel Engineer Relationship Specialty Start Date End Date Demar Campbell MD [address] [facility] [address] [place] [address] PCP - General 08/08/17 documented as of this encounter
--- OUTSIDE RECORDS SUMMARY | 2024-03-19 00:53 | XMS_ITS | Encounter Summary ---
Author Organization [facility] Address [address] [facility] [place] [address] Care Team Providers Care Assistant Name Role Phone Demar Campbell MD Primary Care Provider [phone] Encounter Details Date Type Department Care Team (Latest Contact Info) Description 12/23/2018 11:26 AM CDT - 12/23/2018 11:59 PM T Hospital Encounter [facility] DRAW STATION [address] [place] [phone] Mara Latif MD Need updated address Discharge [...] on file documented as of this encounter Medications at Time of Discharge Medication Sig Dispensed Refills Start Date End Date Cholecalciferol (VITAMIN D3) 68447 units capsule Take 1 capsule by mouth every 7 days for 8 doses 8 capsule 12/24/2018 02/12/2019 folic acid (FOLVITE) 1 MG tablet Take 1 tablet by mouth once daily for 90 days 90 tablet 12/24/2018 03/24/2019 documented as of this encounter Plan of Treatment Upcoming Encounters Date Type Department Care Team (Late st Contact Info) Description 04/09/2024 8:00 AM DRONE PILOT Office Visit [facility] GI [address] [facility], [place] [phone] Gigi Bueno MD [address] [place] [address] [place] [address] 07/01/2024 1:30 PM CDT Office Visit [facility] [address] [place] [address], [place] [phone] Milka Soni MD [address] [place] [phone] 08/02/2024 9:30 AM CDT Appointment [address] [phone] Linda Dueñas MD [address] [place] [address] 08/02/2024 10:30 AM CDT Office Visit [facility] - General Surgery [address] [place] [phone] Linda Dueñas MD [address] [place] [address] 02/07/2025 10:30 AM DRONE PILOT Appointment [address] [address] Linda Dueñas MD [address] [place] [address] 02/07/2025 11:00 AM DRONE PILOT Office Visit [facility] - General Surgery [address] [place] [phone] Linda Dueñas MD [address] [place] [address] documented as of this encounter Procedures Procedure Name Priority Date/Time Associated Diagnosis Comments QUANTIFERON-TB GOLD PLUS 4-TUBE Routine 12/23/2018 11:32 AM CDT Ulcerative pancolitis without complication (HCC) C-REACTIVE PROTEIN Routine 12/23/2018 11 :32 AM CDT Ulcerative pancolitis without complication (HCC) TRANSFERRIN Routine 12/23/2018 11:32 AM CDT Ulcerative pancolitis without complication (HCC) VITAMIN D 25-HYDROXY Routine 12/23/2018 11:32 AM CDT Ulcerative pancolitis without complication (HCC) ERYTHROCYTE SEDIMENTATION RATE Routine 12/23/2018 11:32 AM CDT Ulcerative pancolitis without complication (HCC) RBC MORPHOLOGY Routine 12/23/2018 11:32 AM CDT Ulcerative pancolitis without complication (HCC) CBC W AUTO DIFFERENTIAL Routine 12/23/2018 11:32 AM CDT Ulcerative pancolitis without complication (HCC) COMPREHENSIVE METABOLIC PANEL Routine 12/23/2018 11:32 AM CDT Ulcerative pancolitis without complication (HCC) IRON BLOOD Routine 12/23/2018 11:32 AM CDT Ulcerative pancolitis without complication (HCC) HEPATITIS B SURFACE ANTIBODY Routine 12/23/2018 11:32 AM CDT Ulcerative pancolitis without complication (HCC) HEPATITIS B CORE ANTIBODY TOTAL Routine 12/23/2018 11:32 AM CDT Ulcerative pancolitis without complication (HCC) HEPATITIS B SURFACE ANTIGEN W RFLX CONFIRMATION Routine 12/23/2018 11:32 AM CDT Ulcerative pancolitis without complication (HCC) FOLATE Routine 12/23/2018 11:32 AM CDT Ulcerative pancolitis without complication (HCC) VITAMIN B12 Routine 12/23/2018 11:32 AM CDT Ulcerative pancolitis without complication (HCC) HEPATITIS A ANTIBODY Routine 12/23/2018 11:32 AM CDT Ulcerative pancolitis without complication (HCC) FERRITIN Routine 12/23/2018 11:32 AM CDT Ulcerative pancolitis without complication (HCC) documented in this encounter Results * (ABNORMAL) RBC MORPHOLOGY (12/23/2018 11:32 AM CDT) Anisocytosis 1+(A) None 12/23/2018 1:23 PM CDT [facility] Poikilocytes 1+(A) None 12/23/2018 1:23 PM CDT [facility] Microcytes 1+(A) None 12/23/2018 1:23 PM CDT [facility] Hypochromia 1+(A) None 12/23/2018 1:23 PM CDT [facility] Schistocytes 1+(A) None 12/23/2018 1:23 PM CDT [facility] Ovalocytes 1+(A) None 12/23/2018 1:23 PM CDT [facility] Tear Drop Cells 1+(A) None 9 1:23 PM CDT [facility] Blood BLOOD SPECIMEN / Unknown Lab Venipuncture / Unknown 12/23/2018 11:32 AM CDT 12/23/2018 11:55 AM CDT Mara Latif MD LAB - HEMATOLOGY O RDERABLES Performing Organization Address City/State/[facility] Co de Phone Number [facility] [address] [place] [address] * (ABNORMAL) VITAMIN D 25-HYDROXY (12/23/2018 11:32 AM CDT) Vitamin D, 25 Hydroxy 12.5(L) See comment: ng/mL 12/23/2018 1:34 PM CDT [facility] Comment: The recommendations for 25-Hydroxy Vitamin D clinical decision points are as follows: ? Deficient: ? <20.0 ng/mL ? Insufficient: ??20.0 - 29.9 ng/mL ? Sufficient: ? > or =30.0 ng/mL If the 25-Hydroxy Vitamin D results are inconsitent with clinical evidence, it is recommended that follow-up testing using a method such as LC/MS/MS be performed to confirm the result. Reference: ?The Endocrine Society Clinical Practice Guidelines. 2011 ? Blood BLOOD SPECIMEN / Unknown Lab Venipuncture / Unknown 12/23/2018 11:32 AM CDT 12/23/2018 11:54 AM CDT Mara Latif MD LAB - CHEMISTRY OR DERABLES Performing Organization Address [facility]/State/[facility] Co de Phone Number [address] [phone] * (ABNORMAL) HEPATITIS B SURFACE ANTIBODY (12/23/2018 11:32 AM CDT) Hepatitis B Virus Surface Antibody Reactive( A) Non-react clif 12/23/2018 1:59 PM CDT [facility] Comment: > 12 mIU/mL Hepatitis B surface Antibody (HBsAb). Reactive for HBsAb - individual is considered immune to Hepatitis B Virus infection. Hepatitis B Surface Antibody Quantitative 101.0(H) <8.0 mIU/mL 12/23/2018 1:59 PM CDT [facility] Comment: Hepatitis B Surface Antibody Numeric Result Interpretation: ? Nonreactive: ?<8.0 mIU/mL ? Indeterminate: ??8.0 - 12.0 mIU/mL ? Reactive: ?>12.0 mIU/mL ? Blood BLOOD SPECIMEN / Unknown Lab Venipuncture / Unknown 12/23/2018 11:32 AM CDT 12/23/2018 11:57 AM CDT Mara Latif MD LAB - CHEMISTRY OR DERABLES [address] [phone] * HEPATITIS B CORE ANTIBODY (12/23/2018 11:32 AM CDT) HBc Antibody Total Non-reacti ve Non-reacti ve 12/23/2018 2:45 PM CDT [facility] Blood BLOOD SPECIMEN / Unknown Lab Venipuncture / Unknown 12/23/2018 11:32 AM CDT 12/23/2018 11:56 AM CDT Mara Latif MD LAB - CHEMISTRY OR DERABLES Performing Organization Address [facility] Co de Phone Number [address] [phone] * (ABNORMAL) HEPATITIS A ANTIBODY (12/23/2018 11:32 AM CDT) Pathologist [facility] Hepatitis A Virus Antibody Total Positive(A ) Negative 12/24/2018 5:07 AM CDT [facility] ([facility]) Blood BLOOD SPECIMEN / Unknown Lab Venipuncture / Unknown 12/23/2018 11:32 AM CDT 12/23/2018 11:57 AM CDT Narrative [facility] ([facility]) - 12/24/2018 5:07 AM CDT Performed at: ??01 - [facility] [address] [place], [place] ??[id number] [employer] Leak Tester: Frank Calderon PhD, Phone: ??[phone] Mara Latif MD LAB - CHEMISTRY OR DERABLES Performing Organization Address City/[facility]/ZIP Co de Phone Number [facility] ([facility]) [address] [place] [address] * VITAMIN B12 (12/23/2018 11:32 AM CDT) Vitamin B12 430 213 - 816 pg/mL 12/23/2018 3:55 PM CDT [facility] Blood BLOOD SPECIMEN / Unknown Lab Venipuncture / Unknown 12/23/2018 11:32 AM CDT 12/23/2018 11:54 AM CDT Mara Latif MD LAB - CHEMISTRY OR DERABLES Performing Organization Address [facility]/ZIP Co de Phone Number [address] [phone] * (ABNORMAL) FOLATE (12/23/2018 11:32 AM CDT) Folate 6.7(L) 7.0 - 31.4 ng/mL 12/23/2018 3:55 PM CDT [facility] Blood BLOOD SPECIMEN / Unknown Lab Venipuncture / Unknown 12/23/2018 11:32 AM CDT 12/23/2018 11:54 AM CDT Mara Latif MD LAB - CHEMISTRY OR DERABLES Performing Organization Address [facility] Co de Phone Number [address] [phone] * (ABNORMAL) TRANSFERRIN (12/23/2018 11:32 AM CDT) Transferrin 168(L) 174 - 382 mg/dL 12/23/2018 3:09 PM CDT [facility] Transferrin Saturation % 57(H) 16 - 50 % 12/23/2018 3:09 PM CDT [facility] Blood BLOOD SPECIMEN / Unknown Lab Venipuncture / Unknown 12/23/2018 11:32 AM CDT 12/23/2018 11:57 AM CDT Mara Latif MD LAB - CHEMISTRY OR DERABLES Performing Organization Address [facility] Co de Phone Number [address] [phone] * IRON BLOOD (12/23/2018 11:32 AM CDT) Iron 120 40 - 150 mcg/dL 12/23/2018 12:54 PM CDT [facility] Blood BLOOD SPECIMEN / Unknown Lab Venipuncture / Unknown 12/23/2018 11:32 AM CDT 12/23/2018 11:57 AM CDT Mara Latif MD LAB - CHEMISTRY OR DERABLES Performing Organization Address City/[facility]/ZIP Co de Phone Number [address] [phone] * (ABNORMAL) FERRITIN (12/23/2018 11:32 AM CDT) Pathologist [facility] Ferritin 314(H) 13 - 204 ng/mL 12/23/2018 1:10 PM CDT [facility] Blood BLOOD SPECIMEN / Unknown Lab Venipuncture / Unknown 12/23/2018 11:32 AM CDT 12/23/2018 11:57 AM CDT Mara Latif MD LAB - CHEMISTRY OR DERABLES Performing Organization Address [facility] Co de Phone Number [address] [phone] * HEPATITIS B SURFACE ANTIGEN W RFLX CONFIRMATION (12/23/2018 11:32 AM CDT) [facility] Hepatitis B Virus Surface Antigen Non-reacti ve Non-reacti ve 12/23/2018 2:45 PM CDT [facility] Blood BLOOD SPECIMEN / Unknown Lab Venipuncture / Unknown 12/23/2018 11:32 AM CDT 12/23/2018 11:57 AM CDT Mara Latif MD LAB - CHEMISTRY OR DERABLES Performing Organization Address [facility] Co de Phone Number [address] [phone] * C-REACTIVE PROTEIN (12/23/2018 11:32 AM CDT) [facility] C-Reactive Protein <0.5 <=0.5 mg/dL 12/23/2018 3:12 PM CDT [facility] Blood BLOOD SPECIMEN / Unknown Lab Venipuncture / Unknown 12/23/2018 11:32 AM CDT 12/23/2018 11:57 AM CDT Mara Latif MD LAB - CHEMISTRY OR DERABLES [address] [phone] * ERYTHROCYTE SEDIMENTATION RATE (12/23/2018 11:32 AM CDT) Pathologist [facility] Erythrocyte Sedimentation Rate Westergren 4 0 - 20 MM/HR 12/23/2018 12:57 PM CDT [facility] Blood BLOOD SPECIMEN / Unknown Lab Venipuncture / Unknown 12/23/2018 11:32 AM CDT 12/23/2018 11:55 AM CDT Mara Latif MD LAB - HEMATOLOGY O RDERABLES [address] [phone] * (ABNORMAL) COMPREHENSIVE METABOLIC PANEL (12/23/2018 11:32 AM CDT) Pathologist [facility] BUN 12 7 - 26 mg/dL 12/23/2018 12:53 PM [facility] Creatinine 0.5(L) 0.6 - 1.2 mg/dL 12/23/2018 12:53 PM [facility] Sodium 137 136 - 145 mmol/L 12/23/2018 12:53 PM [facility] Potassium 4.1 3.5 - 4.5 mmol/L 12/23/2018 12:53 PM [facility] Chloride 105 98 - 107 mmol/L 12/23/2018 12:53 PM [facility] CO2 26 22 - 29 mmol/L 12/23/2018 12:53 PM [facility] Glucose 82 70 - 115 mg/dL 12/23/2018 12:53 PM [facility] Calcium 8.6 8.4 - 10.2 mg/dL 12/23/2018 12:53 PM [facility] Protein Total 6.7 6.0 - 8.3 g/dL 12/23/2018 12:53 PM [facility] Albumin 4.0 3.4 - 5.0 g/dL 12/23/2018 12:53 PM [facility] Bilirubin Total 0.9 0.2 - 1.2 mg/dL 12/23/2018 12:53 PM [facility] Alkaline Phosphatase 43 40 - 150 Units/L 12/23/2018 12:53 PM [facility] ALT 7 0 - 55 Units/L 12/23/2018 12:53 PM [facility] AST 9 5 - 34 Units/L 12/23/2018 12:53 PM [facility] Anion Gap 10 8 - 18 12/23/2018 12:53 PM [facility] BUN/Creatinine Ratio 24(H) 7 - 23 12/23/2018 12:53 PM [facility] Osmolality Calculated 283 270 - 300 mOsm/kg 12/23/2018 12:53 PM [facility] Albumin/Globulin Ratio 1.5 1.1 - 2.3 12/23/2018 12:53 PM [facility] eGFR >60 >60 mL/min/1.7 3 m2 12/23/2018 12:53 PM [facility] Blood BLOOD SPECIMEN / Unknown Lab Venipuncture / Unknown 12/23/2018 11:32 AM CDT 12/23/2018 11:54 AM T Mara Latif MD LAB - CHEMISTRY OR DERABLES [address] [phone] * (ABNORMAL) CBC WITH DIFFERENTIAL (12/23/2018 11:32 AM T) WBC 7.7 3.5 - 10.5 10? 3 /uL 12/23/2018 12:49 PM [facility] RBC 4.79 3.90 - 5.00 10? 6 /uL 12/23/2018 12:49 PM [facility] Hemoglobin 10.3(L) 12.0 - 15.5 g/dL 12/23/2018 12:49 PM [facility] Hematocrit 33.5(L) 35.0 - 45.0 % 12/23/2018 12:49 PM [facility] MCV 69.9(L) 81.0 - 97.0 fL 12/23/2018 12:49 PM [facility] MCH 21.5(L) 28.0 - 34.0 pg 12/23/2018 12:49 PM [facility] MCHC 30.7(L) 32.0 - 36.0 g/dL 12/23/2018 12:49 PM [facility] Platelet Count 176 150 - 400 10? /uL 12/23/2018 12:49 PM [facility] RDW-SD 43.0 36.0 - 50.0 fL 12/23/2018 12:49 PM [facility] RDW-CV 17.7(H) 11.2 - 14.8 % 12/23/2018 12:49 PM [facility] MPV 12/23/2018 12:49 PM [facility] Comment:Not Calculated nRBC Absolute 0.00 0 ? /uL 12/23/2018 12:49 PM [facility] nRBC Auto 0.0 0 /100 WBC 12/23/2018 12:49 PM [facility] Neutrophils % 60.7 35.0 - 70.0 % 12/23/2018 12:49 PM [facility] Lymphocytes % 27.3 19.7 - 55.1 % 12/23/2018 12:49 PM [facility] Monocytes % 7.1 3.0 - 15.0 % 12/23/2018 12:49 PM [facility] Eosinophils % 3.9 0.0 - 6.0 % 12/23/2018 12:49 PM [facility] Basophil % 0.7 0.0 - 1.5 % 12/23/2018 12:49 PM [facility] Neutrophils Absolute 4.7 1.6 - 7.0 10? /uL 12/23/2018 12:49 PM [facility] Lymphocyte Absolute 2.1 0.8 - 2.9 10? 3 /uL 12/23/2018 12:49 PM T [facility] Monocytes Absolute 0.54 0.14 - 0.66 10? 3 /uL 12/23/2018 12:49 PM T [facility] Eosinophils Absolute 0.30 0.00 - 0.45 10? 3 /uL 12/23/2018 12:49 PM T [facility] Basophils Absolute 0.05 0.00 - 0.06 10? 3 /uL 12/23/2018 12:49 PM T [facility] Immature Granulocytes % 0.3 0.0 - 1.0 % 12/23/2018 12:49 PM [facility] Blood BLOOD SPECIMEN / Unknown Lab Venipuncture / Unknown 12/23/2018 11:32 AM CDT 12/23/2018 11:55 AM CDT Mara Latif MD LAB - HEMATOLOGY O RDERABLES [facility] [address] [place] [address] * QUANTIFERON-TB GOLD PLUS 4-TUBE (12/23/2018 11:32 AM CDT) [facility] QuantiFERON Criteria Comment 12/26/2018 5:07 AM CDT [facility] ([facility]) Comment: The QuantiFERON-TB Gold Plus result is determined by subtracting the Nil value from either TB antigen (Ag) tube. The mitogen tube serves as a control for the test. QuantiFERON TB1 Ag Value 0.14 IU/mL 12/26/2018 5:07 AM CDT [facility] ([facility]) QuantiFERON TB2 Ag Value 0.02 IU/mL 12/26/2018 5:07 AM CDT [facility] ([facility]) QuantiFERON Nil Value 0.02 IU/mL 12/26/2018 5:07 AM CDT [facility] ([facility]) QuantiFERON Mitogen Value >10.00 IU/mL 12/26/2018 5:07 AM CDT [facility] ([facility]) QuantiFERON-TB Gold Plus Negative Negative 12/26/2018 5:07 AM CDT [facility] ([facility]) Comment: The specimen received for QuantiFERON testing was incubated by the ordering institution. ??Specific procedures outlined in our Directory of Services and in the package insert for the QuantiFERON Gold (In Tube) test must be followed to enable for proper stimulation of cells for the production of interferon gamma. Blood BLOOD SPECIMEN / Unknown Lab Venipuncture / Unknown 12/23/2018 11:32 AM CDT 12/23/2018 11:55 AM CDT Narrative [facility] ([facility]) - 12/26/2018 5:07 AM CDT Performed at: ??01 - [facility] [address] [place], [place] ??[id number] [employer] Leak Tester: Frank Calderon PhD, Phone: ??[phone] Mara Latif MD LAB - CHEMISTRY OR DERABLES [facility] ([facility]) [address] [place] [address] documented in this encounter Visit Diagnoses Diagnosis Ulcerative pancolitis without complication (HCC)- Primary documented in this encounter Care Teams Assistant Relationship Specialty Start Date End Date Demar Campbell MD [address] [facility] [address] [place] [address] PCP - General 08/08/17 documented as of this encounter
--- OUTSIDE RECORDS SUMMARY | 2024-03-19 00:53 | XMS_ITS | Encounter Summary ---
Author Organization [employer] Care Team Providers Care Journalists And Other Writers Name Role Phone Adrian Demar Primary Care Provider [phone] Demar Campbell Unavailable Celina Ng MD Unavailable Encounter Details Date Type Department Care Team (Latest Contact Info) Description 01/30/2024 Travel Social History Tobacco Use Types Packs/Day Years Used Date Smoking Tobacco: Every Day Cigarettes Smokeless Tobacco: Never PHQ-2 Answer Date Recorded Total Score - Questions 1-9 1 05/0 05/2020 Sexually Active Control Partners Comments Yes Comments No Sex and Gender Information Value Date Recorded Sex Assigned at Not on file Legal Sex Female 10:[address]NAGER Gender Identity Not on file Sexual Orientation [...] Health Questionnaire-2 Score 0 01/30/2024 12:23 PM Sophia Angelo CMA documented as of this encounter Plan of Treatment Upcoming Encounters Date Type Department Care Team (Late st Contact Info) Description 04/05/2024 11:[address]NAGER Lab [facility] [address] [phone] Lab, [facility] 04/05/2024 11:[address]NAGER Office Visit [facility] [place] [address] [place] [phone] Dickson Tavarez MD [address] [place] [phone] documented as of this encounter Visit Diagnoses Not on filedocumented in this encounter Additional Health Concerns Assessment Noted Time PHQ-9 Depression Total Score: 1 07/18/19 21 8:20 AM CDT documented as of this encounter Care Teams Journalists And Other Writers Relationship Specialty Start Date End Date Demar Campbell [address] [address] PCP - General Family Medicine 12/12/23 Demar Campbell [address] [address] Family Medicine 12/12/23 Celina Ng MD [address] [place] [address] Consulting Physician Oncology 12/12/23 documented as of this encounter
--- OUTSIDE RECORDS SUMMARY | 2024-03-19 00:53 | XMS_ITS | Encounter Summary ---
Author Organization [facility] Address [address] [place] [address] Phone Care Team Providers Care Fitness Trainer Name Role Phone Demar Campbell Primary Care Provider [phone] Demar Campbell Unavailable Celina Ng MD Unavailable Encounter Details Date Type Department Care Team (Late st Contact Info) Description 12/30/2023 Telephone [facility] [address] [place] [address] Celina Ng MD [address] [place] [address] Social History Tobacco Use Types Packs/Day Years Used Date Smoking Tobacco: Every Day Cigarettes Smokeless Tobacco: Never PHQ-2 Answer Date Recorded Total Score - Questions 1-9 1 05/2020 Sexually Active Control Partners Comments Yes Comments No Sex and Gender Information Value Date Recorded Sex Assigned at Not on file Legal Sex Female 10:31 AM TOOL CRIB CLERK Gender Identity Not on file Sexual Orientation Not on file documented as of this encounter Miscellaneous Notes * Telephone Encounter - Mary Gramajo RN - 01/01/2024 4:02 PM CDT Please follow with patient to get into Hepatology * Telephone Encounter - Mary Gramajo RN - 01/01/2024 3:59 PM CDT Images from the original note were not included. Dickson Tavarez MD You; [facility] [employer] Crew Lead (9:22 AM) MW She nees to see hepatology!, call her other contact in chart * Telephone Encounter - Mary Gramajo RN - 12/30/2023 4:[address] Tavarez please advise * Telephone Encounter - Mary Gramajo RN - 12/30/2023 4:22 PM CDT Images from the original note were not included. Celina Ng MD You; Sheree Paz L45 minutes ago (3:36 PM) BF Patient of Dr Tavarez. * Telephone Encounter - Sheree Paz - 12/30/2023 1:26 PM CDT Cannot get through to [facility] - called pt to elderly caregiver her the number as well and her mailbox is full. How would you like me to proceed? Thank you documented in this encounter Plan of Treatment Upcoming Encounters Date Type Department Care Team (Late st Contact Info) Description 04/05/2024 11:30 AM TOOL CRIB CLERK Lab [facility] [address] [address] Lab, [facility] 04/05/2024 11:45 AM TOOL CRIB CLERK Office Visit [facility] [address] [address] Dickson Tavarez MD [address] [place] [phone] documented as of this encounter Visit Diagnoses Not on filedocumented in this encounter Additional Health Concerns Assessment Noted Time PHQ-9 Depression Total Score: 1 07/18/19 21 8:20 AM CDT documented as of this encounter Care Teams Fitness Trainer Relationship Specialty Start Date End Date Demar Campbell [address] [place] [address] PCP - General Family Medicine 12/12/23 Demar Campbell [address] [place] [address] Family Medicine 12/12/23 Celina Ng MD [address] [place] [address] Consulting Physician Oncology 12/12/23 documented as of this encounter
--- OUTSIDE RECORDS SUMMARY | 2024-03-19 00:53 | XMS_ITS | Encounter Summary ---
Author Organization [facility] Address [address] [address] Care Team Providers Care Flanging Roll Operator Name Role Phone Demar Campbell MD Primary Care Provider [phone] Reason for Visit * Auth/Cert Specialty Diagnoses / Procedures Referred By Contac t Referred To Contact Diagnoses Ulcerative pancolitis without complication (HCC) K51.00 Ulcerative pancolitis without complication Procedures NV ED EGD FLEX TRANSORAL DX NV COLONOSCOPY,BIOPSY ESOPHAGOGASTRODUODENOSCOPY (EGD) DIAGNOSTIC COLONOSCOPY DIAGNOSTIC Referral ID Status Reason Start Date Expiration Date Visits Re quested Visits Authorized [id number] 1 1 Encounter Details Date Type Department Care Team (Late st Contact Info) Description 12/29/2018 2:44 PM CDT Anesthesia Event [facility] [address] [place] [address] Anna Wahl MD [facility] new address Jim Gan, MEDICAL ESTHETICIAN-[address] [address] Anesthesia Record Procedure Summary Procedure Name Responsible Anesthesiologist Anesthesia Start Time Anesthesia Stop Time ESOPHAGOGASTRODUODENOSCOPY ( EGD) DIAGNOSTIC (Abdomen) Anna Wahl MD 12/29/18 1444 12/29/18 1549 Events Date Time Event Comment 12/29/2018 1420 1444 An Start 1444 Pt In Room 1444 An Start Data 1453 Anes Timeout 1454 Timeout Anesthesia part icipated in timeout at the time documented in the record by nursing. 1454 PT Reassessment 1458 Induction 1459 Anes Ready 1459 Proc Start 1506 Quick Note Egd COMPLETE, B ED TURNED FOR COLONOSCOPY 1538 Proc Stop 1538 An Emergence 1541 an stop data 1541 Pt out of Room 1541 ANPTO2 1549 An Stop Meds Name Total lidocaine PF 2% 60 mg propofol 200mg/20mL injection 230 mg propofol 500 mg/50 mL injection 352.23 m g NS (0.9% NaCl) 300 mL * Agents Name O2 * Blood No blood administrations on file. Lines, Drains, and Airways Type Details Placement Removal Peripheral IV Date: 12/29/18; Time : 1420; Orientation: Right; Placed By: Rosmery De Anda RN 12/29/18 142 by Atul Bhatti RN 12/29/18 1624 by Samra Jackson RN documented in this encounter Social History [...] as of this encounter Progress Notes * Anna Wahl MD - 12/29/2018 3:57 PM CDT ANESTHESIA POSTOP EVALUATION NOTE Procedure: ESOPHAGOGASTRODUODENOSCOPY (EGD) DIAGNOSTIC (N/A Abdomen) COLONOSCOPY DIAGNOSTIC (N/A ) Tessy Medina is a 33 year old female Patient Vitals for the past 6 hrs: BP Temp Pulse Resp SpO2 12/29/18 1418 95/51 98.1 ??F (36.7 ??C) 69 16 98 % 12/29/18 1551 85/47 97.4 ??F (36.3 ??C) 53 11 -- 12/29/18 1553 -- -- 56 -- -- Anesthesia Type: MAC Pre-op Diagnosis Codes: * Ulcerative pancolitis without complication [K51.00] Mental Status: awake, alert and oriented Neuro Status: No numbness, tingling or visual disturbances Respiratory Function: natural Cardiac Function: stable Postop Pain: acceptable to the patient Postop Hydration: adequate Postop Nausea: none Assessment: no apparent anesthetic complications and patient tolerated procedure well Patient Disposition: Release from Anesthesia Care Non Reportable Improvement Section (otherwise blank): * Anna Wahl MD - 12/29/2018 2:18 PM CDT ANESTHESIA PREOPERATIVE EVALUATION NOTE Procedure: ESOPHAGOGASTRODUODENOSCOPY (EGD) DIAGNOSTIC (N/A Abdomen) COLONOSCOPY DIAGNOSTIC (N/A ) Vitals: No data found. ANESTHESIA PRE-EVALUATION NOTE History of Present Illness: 33 y/o female came in for EGD/colonoscopy. PMH: ulcerative colitis Physical Exam: Orientation X3 Airway/Mallampati Score: II Mouth Opening Distance: 3 fingerwidths Neck ROM: full TM Distance: > 3 FB Teeth: normal Heart: regular rate rhythm Lungs: normal Review of Systems: History of anesthetic complications: No Malignant Hyperthermia: No GERD: No Poor Exercise Tolerance: No AICD/Pacemaker: No ANESTHESIA PLAN ASA Score: 2 NPO Status: No solids since midnight and No liquids within 2 hours Anesthesia Plan: MAC Planned Postop Destination: endo Anesthetic plan was discussed with: patient Anesthetic Plan discussion was: Consented The patient's procedural Anesthetic Plan was discussed with the PLANER OPERATOR. BMI, Height, Weight Tobacco History Estimated body mass index is 24.06 kg/m?? as calculated from the following: Height as of 12/23/18: 1.651 m (5' 5 ). Weight as of 12/23/18: 65.6 kg (144 lb 9.6 oz). Social History Tobacco Use Smoking Status Current Some Day Smoker Smokeless Tobacco Never Used Alcohol History Drug History Social History Substance and Sexual Activity Alcohol Use Yes Comment: rare Social History Substance and Sexual Activity Drug Use Never Outpatient Medications: Inpatient Medications: Outpatient Medications Marked as Taking for the 12/29/18 encounter (Hospital Encounter) Medication Sig Last Dose ??? vitamin D3 Take 1 capsule by mouth every 7 days for 8 doses 12/27/2018 at Unknown time ??? folic acid Take 1 tablet by mouth once daily for 90 days 12/28/2018 at Unknown time ??? polyethylene glycol Drink 1/2 of prep at 5pm the night before test. Finish the prep at 4am the day of test. 12/29/2018 at 1030 No current facility-administered medications for this encounter. Allergies: No Known Allergies Relevant Problems No relevant active problems Problem List: There are no active problems to display for this patient. Medical History: No past medical history on file. Surgical History: No past surgical history on file. Lab Results: Recent Labs Component Name 12/23/18 1132 WBC 7.7 HGB 10.3* HCT 33.5* PLTCOUNT 176 Recent Labs Component Name 12/23/18 1132 NA 137 POTASSIUM 4.1 CO2 26 BUN 12 CREATININE 0.5* Recent Labs Component Name 12/23/18 1132 GLU 82 CALCIUM 8.6 ALT 7 AST 9 documented in this encounter Miscellaneous Notes * Anesthesia Transfer of Care - Jim Gan, MEDICAL ESTHETICIAN-PLANER OPERATOR - 12/29/2018 3:49 PM CDT ANESTHESIA TRANSFER OF CARE NOTE Today's Date: 12/29/2018 Date of : 1985 Patient: Tessy F Hasan Procedure(s) with comments: ESOPHAGOGASTRODUODENOSCOPY (EGD) DIAGNOSTIC - A. duodenal bx normal EGD COLONOSCOPY DIAGNOSTIC - B. right colon bx C. colon polyps-bx x2 D. left colon bx E. rectal bx rectal inflammation/ulcer, hemorrhoids Surgeon(s): Primary: Mara Latif MD Preop Diagnosis: Pre-op Diagnois: * Ulcerative pancolitis without complication [K51.00] Pre-op Meds (From admission, onward) Start Stop Status Route Frequency Ordered 12/29/18 1500 0.9% NaCl infusion -- Dispensed IV CONTINUOUS 12/29/18 1423 12/29/18 1431 0.9% NaCl infusion -- Sent IV CONTINUOUS PRN 12/29/18 1438 12/29/18 1455 lidocaine hcl (PF) (XYLOCAINE MPF) 2 % injection -- Sent INFILTRATION PRN 12/29/18 1455 12/29/18 1458 propofol (DIPRIVAN) infusion -- Sent IV CONTINUOUS PRN 12/29/18 1458 12/29/18 1458 propofol (DIPRIVAN) injection -- Sent IV PRN 12/29/18 1458 Post-op Diagnosis: * Ulcerative pancolitis without complication [K51.00] . No Known Allergies Vitals: Patient Vitals for the past 3 hrs: BP Temp Pulse Resp SpO2 12/29/18 1418 95/51 98.1 ??F (36.7 ??C) 69 16 98 % Lines, Drains, and Airways Type Details Placement Removal Peripheral IV Date: 12/29/18; Time: 1420; Orientation: Right; Location: Hand; Placed by: Rosmery De Anda RN; Cath Gauge: 22 Gauge 12/29/18 142 by Atul Bhatti RN Intraprocedure I/O Totals NS (0.9% NaCl) Volume infused 300 ml Patient Transfer Location: Endo Recovery Transport Airway: spontaneous respirations Complications: None Handoff Given? Yes Checklist or Protocol [...] understanding of report from the receiving PACUteam. DONG Lim documented in this encounter Plan of Treatment Upcoming Encounters Date Type Department Care Team (Late st Contact Info) Description 04/09/2024 8:00 AM INTERNATIONAL RECRUITER Office Visit [facility] - GI [address] [place] [address], [place] [address] Gigi Bueno MD [address] [place] [address] 07/01/2024 1:30 PM CDT Office Visit [facility] - GI [address] [facility], [place] [address] Milka Soni MD [address] [place] [address] 08/02/2024 9:[address] [facility] MRI [address] [place] [address] Linda Dueñas MD [address] [place] [address] 08/02/2024 10:30 AM CDT Office Visit [facility] - General Surgery [address] [place] [phone] Linda Dueñas MD [address] [place] [address] 02/07/2025 10:30 AM INTERNATIONAL RECRUITER Appointment [address] [address] Linda Dueñas MD [address] [place] [address] 02/07/2025 11:00 AM INTERNATIONAL RECRUITER Office Visit [facility] - General Surgery [address] [place] [phone] Linda Dueñas MD [address] [place] [address] documented as of this encounter Visit Diagnoses Not on filedocumented in this encounter Administered Medications Inactive Administered Medications - up to 3 most recent administrations Medication Order MAR Action Action Date Dose Rate Site 0.9% NaCl infusion Intravenous, CONTINUOUS PRN, Starting on Fri12/29/18 at 1431, Until Fri12/29/18 at 1549, Anesthesia Intra-op $ New Bag/Syringe 12/29/2018 2:31 PM CDT lidocaine hcl (PF) (XYLOCAINE MPF) 2 % injection Infiltration, PRN, Starting on Fri12/29/18 at 1455, Until Fri12/29/18 at 1549, Anesthesia Intra-op $ Given 12/29/2018 2:55 PM CDT 60 mg propofol (DIPRIVAN) infusion Intravenous, CONTINUOUS PRN, Starting on Fri12/29/18 at 1458, Until Fri12/29/18 at 1549, Anesthesia Intra-op Rate Change 12/29/2018 3:06 PM CDT 150 mcg/kg/min 53.1 mL/hr $ New Bag/Syringe 12/29/2018 2:58 PM CDT 165 mcg/kg/min 58 .41 mL/hr propofol (DIPRIVAN) injection Intravenous, PRN, Starting on Fri12/29/18 at 1458, Until Fri12/29/18 at 1549, Anesthesia Intra-op $ Given 12/29/2018 3:14 PM CDT 50 mg $ Given 12/29/2018 3:04 PM CDT 50 mg $ Given 12/29/2018 3:00 PM CDT 50 mg documented in this encounter Care Teams Flanging Roll Operator Relationship Specialty Start Date End Date Demar Campbell MD [address] [facility] [address] [place] [phone] PCP - General 08/08/17 documented as of this encounter
--- OUTSIDE RECORDS SUMMARY | 2024-03-19 00:53 | XMS_ITS | Encounter Summary ---
Author Organization [facility] Care Team Providers Care Web Operations Manager Name Role Phone Adrian Demar Primary Care Provider [phone] Demar Campbell Unavailable Celina Ng MD Unavailable Encounter Details Date Type Department Care Team (Latest Contact Info) Description 12/15/2023 Travel Social History Tobacco Use Types Packs/Day Years Used Date Smoking Tobacco: Every Day Cigarettes Smokeless Tobacco: Never PHQ-2 Answer Date Recorded Total Score - Questions 1-9 1 05/0 05/2020 Sexually Active Control Partners Comments Yes Comments No Sex and Gender Information Value Date Recorded Sex Assigned at Not on file Legal Sex Female 10:31 AM MEDICAL OPERATIONS SUPERVISOR Gender Identity Not on file Sexual Orientation Not on file documented as of this encounter Functional Status * Question Answer Date of Assessment Author Little interest or pleasure in doing things Not at all 12/15/2023 10:37 AM Ankur Chirinos CMA Feeling down, depressed, or hopeless Not at all 12/15/2023 10:37 AM CDT Ankur Solomon CMA * Over the past 2 weeks, how often have you been bothered by any of the following problems? Question Answer Date of Assessment Author Patient Health Questionnaire -2 Score 0 12/15/2023 10:37 AM Ankur Chirinos CMA documented as of this encounter Plan of Treatment Upcoming Encounters Date Type Department Care Team (Late st Contact Info) Description 04/05/2024 11:30 AM MEDICAL OPERATIONS SUPERVISOR Lab [facility] [address] [address] Lab, [facility] 04/05/2024 11:45 AM MEDICAL OPERATIONS SUPERVISOR Office Visit [facility] [place] [address] [place] [address] Dickson Tavarez MD [address] [place] [phone] documented as of this encounter Visit Diagnoses Not on filedocumented in this encounter Additional Health Concerns Assessment Noted Time PHQ-9 Depression Total Score: 1 07/18/19 21 8:20 AM CDT documented as of this encounter Care Teams Web Operations Manager Relationship Specialty Start Date End Date Demar Campbell [address] [place] [address] PCP - General Family Medicine 12/12/23 Demar Campbell [address] [place] [address] Family Medicine 12/12/23 Celina Ng MD [address] [place] [phone] Consulting Physician Oncology 12/12/23 documented as of this encounter
--- OUTSIDE RECORDS SUMMARY | 2024-03-19 00:53 | XMS_ITS | Encounter Summary ---
Author Organization [facility] Address [address] [place] [address] Phone Care Team Providers Care Manager Loan Name Role Phone Campbell Demar Primary Care Provider [phone] Demar Campbell Unavailable Celina Ng MD Unavailable Reason for Visit * Reason Onset Date Comments Canopy Call / GI referral 12/17/2023 Encounter Details Date Type Department Care Team (Late st Contact Info) Description 12/17/2023 Telephone [facility] [address] [place] [address] Dickson Tavarez MD [address] [place] [address] Canopy Call / GI referral Social History Tobacco Use Types Packs/Day Years Used Date Smoking Tobacco: Every Day Cigarettes Smokeless Tobacco: Never PHQ-2 Answer Date Recorded Total Score - Questions 1-9 1 05/0 05/2020 Sexually Active Control Partners Comments Yes Comments No Sex and Gender Information Value Date Recorded Sex Assigned at Not on file Legal Sex Female 10:31 AM RETAIL AND PROMOTIONS COORDINATOR Gender Identity Not on file Sexual Orientation Not on file documented as of this encounter Miscellaneous Notes * Telephone Encounter - Mary Gramajo RN - 12/17/2023 2:25 PM CDT pt called wanted to speak to a nurse about the specialist. They have not called her return call to pt at [phone] Returned call to patient, she has not heard from [facility] Gastro[facility]ology, please call her with an update documented in this encounter Plan of Treatment Upcoming Encounters Date Type Department Care Team (Late st Contact Info) Description 04/05/2024 11:30 AM RETAIL AND PROMOTIONS COORDINATOR Lab [facility] [address] [address] Lab, [facility] 04/05/2024 11:45 AM RETAIL AND PROMOTIONS COORDINATOR Office Visit [facility] [address] [address] Dickson Tavarez MD [address] [place] [phone] documented as of this encounter Visit Diagnoses Not on filedocumented in this encounter Additional Health Concerns Assessment Noted Time PHQ-9 Depression Total Score: 1 07/18/19 21 8:20 AM CDT documented as of this encounter Care Teams Manager Loan Relationship Specialty Start Date End Date Demar Campbell [address] [place] [address] PCP - General Family Medicine 12/12/23 Demar Campbell [address] [place] [address] Family Medicine 12/12/23 Celina Ng MD [address] [place] [phone] Consulting Physician Oncology 12/12/23 documented as of this encounter
--- OUTSIDE RECORDS SUMMARY | 2024-03-19 00:53 | XMS_ITS | Encounter Summary ---
Author Organization [employer] Care Team Providers Care Data Mining Analyst Name Role Phone Adrian Demar Primary Care Provider [phone] Demar Campbell Unavailable Celina Ng MD Unavailable Encounter Details Date Type Department Care Team (Latest Contact Info) Description 01/14/2024 Travel Social History Tobacco Use Types Packs/Day Years Used Date Smoking Tobacco: Every Day Cigarettes Smokeless Tobacco: Never PHQ-2 Answer Date Recorded Total Score - Questions 1-9 1 05/0 05/2020 Sexually Active Control Partners Comments Yes Comments No Sex and Gender Information Value Date Recorded Sex Assigned at Not on file Legal Sex Female 10:31 AM RUG HOOKER Gender Identity Not on file Sexual Orientation Not on file documented as of this encounter Plan of Treatment Upcoming Encounters Date Type Department Care Team (Late st Contact Info) Description 04/05/2024 11:30 AM RUG HOOKER Lab [facility] [address] [address] Lab, [facility] 04/05/2024 11:45 AM RUG HOOKER Office Visit [facility] [address] [address] Dickson Tavarez MD [address] [place] [phone] documented as of this encounter Visit Diagnoses Not on filedocumented in this encounter Additional Health Concerns Assessment Noted Time PHQ-9 Depression Total Score: 1 07/18/19 8:20 AM CDT documented as of this encounter Care Teams Data Mining Analyst Relationship Specialty Start Date End Date Demar Campbell [address] [place] [address] PCP - General Family Medicine 12/12/23 Demar Campbell [address] [place] [address] Family Medicine 12/12/23 Celina Ng MD [address] [place] [address] Consulting Physician Oncology 12/12/23 documented as of this encounter
--- OUTSIDE RECORDS SUMMARY | 2024-03-19 00:53 | XMS_ITS | Encounter Summary ---
Author Organization [facility] Address [address] [place] [address] Phone Care Team Providers Care Compensation And Benefits Administrator Name Role Phone Demar Campbell Primary Care Provider [phone] Demar Cambpell Unavailable Celina Ng MD Unavailable Encounter Details Date Type Department Care Team (Late st Contact Info) Description 01/14/2024 Telephone [facility] [address] [place] [address] Dickson Tavarez MD [address] [place] [phone] Social History Tobacco Use Types Packs/Day Years Used Date Smoking Tobacco: Every Day Cigarettes Smokeless Tobacco: Never PHQ-2 Answer Date Recorded Total Score - Questions 1-9 1 05/0 05/2020 Sexually Active Control Partners Comments Yes Comments No Sex and Gender Information Value Date Recorded Sex Assigned at Not on file Legal Sex Female 10:31 AM SPINE SUPERVISOR Gender Identity Not on file Sexual Orientation Not on file documented as of this encounter Miscellaneous Notes * Telephone Encounter - Muna Diallo RN - 01/14/2024 1:00 PM CDT LVM with patient to make aware she needs to contact her PCP for med refill. * Telephone Encounter - Muna Diallo RN - 01/14/2024 12:59 PM CDT Images from the original note were not included. Dickson Tavarez MD Arrasmith, Sandra, CMA; [facility] Nurse Pool33 minutes ago (12:26 PM) MW That is for her PCP not us * Telephone Encounter - Lindsey Solomon CMA - 01/14/2024 11:12 AM CDT Pt came in and said that her hydradenitis is really making her itch. She asked if she could get medication sent in to [facility] pharmacy in [place] Please advise documented in this encounter Plan of Treatment Upcoming Encounters Date Type Department Care Team (Late st Contact Info) Description 04/05/2024 11:30 AM SPINE SUPERVISOR Lab [facility] [address] [phone] [facility] 04/05/2024 11:45 AM SPINE SUPERVISOR Office Visit [facility] [address] [phone] Dickson Tavarez MD [address] [place] [phone] documented as of this encounter Visit Diagnoses Not on filedocumented in this encounter Additional Health Concerns Assessment Noted Time PHQ-9 Depression Total Score: 1 07/18/19 21 8:20 AM CDT documented as of this encounter Care Teams Compensation And Benefits Administrator Relationship Specialty Start Date End Date Demar Campbell [address] [address] PCP - General Family Medicine 12/12/23 Demar Campbell [address] [address] Family Medicine 12/12/23 Celina Ng MD [address] [place] [address] Consulting Physician Oncology 12/12/23 documented as of this encounter
--- OUTSIDE RECORDS SUMMARY | 2024-03-19 00:53 | XMS_ITS | Encounter Summary ---
Author Organization [facility] Address [address] [place] [address] Phone Care Team Providers Care Call Center Manager Name Role Phone Demar Campbell Primary Care Provider [phone] Demar Campbell Unavailable Celina Ng MD Unavailable Reason for Referral * Consult, Test & Initiate Treatment (Less Than 2 Weeks) - Closed Specialty Diagnoses / Procedures Referred By Contac t Referred To Contact Diagnoses Ulcerative pancolitis without complication (HCC) BRCA positive Dickson Tavarez MD [address] [place] [phone] Phone: tel: fax: Referral ID Status Reason Start Date Expiration Date Visits Re quested Visits Authorized [id number] Closed 01/30/2024 1 1 Scheduling Instructions Needs to see HEPATOLOGY. Please zuri , new onset cirrhosis unclear cause, 38 yo R AND WEDGER Reason for Visit * Reason Comments Follow-up Encounter Details Date Type Department Care Team (Latest Contact Info) Description 01/30/2024 12:15 PM GLUER AND WEDGER Office Visit [facility] [address] [phone] Dickson Tavarez MD [address] [place] [phone] Ulcerative pancolitis without complication (HCC) (Primary Dx); BRCA positive Social History Tobacco Use Types [...] on file Legal Sex Female 10:31 AM GLUER AND WEDGER Gender Identity Not on file Sexual Orientation Not on file documented as of this encounter Last Filed Vital Signs Vital Sign Reading Time Taken Comments Blood Pressure 116/64 01/30/2024 12:23 PM GLUER AND WEDGER Pulse 84 01/30/2024 12:23 PM GLUER AND WEDGER Temperature 36.7 ??C (98 ??F) 01/30/2024 12: 23 PM GLUER AND WEDGER Respiratory Rate 18 01/30/2024 12:2 3 PM GLUER AND WEDGER Oxygen Saturation 97% 01/30/2024 12: 23 PM GLUER AND WEDGER Inhaled Oxygen Concentration - - Weight 78.9 kg (173 lb 14.4 oz) 024 12:23 PM GLUER AND WEDGER Height 165.1 cm (5' 5 ) 01/30/2024 12:2 3 PM GLUER AND WEDGER Body Mass Index 28.94 01/30/2024 12:23 PM GLUER AND WEDGER documented in this encounter Functional Status * Question Answer Date of Assessment Author Little interest or pleasure in doing things Not at all 01/30/2024 12:23 PM GLUER AND WEDGER Unruly Trujillo CMA Feeling down, depressed, or hopeless Not at all 01/30/2024 12:23 PM GLUER AND WEDGER Ruba Trujillo CMA * Over the past 2 weeks, how often have you been bothered by any of the following problems? Question Answer Date of Assessment Author Patient Health Questionnaire-2 Score 0 01/30/2024 12:23 PM Sophia Angelo CMA documented as of this encounter Progress Notes * Dickson Tavarez MD - 01/30/2024 12:15 PM CST Images from the original note were not included. Patient: Tessy Medina Age: 38 y.o. : 1985 Encounter Dept: [facility] Encounter Date: 01/30/2024 Care Team: Current Providers PCP: Demar Campbell Care Team Provider: Demar Campbell Care Team Provider: Celina Ng MD Encounter Provider: Dickson Tavarez MD Referring Provider: not found Consulting Physician: Dickson Tavarez MD C: Dr. Demar Campbell (PCP) HISTORY OF PRESENT ILLNESS: Tabby returns. Unfortunately, she still has not been scheduled with Hepatology. We will continue to work on that. She is also trying to get into GI for a history of ulcerative colitis. DIAGNOSIS: 1. Beta thalassemia trait with mild microcytosis and ferritin of 300. 2. BRCA-2 mutation. 3. Folic acid deficiency. 4. Ulcerative colitis. 5. CT abdomen and pelvis 12/15/23 with findings suggestive of hepatic fibrosis and portal hypertension with varices and splenomegaly. PAST TREATMENT: 1. None. CURRENT TREATMENT: 1. [...] 3. Folic acid deficiency. 4. Ulcerative colitis. 5. CT abdomen and pelvis 12/15/23 with findings suggestive of hepatic fibrosis and portal hypertension with varices and splenomegaly. PLAN: 1. She needs to get into Hepatology. She has CT scans concerning for cirrhosis with varices and splenomegaly in a 38-year-old. 2. She has a history of ulcerative colitis, getting into GI. Hopefully it will be done at [facility]. Questionable colitis as well. Her laboratory abnormalities are not significant compared to this. Continue close followup. TIME SPENT: REVIEW OF SYSTEMS: See HPI; [...] Laboratory studies as per Care Everywhere. Dickson Tvaarez MD, FACP/mgo Vitals: Vitals: 01/30/24 1223 BP: 116/64 BP Location: Left Arm BP Position: Sitting BP Cuff Size: Regular Pulse: 84 Resp: 18 Temp: 98 ??F (36.7 ??C) TempSrc: Temporal SpO2: 97% Weight: 173 lb 14.4 oz (78.9 kg) Height: 5' 5 (1.651 m) Body surface area is 1.9 meters squared. Body mass index is 28.94 kg/m??. Pain Score: 0 - No pain [...] file Social History Socioeconomic History Marital status: Spouse name: Seth Number of children: 4 [...] Current Medications: Outpatient Encounter Medications as of 01/30/2024 Medication Sig Dispense Refill doxycycline hyclate (VIBRA-TABS) 100 MG Tablet Take 1 Tablet by mouth every 12 hours. folic acid (FOLVITE) 1 MG Tablet Take 1 Tablet by mouth daily. 90 Tablet 3 [DISCONTINUED] folic acid (FOLVITE) 1 MG Tablet Take 1 Tablet by mouth daily. 90 Tablet 3 omeprazole (PriLOSEC) 20 MG CAPSULE DELAYED RELEASE TAKE 1 CAPSULE BY MOUTH EVERY DAY BEFORE A MEAL No facility-administered encounter medications on file as of 01/30/2024. Labs: Lab on 01/30/2024 Component Date Value Ref Range Status WBC 01/30/2024 8.5 4.0 - 10.0 10*3/uL Final HGB 01/30/2024 10.6 (L) 11.2 - 15.7 g/dL Final HCT 01/30/2024 34.2 34.1 - 44.9 % Final PLT 01/30/2024 232 163 - 369 10*3/uL Final MPV 01/30/2024 See below 9.4 - 12.4 fL Final Instrument unable to provide an accurate result RBC 01/30/2024 4.87 3.93 - 5.22 10*6/uL Final MCV 01/30/2024 70 (L) 79 - 95 fL Final MCH 01/30/2024 21.8 (L) 25.6 - 32.2 pg Final MCHC 01/30/2024 31.0 (L) 32.2 - 36.5 g/dL Final RDW 01/30/2024 18.6 (H) 11.6 - 14.4 % Final Reticulocyte count 01/30/2024 1.86 (H) 0.50 - 1.70 % Final RET-He 01/30/2024 22.10 (L) 28.20 - 36.60 pg Final Comment: RET-He is a direct assessment of incorporation of iron into erythrocyte hemoglobin. It provides an indirect measure of the iron available for new erythropoiesis over past 2-4 days. R AND WEDGER R AND WEDGER documented in this encounter Plan of Treatment Upcoming Encounters Date Type Department Care Team (Late st Contact Info) Description 04/05/2024 11:30 AM GLUER AND WEDGER Lab [facility] [address] [phone] Lab, Cc [facility] 04/05/2024 11:45 AM GLUER AND WEDGER Office Visit [facility] [address] [phone] Dickson Tavarez MD [address] [place] [phone] Scheduled Orders Name Type Priority Associated Diagnoses Orde r Schedule COMPLETE BLOOD COUNT (CBC) WITH DIFF Lab Routine Ulcerative pancolitis without complication (HCC) BRCA positive Expected: 04/05/2024, Expires: 02/17/2026 CMP (COMPREHENSIVE METABOLIC PANEL) Lab Routine Ulcerative pancolitis without complication (HCC) BRCA positive Expected: 04/05/2024, Expires: 02/17/2026 LACTATE DEHYDROGENASE (LD) Lab Routine Ulcerative pancolitis without complication (HCC) BRCA positive Expected: 04/05/2024, Expires: 02/17/2026 Scheduled Referrals Name Type Priority Associated Diagnoses Orde r Schedule EXTERNAL OTHER REFERRAL HST Outpatient Referral Less Than 2 weeks Ulcerative pancolitis without complication (HCC) BRCA positive Expected: 01/30/2024, Expires: 07/29/2025 documented as of this encounter Visit Diagnoses Diagnosis Ulcerative pancolitis without complication (HCC)- Primary BRCA positive Genetic susceptibility to malignant neoplasm of breast documented in this encounter Additional Health Concerns Assessment Noted Time PHQ-9 Depression Total Score: 1 07/18/19 21 8:20 AM CDT documented as of this encounter Care Teams Call Center Manager Relationship Specialty Start Date End Date Demar Campbell [address] [phone] PCP - General Family Medicine 12/12/23 Demar Campbell [address] [address] Family Medicine 12/12/23 Celina Ng MD [address] [place] [address] Consulting Physician Oncology 12/12/23 documented as of this encounter
--- OUTSIDE RECORDS SUMMARY | 2024-03-19 00:53 | XMS_ITS | Clinical Summary ---
Author Organization [facility] Address [address] [place] [address] Phone Care Team Providers Care Die Mechanic Name Role Phone Demar Campbell Primary Care Provider [phone] Demar Campbell Unavailable Celina Ng MD Unavailable Allergies No known active allergies Medications omeprazole (PriLOSEC) 20 MG CAPSULE DELAYED RELEASE TAKE 1 CAPSULE BY MOUTH EVERY DAY BEFORE A MEAL Active doxycycline hyclate (VIBRA-TABS) 100 MG Tablet Take 1 Tablet by mouth every 12 hours. 01/15/2024 Active folic acid (FOLVITE) 1 MG Tablet Take 1 Tablet by mouth daily. 90 Tablet 3 01/30/2024 Active Active Problems Problem Noted Date Diagnosed Date Ulcerative colitis without complications 018 Encounters Date Type Department Care Team Description 01/30/2024 12:15 PM LABOR SPECIALIST Office Visit [facility] [address] [phone] Dickson Tavarez MD Ulcerative pancolitis without complication (HCC) (Primary Dx); BRCA positive 01/30/2024 12:00 PM LABOR SPECIALIST Lab [facility] [address] [phone] Lab, Cc [place] Ulcerative pancolitis without complication (HCC); BRCA positive 01/30/2024 Travel 01/14/2024 Telephone [facility] [address] [phone] Dickson Tavarez MD 01/14/2024 Travel 12/30/2023 Telephone [facility] [address] [phone] Celina Ng MD 12/29/2023 10:15 AM CDT Office Visit [facility] [address] [phone] Dickson Tavarez MD Ulcerative pancolitis without complication (HCC) (Primary Dx) 12/29/2023 Travel from Last 3 Months Family History Medical History Relation Name Comments Anemia Brother 1 Cancer Mother Relation Name Status Comments Brother 1 Alive Brother 2 Alive Father Alive Mother Sister 1 Alive Sister 2 Alive Social History Tobacco Use Types Packs/Day Years Used Date Smoking Tobacco: Every Day Cigarettes Smokeless Tobacco: Never Tobacco Cessation:Ready to Q uit: Yes; Counseling Given: Yes PHQ-2 Answer Date Recorded Total Score - Questions 1-9 1 05/2020 Sexually Active Control Partners Comments Yes Comments No Sex and Gender Information Value Date Recorded Sex Assigned at Not on file Legal Sex Female 10:31 AM LABOR SPECIALIST Gender Identity Not on file Sexual Orientation Not on file Last Filed Vital Signs Vital Sign Reading Time Taken Comments Blood Pressure 116/64 01/30/2024 12:23 PM LABOR SPECIALIST Pulse 84 01/30/2024 12:23 PM LABOR SPECIALIST Temperature 36.7 ??C (98 ??F) 01/30/2024 12: 23 PM LABOR SPECIALIST Respiratory Rate 18 01/30/2024 12:2 3 PM LABOR SPECIALIST Oxygen Saturation 97% 01/30/2024 12: 23 PM LABOR SPECIALIST Inhaled Oxygen Concentration - - Weight 78.9 kg (173 lb 14.4 oz) 024 12:23 PM LABOR SPECIALIST Height 165.1 cm (5' 5 ) 01/30/2024 12:2 3 PM LABOR SPECIALIST Body Mass Index 28.94 01/30/2024 12:23 PM LABOR SPECIALIST Plan of Treatment Upcoming Encounters Date Type Department Care Team (Late st Contact Info) Description 04/05/2024 11:30 AM LABOR SPECIALIST Lab [facility] [address] [phone] Lab, Cc [facility] 04/05/2024 11:45 AM LABOR SPECIALIST Office Visit [facility] [address] [phone] Dickson Tavarez MD [address] [place] [phone] Health Maintenance Due Date Last Done Comments TdaP Immunization 1985 Hepatitis B Immunization (1 of 3 - 19+ 3-dose series) 06/16/2006 Pneumococcal Immunization Co mbined (1 of 2 - PCV) 06/16/2006 Pap Smear 06/16/2008 Cervical Cancer Screening (CCS) 06/16/2017 HPV/Cotest 06/16/2017 Influenza Immunization (#1) 2023 SARS-COV-2 Immunization ( season) 2023 Respiratory Syncytial Virus (RSV) Immunization (Adult) (1 - 1-dose 75+ series) 06/16/2062 Hepatitis C Virus (HCV) Screening Completed 021 Meningococcal Immunization (ACWY) Aged Out No longer eligible based on patient's age to complete this topic Rotavirus Immunization Aged Out No lo nger eligible based on patient's age to complete this topic Procedures Procedure Name Priority Date/Time Associated Diagnosis Comments RETICULOCYTE COUNT (RETIC) Routine 01/30/2024 12:19 PM LABOR SPECIALIST Ulcerative pancolitis without complication (HCC) BRCA positive IRON W/ IRON BINDING CAPACITY [place] Routine 01/30/2024 12:19 PM LABOR SPECIALIST Ulcerative pancolitis without complication (HCC) BRCA positive FERRITIN Routine 01/30/2024 12:19 PM LABOR SPECIALIST Ulcerative pancolitis without complication (HCC) BRCA positive FOLIC ACID (FOLATE) Routine 01/30/2024 1 2:19 PM LABOR SPECIALIST Ulcerative pancolitis without complication (HCC) BRCA positive VITAMIN B12 Routine 01/30/2024 12:19 PM LABOR SPECIALIST Ulcerative pancolitis without complication (HCC) BRCA positive LACTATE DEHYDROGENASE (LD) Routine 01/30/2024 12:19 PM LABOR SPECIALIST Ulcerative pancolitis without complication (HCC) BRCA positive CMP (COMPREHENSIVE METABOLIC PANEL) Routine 01/30/2024 12:19 PM LABOR SPECIALIST Ulcerative pancolitis without complication (HCC) BRCA positive COMPLETE BLOOD COUNT (CBC) WITH DIFF Routine 01/30/2024 12:19 PM LABOR SPECIALIST Ulcerative pancolitis without complication (HCC) BRCA positive from Last 3 Months Results * (ABNORMAL) IRON W/ IRON BINDING CAPACITY [place] (01/30/2024 12:19 PM LABOR SPECIALIST) IRON 134 50 - 212 ug/dL [facility] UIBC 117(L) 155 - 355 ug/dL [facility] TIBC 251(L) 261 - 478 ug/dl [facility] % Saturation 53(H) 20 - 50 % [facility] 01/30/2024 12:1 [address] [facility] - 01/30/2024 1:03 PM LABOR SPECIALIST Release to patient->Immediate Mariel De Dios APRN, DIVIDEND DEPOSIT ENTRY CLERK LAB SEND OUTS F inal Result Performing Organization Address [facility] Co de Phone Number [facility] [address] [place] [address], * VITAMIN B12 (01/30/2024 12:19 PM LABOR SPECIALIST) Vitamin B12 >1,500 180 - 914 pg/mL [facility] Blood 01/30/2024 12:1 9 [address] [facility] - 02/02/2024 2:56 PM LABOR SPECIALIST Release to patient->Immediate Mariel De Dios APRN, DIVIDEND DEPOSIT ENTRY CLERK CHEMISTRY ORDERAB LES Final Result Performing Organization Address [facility] Co de Phone Number CANCER GIN CLERK [facility] [address] [place] [address], * (ABNORMAL) RETICULOCYTE COUNT (RETIC) (01/30/2024 12:19 PM LABOR SPECIALIST) [facility] Reticulocyte count 1.86(H) 0.50 - 1.70 % [facility] GIN CLERK [facility] RET-He 22.10(L) 28.20 - 36.60 pg [facility] GIN CLERK [facility] Comment: RET-He is a direct assessment of incorporation of iron into erythrocyte hemoglobin. It provides an indirect measure of the iron available for new erythropoiesis over past 2-4 days. Blood 01/30/2024 12:1 9 PM LABOR SPECIALIST [facility] - 01/30/2024 12:27 PM LABOR SPECIALIST Release to patient->Immediate Mariel De Dios APRN, [place] HEMATOLOGY ORDERA BLES Final Result Performing Organization Address [facility] Co de Phone Number [facility] [place] [place] [address], [place] [phone] * (ABNORMAL) LACTATE DEHYDROGENASE (LD) (01/30/2024 12:19 PM LABOR SPECIALIST) [facility] LDH 94(L) 140 - 271 U/L [facility] Blood 01/30/2024 12:1 9 PM LABOR SPECIALIST [facility] - 01/30/2024 1:03 PM LABOR SPECIALIST Release to patient->Immediate Mariel De Dios APRN, DIVIDEND DEPOSIT ENTRY CLERK CHEMISTRY ORDERAB LES Final Result Performing Organization Address [facility] Co de Phone Number [facility] [address] [place] [address], [place] [phone] * FOLIC ACID (FOLATE) (01/30/2024 12:19 PM LABOR SPECIALIST) Pathologist [facility] Folate 7.80 >=5.90 ng/mL [facility] Blood 01/30/2024 12:1 [address] [facility] - 02/02/2024 2:56 PM LABOR SPECIALIST Release to patient->Immediate IS THE PATIENT REQUIRED TO BE FASTING FOR 12 HOURS?->No Mariel De Dios IP COUNSEL, DIVIDEND DEPOSIT ENTRY CLERK CHEMISTRY ORDERAB LES Final Result Performing Organization Address City/[facility]/ZIP Co de Phone Number [facility] GIN CL[facility] [place] [address], [place] [phone] * FERRITIN (01/30/2024 12:19 PM LABOR SPECIALIST) Pathologist [facility] Ferritin 286 11 - 307 ng/mL [facility] Blood 01/30/2024 12:1 9 [address] [facility] - 02/02/2024 2:56 PM LABOR SPECIALIST Release to patient->Immediate Mariel De Dios IP COUNSEL, DIVIDEND DEPOSIT ENTRY CLERK CHEMISTRY ORDERAB LES Final Result Performing Organization Address City/[facility] Co de Phone Number [facility] GIN CL[facility] [place] [address], [place] [phone] * (ABNORMAL) CMP (COMPREHENSIVE METABOLIC PANEL) (01/30/2024 12:19 PM LABOR SPECIALIST) Pathologist [facility] Glucose 97 70 - 105 mg/dL [facility] Blood Urea Nitrogen 13 7 - 25 mg/dL [facility] Creatinine 0.6 0.6 - 1.2 mg/dL [facility] Sodium 139 136 - 145 mEq/L [facility] Potassium 3.9 3.5 - 5.1 mEq/L [facility] Chloride 103 98 - 107 mEq/L [facility] Bicarbonate 25 21 - 31 mEq/L [facility] Total Bilirubin 0.8 0.3 - 1.0 mg/dL [facility] Alk. Phosphatase 36 34 - 104 U/L [facility] Aspartate Aminotransferase 12(L) 13 - 39 U/L [facility] Alanine Aminotransferase 10 7 - 52 U/L [facility] Total Protein 6.9 6.4 - 8.9 g/dL [facility] Albumin 4.4 3.5 - 5.7 g/dL [facility] Calcium 9.1 8.6 - 10.3 mg/dL [facility] Anion Gap 14.9 7.0 - 15.0 mEq/L [facility] Globulin 2.5 2.0 - 3.5 g/dL [facility] EGFR 119 >60 ml/min/1. 73m2 [facility] Comment: This eGFR is calculated using 2020 CKD-EPI Creatinine equation without race modifier based on the NKF-ASN task force recommendations Blood 01/30/2024 12:1 9 [address] [facility] - 01/30/2024 1:03 PM LABOR SPECIALIST Release to patient->Immediate IS THE PATIENT REQUIRED TO BE FASTING FOR 8 HOURS?->No us Mariel De Dios APRN, DIVIDEND DEPOSIT ENTRY CLERK CHEMISTRY ORDERAB LES Final Result CANCER GIN CLERK [facility] Cancer Care [facility] [place] [address], [place] [phone] * (ABNORMAL) COMPLETE BLOOD COUNT (CBC) WITH DIFF (01/30/2024 12:19 PM LABOR SPECIALIST) WBC 8.5 4.0 - 10.0 10*3/uL [facility] HGB 10.6(L) 11.2 - 15.7 g/dL [facility] HCT 34.2 34.1 - 44.9 % [facility] PLT 232 163 - 369 10*3/uL [facility] MPV See below 9.4 - 12.4 fL [facility] GIN CLERK [facility] Comment:Instrument unable to provide an accurate result RBC 4.87 3.93 - 5.22 10*6/uL [facility] MCV 70(L) 79 - 95 fL CANCER GIN CLERK [facility] MCH 21.8(L) 25.6 - 32.2 pg CANCER GIN CLERK [facility] MCHC 31.0(L) 32.2 - 36.5 g/dL CANCER GIN CLERK [facility] RDW 18.6(H) 11.6 - 14.4 % CANCER GIN CLERK [facility] Absolute Neutrophil Count 4,828 cells/uL [facility] Absolute Seg Count 4,828 1,440 - 6,600 cells/uL CANCER GIN CLERK [facility] Absolute Lymph Count 3,134 760 - 4,000 cells/uL CANCER GIN CLERK [facility] Absolute Morton Count 339 160 - 1,200 cells/uL CANCER GIN CLERK [facility] Absolute Eos Count 85 0 - 300 cells/uL CANCER GIN CLERK [facility] Absolute Baso Count 85 0 - 100 cells/uL CANCER GIN CLERK [facility] Segmented Neutrophils 57 36 - 66 % CANCER GIN CLERK [facility] Lymphocytes 37 19 - 40 % [facility] Monocytes 4 4 - 12 % [facility] Eosinophils 1 0 - 3 % [facility] Basophils 1 0 - 1 % [facility] WBC Estimate Normal CANCER GIN CLERK [facility] Platelet Estimate Normal CA NCER GIN CLERK [facility] RBC Morphology Abnormal CANCE R GIN CLERK [facility] Microcytosis 1+ CANCER GIN CLERK [facility] Hypochromasia 2+ CANCER GIN CLERK [facility] Anisocytosis 1+ CANCER GIN CLERK [facility] Poikilocytosis 1+ [facility] R GIN CLERK [facility] Target Cells 1+ CANCER GIN CLERK [facility] Elliptocytes 1+ CANCER GIN CLERK [facility] Blood 01/30/2024 12:1 9 PM LABOR SPECIALIST Narrative CANCER GIN CLERK [facility] - 01/30/2024 2:18 PM LABOR SPECIALIST Release to patient->Immediate us Mariel De Dios IP COUNSEL, DIVIDEND DEPOSIT ENTRY CLERK HEMATOLOGY ORDERA BLES Final Result CANCER GIN CLERK [facility] [place] [address], [place] [phone] from Last 3 Months Insurance MEDICAID [employer] Care Teams Die Mechanic Relationship Specialty Start Date End Date Demar Campbell [address] [id number] PCP - General Family Medicine 12/12/23 Demar Campbell [address] [phone] Family Medicine 12/12/23 Celina Ng MD [address] [place] [address] Consulting Physician Oncology 12/12/23
--- OUTSIDE RECORDS SUMMARY | 2024-03-19 00:53 | XMS_ITS | Encounter Summary ---
Author Organization [facility] Address [address] [place] [address] Care Team Providers Care Radio Communications Superintendent Name Role Phone Demar Campbell MD Primary Care Provider [phone] Reason for Visit * Reason Comments Ulcerative Colitis currently having fla re; weak, tired, stomach pain and diarrhea, nausea but no vomiting * Evaluate & Treat (Routine) - Closed Specialty Diagnoses / Procedures Referred By Vj heredia Referred To Contact Gastroenterology Diagnoses UC (ulcerative colitis confined to rectum) (HCC) UC Procedures GA OFFICE/OUTPT VISIT,BRAYAN RUDOLPH IV, Jim, MD [address] [place] [address] [place] [address] Mara Latif MD Need updated address Referral ID Status Reason Start Date Expiration Date Visits Re quested Visits Authorized [id number] Closed 08/07/2018 02/03/2019 1 1 Encounter Details Date Type Department Care Team (Late st Contact Info) Description 12/23/2018 9:00 AM CDT Office Visit [facility] GI [address] [place] [address] Mara Latif MD Need updated address Ulcerative pancolitis without complication (HCC) (Primary Dx) [...] Sign Reading Time Taken Comments Blood Pressure 99/50 12/23/2018 9:23 AM CDT Pulse 94 12/23/2018 9:23 AM CDT Temperature 36.8 ??C (98.3 ??F) 12/23/2018 9:23 AM CD T Respiratory Rate 18 12/23/2018 9:23 AM CDT Oxygen Saturation 99% 12/23/2018 9:23 AM CDT Inhaled Oxygen Concentration - - Weight 65.6 kg (144 lb 9.6 oz) 12/23/2018 9:23 A M CDT Height 165.1 cm (5' 5 ) 12/23/2018 9:23 AM CDT Body Mass Index 24.06 12/23/2018 9:23 AM CDT documented in this encounter Patient Instructions * Patient Instructions* Mara Latif MD - 12/23/2018 10:30 AM CDT Thank you for entrusting your healthcare to the physicians and other specialists at the [facility] Gastroenterology and Hepatology clinic today. Following your visit, you may receive a Press [employer] survey via email or U.S. Mail. We [...] take your calls. We are closed from 12-1 for lunch After hours please call (hospital main number), ask the sealing and canceling machine operator to call the gastroenterology fellow cloud consultant. Emergency; call 911 or go to your closest emergency room. The following information and instructions are from your visit today. IMPORTANT 1. EGD/Colonsocopy 2. Records from [facility] Dr Gomez 3. Records of CT from [facility] 4. Labs today 5. Stool studies at [facility] 6. Refer to rheumatology 7. Refer to Surgical oncology for BRCA 2 positive gene 8. We will plan to see you back in clinic in approx 4 weeks, but please feel free to contact us in the interim with any questions/concerns. Sincerely, Mara Latif MD documented in this encounter Progress Notes * Mara Latif MD - 12/23/2018 9:00 AM CDT Images from the original note were not included. [facility] Mara Latif MD Name: Tessy Medina PCP: Demar Campbell MD Reason For Referral/Chief Complaint: Establish care for Ulcerative colitis HPI: Ms. Daryl Medina is a 33 year old yo female White/ with history of yoder UC, IBD arthropathy, PE during , microcytic anemia, BRCA 2 positive gene who presents today to clinic for evaluation of Ulcerative colitis. At today's visit she reports she has [...] Apriso). She got and was referred to [facility] and was followed by Dr Gomez. She [...] file Gets together: Not on file Attends scientologist service: Not on file Active member of [...] Ulcerative Colitis): None Allergies: Allergy Current meds: No current outpatient medications on file. Physical Exam: BP 99/50 Pulse 94 Temp 98.3 ??F (36.8 ??C) (Oral) Resp 18 Ht 1.651 m (5' 5 ) Wt 65.6 kg (144 lb 9.6oz) SpO2 99% BMI 24.06 kg/m2 Body mass index is 24.06 kg/m??. Gen: Comfortable, A&O x3 HEENT: Anicteric sclera, Neck: Supple Lungs: CTAB. Heart: RRR, Nl S1S2, - m,g,r Abdomen: Not distended, Bowel sounds are normal, Non-tender. Skin: No rashes noted Ext: No edema Musculoskeletal: Ambulates. Neurologic: Grossly nonfocal. Lab Data: No results for input(s): WBC, HGB, PLT, INR in the last 93827 hours. No results for input(s): MCV in the last 96554 hours. No results for input(s): NA, K, CL, CO2, BUN, CREATININE in the last 68141 hours. No results for input(s): AST, ALT, ALKPHOS, TBILI, ALB in the last 07321 hours. No results for input(s): CRP in the last 59698 hours. !Error! . Vitamin D 28 Jul 2018 TSH normal Imaging: CT-scan of the abdomen 2018 IMPRESSION:?1.?Findings of concerning for endometritis with findings [...] 1. Yoder Ulcerative colitis diagnosed in 2014 failed mesalamine products escalated to Infliximab monotherapy [...] did not complete Ab testing at that time. She has not had a colonoscopy since 2015 and will proceed with reevaluation of her disease activity/extent today. I discussed the various available anti-TNF therapies, and data regarding the routes of admi nistration, efficacy and side effects. We reviewed the risks of infections and lymphoma (approximately 4 in 10,000) and skin cancer. She is interested in resuming infliximab, discussed with her risk of antibody formation and sometime need for combination therapy with Imuran/Mtx she wants to avoid Imuran due to risk of pancreatitis. Discussed with her other therapeutic options and she would be interested in Entyvio. 2. BRCA 2 positive gene: Had a lesion on [facility]reat MRI from 12/2017 needs follow up with breast oncology surgery, used to follow at [facility] 3. Microcytic anemia will plan on repeat labs and EGD to evaluate source of anemia. Also had upper GI symptoms in past and was planned for EGD/Colonoscopy after her 4. Joint pain ? Related to IBD arthropathy 5. PE during 6. Complicated with delivery 7. Concerns of portal hypertension on recent CT Records from recent CT at OSH Plan: 1. EGD/Colonsocopy 2. Records from [facility] Dr Gomez 3. Records of CT from [facility] 4. Labs today 5. Stool studies for culture, CDif, calprotcetin at [facility] 6. Refer to rheumatology for evaluation of joint pain 7. Refer to Surgical oncology for BRCA 2 positive gene Preventive measures: A. Bone health: 1. DEXA scan with dates: none 2. Vitamin D 25-OH level with dates: Obtain today B. Cancer screenin. Last colonoscopy: 2014 2. Annual surveillance colonoscopy 3. Annual skin exam by bread dumper if on immunosuppression for non- melanoma skin cancer and screening for melanoma independent of the use of biologic therapy. Discussed today 4. Cervical cancer screening with annual PAP smears if female Discussed today C. Smoking cessation counselling: Non smoker D. Immunization: 1. Yearly flu vaccine with dates: Against flu vaccine, discussed with her today and she will discuss it with her 2. Last pneumonia vaccine with dates: Discussed today 3. Hepatitis B vaccination: Unusre 4. Hepatitis A vaccination: unsure 5. Meningococcal meningitis vaccine: n/a 6. HPV vaccine (ages 9-26): n/a 7. MMR/Varicella: as a child 9. Herpes Zoster Vaccine: n/a 10. Diptheria and Pertussis: Up date with PCP F. 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 Low folic acid will start folic acid 1 mg daily Low vitamin D ordered 24813 once weekly x 8 weeks Agreeable with the plan, had no further questions documented in this encounter Miscellaneous Notes * Communication Body - Marielos Muniz, RN - 12/23/2018 9:32 AM CDT Appetite poor, not wanting to eat due to stomach discomfort and diarrhea. documented in this encounter Plan of Treatment Upcoming Encounters Date Type Department Care Team (Late st Contact Info) Description 04/09/2024 8:00 AM BAG WASHER Office Visit [facility] - GI [address] [place] [phone] Gigi Bueno MD [address] [place] [address] [place] [address] 07/01/2024 1:30 PM CDT Office Visit [facility] - GI [address] [place] [phone] Milka Soni MD [address] [place] [address] 08/02/2024 9:30 AM CDT Appointment [facility] MRI [address] [place] [address] Linda Dueñas MD [address] [place] [address] 08/02/2024 10:30 AM CDT Office Visit [facility] - General Surgery [address] [place] [phone] Linda Dueñas MD [address] [place] [address] 02/07/2025 10:30 AM BAG WASHER Appointment [facility] [address] [place] [address] Linda Dueñas MD [address] [place] [address] 02/07/2025 11:00 AM BAG WASHER Office Visit [facility] - General Surgery [address] [place] [phone] Linda Dueñas MD [address] [place], [place] [id number] Scheduled Orders Name Type Priority Associated Diagnoses Orde r Schedule C DIFFICILE TOXIN/GDH W REFLX TO PCR Microbiology Routine Ulcerative pancolitis without complication (HCC) Ordered: 12/23/2018 CALPROTECTIN FECAL Lab Routine Ulcerative pancolitis without complication (HCC) Ordered: 12/23/2018 CULTURE STOOL PANEL Microbiology Routine Ulcerative pancolitis without complication (HCC) Ordered: 12/23/2018 documented as of this encounter Results * (ABNORMAL) VITAMIN D 25-HYDROXY (12/23/2018 11:32 AM CDT) Vitamin D, 25 Hydroxy 12.5(L) See comment: ng/mL 12/23/2018 1:34 PM CDT [facility] Comment: The recommendations for 25-Hydroxy [...] - CHEMISTRY OR DERABLES Performing Organization Address [facility] de Phone Number [address] [phone] * (ABNORMAL) HEPATITIS B SURFACE ANTIBODY (12/23/2018 11:32 AM CDT) Hepatitis B Virus Surface Antibody Reactive( A) Non-react clif 12/23/2018 1:59 PM CDT [facility] Comment: > 12 mIU/mL Hepatitis B surface Antibody (HBsAb). Reactive for HBsAb - individual is considered immune to Hepatitis B Virus infection. Hepatitis B Surface Antibody Quantitative 101.0(H) <8.0 mIU/mL 12/23/2018 1:59 PM CDT [facility] Comment: Hepatitis B Surface Antibody Numeric Result Interpretation: ? Nonreactive: ?<8.0 mIU/mL ? Indeterminate: ??8.0 - 12.0 mIU/mL ? Reactive: ?>12.0 mIU/mL ? Blood BLOOD SPECIMEN / Unknown Lab Venipuncture / Unknown 12/23/2018 11:32 AM CDT 12/23/2018 11:57 AM CDT Mara Latif MD LAB - CHEMISTRY OR DERABLES Performing Organization Address [facility] de Phone Number [address] [phone] * HEPATITIS B CORE ANTIBODY (12/23/2018 11:32 AM CDT) HBc Antibody Total Non-reacti ve Non-reacti ve 12/23/2018 2:45 PM CDT [facility] Blood BLOOD SPECIMEN / Unknown Lab Venipuncture / Unknown 12/23/2018 11:32 AM CDT 12/23/2018 11:56 AM CDT Mara Latif MD LAB - CHEMISTRY OR DERABLES Performing Organization Address [facility]/ZIP Co de Phone Number [facility]ORY [facility] [address] [phone] * (ABNORMAL) HEPATITIS A ANTIBODY (12/23/2018 11:32 AM CDT) Pathologist [facility] Hepatitis A Virus Antibody Total Positive(A ) Negative 12/24/2018 5:07 AM CDT [facility] ([facility]) Blood BLOOD SPECIMEN / Unknown Lab Venipuncture / Unknown 12/23/2018 11:32 AM CDT 12/23/2018 11:57 AM CDT Narrative [facility] ([facility]) - 12/24/2018 5:07 AM CDT Performed at: ??01 - [facility] [address] [place], [place] ??[id number] Party Plan Sales Host/Hostess: Frank Calderon PhD, Phone: ??[phone] Mara Latif MD LAB - CHEMISTRY OR DERABLES Performing Organization Address City/[facility] Co de Phone Number [facility] ([facility]) [address] [place] [address] * VITAMIN B12 (12/23/2018 11:32 AM CDT) Pathologist [facility] Vitamin B12 430 213 - 816 pg/mL 12/23/2018 3:55 PM CDT [facility] Blood BLOOD SPECIMEN / Unknown Lab Venipuncture / Unknown 12/23/2018 11:32 AM CDT 12/23/2018 11:54 AM CDT Mara Latfi MD LAB - CHEMISTRY OR DERABLES Performing Organization Address City/[facility]/ZIP Co de Phone Number [facility] [address] [place] [address] * (ABNORMAL) FOLATE (12/23/2018 11:32 AM CDT) Folate 6.7(L) 7.0 - 31.4 ng/mL 12/23/2018 3:55 PM CDT [facility] Blood BLOOD SPECIMEN / Unknown Lab Venipuncture / Unknown 12/23/2018 11:32 AM CDT 12/23/2018 11:54 AM CDT Mara Latif MD LAB - CHEMISTRY OR DERABLES Performing Organization Address [facility] Co de Phone Number [address] [phone] * (ABNORMAL) TRANSFERRIN (12/23/2018 11:32 AM CDT) Transferrin 168(L) 174 - 382 mg/dL 12/23/2018 3:09 PM CDT [facility] Transferrin Saturation % 57(H) 16 - 50 % 12/23/2018 3:09 PM CDT [facility] Blood BLOOD SPECIMEN / Unknown Lab Venipuncture / Unknown 12/23/2018 11:32 AM CDT 12/23/2018 11:57 AM CDT Mara Latif MD LAB - CHEMISTRY OR DERABLES Performing Organization Address City/[facility]/ZIP Co de Phone Number [address] [phone] * IRON BLOOD (12/23/2018 11:32 AM CDT) Iron 120 40 - 150 mcg/dL 12/23/2018 12:54 PM CDT [facility] Blood BLOOD SPECIMEN / Unknown Lab Venipuncture / Unknown 12/23/2018 11:32 AM CDT 12/23/2018 11:57 AM CDT Mara Latif MD LAB - CHEMISTRY OR DERABLES Performing Organization Address City/[facility] Co de Phone Number [address] [phone] * (ABNORMAL) FERRITIN (12/23/2018 11:32 AM CDT) Ferritin 314(H) 13 - 204 ng/mL 12/23/2018 1:10 PM CDT [facility] Blood BLOOD SPECIMEN / Unknown Lab Venipuncture / Unknown 12/23/2018 11:32 AM CDT 12/23/2018 11:57 AM CDT Mara Latif MD LAB - CHEMISTRY OR DERABLES Performing Organization Address [facility] Co de Phone Number [address] [phone] * HEPATITIS B SURFACE ANTIGEN W RFLX CONFIRMATION (12/23/2018 11:32 AM CDT) Hepatitis B Virus Surface Antigen Non-reacti ve Non-reacti ve 12/23/2018 2:45 PM CDT [facility] Blood BLOOD SPECIMEN / Unknown Lab Venipuncture / Unknown 12/23/2018 11:32 AM CDT 12/23/2018 11:57 AM CDT Mara Latif MD LAB - CHEMISTRY OR DERABLES Performing Organization Address [facility] Co de Phone Number [address] [phone] * C-REACTIVE PROTEIN (12/23/2018 11:32 AM CDT) C-Reactive Protein <0.5 <=0.5 mg/dL 12/23/2018 3:12 PM CDT [facility] Blood BLOOD SPECIMEN / Unknown Lab Venipuncture / Unknown 12/23/2018 11:32 AM CDT 12/23/2018 11:57 AM CDT Mara Latif MD LAB - CHEMISTRY OR DERABLES Performing Organization Address City/[facility]/ZIP Co de Phone Number [facility] [address] [phone] * ERYTHROCYTE SEDIMENTATION RATE (12/23/2018 11:32 AM CDT) Pathologist [facility] Erythrocyte Sedimentation Rate Westergren 4 0 - 20 MM/HR 12/23/2018 12:57 PM [facility] Blood BLOOD SPECIMEN / Unknown Lab Venipuncture / Unknown 12/23/2018 11:32 AM CDT 12/23/2018 11:55 AM CDT Mara Latif MD LAB - HEMATOLOGY O RDERABLES [address] [phone] * (ABNORMAL) COMPREHENSIVE METABOLIC PANEL (12/23/2018 11:32 AM CDT) [facility] BUN 12 7 - 26 mg/dL 12/23/2018 12:53 PM [facility] Creatinine 0.5(L) 0.6 - 1.2 mg/dL 12/23/2018 12:53 PM [facility] Sodium 137 136 - 145 mmol/L 12/23/2018 12:53 PM [facility] Potassium 4.1 3.5 - 4.5 mmol/L 12/23/2018 12:53 PM [facility] Chloride 105 98 - 107 mmol/L 12/23/2018 12:53 PM [facility] CO2 26 22 - 29 mmol/L 12/23/2018 12:53 PM [facility] Glucose 82 70 - 115 mg/dL 12/23/2018 12:53 PM [facility] Calcium 8.6 8.4 - 10.2 mg/dL 12/23/2018 12:53 PM [facility] Protein Total 6.7 6.0 - 8.3 g/dL 12/23/2018 12:53 PM [facility] Albumin 4.0 3.4 - 5.0 g/dL 12/23/2018 12:53 PM [facility] Bilirubin Total 0.9 0.2 - 1.2 mg/dL 12/23/2018 12:53 PM [facility] Alkaline Phosphatase 43 40 - 150 Units/L 12/23/2018 12:53 PM [facility] ALT 7 0 - 55 Units/L 12/23/2018 12:53 PM [facility] AST 9 5 - 34 Units/L 12/23/2018 12:53 PM [facility] Anion Gap 10 8 - 18 12/23/2018 12:53 PM [facility] BUN/Creatinine Ratio 24(H) 7 - 23 12/23/2018 12:53 PM [facility] Osmolality Calculated 283 270 - 300 mOsm/kg 12/23/2018 12:53 PM [facility] Albumin/Globulin Ratio 1.5 1.1 - 2.3 12/23/2018 12:53 PM [facility] eGFR >60 >60 mL/min/1.7 3 m2 12/23/2018 12:53 PM [facility] Blood BLOOD SPECIMEN / Unknown Lab Venipuncture / Unknown 12/23/2018 11:32 AM CDT 12/23/2018 11:54 AM CDT Mara Latif MD LAB - CHEMISTRY OR DERABLES Performing Organization Address City/State/[facility] Co de Phone Number [address] [phone] * (ABNORMAL) CBC WITH DIFFERENTIAL (12/23/2018 11:32 AM CDT) WBC 7.7 3.5 - 10.5 10? 3 /uL 12/23/2018 12:49 PM [facility] RBC 4.79 3.90 - 5.00 10? 6 /uL 12/23/2018 12:49 PM [facility] Hemoglobin 10.3(L) 12.0 - 15.5 g/dL 12/23/2018 12:49 PM [facility] Hematocrit 33.5(L) 35.0 - 45.0 % 12/23/2018 12:49 PM [facility] MCV 69.9(L) 81.0 - 97.0 fL 12/23/2018 12:49 PM [facility] MCH 21.5(L) 28.0 - 34.0 pg 12/23/2018 12:49 PM [facility] MCHC 30.7(L) 32.0 - 36.0 g/dL 12/23/2018 12:49 PM [facility] Platelet Count 176 150 - 400 10? 3 /uL 12/23/2018 12:49 PM [facility] RDW-SD 43.0 36.0 - 50.0 fL 12/23/2018 12:49 PM [facility] RDW-CV 17.7(H) 11.2 - 14.8 % 12/23/2018 12:49 PM [facility] MPV 12/23/2018 12:49 PM [facility] Comment:Not Calculated nRBC Absolute 0.00 0 10? 3 /uL 12/23/2018 12:49 PM [facility] nRBC Auto 0.0 0 /100 WBC 12/23/2018 12:49 PM [facility] Neutrophils % 60.7 35.0 - 70.0 % 12/23/2018 12:49 PM [facility] Lymphocytes % 27.3 19.7 - 55.1 % 12/23/2018 12:49 PM [facility] Monocytes % 7.1 3.0 - 15.0 % 12/23/2018 12:49 PM [facility] Eosinophils % 3.9 0.0 - 6.0 % 12/23/2018 12:49 PM [facility] Basophil % 0.7 0.0 - 1.5 % 12/23/2018 12:49 PM [facility] Neutrophils Absolute 4.7 1.6 - 7.0 10? 3 /uL 12/23/2018 12:49 PM [facility] Lymphocyte Absolute 2.1 0.8 - 2.9 10? 3 /uL 12/23/2018 12:49 PM [facility] Monocytes Absolute 0.54 0.14 - 0.66 10? 3 /uL 12/23/2018 12:49 PM [facility] Eosinophils Absolute 0.30 0.00 - 0.45 10? 3 /uL 12/23/2018 12:49 PM [facility] Basophils Absolute 0.05 0.00 - 0.06 10? 3 /uL 12/23/2018 12:49 PM CDT [facility] Immature Granulocytes % 0.3 0.0 - 1.0 % 12/23/2018 12:49 PM CDT [facility] Blood BLOOD SPECIMEN / Unknown Lab Venipuncture / Unknown 12/23/2018 11:32 AM CDT 12/23/2018 11:55 AM CDT Mara Latif MD LAB - HEMATOLOGY O RDERABLES [facility] [address] [phone] documented in this encounter Visit Diagnoses Diagnosis Ulcerative pancolitis without complication (HCC)- Primary documented in this encounter Care Teams Radio Communications Superintendent Relationship Specialty Start Date End Date Demar Campbell MD [address] [facility] [address] [place] [address] PCP - General 08/08/17 documented as of this encounter
--- OUTSIDE RECORDS SUMMARY | 2024-03-19 00:54 | XMS_ITS | Encounter Summary ---
Author Organization [facility] Care Team Providers Care Bus Aide Name Role Phone Demar Campbell Primary Care Provider [phone] Encounter Details Date Type Department Care Team (Latest Contact Info) Description 01/24/2023 Travel Social History Tobacco Use Types Packs/Day Years Used Date Smoking Tobacco: Every Day Cigarettes Smokeless Tobacco: Never PHQ-2 Answer Date Recorded Total Score - Questions 1-9 1 05/2020 Sexually Active Control Partners Comments Yes Comments No Sex and Gender Information Value Date Recorded Sex Assigned at Not on file Legal Sex Female 10:31 AM RECYCLE COORDINATOR Gender Identity Not on file Sexual Orientation Not on file COVID-19 Exposure Response Date Recorded In the last 10 days, have yo u been in contact with someone who was confirmed or suspected to have Coronavirus/COVID-19? No / Unsure 01/24/2023 9:27 AM RECYCLE COORDINATOR documented as of this encounter Functional Status * Question Answer Date of Assessment Author Little interest or pleasure in doing things Not at all 01/24/2023 9:44 AM Shilpa Peguero LPN Feeling down, depressed, or hopeless Not at all 01/24/2023 9:44 AM Shilpa Peguero LPN * Over the past 2 weeks, how often have you been bothered by any of the following problems? Question Answer Date of Assessment Author Patient Health Questionnaire -2 Score 0 01/24/2023 9:44 AM Shilpa Peguero LPN documented as of this encounter Plan of Treatment Upcoming Encounters Date Type Department Care Team (Late st Contact Info) Description 04/05/2024 11:30 AM RECYCLE COORDINATOR Lab [facility] [address] [phone] Lab, Cc [facility] 04/05/2024 11:45 AM RECYCLE COORDINATOR Office Visit [facility] [address] [phone] Dickson Tavarez MD [address] [place] [phone] documented as of this encounter Visit Diagnoses Not on filedocumented in this encounter Additional Health Concerns Assessment Noted Time PHQ-9 Depression Total Score: 1 07/18/19 21 8:20 AM CDT documented as of this encounter Care Teams Bus Aide Relationship Specialty Start Date End Date Demar Campbell [address] [place] [address] PCP - General Family Medicine 07/20/20 12/11/23 documented as of this encounter
--- OUTSIDE RECORDS SUMMARY | 2024-03-19 00:54 | XMS_ITS | Encounter Summary ---
Author Organization [facility] Address [address] [place] [address] Phone Care Team Providers Care Oracle Fusion Consultant Name Role Phone Juliann Frias MD Primary Care Provider [phone] Encounter Details Date Type Department Care Team (Late Contact Info) Description 07/17/2020 9:00 AM CDT Lab [facility] [address] [phone] Lab, Cc [facility] Ulcerative pancolitis without complication (HCC) Social History Tobacco Use Types Packs/Day Years Used Date Smoking Tobacco: Every Day Cigarettes Smokeless Tobacco: Never PHQ-2 Answer Date Recorded Total Score - Questions 1-9 1 05/2020 Sexually Active Control Partners Comments Yes Comments No Sex and Gender Information Value Date Recorded Sex Assigned at Not on file Legal Sex Female 10:31 AM CLIMATOLOGIST Gender Identity Not on file Sexual Orientation Not on file COVID-19 Exposure Response Date Recorded In the last month, have you been in contact with someone who was confirmed or suspected to have Coronavirus / COVID-19? No / Unsure 07/17/2020 7:53 AM CDT documented as of this encounter Plan of Treatment Upcoming Encounters Date Type Department Care Team (Late Contact Info) Description 04/05/2024 11:30 AM CLIMATOLOGIST Lab [facility] [address] [phone] [facility] 04/05/2024 11:45 AM CLIMATOLOGIST Office Visit [facility] [address] [address] [place] [phone] Dickson Tavarez MD [address] [place] [phone] documented as of this encounter Procedures Procedure Name Priority Date/Time Associated Diagnosis Comments IRON W/ IRON BINDING CAPACITY [place] Routine 07/17/2020 8:55 AM CDT Ulcerative pancolitis without complication (HCC) VITAMIN B12 Routine 07/17/2020 8:55 AM CDT Ulcerative pancolitis without complication (HCC) THYROID STIMULATING HORMONE (TSH) Routine 07/17/2020 8:55 AM CDT Ulcerative pancolitis without complication (HCC) RETICULOCYTE COUNT (RETIC) Routine 07/17/2020 8:55 AM CDT Ulcerative pancolitis without complication (HCC) LACTATE DEHYDROGENASE (LD) Routine 07/17/2020 8:55 AM CDT Ulcerative pancolitis without complication (HCC) HAPTOGLOBIN Routine 07/17/2020 8:55 AM CDT Ulcerative pancolitis without complication (HCC) FOLIC ACID (FOLATE) Routine 07/17/2020 8 :55 AM CDT Ulcerative pancolitis without complication (HCC) FERRITIN Routine 07/17/2020 8:55 AM CDT Ulcerative pancolitis without complication (HCC) CMP (COMPREHENSIVE METABOLIC PANEL) Routine 07/17/2020 8:55 AM CDT Ulcerative pancolitis without complication (HCC) COMPLETE BLOOD COUNT (CBC) WITH DIFF Routine 07/17/2020 8:55 AM CDT Ulcerative pancolitis without complication (HCC) documented in this encounter Results * (ABNORMAL) COMPLETE BLOOD COUNT (CBC) WITH DIFF (07/17/2020 8:55 AM CDT) WBC 9.6 4.0 - 10.0 10*3/uL [facility] HGB 10.3(L) 11.2 - 15.7 g/dL [facility] HCT 32.8(L) 34.1 - 44.9 % [facility] PLT 195 163 - 369 10*3/uL [facility] MPV See Below 9.4 - 12.4 fL [facility] RBC 4.70 3.93 - 5.22 10*6/uL [facility] MCV 70(L) 79 - 95 fL [facility] MCH 21.9(L) 25.6 - 32.2 pg [facility] MCHC 31.4(L) 32.2 - 36.5 g/dL [facility] RDW 18.5(H) 11.6 - 14.4 % [facility] Absolute Neutrophil Count 5,652 cells/uL [facility] Absolute Seg Count 5,652 1,440 - 6,600 cells/uL [facility] Absolute Webster Count 862 160 - 1,200 cells/uL [facility] Absolute Eos Count 383(H) 0 - 300 cells/uL [facility] Absolute Baso Count 96 0 - 100 cells/uL [facility] Segmented Neutrophils 59 36 - 66 % [facility] Lymphocytes 27 19 - 40 % [facility] Monocytes 9 4 - 12 % [facility] Eosinophils 4(H) 0 - 3 % [facility] Basophils 1 0 - 1 % [facility] WBC Estimate Normal [facility] Platelet Estimate Normal CA [facility] RBC Morphology Abnormal [facility] Microcytosis 1+ [facility] Hypochromasia 1+ [facility] Anisocytosis 1+ [facility] Poikilocytosis 1+ [facility] Teardrop Cells 1+ [facility] Blood 07/17/2020 8:55 AM CDT Narrative [facility] - 07/17/2020 11:35 AM CDT Instrument unable to provide an accurate result Release to patient->Immediate Dickson Tavarez MD HEMATOLOGY ORDERABLES Final Result [facility] [address] [phone], * (ABNORMAL) CMP (COMPREHENSIVE METABOLIC PANEL) (07/17/2020 8:55 AM CDT) Glucose 106(H) 70 - 105 mg/dL [facility] Blood Urea Nitrogen 10 7 - 25 mg/dL [facility] Creatinine 0.5(L) 0.6 - 1.2 mg/dL [facility] Sodium 141 136 - 145 mEq/L [facility] Potassium 4.1 3.5 - 5.1 mEq/L [facility] Chloride 108(H) 98 - 107 mEq/L [facility] Bicarbonate 26 21 - 31 mEq/L [facility] Total Bilirubin 0.5 0.3 - 1.0 mg/dL [facility] Alk. Phosphatase 39 34 - 104 U/L [facility] Aspartate Aminotransferase 13 13 - 39 U/L [facility] Alanine Aminotransferase 15 7 - 52 U/L [facility] Total Protein 6.4 6.4 - 8.9 g/dL [facility] Albumin 4.2 3.5 - 5.7 g/dL [facility] Calcium 8.5(L) 8.6 - 10.3 mg/dL [facility] Anion Gap 11.1 7.0 - 15.0 mEq/L [facility] Globulin 2.2 2.0 - 3.5 g/dL [facility] EGFR (Non ) >60 >60 ml/min [facility] EGFR () >60 >60 ml/min [facility] Blood 07/17/2020 8:55 AM CDT Narrative [facility] - 07/17/2020 9:40 AM CDT IS THE PATIENT REQUIRED TO BE FASTING FOR 8 HOURS?->No Release to patient->Immediate us Dickson Tavarez MD CHEMISTRY ORDERABLES Final Result Performing Organization Address City/[facility]/ZIP Co de Phone Number [facility] [place] [address] [place] [address], [place] [phone] * VITAMIN B12 (07/17/2020 8:55 AM CDT) Vitamin B12 262 180 - 914 pg/mL [facility] Blood 07/17/2020 8:55 AM CDT Narrative [facility] - 07/17/2020 2:36 PM CDT Release to patient->Immediate us Dickson Tavarez MD CHEMISTRY ORDERABLES Final Result Performing Organization Address City/[facility]/ZIP Co de Phone Number [facility] [address] [place] [address], [place] [phone] * FOLIC ACID (FOLATE) (07/17/2020 8:55 AM CDT) Folate 11.77 >=5.90 ng/mL [facility] Blood 07/17/2020 8:55 AM CDT [facility] 07/17/2020 2:36 PM CDT IS THE PATIENT REQUIRED TO BE FASTING FOR 12 HOURS?->No Release to patient->Immediate us Dickson Tavarez MD CHEMISTRY ORDERABLES Final Result Performing Organization Address City/[facility]/ZIP Co de Phone Number [facility] [address] [place] [address], [place] [phone] * (ABNORMAL) FERRITIN (07/17/2020 8:55 AM CDT) Ferritin 340(H) 11 - 307 ng/mL [facility] Blood 07/17/2020 8:55 AM CDT [facility] - 07/17/2020 2:36 PM CDT Release to patient->Immediate us Dickson Tavarez MD CHEMISTRY ORDERABLES Final Result [facility] [place] [address], [place] [phone] * (ABNORMAL) IRON W/ IRON BINDING CAPACITY [place] (07/17/2020 8:55 AM CDT) IRON 87 50 - 212 ug/dL [facility] UIBC 149(L) 155 - 355 ug/dL [facility] TIBC 236(L) 261 - 478 ug/dl [facility] % Saturation 37 20 - 50 % [facility] 07/17/2020 8:55 AM CDT [facility] - 07/17/2020 9:40 AM CDT Release to patient->Immediate us Dickson Tavarez MD LAB SEND OUTS Final Resul t Performing Organization Address [facility] Co de Phone Number [facility] [address] [id number], [place] [phone] * (ABNORMAL) RETICULOCYTE COUNT (RETIC) (07/17/2020 8:55 AM CDT) Reticulocyte count 2.36(H) 0.50 - 1.70 % [facility] RET-He 23.00(L) 28.20 - 36.60 pg [facility] Comment: RET-He is a direct assessment of incorporation of iron into erythrocyte hemoglobin. It provides an indirect measure of the iron available for new erythropoiesis over past 2-4 days. Blood 07/17/2020 8:55 AM CDT [facility] - 07/17/2020 9:10 AM CDT Release to patient->Immediate us Dickson Tavarez MD HEMATOLOGY ORDERABLES Final Result Performing Organization Address City/[facility]/ZIP Co de Phone Number [facility] [address] [place] [address], [place] [phone] * HAPTOGLOBIN (07/17/2020 8:55 AM CDT) HAPTO 99 30 - 200 mg/dL [facility] Blood 07/17/2020 8:55 AM CDT Narrative [facility] - 07/18/2020 2:10 PM CDT Release to patient->Immediate us Dickson Tavarez MD CHEMISTRY ORDERABLES Final Result Performing Organization Address City/[facility]/ZIP Co de Phone Number [facility] [address] [place] [address], [place] [phone] * (ABNORMAL) LACTATE DEHYDROGENASE (LD) (07/17/2020 8:55 AM CDT) LDH 126(L) 140 - 271 U/L [facility] Blood 07/17/2020 8:55 AM CDT Narrative [facility] - 07/17/2020 9:57 AM CDT Release to patient->Immediate us Dickosn Tavarez MD CHEMISTRY ORDERABLES Final Result Performing Organization Address [facility] Co de Phone Number [facility] [address] [place] [address], [place] [phone] * THYROID STIMULATING HORMONE (TSH) (07/17/2020 8:55 AM CDT) TSH 2.80 0.45 - 5.33 uIU/mL [facility] Blood 07/17/2020 8:55 AM CDT Janie [facility] - 07/17/2020 2:36 PM CDT Release to patient->Immediate us Dickson Tavarez MD CHEMISTRY ORDERABLES Final Result [facility] PROGRAM MANA[facility] [address] [address], documented in this encounter Visit Diagnoses Diagnosis Ulcerative pancolitis without complication (HCC) documented in this encounter Additional Health Concerns Assessment Noted Time PHQ-9 Depression Total Score: 1 07/18/19 21 8:20 AM CDT documented as of this encounter Care Teams Oracle Fusion Consultant Relationship Specialty Start Date End Date Juliann Frias MD [address] [place] [address] PCP - General Family Medicine 11/08/16 07/19/20 documented as of this encounter
--- OUTSIDE RECORDS SUMMARY | 2024-03-19 00:54 | XMS_ITS | Encounter Summary ---
Author Organization [facility] Address [address] [place] [address] Phone Care Team Providers Care Produce Team Member Name Role Phone Demar Campbell Primary Care Provider [phone] Reason for Referral * Radiology Services (Routine) - Closed Specialty Diagnoses / Procedures Referred By Vj heredia Referred To Contact Radiology Diagnoses Ulcerative pancolitis without complication (HCC) BRCA positive Unintentional weight loss Procedures CT ABDOMEN PELVIS W/ CONTRAST CT CHEST ABDOMEN AND PELVIS W CONTRAST Dickson Tavarez MD [address] [place] [phone] Phone: tel: fax: Referral ID Status Reason Start Date Expiration Date Visits Re quested Visits Authorized [id number] Closed 12/08/2023 1 1 Reason for Visit * Reason Comments Follow-up Encounter Details Date Type Department Care Team (Latest Contact Info) Description 12/08/2023 9:45 AM CDT Office Visit [facility] [address] [phone] Dickson Tavarez MD [address] [place] [phone] Ulcerative pancolitis without complication (HCC) (Primary Dx); BRCA positive; Unintentional weight loss Social History Tobacco Use Types Packs/Day Years Used Date Smoking Tobacco: Every Day Cigarettes Smokeless Tobacco: Never Tobacco Cessation:Ready to Q uit: Yes; Counseling Given: Yes PHQ-2 Answer Date Recorded Total Score - Questions 1-9 1 05/2020 Sexually Active Control Partners Comments Yes Comments No Sex and Gender Information Value Date Recorded Sex Assigned at Not on file Legal Sex Female 10:31 AM LEADITE HEATER Gender Identity Not on file Sexual Orientation Not on file documented as of this encounter Last Filed Vital Signs Vital Sign Reading Time Taken Comments Blood Pressure 124/62 12/08/2023 10:04 AM CDT Pulse 72 12/08/2023 10:04 AM CDT Temperature 36.6 ??C (97.8 ??F) 12/08/2023 10:04 AM C DT Respiratory Rate 18 12/08/2023 10:04 AM CDT Oxygen Saturation 97% 12/08/2023 10:04 AM CDT Inhaled Oxygen Concentration - - Weight 78 kg (172 lb) 12/08/2023 10:04 AM CDT Height 165.1 cm (5' 5 ) 12/08/2023 10:04 AM CDT Body Mass Index 28.62 12/08/2023 10:04 AM CDT documented in this encounter Functional Status * Question Answer Date of Assessment Author Little interest or pleasure in doing things Not at all 12/08/2023 9:59 AM CDT Lindsey Solomon CMA Feeling down, depressed, or hopeless Not at all 12/08/2023 9:59 AM CDT Lindsey Solomon CMA * Over the past 2 weeks, how often have you been bothered by any of the following problems? Question Answer Date of Assessment Author Patient Health Questionnaire -2 Score 0 12/08/2023 9:59 AM CDT Lindsey Solomon CMA documented as of this encounter Progress Notes * Dickson Tavarez MD - 12/08/2023 9:45 AM CDT Images from the original note were not included. Patient: Tessy Medina Age: 38 y.o. : 1985 Encounter Dept: [facility] Encounter Date: 12/08/2023 Care Team: Current Providers PCP: Demar Campbell Encounter Provider: Dickson Tavarez MD Referring Provider: not found Consulting Physician: Dickson Tavarez MD C: Dr. Demar Campbell (PCP) HISTORY OF PRESENT ILLNESS: Oralia returns. She is doing stable. She does feel bad overall. She feels like she is having abdominal pain and has had some nausea, vomiting and decreased appetite. She states that she has just had a little piece of toast and small omelet and did not eat anything the rest of the day yesterday. She has had some vomiting. DIAGNOSIS: 1. Beta thalassemia trait with mild microcytosis and ferritin of 300. 2. BRCA2 mutation. 3. Folic acid deficiency. 4. Ulcerative [...] mild microcytosis and ferritin of 300. 2. BRCA2 mutation. 3. Folic acid deficiency. 4. Ulcerative colitis. PLAN: 1. Due to her anorexia, abdominal pain, nausea and vomiting, check beta HCG, glucose and CT scan chest, abdomen, and pelvis to rule out malignancy. She has BRCA2. 2. Continue to follow with OB-SUPPLY CHAIN SYSTEMS MANAGER, Plastic Surgery, Breast Surgery for BRCA2 mutation. 3. Most recent breast MRI looked adequate. She is alternating those and mammograms. 4. No nicotine due to risk of pancreatic cancer. 5. CA-125 has been adequate. We will continue close followup. TIME SPENT: REVIEW OF SYSTEMS: [...] Everywhere. Dickson Tavarez MD, FACP/mgo Vitals: Vitals: 12/08/23 1004 BP: 124/62 BP Location: Left Arm BP Position: Sitting BP Cuff Size: Regular Pulse: 72 Resp: 18 Temp: 97.8 ??F (36.6 ??C) TempSrc: Temporal SpO2: 97% Weight: 172 lb (78 kg) Height: 5' 5 (1.651 m) Body surface area is 1.89 meters squared. Body mass index is 28.62 kg/m??. Pain Score: 7 Pain Loc: Abdomen Allergies: No Known Allergies PMH/SgH/FH/SH: Past medical, [...] Current Medications: Outpatient Encounter Medications as of 12/08/2023 Medication Sig Dispense Refill azithromycin (ZITHROMAX) 250 MG Tablet (Patient not taking: Reported on 12/08/2023) benzonatate (TESSALON) 100 MG Capsule Take 100 mg by mouth 3 times daily. (Patient not taking: Reported on 12/08/2023) clindamycin (CLEOCIN T) 1 % Lotion APPLY EXTERNALLY TO THE AFFECTED AREA OF BODY ACNE TWICE DAILY WHEN PRESENT. (Patient not taking: Reported on 12/08/2023) doxycycline hyclate (VIBRA-TABS) 100 MG Tablet Take 1 Tablet by mouth 2 times daily. (Patient not taking: Reported on 12/08/2023) folic acid (FOLVITE) 1 MG Tablet Take 1 Tablet by mouth daily. (Patient not taking: Reported on 01/24/2023) 90 Tablet 3 ibuprofen (MOTRIN) 800 MG Tablet TAKE 1 TABLET BY MOUTH EVERY 6 TO 8 HOURS WITH FOOD NEEDED (Patient not taking: Reported on 12/08/2023) levonorgestrel (Mirena, 52 MG,) 20 MCG/DAY IUD Mirena 20 mcg/24 hours (7 yrs) 52 mg intrauterine device Take by intrauterine route. (Patient not taking: Reported on 12/08/2023) omeprazole (PriLOSEC) 20 MG CAPSULE DELAYED RELEASE TAKE 1 CAPSULE BY MOUTH EVERY DAY BEFORE A MEAL spironolactone (ALDACTONE) 100 MG Tablet Take 100 mg by mouth daily. (Patient not taking: Reported on 12/08/2023) No facility-administered encounter medications on file as of 12/08/2023. Labs: No visits with results within 7 Day(s) from this visit. Latest known visit with results is: Lab on 01/24/2023 Component Date Value Ref Range Status HAPTO 01/24/2023 98 30 - 200 mg/dL Final Reticulocyte count 01/24/2023 2.44 (H) 0.50 - 1.70 % Final RET-He 01/24/2023 21.20 (L) 28.20 - 36.60 pg Final Comment: RET-He is a direct assessment of incorporation of iron into erythrocyte hemoglobin. It provides an indirect measure of the iron available for new erythropoiesis over past 2-4 days. IRON 01/24/2023 101 50 - 212 ug/dL Final UIBC 01/24/2023 130 (L) 155 - 355 ug/dL Final TIBC 01/24/2023 231 (L) 261 - 478 ug/dl Final % Saturation 01/24/2023 44 20 - 50 % Final Ferritin 01/24/2023 267 11 - 307 ng/mL Final Folate 01/24/2023 10.26 >=5.90 ng/mL Final Vitamin B12 01/24/2023 445 180 - 914 pg/mL Final LDH 01/24/2023 110 (L) 140 - 271 U/L Final Glucose 01/24/2023 101 70 - 105 mg/dL Final Blood Urea Nitrogen 01/24/2023 13 7 - 25 mg/dL Final Creatinine 01/24/2023 0.6 0.6 - 1.2 mg/dL Final Sodium 01/24/2023 139 136 - 145 mEq/L Final Potassium 01/24/2023 4.2 3.5 - 5.1 mEq/L Final Chloride 01/24/2023 107 98 - 107 mEq/L Final Bicarbonate 01/24/2023 26 21 - 31 mEq/L Final Total Bilirubin 01/24/2023 0.8 0.3 - 1.0 mg/dL Final Alk. Phosphatase 01/24/2023 34 34 - 104 U/L Final Aspartate Aminotransferase 01/24/2023 11 (L) 13 - 39 U/L Final Alanine Aminotransferase 01/24/2023 10 7 - 52 U/L Final Total Protein 01/24/2023 6.5 6.4 - 8.9 g/dL Final Albumin 01/24/2023 4.1 3.5 - 5.7 g/dL Final Calcium 01/24/2023 8.8 8.6 - 10.3 mg/dL Final Anion Gap 01/24/2023 10.2 7.0 - 15.0 mEq/L Final Globulin 01/24/2023 2.4 2.0 - 3.5 g/dL Final EGFR 01/24/2023 120 >60 ml/min/1.73m2 Final Comment: This eGFR is calculated using 2020 CKD-EPI Creatinine equation without race modifier based on the NKF-ASN task force recommendations WBC 01/24/2023 9.2 4.0 - 10.0 10*3/uL Final HGB 01/24/2023 10.6 (L) 11.2 - 15.7 g/dL Final HCT 01/24/2023 33.6 (L) 34.1 - 44.9 % Final PLT 01/24/2023 203 163 - 369 10*3/uL Final MPV 01/24/2023 See below 9.4 - 12.4 fL Final Instrument unable to provide an accurate result RBC 01/24/2023 4.60 3.93 - 5.22 10*6/uL Final MCV 01/24/2023 73 (L) 79 - 95 fL Final MCH 01/24/2023 23.0 (L) 25.6 - 32.2 pg Final MCHC 01/24/2023 31.5 (L) 32.2 - 36.5 g/dL Final RDW 01/24/2023 19.9 (H) 11.6 - 14.4 % Final Neutrophils % 01/24/2023 60.1 36.0 - 66.0 % Final Lymphocytes % 01/24/2023 29.0 19.0 - 40.0 % Final Monocytes % 01/24/2023 6.8 4.1 - 12.1 % Final Eosinophils % 01/24/2023 2.3 0.0 - 3.5 % Final Basophils % 01/24/2023 0.5 0.0 - 1.0 % Final Absolute Neutrophils 01/24/2023 5.5 1.4 - 6.6 10*3/uL Final Absolute Lymphocytes 01/24/2023 2.7 0.8 - 4.0 10*3/uL Final Absolute Monocytes 01/24/2023 0.6 0.2 - 1.2 10*3/uL Final Absolute Eosinophils 01/24/2023 0.2 0.0 - 0.4 10*3/uL Final Absolute Basophils 01/24/2023 0.1 0.0 - 0.1 10*3/uL Final WBC Estimate 01/24/2023 Normal Final Platelet Estimate 01/24/2023 Normal Final RBC Morphology 01/24/2023 Abnormal Final Microcytosis 01/24/2023 1+ Final Hypochromasia 01/24/2023 1+ Final Anisocytosis 01/24/2023 2+ Final Poikilocytosis 01/24/2023 1+ Final Teardrop Cells 01/24/2023 1+ Final Target Cells 01/24/2023 1+ Final documented in this encounter Plan of Treatment Upcoming Encounters Date Type Department Care Team (Late st Contact Info) Description 04/05/2024 11:30 AM LEADITE HEATER Lab [facility] [address] [phone] Lab, Cc [facility] 04/05/2024 11:45 AM LEADITE HEATER Office Visit [facility] [address] [phone] Dickson Tavarez MD [address] [place] [phone] documented as of this encounter Results * CT ABDOMEN PELVIS W/ CONTRAST (12/15/2023 10:46 AM CDT) Anatomical Region Laterality Modality Abdomen N/A Computed Tomogra phy Narrative 12/15/2023 10:58 AM CDT EXAMINATION: CT ABDOMEN PELVIS W/ CONTRAST 12/15/2023 HPI: 38-year-old female with abdominal pain. ??Cough. ??Nausea. ??Patient with a history breast carcinoma COMPARISON: Prior pertinent studies TECHNIQUE: Helical imaging of the ??abdomen and pelvis obtained with the intravenous administration of contrast. ?A dose lowering technique was used for this procedure, which may include, but is not limited to, dose reduction techniques, automated exposure controlled techniques, use of iterative reconstruction techniques, and ALARA or ALARA gently techniques. FINDINGS: LUNG BASES: No pulmonary nodules or masses are seen. ??No pleural fluid is identified. HEPATOBILIARY: The known right hepatic lobe hemangioma is re-identified. ??No new hepatic lesions are seen. ??The pancreas is intact. ??No pancreatic mass or peripancreatic inflammation is seen. ??The gallbladder has varicosities but no gallstones or wall thickening is seen. ??The extrahepatic bile duct is intact :Adrenal glands are normal size and morphology. ??Simple renal cysts are seen a UPJ on the right is demonstrated unchanged. ??No obstructive uropathy is seen. ??The uterus contains an IUD. ??No uterine masses are appreciated. ??Complex cystic adnexal disease is present on the right. ??This is 4 x 3.4 cm. GI: Rectal wall thickening is present with some mucosal enhancement. ??The appendix is seen and is within normal limits. ??No obstruction is appreciated. ??No free air is demonstrated. LYMPHATICS: The spleen is prominent unchanged. ??No judie disease is identified. VASCULAR: Varicosities are present. ??The portal vein is dilated. ??Splenic vein and SMV are distended. ??These findings would suggest the presence of portal hypertension. ??Varicosities are seen as mentioned surrounding the gallbladder but also surrounding the esophagus. 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 Electronically signed by: LOC VILLALBA MD Date of Signature: ??12/15/2023 10:58:39 Procedure Note Loc Villalba MD - 12/15/2023 EXAMINATION: CT ABDOMEN PELVIS W/ CONTRAST 12/15/2023 HPI: 38-year-old female with abdominal pain. Cough. Nausea. Patient with ahistory breast carcinoma COMPARISON: Prior pertinent studies TECHNIQUE: Helical imaging of the abdomen and pelvis obtained with the intravenousadministration of contrast. A dose lowering technique was used for this procedure, which mayinclude, but is not limited to, dose reduction techniques, automatedexposure controlled techniques, use of iterative reconstructiontechniques, and ALARA or ALARA gently techniques. FINDINGS: LUNG BASES: No pulmonary nodules or masses are seen. No pleural fluid isidentified. HEPATOBILIARY: The known right hepatic lobe hemangioma is re-identified.No new hepatic lesions are seen. The pancreas is intact. No pancreaticmass or peripancreatic inflammation is seen. The gallbladder hasvaricosities but no gallstones or wall thickening is seen. Theextrahepatic bile duct is intact :Adrenal glands are normal size and morphology. Simple renal cysts areseen a UPJ on the right is demonstrated unchanged. No obstructiveuropathy is seen. The uterus contains an IUD. No uterine masses areappreciated. Complex cystic adnexal disease is present on the right.This is 4 x 3.4 cm. GI: Rectal wall thickening is present with some mucosal enhancement. Theappendix is seen and is within normal limits. No obstruction isappreciated. No free air is demonstrated. LYMPHATICS: The spleen is prominent unchanged. No judie disease isidentified. VASCULAR: Varicosities are present. The portal vein is dilated. Splenicvein and SMV are distended. These findings would suggest the presence ofportal hypertension. Varicosities are seen as mentioned surrounding thegallbladder but also surrounding the esophagus. MUSCULOSKELETAL: Intact IMPRESSION Findings suggest hepatic fibrosis with portal hypertension varicositiesand splenomegaly. Electronically signed by: LOC VILLALBA MD Date of Signature: 12/15/2023 10:58:39 Dickson Tavarez MD IMG CT ORDERABLES Final Res ult * UR TEST QUAL (12/08/2023 10:57 AM CDT) Urine Test Negative Negative [facility] Urine Specific [place] 1.025 =/>1.010 [facility] Urine 12/08/2023 10:5 7 AM CDT Narrative [facility] - 12/08/2023 11:45 AM CDT Release to patient->Immediate us Dickson Tavarez MD URINE ORDERABLES Final Resu lt [facility] [place] [address], [place] [phone] * (ABNORMAL) URINALYSIS WITH MICROSCOPIC [place] (12/08/2023 10:57 AM CDT) Urine Color Light Yellow Straw-Yel low [facility] Urine Clarity Clear Clear [facility] Urine Glucose NEG NEG mg/dL [facility] Urine Bilirubin NEG NEG mg/dL [facility] ER [facility] Urine Ketones NEG NEG mg/dL [facility] Urine Specific [place] 1.025 1.015 - 1.020 [facility] Urine Blood Trace(A) NEG mg/L [facility] Urine pH 5.5 5.0 - 8.0 [pH] [facility] Urine Protein NEG NEG mg/dL [facility] Urine Urobilinogen 0.2 0.2 - 1.0 mg/dL [facility] Urine Nitrite NEG NEG [facility] Urine Leukocytes NEG NEG CAN [facility] Urine Epithelial Cells None None,Rare ,Few /LPF [facility] Urine Mucus None None /LPF [facility] Urine Cast None None /LPF [facility] Urine Bacteria None None /HPF CANCE R [facility] PAINTER [facility] Urine Crystal None None /LPF [facility] Urine White Blood Cells 0-4 0 - 4 /HPF [facility] Urine Red Blood Cells 3-5(A) 0 - 2 /HPF [facility] 12/08/2023 10:5 7 AM CDT Narrative [facility] BO[facility] PAINTER [facility] - 12/08/2023 12:14 PM CDT Release to patient->Immediate Dickson Tavarez MD LAB SEND OUTS Final Resul t [facility] [address] [place] [address], documented in this encounter Visit Diagnoses Diagnosis Ulcerative pancolitis without complication (HCC)- Primary BRCA positive Genetic susceptibility to malignant neoplasm of breast Unintentional weight loss Loss of weight Ulcerative pancolitis without complication (HCC) BRCA positive Genetic susceptibility to malignant neoplasm of breast Ulcerative pancolitis without complication (HCC) BRCA positive Genetic susceptibility to malignant neoplasm of breast Unintentional weight loss Loss of weight documented in this encounter Additional Health Concerns Assessment Noted Time PHQ-9 Depression Total Score: 1 07/18/19 21 8:20 AM CDT documented as of this encounter Care Teams Produce Team Member Relationship Specialty Start Date End Date Demar Campbell [address] [place] [address] PCP - General Family Medicine 07/20/20 12/11/23 documented as of this encounter
--- OUTSIDE RECORDS SUMMARY | 2024-03-19 00:54 | XMS_ITS | Encounter Summary ---
Author Organization [facility] Address [address] [place] [address] Phone Care Team Providers Care Terminal Manager Name Role Phone Demar Campbell Primary Care Provider [phone] Demar Campbell Primary Care Provider [phone] Demar Campbell Unavailable Celina Ng MD Unavailable Encounter Details Date Type Department Care Team (Late st Contact Info) Description 07/16/2021 Telephone [facility] [address] [place] [phone] Dickson Tavarez MD [address] [place] [phone] Social History Tobacco Use Types Packs/Day Years Used Date Smoking Tobacco: Every Day Cigarettes Smokeless Tobacco: Never PHQ-2 Answer Date Recorded Total Score - Questions 1-9 1 05/2020 Sexually Active Control Partners Comments Yes Comments No Sex and Gender Information Value Date Recorded Sex Assigned at Not on file Legal Sex Female 10:31 AM DIGITAL MARKETING MANAGER Gender Identity Not on file Sexual Orientation Not on file documented as of this encounter Miscellaneous Notes * Telephone Encounter - Luz Elena Ventura - 07/16/2021 10:07 AM CDT Called to reschedule pt NS OV. Left message. Sent letter out documented in this encounter Plan of Treatment Upcoming Encounters Date Type Department Care Team (Late st Contact Info) Description 04/05/2024 11:30 AM DIGITAL MARKETING MANAGER Lab [facility] [address] [phone] Lab, Cc [facility] 04/05/2024 11:45 AM DIGITAL MARKETING MANAGER Office Visit [facility] [address] [phone] Dickson Tavarez MD [address] [place] [phone] documented as of this encounter Visit Diagnoses Not on filedocumented in this encounter Additional Health Concerns Assessment Noted Time PHQ-9 Depression Total Score: 1 07/18/19 21 8:20 AM CDT documented as of this encounter Care Teams Terminal Manager Relationship Specialty Start Date End Date Demar Campbell [address] [place] [address] PCP - General Family Medicine 07/20/20 12/11/23 Demar Campbell [address] [place] [address] PCP - General Family Medicine 12/12/23 Demar Campbell [address] [place] [address] Family Medicine 12/12/23 Celina Ng MD [address] [place] [phone] Consulting Physician Oncology 12/12/23 documented as of this encounter
--- OUTSIDE RECORDS SUMMARY | 2024-03-19 00:54 | XMS_ITS | Encounter Summary ---
Author Organization [employer] Care Team Providers Care Rope Maker Name Role Phone Juliann Frias MD Primary Care Provider [phone] Encounter Details Date Type Department Care Team (Latest Contact Info) Description 07/17/2020 Travel Social History Tobacco Use Types Packs/Day Years Used Date Smoking Tobacco: Every Day Cigarettes Smokeless Tobacco: Never PHQ-2 Answer Date Recorded Total Score - Questions 1-9 1 05/2020 Sexually Active Control Partners Comments Yes Comments No Sex and Gender Information Value Date Recorded Sex Assigned at Not on file Legal Sex Female 10:31 AM INSTRUMENT CHECKER Gender Identity Not on file Sexual Orientation [...] st Contact Info) Description 04/05/2024 11:30 AM INSTRUMENT CHECKER Lab [facility] [address] [phone] Lab, Cc [facility] 04/05/2024 11:45 AM INSTRUMENT CHECKER Office Visit [facility] [address] [phone] Dickson Tavarez MD [address] [place] [phone] documented as of this encounter Visit Diagnoses Not on filedocumented in this encounter Additional Health Concerns Assessment Noted Time PHQ-9 Depression Total Score: 1 07/18/19 21 8:20 AM CDT documented as of this encounter Care Teams Rope Maker Relationship Specialty Start Date End Date Juliann Frias MD [address] [place] [address] PCP - General Family Medicine 11/08/16 07/19/20 documented as of this encounter
--- OUTSIDE RECORDS SUMMARY | 2024-03-19 00:54 | XMS_ITS | Encounter Summary ---
Author Organization [facility] Address [address] [place] [address] Phone Care Team Providers Care Vp Director Of Finance Name Role Phone Demar Campbell Primary Care Provider [phone] Reason for Visit * Reason Comments Follow-up Encounter Details Date Type Department Care Team (Latest Contact Info) Description 01/14/2022 1:45 PM CDT Office Visit [facility] [address] [phone] Dickson Tavarez MD [address] [place] [phone] Ulcerative pancolitis without complication (HCC) (Primary Dx); BRCA positive Social History Tobacco Use Types Packs/Day Years Used Date Smoking Tobacco: Every Day Cigarettes Smokeless Tobacco: Never Tobacco Cessation:Ready to Q uit: No; Counseling Given: Yes PHQ-2 Answer Date Recorded Total Score - Questions 1-9 1 05/2020 Sexually Active Control Partners Comments Yes Comments No Sex and Gender Information Value Date Recorded Sex Assigned at Not on file Legal Sex Female 10:31 AM CAR INSPECTION AND REPAIR MANAGER Gender Identity Not on file Sexual Orientation Not on file COVID-19 Exposure Response Date Recorded In the last 10 days, have yo u been in contact with someone who was confirmed or suspected to have Coronavirus/COVID-19? No / Unsure 01/14/2022 1:48 PM CDT documented as of this encounter Last Filed Vital Signs Vital Sign Reading Time Taken Comments Blood Pressure 108/66 01/14/2022 1:54 PM CDT Pulse 71 01/14/2022 1:54 PM CDT Temperature 36.6 ??C (97.8 ??F) 01/14/2022 1:54 PM CD T Respiratory Rate - - Oxygen Saturation 99% 01/14/2022 1:54 PM CDT Inhaled Oxygen Concentration - - Weight 77.1 kg (170 lb) 01/14/2022 1:54 PM CDT Height 165.1 cm (5' 5 ) 01/14/2022 1:54 PM CDT Body Mass Index 28.29 01/14/2022 1:54 PM CDT documented in this encounter Progress Notes * Dickson Tavarez MD - 01/14/2022 1:45 PM CDT Images from the original note were not included. Patient: Tessy Medina Age: 36 y.o. : 1985 [facility] Encounter Date: 01/14/2022 Care Team: Current Providers PCP: Demar Campbell Encounter Provider: Dickson Tavarez MD Referring Provider: not found Consulting Physician: Dickson Tavarez MD C: Dr. Demar Campbell (PCP) HISTORY OF PRESENT ILLNESS: Oralia returns. She is doing stable. She is continuing to follow with Plastic Surgery considering surgery next summer. She continues to follow with [facility] getting female exam. Also, found to have ulcerative colitis with a rectal ulcer. DIAGNOSIS: 1. Beta thalassemia trait with mild [...] acid deficiency. 4. Ulcerative colitis. PLAN: 1. Continue to follow for beta thalassemia. Recommend she take folic acid. 2. Continue to follow with [facility], Plastic Surgery, and Breast Surgery for BRCA 2 mutation. 3. Abstain for nicotine due to risk of pancreatic cancer. The patient will call in the interim withchanges. TIME SPENT: REVIEW OF SYSTEMS: See HPI; [...] as per Care Everywhere. Dickson Tavarez MD, [facility] [place]: Vitals: 01/14/22 1354 BP: 108/66 BP Location: Left Arm BP Position: Sitting BP Cuff Size: Regular Pulse: 71 Temp: 97.8 ??F (36.6 ??C) TempSrc: Temporal SpO2: 99% Weight: 170 lb (77.1 kg) Height: 5' 5 (1.651 m) Body surface area is 1.88 meters squared. Body mass index is 28.29 kg/m??. Pain Score: 0 - No pain Allergies: No Known Allergies PMH/SgH/FH/SH: Past medical, surgical, family and social histories were reviewed at this visit. Past Medical History Positives Diagnosis Date ??? Ulcerative colitis (HCC) Past Surgical History: Procedure Laterality Date ??? SECTION Family History Problem Relation Age of Onset ??? Cancer Mother ??? Anemia Brother Family Status Relation Name Status ??? Mother ??? Father Alive ??? Sister Alive ??? Brother Alive ??? Brother Alive ??? Sister Alive Social History Socioeconomic History ??? Marital status: Unknown Spouse name: Seth ??? Number of children: 4 Tobacco Use ??? Smoking status: Current Every Day Smoker Types: Cigarettes ??? Smokeless tobacco: Never Used Vaping Use ??? Vaping Use: Never used Substance and Sexual Activity ??? Sexual activity: Yes Other Topics Concern ??? Occupational Exposure No Oncology History: Oncology History No history exists. Cancer Staging: Cancer Staging No matching staging information was found for the patient. Cumulative dose Purpose/Goal Comments Lifetime Dose Tracking No doses have been documented on this patient for the following tracked chemicals: Doxorubicin, Epirubicin, Idarubicin, Daunorubicin, Mitoxantrone, Bleomycin Current Medications: Outpatient Encounter Medications as of 01/14/2022 Medication Sig Dispense Refill ??? clindamycin (CLEOCIN T) 1 % Lotion APPLY EXTERNALLY TO THE AFFECTED AREA OF BODY ACNE TWICE DAILY WHEN PRESENT. ??? doxycycline hyclate (VIBRA-TABS) 100 MG Tablet Take 100 mg by mouth 2 times daily. ??? folic acid (FOLVITE) 1 MG Tablet Take 1 Tablet by mouth daily. 90 Tablet 3 ??? ibuprofen (MOTRIN) 800 MG Tablet TAKE 1 TABLET BY MOUTH EVERY 6 TO 8 HOURS WITH FOOD NEEDED ??? levonorgestrel (Mirena, 52 MG,) 20 MCG/DAY IUD Mirena 20 mcg/24 hours (7 yrs) 52 mg intrauterine device Take by intrauterine route. ??? mesalamine (CANASA) 1000 MG Suppository ??? spironolactone (ALDACTONE) 100 MG Tablet Take 100 mg by mouth daily. ??? tretinoin (RETIN-A) 0.025 % Cream APPLY TOPICALLY TO THE AFFECTED AREA EVERY DAY No facility-administered encounter medications on file as of 01/14/2022. Labs: No visits with results within 7 Day(s) from this visit. Latest known visit with results is: Lab on 07/17/2020 Component Date Value Ref Range Status ??? TSH 07/17/2020 2.80 0.45 - 5.33 uIU/mL Final ??? LDH 07/17/2020 126 (A) 140 - 271 U/L Final ??? HAPTO 07/17/2020 99 30 - 200 mg/dL Final ??? Reticulocyte count 07/17/2020 2.36 (A) 0.50 - 1.70 % Final ??? RET-He 07/17/2020 23.00 (A) 28.20 - 36.60 pg Final Comment: RET-He is a direct assessment of incorporation of iron into erythrocyte hemoglobin. It provides an indirect measure of the iron available for new erythropoiesis over past 2-4 days. ??? IRON 07/17/2020 87 50 - 212 ug/dL Final ??? UIBC 07/17/2020 149 (A) 155 - 355 ug/dL Final ??? TIBC 07/17/2020 236 (A) 261 - 478 ug/dl Final ??? % Saturation 07/17/2020 37 20 - 50 % Final ??? Ferritin 07/17/2020 340 (A) 11 - 307 ng/mL Final ? ? Folate 07/17/2020 11.77 >=5.90 ng/mL Final ??? Vitamin B12 07/17/2020 262 180 - 914 pg/mL Final ??? Glucose 07/17/2020 106 (A) 70 - 105 mg/dL Final ??? Blood Urea Nitrogen 07/17/2020 10 7 - 25 mg/dL Final ??? Creatinine 07/17/2020 0.5 (A) 0.6 - 1.2 mg/dL Final ??? Sodium 07/17/2020 141 136 - 145 mEq/L Final ??? Potassium 07/17/2020 4.1 3.5 - 5.1 mEq/L Final ??? Chloride 07/17/2020 108 (A) 98 - 107 mEq/L Final ??? Bicarbonate 07/17/2020 26 21 - 31 mEq/L Final ??? Total Bilirubin 07/17/2020 0.5 0.3 - 1.0 mg/dL Final ??? Alk. Phosphatase 07/17/2020 39 34 - 104 U/L Final ??? Aspartate Aminotransferase 07/17/2020 13 13 - 39 U/L Final ??? Alanine Aminotransferase 07/17/2020 15 7 - 52 U/L Final ??? Total Protein 07/17/2020 6.4 6.4 - 8.9 g/dL Final ??? Albumin 07/17/2020 4.2 3.5 - 5.7 g/dL Final ??? Calcium 07/17/2020 8.5 (A) 8.6 - 10.3 mg/dL Final ??? Anion Gap 07/17/2020 11.1 7.0 - 15.0 mEq/L Final ??? Globulin 07/17/2020 2.2 2.0 - 3.5 g/dL Final ? ? EGFR (Non ) 07/17/2020 >60 >60 ml/min Final ? ? EGFR () 07/17/2020 >60 >60 ml/min Final ??? WBC 07/17/2020 9.6 4.0 - 10.0 10*3/uL Final ??? HGB 07/17/2020 10.3 (A) 11.2 - 15.7 g/dL Final ??? HCT 07/17/2020 32.8 (A) 34.1 - 44.9 % Final ??? PLT 07/17/2020 195 163 - 369 10*3/uL Final ??? MPV 07/17/2020 See Below 9.4 - 12.4 fL Final ??? RBC 07/17/2020 4.70 3.93 - 5.22 10*6/uL Final ??? MCV 07/17/2020 70 (A) 79 - 95 fL Final ??? MCH 07/17/2020 21.9 (A) 25.6 - 32.2 pg Final ??? MCHC 07/17/2020 31.4 (A) 32.2 - 36.5 g/dL Final ??? RDW 07/17/2020 18.5 (A) 11.6 - 14.4 % Final ??? Absolute Neutrophil Count 07/17/2020 5,652 cells/uL Final ??? Absolute Seg Count 07/17/2020 5,652 1,440 - 6,600 cells/uL Final ??? Absolute [place] Count 07/17/2020 862 160 - 1,200 cells/uL Final ??? Absolute Eos Count 07/17/2020 383 (A) 0 - 300 cells/uL Final ??? Absolute Baso Count 07/17/2020 96 0 - 100 cells/uL Final ??? Segmented Neutrophils 07/17/2020 59 36 - 66 % Final ??? Lymphocytes 07/17/2020 27 19 - 40 % Final ??? Monocytes 07/17/2020 9 4 - 12 % Final ??? Eosinophils 07/17/2020 4 (A) 0 - 3 % Final ??? Basophils 07/17/2020 1 0 - 1 % Final ??? WBC Estimate 07/17/2020 Normal Final ??? Platelet Estimate 07/17/2020 Normal Final ??? RBC Morphology 07/17/2020 Abnormal Final ??? Microcytosis 07/17/2020 1+ Final ??? Hypochromasia 07/17/2020 1+ Final ??? Anisocytosis 07/17/2020 1+ Final ??? Poikilocytosis 07/17/2020 1+ Final ??? Teardrop Cells 07/17/2020 1+ Final documented in this encounter Plan of Treatment Upcoming Encounters Date Type Department Care Team (Late st Contact Info) Description 04/05/2024 11:30 AM CAR INSPECTION AND REPAIR MANAGER Lab [facility] [address] [phone] Lab, [facility] 04/05/2024 11:45 AM CAR INSPECTION AND REPAIR MANAGER Office Visit [facility] [address] [phone] Dickson Tavarez MD [address] [place] [phone] documented as of this encounter Results * HAPTOGLOBIN (01/24/2023 9:36 AM CAR INSPECTION AND REPAIR MANAGER) HAPTO 98 30 - 200 mg/dL [facility] Blood 01/24/2023 9:36 AM CAR INSPECTION AND REPAIR MANAGER Narrative [facility] - 01/24/2023 1:54 PM CAR INSPECTION AND REPAIR MANAGER Release to patient->Immediate us Dickson Tavarez MD CHEMISTRY ORDERABLES Final Result Performing Organization Address [facility] Co de Phone Number [facility] [place] [facility] [address] [place] [address], [place] [phone] * (ABNORMAL) RETICULOCYTE COUNT (RETIC) (01/24/2023 9:36 AM CAR INSPECTION AND REPAIR MANAGER) Reticulocyte count 2.44(H) 0.50 - 1.70 % [facility] SUPER[employer] [place] [facility] RET-He 21.20(L) 28.20 - 36.60 pg [facility]PER[employer] [place] [facility] Comment: RET-He is a direct assessment of incorporation of iron into erythrocyte hemoglobin. It provides an indirect measure of the iron available for new erythropoiesis over past 2-4 days. Blood 01/24/2023 9:36 AM CAR INSPECTION AND REPAIR MANAGER Narrative [facility] - 01/24/2023 10:30 AM CAR INSPECTION AND REPAIR MANAGER Release to patient->Immediate us Dickson Tavarez MD HEMATOLOGY ORDERABLES Final Result Performing Organization Address [facility] Co de Phone Number CANCER SUPER[employer] [place] [facility] [address] [place] [address], [place] [phone] * (ABNORMAL) IRON W/ IRON BINDING [place] (01/24/2023 9:36 AM CAR INSPECTION AND REPAIR MANAGER) IRON 101 50 - 212 ug/dL [facility] UIBC 130(L) 155 - 355 ug/dL [facility] TIBC 231(L) 261 - 478 ug/dl [facility] [place] [facility] % Saturation 44 20 - 50 % [facility] [place] [facility] 01/24/2023 9:36 AM CAR INSPECTION AND REPAIR MANAGER Janie [facility] - 01/24/2023 10:30 AM CAR INSPECTION AND REPAIR MANAGER Release to patient->Immediate us Dickson Tavarez MD LAB SEND OUTS Final Resul t Performing Organization Address [facility] Co de Phone Number [facility] [place] [facility] [place] [address] [place] [address], * FERRITIN (01/24/2023 9:36 AM CAR INSPECTION AND REPAIR MANAGER) Ferritin 267 11 - 307 ng/mL [facility] [place] [facility] Blood 01/24/2023 9:36 AM CAR INSPECTION AND REPAIR MANAGER Narrative [facility] [place] [facility] - 01/24/2023 2:25 PM CAR INSPECTION AND REPAIR MANAGER Release to patient->Immediate us Dickson Tavarez MD CHEMISTRY ORDERABLES Final Result Performing Organization Address [facility] Co de Phone Number [facility] [employer] [place] [facility] [place] [address] [place] [address], [place] [phone] * FOLIC ACID (FOLATE) (01/24/2023 9:36 AM CAR INSPECTION AND REPAIR MANAGER) Folate 10.26 >=5.90 ng/mL [facility] [place] [facility] Blood 01/24/2023 9:36 AM CAR INSPECTION AND REPAIR MANAGER [facility] - 01/24/2023 2:25 PM CAR INSPECTION AND REPAIR MANAGER IS THE PATIENT REQUIRED TO BE FASTING FOR 12 HOURS?->No Release to patient->Immediate us Dickson Tavarez MD CHEMISTRY ORDERABLES Final Result Performing Organization Address [facility] Co de Phone Number CANCER SUPER[employer] [place] [facility] [place] [address] [place] [address], [place] [phone] * VITAMIN B12 (01/24/2023 9:36 AM CAR INSPECTION AND REPAIR MANAGER) Vitamin B12 445 180 - 914 pg/mL [facility] [place] [facility] Blood 01/24/2023 9:36 AM CAR INSPECTION AND REPAIR MANAGER [facility] - 01/24/2023 2:25 PM CAR INSPECTION AND REPAIR MANAGER Release to patient->Immediate us Dickson Tavarez MD CHEMISTRY ORDERABLES Final Result Performing Organization Address City/[facility]/ZIP Co de Phone Number CANCER SUPER[employer] [place] [facility] [place] [address], * (ABNORMAL) LACTATE DEHYDROGENASE (LD) (01/24/2023 9:36 AM CAR INSPECTION AND REPAIR MANAGER) LDH 110(L) 140 - 271 U/L [facility] Blood 01/24/2023 9:36 AM CAR INSPECTION AND REPAIR MANAGER Narrative [facility] - 01/24/2023 10:30 AM CAR INSPECTION AND REPAIR MANAGER Release to patient->Immediate us Dickson Tavarez MD CHEMISTRY ORDERABLES Final Result Performing Organization Address [facility] Co de Phone Number CANCER SUPER[employer] [place] [facility] [place] [address], * (ABNORMAL) CMP (COMPREHENSIVE METABOLIC PANEL) (01/24/2023 9:36 AM CAR INSPECTION AND REPAIR MANAGER) Glucose 101 70 - 105 mg/dL [facility] Blood Urea Nitrogen 13 7 - 25 mg/dL [facility] Creatinine 0.6 0.6 - 1.2 mg/dL [facility] Sodium 139 136 - 145 mEq/L [facility] Potassium 4.2 3.5 - 5.1 mEq/L [facility] SU[facility] Chloride 107 98 - 107 mEq/L [facility] Bicarbonate 26 21 - 31 mEq/L [facility] SUPER[facility] Total Bilirubin 0.8 0.3 - 1.0 mg/dL [facility] Alk. Phosphatase 34 34 - 104 U/L [facility] Aspartate Aminotransferase 11(L) 13 - 39 U/L [facility] Alanine Aminotransferase 10 7 - 52 U/L [facility] Total Protein 6.5 6.4 - 8.9 g/dL [facility] Albumin 4.1 3.5 - 5.7 g/dL [facility] Calcium 8.8 8.6 - 10.3 mg/dL [facility] Anion Gap 10.2 7.0 - 15.0 mEq/L [facility] Globulin 2.4 2.0 - 3.5 g/dL [facility] EGFR 120 >60 ml/min/1. 73m2 [facility] Comment: This eGFR is calculated using 2020 CKD-EPI Creatinine equation without race modifier based on the NKF-ASN task force recommendations Blood 01/24/2023 9:36 AM CAR INSPECTION AND REPAIR MANAGER Narrative [facility] - 01/24/2023 10:30 AM CAR INSPECTION AND REPAIR MANAGER IS THE PATIENT REQUIRED TO BE FASTING FOR 8 HOURS?->No Release to patient->Immediate Dickson Tavarez MD CHEMISTRY ORDERABLES Final Result [facility] [place] [facility] [address] [place] [address], documented in this encounter Visit Diagnoses Diagnosis Ulcerative pancolitis without complication (HCC)- Primary BRCA positive Genetic susceptibility to malignant neoplasm of breast Ulcerative pancolitis without complication (HCC) BRCA positive Genetic susceptibility to malignant neoplasm of breast documented in this encounter Additional Health Concerns Assessment Noted Time PHQ-9 Depression Total Score: 1 07/18/19 21 8:20 AM CDT documented as of this encounter Care Teams Vp Director Of Finance Relationship Specialty Start Date End Date Demar Campbell [address] [place] [address] PCP - General Family Medicine 07/20/20 12/11/23 documented as of this encounter
--- OUTSIDE RECORDS SUMMARY | 2024-03-19 00:54 | XMS_ITS | Encounter Summary ---
Author Organization [facility] Address [address] [place] [address] Phone Care Team Providers Care Correctional Cook Name Role Phone Demar Campbell Primary Care Provider [phone] Reason for Visit * Reason Comments Follow-up Encounter Details Date Type Department Care Team (Late st Contact Info) Description 01/24/2023 9:30 AM FIELD SUPPORT ENGINEER Office Visit [facility] [address] [place] [phone] Mariel De Dios, CONTACT LENS MANUFACTURER, ELECTRONIC INTEGRATED SYSTEMS MECHANIC [address] [place] [phone] Ulcerative pancolitis without complication (HCC) (Primary Dx); BRCA positive Social History Tobacco Use Types Packs/Day Years Used Date Smoking Tobacco: Every Day Cigarettes Smokeless Tobacco: Never Tobacco Cessation:Ready to Q uit: Not Asked; Counseling Given: Not Answered PHQ-2 Answer Date Recorded Total Score - Questions 1-9 1 05/2020 Sexually Active Control Partners Comments Yes Comments No Sex and Gender Information Value Date Recorded Sex Assigned at Not on file Legal Sex Female 10:31 AM FIELD SUPPORT ENGINEER Gender Identity Not on file Sexual Orientation Not on file COVID-19 Exposure Response Date Recorded In the last 10 days, have yo u been in contact with someone who was confirmed or suspected to have Coronavirus/COVID-19? No / Unsure 01/24/2023 9:27 AM FIELD SUPPORT ENGINEER documented as of this encounter Last Filed Vital Signs Vital Sign Reading Time Taken Comments Blood Pressure 124/72 01/24/2023 9:44 AM FIELD SUPPORT ENGINEER Pulse 90 01/24/2023 9:44 AM FIELD SUPPORT ENGINEER Temperature 36.6 ??C (97.8 ??F) 01/24/2023 9:44 AM CS T Respiratory Rate 18 01/24/2023 9:44 AM FIELD SUPPORT ENGINEER Oxygen Saturation 100% 01/24/2023 9:44 AM FIELD SUPPORT ENGINEER Inhaled Oxygen Concentration - - Weight 79.2 kg (174 lb 11.2 oz) 01/24/2023 9:44 AM FIELD SUPPORT ENGINEER Height 165.1 cm (5' 5 ) 01/24/2023 9:44 AM FIELD SUPPORT ENGINEER Body Mass Index 29.07 01/24/2023 9:44 AM FIELD SUPPORT ENGINEER documented in this encounter Functional Status * Question Answer Date of Assessment Author Little interest or pleasure in doing things Not at all 01/24/2023 9:44 AM FIELD SUPPORT ENGINEER Shilpa Shanks LPN Feeling down, depressed, or hopeless Not at all 01/24/2023 9:44 AM FIELD SUPPORT ENGINEER Shilpa Shanks LPN * Over the past 2 weeks, how often have you been bothered by any of the following problems? Question Answer Date of Assessment Author Patient Health Questionnaire -2 Score 0 01/24/2023 9:44 AM Shilpa Peguero LPN documented as of this encounter Progress Notes * Mariel Contreras APRN, ELECTRONIC INTEGRATED SYSTEMS MECHANIC - 01/24/2023 9:30 AM CST Images from the original note were not included. Patient: Tessy Medina Age: 37 y.o. : 1985 [facility] Date: 01/24/2023 Care Team: Current Providers PCP: Demar Campbell Encounter Provider: Mariel Contreras APRN, ELECTRONIC INTEGRATED SYSTEMS MECHANIC Referring Provider: not found Nurse Practitioner: Mariel Contreras APRN, ELECTRONIC INTEGRATED SYSTEMS MECHANIC C: Dr. Demar Campbell (PCP) HISTORY OF PRESENT ILLNESS: Ms. Tessy Medina returns to clinic for follow-up. Since her last visit, Tessy states she has been doing fairly well. She continues following with OB-PROPERTY TECHNICIAN and getting her female exams. She is also following with plastic surgery and breast surgery for her BRCA 2 mutation. She has not had any surgery at this time, but is still consider this. Patient continues on folicacid 1 mg daily. DIAGNOSIS: 1. Beta thalassemia trait with mild [...] acid deficiency. 4. Ulcerative colitis. PLAN: 1. At this time, I discussed with Tessy that clinically she is doing well. 2. Laboratory evaluation from 01/24/23 showed a white blood cell count of 9.2, hemoglobin stable at10.6, hematocrit 33.6, and platelet count of 203,000. MCV 73. MCH 23.0. Creatinine 0.6. LDH 110. Reticulocyte count 2.44%. Iron studies, ferritin, vitamin B12, and folic acid are still in process. 3. Continue folic acid 1 mg daily for beta thalassemia. Her microcytosis and mild anemia is also secondary to this. 4. Continue to follow with OB-PROPERTY TECHNICIAN, Plastic Surgery, and Breast Surgery for BRCA 2 mutation. 5. Encouraged patient to abstain for nicotine due to the risk of pancreatic cancer. 6. I will have the patient return to clinic for follow-up with office visit and labs again in one year. 7. I encouraged the patient to call with any questions, problems, or concerns that she may have. Dr. Ames was present in the clinic to answer any questions. TIME SPENT: REVIEW OF SYSTEMS: See HPI; [...] as per Care Everywhere. Dickson Tavarez MD, FACP Mariel Contreras DNP, SPLIT LEATHER DEPARTMENT SUPERVISOR- Vitals: Vitals: 01/24/23 0944 BP: 124/72 BP Location: Left Arm BP Position: Sitting BP Cuff Size: Regular Pulse: 90 Resp: 18 Temp: 97.8 ??F (36.6 ??C) TempSrc: Temporal SpO2: 100% Weight: 174 lb 11.2 oz (79.2 kg) Height: 5' 5 (1.651 m) Body surface area is 1.91 meters squared. Body mass index is 29.07 kg/m??. Pain Score: 0 - No pain [...] children: 4 Tobacco Use ??? Smoking status: Every Day Types: Cigarettes ??? Smokeless tobacco: Never Vaping Use ??? [...] Current Medications: Outpatient Encounter Medications as of 01/24/2023 Medication Sig Dispense Refill ??? azithromycin (ZITHROMAX) 250 MG Tablet ??? benzonatate (TESSALON) 100 MG Capsule Take 100 mg by mouth 3 times daily. ??? clindamycin (CLEOCIN T) 1 % Lotion APPLY EXTERNALLY TO THE AFFECTED AREA OF BODY ACNE TWICE DAILY WHEN PRESENT. ??? doxycycline hyclate (VIBRA-TABS) 100 MG Tablet Take 1 Tablet by mouth 2 times daily. ??? [DISCONTINUED] doxycycline hyclate (VIBRA-TABS) 100 MG Tablet Take 100 mg by mouth 2 times daily. ??? folic acid (FOLVITE) 1 MG Tablet Take 1 Tablet by mouth daily. (Patient not taking: Reported on01/24/2023) 90 Tablet 3 ??? ibuprofen (MOTRIN) 800 MG Tablet TAKE 1 TABLET BY MOUTH EVERY 6 TO 8 HOURS WITH FOOD NEEDED ??? levonorgestrel (Mirena, 52 MG,) 20 MCG/DAY IUD Mirena 20 mcg/24 hours (7 yrs) 52 mg intrauterine device Take by intrauterine route. ??? [DISCONTINUED] mesalamine (CANASA) 1000 MG Suppository ??? spironolactone (ALDACTONE) 100 MG Tablet Take 100 mg by mouth daily. ??? [DISCONTINUED] tretinoin (RETIN-A) 0.025 % Cream APPLY TOPICALLY TO THE AFFECTED AREA EVERY DAY No facility-administered encounter medications on file as of 01/24/2023. Labs: Lab on 01/24/2023 Component Date Value Ref Range Status ??? HAPTO 01/24/2023 98 30 - 200 mg/dL Final ??? Reticulocyte count 01/24/2023 2.44 (H) 0.50 - 1.70 % Final ??? RET-He 01/24/2023 21.20 (L) 28.20 - 36.60 pg Final Comment: RET-He is a direct assessment of incorporation of iron into erythrocyte hemoglobin. It provides an indirect measure of the iron available for new erythropoiesis over past 2-4 days. ??? IRON 01/24/2023 101 50 - 212 ug/dL Final ??? UIBC 01/24/2023 130 (L) 155 - 355 ug/dL Final ??? TIBC 01/24/2023 231 (L) 261 - 478 ug/dl Final ??? % Saturation 01/24/2023 44 20 - 50 % Final ??? Ferritin 01/24/2023 267 11 - 307 ng/mL Final ? ? Folate 01/24/2023 10.26 >=5.90 ng/mL Final ??? Vitamin B12 01/24/2023 445 180 - 914 pg/mL Final ??? LDH 01/24/2023 110 (L) 140 - 271 U/L Final ??? Glucose 01/24/2023 101 70 - 105 mg/dL Final ??? Blood Urea Nitrogen 01/24/2023 13 7 - 25 mg/dL Final ??? Creatinine 01/24/2023 0.6 0.6 - 1.2 mg/dL Final ??? Sodium 01/24/2023 139 136 - 145 mEq/L Final ??? Potassium 01/24/2023 4.2 3.5 - 5.1 mEq/L Final ??? Chloride 01/24/2023 107 98 - 107 mEq/L Final ??? Bicarbonate 01/24/2023 26 21 - 31 mEq/L Final ??? Total Bilirubin 01/24/2023 0.8 0.3 - 1.0 mg/dL Final ??? Alk. Phosphatase 01/24/2023 34 34 - 104 U/L Final ??? Aspartate Aminotransferase 01/24/2023 11 (L) 13 - 39 U/L Final ??? Alanine Aminotransferase 01/24/2023 10 7 - 52 U/L Final ??? Total Protein 01/24/2023 6.5 6.4 - 8.9 g/dL Final ??? Albumin 01/24/2023 4.1 3.5 - 5.7 g/dL Final ??? Calcium 01/24/2023 8.8 8.6 - 10.3 mg/dL Final ??? Anion Gap 01/24/2023 10.2 7.0 - 15.0 mEq/L Final ??? Globulin 01/24/2023 2.4 2.0 - 3.5 g/dL Final ? ? EGFR 01/24/2023 120 >60 ml/min/1.73m2 Final Comment: This eGFR is calculated using 2020 CKD-EPI Creatinine equation without race modifier based on the NKF-ASN task force recommendations ??? WBC 01/24/2023 9.2 4.0 - 10.0 10*3/uL Final ??? HGB 01/24/2023 10.6 (L) 11.2 - 15.7 g/dL Final ??? HCT 01/24/2023 33.6 (L) 34.1 - 44.9 % Final ??? PLT 01/24/2023 203 163 - 369 10*3/uL Final ??? MPV 01/24/2023 See below 9.4 - 12.4 fL Final Instrument unable to provide an accurate result ??? RBC 01/24/2023 4.60 3.93 - 5.22 10*6/uL Final ??? MCV 01/24/2023 73 (L) 79 - 95 fL Final ??? MCH 01/24/2023 23.0 (L) 25.6 - 32.2 pg Final ??? MCHC 01/24/2023 31.5 (L) 32.2 - 36.5 g/dL Final ??? RDW 01/24/2023 19.9 (H) 11.6 - 14.4 % Final ??? Neutrophils % 01/24/2023 60.1 36.0 - 66.0 % Final ??? Lymphocytes % 01/24/2023 29.0 19.0 - 40.0 % Final ??? Monocytes % 01/24/2023 6.8 4.1 - 12.1 % Final ??? Eosinophils % 01/24/2023 2.3 0.0 - 3.5 % Final ??? Basophils % 01/24/2023 0.5 0.0 - 1.0 % Final ??? Absolute Neutrophils 01/24/2023 5.5 1.4 - 6.6 10*3/uL Final ??? Absolute Lymphocytes 01/24/2023 2.7 0.8 - 4.0 10*3/uL Final ??? Absolute Monocytes 01/24/2023 0.6 0.2 - 1.2 10*3/uL Final ??? Absolute Eosinophils 01/24/2023 0.2 0.0 - 0.4 10*3/uL Final ??? Absolute Basophils 01/24/2023 0.1 0.0 - 0.1 10*3/uL Final ??? WBC Estimate 01/24/2023 Normal Final ??? Platelet Estimate 01/24/2023 Normal Final ??? RBC Morphology 01/24/2023 Abnormal Final ??? Microcytosis 01/24/2023 1+ Final ??? Hypochromasia 01/24/2023 1+ Final ??? Anisocytosis 01/24/2023 2+ Final ??? Poikilocytosis 01/24/2023 1+ Final ??? Teardrop Cells 01/24/2023 1+ Final ??? Target Cells 01/24/2023 1+ Final Cosigned by Dickson Tavarez MD at 02/04/2023 11:47 AM FIELD SUPPORT ENGINEER Electronically signed by Mariel Contreras APRN, ELECTRONIC INTEGRATED SYSTEMS MECHANIC at 02/03/2023 8:44 PM FIELD SUPPORT ENGINEER D SUPPORT ENGINEER documented in this encounter Plan of Treatment Upcoming Encounters Date Type Department Care Team (Late st Contact Info) Description 04/05/2024 11:30 AM FIELD SUPPORT ENGINEER Lab [facility] [address] [phone] Lab, [facility] 04/05/2024 11:45 AM FIELD SUPPORT ENGINEER Office Visit [facility] [address] [address] Dickson Tavarez MD [address] [place] [phone] documented as of this encounter Results * (ABNORMAL) RETICULOCYTE COUNT (RETIC) (01/30/2024 12:19 PM FIELD SUPPORT ENGINEER) Reticulocyte count 1.86(H) 0.50 - 1.70 % [facility] RET-He 22.10(L) 28.20 - 36.60 pg [facility] Comment: RET-He is a direct assessment of incorporation of iron into erythrocyte hemoglobin. It provides an indirect measure of the iron available for new erythropoiesis over past 2-4 days. Blood 01/30/2024 12:1 9 PM FIELD SUPPORT ENGINEER [facility] 01/30/2024 12:27 PM FIELD SUPPORT ENGINEER Release to patient->Immediate Mariel De Dios APRN, [facility] HEMATOLOGY ORDERA BLES Final Result Performing Organization Address [facility] de Phone Number [facility] [address] [place] [address], [place] [phone] * (ABNORMAL) IRON W/ IRON BINDING CAPACITY [place] (01/30/2024 12:19 PM FIELD SUPPORT ENGINEER) IRON 134 50 - 212 ug/dL [facility] UIBC 117(L) 155 - 355 ug/dL [facility] TIBC 251(L) 261 - 478 ug/dl [facility] % Saturation 53(H) 20 - 50 % [facility] 01/30/2024 12:1 9 PM FIELD SUPPORT ENGINEER [facility] - 01/30/2024 1:03 PM FIELD SUPPORT ENGINEER Release to patient->Immediate Mariel De Dios APRN, KAMILLA LAB SEND OUTS F inal Result Performing Organization Address City/[facility]/ZIP Co de Phone Number [facility] [address] [place] [address], [place] [phone] * FERRITIN (01/30/2024 12:19 PM FIELD SUPPORT ENGINEER) Ferritin 286 11 - 307 ng/mL [facility] Blood 01/30/2024 12:1 9 PM FIELD SUPPORT ENGINEER [facility] - 02/02/2024 2:56 PM FIELD SUPPORT ENGINEER Release to patient->Immediate Mariel De Dios CONTACT LENS MANUFACTURER, ELECTRONIC INTEGRATED SYSTEMS MECHANIC CHEMISTRY ORDERAB LES Final Result Performing Organization Address [facility] Co de Phone Number [facility] Cancer Care [address] [place] [address], [place] [phone] * FOLIC ACID (FOLATE) (01/30/2024 12:19 PM FIELD SUPPORT ENGINEER) Folate 7.80 >=5.90 ng/mL [facility] Blood 01/30/2024 12:1 9 PM FIELD SUPPORT ENGINEER Narrative [facility] - 02/02/2024 2:56 PM FIELD SUPPORT ENGINEER Release to patient->Immediate IS THE PATIENT REQUIRED TO BE FASTING FOR 12 HOURS?->No Mariel De Dios CONTACT LENS MANUFACTURER, ELECTRONIC INTEGRATED SYSTEMS MECHANIC CHEMISTRY ORDERAB LES Final Result Performing Organization Address [facility] Co de Phone Number [facility] [place] [address], [place] [phone] * VITAMIN B12 (01/30/2024 12:19 PM FIELD SUPPORT ENGINEER) Vitamin B12 >1,500 180 - 914 pg/mL [facility] Blood 01/30/2024 12:1 9 PM FIELD SUPPORT ENGINEER Narrative [facility] - 02/02/2024 2:56 PM FIELD SUPPORT ENGINEER Release to patient->Immediate Mariel De Dios CONTACT LENS MANUFACTURER, ELECTRONIC INTEGRATED SYSTEMS MECHANIC CHEMISTRY ORDERAB LES Final Result Performing Organization Address [facility] Co de Phone Number [facility] [place] [address], [place] [phone] * (ABNORMAL) LACTATE DEHYDROGENASE (LD) (01/30/2024 12:19 PM FIELD SUPPORT ENGINEER) LDH 94(L) 140 - 271 U/L [facility] Blood 01/30/2024 12:1 9 PM FIELD SUPPORT ENGINEER Narrative [facility] - 01/30/2024 1:03 PM FIELD SUPPORT ENGINEER Release to patient->Immediate Mariel De Dios APRN, ELECTRONIC INTEGRATED SYSTEMS MECHANIC CHEMISTRY ORDERAB LES Final Result [facility] [address] [place] [address], * (ABNORMAL) CMP (COMPREHENSIVE METABOLIC PANEL) (01/30/2024 12:19 PM FIELD SUPPORT ENGINEER) Glucose 97 70 - 105 mg/dL [facility] Blood Urea Nitrogen 13 7 - 25 mg/dL [facility] Creatinine 0.6 0.6 - 1.2 mg/dL [facility] Sodium 139 136 - 145 mEq/L [facility] Potassium 3.9 3.5 - 5.1 mEq/L [facility] Chloride 103 98 - 107 mEq/L [facility] Bicarbonate 25 21 - 31 mEq/L [facility] Total Bilirubin 0.8 0.3 - 1.0 mg/dL [facility] Alk. Phosphatase 36 34 - 104 U/L [facility] Aspartate Aminotransferase 12(L) 13 - 39 U/L [facility] Alanine Aminotransferase 10 7 - 52 U/L [facility] Total Protein 6.9 6.4 - 8.9 g/dL [facility] Albumin 4.4 3.5 - 5.7 g/dL [facility] Calcium 9.1 8.6 - 10.3 mg/dL [facility] Anion Gap 14.9 7.0 - 15.0 mEq/L [facility] Globulin 2.5 2.0 - 3.5 g/dL [facility] EGFR 119 >60 ml/min/1. 73m2 [facility] Comment: This eGFR is calculated using 2020 CKD-EPI Creatinine equation without race modifier based on the NKF-ASN task force recommendations Blood 01/30/2024 12:1 9 PM FIELD SUPPORT ENGINEER Narrative [facility] - 01/30/2024 1:03 PM FIELD SUPPORT ENGINEER Release to patient->Immediate IS THE PATIENT REQUIRED TO BE FASTING FOR 8 HOURS?->No Mariel De Dios CONTACT LENS MANUFACTURER, ELECTRONIC INTEGRATED SYSTEMS MECHANIC CHEMISTRY ORDERAB LES Final Result [facility] [place] [place] [address], * (ABNORMAL) COMPLETE BLOOD COUNT (CBC) WITH DIFF (01/30/2024 12:19 PM FIELD SUPPORT ENGINEER) WBC 8.5 4.0 - 10.0 10*3/uL [facility] HGB 10.6(L) 11.2 - 15.7 g/dL [facility] HCT 34.2 34.1 - 44.9 % [facility] PLT 232 163 - 369 10*3/uL [facility] MPV See below 9.4 - 12.4 fL [facility] Comment:Instrument unable to provide an accurate result RBC 4.87 3.93 - 5.22 10*6/uL [facility] MCV 70(L) 79 - 95 fL [facility] MCH 21.8(L) 25.6 - 32.2 pg [facility] MCHC 31.0(L) 32.2 - 36.5 g/dL [facility] RDW 18.6(H) 11.6 - 14.4 % [facility] Absolute Neutrophil Count 4,828 cells/uL [facility] Absolute Seg Count 4,828 1,440 - 6,600 cells/uL [facility] Absolute Lymph Count 3,134 760 - 4,000 cells/uL [facility] Absolute [place] Count 339 160 - 1,200 cells/uL [facility] Absolute Eos Count 85 0 - 300 cells/uL [facility] Absolute Baso Count 85 0 - 100 cells/uL [facility] Segmented Neutrophils 57 36 - 66 % [facility] Lymphocytes 37 19 - 40 % [facility] Monocytes 4 4 - 12 % [facility] Eosinophils 1 0 - 3 % [facility] Basophils 1 0 - 1 % [facility] WBC Estimate Normal [facility] Platelet Estimate Normal CA [facility] RBC Morphology Abnormal [facility] Microcytosis 1+ [facility] Hypochromasia 2+ [facility] Anisocytosis 1+ [facility] Poikilocytosis 1+ [facility] Target Cells 1+ [facility] Elliptocytes 1+ [facility] Blood 01/30/2024 12:1 9 PM FIELD SUPPORT ENGINEER Narrative [facility] - 01/30/2024 2:18 PM FIELD SUPPORT ENGINEER Release to patient->Immediate us Mariel De Dios CONTACT LENS MANUFACTURER, ELECTRONIC INTEGRATED SYSTEMS MECHANIC HEMATOLOGY ORDERA BLES Final Result Performing Organization Address City/State/[facility] Co de Phone Number [facility] [address] [place] [address], documented in this encounter Visit Diagnoses Diagnosis Ulcerative pancolitis without complication (HCC)- Primary BRCA positive Genetic susceptibility to malignant neoplasm of breast Ulcerative pancolitis without complication (HCC) BRCA positive Genetic susceptibility to malignant neoplasm of breast documented in this encounter Additional Health Concerns Assessment Noted Time PHQ-9 Depression Total Score: 1 07/18/19 21 8:20 AM CDT documented as of this encounter Care Teams Correctional Cook Relationship Specialty Start Date End Date Demar Campbell [address] [place] [address] PCP - General Family Medicine 07/20/20 12/11/23 documented as of this encounter
--- OUTSIDE RECORDS SUMMARY | 2024-03-19 00:54 | XMS_ITS | Encounter Summary ---
Author Organization [facility] Care Team Providers Care Management Consultant Name Role Phone Demar Campbell Primary Care Provider [phone] Encounter Details Date Type Department Care Team (Latest Contact Info) Description 01/14/2022 Travel Social History Tobacco Use Types Packs/Day Years Used Date Smoking Tobacco: Every Day Cigarettes Smokeless Tobacco: Never PHQ-2 Answer Date Recorded Total Score - Questions 1-9 1 05/2020 Sexually Active Control Partners Comments Yes Comments No Sex and Gender Information Value Date Recorded Sex Assigned at Not on file Legal Sex Female 10:31 AM BLUEPRINT DEVELOPER Gender Identity Not on file Sexual Orientation Not on file COVID-19 Exposure Response Date Recorded In the last 10 days, have yo u been in contact with someone who was confirmed or suspected to have Coronavirus/COVID-19? No / Unsure 01/14/2022 1:48 PM CDT documented as of this encounter Plan of Treatment Upcoming Encounters Date Type Department Care Team (Late st Contact Info) Description 04/05/2024 11:30 AM BLUEPRINT DEVELOPER Lab [facility] [address] [phone] Lab, [facility] 04/05/2024 11:45 AM BLUEPRINT DEVELOPER Office Visit [facility] [address] [phone] Dickson Tavarez MD [address] [place] [phone] documented as of this encounter Visit Diagnoses Not on filedocumented in this encounter Additional Health Concerns Assessment Noted Time PHQ-9 Depression Total Score: 1 07/18/19 21 8:20 AM CDT documented as of this encounter Care Teams Management Consultant Relationship Specialty Start Date End Date Demar Campbell [address] [place] [address] PCP - General Family Medicine 07/20/20 12/11/23 documented as of this encounter
--- OUTSIDE RECORDS SUMMARY | 2024-03-19 00:54 | XMS_ITS | Encounter Summary ---
Author Organization [facility] Address [address] [place] [address] Phone Care Team Providers Care Marine Oil Terminal Superintendent Name Role Phone Demar Campbell Primary Care Provider [phone] Demar Campbell Unavailable Celina Ng MD Unavailable Reason for Referral * Radiology Services (Routine) - Closed Specialty Diagnoses / Procedures Referred By Conthesham t Referred To Contact Radiology Diagnoses Ulcerative pancolitis without complication (HCC) BRCA positive Unintentional weight loss Procedures XR CHEST 2 VIEWS Dickson Tavarez MD [address] [place] [phone] Phone: tel: fax: Referral ID Status Reason Start Date Expiration Date Visits Re quested Visits Authorized [id number] Closed 12/12/2023 1 1 Reason for Visit * Reason Onset Date Comments Prior Authorization 12/12/2023 Ct chest den ial info Encounter Details Date Type Department Care Team (Late Contact Info) Description 12/12/2023 Telephone [facility] [address] [phone] Dickson Tavarez MD [address] [place] [phone] Prior Authorization (Ct chest denial info) Social History Tobacco Use Types Packs/Day Years Used Date Smoking Tobacco: Every Day Cigarettes Smokeless Tobacco: Never PHQ-2 Answer Date Recorded Total Score - Questions 1-9 1 05/2020 Sexually Active Control Partners Comments Yes Comments No Sex and Gender Information Value Date Recorded Sex Assigned at Not on file Legal Sex Female 10:31 AM INNERSOLE FITTER Gender Identity Not on file Sexual Orientation [...] Solomon CMA documented as of this encounter Miscellaneous Notes * Telephone Encounter - Floresita Chaney RN - 12/12/2023 11:39 AM CDT CXR orders placed. Please fax, thanks. Attempted to contact patient. MOHINDERM to return call to clinic. * Telephone Encounter - Floresita Chaney RN - 12/12/2023 11:37 AM CDT Images from the original note were not included. Dickson Tavarez MD Whittington, Melissa J.; Cc [facility]; Cc [facility]; Anna Marie Nava L1 hour ago (9:46 AM) MW Have her get cxr for now * Telephone Encounter - Arielle Acevedo - 12/12/2023 10:[address] order changed to just abdomen pelvis w. Nursing please place CXR order * Telephone Encounter - Stefanie Boucher - 12/12/2023 8:[address] a/p approved but ct chest denied by [facility] medical coder. Do you want to proceed w/ct a/p only or do peer to peer for ct chest? Reason given for ct chest denial: [employer] Clinical Guideline 020 for Chest (Thorax) CT was used to make this decision. This decision was based on the notes that were sent: you have been losing weight. Before we can approve, we need the following notes: doctor's notes that say you had some weight loss (5% or more) in less than twelve months without trying and no belly complaints. We need notes showing that you have completed a chest x-ray, cancer screening tests for someone of your age (suchas mammogram and scope tests) and blood tests (such as CBC (Complete Blood Count), CMP (Comprehensive Metabolic Panel), HbA1C (Hemoglobin A1C), TSH (Thyroid Stimulating Hormone) and other tests) and that the results of these tests do not explain your weight loss. We also need an additional follow-up doctor's note showing that you are continuing to lose weight. These were not given to us. documented in this encounter Plan of Treatment Upcoming Encounters Date Type Department Care Team (Late st Contact Info) Description 04/05/2024 11:30 AM INNERSOLE FITTER Lab [facility] [address] [phone] Lab, Cc [facility] 04/05/2024 11:45 AM INNERSOLE FITTER Office Visit [facility] [address] [phone] Dickson Tavarez MD [address] [place] [phone] Scheduled Orders Name Type Priority Associated Diagnoses Orde r Schedule XR CHEST 2 VIEWS Imaging Routine Ulcerative pancolitis without complication (HCC) BRCA positive Unintentional weight loss Expected: 12/12/2023, Expires: 01/11/2024 documented as of this encounter Visit Diagnoses Diagnosis Ulcerative pancolitis without complication (HCC)- Primary BRCA positive Genetic susceptibility to malignant neoplasm of breast Unintentional weight loss Loss of weight documented in this encounter Additional Health Concerns Assessment Noted Time PHQ-9 Depression Total Score: 1 07/18/19 21 8:20 AM CDT documented as of this encounter Care Teams Marine [employer] Superintendent Relationship Specialty Start Date End Date Demar Campbell [address] [place] [address] PCP - General Family Medicine 12/12/23 Demar Campbell [address] [address] Family Medicine 12/12/23 Celina Ng MD [address] [place] [address] Consulting Physician Oncology 12/12/23 documented as of this encounter
--- OUTSIDE RECORDS SUMMARY | 2024-03-19 00:54 | XMS_ITS | Encounter Summary ---
Author Organization [facility] Address [address] [place] [address] Phone Care Team Providers Care Forensic Specialist Name Role Phone Demar Campbell Primary Care Provider [phone] Demar Campbell Primary Care Provider [phone] Demar Campbell Unavailable Celina Ng MD Unavailable Encounter Details Date Type Department Care Team (Late st Contact Info) Description 11/12/2021 Telephone [facility] [address] [place] [address] Dickson Tavarez MD [address] [place] [phone] Social History Tobacco Use Types Packs/Day Years Used Date Smoking Tobacco: Every Day Cigarettes Smokeless Tobacco: Never PHQ-2 Answer Date Recorded Total Score - Questions 1-9 1 05/2020 Sexually Active Control Partners Comments Yes Comments No Sex and Gender Information Value Date Recorded Sex Assigned at Not on file Legal Sex Female 10:31 AM DIRECTOR BIOLOGY Gender Identity Not on file Sexual Orientation Not on file documented as of this encounter Miscellaneous Notes * Telephone Encounter - Mariel Duarte - 11/12/2021 10:08 AM CDT LVM FOR PT TO CALL CLINIC TO RESCHEDULE HER OFFICE VIST. SENDING MISSED OFFICE LETTER. documented in this encounter Plan of Treatment Upcoming Encounters Date Type Department Care Team (Late st Contact Info) Description 04/05/2024 11:30 AM DIRECTOR BIOLOGY Lab [facility] [address] [phone] Lab, Cc [facility] 04/05/2024 11:45 AM DIRECTOR BIOLOGY Office Visit [facility] [address] [phone] Dickson Tavarez MD [address] [place] [phone] documented as of this encounter Visit Diagnoses Not on filedocumented in this encounter Additional Health Concerns Assessment Noted Time PHQ-9 Depression Total Score: 1 07/18/19 21 8:20 AM CDT documented as of this encounter Care Teams Forensic Specialist Relationship Specialty Start Date End Date Demar Campbell [address] [place] [address] PCP - General Family Medicine 07/20/20 12/11/23 Dmear Campbell [address] [place] [address] PCP - General Family Medicine 12/12/23 Demar Campbell [address] [place] [address] Family Medicine 12/12/23 Celina Ng MD [address] [place] [phone] Consulting Physician Oncology 12/12/23 documented as of this encounter
--- OUTSIDE RECORDS SUMMARY | 2024-03-19 00:54 | XMS_ITS | Encounter Summary ---
Author Organization [facility] Address [address] [place] [address] Phone Care Team Providers Care Field Staff Manager Name Role Phone Demar Campbell Primary Care Provider [phone] Encounter Details Date Type Department Care Team (Late st Contact Info) Description 01/24/2023 9:05 AM FILLER MIXER Lab [facility] [address] [phone] Lab, Cc [facility] Ulcerative pancolitis without complication (HCC); BRCA positive Social History Tobacco Use Types Packs/Day Years Used Date Smoking Tobacco: Every Day Cigarettes Smokeless Tobacco: Never PHQ-2 Answer Date Recorded Total Score - Questions 1-9 1 05/2020 Sexually Active Control Partners Comments Yes Comments No Sex and Gender Information Value Date Recorded Sex Assigned at Not on file Legal Sex Female 10:31 AM FILLER MIXER Gender Identity Not on file Sexual Orientation Not on file COVID-19 Exposure Response Date Recorded In the last 10 days, have yo u been in contact with someone who was confirmed or suspected to have Coronavirus/COVID-19? No / Unsure 01/24/2023 9:27 AM FILLER MIXER documented as of this encounter Functional Status [...] Questionnaire -2 Score 0 01/24/2023 9:44 AM FILLER MIXER Shilpa Shanks LPN documented as of this encounter Plan of Treatment Upcoming Encounters Date Type Department Care Team (Late st Contact Info) Description 04/05/2024 11:30 AM FILLER MIXER Lab [facility] [address] [phone] Lab, Cc [facility] 04/05/2024 11:45 AM FILLER MIXER Office Visit [facility] [address] [phone] Dickson Tavarez MD [address] [place] [phone] documented as of this encounter Procedures Procedure Name Priority Date/Time Associated Diagnosis Comments IRON W/ IRON BINDING CAPACITY [place] Routine 01/24/2023 9:36 AM FILLER MIXER Ulcerative pancolitis without complication (HCC) BRCA positive CBC WITH AUTO DIFF [place] Routine 01/24/2023 9:36 AM FILLER MIXER VITAMIN B12 Routine 01/24/2023 9:36 AM FILLER MIXER Ulcerative pancolitis without complication (HCC) BRCA positive RETICULOCYTE COUNT (RETIC) Routine 01/24/2023 9:36 AM FILLER MIXER Ulcerative pancolitis without complication (HCC) BRCA positive LACTATE DEHYDROGENASE (LD) Routine 01/24/2023 9:36 AM FILLER MIXER Ulcerative pancolitis without complication (HCC) BRCA positive HAPTOGLOBIN Routine 01/24/2023 9:36 AM FILLER MIXER Ulcerative pancolitis without complication (HCC) BRCA positive FOLIC ACID (FOLATE) Routine 01/24/2023 9 :36 AM FILLER MIXER Ulcerative pancolitis without complication (HCC) BRCA positive FERRITIN Routine 01/24/2023 9:36 AM FILLER MIXER Ulcerative pancolitis without complication (HCC) BRCA positive CMP (COMPREHENSIVE METABOLIC PANEL) Routine 01/24/2023 9:36 AM FILLER MIXER Ulcerative pancolitis without complication (HCC) BRCA positive documented in this encounter Results * (ABNORMAL) CBC WITH AUTO DIFF [place] (01/24/2023 9:36 AM FILLER MIXER) WBC 9.2 4.0 - 10.0 10*3/uL CANCER CHIEF CONSTRUCTION INSPECTOR [facility] HGB 10.6(L) 11.2 - 15.7 g/dL CANCER CHIEF CONSTRUCTION INSPECTOR [facility] HCT 33.6(L) 34.1 - 44.9 % CANCER CHIEF CONSTRUCTION INSPECTOR [facility] PLT 203 163 - 369 10*3/uL [facility] MPV See below 9.4 - 12.4 fL CANCER CHIEF CONSTRUCTION INSPECTOR [facility] Comment:Instrument unable to provide an accurate result RBC 4.60 3.93 - 5.22 10*6/uL CANCER CHIEF CONSTRUCTION INSPECTOR [facility] MCV 73(L) 79 - 95 fL CANCER CHIEF CONSTRUCTION INSPECTOR [facility] MCH 23.0(L) 25.6 - 32.2 pg CANCER CHIEF CONSTRUCTION INSPECTOR [facility] MCHC 31.5(L) 32.2 - 36.5 g/dL CANCER CHIEF CONSTRUCTION INSPECTOR [facility] RDW 19.9(H) 11.6 - 14.4 % CANCER CHIEF CONSTRUCTION INSPECTOR [facility] Neutrophils % 60.1 36.0 - 66.0 % CANCER CHIEF CONSTRUCTION INSPECTOR [facility] Lymphocytes % 29.0 19.0 - 40.0 % CANCER CHIEF CONSTRUCTION INSPECTOR [facility] Monocytes % 6.8 4.1 - 12.1 % CANCER CHIEF CONSTRUCTION INSPECTOR [facility] Eosinophils % 2.3 0.0 - 3.5 % CANCER CHIEF CONSTRUCTION INSPECTOR [facility] Basophils % 0.5 0.0 - 1.0 % CANCER CHIEF CONSTRUCTION INSPECTOR [facility] Absolute Neutrophils 5.5 1.4 - 6.6 10*3/uL CANCER CHIEF CONSTRUCTION INSPECTOR [facility] Absolute Lymphocytes 2.7 0.8 - 4.0 10*3/uL CANCER CHIEF CONSTRUCTION INSPECTOR [facility] Absolute Monocytes 0.6 0.2 - 1.2 10*3/uL CANCER CHIEF CONSTRUCTION INSPECTOR [facility] Absolute Eosinophils 0.2 0.0 - 0.4 10*3/uL CANCER CHIEF CONSTRUCTION INSPECTOR [facility] Absolute Basophils 0.1 0.0 - 0.1 10*3/uL CANCER CHIEF CONSTRUCTION INSPECTOR [facility] WBC Estimate Normal CANCER CHIEF CONSTRUCTION INSPECTOR [facility] Platelet Estimate Normal CA NCER CHIEF CONSTRUCTION INSPECTOR [facility] RBC Morphology Abnormal CANCE R CHIEF CONSTRUCTION INSPECTOR [facility] Microcytosis 1+ CANCER CHIEF CONSTRUCTION INSPECTOR OF [facility] Hypochromasia 1+ CANCER CHIEF CONSTRUCTION INSPECTOR [facility] Anisocytosis 2+ CANCER CHIEF CONSTRUCTION INSPECTOR [facility] Poikilocytosis 1+ CANCE R CHIEF CONSTRUCTION INSPECTOR [facility] Teardrop Cells 1+ CANCE R CHIEF CONSTRUCTION INSPECTOR [facility] Target Cells 1+ CANCER CHIEF CONSTRUCTION INSPECTOR [facility] 01/24/2023 9:36 AM FILLER MIXER Dickson Tavarez MD LAB SEND OUTS Final Resul t CANCER CHIEF CONSTRUCTION INSPECTOR [facility] [place] [address], * (ABNORMAL) CMP (COMPREHENSIVE METABOLIC PANEL) (01/24/2023 9:36 AM FILLER MIXER) Glucose 101 70 - 105 mg/dL [facility] CHIEF CONSTRUCTION INSPECTOR [facility] Blood Urea Nitrogen 13 7 - 25 mg/dL [facility] CHIEF CONSTRUCTION [facility] Creatinine 0.6 0.6 - 1.2 mg/dL [facility] Sodium 139 136 - 145 mEq/L [facility] Potassium 4.2 3.5 - 5.1 mEq/L [facility] Chloride 107 98 - 107 mEq/L [facility] CHIEF CONSTRUCTION [facility]OR[facility] Bicarbonate 26 21 - 31 mEq/L [facility] CHIEF CONSTRUCTION INSPECTOR [facility] Total Bilirubin 0.8 0.3 - 1.0 mg/dL [facility] CHIEF CONSTRUCTION INSPECTOR [facility] Alk. Phosphatase 34 34 - 104 U/L [facility] CHIEF CONSTRUCTION INSPECTOR [facility] Aspartate Aminotransferase 11(L) 13 - 39 U/L [facility] CHIEF CONSTRUCTION INSPECTOR [facility] Alanine Aminotransferase 10 7 - 52 U/L [facility] CHIEF CONSTRUCTION INSPECTOR [facility] Total Protein 6.5 6.4 - 8.9 g/dL [facility] CHIEF CONSTRUCTION INSPECTOR [facility] Albumin 4.1 3.5 - 5.7 g/dL [facility] CHIEF CONSTRUCTION INSPECTOR [facility] Calcium 8.8 8.6 - 10.3 mg/dL CANCER CHIEF CONSTRUCTION INSPECTOR [facility] Anion Gap 10.2 7.0 - 15.0 mEq/L CANCER CHIEF CONSTRUCTION INSPECTOR [facility] Globulin 2.4 2.0 - 3.5 g/dL CANCER CHIEF CONSTRUCTION INSPECTOR [facility] EGFR 120 >60 ml/min/1. 73m2 CANCER CHIEF CONSTRUCTION INSPECTOR [facility] Comment: This eGFR is calculated using 2020 CKD-EPI Creatinine equation without race modifier based on the NKF-ASN task force recommendations Blood 01/24/2023 9:36 AM FILLER MIXER Narrative CANCER CHIEF CONSTRUCTION INSPECTOR [facility] - 01/24/2023 10:30 AM FILLER MIXER IS THE PATIENT REQUIRED TO BE FASTING FOR 8 HOURS?->No Release to patient->Immediate us Dickson Tavarez MD CHEMISTRY ORDERABLES Final Result Performing Organization Address [facility] Co de Phone Number CANCER CHIEF CONSTRUCTION INSPECTOR [facility] [place] [address], [place] [phone] * (ABNORMAL) LACTATE DEHYDROGENASE (LD) (01/24/2023 9:36 AM FILLER MIXER) LDH 110(L) 140 - 271 U/L [facility] Blood 01/24/2023 9:36 AM FILLER MIXER Janie [facility]IEF [facility] - 01/24/2023 10:30 AM FILLER MIXER Release to patient->Immediate us Dickson Tavarez MD CHEMISTRY ORDERABLES Final Result Performing Organization Address City/[facility] Co de Phone Number CANCER CHIEF CONSTRUCTION INSPECTOR [facility] [place] [address], [place] [phone] * VITAMIN B12 (01/24/2023 9:36 AM FILLER MIXER) Vitamin B12 445 180 - 914 pg/mL CANCER CHIEF CONSTRUCTION INSPECTOR [facility] Blood 01/24/2023 9:36 AM FILLER MIXER Janie [facility]IEF [facility] - 01/24/2023 2:25 PM FILLER MIXER Release to patient->Immediate us Dickson Tavarez MD CHEMISTRY ORDERABLES Final Result Performing Organization Address [facility] de Phone Number CANCER CHIEF CONSTRUCTION INSPECTOR [facility] [place] [address] [place] [address], [place] [phone] * FOLIC ACID (FOLATE) (01/24/2023 9:36 AM FILLER MIXER) Folate 10.26 >=5.90 ng/mL [facility]IEF [facility] Blood 01/24/2023 9:36 AM FILLER MIXER Narrative [facility] CHIEF CONSTRUCTION [facility] - 01/24/2023 2:25 PM FILLER MIXER IS THE PATIENT REQUIRED TO BE FASTING FOR 12 HOURS?->No Release to patient->Immediate us Dickson Tavarez MD CHEMISTRY ORDERABLES Final Result Performing Organization Address [facility] de Phone Number CANCER CHIEF CONSTRUCTION INSPECTOR [facility] [address] [place] [address], [place] [phone] * FERRITIN (01/24/2023 9:36 AM FILLER MIXER) Ferritin 267 11 - 307 ng/mL [facility] CHIEF CON[facility]CTION [facility] Blood 01/24/2023 9:36 AM FILLER MIXER Narrative [facility] CHIEF CONSTRUCTION [facility] - 01/24/2023 2:25 PM FILLER MIXER Release to patient->Immediate us Dickson Tavarez MD CHEMISTRY ORDERABLES Final Result Performing Organization Address [facility] Co de Phone Number CANCER CHIEF CONSTRUCTION [facility] [address] [address] [place] [address], [place] [phone] * (ABNORMAL) IRON W/ IRON BINDING CAPACITY [place] (01/24/2023 9:36 AM FILLER MIXER) IRON 101 50 - 212 ug/dL [facility] CHIEF CONSTRUCTION [facility] UIBC 130(L) 155 - 355 ug/dL CANCER CHIEF CONSTRUCTION INSPECTOR [facility] TIBC 231(L) 261 - 478 ug/dl [facility]IEF CON[facility] % Saturation 44 20 - 50 % CANCER CHIEF CONSTRUCTION INSPECTOR [facility] [place] 01/24/2023 9:36 AM FILLER MIXER Narrative [facility]ER [facility]IEF [facility] - 01/24/2023 10:30 AM FILLER MIXER Release to patient->Immediate us Dickson Tavarez MD LAB SEND OUTS Final Resul t Performing Organization Address [facility] Co de Phone Number CANCER CHIEF CONSTRUCTION [facility] [address] [place] [address], * (ABNORMAL) RETICULOCYTE COUNT (RETIC) (01/24/2023 9:36 AM FILLER MIXER) Reticulocyte count 2.44(H) 0.50 - 1.70 % [facility] CHIEF CONSTRUCTION [facility] RET-He 21.20(L) 28.20 - 36.60 pg [facility] CHIEF CONSTRUCTION [facility] Comment: RET-He is a direct assessment of incorporation of iron into erythrocyte hemoglobin. It provides an indirect measure of the iron available for new erythropoiesis over past 2-4 days. Blood 01/24/2023 9:36 AM FILLER MIXER Narrative [facility] - 01/24/2023 10:30 AM FILLER MIXER Release to patient->Immediate us Dickson Tavarez MD HEMATOLOGY ORDERABLES Final Result Performing Organization Address [facility] de Phone Number [facility] CHIEF CONSTRUCTION [facility] [address] [place] [address], * HAPTOGLOBIN (01/24/2023 9:36 AM FILLER MIXER) HAPTO 98 30 - 200 mg/dL [facility] CHIEF CONSTRUCTION [facility] Blood 01/24/2023 9:36 AM FILLER MIXER Janie [facility] - 01/24/2023 1:54 PM FILLER MIXER Release to patient->Immediate us Dickson Tavarez MD CHEMISTRY ORDERABLES Final Result Performing Organization Address [facility] Co de Phone Number CANCER CHIEF CONSTRUCTION INSPECTOR [facility] [address] [place] [address], documented in this encounter Visit Diagnoses Diagnosis Ulcerative pancolitis without complication (HCC) BRCA positive Genetic susceptibility to malignant neoplasm of breast documented in this encounter Additional Health Concerns Assessment Noted Time PHQ-9 Depression Total Score: 1 07/18/19 21 8:20 AM CDT documented as of this encounter Care Teams Field Staff Manager Relationship Specialty Start Date End Date Demar Campbell [address] [place] [address] PCP - General Family Medicine 07/20/20 12/11/23 documented as of this encounter
--- OUTSIDE RECORDS SUMMARY | 2024-03-19 00:54 | XMS_ITS | Encounter Summary ---
Author Organization [facility] Address [address] [place] [address] Phone Care Team Providers Care Electrical Products Sales Engineer Name Role Phone Demar Campbell Primary Care Provider [phone] Demar Campbell Unavailable Celina Ng MD Unavailable Reason for Referral * Consult, Test & Initiate Treatment (Routine) - Closed Specialty Diagnoses / Procedures Referred By Vj t Referred To Contact General Surgery Diagnoses Ulcerative pancolitis without complication (HCC) Dickson Tavarez MD [address] [place] [phone] Phone: tel: fax: [facility] DEPARTMENT OF GASTROENEROLOGY AND HEPATOLOGY [address] [place] [phone] Phone: tel: fax: Referral ID Status Reason Start Date Expiration Date Visits Re quested Visits Authorized [id number] Closed 12/15/2023 1 1 Reason for Visit * Reason Comments Follow-up Encounter Details Date Type Department Care Team (Latest Contact Info) Description 12/15/2023 10:45 AM CDT Office Visit [facility] [address] [address] Dickson Tavarez MD [address] [place] [address] Ulcerative pancolitis without complication (HCC) (Primary [...] on file Legal Sex Female 10:31 AM RESIDENTIAL GLAZIER Gender Identity Not on file Sexual Orientation Not on file documented as of this encounter Last Filed Vital Signs Vital Sign Reading Time Taken Comments Blood Pressure 106/68 12/15/2023 10:41 AM CDT Pulse 70 12/15/2023 10:41 AM CDT Temperature 36.7 ??C (98 ??F) 12/15/2023 10:41 AM CDT Respiratory Rate 18 12/15/2023 10:41 AM CDT Oxygen Saturation 98% 12/15/2023 10:41 AM CDT Inhaled Oxygen Concentration - - Weight 79.5 kg (175 lb 3.2 oz) 12/15/2023 10:41 AM CDT Height 165.1 cm (5' 5 ) 12/15/2023 10:41 AM CDT Body Mass Index 29.15 12/15/2023 10:41 AM CDT documented in this encounter Functional [...] Progress Notes * Dickson Tavarez MD - 12/15/2023 10:45 AM CDT Images from the original note were not included. Patient: Tessy Medina Age: 38 y.o. : 1985 Encounter Dept: [facility] Encounter Date: 12/15/2023 Care Team: Current Providers PCP: Demar Campbell [...] acid deficiency. 4. Ulcerative colitis. PLAN: 1. We did CT scan to rule out malignancy. She may have hepatic fibrosis, varices, and splenomegaly.Sending her back to Liver. Check her hemoglobin electrophoresis again. She had thalassemia trait, unsure if that is all she has. Check hereditary hemochromatosis. I think it is unlikely as her ferritin has not been more than 300. We will make sure she is getting in to see them promptly. Will need full workup with GI, Liver to ensure no autoimmune hepatology. PARADA could be a diagnosis. She has notreceived any transfusion so iron overload along with thalassemia is unlikely. TIME SPENT: REVIEW OF SYSTEMS: See HPI; [...] as per Care Everywhere. Dickson Tavarez MD, [facility] [place]: Vitals: 12/15/23 1041 BP: 106/68 BP Location: Left Arm BP Position: Sitting BP Cuff Size: Regular Pulse: 70 Resp: 18 Temp: 98 ??F (36.7 ??C) TempSrc: Temporal SpO2: 98% Weight: 175 lb 3.2 oz (79.5 kg) Height: 5' 5 (1.651 m) Body surface area is 1.91 meters squared. Body mass index is 29.15 kg/m??. Pain Score: 0 - No pain [...] Current Medications: Outpatient Encounter Medications as of 12/15/2023 Medication Sig Dispense Refill albuterol 108 (90 Base) MCG/ACT Aerosol Solution INHALE 1 PUFF BY MOUTH EVERY 4 TO 6 HOURS NEEDED azithromycin (ZITHROMAX) 250 MG Tablet (Patient not [...] daily. (Patient not taking: Reported on 12/08/2023) [] iohexol (OMNIPAQUE) SOLN 100 mL No facility-administered encounter medications on file as of 12/15/2023. Labs: No visits with results within 7 Day(s) from this visit. Latest known visit with results is: Lab on 12/08/2023 Component Date Value Ref Range Status Urine Test 12/08/2023 Negative Negative Final Urine Specific Reading 12/08/2023 1.025 =/>1.010 Final Urine Color 12/08/2023 Light Yellow Straw-Yellow Final Urine Clarity 12/08/2023 Clear Clear Final Urine Glucose 12/08/2023 NEG NEG mg/dL Final Urine Bilirubin 12/08/2023 NEG NEG mg/dL Final Urine Ketones 12/08/2023 NEG NEG mg/dL Final Urine Specific Reading 12/08/2023 1.025 1.015 - 1.020 Final Urine Blood 12/08/2023 Trace (A) NEG mg/L Final Urine pH 12/08/2023 5.5 5.0 - 8.0 [pH] Final Urine Protein 12/08/2023 NEG NEG mg/dL Final Urine Urobilinogen 12/08/2023 0.2 0.2 - 1.0 mg/dL Final Urine Nitrite 12/08/2023 NEG NEG Final Urine Leukocytes 12/08/2023 NEG NEG Final Urine Epithelial Cells 12/08/2023 None None,Rare,Few /LPF Final Urine Mucus 12/08/2023 None None /LPF Final Urine Cast 12/08/2023 None None /LPF Final Urine Bacteria 12/08/2023 None None /HPF Final Urine Crystal 12/08/2023 None None /LPF Final Urine White Blood Cells 12/08/2023 0-4 0 - 4 /HPF Final Urine Red Blood Cells 12/08/2023 3-5 (A) 0 - 2 /HPF Final documented in this encounter Plan of Treatment Upcoming Encounters Date Type Department Care Team (Late st Contact Info) Description 04/05/2024 11:30 AM RESIDENTIAL GLAZIER Lab [facility] [address] [phone] Lab, Cc [facility] 04/05/2024 11:45 AM RESIDENTIAL GLAZIER Office Visit [facility] [address] [phone] Dickson Tavarez MD [address] [place] [phone] Scheduled Referrals Name Type Priority Associated Diagnoses Order Schedule EXTERNAL GASTROENTEROLOGY REFERRAL HST Outpatient Referral Routine Ulcerative pancolitis without complication (HCC) Expected: 12/15/2023, Expires: 06/13/2025 documented as of this encounter Procedures Procedure Name Priority Date/Time Associated Diagnosis Comments ANCA (VASCULITIS) [place], [place] [id number] Routine 12/15/2023 12:13 PM CDT Ulcerative pancolitis without complication (HCC) documented in this encounter Results * FERRITIN (12/15/2023 12:13 PM CDT) Ferritin 239 11 - 307 ng/mL [facility] Blood 12/15/2023 12:1 3 PM CDT Narrative [facility] - 12/16/2023 2:58 PM CDT Release to patient->Immediate Dickson Tavarez MD CHEMISTRY ORDERABLES Final Result [facility] [address] [place] [address], * HERED.HEMOCHROMATOSIS, DNA [place] [id number] (12/15/2023 12:13 PM CDT) HEREDITARY HEMOCHROMATOSIS COMMENT [facility] Comment: RESULT: C.845G>A (P.[id number]) - NOT DETECTED C.187C>G (P.[id number]) - NOT DETECTED C.193A>T (P.[id number]) - NOT DETECTED NOT ASSOCIATED WITH INCREASED [...] FOR PATIENTS WHO ARE HOMOZYGOUS FOR C.845G>A (P.[id number]) AND HAVE YET TO EXPERIENCE CLINICAL SYMPTOMS. COMMENTS: THE MOST COMMON HFE VARIANTS ASSOCIATED WITH HEREDITARY HEMOCHROMATOSIS ARE C.845G>A (P.[id number]), C.187C>G (P.[id number]), C.193A>T (P.[id number]). WHILE PATIENTS HOMOZYGOUS FOR C.845G>A (P.[id number]) ARE THE MOST LIKELY TO PRESENT CLINICAL SYMPTOMS, LESS THAN 10% DEVELOP CLINICALLY SIGNIFICANT IRON OVERLOAD WITH TISSUE AND ORGAN DAMAGE. GENETIC COUNSELING IS RECOMMENDED TO DISCUSS THE POTENTIAL CLINICAL IMPLICATIONS OF POSITIVE RESULTS, WELL RECOMMENDATIONS FOR TESTING FAMILY MEMBERS. GENETIC COORDINATORS ARE AVAILABLE FOR HEALTH CARE PROVIDERS TO DISCUSS RESULTS AT [phone] ([phone]). TEST DETAILS: THREE VARIANTS ANALYZED: C.845G>A (P.[id number]), COMMONLY REFERRED TO C282Y C.187C>G (P.[id number]), COMMONLY REFERRED TO H63D C.193A>T (P.[id number]), COMMONLY REFERRED TO S65C METHODS/LIMITATIONS: DNA ANALYSIS [...] DEVELOPED AND ITS PERFORMANCE CHARACTERISTICS DETERMINED BY [facility]. IT HAS NOT BEEN CLEARED OR APPROVED BY THE FOOD AND DRUG ADMINISTRATION. REFERENCES: EB BR, JACE PC, NOY KV, KRISTA LW, HAI ; [employer]IVER [employer]EASES. DIAGNOSIS AND MANAGEMENT OF HEMOCHROMATOSIS: 2011 PRACTICE GUIDELINE BY THE [place] THE [employer]Y [employer] LIVER DISEASES. HEPATOLOGY. 2011 KINGS;54(1):328-43. DOI: 10.1002/HEP.29578. PMID: 18047626; PMCID: [id number]. NUNU G, ASHWIN P, NANCY YAO, DENISE H, NICKOLAS O, JOANNE S, CAROLYN I, WILDA M, JOHNY Turner. EMQN BEST PRACTICE GUIDELINES FOR THE MOLECULAR GENETIC DIAGNOSIS OF HEREDITARY HEMOCHROMATOSIS (HH). EUR J HUM ROBERT. 2016 JUN;24(4):479-95. DOI: 10.1038/EJHG.2015.128. EPUB 2014SEP 21. PMID: [id number]; PMCID: [id number]. REVIEWED BY, [place] 911127 COMMENT [facility] Comment: TECHNICAL COMPONENT PERFORMED AT [facility] PROFESSIONAL COMPONENT PERFORMED BY: [employer] MATTHEW DOUGLAS, PH.D., FACMG DIRECTOR, MOLECULAR GENETICS [address] [place] [address] [place] [address] 12/15/2023 12:1 3 PM CDT Narrative [facility] - 12/29/2023 7:36 AM CDT TESTING PERFORMED AT: [TG] [facility], [facility], [place], [address], PHONE: [phone], PROCESS DEVELOPMENT ASSOCIATE: [facility] Release to patient->Immediate us Dickson Tavarez MD LAB SEND OUTS Final Resul t CANCER INSPECTOR WEIGHTS AND MEASURES [facility] [place] [address], * ANCA (VASCULITIS) [place], [place] [id number] (12/15/2023 12:13 PM CDT) ANTI-MPO ANTIBODIES <0.2 0.0 - 0.9 UNITS [facility] ANTI-PR3 ANTIBODIES <0.2 0.0 - 0.9 UNITS [facility] CYTOPLASMIC (C-ANCA) <1:20 NEG:<1:20 TITER [facility] PERINUCLEAR (P-ANCA) <1:20 NEG:<1:20 TITER [facility] Comment: THE PRESENCE OF POSITIVE FLUORESCENCE EXHIBITING P-ANCA OR C-ANCA PATTERNS ALONE IS NOT SPECIFIC FOR THE DIAGNOSIS OF TALISHA'S GRANULOMATOSIS (WG) OR MICROSCOPIC POLYANGIITIS. DECISIONS ABOUT TREATMENT SHOULD NOT BE BASED SOLELY ON ANCA IFA RESULTS. ??THE INTERNATIONAL ANCA GROUP CONSENSUS RECOMMENDS FOLLOW UP TESTING OF POSITIVE SERA WITH BOTH OR- 3 AND MPO-ANCA ENZYME IMMUNOASSAYS. MANY 5% SERUM SAMPLES ARE POSITIVE ONLY BY EIA. REF. AM J CLIN PATHOL 1999;111:507-513. ATYPICAL PANCA <1:20 NEG:<1:20 TITER [facility] Comment: THE ATYPICAL PANCA PATTERN HAS BEEN OBSERVED IN A SIGNIFICANT PERCENTAGE OF PATIENTS WITH ULCERATIVE COLITIS, PRIMARY SCLEROSING CHOLANGITIS AND AUTOIMMUNE HEPATITIS. 12/15/2023 12:1 3 PM CDT Narrative [facility] - 12/17/2023 8:18 PM CDT TESTING PERFORMED AT: [BN] [facility] [address], [address], PHONE: [phone], PROCESS DEVELOPMENT ASSOCIATE: ZULEIMA STEVENS MD TESTING PERFORMED AT: [CB] [facility] [place] [place], [address] [place] [address], [address], PHONE: [phone], PROCESS DEVELOPMENT ASSOCIATE: KELVIN GOULD, PHD Release to patient->Immediate Dickson Tavarez MD LAB SEND OUTS Final Resul t [facility] [place] [address], * (ABNORMAL) HEMOGLOBINOPATHY [place] [id number] (12/15/2023 12:13 PM CDT) HEMOGLOBIN F 8.1(H) 0.0 - 2.0 % [facility] HEMOGLOBIN A 87.3(L) 96.4 - 98.8 % [facility] HEMOGLOBIN A2 4.6(H) 1.8 - 3.2 % [facility] HEMOGLOBIN S 0.0 0.0 % CANCER INSPECTOR WEIGHTS AND MEASURES [facility] HEMOGLOBIN PATTERN COMMENT [facility] Comment: HEMOGLOBIN PATTERN AND CONCENTRATIONS ARE CONSISTENT WITH BETA-THALASSEMIA MINOR. SUGGEST HEMATOLOGIC AND CLINICAL CORRELATION. HEMOGLOBIN PATTERN AND CONCENTRATIONS REVEAL AN ELEVATION OF HGB F WHICH MAY INDICATE THE PRESENCE OF A HEREDITARY PERSISTENCE GENE. HOWEVER, ELEVATIONS OF HGB F HAVE ALSO BEEN REPORTED TO OCCUR WITH CERTAIN ANEMIAS, , PORPHYRIAS, AND SOME MALIGNANCIES. 12/15/2023 12:1 3 PM CDT Narrative CANCER INSPECTOR WEIGHTS AND MEASURES [facility] - 12/16/2023 1:10 PM CDT TESTING PERFORMED AT: [] [facility], [address] [place] [address], [place], [address], PHONE: [phone], PROCESS DEVELOPMENT ASSOCIATE: KELVIN GOULD, PHD Release to patient->Immediate us Dickson Tavarez MD LAB SEND OUTS Final Resul t CANCER INSPECTOR WEIGHTS AND MEASURES [facility] [address] [place] [address], documented in this encounter Visit Diagnoses Diagnosis Ulcerative pancolitis without complication (HCC)- Primary Ulcerative pancolitis without complication (HCC) documented in this encounter Additional Health Concerns Assessment Noted Time PHQ-9 Depression Total Score: 1 07/18/19 21 8:20 AM CDT documented as of this encounter Care Teams Electrical Products Sales Engineer Relationship Specialty Start Date End Date Demar Campbell [address] [place] [address] PCP - General Family Medicine 12/12/23 Demar Campbell [address] [place] [address] Family Medicine 12/12/23 Celina Ng MD [address] [place] [address] Consulting Physician Oncology 12/12/23 documented as of this encounter
--- OUTSIDE RECORDS SUMMARY | 2024-03-19 00:54 | XMS_ITS | Encounter Summary ---
Author Organization [facility] Address [address] [place] [address] Phone Care Team Providers Care Municipal Court Judge Name Role Phone Demar Campbell Primary Care Provider [phone] Demar Campbell Unavailable Celina Ng MD Unavailable Reason for Visit * Radiology Services (Routine) - Closed Specialty Diagnoses / Procedures Referred By Contac t Referred To Contact Radiology Diagnoses Ulcerative pancolitis without complication (HCC) BRCA positive Unintentional weight loss Procedures CT ABDOMEN PELVIS W/ CONTRAST CT CHEST ABDOMEN AND PELVIS W CONTRAST Dickson Tavarez MD [address] [place] [phone] Phone: tel: fax: Referral ID Status Reason Start Date Expiration Date Visits Re quested Visits Authorized [id number] Closed 12/08/2023 1 1 Encounter Details Date Type Department Care Team (Latest Contact Info) Description 12/15/2023 10:00 AM CDT Ancillary Procedure [facility] [address] [phone] Ulcerative pancolitis without complication (HCC); BRCA positive; Unintentional weight loss Social History Tobacco Use Types Packs/Day Years Used Date Smoking Tobacco: Every Day Cigarettes Smokeless Tobacco: Never PHQ-2 Answer Date Recorded Total Score - Questions 1-9 1 05/0 05/2020 Sexually Active Control Partners Comments Yes Comments No Sex and Gender Information Value Date Recorded Sex Assigned at Not on file Legal Sex Female 10:31 AM PIPE PULLER Gender Identity Not on file Sexual Orientation [...] st Contact Info) Description 04/05/2024 11:30 AM PIPE PULLER Lab [facility] [address] [phone] Lab, Cc [facility] 04/05/2024 11:45 AM PIPE PULLER Office Visit [facility] [address] [phone] Dickson Tavarez MD [address] [place] [phone] documented as of this encounter Procedures Procedure Name Priority Date/Time Associated Diagnosis Comments CT ABDOMEN PELVIS W/ CONTRAST Routine 12/15/2023 10:46 AM CDT Ulcerative pancolitis without complication (HCC) BRCA positive Unintentional weight loss documented in this encounter Results * CT ABDOMEN PELVIS [...] MD IMG CT ORDERABLES Final Res ult documented in this encounter Visit Diagnoses Diagnosis Ulcerative pancolitis without complication (HCC) BRCA positive Genetic susceptibility to malignant neoplasm of breast Unintentional weight loss Loss of weight documented in this encounter Administered Medications Inactive Administered Medications - up to 3 most recent administrations Medication Order MAR Action Action Date Dose Rate Site iohexol (OMNIPAQUE) SOLN 100 mL 100 mL, Intravenous, ONCE, 1 dose, On 12/15/23 at 1030Indications:Ulcerative pancolitis without complication (HCC),BRCA positive,Unintentional weight loss Given 12/15/2023 10:30 AM CDT 100 mL documented in this encounter Additional Health Concerns Assessment Noted Time PHQ-9 Depression Total Score: 1 07/18/19 21 8:20 AM CDT documented as of this encounter Care Teams Municipal Court Judge Relationship Specialty Start Date End Date Demar Campbell [address] [place] [address] PCP - General Family Medicine 12/12/23 Demar Campbell [address] [place] [address] Family Medicine 12/12/23 Celina Ng MD [address] [place] [address] Consulting Physician Oncology 12/12/23 documented as of this encounter
--- OUTSIDE RECORDS SUMMARY | 2024-03-19 00:54 | XMS_ITS | Encounter Summary ---
Author Organization [facility] Care Team Providers Care Correction Warden Name Role Phone Demar Campbell Primary Care Provider [phone] Encounter Details Date Type Department Care Team (Latest Contact Info) Description 12/08/2023 Travel Social History Tobacco Use Types Packs/Day Years Used Date Smoking Tobacco: Every Day Cigarettes Smokeless Tobacco: Never PHQ-2 Answer Date Recorded Total Score - Questions 1-9 1 05/2020 Sexually Active Control Partners Comments Yes Comments No Sex and Gender Information Value Date Recorded Sex Assigned at Not on file Legal Sex Female 10:31 AM VAMP LINER Gender Identity Not on file Sexual Orientation [...] st Contact Info) Description 04/05/2024 11:30 AM VAMP LINER Lab [facility] [address] [phone] Lab, Cc [facility] 04/05/2024 11:45 AM VAMP LINER Office Visit [facility] [address] [place] [phone] Dickson Tavarez MD [address] [place] [phone] documented as of this encounter Visit Diagnoses Not on filedocumented in this encounter Additional Health Concerns Assessment Noted Time PHQ-9 Depression Total Score: 1 07/18/19 21 8:20 AM CDT documented as of this encounter Care Teams Correction Warden Relationship Specialty Start Date End Date Demar Campbell [address] [place] [address] PCP - General Family Medicine 07/20/20 12/11/23 documented as of this encounter
--- OUTSIDE RECORDS SUMMARY | 2024-03-19 00:54 | XMS_ITS | Encounter Summary ---
Author Organization [facility] Address [address] [place] [address] Phone Care Team Providers Care Inside Sales Executive Name Role Phone Juliann Frias MD Primary Care Provider [phone] Demar Campbell Primary Care Provider [phone] Reason for Visit * Reason Comments New Patient Encounter Details Date Type Department Care Team (Latest Contact Info) Description 07/17/2020 8:00 AM CDT Office Visit [facility] [address] [phone] Dickson Tavarez MD [address] [place] [phone] Ulcerative pancolitis without complication (HCC) (Primary Dx) Social History Tobacco Use Types Packs/Day Years Used Date Smoking Tobacco: Every Day Cigarettes Smokeless Tobacco: Never PHQ-2 Answer Date Recorded Total Score - Questions 1-9 1 05/2020 Sexually Active Control Partners Comments Yes Comments No Sex and Gender Information Value Date Recorded Sex Assigned at Not on file Legal Sex Female 10:31 AM FISH BAIT PROCESSING SUPERVISOR Gender Identity Not on file Sexual Orientation Not on file COVID-19 Exposure Response Date Recorded In the last month, have you been in contact with someone who was confirmed or suspected to have Coronavirus / COVID-19? No / Unsure 07/17/2020 7:53 AM CDT documented as of this encounter Last Filed Vital Signs Vital Sign Reading Time Taken Comments Blood Pressure 100/68 07/17/2020 8:15 AM CDT Pulse 70 07/17/2020 8:15 AM CDT Temperature 36.4 ??C (97.5 ??F) 07/17/2020 8:15 AM CD T Respiratory Rate 16 07/17/2020 8:15 AM CDT Oxygen Saturation 98% 07/17/2020 8:15 AM CDT Inhaled Oxygen Concentration - - Weight 80.1 kg (176 lb 9.6 oz) 07/17/2020 8:15 A M CDT Height 165.1 cm (5' 5 ) 07/17/2020 8:15 AM CDT Body Mass Index 29.39 07/17/2020 8:15 AM CDT documented in this encounter Progress Notes * Dickson Tavarez MD - 07/17/2020 8:00 AM CDT Patient: Tessy Medina Age: 35 y.o. : 1985 [facility] En[facility] Date: 07/17/2020 Care Team: Current Providers PCP: Juliann Frias MD Encounter Provider: Dickson Tavarez MD Referring Provider: not found Consulting Physician: Dickson Tavarez MD C: Dr. Demar Campbell (PCP) HISTORY OF PRESENT ILLNESS: Oralia Medina is a quite pleasant female born in 1985 who has four kids, the most recent two being a set of twins. Around that time, she was found to have beta thalassemia trait. She said nobody told her about this. She was tested in 2019 at [facility] I believe. She said she does have a brother who has required iron transfusions. She said she did get one blood transfusion at atime when it sounds like she had a very severe case of endometritis at [facility]. She also suffers from ulcerative colitis and has a BRCA2 mutation for which she is seeing Plastic Surgery and Breast Surgery at [facility] and will most likely undergo prophylactic bilateral mastectomy. She is also following with DRIER OPERATOR HELPER for the ovarian component. She overall feels well. Sometimes she does feel short of breath. She was found to be deficient of folic acid in the past. She was sent in a folic acid prescription but she said she never took this and it is still sitting in her bathroom. She saw it today. She believes this already. DIAGNOSIS: 1. Beta thalassemia trait with mild microcytosis and ferritin of 300. 2. BRCA2 mutation. 3. Folic acid deficiency. 4. Ulcerative colitis. PAST TREATMENT: 1. None. CURRENT TREATMENT: 1. Workup in progress/observation. TREATMENT GUIDELINES: Consistent with NCCN guidelines. PROGNOSIS: EXPECTED RESPONSE TO TREATMENT: EXPECTED QUALITY OF LIFE DURING TREATMENT: ECOG: PAIN: PLAN FOR PAIN: CODE STATUS: END OF LIFE: ASSESSMENT: 1. Beta thalassemia trait with mild microcytosis and ferritin of 300. 2. BRCA2 mutation. 3. Folic acid deficiency. 4. Ulcerative colitis. PLAN: 1. As far as her beta thalassemia, we can do observation and check her bloodwork yearly. We will doa full anemia workup to make sure she has no other issues and no further progressive folic acid deficiency. 2. Continue care with DRIER OPERATOR HELPER, Plastic Surgery and Breast Surgery for BRCA2 mutation. She should abstain from nicotine use due to the risk of pancreatic cancer. 3. The patient will contact me in the interim with any problems. TIME SPENT: REVIEW OF SYSTEMS: See HPI; [...] tenderness. LABORATORY/PATHOLOGY/IMAGING NOTES: Laboratory studies as per CareEverywhere. Dickson Tavarez MD, FACP/rmd Vitals: Vitals: 07/17/20 0815 BP: 100/68 BP Location: Left Arm BP Position: Sitting BP Cuff Size: Regular Pulse: 70 Resp: 16 Temp: 97.5 ??F (36.4 ??C) TempSrc: Temporal SpO2: 98% Weight: 176 lb 9.6 oz (80.1 kg) Height: 5' 5 (1.651 m) Body surface area is 1.92 meters squared. Body mass index is 29.39 kg/m??. Allergies: No Known Allergies PMH/SgH/FH/SH: Past medical, [...] name: Seth ??? Number of children: 4 ??? Years of education: Not on file ??? Highest education level: Not on file Tobacco Use ??? Smoking status: Current Every Day Smoker Types: Cigarettes ??? Smokeless tobacco: Never Used Substance and Sexual Activity ??? Sexual activity: [...] Current Medications: Outpatient Encounter Medications as of 07/17/2020 Medication Sig Dispense Refill ??? [DISCONTINUED] cephALEXin (KEFLEX) 500 MG Capsule TAKE 1 CAPSULE BY MOUTH EVERY 12 HOURS ??? ibuprofen (MOTRIN) 800 MG Tablet TAKE 1 TABLET BY MOUTH EVERY 6 TO 8 HOURS WITH FOOD NEEDED ??? [DISCONTINUED] meloxicam (MOBIC) 15 MG Tablet Take 1 Tablet by mouth daily. ??? [DISCONTINUED] methylPREDNISolone (MEDROL DOSPACK) 4 MG Tablet Therapy Pack FOLLOW PACKAGE DIRECTIONS ??? [DISCONTINUED] sulfamethoxazole-trimethoprim DS (BACTRIM DS, SEPTRA DS) 800- 160 MG Tablet TAKE 1 TABLET BY MOUTH TWICE DAILY FOR 7 DAYS ??? [DISCONTINUED] topiramate (TOPAMAX) 25 MG Tablet Take 25 mg by mouth every evening. ??? tretinoin (RETIN-A) 0.025 % Cream APPLY TOPICALLY TO THE AFFECTED AREA EVERY DAY No facility-administered encounter medications on file as of 07/17/2020. Labs: No visits with results within 7 Day(s) from this visit. Latest known visit with results is: Lab Requisition on 11/07/2016 Component Date Value Ref Range Status ? ? CA 125 11/07/2016 12 <35 U/mL Final documented in this encounter Plan of Treatment Upcoming Encounters Date Type Department Care Team (Late st Contact Info) Description 04/05/2024 11:30 AM FISH BAIT PROCESSING SUPERVISOR Lab [facility] [address] [phone] Lab, Cc [facility] 04/05/2024 11:45 AM FISH BAIT PROCESSING SUPERVISOR Office Visit [facility] [address] [phone] Dickson Tavarez MD [address] [place] [phone] Scheduled Orders Name Type Priority Associated Diagnoses Orde r Schedule COMPLETE BLOOD COUNT (CBC) WITH DIFF Lab Routine Ulcerative pancolitis without complication (HCC) Expected: 07/16/2021, Expires: 07/17/2021 CMP (COMPREHENSIVE METABOLIC PANEL) Lab Routine Ulcerative pancolitis without complication (HCC) Expected: 07/16/2021, Expires: 07/17/2021 VITAMIN B12 Lab Routine Ulcerative pancolitis without complication (HCC) Expected: 07/16/2021, Expires: 07/17/2021 FOLIC ACID (FOLATE) Lab Routine Ulcerative pancolitis without complication (HCC) Expected: 07/16/2021, Expires: 07/17/2021 IRON W/ IRON BINDING CAPACITY OH Lab Routine Ulcerative pancolitis without complication (HCC) Expected: 07/16/2021, Expires: 07/17/2021 RETICULOCYTE COUNT (RETIC) Lab Routine Ulcerative pancolitis without complication (HCC) Expected: 07/16/2021, Expires: 07/17/2021 FERRITIN Lab Routine Ulcerative pancolitis without complication (HCC) Expected: 07/16/2021, Expires: 07/17/2021 LACTATE DEHYDROGENASE (LD) Lab Routine Ulcerative pancolitis without complication (HCC) Expected: 07/16/2021, Expires: 07/17/2021 documented as of this encounter Results * THYROID STIMULATING HORMONE (TSH) (07/17/2020 8:55 AM CDT) TSH 2.80 0.45 - 5.33 uIU/mL [facility] Blood 07/17/2020 8:55 AM CDT Narrative [facility] - 07/17/2020 2:36 PM CDT Release to patient->Immediate us Dickson Tavarez MD CHEMISTRY ORDERABLES Final Result [facility] PLANNING DIVISION SUPERINTENDENT [facility] [address] [place] [address], [place] [phone] * (ABNORMAL) LACTATE DEHYDROGENASE (LD) (07/17/2020 8:55 AM CDT) LDH 126(L) 140 - 271 U/L [facility] Blood 07/17/2020 8:55 AM CDT Narrative [facility] - 07/17/2020 9:57 AM CDT Release to patient->Immediate us Dickson Tavarez MD CHEMISTRY ORDERABLES Final Result [facility] [address] [place] [address], [place] [phone] * HAPTOGLOBIN (07/17/2020 8:55 AM CDT) HAPTO 99 30 - 200 mg/dL [facility] Blood 07/17/2020 8:55 AM CDT [facility] [place] [facility] - 07/18/2020 2:10 PM CDT Release to patient->Immediate Dickson Tavarez MD CHEMISTRY ORDERABLES Final Result Performing Organization Address [facility] Co de Phone Number [facility] [address] [place] [address], [place] [phone] * (ABNORMAL) RETICULOCYTE COUNT (RETIC) (07/17/2020 8:55 AM CDT) Reticulocyte count 2.36(H) 0.50 - 1.70 % [facility] RET-He 23.00(L) 28.20 - 36.60 pg [facility] Comment: RET-He is a direct assessment of incorporation of iron into erythrocyte hemoglobin. It provides an indirect measure of the iron available for new erythropoiesis over past 2-4 days. Blood 07/17/2020 8:55 AM CDT [facility] - 07/17/2020 9:10 AM CDT Release to patient->Immediate us Dickson Tavarez MD HEMATOLOGY ORDERABLES Final Result Performing Organization Address [facility] Co de Phone Number [facility] [address] [place] [address], [place] [phone] * (ABNORMAL) IRON W/ IRON BINDING CAPACITY [place] (07/17/2020 8:55 AM CDT) IRON 87 50 - 212 ug/dL [facility] UIBC 149(L) 155 - 355 ug/dL [facility] TIBC 236(L) 261 - 478 ug/dl [facility] % Saturation 37 20 - 50 % [facility] 07/17/2020 8:55 AM CDT [facility] - 07/17/2020 9:40 AM CDT Release to patient->Immediate us Dickson Tavarez MD LAB SEND OUTS Final Resul t Performing Organization Address [facility]/ZIP Co de Phone Number [facility] [address] [place] [id number], [place] [phone] * (ABNORMAL) FERRITIN (07/17/2020 8:55 AM CDT) Ferritin 340(H) 11 - 307 ng/mL [facility] PLANNING DIVISION SUPERINTENDENT [facility] Blood 07/17/2020 8:55 AM CDT [facility] - 07/17/2020 2:36 PM CDT Release to patient->Immediate us Dickson Tavarez MD CHEMISTRY ORDERABLES Final Result Performing Organization Address [facility] Co de Phone Number CANCER PLANNING DIVISION SUPERINTENDENT [facility] [address] [place] [address], [place] [phone] * FOLIC ACID (FOLATE) (07/17/2020 8:55 AM CDT) Folate 11.77 >=5.90 ng/mL [facility] Blood 07/17/2020 8:55 AM CDT [facility] - 07/17/2020 2:36 PM CDT IS THE PATIENT REQUIRED TO BE FASTING FOR 12 HOURS?->No Release to patient->Immediate us Dickson Tavarez MD CHEMISTRY ORDERABLES Final Result Performing Organization Address [facility]/ZIP Co de Phone Number CANCER PLANNING DIVISION SUPERINTENDENT [facility] [address] [place] [address], [place] [phone] * VITAMIN B12 (07/17/2020 8:55 AM CDT) Vitamin B12 262 180 - 914 pg/mL CANCER PLANNING DIVISION SUPERINTENDENT [facility] Blood 07/17/2020 8:55 AM CDT Narrative [facility] PLANNING DIVISION SUPERINTENDENT [facility] - 07/17/2020 2:36 PM CDT Release to patient->Immediate Dickson Tavarez MD CHEMISTRY ORDERABLES Final Result CANCER PLANNING DIVISION SUPERINTENDENT [facility] [place] [address], * (ABNORMAL) CMP (COMPREHENSIVE METABOLIC PANEL) (07/17/2020 8:55 AM CDT) Glucose 106(H) 70 - 105 mg/dL [facility] Blood Urea Nitrogen 10 7 - 25 mg/dL [facility] Creatinine 0.5(L) 0.6 - 1.2 mg/dL [facility] Sodium 141 136 - 145 mEq/L [facility] Potassium 4.1 3.5 - 5.1 mEq/L [facility] Chloride 108(H) 98 - 107 mEq/L [facility] Bicarbonate 26 21 - 31 mEq/L [facility] Total Bilirubin 0.5 0.3 - 1.0 mg/dL [facility] Alk. Phosphatase 39 34 - 104 U/L [facility] Aspartate Aminotransferase 13 13 - 39 U/L [facility] Alanine Aminotransferase 15 7 - 52 U/L [facility] Total Protein 6.4 6.4 - 8.9 g/dL [facility] Albumin 4.2 3.5 - 5.7 g/dL [facility] Calcium 8.5(L) 8.6 - 10.3 mg/dL [facility] Anion Gap 11.1 7.0 - 15.0 mEq/L [facility] Globulin 2.2 2.0 - 3.5 g/dL [facility] EGFR (Non ) >60 >60 ml/min [facility] EGFR () >60 >60 ml/min [facility] Blood 07/17/2020 8:55 AM CDT Narrative [facility] - 07/17/2020 9:40 AM CDT IS THE PATIENT REQUIRED TO BE FASTING FOR 8 HOURS?->No Release to patient->Immediate Dickson Tavarez MD CHEMISTRY ORDERABLES Final Result [facility] [address] [place] [address], * (ABNORMAL) COMPLETE BLOOD COUNT (CBC) WITH DIFF (07/17/2020 8:55 AM CDT) WBC 9.6 4.0 - 10.0 10*3/uL [facility] HGB 10.3(L) 11.2 - 15.7 g/dL [facility] HCT 32.8(L) 34.1 - 44.9 % [facility] PLT 195 163 - 369 10*3/uL [facility] MPV See Below 9.4 - 12.4 fL [facility] RBC 4.70 3.93 - 5.22 10*6/uL [facility] MCV 70(L) 79 - 95 fL [facility] MCH 21.9(L) 25.6 - 32.2 pg [facility] MCHC 31.4(L) 32.2 - 36.5 g/dL [facility] RDW 18.5(H) 11.6 - 14.4 % [facility] Absolute Neutrophil Count 5,652 cells/uL [facility] Absolute Seg Count 5,652 1,440 - 6,600 cells/uL [facility] Absolute Josephine Count 862 160 - 1,200 cells/uL [facility] Absolute Eos Count 383(H) 0 - 300 cells/uL [facility] Absolute Baso Count 96 0 - 100 cells/uL [facility] Segmented Neutrophils 59 36 - 66 % [facility] Lymphocytes 27 19 - 40 % [facility] Monocytes 9 4 - 12 % [facility] Eosinophils 4(H) 0 - 3 % [facility] Basophils 1 0 - 1 % [facility] WBC Estimate Normal [facility] Platelet Estimate Normal CA [facility] RBC Morphology Abnormal [facility] Microcytosis 1+ [facility] Hypochromasia 1+ [facility] Anisocytosis 1+ [facility] Poikilocytosis 1+ [facility] Teardrop Cells 1+ [facility] Blood 07/17/2020 8:55 AM CDT Narrative [facility] - 07/17/2020 11:35 AM CDT Instrument unable to provide an accurate result Release to patient->Immediate us Dickson Tavarez MD HEMATOLOGY ORDERABLES Final Result Performing Organization Address City/State/[facility] Co de Phone Number [facility] [address] [place] [address], documented in this encounter Visit Diagnoses Diagnosis Ulcerative pancolitis without complication (HCC)- Primary Ulcerative pancolitis without complication (HCC) documented in this encounter Additional Health Concerns Assessment Noted Time PHQ-9 Depression Total Score: 1 07/18/19 8:20 AM CDT documented as of this encounter Care Teams Inside Sales Executive Relationship Specialty Start Date End Date Juliann Frias MD [address] [place] [address] PCP - General Family Medicine 11/08/16 07/19/20 Demar Campbell [facility] [place] [address] PCP - General Family Medicine 07/20/20 12/11/23 documented as of this encounter
--- OUTSIDE RECORDS SUMMARY | 2024-03-19 00:54 | XMS_ITS | Encounter Summary ---
Author Organization [facility] Address [address] [place] [address] Phone Care Team Providers Care Apparel Manager Name Role Phone Demar Campbell Primary Care Provider [phone] Encounter Details Date Type Department Care Team (Late st Contact Info) Description 12/08/2023 10:50 AM CDT Lab [facility] [address] [phone] Lab, Cc [facility] Ulcerative pancolitis without complication (HCC); BRCA positive Social History Tobacco Use Types Packs/Day Years Used Date Smoking Tobacco: Every Day Cigarettes Smokeless Tobacco: Never PHQ-2 Answer Date Recorded Total Score - Questions 1-9 1 05/2020 Sexually Active Control Partners Comments Yes Comments No Sex and Gender Information Value Date Recorded Sex Assigned at Not on file Legal Sex Female 10:31 AM BLASTING MINER Gender Identity Not on file Sexual Orientation [...] st Contact Info) Description 04/05/2024 11:30 AM BLASTING MINER Lab [facility] [address] [phone] Lab, [facility] 04/05/2024 11:45 AM BLASTING MINER Office Visit [facility] [address] [phone] Dickson Tavarez MD [address] [place] [phone] documented as of this encounter Procedures Procedure Name Priority Date/Time Associated Diagnosis Comments URINALYSIS WITH MICROSCOPIC [place] Routine 12/08/2023 10:57 AM CDT Ulcerative pancolitis without complication (HCC) BRCA positive UR TEST QUAL Routine 12/08/2023 10:57 AM CDT Ulcerative pancolitis without complication (HCC) BRCA positive documented in this encounter Results * (ABNORMAL) URINALYSIS WITH MICROSCOPIC [place] (12/08/2023 10:57 AM CDT) Urine Color Light Yellow Straw-Yel low [facility] Urine Clarity Clear Clear [facility] Urine Glucose NEG NEG mg/dL [facility] Urine Bilirubin NEG NEG mg/dL [facility] Urine Ketones NEG NEG mg/dL [facility] Urine Specific [place] 1.025 1.015 - 1.020 [facility] Urine Blood Trace(A) NEG mg/L [facility] Urine pH 5.5 5.0 - 8.0 [pH] [facility] Urine Protein NEG NEG mg/dL [facility] Urine Urobilinogen 0.2 0.2 - 1.0 mg/dL [facility] Urine Nitrite NEG NEG [facility] Urine Leukocytes NEG NEG [facility] Urine Epithelial Cells None None,Rare ,Few /LPF [facility] Urine Mucus None None /LPF [facility] Urine Cast None None /LPF [facility] Urine Bacteria None None /HPF [facility] R [facility] Urine Crystal None None /LPF [facility] Urine White Blood Cells 0-4 0 - 4 /HPF [facility] Urine Red Blood Cells 3-5(A) 0 - 2 /HPF [facility] 12/08/2023 10:5 7 AM CDT Narrative [facility] - 12/08/2023 12:14 PM CDT Release to patient->Immediate us Dickson Tavarez MD LAB SEND OUTS Final Resul t Performing Organization Address City/[facility]/ZIP Co de Phone Number [facility] [address] [place] [address], [place] [phone] * UR TEST QUAL (12/08/2023 10:57 AM CDT) Urine Test Negative Negative [facility] Urine Specific [place] 1.025 =/>1.010 [facility] Urine 12/08/2023 10:5 7 AM CDT [facility] - 12/08/2023 11:45 AM CDT Release to patient->Immediate us Dickson Tavarez MD URINE ORDERABLES Final Resu lt Performing Organization Address City/[facility] Co de Phone Number [facility] [address] [place] [address], [place] [phone] documented in this encounter Visit Diagnoses Diagnosis Ulcerative pancolitis without complication (HCC) BRCA positive Genetic susceptibility to malignant neoplasm of breast documented in this encounter Additional Health Concerns Assessment Noted Time PHQ-9 Depression Total Score: 1 07/18/19 21 8:20 AM CDT documented as of this encounter Care Teams Apparel Manager Relationship Specialty Start Date End Date Demar Campbell [address] [place] [address] PCP - General Family Medicine 07/20/20 12/11/23 documented as of this encounter
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
== END 2024-03-12 15:23 | disposition home or self-care (01) ==
PROVIDERS: PCP Emergency Medicine; Visit Provider Obstetrics & Gynecology
PROC: (CPT 49320; principal; 2024-03-12 10:30)
DX: N83.291 Other ovarian cyst, right side (principal); G89.18 Other acute postprocedural pain; E61.1 Iron deficiency; D56.9 Thalassemia, unspecified; F17.210 Nicotine dependence, cigarettes, uncomplicated; Z98.890 Other specified postprocedural states; Z87.19 Personal history of other diseases of the digestive system; Z80.41 Family history of malignant neoplasm of ovary
CPT/HCPCS: 58661; 58579; 88305; A9270; J1200; J1885; J2003; J2250; J2405; J2704; J3010; J7120